=== PATIENT | male | born 1950 | race Caucasian/White ===

== ENCOUNTER 2022-03-07 12:26 | Emergency (ER) | payer MEDICARE, BC, SELFPAY ==
[2022-03-07 12:38] VITALS: BP 159/79; PULSE 68; RESP 16; TEMP 36.6; O2SAT 94; BMI 24.4
[2022-03-07 12:44] VITALS: BP 160/77; PULSE 70; RESP 16; O2SAT 97
--- NOTE | 2022-03-07 12:53 | ED.GENADULT ---
HPI - General Adult General Time Seen by Provider: 12:53 Date Seen: 03/07/22 Chief complaint: Bug Bite Stated complaint: Bee sting right hand, allergic Time Seen by Provider: 03/07/22 12:28 Source: patient Mode of arrival: ambulatory Limitations: no limitations History of Present Illness HPI narrative: Patient is a 9 year white male who is allergic to be bites, was out in his yd and got bit through glove by some insect. This happened over an hour ago. Typically has reaction which can include hives and some tongue swelling in 20 minutes. This has not happened. He feels pretty well. He has no stinger in his right dorsum of his hand. He has got a quarter-size reddened area. No breathing difficulty is O2 sat is excellent. He is not allergic to any medicine he came in more so mostly for precautionary reasons Related Data Home Medications Medication Instructions Recorded Confirmed atorvastatin 40 mg tablet mg 03/07/22 chlorthalidone 25 mg tablet mg 03/07/22 glipizide 5 mg tablet, extended mg PO 03/07/22 release 24 hr lisinopril 20 mg tablet mg 03/07/22 metformin 500 mg tablet,extended mg PO 03/07/22 release 24 hr Allergies Allergy/AdvReac Type Severity Reaction Status Date / Time Bee venom Allergy Severe Difficulty Uncoded 03/05/22 10:15 Swallowing Penicillin Allergy Unknown Uncoded 03/05/22 10:15 Review of Systems Status of ROS: Reports: 6 or more systems reviewed and unremarkable except as noted in History and below [facility] Medical History Abnormal gait Constipation Surgical History History of right-sided carotid endarterectomy History of tonsillectomy (1968) Social History Narrative: history of tobacco use Exam Narrative: Exam Narrative: Objective patient's O2 sat is 94% on room air, he talks in even and nonlabored sentences. He denies any throat swelling any difficulty breathing. His right hand shows a reddened quarter-size wilfredo on his dorsum of his hand there is no stinger present. Const: Vital Signs, click to edit/add: Vital Signs - 24 hr 03/07/22 12:38 03/07/22 12:44 03/07/22 13:00 Temperature 97.9 F Pulse Rate [Left P ulse Oximeter] 68 70 68 Respiratory Rate 16 16 16 Blood Pressure [Le ft Upper Arm] 159/79 H 160/77 H 166/82 H Pulse Oximetry 94 97 95 03/07/22 13:02 03/07/22 13:30 Temperature Pulse Rate [Left P ulse Oximeter] 67 62 Respiratory Rate 16 16 Blood Pressure [Le ft Upper Arm] 146/78 H Pulse Oximetry 96 95 Course Vital Signs Vital signs: Initial Vital Signs Temperature 97.9 F 03/07/22 12:38 Temperature Source Temporal Artery Scan 03/07/22 12:38 Pulse Rate 68 03/07/22 12:38 Pulse Rhythm 03/07/22 12:38 Respiratory Rate 16 03/07/22 12:38 Blood Pressure 159/79 H 03/07/22 12:38 Blood Pressure Mean 105 03/07/22 12:38 Blood Pressure Position Sitting 03/07/22 12:38 Pulse Oximetry 94 03/07/22 12:38 Oxygen Delivery Method 03/07/22 12:38 Vital Signs Temperature 97.9 F 03/07/22 12:38 Pulse Rate 68 03/07/22 12:38 Respiratory Rate 16 03/07/22 12:38 Blood Pressure 159/79 H 03/07/22 12:38 Pulse Oximetry 94 03/07/22 12:38 Temperature 97.9 F 03/07/22 12:38 Pulse Rate 62 03/07/22 13:30 Respiratory Rate 16 03/07/22 13:30 Blood Pressure 146/78 H 03/07/22 13:30 Pulse Oximetry 95 03/07/22 13:30 Medical Decision Making MDM Narrative Medical decision making narrative: Patient because of his insect bite will be given prednisone 50 mg orally and Benadryl 25 mg orally. 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 It does sound like he has not had true anaphylactic reaction. Would recommend careful monitoring and recheck within the next couple of days with primary care as needed. Will observe him in the ED for a period of time and then immediately may be discharged home. Activity Level: No Restrictions Discharge Diet: Regular Prescriptions: No Action atorvastatin 40 mg tablet 0RF lisinopril 20 mg tablet 0RF glipizide 5 mg tablet extended release 24 hr PO 0RF chlorthalidone 25 mg tablet 0RF metformin 500 mg tablet extended release 24 hr PO 0RF Follow Up/Referrals: Santi Juarez MD [Primary Care Provider] - Stand Alone Forms: [employer] Info Instructions
[2022-03-07 13:00] VITALS: BP 166/82; PULSE 68; RESP 16; O2SAT 95
[2022-03-07] MEDS: diphenhydrAMINE 25 MG CAPSULE PO (13:01)
[2022-03-07 13:02] VITALS: PULSE 67; RESP 16; O2SAT 96
[2022-03-07] MEDS: predniSONE 10 MG TABLET 50 MG PO (13:02)
[2022-03-07 13:30] VITALS: BP 146/78; PULSE 62; RESP 16; O2SAT 95
== END 2022-03-07 13:53 | disposition home or self-care (01) ==
LOC: ED 13:11
PROVIDERS: Emergency Provider Family Medicine; PCP Family Medicine
DX: T63.441A Toxic effect of venom of bees, accidental (unintentional), initial encounter (principal)
CPT/HCPCS: 99282; 99283; A9270; J7512

== ENCOUNTER 2022-06-04 14:16 | Outpatient (CLI) | payer MEDICARE, BC, SELFPAY ==
--- OUTSIDE RECORDS SUMMARY | 2022-06-04 07:29 | XMS_ITS | Encounter Summary ---
:1950 Author Organization [place] Address [facility] [place] [address] Care Team Providers Name Role Phone Guero Hutchinson MD Primary Care Provider [phone] Encounter Details Date Type Department Care Team Description 11/14/2015 Hospital Pathology [facility] MD Jony Results [address] [facility] [address] [place], [place] [address] (Wo rk) Social History Tobacco Use Types Packs/Day Years Used Date Smoking Tobacco: Former Cigarettes 1 Smokeless Tobacco: Never Comments: quit 09/2005 Alcohol Use Standard Drinks/Week Comments Yes 0 (1 standard drink = 0.6 oz pure alcoho l) rarely Sex Assigned at Date Recorded Not on file documented as of this encounter Plan of Treatment Not on filedocumented as of this encounter Procedures Procedure Name Priority Date/Time Associated Diagnosis Comme nts CYTOLOGY NON TIMBER INSPECTOR Routine 11/14/2015 1:38 PM Resul ts for this CDT procedure are i n the results section. documented in this encounter Results Cytology non obgyn nurse (11/14/2015 1:38 PM CDT) Component Value Ref Test Analysis Performed At [facility] Range Method Time Signature Copath Report Patient Name: WONG MOLINA MR#: [id number] Specimen #: [id number] Collected: 11/14/2015 Received: 11/15/2015 Reported: 11/16/2015 12:09 Ordering Phy(s): GUERO HUTCHINSON SPECIMEN/STAIN PROCESS: Urine-voided ? Pap-Cyto x 1 ---- CYTOLOGIC INTERPRETATION: Urine-voided: ?? Negative for Malignancy Positive for crystals. Specimen Adequacy: Satisfactory for evaluation. Electronically signed out by: Brandt Monae M.D. Processed and screened at [facility] CLINICAL HISTORY: , GROSS: Urine-voided: ??Received 15 ml of light yellow, clear fluid, processed as 1 Pap stained Autocyte.. Microscopic: The AutoCyte the slide shows low cellularity wi th benign urothelial cells and the background of numerous small donavan ls. ??No malignant cells are seen. CPT Codes: A: 75737-[id number] TESTING LAB LOCATION: [facility] [address] ??[address] COLLECTION SITE: Client: ??[facility] Location: ??SA888 (F) Specimen Anatomical Collection Method Collection Time Receive d Time (Source) Location / / Volume Laterality 11/14/2015 1:38 PM 6 8:08 CDT AM CDT Guero Hutchinson MD LAB - [facility]ICAL SPECIM EN Performing Organization Address City/State/ZIP Code Phon e Number COPATH documented in this encounter Visit Diagnoses Not on filedocumented in this encounter Care Teams Educational Psychologist Relationship Specialty Start Date End Date Guero Hutchinson MD PCP - General Urology 11/14/15 [address] [address] documented as of this encounter
--- OUTSIDE RECORDS SUMMARY | 2022-06-04 07:29 | XMS_ITS | Clinical Summary ---
:1950 Author Organization [place] Address [facility] [place] [address] Care Team Providers Name Role Phone Guero Hutchinson MD Primary Care Provider [phone] Allergies Active Allergy Reactions Severity Noted Date Comments Bee 12/18/2004 Penicillins 11/17/2004 Medications Medication Sig Dispensed Refills Start Date End Date Status ASPIRIN 81 MG OR 1 TABLET DAILY 0 Active TABSIndications: Essential hypertension, benign EPINEPHrine (EPIPEN) Inject 0.3 mLs (0.3 1 each 3 3 Active 0.3 MG/0.3ML mg) into the muscle injectionIndications once as needed for : Bee allergy anaphylaxis status, Chronic rhinitis Additional Information Patient not taking. Reported on 09/10/2017 lisinopril-hydrochlorothiazide Take 1 tablet 90 tablet 3 03/20 Active (PRINZIDE,ZESTORETIC) 20-25 MG per by mouth every tabletIndications: Unspecified morning Needs essential hypertension labs for more refills atenolol (TENORMIN) 50 MG Take 1 tablet 30 tablet 11 03/20/2013 Active tabletIndications: Unspecified (50 mg) by essential hypertension mouth daily SIMVASTATIN PO 0 Activ e Active Problems Problem Noted Date Hypertension goal BP (blood pressure) < 140/90 012 Advanced directives, counseling/discussion 09/06/2011 Overview: PT will bring copy for chart. CARDIOVASCULAR SCREENING; LDL GOAL LESS THAN 130 06/11 Benign neoplasm of colon 05/28/2007 Allergic state 12/11/2005 Overview: Problem list name updated by automated p rocess. Provider to review Allergic rhinitis 12/11/2005 Overview: Problem list name updated by automated p rocess. Provider to review Resolved Problems Problem Noted Date Resolved Date Essential hypertension 05/10/2006 03/03/2013 Overview: Problem list name updated by automated p rocess. Provider to review [email or web address] 04/11/2005 05/15/2005 iamACCIDENT ON INDUSTR PREMISES 04/11/2005 05/15/20 05 Overexertion and strenuous and repetitive movements or loads 04/11/2005 05/15/2005 Overview: Problem list name updated by automated p rocess. Provider to review and confirm Imo Update utility Immunizations Name Administration Dates Next Due Influenza (IIV3) PF 05/12/2011, 04/12/2010 TD (ADULT, 7+) 11/17/2004 Family History Medical History Relation Comments Cancer Mother Relation Status Comments Brother Alive Father Mother Sister 1 Alive Sister 2 Alive Sister 3 Alive Sister 4 Alive Social History Tobacco Use Types Packs/Day Years Used Date Smoking Tobacco: Former Cigarettes 1 Smokeless Tobacco: Never Tobacco Cessation: Counseling Given: No Comments: quit 09/2005 Alcohol Use Standard Drinks/Week Comments Yes 0 (1 standard drink = 0.6 oz pure alcoho l) rarely Sex Assigned at Date Recorded Not on file Last Filed Vital Signs Vital Sign Reading Time Taken Comments Blood Pressure 122/78 09/10/2017 9:11 AM COMMUNITY RELATIONS SPECIALIST Pulse 70 09/10/2017 9:11 AM COMMUNITY RELATIONS SPECIALIST Temperature 36.7 ??C (98 ??F) 03/26/2013 9:28 AM CDT Respiratory Rate 18 03/26/2013 9:28 AM CDT Oxygen Saturation 98% 03/26/2013 9:28 AM CDT Inhaled Oxygen Concentration - - Weight 106.6 kg (235 lb) 09/10/2017 9:11 AM COMMUNITY RELATIONS SPECIALIST Height 188 cm (6' 2) 09/10/2017 9:11 AM COMMUNITY RELATIONS SPECIALIST Body Mass Index 30.17 09/10/2017 9:11 AM COMMUNITY RELATIONS SPECIALIST Plan of Treatment Health Maintenance Due Date Last Done Comments ANNUAL REVIEW OF HM ORDERS 1950 CT COLONOGRAPHY 1950 FIT-DNA (Cologuard) 1950 FIT 1950 FLEX SIG 1950 HEPATITIS B IMMUNIZATION (1 1950 of 3 - 3-dose series) COVID-19 Vaccine (#1) 1950 HEPATITIS C SCREENING 01/11/1970 LUNG CANCER SCREENING 01/11/2002 ZOSTER IMMUNIZATION (1 of 01/11/2002 2) MICROALBUMIN 11/22/2012 11/23/2011 BMP 03/26/2014 03/26/2013, 12/04/2012, 11/23/2011, Additional history exists CREATININE 03/26/2014 03/26/2013, 12/04/2012, 11/23/2011, Additional history exists DTAP/TDAP/TD IMMUNIZATION 11/17/2014 11/17/2004 (2 - Td or Tdap) ADVANCE CARE PLANNING 09/06/2016 09/06/2011 AORTIC ANEURYSM SCREENING 01/11/2017 (SYSTEM ASSIGNED) FALL RISK ASSESSMENT 01/11/2017 MEDICARE ANNUAL WELLNESS 01/11/2017 12/04/2012, 11/23/2011, VISIT 02/18/2008, Additional history exists Pneumococcal Vaccine: 65+ 01/11/2017 Years (1 - PCV) LIPID 03/26/2018 03/26/2013, 12/04/2012, 11/23/2011, Additional history exists COLONOSCOPY 11/23/2019 11/22/2009, 12/27/2004 COLORECTAL CANCER SCREENING 11/23/2019 PHQ-2 (once per calendar 08/12/2021 year) INFLUENZA VACCINE (#1) 2022 05/19/2014, 05/11/2012, 05/14/2011, Additional history exists IPV IMMUNIZATION Aged Out No longer eligi ble based on patient 's age to complete this topic MENINGITIS IMMUNIZATION Aged Out No longe r eligible based on patient 's age to complete this topic Insurance Payer Benefit Plan / Subscriber ID Effective Phone Address T ype Group Dates WORK COMP FAIRGIACOMO [id number] 2005-Pres [address] [place] [address] MEDICARE MEDICARE FOR HB [id number] 2017-Prese [phone] ATTN CLAIMS Medicare SUPPLEMENT nt [address] [place] [address] [id number] (Home) [place] [address] [id number] Worker's Employer 08/12/1999 [phone] [address] [place] Compensation 3 (Home) [facility] [place] Care Teams It Support Consultant Relationship Specialty Start Date End Date Guero Hutchinson MD PCP - General Urology 11/14/15 [address] [place] [address]
--- OUTSIDE RECORDS SUMMARY | 2022-06-04 07:29 | XMS_ITS | Encounter Summary ---
:1950 Author Organization [place] Address [facility] [place] [address] Care Team Providers Name Role Phone Guero Hutchinson MD Primary Care Provider [phone] Encounter Details Date Type Department Care Team Description 07/01/2019 Travel Social History Tobacco Use Types Packs/Day Years Used Date Smoking Tobacco: Former Cigarettes 1 Smokeless Tobacco: Never Comments: quit 09/2005 Alcohol Use Standard Drinks/Week Comments Yes 0 (1 standard drink = 0.6 oz pure alcoho l) rarely Sex Assigned at Date Recorded Not on file documented as of this encounter Plan of Treatment Not on filedocumented as of this encounter Visit Diagnoses Not on filedocumented in this encounter Care Teams Campground Manager Relationship Specialty Start Date End Date Guero Hutchinson MD PCP - General Urology 11/14/15 [address] [place] [address] documented as of this encounter
--- OUTSIDE RECORDS SUMMARY | 2022-06-04 07:29 | XMS_ITS | Encounter Summary ---
:1950 Author Organization [place] Address [facility] [place] [address] Care Team Providers Name Role Phone Boris Balderrama MD Primary Care Provider [phone] Reason for Visit Reason Comments Recheck Medication fasting Encounter Details Date Type Department Care Team Description 03/26/2013 Office Visit [facility] Boris Balderrama Benign hypertension (Primary Dx); [facility] HallLucho Hewitt MD ALLERGY, UNSPECIFIED; [address] [place] [address] BENIGN [place] [address] [phone] Social History Tobacco Use Types Packs/Day Years Used Date Smoking Tobacco: Former Cigarettes 1 Smokeless Tobacco: Never Comments: quit 09/2005 Alcohol Use Standard Drinks/Week Comments Yes 0 (1 standard drink = 0.6 oz pure alcoho l) rarely Sex Assigned at Date Recorded Not on file documented as of this encounter Last Filed Vital Signs Vital Sign Reading Time Taken Comments Blood Pressure 144/90 03/26/2013 9:28 AM CDT Pulse 57 03/26/2013 9:28 AM CDT Temperature 36.7 ??C (98 ??F) 03/26/2013 9:28 AM CDT Respiratory Rate 18 03/26/2013 9:28 AM CDT Oxygen Saturation 98% 03/26/2013 9:28 AM CDT Inhaled Oxygen Concentration - - Weight 103.4 kg (228 lb) 03/26/2013 9:28 AM CDT Height - - Body Mass Index 29.27 03/20/2013 2:49 PM CDT documented in this encounter Progress Notes Boris Balderrama MD - 03/26/2013 9:17 AM CDT SUBJECTIVE: Suresh Martinez is a 63 year old male who presents to clinic today for the following health issues: Hyperlipidemia Follow-Up ?? Following low fat/cholesterol diet?: not monitoring fat ?? Taking statin? No ?? Taking Niaspan/niacin? No ?? Other medications/supplements?: none Hypertension Follow-up ?? Outpatient blood pressures are being checked at work. Results are varies . ?? Low Salt Diet: not monitoring salt ?? Amount of exercise or daily activities, outside of work: active at work, walks about 10-12 miles during work ?? Problems taking medications regularly No ?? Medication side effects: none ?? Diet: regular (no restrictions) History Substance Use Topics ??? Smoking status: Former Smoker -- 1.0 packs/day Types: Cigarettes ??? Smokeless tobacco: Never Used Comment: quit 09/2005 ??? Alcohol Use: Yes rarely Problem list and histories reviewed & adjusted, as indicated. Additional history: as documented PROBLEMS TO ADD ON... Patient Active Problem List Diagnosis ??? ALLERGY, UNSPECIFIED ??? ALLERGIC RHINITIS NOS ??? BENIGN NEOPLASM LG BOWEL ??? CARDIOVASCULAR SCREENING; LDL GOAL LESS THAN 130 ??? Advanced directives, counseling/discussion ? ? Hypertension goal BP (blood pressure) < 140/90 History reviewed. No pertinent past surgical history. History Substance Use Topics ??? Smoking status: Former Smoker -- 1.0 packs/day Types: Cigarettes ??? Smokeless tobacco: Never Used Comment: quit 09/2005 ??? Alcohol Use: Yes rarely Family History Problem Relation Age of Onset ??? Cancer Mother REVIEW OF SYSTEMS Generally has been feeling well until this episode. No problems with vision, hearing, dental or neckpain.Has had airborne or ingestion allergy No chest pain, palpitations, dyspnea, change in bowel habits, blood in stool or dyspepsia. No rashes, changing moles, weakness, lassitude or back problems. No chronic issues . No dysuria or menstrual irregularity. Patient not a smoker. No problems with significant headaches. On exam the vital signs are stable Weight is stable Eyes show rojas No neck masses or thyromegaly.Ear nose and throat shows normal No bruits, murmers, rubs or extrasounds. No cardiomegaly or chest wall tenderness. Lungs clear, no abdominal masses or organomegaly. No CVA tenderness. Skin eval no rash No hernias, good range of motion neck, back and extremities. No abnormal skin lesions. Normal genitalia. Good peripheral pulses. No adenopathy. Normal gait and stance. Neck is supple. Back exam shows limited lateral flexion 401.1 Benign hypertension (primary encounter diagnosis) Comment: Plan: Comprehensive metabolic panel, Lipid panel reflex to direct LDL 995.3 ALLERGY, UNSPECIFIED Comment: Plan: 211.3 BENIGN NEOPLASM LG BOWEL Comment: Plan: rescreen as needed documented in this encounter Nursing Notes 03/26/2013 9:30 AM CDT >> SYLVESTER WIL[facility] Mar 26, 2013 9:31 AM Patient presents with: Recheck Medication - fasting *Patient states that he did not take bp medications this am, unsure if medications effect blood work Initial BP 144/90 Pulse 57 Temp 98 ??F (36.7 ??C) (Oral) Resp 18 Wt 228 lb (103.42 kg) SpO2 98% Estimated Body mass index is 29.27 kg/(m^2) as calculated from the following: Height as of 13: 6' 2(1.88 m). Weight as of this encounter: 228 lb(103.42 kg). BP completed using cuff size: large.Sylvester Patrick MA documented in this encounter Plan of Treatment Not on filedocumented as of this encounter Procedures Procedure Name Priority Date/Time Associated Diagnosis Comme nts LIPID REFLEX TO DIRECT Routine 03/26/2013 9:54 Benign hyperten noelle Results for this LDL PANEL AM CDT procedure are i n the results section. COMPREHENSIVE Routine 03/26/2013 9:54 Benign hypertension Resu lts for this METABOLIC PANEL AM CDT procedure ar e in the results section. documented in this encounter Results (ABNORMAL) Lipid panel reflex to direct LDL (03/26/2013 9:54 AM CDT) athologist Signature Cholesterol 221 (H) 0 - 200 [facility] mg/dL [facility] Comment: LDL Cholesterol is the primary guide to therapy. The NCEP recommends further evaluation of: patients with cholesterol greater than 200 mg/dL if additional risk facto rs are present, cholesterol greater than 240 mg/dL, triglycerides greater than 1 50 mg/dL, or HDL less than 40 mg/dL. Triglycerides 364 (H) 0 - 150 mg/dL [facility] HDL Cholesterol 26 (L) 40 - 110 mg/dL [facility] LDL Cholesterol Calculated 123 0 - 129 mg/dL [facility] Comment: LDL Cholesterol is the primary guide to therapy: LDL-cholesterol goal in high risk patients is <100 mg/dL and in very high risk patients is <70 mg/dL. VLDL-Cholesterol 73 (H) 0 - 30 mg/dL [facility] Cholesterol/HDL Ratio 8.7 (H) 0.0 - 5.0 [facility] Specimen Anatomical Collection Method Collection Time Receive d Time (Source) Location / / Volume Laterality Blood specimen 03/26/2013 9:54 AM 013 9:55 (specimen) CDT AM CDT Boris Balderrama MD LAB - BLOOD ORDERABLES Performing Organization Address City/State/ZIP Code Phon e Number [facility] [address] [place] [address] [facility] [address] [place] [address] (ABNORMAL) Comprehensive metabolic panel (03/26/2013 9:54 AM CDT) athologist Signature Sodium 140 133 - 144 [facility] mmol/L [facility] Potassium 4.4 3.4 - 5.3 [facility] mmol/L [facility] Chloride 103 94 - 109 [facility] mmol/L [facility] Carbon Dioxide 27 20 - 32 [facility] mmol/L [facility] Anion Gap 10 6 - 17 [facility] mmol/L [facility] Glucose 115 (H) 60 - 99 [facility] mg/dL [facility] Comment: Fasting specimen Urea Nitrogen 15 7 - 30 mg/dL [facility] Creatinine 0.90 0.66 - 1.25 mg/dL [facility] GFR Estimate 86 >60 mL/min/1.7m2 [facility] GFR Estimate If Black >90 >60 mL/min/1.7m2 [facility] Calcium 9.4 8.5 - 10.4 mg/dL [facility] Bilirubin Total 1.0 0.2 - 1.3 mg/dL [facility] Albumin 4.2 3.3 - 4.9 g/dL [facility] Comment: Reference range changed on 04/13. Protein Total 7.5 6.8 - 8.8 g/dL [facility] Comment: As of 07, reference range reflects plasma specimen type. Alkaline Phosphatase 53 40 - 150 U/L [facility] ALT 36 0 - 70 U/L [facility] AST 33 0 - 45 U/L [facility] Specimen Anatomical Collection Method Collection Time Receive d Time (Source) Location / / Volume Laterality Blood specimen 03/26/2013 9:54 AM 013 9:55 (specimen) CDT AM CDT Boris Balderrama MD LAB - BLOOD ORDERABLES Performing Organization Address City/State/ZIP Code Phon e Number [facility] [address] [place] [address] [phone] [facility] [address] [place] [address] documented in this encounter Visit Diagnoses Diagnosis Benign hypertension - Primary Essential hypertension, benign ALLERGY, UNSPECIFIED Allergy, unspecified not elsewhere class ified BENIGN NEOPLASM LG BOWEL Benign neoplasm of colon documented in this encounter Care Teams Manager Generation Relationship Specialty Start Date End Date Boris Balderrama MD PCP - General 02/20/02 11/13/15 [address] [place] [address] documented as of this encounter
--- OUTSIDE RECORDS SUMMARY | 2022-06-04 07:29 | XMS_ITS | Encounter Summary ---
:1950 Author Organization [place] Address [address] [place] [address]. [place] [address] Care Team Providers Name Role Phone Boris Balderrama MD Primary Care Provider [phone] Reason for Visit Reason Onset Date Comments Panel Management 03/03/2013 Encounter Details Date Type Department Care Team Description 03/03/2013 Telephone [facility] Boris Balderrama Panel Management Kindra Hewitt MD [address] [place] [address] [place] [id number] [phone] Social History Tobacco Use Types Packs/Day Years Used Date Smoking Tobacco: Former Cigarettes 1 Smokeless Tobacco: Never Comments: quit 09/2005 Alcohol Use Standard Drinks/Week Comments Yes 0 (1 standard drink = 0.6 oz pure alcoho l) rarely Sex Assigned at Date Recorded Not on file documented as of this encounter Miscellaneous Notes Telephone Encounter - Betsy Diaz - 03/11/2013 9:05 AM CDT Sent letter to patient - final attempt. Betsy Diaz Telephone Encounter - Naila Cosby - 03/03/2013 12:24 PM CDT Panel Management Review Date of last visit with a [place] provider: Dr. Balderrama on 12/04/2012. Date of next visit with a [place] provider: None. Problem List Patient Active Problem List Diagnosis ??? ALLERGY, UNSPECIFIED ??? ALLERGIC RHINITIS NOS ??? BENIGN NEOPLASM LG BOWEL ??? CARDIOVASCULAR SCREENING; LDL GOAL LESS THAN 130 ??? Advanced directives, counseling/discussion ? ? Hypertension goal BP (blood pressure) < 140/90 Health Maintenance List Health Maintenance Topic Date Due ??? Microalbumin Q1 Year( No Inbasket) 11/22/2012 ??? Influenza Vaccine (System Assigned) 05/12/2013 ??? Bmp Q1 Yr (No Inbasket) 12/04/2013 ??? Tetanus Immunization ( [place] Assigned) 11/17/2014 ??? Advance Directive Planning Q5 Yrs (No Inbasket) 09/06/2016 ??? Lipid Screen Q5 Yr Male (System Assigned) 12/04/2017 ??? Colon Cancer Screen (System Assigned) 11/23/2019 For diabetic patients with hypertension and/or hyperlipidemia, only choose diabetes. Patient has the following on his problem list: Hypertension Review Blood pressure goal on problem list: <140/90 Last three blood pressure readings: BP Readings from Last 3 Encounters: 12/04/12 120/80 11/24/12 146/100 11/23/11 150/76 Blood pressure: Passed Composite cancer screening Chart review shows that this patient is due/due soon for the following None Tobacco History History Smoking status ??? Former Smoker -- 1.0 packs/day ??? Types: Cigarettes Smokeless tobacco ??? Never Used Comment: quit 09/2005 Summary: Patient is due/failing the following: LDL Action needed: Patient needs office visit for abnormal lab results from 12/04. Pt was supposed to come in for OV to check for pre diabetes but never schedule. Type of outreach: Phone, left message for patient to call back. Questions for provider review: None Please indicate office visit, lab, MTM, or nurse appt if needed. Indicate fasting or not fasting. Naila Cosby CMA Chart routed to Care Team . documented in this encounter Plan of Treatment Not on filedocumented as of this encounter Visit Diagnoses Not on filedocumented in this encounter Care Teams [employer] Paralegal Relationship Specialty Start Date End Date Boris Balderrama MD PCP - General 02/20/02 11/13/15 [address] [place] [address] documented as of this encounter
--- OUTSIDE RECORDS SUMMARY | 2022-06-04 07:29 | XMS_ITS | Encounter Summary ---
:1950 Author Organization [place] Address [facility]0 [facility] [address] Care Team Providers Name Role Phone Boris Balderrama MD Primary Care Provider [phone] Reason for Visit Reason Onset Date Comments Panel Management 08/08/2013 Encounter Details Date Type Department Care Team Description 08/08/2013 Telephone [facility] Boris Balderrama Panel Management Center LineLucho Hewitt MD [address] [place] [address] [place] [address] [id number] [phone] Social History Tobacco Use Types Packs/Day Years Used Date Smoking Tobacco: Former Cigarettes 1 Smokeless Tobacco: Never Comments: quit 09/2005 Alcohol Use Standard Drinks/Week Comments Yes 0 (1 standard drink = 0.6 oz pure alcoho l) rarely Sex Assigned at Date Recorded Not on file documented as of this encounter Miscellaneous Notes Telephone Encounter - Parisa Hernadez - 08/08/2013 11:46 AM CST Panel Management Review Date of last visit with a [place] provider: Dr. NICHOLSON on 03/26/2013. Date of next visit with a [place] provider: None. Problem List Patient Active Problem [...] 05/12/2013 ??? Bmp Q1 Yr (No Inbasket) 03/26/2014 ??? Tetanus Immunization (System Assigned) 11/17/2014 ??? Advance Directive Planning Q5 Yrs (No Inbasket) 09/06/2016 ??? Lipid Screen Q5 Yr Male (System Assigned) 03/26/2018 ??? Colon Cancer Screen (System Assigned) 11/23/2019 For diabetic patients with hyperlipidemia, only choose diabetes. Patient has the following on his problem list: Hypertension Review Blood pressure goal on problem list: <140/90 Last three blood pressure readings: BP Readings from Last 3 Encounters: 03/26/13 144/90 03/20/13 136/60 12/04/12 120/80 Failed: BP Hyperlipidemia LDL goal on problem list: <160 Last LDL: LDL Cholesterol Calculated Date Value Range Status 03/26/2013 123 0 - 129 mg/dL Final LDL Cholesterol is the primary guide to therapy: LDL-cholesterol goal in high risk patients is <100 mg/dL and in very high risk patients is <70 mg/dL. LDL Cholesterol Direct Date Value Range Status 12/04/2012 113 0 - 129 mg/dL Final Optimal: <100 mg/dL Near Optimal: 100-129 mg/dL Borderline High: 130-159 mg/dL High: 160-189 mg/dL Very high: greater than or equal to 190 mg/dL Cannot estimate LDL when triglyceride exceeds 400 mg/dL LDL tested: passed Tobacco : Passed Composite cancer screening Chart review shows that this patient is due/due soon for the following None Tobacco History History Smoking status ??? Former Smoker -- 1.0 packs/day ??? Types: Cigarettes Smokeless tobacco ??? Never Used Comment: quit 09/2005 Summary: Patient is due/failing the following: BP CHECK Action needed: Patient needs nurse only appointment. Type of outreach: Phone, left message for patient to call back. Questions for provider review: None Please indicate office visit, lab, MTM, or nurse appt if needed. Indicate fasting or not fasting. Parisa Hernadez/ALVIN [place]---[facility] Chart routed to Care Team . PURPOSE CLERK documented in this encounter Plan of Treatment Not on filedocumented as of this encounter Visit Diagnoses Not on filedocumented in this encounter Care Teams Automobile Radiator Mechanic Relationship Specialty Start Date End Date Boris Balderrama MD PCP - General 02/20/02 11/13/15 [address] [place] [address] documented as of this encounter
--- OUTSIDE RECORDS SUMMARY | 2022-06-04 07:29 | XMS_ITS | Encounter Summary ---
:1950 Author Organization [place] Address [facility] [place] [address] Care Team Providers Name Role Phone Guero Hutchinson MD Primary Care Provider [phone] Reason for Visit Reason Comments Cystoscopy BTR Encounter Details Date Type Department Care Team Description 09/10/2017 Office Visit [facility] Guero Hutchinson Person al history of malignant neoplasm of bladder (Primary Dx); Urology Clinic [place] Borges MD Enlarged prostate [address] [place] [address] [place] [address] [phone] Social History Tobacco Use Types Packs/Day Years [...] Comments Blood Pressure 122/78 09/10/2017 9:11 AM IRRIGATOR VALVE PIPE Pulse 70 09/10/2017 9:11 AM IRRIGATOR VALVE PIPE Temperature - - Respiratory Rate - - Oxygen Saturation - - Inhaled Oxygen Concentration - - Weight 106.6 kg (235 lb) 09/10/2017 9:11 AM IRRIGATOR VALVE PIPE Height 188 cm (6' 2) 09/10/2017 9:11 AM IRRIGATOR VALVE PIPE Body Mass Index 30.17 09/10/2017 9:11 AM IRRIGATOR VALVE PIPE documented in this encounter Patient Instructions Patient InstructionsCalDavid trinh LPN - 09/10/2017 9:00 AM CST AFTER YOUR CYSTOSCOPY You have just completed a cystoscopy, or cysto, which allowed your physician to learn more about your bladder (or to remove a stent placed after surgery). We suggest that you continue to avoid caffeine, fruit juice, and alcohol for the next 24 hours, however, you are encouraged to return to your normal activities. A few things that are considered normal after your cystoscopy: * small amount of bleeding (or spotting) that clears within the next 24 hours * slight burning sensation with urination * sensation to of needing to avoid more frequently * the feeling of air in your urine * mild discomfort that is relieved with Tylonol Please contact our office promptly if you: * develop a fever above 101 degrees * are unable to urinate * develop bright red blood that does not stop * severe pain or swelling And of course, please contact our office with any concerns or questions [phone] GATOR VALVE PIPE documented in this encounter Progress Notes Guero Hutchinson MD - 09/10/2017 9:00 AM CST Office Visit Note [facility] UROLOGIC DIAGNOSES: History of bladder cancer and kidney stone CURRENT INTERVENTIONS: TURBT 2013 HISTORY: This is a 67-year-old gentleman who was diagnosed with bladder cancer in [facility] in 2013. He has had no recurrence since that time. He saw me once in 2015 for a surveillance cystoscopy. I had recommended that he come back to see me again in 1 year for his next surveillance cystoscopy at the time. He also has had a history of a kidney stone. He last had a KUB in November 2015 and it was negative. His PSA is normal today. He is here today for a surveillance cystoscopy as well. PAST MEDICAL HISTORY: Past Medical History: Diagnosis Date ??? Unspecified essential hypertension PAST SURGICAL HISTORY: No past surgical history on file. FAMILY HISTORY: Family History Problem Relation Age of Onset ??? CANCER Mother SOCIAL HISTORY: Social History Substance Use Topics ??? Smoking status: Former Smoker Packs/day: 1.00 Types: Cigarettes ??? Smokeless tobacco: Never Used Comment: quit 09/2005 ??? Alcohol use Yes Comment: rarely Current Outpatient Prescriptions Medication ??? SIMVASTATIN PO ??? ciprofloxacin (CIPRO) 500 MG tablet ??? lisinopril-hydrochlorothiazide (PRINZIDE,ZESTORETIC) 20-25 MG per tablet ??? atenolol (TENORMIN) 50 MG tablet ??? ASPIRIN 81 MG OR TABS ??? EPINEPHrine (EPIPEN) 0.3 MG/0.3ML injection No current facility-administered medications for this visit. PHYSICAL EXAM: Ht 1.88 m (6' 2) Wt 106.6 kg (235 lb) BMI 30.17 kg/m2 HEENT: Normocephalic and atraumatic Cardiac: Not done Back/Flank: Not done EDGE INKER UPPERS/PNS: Not done Respiratory: Normal non-labored breathing Abdomen: Soft nontender and nondistended Peripheral Vascular: Not done Mental Status: Not done Penis: Normal Scrotal skin: Normal, no lesions Testicles: Normal to palpation bilaterally Epididymis: Normal to palpation bilaterally Lymphatic: Normal inguinal lymph nodes Digital Rectal Exam: Cystoscopy: I performed flexible cystoscopy today and the bladder was normal throughout. No tumors identified throughout the bladder. On retroflexion of the scope the patient had an enlarged prostate, in particular he had an anterior intravesical segment present Imaging: None Urinalysis: UA RESULTS: No results for input(s): COLOR, APPEARANCE, URINEGLC, URINEBILI, URINEKETONE, SG, UBLD, URINEPH, PROTEIN, UROBILINOGEN, NITRITE, LEUKEST, RBCU, WBCU in the last [id number] hours. PSA: 2.0 today Post Void Residual: Other labs: None today IMPRESSION: No evidence of bladder cancer recurrence, enlarged prostate PLAN: We discussed the surveillance plan for his bladder cancer. He will need to come back sometime in thenext couple of weeks to give a urine cytology. Then I will see him back in 1 year for another PSA and surveillance cystoscopy. We will check a renal ultrasound at that time as well. We discussed the enlarged prostate. It is not causing him any symptoms at this time so for now we will observe this. Total Time: 20 minutes Total in Consultation: 15 minutes Guero Hutchinson M.D. GATOR VALVE PIPE documented in this encounter Nursing Notes David Jeff LPN - 09/10/2017 9:00 AM CST Chief Complaint Patient presents with ??? Cystoscopy BTR David Jeff LPN 9:13 AM September 10, 2017 Prior to the start of the procedure and with procedural staff participation, I verbally confirmed the patient???s identity using two indicators, relevant allergies, that the procedure was appropriate and matched the consent or emergent situation, and that the correct equipment/implants were available. Immediately prior to starting the procedure I conducted the Time Out with the procedural staff and re-confirmed the patient???s name, procedure, and site/side. I have wiped the patient off with the povidone-Iodine solution, draped them, used Lidocaine hydrochloride jelly, and instilled sterile water in to the bladder. (The Joint Commission universal protocol was followed.) Yes Sedation (Moderate or Deep): None David Jeff LPN 9:13 AM September 10, 2017 GATOR VALVE PIPE documented in this encounter Plan of Treatment Pending Results Name Type Priority Associated Diagnoses Date/Ti me Cytology non garage door service technician Lab Routine 09/10/2017 8:47 AM IRRIGATOR VALVE PIPE documented as of this encounter Procedures Procedure Name Priority Date/Time Associated Diagnosis Comme nts CYTOLOGY NON DEBT AND BUDGET COUNSELOR Routine 09/10/2017 8:47 AM IRRIGATOR VALVE PIPE PSA DIAG UROLOGIC Routine 09/10/2017 8:45 AM Resu lts for this PHYS IRRIGATOR VALVE PIPE procedure are i n the results section. documented in this encounter Results PSA Diag Urologic Phys (09/10/2017 8:45 AM IRRIGATOR VALVE PIPE) P athologist Signature PSA Diag 2.00 0.00 - 09/10/2017 [facility] 4.00 ng/mL 9:03 AM IRRIGATOR VALVE P[facility] Comment: Test performed by chemiluminesc ent immunoassay using LieboPack Specimen Anatomical Collection Method Collection Time Receive d Time (Source) Location / / Volume Laterality Blood specimen 09/10/2017 8:45 AM 018 8:46 (specimen) IRRIGATOR VALVE PIPE AM IRRIGATOR VALVE PIPE Guero Hutchinson MD LAB - BLOOD ORDERABLES Performing Organization Address City/State/ZIP Code Phon e Number [facility] [address] [phone] CLIN[address] documented in this encounter Visit Diagnoses Diagnosis Personal history of malignant neoplasm o f bladder - Primary Enlarged prostate Hypertrophy of prostate without urinary obstruction and other lower urinary tract symptoms (LUTS) documented in this encounter Care Teams Voice Systems Engineer Relationship Specialty Start Date End Date Guero Hutchinson MD PCP - General Urology 11/14/15 [address] [place] [address] documented as of this encounter
--- OUTSIDE RECORDS SUMMARY | 2022-06-04 07:29 | XMS_ITS | Encounter Summary ---
:1950 Author Organization [facility] Address [address] [place] [address]. [place] [address] Care Team Providers Name Role Phone Boris Balderrama MD Primary Care Provider Reason for Visit Reason Onset Date Comments Refill Request 12/04/2012 ATENOLOL 50MG Encounter Details Date Type Department Care Team Description 12/04/2012 Refill [facility] Boris Balderrama Refill Request (ATENOLOL [facility] PowersiteLucho Hewitt MD 50MG) [id number] [place] [id number] [phone] (Wo rk) Social History Tobacco Use Types Packs/Day Years Used Date Smoking Tobacco: Former Cigarettes 1 Smokeless Tobacco: Never Comments: quit 09/2005 Alcohol Use Standard Drinks/Week Comments Yes 0 (1 standard drink = 0.6 oz pure alcoho l) rarely Sex Assigned at Date Recorded Not on file documented as of this encounter Miscellaneous Notes Telephone Encounter - Connie Grubbs RPH - 12/04/2012 1:53 PM CDT Approved per pharmacist refill protocol. Patient is current on office visit and labs. Thanks. Connie Grubbs PharmD [facility] [email or web address] Telephone Encounter - Bridgett Fowler - 12/04/2012 10:56 AM CDT Last Fill Date: 09/04/12 Last Fill Quantity: 30 Last Office Visit: 12/04/12 Potassium Date Value Range Status 11/23/2011 4.5 3.4 - 5.3 mmol/L Final ] Creatinine Date Value Range Status 11/23/2011 0.92 0.66 - 1.25 mg/dL Final ] BP Readings from Last 3 Encounters: 12/04/12 120/80 11/24/12 146/100 11/23/11 150/76 ALT 25 11/23/2011 documented in this encounter Plan of Treatment Not on filedocumented as of this encounter Visit Diagnoses Diagnosis Unspecified essential hypertension - Arianne alvarado documented in this encounter Care Teams Bookkeeping Machine Operator Relationship Specialty Start Date End Date Boris Balderrama MD PCP - General 02/20/02 11/13/15 [address] [place] [address] documented as of this encounter
--- OUTSIDE RECORDS SUMMARY | 2022-06-04 07:29 | XMS_ITS | Clinical Summary ---
:1950 Author Organization [facility] [place] [address] Care Team Providers Name Role Phone Santi Juarez MD Primary Care Provider Allergies Active Allergy Reactions Severity Noted Date Comments Bee Pollen *Unknown 12/18/2004 Venom-Honey Bee Anaphylaxis High 04/18/2015 Penicillins *Unknown - Follow up 04/18/2015 ##No si milarities in side needed chains, very lo w to no risk of cross-s ensitivity to ANCEF. ANW Antimicrobial S tewardship Team 05/2019 Medications Medication Sig Dispensed Refills Start Date End Date Status BD ULTRA FINE LANCETS Use as directed 0 Active MISC EPINEPHrine (EpiPen 0 Active 2-Tae) 0.3 mg/0.3 mL injection blood sugar diagnostic Test once daily, 0 Active (TRUETEST TEST STRIPS) varying the times strip from before breakfast to 2 hours after starting a meal amLODIPine (NORVASC) 5 Take 2 tablets by 0 8 Active mg tablet mouth once daily. atorvastatin (LIPITOR) Take by mouth 0 12/05/2020 Active 40 mg tablet once daily in the evening. glipiZIDE Take by mouth 0 11/29/2020 Activ e extended-release once daily before (GLUCOTROL XL) 5 mg a meal. Extended-Release tablet chlorthalidone Take 12.5 mg by 0 10/12/2020 Active (HYGROTON) 25 mg tablet mouth once daily. aspirin chewable 81 mg Chew 81 mg by 0 Active chewable tablet mouth once daily with a meal. metFORMIN (GLUCOPHAGE Take 1,000 mg by 0 Active XR) 500 mg mouth 2 times Extended-Release tablet daily with meals. 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 Diabetes mellitus 04/18/2015 Gout 04/18/2015 Hematuria 04/18/2015 Hypercholesterolemia 04/18/2015 HTN (hypertension) 04/18/2015 Immunizations Name Administration Dates Next Due Influenza Virus, Unspecified 05/19/2014, 05/11/2012, 011 Tdap 11/17/2004 Social History Tobacco Use Types Packs/Day Years Used Date Former Smoker Cigarettes 1 40 Quit: 02/02/20 21 Smokeless Tobacco: Never Used Tobacco Cessation: Counseling Given: Yes Comments: pack a day Alcohol Use Standard Drinks/Week Comments Not Currently 0 (1 standard drink = 0.6 oz pure alcoho l) not for 5 years Alcohol Habits Answer Date Recorded How often do you have a drink containing alcohol? Not asked How many drinks containing alcohol do you have on a Not aske d typical day when you are drinking? How often do you have six or more drinks on one Not asked occasion? Comment: not for 5 years 12/07/2020 Sex Assigned at Date Recorded Not on file Obstetrics History Last Filed Vital Signs Vital Sign Reading Time Taken Comments Blood Pressure 154/90 12/21/2021 1:18 PM CDT Pulse 85 12/21/2021 1:18 PM CDT Temperature 36.5 ??C (97.7 ??F) 01/04/2021 8:00 AM CDT Respiratory Rate 16 01/04/2021 8:00 AM CDT Oxygen Saturation 97% 12/21/2021 1:18 PM CDT Inhaled Oxygen Concentration - - Weight 87.4 kg (192 lb 11.2 oz) 12/21/2021 1:18 PM CDT Height 188 cm (6' 2) 01/03/2021 6:29 AM CDT Body Mass Index 24.74 01/03/2021 6:29 AM CDT Plan of Treatment Health Maintenance Due Date Last Done Comments Pneumococcal series for age 65+ (1 01/11/1958 - PCV) Depression screening for age 12+ 1964 Hepatitis C screening for age 0601/11/1970 18-79 Lipids for age 45-75 01/11/1997 Zoster (shingles) series for age 0601/11/2002 50+ (1 of 2) Tetanus booster 11/17/2014 11/17/2004 Medicare Wellness for age 65+ 01/11/2017 COVID-19 vaccine series (4 - 07/27/2021 06/01/2021, 021, Booster for Pfizer series) 10/15/2020 BMI (ht and wt on same day) for 12/09/2021 12/09/2020, 11/11 age 18+ Influenza for age 65+ 04/12/2022 05/19/2014, 05/11/2012, 05/14/2011 Colonoscopy through age 75 04/01/2023 04/01/2018, 8, 11/29/2014, Additional history exists Tdap Completed 11/17/2004 AAA screening age 55-77 Completed 12/09/2020 Medical Devices Implanted Type Area Dandy Tender Device Shelf Model / Identifier Expiration Serial / Date Lot Tissue Pericardium 0.8x8cm Xenosure - [id number] Right: L emaitre 08/08/2026 0.8P8 / Implanted: Qty: 1 on 01/03/2021 by eCsar Jacobs MD at [facility] [employer] / Artery [id number] Results Not on filefrom Last 3 Months Insurance Payer Benefit Plan / Subscriber ID Effective Dates Phone Addre ss Type Group MEDICARE PART B MEDICARE PART B [id number] 2017-Presen ATTN: CLAIMS - HB USE ONLY HB ONLY t [address] [place] [address] MEDICARE PART A MEDICARE PART A [id number] 2017-Presen ATTN: CLAIMS - HB USE ONLY HB ONLY t [address] [place] [address] PREFERRED ONE PREFERRED ONE 2014-Prese [address] [address] [place] [address] MEDICARE - PB MEDICARE PB [id number] 2017-Adam ATTN : CLAIMS USE ONLY ONLY t [address] [place] [address] BLUE CROSS BLUE CROSS OF [id number] 2018-Preskenna [address] [place] rose marie [place] [phone] (Home) W [phone] [place] (Work) [id number] Suresh Martinez Personal/Family Self 1950 [address] (Home) [place] [address] Advance Directives Latest Code Status on File Code Status Date Activated Date Inactivated Comments Full Code 01/03/2021 6:00 AM 01/04/2021 1:54 PM Code Status Discussion: Not Discussed Care Teams Keypunch Operator Relationship Specialty Start Date End Date Santi Juarez MD PCP - General Family Practice 12/07/201999 [place] [address]
--- OUTSIDE RECORDS SUMMARY | 2022-06-04 07:29 | XMS_ITS | Encounter Summary ---
:1950 Author Organization [place] Address [facility] [place] [address] Care Team Providers Name Role Phone Guero Hutchinson MD Primary Care Provider [phone] Encounter Details Date Type Department Care Team Description 08/13/2019 Orders Only [facility] Guero Hutchinson ed prostate Urology Clinic Kelsi Borges MD (Primary Dx) [address] [place] [address] [place] [address] [phone] Social History Tobacco Use Types Packs/Day Years Used Date Smoking Tobacco: Former Cigarettes 1 Smokeless Tobacco: Never Comments: quit 09/2005 Alcohol Use Standard Drinks/Week Comments Yes 0 (1 standard drink = 0.6 oz pure alcoho l) rarely Sex Assigned at Date Recorded Not on file documented as of this encounter Plan of Treatment Not on filedocumented as of this encounter Visit Diagnoses Diagnosis Enlarged prostate - Primary Hypertrophy of prostate without urinary obstruction and other lower urinary tract symptoms (LUTS) documented in this encounter Care Teams Trench Pipe Layer Relationship Specialty Start Date End Date Guero Hutchinson MD PCP - General Urology 11/14/15 [address] [place] [address] documented as of this encounter
--- OUTSIDE RECORDS SUMMARY | 2022-06-04 07:29 | XMS_ITS | Encounter Summary ---
:1950 Author Organization [place] Address [facility] [place] [address] Care Team Providers Name Role Phone Rizwana Trejo MD Primary Care Provider Reason for Visit Reason Comments Insect Bites 2:15 sting happened back of head Encounter Details Date Type Department Care Team Description 03/20/2013 Office Visit [facility] Rizwana Trejo Chroni c rhinitis (Primary Dx); Clinic Kindra Hewitt MD Bee allergy status; [address] [place] [address] Unspecified [place] [address] [phone] Social History Tobacco Use Types Packs/Day Years Used Date Smoking Tobacco: Former Cigarettes 1 Smokeless Tobacco: Never Comments: quit 09/2005 Alcohol Use Standard Drinks/Week Comments Yes 0 (1 standard drink = 0.6 oz pure alcoho l) rarely Sex Assigned at Date Recorded Not on file documented as of this encounter Last Filed Vital Signs Vital Sign Reading Time Taken Comments Blood Pressure 136/60 03/20/2013 2:49 PM CDT Pulse 84 03/20/2013 2:49 PM CDT Temperature 36.8 ??C (98.3 ??F) 03/20/2013 2:49 PM CDT Respiratory Rate 20 03/20/2013 2:49 PM CDT Oxygen Saturation 96% 03/20/2013 2:49 PM CDT Inhaled Oxygen Concentration - - Weight 103.4 kg (228 lb) 03/20/2013 2:49 PM CDT Height 188 cm (6' 2) 03/20/2013 2:49 PM CDT Body Mass Index 29.27 03/20/2013 2:49 PM CDT documented in this encounter Progress Notes Rizwana Trejo MD - 03/20/2013 2:48 PM CDT SUBJECTIVE: Suresh Martinez is a 63 year old male who presents to clinic today for the following health issues: Insect Bite-Bee ?? Duration: 2:15pm ?? REVIEW OF SYSTEMS Generally has been feeling well until this episode. No problems with vision, hearing, dental or neckpain.Has has beesting and airborne or ingestion allergy No chest pain, palpitations, dyspnea, change in bowel habits, blood in stool or dyspepsia. No rashes, changing moles, weakness, lassitude or back problems. No chronic issues . No dysuria or menstrual irregularity. Patient no longer a smoker. No problems with significant headaches. 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 Current Outpatient Prescriptions Medication Sig ??? EPINEPHrine (EPIPEN) 0.3 MG/0.3ML injection Inject 0.3 mLs (0.3 mg) into the muscle once as needed for anaphylaxis ??? lisinopril-hydrochlorothiazide (PRINZIDE,ZESTORETIC) 20-25 MG per tablet Take 1 tablet by mouth every morning Needs labs for more refills ??? atenolol (TENORMIN) 50 MG tablet Take 1 tablet (50 mg) by mouth daily ??? ASPIRIN 81 MG OR TABS 1 TABLET DAILY Hypertension ROS: taking medications as instructed, no medication side effects noted, no TIA's, no chest pain on exertion, no dyspnea on exertion, no swelling of ankles. New concerns: beesting. Objective: BP 136/60 Pulse 84 Temp 98.3 ??F (36.8 ??C) (Oral) Resp 20 Ht 6' 2 (1.88 m) Wt 228 lb (103.42 kg) BMI 29.27 kg/m2 SpO2 96% Appearance healthy, alert and cooperative. General exam BP noted to be well controlled today in office, S1, S2 normal, no gallop, no murmur, chest clear, no JVD, no HSM, no edema. Lab review: labs are reviewed, up to date and normal. Assessment: Hypertension improved. Plan: repeat labs ordered prior to next appointment. documented in this encounter Nursing Notes 03/20/2013 2:45 PM CDT >> ALFREDO UNDERWOOD Fri Mar 20, 2013 4:03 PM See below, state director alerted [facility] nurse that pt was recently stung by a bee and has hx of severe allergic rx, usually carries epi pen but does not have with, currently no dyspnea or dysphagia, c/oslight throat irritation, Donita administered 0.3 of epinephrine stat, RIZWANA TREJO MD alerted and saw pt Alfredo Underwood RN, BSN Message handled by Nurse Triage. >> DONITA WADE SatMar 20, 2013 2:53 PM Patient presents with: Insect Bites - 2:15 sting happened back of head Initial BP 136/60 Pulse 84 Temp 98.3 ??F (36.8 ??C) (Oral) Resp 20 Ht 6' 2 (1.88 m) Wt 228 lb (103.42 kg) BMI 29.27 kg/m2 SpO2 96%BMIHIS@ BP completed using cuff size large rt Arm Health Maintenance Updated with Patient:Yes Tobacco Verified: Yes Payor/Verify RX Benefits/Reconcile Disp Completed if allowed: Yes Family History Updated: Yes Immunizations Up to Date: yes Mychart Offered: Yes Donita Wade MA documented in this encounter Plan of Treatment Not on filedocumented as of this encounter Visit Diagnoses Diagnosis Chronic rhinitis - Primary Bee allergy status Allergy to insects and arachnids Unspecified essential hypertension documented in this encounter Care Teams Pegger Dobby Looms Relationship Specialty Start Date End Date Rizwana Trejo MD PCP - General 02/20/02 11/13/15 [address] [place] [address] documented as of this encounter
--- OUTSIDE RECORDS SUMMARY | 2022-06-04 07:29 | XMS_ITS | Encounter Summary ---
:1950 Author Organization [place] Address [facility] [address] Care Team Providers Name Role Phone Guero Hutchinson MD Primary Care Provider [phone] Reason for Visit (Routine) - Closed Specialty Diagnoses / Procedures Referred By Contact Refer red To Contact Radiology / Radiology. Diagnoses Non epic, SB ORDER_ Rh Xray Rscc Procedures XR KUB [address] [employer] [address] [place] [address] Phone: Fax: Referral ID Status Reason Start Date Expiration Date Visits Requ ested Visits Authorized [id number] Closed 11/14/2015 11/13/2016 1 1 Encounter Details Date Type Department Care Team Description 11/14/2015 [facility] [place] [address] [facility] [address] [place] [address] [phone] Social History Tobacco Use Types Packs/Day Years Used Date Smoking Tobacco: Former Cigarettes 1 Smokeless Tobacco: Never Comments: quit 09/2005 Alcohol Use Standard Drinks/Week Comments Yes 0 (1 standard drink = 0.6 oz pure alcoho l) rarely Sex Assigned at Date Recorded Not on file documented as of this encounter Medications at Time of Discharge Medication Sig Dispensed Refills Start Date End Date ASPIRIN 81 MG OR 1 TABLET DAILY 0 TABSIndications: Essential hypertension, benign atenolol (TENORMIN) 50 Take 1 tablet (50 mg) 30 tablet 11 MG tabletIndications: by mouth daily Unspecified essential hypertension EPINEPHrine (EPIPEN) 0.3 Inject 0.3 mLs (0.3 mg) 1 each 3 03/20/2013 MG/0.3ML into the muscle once as injectionIndications: needed for anaphylaxis Bee allergy status, Chronic rhinitis lisinopril-hydrochloroth Take 1 tablet by mouth 90 tablet 3 03/20/2013 iazide every morning Needs (PRINZIDE,ZESTORETIC) labs for more refills 20-25 MG per tabletIndications: Unspecified essential hypertension documented as of this encounter Plan of Treatment Not on filedocumented as of this encounter Procedures Procedure Name Priority Date/Time Associated Diagnosis Comme nts XR KUB Routine 11/14/2015 2:02 PM Kidney stones Results for this CDT procedure are i n the results section . documented in this encounter Results XR KUB (11/14/2015 2:02 PM CDT) Anatomical Region Laterality Modality Abdomen/Pelvis Computed Radiography Specimen (Source) Anatomical Location Collection Method / Collectio n Time Received Time / Laterality Volume Impressions 11/14/2015 3:58 PM CDT IMPRESSION: Faint calcific density projects over the right kidney. There is a calcification in the right si de of the pelvis which is most likely vascular. Clinical correlation re commended. No other findings. MAJOR MEHTA MD Narrative 11/14/2015 3:58 PM CDT XR KUB 11/14/2015 3:57 PM HISTORY: Calculus of kidney ? Procedure Note Major Mehta MD - 11/14/2015Formatt ing of this note might be different from the original. XR KUB 11/14/2015 3:57 PM HISTORY: Calculus of kidney IMPRESSION: Faint calcific density proje cts over the right kidney. There is a calcification in the right si de of the pelvis which is most likely vascular. Clinical correlation re commended. No other findings. MAJOR MEHTA MD Guero Hutchinson MD IMG DIAGNOSTIC IMAGING ORDER [place]AGO documented in this encounter Visit Diagnoses Diagnosis Kidney stones Calculus of kidney documented in this encounter Care Teams President Educational Institution Relationship Specialty Start Date End Date Guero Hutchinson MD PCP - General Urology 11/14/15 [address] [place] [address] documented as of this encounter
--- OUTSIDE RECORDS SUMMARY | 2022-06-04 07:30 | XMS_ITS | Encounter Summary ---
:1950 Author Organization [place] Address [facility] [place] [address] Care Team Providers Name Role Phone Boris Balderrama MD Primary Care Provider [phone] Reason for Visit [facility] Physical Therapy (Routine) - Closed Specialty Diagnoses / Procedures Referred By Contact Refer red To Contact [facility] MED [address] [place] [address] Referral ID Status Reason Start Date Expiration Date Visits Requ ested Visits Authorized LBP/FV Closed 04/11/2005 07/11/2005 12 5 Encounter Details Date Type Department Care Team Description 04/17/2005 Therapy Visit [place] [facility] Nikki Aceves iamLUMBAGO; Medicine [facility] [address] iamAC CIDENT ON INDUSTR PREMISES; Physical Therapy [facility] iamACCID FROM OVEREXERTION [address] [place], [place] [address] [phone] Social History Tobacco Use Types Packs/Day Years Used Date Smoking Tobacco: Every Day Cigarettes 1.5 Alcohol Use Standard Drinks/Week Comments Yes 0 (1 standard drink = 0.6 oz pure alcoho l) rarely Sex Assigned at Date Recorded Not on file documented as of this encounter Progress Notes Nikki Aceves - 04/17/2005 2:04 PM CDT Please refer to the daily flowsheet for treatment today. Patient failed to follow-up with treatment plan. Discharge chart. Leonora Santos - 04/17/2005 1:30 PM CDT Addended by: LEONORA SANTOS on: 05/15/2005 9:11:20 AM Modules accepted: Orders documented in this encounter Plan of Treatment Not on filedocumented as of this encounter Procedures Procedure Name Priority Date/Time Associated Diagnosis Comme nts [facility] NEUROMUSCULAR Routine 04/17/2005 2:14 PM iamLUMBAGO RE-EDUCATION CDT iamACCIDENT ON INDUSTR PREMISES iamACCID FROM OVEREXERTION [facility] ULTRASOUND THERAPY Routine 04/17/2005 2:14 PM iamLUM BAGO CDT iamACCIDENT ON INDUSTR PREMISES iamACCID FROM OVEREXERTION [facility] MECHANICAL TRACTION Routine 04/17/2005 2:14 PM iamLU MBAGO THERAPY CDT iamACCIDENT ON INDUSTR PREMISES iamACCID FROM OVEREXERTION documented in this encounter Visit Diagnoses Diagnosis iamLUMBAGO Lumbago iamACCIDENT ON INDUSTR PREMISES Place of occurrence, industrial places a nd premises iamACCID FROM OVEREXERTION Overexertion and strenuous and repetitiv e movements or loads documented in this encounter Care Teams Dietary Internship Relationship Specialty Start Date End Date Boris Balderrama MD PCP - General 02/20/02 11/13/15 [address] [place] [address] documented as of this encounter
--- OUTSIDE RECORDS SUMMARY | 2022-06-04 07:30 | XMS_ITS | Encounter Summary ---
:1950 Author Organization [place] [facility] [place] [address] Care Team Providers Name Role Phone Boris Balderrama MD Primary Care Provider Reason for Visit Reason Comments Cough laryngitis Encounter Details Date Type Department Care Team Description 06/09/2007 Office Visit [facility] Boris Balderrama ACUTE LARYNGITIS WO [facility] [place] OBSTRUCTION (Primary [address] Dx) [place] [address] [phone] Social History Tobacco Use Types Packs/Day Years Used Date Smoking Tobacco: Former Cigarettes 1.5 Comments: quit 09/2005 Alcohol Use Standard Drinks/Week Comments Yes 0 (1 standard drink = 0.6 oz pure alcoho l) rarely Sex Assigned at Date Recorded Not on file documented as of this encounter Last Filed Vital Signs Vital Sign Reading Time Taken Comments Blood Pressure 112/72 06/09/2007 2:00 PM CDT Pulse - - Temperature 36.9 ??C (98.5 ??F) 06/09/2007 2:00 PM CDT Respiratory Rate - - Oxygen Saturation - - Inhaled Oxygen Concentration - - Weight 101.6 kg (224 lb) 06/09/2007 2:00 PM CDT Height 186.7 cm (6' 1.5) 06/09/2007 2:00 PM CDT Body Mass Index 29.15 06/09/2007 2:00 PM CDT documented in this encounter Progress Notes Connie Roy - 06/09/2007 3:01 PM CDT SUBJECTIVE: Suresh is a 57 year old male presenting with laryngitis. Onset of symptoms was 4 days ago. Sx were preceded by URI Sx that started 2 weeks ago. These Sx included productive cough, sinus pressure, fever, chills, rhinorrhea. Denies ear pain, SOB, or wheezing. Course of illness is improving slowly. Treatment measures tried include rest, vicks, and robitussin, with no improvement. 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 Past Medical History Diagnosis Date ??? HYPERTENSION NOS Medications the patient reported as taking as of 06/09/2007: ATENOLOL 50 MG OR TABS^ ONE DAILY^ Disp: 30^ Rfl: 5 LISINOPRIL-HYDROCHLOROTHIAZIDE 20-25 MG OR TABS^ ONE DAILY IN THE MORNING^ Disp: 30^ Rfl: 5 EPIPEN 2-MAIK^ Use as Directed PRN^ Disp: 1^ Rfl: 0 ASPIRIN 81 MG OR TABS^ 1 TABLET DAILY^ Disp: ^ Rfl: OBJECTIVE: General appearance: alert and in no apparent distress Skin color is pink Hydration status appears adequate with normal skin turgor and moist mucous membranes. HEENT: Conjunctiva are not injected without discharge. Left TM is normal: no effusions, no erythema, and normal landmarks. Right TM is normal: no effusions, no erythema, and normal landmarks. Nasal mucosa is normal. Oropharyngeal exam is normal: no lesions, erythema, adenopathy or exudate. Neck is supple with no adenopathy CARDIAC:NORMAL - regular rate and rhythm without murmur. RESP: Normal - Clear to auscultation without rales, rhonchi, or wheezing. ABDOMEN: Abdomen soft, non-tender. BS normal. No masses, organomegaly CXR Findings: Normal- no infiltrates, effusions, pneumothoraces, cardiomegaly or masses ASSESSMENT: Laryngitis PLAN: Cool mist vaporizer Follow up in 3 months. documented in this encounter Nursing Notes 06/09/2007 2:00 PM CDT >> LALI HOLLEY 06/09/2007 2:34 pm Patient presents with: Cough - laryngitis Initial BP 112/72 Temp (Src) 98.5 (Oral) Ht 6' 1.5 (1.87m) Wt 224 lbs (101.6kg) Body mass index is 29.15 kg/(m^2).. BP completed using cuff size large Lali Holley CMA documented in this encounter Plan of Treatment Not on filedocumented as of this encounter Visit Diagnoses Diagnosis Acute laryngitis, without mention of obs truction - Primary documented in this encounter Care Teams Clinical Documentation Improvement Specialist Relationship Specialty Start Date End Date Boris Balderrama MD PCP - General 02/20/02 11/13/15 [address] [place] [address] documented as of this encounter
--- OUTSIDE RECORDS SUMMARY | 2022-06-04 07:30 | XMS_ITS | Encounter Summary ---
:1950 Author Organization [place] Address [facility] [place] [address] Care Team Providers Name Role Phone Boris Balderrama MD Primary Care Provider Reason for Referral Consultation - Closed Specialty Diagnoses / Procedures Referred By Contact Refer red To Contact Diagnoses Benign neoplasm of colon Boris Balderrama [place] MD GASTROENTEROLOGY-[address] [place] [address] Phone: Fax: Referral ID Status Reason Start Date Expiration Date Visits Requ ested Visits Authorized [id number] Closed 05/28/2007 08/11/2011 1 1 Reason for Visit Reason Comments Recheck Medication and refills RECHECK due for repeat colonoscopy Encounter Details Date Type Department Care Team Description 05/28/2007 Office Visit [facility] Boris Balderrama HYPERT ENSION NOS; Clinic [place] MD Kash INSECT BITE TRUNK; [address] [facility] [id number] [place] [address] BENIGN [place] [address] [phone] Social History Tobacco Use Types Packs/Day Years Used Date Smoking Tobacco: Former Cigarettes 1.5 Comments: quit 09/2005 Alcohol Use Standard Drinks/Week Comments Yes 0 (1 standard drink = 0.6 oz pure alcoho l) rarely Sex Assigned at Date Recorded Not on file documented as of this encounter Last Filed Vital Signs Vital Sign Reading Time Taken Comments Blood Pressure 118/82 05/28/2007 4:30 PM CDT Pulse - - Temperature - - Respiratory Rate - - Oxygen Saturation - - Inhaled Oxygen Concentration - - Weight 102.1 kg (225 lb) 05/28/2007 4:30 PM CDT Height 190.5 cm (6' 3) 05/28/2007 4:30 PM CDT Body Mass Index 28.12 05/28/2007 4:30 PM CDT documented in this encounter Progress Notes Boris Balderrama - 05/31/2007 3:40 PM CDT SUBJECTIVE: CC: Suresh Martinez is a 57 year old male who presents for follow up of colon polyps, bp and issues with non-infected bug bite HPI: discussed allergy management, epi pen renewed PROBLEM LIST: Patient Active Problem List Diagnoses Code ??? ALLERGY, UNSPECIFIED 995.3 ??? ALLERGIC RHINITIS NOS 477.9 ??? HYPERTENSION NOS 401.9 ??? BENIGN NEOPLASM LG BOWEL 211.3 PAST MEDICAL HISTORY: Past Medical History Diagnosis Date ??? HYPERTENSION NOS PAST SURGICAL HISTORY: No past surgical history on file. CURRENT MEDICATIONS: Current outpatient prescriptions Medication Sig ??? ATENOLOL 50 MG OR TABS ONE DAILY ??? LISINOPRIL-HYDROCHLOROTHIAZIDE 20-25 MG OR TABS ONE DAILY IN THE MORNING ??? EPIPEN 2-MAIK Use as Directed PRN ??? ASPIRIN 81 MG OR TABS 1 TABLET DAILY FAMILY HISTORY: Family History Problem Relation ??? Cancer Mother HEALTH MAINTENANCE: REVIEW OF OUTSIDE RECORDS: NO REVIEW OF SYSTEMS: C: NEGATIVE for fever, chills, change in weight I: NEGATIVE for worrisome rashes, moles or lesions E/M: NEGATIVE for ear, mouth and throat problems R: NEGATIVE for significant cough or SOB CV: NEGATIVE for chest pain, palpitations or peripheral edema GI: NEGATIVE for nausea, abdominal pain, heartburn, or change in bowel habits : NEGATIVE for frequency, dysuria, or hematuria EXAM: BP 118/82 Ht 6' 3 (1.91m) Wt 225 lbs (102.1kg) GENERAL APPEARANCE: healthy, alert and no distress EXAM: GENERAL APPEARANCE: healthy, alert and no distress EYES: EOMI, fundi benign- PERRL HENT: ear canals and TM's normal and nose and mouth without ulcers or lesions RESP: lungs clear to auscultation - no rales, rhonchi or wheezes CV: regular rates and rhythm, normal S1 S2, no S3 or S4 and no murmur, click or rub - ABDOMEN: soft, nontender, no HSM or masses and bowel sounds normal ASSESSMENT/PLAN Encounter Diagnoses Code Name Primary? Qualifier ??? 401.9 HYPERTENSION NOS ??? 911.4 INSECT BITE TRUNK ??? 211.3 BENIGN NEOPLASM LG BOWEL Colonoscopy, allergy check I have discussed with patient the risks, benefits, medications, treatment options and modalities. I have instructed the patient to call or schedule a follow-up appointment if any problems or failureto improve. documented in this encounter Nursing Notes 05/28/2007 4:30 PM CDT >> RAYMUNDO DAVILA 05/28/2007 4:29 pm Patient presents with: Recheck Medication - and refills RECHECK - due for repeat colonoscopy Initial BP 118/82 Ht 6' 3 (1.91m) Wt 225 lbs (102.1kg) Body mass index is 28.12 kg/(m^2).. BP completed using cuff size large-r Eric Davila CMA documented in this encounter Plan of Treatment Not on filedocumented as of this encounter Procedures Procedure Name Priority Date/Time Associated Diagnosis Comme nts HCL BASIC METABOLIC Routine 05/28/2007 4:58 PM Hypertension No s Results for this PANEL CDT procedure are i n the results section. documented in this encounter Results (ABNORMAL) A.M.A. BASIC METABOLIC PANEL (05/28/2007 4:58 PM CDT) P athologist Signature Sodium 144 133 - 144 [facility] mmol/L [facility] Potassium 4.0 3.4 - 5.3 [facility] mmol/L [facility] Chloride 100 94 - 109 [facility] mmol/L [facility] Carbon Dioxide 29 20 - 32 [facility] mmol/L [facility] Anion Gap 15 6 - 17 [facility] mmol/L [facility] Glucose 101 (H) 60 - 99 [place] mg/dL [facility] Urea Nitrogen 16 7 - 30 [place] mg/dL [facility] Creatinine 1.11 0.80 - [place] 1.50 mg/dL [facility] GFR Estimate 73 >60 [place] mL/min/1.7 [facility] m2 LAB GFR Estimate If 88 >60 [place] Black mL/min/1.7 [facility] m2 LAB Calcium 9.3 8.5 - 10.4 [place] mg/dL [facility] Specimen Anatomical Collection Method Collection Time Receive d Time (Source) Location / / Volume Laterality 05/28/2007 4:58 PM 5:00 CDT PM CDT Boris Balderrama MD LABORATORY Performing Organization Address City/State/ZIP Code Phon e Number [facility] [address] [place] [address] [facility] documented in this encounter Visit Diagnoses Diagnosis Unspecified essential hypertension Trunk, insect bite, nonvenomous, without mention of infection(911.4) Trunk, insect bite, nonvenomous, without mention of infection Benign neoplasm of colon documented in this encounter Care Teams Live Hanger Relationship Specialty Start Date End Date Boris Balderrama MD PCP - General 02/20/02 11/13/15 [address] [place] [address] documented as of this encounter
--- OUTSIDE RECORDS SUMMARY | 2022-06-04 07:30 | XMS_ITS | Encounter Summary ---
:1950 Author Organization [place] Address [address] [place] [address]. [place] [address] Care Team Providers Name Role Phone Boris Balderrama MD Primary Care Provider [phone] Reason for Visit Reason Comments Insect Bites bee sting - allergic reactio n Refill Request Encounter Details Date Type Department Care Team Description 12/18/2004 Office Visit [facility] Boris Balderrama ALLERG IC RHINITIS NOS; [facility] [place] Hew[place] MD INSECT BITE TRUNK [address] [place] [address] [phone] Social History Tobacco Use Types Packs/Day Years Used Date Smoking Tobacco: Every Day Cigarettes 1.5 Alcohol Use Standard Drinks/Week Comments Yes 0 (1 standard drink = 0.6 oz pure alcoho l) rarely Sex Assigned at Date Recorded Not on file documented as of this encounter Last Filed Vital Signs Vital Sign Reading Time Taken Comments Blood Pressure 168/102 12/18/2004 9:45 AM CDT Pulse - - Temperature 36.7 ??C (98 ??F) 12/18/2004 9:45 AM CDT Respiratory Rate - - Oxygen Saturation - - Inhaled Oxygen Concentration - - Weight - - Height - - Body Mass Index - - documented in this encounter Progress Notes Boris Balderrama - 12/18/2004 9:31 AM CDT Suresh is a 54 year old male who presents for follow up of: bee sting on posterior trunk with sense of wheeze, past hx anaphylaxis, no mucosal edema, settling a little now:epi given and observation:rnew epipen for home Discussed the role of indoor and outdoor allergens in symptom occurrance and control and the interplay with Sinus disease and Lower Respiratory Diseases. Avoidance, manipulation and counteracting medications were discussed. Nasal steroid, non-sedating antihistamines. Leukotriene antagonists and systemic steroids where appropriate with disclosure of side effect profile of suggested meds. The role for desensitization and availability of Allergy Consult for failure to progress noted. There is no problem list on file for this patient. Previous Medical History: None on file There is no previous surgical history on file. Current outpatient prescriptions: EPINEPHRINE HCL (ANAPHYLAXIS) 1:1000 IM ERWIN 1 TIME ONLY EPIPEN 2-MAIK Use as Directed PRN ATENOLOL 25 MG OR TABS 1/2 TABLET DAILY EPIPEN 1:1000 IM ERWIN 1 TIME ONLY Pcn (penicillins) Bee Review of Systems: CONSTITUTIONAL:NEGATIVE for fever, chills, change in weight INTEGUMENTARY/SKIN: NEGATIVE for worrisome rashes, moles or lesions RESP:NEGATIVE for significant cough or SOB CV: NEGATIVE for chest pain, palpitations or peripheral edema GI: NEGATIVE for nausea, abdominal pain, heartburn, or change in bowel habits Examination: GENERAL APPEARANCE: healthy, alert, no distress EYES: Eyes grossly normal to inspection, fundi benign-no diabetic or hypertensive changes seen, PERRL RESP: lungs clear to auscultation - no rales, rhonchi or wheezes CV: regular rates and rhythm, normal S1 S2, no S3 or S4, no murmur, click or rub, no irregular beats ABDOMEN: soft, nontender, without hepatosplenomegaly or masses, bowel sounds normal ASSESSMENT: 477.9 ALLERGIC RHINITIS NOS 911.4 INSECT BITE TRUNK PLAN: epinephrine documented in this encounter Nursing Notes 12/18/2004 9:45 AM CDT >> LALI HOLLEY 12/18/2004 9:15 am Suresh Freitas Ronyabenarell presents for allergic reaction - bee sting and refill request. Initial BP 168/102 Temp (Src) 98 (Oral) Estimated Body Mass Index is 27.80 kg/(m^2) as calculated from: Height of 6' 0 (1.829m) as of 11/17/04 Weight of 205 lbs (92.987 kg) as of 11/17/04 . BP completed using cuff size: large. Lali Holley CMA documented in this encounter Plan of Treatment Not on filedocumented as of this encounter Visit Diagnoses Diagnosis Allergic rhinitis, cause unspecified Trunk, insect bite, nonvenomous, without mention of infection(911.4) Trunk, insect bite, nonvenomous, without mention of infection documented in this encounter Care Teams Bologna Maker Relationship Specialty Start Date End Date Boris Balderrama MD PCP - General 02/20/02 11/13/15 [address] [place] [address] documented as of this encounter
--- OUTSIDE RECORDS SUMMARY | 2022-06-04 07:30 | XMS_ITS | Encounter Summary ---
:1950 Author Organization [place] Address [facility] [place] [address] Care Team Providers Name Role Phone Boris Balderrama MD Primary Care Provider Reason for Visit Reason Onset Date Comments Refill Request 03/16/2011 lisinopril-hctz Encounter Details Date Type Department Care Team Description 03/16/[address] [facility] Boris Balderrama Refill Request [facility] [place] MD (lisinopril-hctz) [address] [place] [address] [phone] (Wo rk) Social History Tobacco Use Types Packs/Day Years Used Date Smoking Tobacco: Former Cigarettes 1.5 Comments: quit 09/2005 Alcohol Use Standard Drinks/Week Comments Yes 0 (1 standard drink = 0.6 oz pure alcoho l) rarely Sex Assigned at Date Recorded Not on file documented as of this encounter Miscellaneous Notes Telephone Encounter - Yessi Navarro - 03/16/2011 11:11 AM CDT Last office visit: Reason for visit: htn BP Readings from Last 2 Encounters: 03/28/10 138/80 03/09/09 180/88 CR 0.90 03/28/2010 POTASSIUM 4.3 03/28/2010 Medication APPROVED per standing orders LETTER SENT Yessi Navarro RN Telephone Encounter - Reilly Springer - 03/16/2011 10:48 AM CDT Lisinopril-hctz 20-25 last filled quantity #30 on 12/18/2010 at [facility] documented in this encounter Plan of Treatment Not on filedocumented as of this encounter Visit Diagnoses Diagnosis Unspecified essential hypertension - Arianne alvarado documented in this encounter Care Teams Wet Chemistry Analyst Relationship Specialty Start Date End Date Boris Balderrama MD PCP - General 02/20/02 11/13/15 [address] [place] [address] documented as of this encounter
--- OUTSIDE RECORDS SUMMARY | 2022-06-04 07:30 | XMS_ITS | Encounter Summary ---
:1950 Author Organization [place] Address [facility] [place] [address] Care Team Providers Name Role Phone Boris Balderrama MD Primary Care Provider Encounter Details Date Type Department Care Team Description 12/27/2004 Orders Only [facility] Boris Balderrama SIS NOT YET Clinic [place]ucho Hewitt MD DEFINED (Primary Dx) [address] [place] [address] [phone] Social History Tobacco Use Types Packs/Day Years Used Date Smoking Tobacco: Every Day Cigarettes 1.5 Alcohol Use Standard Drinks/Week Comments Yes 0 (1 standard drink = 0.6 oz pure alcoho l) rarely Sex Assigned at Date Recorded Not on file documented as of this encounter Progress Notes Montse Abad - 02/17/2007 9:30 AM CDT Addended by: MONTSE ABAD on: 02/17/2007 9:30:03 AM Modules accepted: Orders documented in this encounter Plan of Treatment Not on filedocumented as of this encounter Procedures Procedure Name Priority Date/Time Associated Diagnosis Comme nts COLONOSCOPY Routine 12/27/2004 DIAGNOSIS NOT YET DEFINED CL AFF SURGICAL PATHOLOGY Routine 12/27/2004 DIAGNOSIS NOT Y ET DEFINED documented in this encounter Results COLONOSCOPY (12/27/2004) Narrative This result has an attachment that is no t available. Boris Balderrama MD PROCEDURES SURGICAL PATHOLOGY (12/27/2004) Specimen (Source) Anatomical Location Collection Method / Collectio n Time Received Time / Laterality Volume 12/27/2004 Narrative This result has an attachment that is no t available. Boris Balderrama MD LABORATORY Performing Organization Address City/State/ZIP Code Phon e Number [facility] documented in this encounter Visit Diagnoses Diagnosis DIAGNOSIS NOT YET DEFINED - Primary documented in this encounter Care Teams Environmental Monitoring Technician Relationship Specialty Start Date End Date Boris Balderrama MD PCP - General 02/20/02 11/13/15 [address] [place] [address] documented as of this encounter
--- OUTSIDE RECORDS SUMMARY | 2022-06-04 07:30 | XMS_ITS | Encounter Summary ---
:1950 Author Organization [place] Address [address] [facility] [place] [address] Care Team Providers Name Role Phone Boris Balderrama MD Primary Care Provider [phone] Reason for Visit Reason Comments RECHECK Renew Roxicodone and check b ack. Encounter Details Date Type Department Care Team Description 12/04/2012 Office Visit [facility] Boris Balderrama HYPERT ENSION NOS (Primary Dx); Clinic Kindra Hewitt MD Well adult exam; [address] [address] [facility] ALLERGIC RHINITIS NOS; [place], [place] Back mu scle spasm; [id number] Unspecified essential hypertension [phone] Social History Tobacco Use Types Packs/Day Years Used Date Smoking Tobacco: Former Cigarettes 1 Smokeless Tobacco: Never Comments: quit 09/2005 Alcohol Use Standard Drinks/Week Comments Yes 0 (1 standard drink = 0.6 oz pure alcoho l) rarely Sex Assigned at Date Recorded Not on file documented as of this encounter Last Filed Vital Signs Vital Sign Reading Time Taken Comments Blood Pressure 120/80 12/04/2012 8:58 AM CDT Pulse 60 12/04/2012 8:58 AM CDT Temperature 36.4 ??C (97.6 ??F) 12/04/2012 8:58 AM CDT Respiratory Rate 16 12/04/2012 8:58 AM CDT Oxygen Saturation - - Inhaled Oxygen Concentration - - Weight 105.2 kg (232 lb) 12/04/2012 8:58 AM CDT Height - - Body Mass Index 29.79 11/24/2012 8:49 AM CDT documented in this encounter Progress Notes Boris Balderrama MD - 12/04/2012 9:15 AM CDT Subjective: Suresh Martinez is a 62 year old male with hypertension. For annual exam, bp labs , new issues with back Current Outpatient Prescriptions Medication Sig ??? oxyCODONE (ROXICODONE) 5 MG immediate release tablet Take 1-2 tablets by mouth every 6 hours as needed for pain. ??? diazepam (VALIUM) 5 MG tablet Take 1 tablet by mouth every 12 hours as needed (muscle spasm). ??? atenolol (TENORMIN) 50 MG tablet Take 1 tablet by mouth daily. ??? lisinopril-hydrochlorothiazide (PRINZIDE,ZESTORETIC) 20-25 MG per tablet Take 1 tablet by mouth every morning. Needs labs for more refills ??? ASPIRIN 81 MG OR TABS 1 TABLET DAILY Hypertension ROS: taking medications as instructed, no medication side effects noted, no TIA's, no chest pain on exertion, no dyspnea on exertion, no swelling of ankles. New concerns: has had some back pain flareup, no specific trauma. Objective: BP 120/80 Pulse 60 Temp 97.6 ??F (36.4 ??C) (Oral) Resp 16 Wt 232 lb (105.235 kg) Appearance healthy, alert, mild distress and cooperative. General exam BP noted to be well controlled today in office, S1, S2 normal, no gallop, no murmur, chest clear, no JVD, no HSM, no edema. Lab review: labs are reviewed, up to date and normal. Assessment: Hypertension . Plan: orders and follow up as documented in [facility] SUBJECTIVE: CC:well adult HPI: back acting up, HAS QUIT SMOKING AND feels tremendous, hopes to retire in a year or two, no soboe, works at [employer] in [employer], PROBLEM LIST: Patient Active Problem List Diagnosis ??? ALLERGY, UNSPECIFIED ??? ALLERGIC RHINITIS NOS ??? HYPERTENSION NOS ??? BENIGN NEOPLASM LG BOWEL ??? CARDIOVASCULAR SCREENING; LDL GOAL LESS THAN 130 ??? Advanced directives, counseling/discussion ? ? Hypertension goal BP (blood pressure) < 140/90 PAST MEDICAL HISTORY: Past Medical History Diagnosis Date ??? Unspecified essential hypertension PAST SURGICAL HISTORY: History reviewed. No pertinent past surgical history. CURRENT MEDICATIONS: Current Outpatient Prescriptions Medication Sig ??? lisinopril-hydrochlorothiazide (PRINZIDE,ZESTORETIC) 20-25 MG per tablet Take 1 tablet by mouth every morning. Needs labs for more refills ??? oxyCODONE (ROXICODONE) 5 MG immediate release tablet Take 1-2 tablets by mouth every 6 hours as needed for pain. ??? diazepam (VALIUM) 5 MG tablet Take 1 tablet by mouth every 12 hours as needed (muscle spasm). ??? atenolol (TENORMIN) 50 MG tablet Take 1 tablet by mouth daily. ??? ASPIRIN 81 MG OR TABS 1 TABLET DAILY FAMILY HISTORY: Family History Problem Relation Age of Onset ??? Cancer Mother HEALTH MAINTENANCE: REVIEW OF OUTSIDE RECORDS: NO REVIEW OF SYSTEMS: C: NEGATIVE for fever, chills INTEGUMENTARY/SKIN: irritated elzbieta keratosis on back of neck in hair area, removal vs observe E: NEGATIVE for vision changes E/M: NEGATIVE for ear, mouth and throat problems R: NEGATIVE for significant cough or SOB CV: NEGATIVE for chest pain, palpitations GI: NEGATIVE for nausea, abdominal pain, heartburn, or change in bowel habits : NEGATIVE for frequency, dysuria, or hematuria M: NEGATIVE for significant arthralgias or myalgia N: NEGATIVE for weakness, dizziness or paresthesias or headache NVS:no headache or balance issus INTEG:no moles or new rashes LYMPH:no nodes or night sweats EXAM: BP 120/80 Pulse 60 Temp 97.6 ??F (36.4 ??C) (Oral) Resp 16 Wt 232 lb (105.235 kg) GENERAL APPEARANCE: healthy, alert and no distress EXAM: GENERAL APPEARANCE: healthy, alert and no distress EYES: EOMI, PERRL HENT: ear canals and TM's normal and nose and mouth without ulcers or lesions NECK: no adenopathy, no asymmetry, masses, or scars and thyroid normal to palpation RESP: lungs clear to auscultation - no rales, rhonchi or wheezes CV: regular rates and rhythm, normal S1 S2, no S3 or S4 and no murmur, click or rub - ABDOMEN: soft, nontender, no HSM or masses and bowel sounds normal Rectal exam: prostate symmetric w/o nodularity, no masses palpated MS: extremities normal- no gross deformities noted, no evidence of inflammation in joints, FROM in all extremities. SKIN: no suspicious lesions or rashes BACK:no tenderness or pain on straight let raise DX WELL ADULT ASSESSMENT/PLAN 1. HYPERTENSION NOS 2. Well adult exam 3. ALLERGIC RHINITIS NOS 4. Back muscle spasm 5. Unspecified essential hypertension Get mri for his back on and off for five years, has radiculitis with this episode I have discussed with patient the risks, benefits, medications, treatment options and modalities. I have instructed the patient to call or schedule a follow-up appointment if any problems or failureto improve. . documented in this encounter Nursing Notes 12/04/2012 9:00 AM CDT >> ADA OCHOA [facility] Dec 04, 2012 9:03 AM Patient presents with: RECHECK - Renew Roxicodone and check back. Initial BP 120/80 Pulse 60 Temp 97.6 ??F (36.4 ??C) (Oral) Resp 16 Wt 232 lb (105.235 kg) Estimated Body mass index is 29.79 kg/(m^2) as calculated from the following: Height as of 13: 6' 2(1.88 m). Weight as of this encounter: 232 lb(105.235 kg).. BP completed using cuff size: regular Ada Jennings CMA([facility]) documented in this encounter Plan of Treatment Not on filedocumented as of this encounter Procedures Procedure Name Priority Date/Time Associated Diagnosis Comme nts PROSTATE SPECIFIC Routine 12/04/2012 9:34 Well adult exam Resu lts for this ANTIGEN SCREEN AM CDT procedure are in the results section. LIPID REFLEX TO DIRECT Routine 12/04/2012 9:34 HYPERTENSION NO S Results for this LDL PANEL AM CDT procedure are i n the results section. LDL CHOLESTEROL DIRECT Routine 12/04/2012 9:34 Re sults for this AM CDT procedure are i n the results section. COMPREHENSIVE Routine 12/04/2012 9:34 HYPERTENSION NOS Results for this METABOLIC PANEL AM CDT procedure ar e in the results section. documented in this encounter Results LDL cholesterol direct (12/04/2012 9:34 AM CDT) P athologist Signature LDL Cholesterol 113 0 - 129 [facility] Direct mg/dL [facility] Comment: Optimal: ? <100 mg/dL Near Optimal: ? 100-129 mg/dL Borderline High: ??130-159 mg/dL High: ? 160-189 mg/dL Very high: ??greater than or equal to 1 90 mg/dL Cannot estimate LDL when triglyceride e xceeds 400 mg/dL Specimen Anatomical Collection Method Collection Time Receive d Time (Source) Location / / Volume Laterality 12/04/2012 9:34 AM 201 3 9:37 CDT AM CDT Boris Balderrama MD LAB - BLOOD ORDERABLES Performing Organization Address [facility] Phon e Number [facility] [address] [place] [phone] [facility] [address] [place] [phone] PSA, screen (12/04/2012 9:34 AM CDT) athologist Signature PSA 2.06 0 - 4 ug/L [facility] Specimen Anatomical Collection Method Collection Time Receive d Time (Source) Location / / Volume Laterality Blood specimen 12/04/2012 9:34 AM 013 9:37 (specimen) CDT AM CDT Boris Balderrama MD LAB - BLOOD ORDERABLES Performing Organization Address [facility] Phon e Number [facility] [address] [place] [phone] [facility] [address] [place] [phone] (ABNORMAL) Comprehensive metabolic panel (12/04/2012 9:34 AM CDT) P athologist Signature Sodium 138 133 - 144 [facility] mmol/L [facility] Potassium 4.7 3.4 - 5.3 [facility] mmol/L [facility] Chloride 99 94 - 109 [facility] mmol/L [facility] Carbon Dioxide 26 20 - 32 [facility] mmol/L [facility] Anion Gap 12 6 - 17 [facility] mmol/L [facility] Glucose 189 (H) 60 - 99 [facility] mg/dL [facility] Urea Nitrogen 24 7 - 30 [facility] mg/dL [facility] Creatinine 1.00 0.66 - [facility] 1.25 mg/dL [facility] GFR Estimate 76 >60 [facility] mL/min/1.7 [facility] m2 LAB GFR Estimate If >90 >60 [facility] Black mL/min/1.7 [facility] m2 LAB Calcium 9.4 8.5 - 10.4 [facility] mg/dL [facility] Bilirubin Total 0.8 0.2 - 1.3 [facility] mg/dL [facility] Albumin 4.2 3.3 - 4.9 [facility] g/dL [facility] Comment: Reference range changed on 04/13. Protein Total 7.2 6.8 - 8.8 g/dL [facility] Comment: As of 07, reference range reflects plasma specimen type. Alkaline Phosphatase 58 40 - 150 U/L [facility] ALT 46 0 - 70 U/L [facility] AST 45 0 - 45 U/L [facility] Specimen Anatomical Collection Method Collection Time Receive d Time (Source) Location / / Volume Laterality Blood specimen 12/04/2012 9:34 AM 013 9:37 (specimen) CDT AM CDT Boris Balderrama MD LAB - BLOOD ORDERABLES Performing Organization Address City/State/ZIP Code Phon e Number [facility] [address] [place] [address] [facility] [address] [place] [address] (ABNORMAL) Lipid panel reflex to direct LDL (12/04/2012 9:34 AM CDT) athologist Signature Cholesterol 182 0 - 200 [facility] mg/dL CLINIC LAB Comment: LDL Cholesterol is the primary guide to therapy. The NCEP recommends further evaluation of: patients with cholesterol greater than 200 mg/dL if additional risk facto rs are present, cholesterol greater than 240 mg/dL, triglycerides greater than 1 50 mg/dL, or HDL less than 40 mg/dL. Triglycerides 407 (H) 0 - 150 mg/dL [facility] HDL Cholesterol 24 (L) 40 - 110 mg/dL [facility] LDL Cholesterol Cannot estimate LDL 0 - 129 mg/dL [facility] Calculated when triglyceride CLINIC LAB exceeds 400 mg/dL VLDL-Cholesterol Cannot estimate VLDL 0 - 30 mg/dL [facility] when triglyceride CLINIC LAB exceeds 400 mg/dL. Cholesterol/HDL Ratio 7.7 (H) 0.0 - 5.0 [facility] Specimen Anatomical Collection Method Collection Time Receive d Time (Source) Location / / Volume Laterality Blood specimen 12/04/2012 9:34 AM 013 9:37 (specimen) CDT AM CDT Boris Balderrama MD LAB - BLOOD ORDERABLES Performing Organization Address City/State/ZIP Code Phon e Number [facility] [address] [place] [address] [phone] [facility] [address] [place] [address] [phone] documented in this encounter Visit Diagnoses Diagnosis HYPERTENSION NOS - Primary Unspecified essential hypertension Well adult exam Routine general medical examination at a [facility] care facility ALLERGIC RHINITIS NOS Allergic rhinitis, cause unspecified Back muscle spasm Other symptoms referable to back documented in this encounter Care Teams Marketing Proposal Coordinator Relationship Specialty Start Date End Date Boris Balderrama MD PCP - General 02/20/02 11/13/15 [address] [place] [address] documented as of this encounter
--- OUTSIDE RECORDS SUMMARY | 2022-06-04 07:30 | XMS_ITS | Encounter Summary ---
:1950 Author Organization [place] Address [address] [place] [address]. [place] [address] Care Team Providers Name Role Phone Rizwana Trejo MD Primary Care Provider Encounter Details Date Type Department Care Team Description 11/30/2004 Telephone [facility] Rizwana Trejo [place] MD [address] [place] [address] [phone] [place] [address] (Wo rk) Social History Tobacco Use Types Packs/Day Years Used Date Smoking Tobacco: Every Day Cigarettes 1.5 Alcohol Use Standard Drinks/Week Comments Yes 0 (1 standard drink = 0.6 oz pure alcoho l) rarely Sex Assigned at Date Recorded Not on file documented as of this encounter Miscellaneous Notes Telephone Encounter - 11/30/2004 5:48 PM CDT Staff Message copied by RIZWANA TREJO on 11/30/2004 at 5:48 PM ------ Message from: CLAUDINE GIBBS Created: 11/29/2004 at 3:37 PM Regarding: LAB ORDERS PATIENT HAS SCHEDULED A LAB ONLY APPT. FOR NEXT WEEK. WE NEED LAB ORDERS PLEASE. documented in this encounter Plan of Treatment Not on filedocumented as of this encounter Visit Diagnoses Diagnosis Essential hypertension, benign - Primary documented in this encounter Care Teams Production Editor Relationship Specialty Start Date End Date Rizwana Trejo MD PCP - General 02/20/02 11/13/15 [address] [place] [address] documented as of this encounter
--- OUTSIDE RECORDS SUMMARY | 2022-06-04 07:30 | XMS_ITS | Encounter Summary ---
:1950 Author Organization [place] Address [facility] [facility] [place] [address] Care Team Providers Name Role Phone Boris Balderrama MD Primary Care Provider [phone] Reason for Visit Reason Comments Refill Request f/u meds, BP check and also requesting refill on his epi pen Encounter Details Date Type Department Care Team Description 03/09/2009 Office Visit [facility] Boris Balderrama Unspec ified [facility] Kindra Hewitt MD Hypertension (Primary [address]x) [place] [address] [phone] Social History Tobacco Use Types Packs/Day Years Used Date Smoking Tobacco: Former Cigarettes 1.5 Comments: quit 09/2005 Alcohol Use Standard Drinks/Week Comments Yes 0 (1 standard drink = 0.6 oz pure alcoho l) rarely Sex Assigned at Date Recorded Not on file documented as of this encounter Last Filed Vital Signs Vital Sign Reading Time Taken Comments Blood Pressure 180/88 03/09/2009 4:17 PM CDT Pulse 80 03/09/2009 4:17 PM CDT Temperature - - Respiratory Rate 20 03/09/2009 4:17 PM CDT Oxygen Saturation - - Inhaled Oxygen Concentration - - Weight 98.9 kg (218 lb) 03/09/2009 4:17 PM CDT Height 189.2 cm (6' 2.5) 03/09/2009 4:17 PM CDT Body Mass Index 27.62 03/09/2009 4:17 PM CDT documented in this encounter Patient Instructions Patient InstructionsBoris Balderrama - 03/09/2009 4:46 PM CDT B complex with vitimin C and antioxidants documented in this encounter Progress Notes Boris Balderrama - 03/10/2009 1:23 PM CDT Subjective: Suresh Martinez is a 59 year old male with hypertension. Current outpatient prescriptions Medication Sig ??? ATENOLOL 50 MG OR TABS ONE DAILY ??? LISINOPRIL-HYDROCHLOROTHIAZIDE 20-25 MG OR TABS ONE DAILY IN THE MORNING ??? EPIPEN 0.3 MG/0.3ML (1:1000) IM ERWIN 1 TIME ONLY ??? ASPIRIN 81 MG OR TABS 1 TABLET DAILY Hypertension ROS: taking medications as instructed, no medication side effects noted, no TIA's, no chest pain on exertion, no dyspnea on exertion, no swelling of ankles. New concerns: out of meds for a month, he understands that this is ill advised. Objective: BP 180/88 Pulse 80 Resp 20 Ht 6' 2.5 (1.892 m) Wt 218 lb (98.884 kg) Appearance healthy, alert and cooperative. General exam BP noted to be well controlled today in office, S1, S2 normal, no gallop, no murmur, chest clear, no JVD, no HSM, no edema. Lab review: labs are reviewed, up to date and normal. Assessment: Hypertension poorly controlled, loss of control due to intercurrent illness. Plan: orders and follow up as documented in [employer], reviewed diet, exercise and weight control Six week follow up for bp. documented in this encounter Nursing Notes 03/09/2009 4:00 PM CDT >> PARISA HERNADEZ SatMar 09, 2009 4:20 PM Patient presents with: Refill Request - f/u meds, BP check and also requesting refill on his epi pen IntialBP 180/88 Pulse 80 Resp 20 Ht 6' 2.5 (1.892 m) Wt 218 lb (98.884 kg) Body mass index is 27.61 kg/(m^2).. BP completed using cuff size large Health maintenance reviewed. My-chart offered--Brochure given. Parisa Hernadez/ALVIN documented in this encounter Plan of Treatment Not on filedocumented as of this encounter Visit Diagnoses Diagnosis Unspecified essential hypertension - Arianne alvarado documented in this encounter Care Teams Staff Reporter Relationship Specialty Start Date End Date Boris Balderrama MD PCP - General 02/20/02 11/13/15 [address] [place] [address] documented as of this encounter
--- OUTSIDE RECORDS SUMMARY | 2022-06-04 07:30 | XMS_ITS | Encounter Summary ---
:1950 Author Organization [place] Address [facility] [place] [address] Care Team Providers Name Role Phone Boris Balderrama MD Primary Care Provider [phone] Reason for Visit Reason Comments Physical FASTING Derm Problem lesion on back of head Encounter Details Date Type Department Care Team Description 11/23/2011 Office Visit [facility] Boris Balderrama Unspec ified essential hypertension (Primary Dx); Clinic Kindra Hewitt MD Routine medical exam; [address] [facility] [id number] [place] [address] CARDIOVASCULAR SCREENING; LDL GOAL LESS THAN 130; [place], [place] Routine general medical examination at a health care facility; [id number] BENIGN NEOPLASM LG BOWEL [phone] Social History Tobacco Use Types Packs/Day Years Used Date Smoking Tobacco: Every Day Cigarettes 1 Smokeless Tobacco: Never Comments: quit 09/2005 Alcohol Use Standard Drinks/Week Comments Yes 0 (1 standard drink = 0.6 oz pure alcoho l) rarely Sex Assigned at Date Recorded Not on file documented as of this encounter Last Filed Vital Signs Vital Sign Reading Time Taken Comments Blood Pressure 150/76 11/23/2011 8:34 AM 160/80 first reading CDT Pulse 56 11/23/2011 8:34 AM CDT Temperature 36.6 ??C (97.9 ??F) 11/23/2011 8:34 AM CDT Respiratory Rate 12 11/23/2011 8:34 AM CDT Oxygen Saturation 95% 11/23/2011 8:34 AM CDT Inhaled Oxygen - - Concentration Weight 95.3 kg (210 lb) 11/23/2011 8:34 AM CDT Height 188 cm (6' 2) 11/23/2011 8:34 AM CDT Body Mass Index 26.96 11/23/2011 8:34 AM CDT documented in this encounter Patient Instructions Patient InstructionsNancy Smiley - 11/23/2011 8:40 AM CDT PREVENTIVE HEALTH RECOMMENDATIONS: You should be tested each year for STDs (sexually transmitted diseases), if you???re at risk. Have a colonoscopy at age 50, or have a yearly FIT test (stool test). These exams will check for colon cancer. Have a cholesterol test every 5 years, or more frequently if you are at risk for high cholesterol/heart disease. Have a diabetes test (fasting glucose) every three years. If you are at risk for diabetes, you should have this test more often. Talk with your health care provider about whether or not a prostate cancer screening test (PSA) is right for you. Vaccines: Get a flu shot each year. Get a tetanus shot every 10 years. Eat at least 5 servings of fruits and vegetables daily. Eat whole-grain bread, whole-wheat pasta and brown rice instead of white grains and rice. For bone health: Eat calcium-rich foods or take calcium pills (500 to 600 mg) twice a day with food.Also take vitamin D (1000 IUs) each day. Exercise for at least 150 minutes a week (an average of 30 minutes a day, 5 days of the week). This will help you control your weight and prevent disease. Limit alcohol to one drink per day. No smoking. Wear sunscreen to prevent skin cancer. See your dentist twice a year for an exam and cleaning. See your eye doctor ever 1 to 2 years. documented in this encounter Progress Notes Boris Balderrama MD - 11/23/2011 8:40 AM CDT SUBJECTIVE: CC: Suresh Martinez is an 61 year old male who presents for preventative health visit. Besides routine health maintenance, he has no other health concerns today . Healthy Habits: Do you get at least three servings of dairy daily (milk, cheese, yogurt, etc.)? 1-2 Outside of work or daily activities, how many days per week do you exercise for 30 minutes or longer? 7 Dietary Guidelines for Americans, 2010 USDA's MyPlate Estimated Body mass index is 26.96 kg/(m^2) as calculated from the following: Height as of this encounter: 6' 2(1.88 m). Weight as of this encounter: 210 lb(95.255 kg). Have you had an eye exam in the past two years? no Do you see a dentist twice per year? yes DID NOT TAKE HIS BP MEDS THIS AM Staff Signature Nancy Smiley CMA Today's PHQ-2 Score: 0 Abuse: Current or Past(Physical, Sexual or Emotional)- No Do you feel safe in your environment - Yes History Substance Use Topics ??? Smoking status: Current Everyday Smoker -- 1.0 packs/day Types: Cigarettes ??? Smokeless tobacco: Never Used Comment: quit 09/2005 ??? Alcohol Use: Yes rarely The patient does not drink >3 drinks per day nor >7 drinks per week. Last PSA: No results found for this basename: psa Last lipid profile: Total Cholesterol: Cholesterol Date Value Range Status 02/18/2008 208* 0-200 (mg/dL) Final LDL Cholesterol is the primary guide to therapy: LDL-cholesterol goal in high risk patients is <100 mg/dL and in very high risk patients is <70 mg/dL. The NCEP recommends further evaluation of: patients with cholesterol <200 mg/dL if additional risk factors are present, cholesterol >240 mg/dL, triglycerides >150 mg/dL, or HDL <40 mg/dL. LDL Cholesterol: LDL Cholesterol Calculated Date Value Range Status 02/18/2008 108 0-129 (mg/dL) Final LDL Cholesterol is the primary guide to therapy: LDL-cholesterol goal in high risk patients is <100 mg/dL and in very high risk patients is <70 mg/dL. HDL Cholesterol: HDL Cholesterol Date Value Range Status 02/18/2008 29* 40-110 (mg/dL) Final Reviewed orders with patient. Reviewed health maintenance and updated orders accordingly - Yes Staff Signature Nancy Smiley CMA All Histories reviewed and updated in [facility]. Feels well, rash onhis head folliculitis Still working to quit smoking ROS: C: NEGATIVE for fever, chills, change in weight I: NEGATIVE for worrisome rashes, moles or lesions E: NEGATIVE for vision changes or irritation ENT: NEGATIVE for ear, mouth and throat problems R: NEGATIVE for significant cough or SOB CV: NEGATIVE for chest pain, palpitations or peripheral edema GI: NEGATIVE for nausea, abdominal pain, heartburn, or change in bowel habits male: negative for dysuria, hematuria, decreased urinary stream, erectile dysfunction, urethral discharge M: NEGATIVE for significant arthralgias or myalgia N: NEGATIVE for weakness, dizziness or paresthesias E: NEGATIVE for temperature intolerance, skin/hair changes H: NEGATIVE for bleeding problems P: NEGATIVE for changes in mood or affect OBJECTIVE: BP 150/76 Pulse 56 Temp(Src) 97.9 ??F (36.6 ??C) (Oral) Resp 12 Ht 6' 2 (1.88 m) Wt 210 lb (95.255 kg) BMI 26.96 kg/m2 SpO2 95% GENERAL APPEARANCE: healthy, alert and no distress EYES: Eyes grossly normal to inspection, PERRL and conjunctivae and sclerae normal HENT: ear canals and TM's normal, nose and mouth without ulcers or lesions, oropharynx clear and oral mucous membranes moist NECK: no adenopathy, no asymmetry, masses, or scars and thyroid normal to palpation RESP: lungs clear to auscultation - no rales, rhonchi or wheezes CV: regular rates and rhythm, normal S1 S2, no S3 or S4, no murmur, click or rub, no peripheral edema and peripheral pulses strong ABDOMEN: soft, nontender, no hepatosplenomegaly, no masses and bowel sounds normal (male): normal male genitalia without lesions or urethral discharge, no hernia RECTAL: normal sphincter tone, no rectal masses, prostate of normal size, smooth, nontender without nodules or masses MS: no musculoskeletal defects are noted and gait is age appropriate without ataxia SKIN: no suspicious lesions or rashes NEURO: Normal strength and tone, sensory exam grossly normal, mentation intact and speech normal PSYCH: mentation appears normal and affect normal/bright ATP III Guidelines FRAX Risk Assessment ICSI Preventive Guidelines ASSESSMENT/PLAN: 1. Unspecified essential hypertension (401.9) lisinopril-hydrochlorothiazide (PRINZIDE,ZESTORETIC) 20-25 MG per tablet, Microalbumin quantitative random urine 2. Routine medical exam (V70.0B) Comprehensive metabolic panel, Prostate spec antigen screen 3. CARDIOVASCULAR SCREENING; LDL GOAL LESS THAN 130 (V81.2MR) Lipid panel reflex to direct LDL 4. Routine general medical examination at a health care facility (V70.0) Counseling: regular exercise weight management reports that he has been smoking Cigarettes. He has been smoking about 1 pack per day. He has neverused smokeless tobacco. Tobacco Cessation Action Plan: Information offered: Patient not interested at this time Body mass index is 26.96 kg/(m^2). documented in this encounter Nursing Notes 11/23/2011 8:45 AM CDT >> NANCY SMILEY SatNov 23, 2011 8:40 AM Patient presents with: Physical - FASTING Derm Problem - lesion on back of head Initial BP 150/76 Pulse 56 Temp(Src) 97.9 ??F (36.6 ??C) (Oral) Resp 12 Ht 6' 2 (1.88 m) Wt 210 lb (95.255 kg) BMI 26.96 kg/m2 SpO2 95% Estimated Body mass index is 26.96 kg/(m^2) as calculated from the following: Height as of this encounter: 6' 2(1.88 m). Weight as of this encounter: 210 lb(95.255 kg). BP completed using cuff size large r arm Health Maintenance Updated with Patient: Yes Nancy Smiley CMA documented in this encounter Plan of Treatment Not on filedocumented as of this encounter Procedures Procedure Name Priority Date/Time Associated Diagnosis Comme nts ALBUMIN RANDOM URINE Routine 11/23/2011 9:19 Unspecified essen tial Results for this QUANTITATIVE AM CDT hypertension procedure are i n the results section. PROSTATE SPECIFIC Routine 11/23/2011 9:18 Routine medical exam Results for this ANTIGEN SCREEN AM CDT procedure are in the results section. LIPID REFLEX TO Routine 11/23/2011 9:18 CARDIOVASCULAR Results for this DIRECT LDL PANEL AM CDT SCREENING; LDL GOAL proc edure are in LESS THAN 130 the results section. COMPREHENSIVE Routine 11/23/2011 9:18 Routine medical exam Res ults for this METABOLIC PANEL AM CDT procedure ar e in the results section. CBC WITH PLATELETS Routine 11/23/2011 9:18 CARDIOVASCULAR Resu lts for this AM CDT SCREENING; LDL GOAL procedur e are in LESS THAN 130 the results section. documented in this encounter Results Microalbumin quantitative random urine (11/23/2011 9:19 AM CDT) P athologist Signature Creatinine 161 mg/dL [facility] Urine [facility] Albumin Urine 10 mg/L [facility] mg/L [facility] Albumin Urine 6.27 0 - 17 [facility] mg/g Cr mg/g Cr [facility] Specimen Anatomical Collection Method Collection Time Receive d Time (Source) Location / / Volume Laterality Urine specimen 11/23/2011 9:19 AM 012 9:20 (specimen) CDT AM CDT Boris Balderrama MD LAB - URINE ORDERABLES Performing Organization Address City/[facility]/[place] Code Phon e Number [facility] [address] [place] [address] [facility] CBC with platelets (11/23/2011 9:18 AM CDT) P athologist Signature WBC 10.3 4.0 - 11.0 [place] [facility] 10e9/L [facility] RBC Count 5.26 4.4 - 5.9 [place] [facility] 10e12/L [facility] Hemoglobin 15.6 13.3 - [place] 17.7 g/dL [facility] Hematocrit 45.3 40.0 - [place] 53.0 % [facility] MCV 86 78 - 100 [facility] MCH 29.7 26.5 - [place] 33.0 pg [facility] MCHC 34.4 31.5 - [place] 36.5 g/dL [facility] RDW 12.8 10.0 - [place] 15.0 % [facility] Platelet Count 222 150 - 450 [place] 10e9/L [facility] Specimen Anatomical Collection Method Collection Time Receive d Time (Source) Location / / Volume Laterality Blood specimen 11/23/2011 9:18 AM 012 9:20 (specimen) CDT AM CDT Boris Balderrama MD LAB - BLOOD ORDERABLES Performing Organization Address City/[facility]/ZIP Code Phon e Number [facility] [address] [place] [address] [facility] Prostate spec antigen screen (11/23/2011 9:18 AM CDT) athologist Signature PSA 1.89 0 - 4 ug/L [facility] Specimen Anatomical Collection Method Collection Time Receive d Time (Source) Location / / Volume Laterality Blood specimen 11/23/2011 9:18 AM 012 9:20 (specimen) CDT AM CDT Boris Balderrama MD LAB - BLOOD ORDERABLES Performing Organization Address City/State/ZIP Code Phon e Number [facility] [address] [place] [address] [facility] LAB (ABNORMAL) Lipid panel reflex to direct LDL (11/23/2011 9:18 AM CDT) athologist Signature Cholesterol 199 0 - 200 [facility] mg/dL CLINIC LAB Comment: LDL Cholesterol is the primary guide to therapy. The NCEP recommends further evaluation of: patients with cholesterol greater than 200 mg/dL if additional risk facto rs are present, cholesterol greater than 240 mg/dL, triglycerides greater than 1 50 mg/dL, or HDL less than 40 mg/dL. Triglycerides 317 (H) 0 - 150 mg/dL [facility] LAB HDL Cholesterol 26 (L) 40 - 110 mg/dL [facility] LDL Cholesterol Calculated 110 0 - 129 mg/dL [facility] Comment: LDL Cholesterol is the primary guide to therapy: LDL-cholesterol goal in high risk patients is <100 mg/dL and in very high risk patients is <70 mg/dL. VLDL-Cholesterol 63 (H) 0 - 30 mg/dL [facility] LAB Cholesterol/HDL Ratio 7.6 (H) 0.0 - 5.0 [facility] LAB Specimen Anatomical Collection Method Collection Time Receive d Time (Source) Location / / Volume Laterality Blood specimen 11/23/2011 9:18 AM 012 9:20 (specimen) CDT AM CDT Boris Balderrama MD LAB - BLOOD ORDERABLES Performing Organization Address City/State/ZIP Code Phon e Number [address] [place] [address] [phone] [facility] (ABNORMAL) Comprehensive metabolic panel (11/23/2011 9:18 AM CDT) athologist Signature Sodium 139 133 - 144 [place] mmol/L [facility] Potassium 4.5 3.4 - 5.3 [place] mmol/L [facility] Chloride 101 94 - 109 [place] mmol/L [facility] Carbon Dioxide 24 20 - 32 [place] mmol/L [facility] Anion Gap 14 6 - 17 [place] mmol/L [facility] Glucose 108 (H) 60 - 99 [place] mg/dL [facility] Urea Nitrogen 24 7 - 30 [place] mg/dL [facility] Creatinine 0.92 0.66 - [place] 1.25 mg/dL [facility] GFR Estimate 84 >60 [place] mL/min/1.7 [facility] m2 LAB GFR Estimate If >90 >60 [place] mL/min/1.7 [facility] m2 LAB Calcium 9.3 8.5 - 10.4 [place] mg/dL [facility] Bilirubin Total 1.1 0.2 - 1.3 [place] mg/dL [facility] Albumin 4.4 3.3 - 4.9 [place] g/dL [facility] Comment: Reference range changed on 04/13. Protein Total 7.9 6.8 - 8.8 g/dL [facility] Comment: As of 07, reference range reflects plasma specimen type. Alkaline Phosphatase 74 40 - 150 U/L [facility] ALT 25 0 - 70 U/L [facility] CLIN IC LAB AST 33 0 - 45 U/L [facility] CLIN IC LAB Specimen Anatomical Collection Method Collection Time Receive d Time (Source) Location / / Volume Laterality Blood specimen 11/23/2011 9:18 AM 012 9:20 (specimen) CDT AM CDT Boris Balderrama MD LAB - BLOOD ORDERABLES Performing Organization Address City/State/ZIP Code Phon e Number [facility] [address] [place] [address] [phone] [facility] documented in this encounter Visit Diagnoses Diagnosis Unspecified essential hypertension - Arianne jenny Routine medical exam Routine general medical examination at a health care facility CARDIOVASCULAR SCREENING; LDL GOAL LESS THAN 130 Routine general medical examination at a health care facility BENIGN NEOPLASM LG BOWEL Benign neoplasm of colon documented in this encounter Care Teams Office Rep Relationship Specialty Start Date End Date Boris Balderrama MD PCP - General 02/20/02 11/13/15 [address] [place] [address] documented as of this encounter
--- OUTSIDE RECORDS SUMMARY | 2022-06-04 07:30 | XMS_ITS | Encounter Summary ---
:1950 Author Organization [place] Address [facility] [place] [address] Care Team Providers Name Role Phone Boris Balderrama MD Primary Care Provider [phone] Encounter Details Date Type Department Care Team Description 09/04/2006 Emergency room Miranda Andrews MD [facility] PHYSIC [facility] [address] [place], [place] [address] (Wo rk) Social History Tobacco Use Types Packs/Day Years Used Date Smoking Tobacco: Former Cigarettes 1.5 Comments: quit 09/2005 Alcohol Use Standard Drinks/Week Comments Yes 0 (1 standard drink = 0.6 oz pure alcoho l) rarely Sex Assigned at Date Recorded Not on file documented as of this encounter Progress Notes Miranda Andrews - 09/05/2006 4:23 PM GAME PROGRAMMER FINAL CHIEF COMPLAINT: Left-sided numbness. HISTORY OF PRESENT ILLNESS: Wong Molina is a 56-year-old male who presents to emergency department from his primary clinic. He states that since yesterday evening he has been having left leg and arm numbness. He states that the symptoms have persisted throughout the day. He has noted that his blood pressure has been elevated. He also had some intermittent blurred vision but states that has cleared. He denies any headaches. He denies any weakness. He does complain of some tingling to his left arm andleg as the numbness. He states he did have a twinge of chest pain which lasted a minute or 2 last evening with no recurrence. He denies any shortness of breath, palpitations, nausea, vomiting, diaphoresis. He states that he has not had similar symptoms in the past. He denies any arm or leg swelling. He is concerned because of his elevated blood pressure. He was seen at [facility] and referred into the emergency department for further evaluation. He denies any other complaints. PAST MEDICAL HISTORY: Positive for hypertension. MEDICATIONS: He is on Tenoretic an aspirin. ALLERGIES: HE HAS AN ALLERGY TO PENICILLIN. SOCIAL HISTORY: Occasional alcohol use. Denies tobacco or drug use. FAMILY HISTORY: Noncontributory. REVIEW OF SYSTEMS: As noted in the HPI. All other systems are negative. PHYSICAL EXAMINATION: GENERAL: The patient is alert and appropriate. VITAL SIGNS: Temperature 97.1, pulse 73, respiratory rate 18, blood pressure 173/97 on the right, 187/110 on the left and oxygen saturation 97% on room air. HEENT: Normocephalic and atraumatic. Eyes, pupils are equal, round, reactive to light. Extraocular movements are intact. Ears are normal. Nose normal. Throat normal. NECK: No lymphadenopathy, no bruits or masses. LUNGS: Clear to auscultation bilaterally. CARDIAC: Regular rate and rhythm. No murmurs, gallops or rubs. ABDOMEN: Normoactive bowel sounds, nontender, nondistended, soft, no masses. EXTREMITIES: No cyanosis, clubbing or edema. Good distal pulses. SKIN: Warm and dry, no rash. NEUROLOGIC: Cranial nerves II through XII are intact. Strength is 5/5 throughout. Sensation is within normal limits and gait is normal. Cerebellar function is normal. LABORATORY AND DIAGNOSTICS: EKG was obtained which revealed a normal sinus rhythm at a rate of 64, normal axis intervals, no acute ST or T-wave changes. PA and lateral chest x-ray showed no acute pulmonary disease. CBC and electrolytes were normal. BUN and creatinine were normal. Glucose was 113, troponin was less than 0.04 and myoglobin was 34. MRI of the brain with and without contrast was negative for any acute findings. EMERGENCY DEPARTMENT COURSE: An IV was started. The patient had a negative workup. I did not feel he had a GASFITTER etiology for his symptoms as I had ruled out CVA. I felt comfortable discharging the patient home. His blood pressure prior to discharge was 160/97. I did not feel at that time that I would adjust his blood pressure medications. I instructed him to follow up with his primary physician for ablood pressure check in 24-48 hours and reevaluation at that time. He was instructed to take his medications as before, follow his blood pressure follow up with PMD in 24-48 hours for blood pressure check and reevaluation. Return if worse or any change. DIAGNOSIS: Paresthesias and hypertension Electronically signed on 09/05/2006 16:22 by MIRANDA ANDREWS MD MT: ABHILASH Name: WONG MOLINA MRN: [id number] Account: [id number] : 1950 Visit Date: 09/04/2006 Document: [id number] PROGRAMMER documented in this encounter Plan of Treatment Not on filedocumented as of this encounter Visit Diagnoses Not on filedocumented in this encounter Care Teams Ada Accommodation Consultant Relationship Specialty Start Date End Date Boris Balderrama MD PCP - General 02/20/02 11/13/15 [address] [place] [address] documented as of this encounter
--- OUTSIDE RECORDS SUMMARY | 2022-06-04 07:30 | XMS_ITS | Encounter Summary ---
:1950 Author Organization [place] Address [address] [place] [address]. [place] [address] Care Team Providers Name Role Phone Boris Balderrama MD Primary Care Provider [phone] Reason for Visit Reason Comments Hypertension Recheck, needs refills Encounter Details Date Type Department Care Team Description 04/24/2006 Office Visit [facility] Boris Balderrama [facility] [place] (Primary Dx) [address] [place] [phone] Social History Tobacco Use Types Packs/Day Years Used Date Smoking Tobacco: Former Cigarettes 1.5 Comments: quit 09/2005 Alcohol Use Standard Drinks/Week Comments Yes 0 (1 standard drink = 0.6 oz pure alcoho l) rarely Sex Assigned at Date Recorded Not on file documented as of this encounter Last Filed Vital Signs Vital Sign Reading Time Taken Comments Blood Pressure 138/88 04/24/2006 9:45 AM CDT Pulse - - Temperature - - Respiratory Rate - - Oxygen Saturation - - Inhaled Oxygen Concentration - - Weight 102.3 kg (225 lb 8 oz) 04/24/2006 9:45 AM CDT Height - - Body Mass Index 28.95 12/11/2005 2:30 PM CDT documented in this encounter Progress Notes Boris Balderrama - 04/24/2006 10:22 AM CDT Subjective: Suresh Martinez is a 56 year old male with hypertension. Current outpatient prescriptions Medication Sig ??? ASPIRIN 81 MG OR TABS 1 TABLET DAILY ??? TENORETIC 50 50-25 MG OR TABS 1 TABLET DAILY ??? ATENOLOL 25 MG OR TABS one half tab daily NEEDS TO SEE DOCTOR ??? EPINEPHRINE HCL (ANAPHYLAXIS) 1 MG/ML IJ SOLN 0.2 cc given now ??? EPIPEN 2-MAIK Use as Directed PRN Hypertension ROS: taking medications as instructed, no medication side effects noted, no TIA's, no chest pain on exertion, no dyspnea on exertion, no swelling of ankles. New concerns: not at goal, improved a little by second reading, start new med tenoretic. Objective: BP 138/88 Wt 225 lbs 8.0 oz (102.3kg) Appearance healthy, alert and cooperative. General exam BP noted to be well controlled today in office, S1, S2 normal, no gallop, no murmur, chest clear, no JVD, no HSM, no edema. Lab review: labs are reviewed, up to date and normal. Assessment: Hypertension improved, needs further observation. Plan: orders and follow up as documented in EpicCare, reviewed diet, exercise and weight control, recommended sodium restriction. documented in this encounter Nursing Notes 04/24/2006 9:45 AM CDT >> SHANKAR ROSALES 04/24/2006 9:49 am Suresh Freitas Ronycurry presents for blood pressure check- needs refill on medication. Initial BP 158/88 Wt 225 lbs 8.0 oz (102.3kg) Estimated Body mass index is 28.94 kg/(m^2) as calculated from: Height of 6' 2 (1.880 m) as of 12/11/05 Weight of 225 lbs 8.0 oz (102.286 kg) as of this encounter. BP completed using cuff size: ladonna Rosales RN documented in this encounter Plan of Treatment Not on filedocumented as of this encounter Visit Diagnoses Diagnosis Essential hypertension, benign - Primary documented in this encounter Care Teams Financial Compliance Officer Relationship Specialty Start Date End Date Boris Balderrama MD PCP - General 02/20/02 11/13/15 [address] [place] [address] documented as of this encounter
--- OUTSIDE RECORDS SUMMARY | 2022-06-04 07:30 | XMS_ITS | Encounter Summary ---
:1950 Author Organization [place] Address [facility] [place] [address] Care Team Providers Name Role Phone Boris Balderrama MD Primary Care Provider Reason for Visit Reason Onset Date Comments Chronic Care Conference Provider Overview 11/01/2011 Encounter Details Date Type Department Care Team Description 11/01/2011 Telephone [facility] Boris Balderrama Chroni c Care Conference Clinic Kindra Hewitt MD Provider Overview [id number] [place] [id number] [phone] (Wo rk) Social History Tobacco Use Types Packs/Day Years Used Date Smoking Tobacco: Every Day Cigarettes 1 Smokeless Tobacco: Never Comments: quit 09/2005 Alcohol Use Standard Drinks/Week Comments Yes 0 (1 standard drink = 0.6 oz pure alcoho l) rarely Sex Assigned at Date Recorded Not on file documented as of this encounter Miscellaneous Notes Telephone Encounter - Clara Nunez - 11/01/2011 4:14 PM CDT Met in consultation for: Hypertension and smoking Parameters Addressed: B/P management and Tobacco Vital Signs 02/18/2008 03/09/2009 03/28/2010 09/06/2011 Systolic 170 180 138 176 Diastolic 90 88 80 92 Recommended follow-up: none Considerations: LAST OV ON 09/06/11 FOR BP AND SMOKING. 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 STARTED ON WELLBUTRIN FOR SMOKING documented in this encounter Plan of Treatment Not on filedocumented as of this encounter Visit Diagnoses Not on filedocumented in this encounter Care Teams Van Cdl Driver Relationship Specialty Start Date End Date Boris Balderrama MD PCP - General 02/20/02 11/13/15 [address] [place] [address] documented as of this encounter
--- OUTSIDE RECORDS SUMMARY | 2022-06-04 07:30 | XMS_ITS | Encounter Summary ---
:1950 Author Organization [place] Address [address] [facility] [place] [address] Care Team Providers Name Role Phone Boris Balderrama MD Primary Care Provider [phone] Reason for Visit Reason Onset Date Comments Refill Request 09/04/2012 Atenolol 50mg Encounter Details Date Type Department Care Team Description 09/04/2012 Refill [facility] Boris Balderrama Refill Request (Atenolol [facility] [place] MD Kash 50mg) [id number] [place] [id number] [phone] (Wo rk) Social History Tobacco Use Types Packs/Day Years Used Date Smoking Tobacco: Every Day Cigarettes 1 Smokeless Tobacco: Never Comments: quit 09/2005 Alcohol Use Standard Drinks/Week Comments Yes 0 (1 standard drink = 0.6 oz pure alcoho l) rarely Sex Assigned at Date Recorded Not on file documented as of this encounter Miscellaneous Notes Telephone Encounter - Khushboo Rizo RPH - 09/04/2012 3:04 PM CST Filled 1 month per protocol. Patient is due for office visit and BP check. Khushboo Rizo, Pharm D [facility] [phone] ING INSPECTOR AND TESTER Telephone Encounter - Bel Estrada - 09/04/2012 11:37 AM CST Last Fill Date: 05/26/12 Last Fill Quantity: 90 Last Office Visit: 11/23/11 Potassium Date Value Range Status 11/23/2011 4.5 3.4 - 5.3 mmol/L Final ] Creatinine Date Value Range Status 11/23/2011 0.92 0.66 - 1.25 mg/dL Final ] BP Readings from Last 3 Encounters: 11/23/11 150/76 09/06/11 176/92 03/28/10 138/80 ALT 25 11/23/2011 ING INSPECTOR AND TESTER documented in this encounter Plan of Treatment Not on filedocumented as of this encounter Visit Diagnoses Diagnosis Unspecified essential hypertension - Arianne alvarado documented in this encounter Care Teams Doughnut Machine Operator Helper Relationship Specialty Start Date End Date Boris Balderrama MD PCP - General 02/20/02 11/13/15 [address] [place] [address] documented as of this encounter
--- OUTSIDE RECORDS SUMMARY | 2022-06-04 07:30 | XMS_ITS | Encounter Summary ---
:1950 Author Organization [place] Address [facility] [place] [place] [address] Care Team Providers Name Role Phone Boris Balderrama MD Primary Care Provider [phone] Reason for Visit Reason Comments Insect Bites Bee sting-needing Epi inject ion Encounter Details Date Type Department Care Team Description 02/10/2008 Allied Health/Nurse [facility] Ins ect Bites (Bee Visit Clinic [facility] sting-needing Epi [address] [facility] [place] [address] Social History Tobacco Use Types Packs/Day Years Used Date Smoking Tobacco: Former Cigarettes 1.5 Comments: quit 09/2005 Alcohol Use Standard Drinks/Week Comments Yes 0 (1 standard drink = 0.6 oz pure alcoho l) rarely Sex Assigned at Date Recorded Not on file documented as of this encounter Nursing Notes 02/10/2008 4:15 PM CDT >> DILMA ROSALES rell Feb 17, 2008 11:43 AM Patient walked into clinic on SaturdayFebruary 09 at 5:00pm. Reports that he was stung by a bee to his hand and is in need of an Epi injection before my symptoms start. 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 States he has Epi pens at home where he was stung but he decided to come into the clinic for an injection and to be monitored. He was stung by a bee while reaching into his mailbox at home and then got into his car and drove here. He states he is starting to have some tingling and warmth to his arm, starting to develop a couple of hives to his arm as well. He appears to be in moderate distress, anxious that more severe sx's may occur, denies having any SOB, I do not hear any wheezes, no lip or eye swelling noted. I spoke with Dr. Kendrick and he had stated to give injection of Epi 0.3mg and monitor patient for further symptoms, call 911 or send to ER if sx's worsen. I did give the patient an Epi 0.3mg injectionto his thigh. Monitored pateint for 20 minutes. Patient had no signs of further sx's, his hives thathad developed actually went away. Patient stated after 20 minutes he felt much calmer and did not feel any more tingling to his arm. Patient appeared then to be in no distress, I did not see any signs of allergic reaction after his Epi injection. I did advise patient that if sx's develop again or if has signs of throat thickening or SOB, then he should give himself another Epi injection at home then call [address] him to ER immediately. Patient agreed, verbalized understanding and states he has been through this before. Left the clinic at about 5:25pm appearing in no distress and nosigns or sx's of reaction. Dilma Rosales RN documented in this encounter Plan of Treatment Not on filedocumented as of this encounter Visit Diagnoses Diagnosis ALLERGY, UNSPECIFIED - Primary Allergy, unspecified not elsewhere class ified documented in this encounter Care Teams Drafter Civil (Cad) Relationship Specialty Start Date End Date Boris Balderrama MD PCP - General 02/20/02 11/13/15 [address] [place] [address] documented as of this encounter
--- OUTSIDE RECORDS SUMMARY | 2022-06-04 07:30 | XMS_ITS | Encounter Summary ---
:1950 Author Organization [place] Address [address] [place] [address] Care Team Providers Name Role Phone Boris Balderrama MD Primary Care Provider [phone] Reason for Visit Reason Comments Blood Draw Encounter Details Date Type Department Care Team Description 12/07/2004 Orders Only [facility] BENIGN HYPERTENSION [facility] [address] [place], [place] [phone] Social History Tobacco Use Types Packs/Day Years [...] Priority Date/Time Associated Diagnosis Comme nts HCL PROSTATE SPEC Routine 12/07/2004 10:15 Benign Hypertension Results for this ANTIGEN,SCREEN AM CDT procedure are in the results section. HCL COMPREHENSIVE Routine 12/07/2004 10:15 Benign Hypertension Results for this METABOLIC PANEL AM CDT procedure ar e in the results section. CL AFF A.M.A. LIPID Routine 12/07/2004 10:15 Benign Hypertensi on Results for this PANEL AM CDT procedure are i n the results section. documented in this encounter Results PROSTATE SPEC ANTIGEN,SCREEN (12/07/2004 10:15 AM CDT) P athologist Signature PSA 1.02 0 - 4 ug/L [facility] Specimen Anatomical Collection Method Collection Time Receive d Time (Source) Location / / Volume Laterality 12/07/2004 10:15 12/07/2004 AM CDT 10:17 AM CDT Boris Balderrama MD LABORATORY Performing Organization Address City/State/ZIP Code Phon e Number [facility] [address] [place] [address] [facility] A.M.A. COMPREHENSIVE MET.PANEL (12/07/2004 10:15 AM CDT) P athologist Signature Sodium 139 133 - 144 [place] mmol/L [facility] Potassium 4.3 3.4 - 5.3 [place] mmol/L [facility] Chloride 103 94 - 109 [place] mmol/L [facility] Carbon Dioxide 29 20 - 32 [place] mmol/L [facility] Anion Gap 7 6 - 17 [place] mmol/L [facility] Glucose 108 60 - 110 [facility] mg[facility] Urea Nitrogen 14 7 - 30 [place] mg/dL [facility] Creatinine 0.90 0.80 - [place] 1.50 mg/dL [facility] GFR Estimate >80 >60 [facility] [place] mL/min/1.7 [facility] m2 LAB GFR Estimate If >80 >60 [facility] Black mL/min/1.7 [facility] m2 LAB Calcium 9.6 8.5 - 10.4 [place] mg/dL [facility] Bilirubin Total 0.9 0.2 - 1.3 [place] mg/dL [facility] Albumin 4.2 3.3 - 4.6 [place] g/dL [facility] Protein Total 7.6 6.0 - 8.2 [place] g/dL [facility] Alkaline 89 40 - 150 [facility] Phosphatase U/L [facility] ALT 17 0 - 70 U/L [facility] AST 26 0 - 55 U/L [facility] Specimen Anatomical Collection Method Collection Time Receive d Time (Source) Location / / Volume Laterality 12/07/2004 10:15 12/07/2004 AM CDT 10:17 AM CDT Boris Balderrama MD LABORATORY Performing Organization Address City/[facility]/ZIP Code Phon e Number [facility] [address] [place] [address] [facility] (ABNORMAL) A.M.A. LIPID PANEL (12/07/2004 10:15 AM CDT) athologist Signature Cholesterol 208 (H) 0 - 200 [facility] mg/dL [facility] Comment: Cholesterol Reference Range: <200 ??The NCEP recommends further ? evaluation of: ? 1. ??Patients with cholesterol ? greater than 200 mg/dL ? if additional risk facto rs ? are present. ? 2. ??All patients with a ? cholesterol greater than ? 240 mg/dL. Triglycerides 346 (H) 0 - 150 mg/dL [facility] HDL Cholesterol 23 (L) >40 mg/dL [facility] LDL Cholesterol Calculated 116 0 - 129 mg/dL [facility] VLDL-Cholesterol 69 (H) 0 - 30 mg/dL [facility] Cholesterol/HDL Ratio 9.1 (H) 0.0 - 5.0 [facility] Specimen Anatomical Collection Method Collection Time Receive d Time (Source) Location / / Volume Laterality 12/07/2004 10:15 12/07/2004 AM CDT 10:17 AM CDT Boris Balderrama MD LABORATORY Performing Organization Address City/State/ZIP Code Phon e Number [facility] [address] [place] [address] [facility] documented in this encounter Visit Diagnoses Diagnosis Essential hypertension, benign documented in this encounter Care Teams Excelsior Machine Tender Relationship Specialty Start Date End Date Boris Balderrama MD PCP - General 02/20/02 11/13/15 [address] [place] [address] documented as of this encounter
--- OUTSIDE RECORDS SUMMARY | 2022-06-04 07:30 | XMS_ITS | Encounter Summary ---
:1950 Author Organization [place] Address [address] [facility] [place] [address] Care Team Providers Name Role Phone Boris Balderrama MD Primary Care Provider [phone] Reason for Visit Reason Onset Date Comments Medication Request 02/18/2012 Atenolol 50mg Medication Request 02/18/2012 Lisinopril-Hydrochlo rothiazide 20-25mg Encounter Details Date Type Department Care Team Description 02/18/[address] [facility] Boris Balderrama Medica tion Request Clinic Kindra Hewitt MD (Atenolol 50mg ); [address] [facility] [id number] [place] [address] Medication Request [place], [place] (Lisino pril-Hydrochloro [phone] thiazide 20-25mg) [phone] (Wo rk) Social History Tobacco Use Types Packs/Day Years Used Date Smoking Tobacco: Every Day Cigarettes 1 Smokeless Tobacco: Never Comments: quit 09/2005 Alcohol Use Standard Drinks/Week Comments Yes 0 (1 standard drink = 0.6 oz pure alcoho l) rarely Sex Assigned at Date Recorded Not on file documented as of this encounter Miscellaneous Notes Telephone Encounter - Susana Reeves - 02/18/2012 2:27 PM CDT Pt calling asking for 90 day scripts. They are t'd up and awaiting your approval. Last office visit 11/23/11. Deidra Reeves LPN Telephone Encounter - Qian Grant - 02/18/2012 12:[address] Balderrama, Patient has requested 120 Day supply for each of these prescriptions. Please write a new RX reflecting this quantity and fax to us. Thank you documented in this encounter Plan of Treatment Not on filedocumented as of this encounter Visit Diagnoses Diagnosis Unspecified essential hypertension - Arianne jenny ALLERGY, UNSPECIFIED Allergy, unspecified not elsewhere class ified documented in this encounter Care Teams High School Science Tutor Relationship Specialty Start Date End Date Boris Balderrama MD PCP - General 02/20/02 11/13/15 [address] [place] [address] documented as of this encounter
--- OUTSIDE RECORDS SUMMARY | 2022-06-04 07:30 | XMS_ITS | Encounter Summary ---
:1950 Author Organization [place] Address [address] [place] [address] Care Team Providers Name Role Phone Boris Balderrama MD Primary Care Provider [phone] Encounter Details Date Type Department Care Team Description 09/04/2006 Historic Results INTERFACED REPORT Bro Shafer MD [facility] [address] [place], [place] [address] (Wo rk) Social History [...] encounter Procedures Procedure Name Priority Date/Time Associated Comments Diagnosis TROPONIN I STAT 09/04/2006 12:25 Results for this PM FARM EQUIPMENT ENGINE MECHANIC procedure are i n the results section. ELECTROLYTE PANEL STAT 09/04/2006 12:25 Result s for this PM FARM EQUIPMENT ENGINE MECHANIC procedure are i n the results section. HEMOGRAM DIFFERENTIAL STAT 09/04/2006 12:25 Re sults for this AND PLATELET PM FARM EQUIPMENT ENGINE MECHANIC procedure are i n the results section. UREA NITROGEN (BUN) STAT 09/04/2006 12:25 Resu lts for this PM FARM EQUIPMENT ENGINE MECHANIC procedure are i n the results section. MYOGLOBIN STAT 09/04/2006 12:25 Results for this PM FARM EQUIPMENT ENGINE MECHANIC procedure are i n the results section. CREATININE STAT 09/04/2006 12:25 Results for this PM FARM EQUIPMENT ENGINE MECHANIC procedure are i n the results section. GLUCOSE STAT 09/04/2006 12:25 Results for this PM FARM EQUIPMENT ENGINE MECHANIC procedure are i n the results section. documented in this encounter Results Hemogram differential and platelet (09/04/2006 12:25 PM FARM EQUIPMENT ENGINE MECHANIC) [facility] gist Method Time Signature MCV 84 78 - 100 [facility] fl MCH 29.9 26.5 - [facility] 33.0 pg MCHC 35.7 32.0 - [facility] 36.0 g/dL RDW 11.3 10.0 - [facility] 15.0 % WBC 6.8 4.0 - [facility] 11.0 10e9/L RBC Count 5.27 4.4 - 5.9 [facility] 10e12/L Hemoglobin 15.7 13.3 - [facility] 17.7 g/dL Hematocrit 44.1 40.0 - [facility] 53.0 % % Neutrophils 71 40 - 75 % [facility] % Lymphocytes 21 20 - 48 % [facility] % Monocytes 6 0 - 12 % [facility] % Eosinophils 2 0 - 6 % [facility] % Basophils 0 0 - 2 % [facility] Platelet Count 246 150 - 450 [facility] 10e9/L Absolute 4.8 1.6 - 8.3 [facility] Neutrophil 10e9/L Absolute 1.4 0.8 - 5.3 [facility] Lymphocytes 10e9/L Absolute 0.4 0.0 - 1.3 [facility] Monocytes 10e9/L Absolute 0.1 0.0 - 0.7 [facility] Eosinophils 10e9/L Absolute 0.0 0.0 - 0.2 [facility] Basophils 10e9/L Diff Method Automated [facility] Method Specimen Anatomical Collection Method Collection Time Receive d Time (Source) Location / / Volume Laterality 09/04/2006 12:25 09/04/2006 PM FARM EQUIPMENT ENGINE MECHANIC 12:16 PM FARM EQUIPMENT ENGINE MECHANIC Lion Shafer MD LAB - BLOOD ORDERABLES Performing Organization Address City/State/ZIP Code Phon e Number [facility] Electrolyte panel (09/04/2006 12:25 PM FARM EQUIPMENT ENGINE MECHANIC) athologist Signature Sodium 140 133 - 144 [facility] mmol/L Potassium 3.7 3.4 - 5.3 [facility] mmol/L Chloride 100 94 - 109 [facility] mmol/L Carbon Dioxide 30 20 - 32 [facility] mmol/L Anion Gap 10 6 - 17 [facility] mmol/L Specimen Anatomical Collection Method Collection Time Receive d Time (Source) Location / / Volume Laterality 09/04/2006 12:25 09/04/2006 PM FARM EQUIPMENT ENGINE MECHANIC 12:16 PM FARM EQUIPMENT ENGINE MECHANIC Lion Shafer MD LAB - BLOOD ORDERABLES Performing Organization Address City/[facility]/ZIP Code Phon e Number [facility] Creatinine (09/04/2006 12:25 PM FARM EQUIPMENT ENGINE MECHANIC) P athologist Signature Creatinine 0.84 0.80 - [facility] 1.50 mg/dL GFR Estimate >90 >60 [facility] mL/min/1.7 m2 GFR Estimate If >90 >60 [facility] Black mL/min/1.7 m2 Comment: Stages of Chronic Kidney Disease Stage 1: ??GFR 90 or greater and other e vidence of kidney damage* Stage 2: ??GFR 60-89 and other evidence of kidney damage * Stage 3: ??GFR 30-59 Stage 4: ??GFR 15-29 Stage 5: ??GFR less than 15 or dialysis *Chronic kidney disease is defined as ki dney damage or GFR less than 60 mL/min/1.73 m2 for three months or grea ter. ??Kidney damage is defined as pathologic abnormalities or markers or damage, including abnormalities in blood or urine tests or imaging studies. Specimen Anatomical Collection Method Collection Time Receive d Time (Source) Location / / Volume Laterality 09/04/2006 12:25 09/04/2006 PM FARM EQUIPMENT ENGINE MECHANIC 12:16 PM FARM EQUIPMENT ENGINE MECHANIC Lion Shafer MD LAB - BLOOD ORDERABLES Performing Organization Address [facility] Phon e Number [facility] Urea nitrogen (09/04/2006 12:25 PM FARM EQUIPMENT ENGINE MECHANIC) athologist Signature Urea Nitrogen 13 7 - 30 [facility] mg/dL Specimen Anatomical Collection Method Collection Time Receive d Time (Source) Location / / Volume Laterality 09/04/2006 12:25 09/04/2006 PM FARM EQUIPMENT ENGINE MECHANIC 12:16 PM FARM EQUIPMENT ENGINE MECHANIC Lion Shafer MD LAB - BLOOD ORDERABLES Performing Organization Address City/State/ZIP Code Phon e Number [facility] (ABNORMAL) Glucose (09/04/2006 12:25 PM FARM EQUIPMENT ENGINE MECHANIC) athologist Signature Glucose 113 (H) 60 - 110 [facility] mg/dL Specimen Anatomical Collection Method Collection Time Receive d Time (Source) Location / / Volume Laterality 09/04/2006 12:25 09/04/2006 PM FARM EQUIPMENT ENGINE MECHANIC 12:16 PM FARM EQUIPMENT ENGINE MECHANIC Lion Shafer MD LAB - BLOOD ORDERABLES Performing Organization Address City/State/ZIP Code Phon e Number [facility] Troponin I (09/04/2006 12:25 PM FARM EQUIPMENT ENGINE MECHANIC) P athologist Signature Troponin I <0.04 0.00 - 0.40 [facility] ug/L Specimen Anatomical Collection Method Collection Time Receive d Time (Source) Location / / Volume Laterality 09/04/2006 12:25 09/04/2006 PM FARM EQUIPMENT ENGINE MECHANIC 12:16 PM FARM EQUIPMENT ENGINE MECHANIC Lion Shafer MD LAB - BLOOD ORDERABLES Performing Organization Address City/[facility] Code Phon e Number [facility] Myoglobin (09/04/2006 12:25 PM FARM EQUIPMENT ENGINE MECHANIC) P athologist Signature Myoglobin 34 <120 ug/L [facility] Specimen Anatomical Collection Method Collection Time Receive d Time (Source) Location / / Volume Laterality 09/04/2006 12:25 09/04/2006 PM FARM EQUIPMENT ENGINE MECHANIC 12:16 PM FARM EQUIPMENT ENGINE MECHANIC Lion Shafer MD LAB - BLOOD ORDERABLES Performing Organization Address City/[facility] Phon e Number [facility] documented in this encounter Visit Diagnoses Not on filedocumented in this encounter Care Teams Entry Level Sales Representative Relationship Specialty Start Date End Date Boris Balderrama MD PCP - General 02/20/02 11/13/15 [address] [place] [address] documented as of this encounter
--- OUTSIDE RECORDS SUMMARY | 2022-06-04 07:30 | XMS_ITS | Encounter Summary ---
:1950 Author Organization [place] Address [address] [place] [address]. [place] [address] Care Team Providers Name Role Phone Boris Balderrama MD Primary Care Provider Reason for Visit Reason Comments Refill Request Encounter Details Date Type Department Care Team Description 03/06/2005 Office Visit [facility] Boris Balderrama BENIGN HYPERTENSION Clinic Lawrence MD Kash (Primary Dx) [address] [place] [id number] [phone] Social History Tobacco Use Types Packs/Day Years Used Date Smoking Tobacco: Every Day Cigarettes 1.5 Alcohol Use Standard Drinks/Week Comments Yes 0 (1 standard drink = 0.6 oz pure alcoho l) rarely Sex Assigned at Date Recorded Not on file documented as of this encounter Last Filed Vital Signs Vital Sign Reading Time Taken Comments Blood Pressure 132/80 03/06/2005 11:00 AM CDT Pulse 60 03/06/2005 11:00 AM CDT Temperature 36.6 ??C (97.9 ??F) 03/06/2005 11:00 AM CDT Respiratory Rate - - Oxygen Saturation - - Inhaled Oxygen Concentration - - Weight 93 kg (205 lb) 03/06/2005 11:00 AM CDT Height - - Body Mass Index 27.8 11/17/2004 10:30 AM CDT documented in this encounter Progress Notes Boris Balderrama - 03/06/2005 11:41 AM CDT SUBJECTIVE: CC: Suresh Martinez is a 55 year old male who presents for follow up of hypertension HPI: at goal, near his ideal weight, diet is reasonable, not much alcohol, not much exercise PROBLEM LIST: There is no problem list on file for this patient. PAST MEDICAL HISTORY: Previous Medical History: HYPERTENSION NOS PAST SURGICAL HISTORY: There is no previous surgical history on file. CURRENT MEDICATIONS: Current outpatient prescriptions: EPINEPHRINE HCL (ANAPHYLAXIS) 1:1000 IM ERWIN 1 TIME ONLY EPIPEN 2-MAIK Use as Directed PRN ATENOLOL 25 MG OR TABS 1/2 TABLET DAILY EPIPEN 1:1000 IM ERWIN 1 TIME ONLY FAMILY HISTORY: Family History: Cancer Mother HEALTH MAINTENANCE: REVIEW OF OUTSIDE RECORDS: NO REVIEW OF SYSTEMS: C: NEGATIVE for fever, chills, change in weight I: NEGATIVE for worrisome rashes, moles or lesions E: NEGATIVE for vision changes or irritation E/M: NEGATIVE for ear, mouth and throat problems R: NEGATIVE for significant cough or SOB CV: NEGATIVE for chest pain, palpitations or peripheral edema GI: NEGATIVE for nausea, abdominal pain, heartburn, or change in bowel habits : NEGATIVE for frequency, dysuria, or hematuria EXAM: BP 132/80 Pulse 60 Temp (Src) 97.9 (Oral) Wt 205 lbs (93.0kg) GENERAL APPEARANCE: healthy, alert and no distress [...] HSM or masses and bowel sounds normal MS: extremities normal- no gross deformities noted, no evidence of inflammation in joints, FROM in all extremities. SKIN: no suspicious lesions or rashes NEURO: Normal strength and tone, sensory exam grossly normal, mentation intact and speech normal PSYCH: mentation appears normal. 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 I have instructed the patient to call or schedule a follow-up appointment if any problems or failureto improve. documented in this encounter Nursing Notes 03/06/2005 11:00 AM CDT >> TEJAS KHALIL 03/06/2005 11:08 am Suresh H Ronyabenarell presents for refill request . Initial BP 132/80 Pulse 60 Temp (Src) 97.9 (Oral) Wt 205 lbs (93.0kg) Estimated Body Mass Index is 27.80 kg/(m^2) as calculated from: Height of 6' 0 (1.829m) as of 11/17/04 Weight of 205 lbs (92.987 kg) as of this encounter . BP completed using cuff size: large.TEJAS KHALIL CMA documented in this encounter Plan of Treatment Not on filedocumented as of this encounter Visit Diagnoses Diagnosis Essential hypertension, benign - Primary documented in this encounter Care Teams Regulator Pin Inserter Relationship Specialty Start Date End Date Boris Balderrama MD PCP - General 02/20/02 11/13/15 [address] [place] [address] documented as of this encounter
--- OUTSIDE RECORDS SUMMARY | 2022-06-04 07:30 | XMS_ITS | Encounter Summary ---
:1950 Author Organization [facility] Address [address] [place] [address]. [place] [address] Care Team Providers Name Role Phone Boris Balderrama MD Primary Care Provider [phone] Reason for Visit Reason Comments Insect Bites allergic reaction to bee sti ng Refill Request Encounter Details Date Type Department Care Team Description 12/11/2005 Office Visit [facility] Boris Balderrama ALLERG Y, UNSPECIFIED [facility] [place] (Primary Dx) [address] [place] [id number] [phone] Social History Tobacco Use Types Packs/Day Years Used Date Smoking Tobacco: Former Cigarettes 1.5 Comments: quit 09/2005 Alcohol Use Standard Drinks/Week Comments Yes 0 (1 standard drink = 0.6 oz pure alcoho l) rarely Sex Assigned at Date Recorded Not on file documented as of this encounter Last Filed Vital Signs Vital Sign Reading Time Taken Comments Blood Pressure 160/98 12/11/2005 2:30 PM CDT Pulse - - Temperature 36.8 ??C (98.2 ??F) 12/11/2005 2:30 PM CDT Respiratory Rate - - Oxygen Saturation - - Inhaled Oxygen Concentration - - Weight 98.4 kg (217 lb) 12/11/2005 2:30 PM CDT Height 188 cm (6' 2) 12/11/2005 2:30 PM CDT Body Mass Index 27.86 12/11/2005 2:30 PM CDT documented in this encounter Progress Notes Boris Balderrama - 12/12/2005 1:04 PM CDT Suresh is a 55 year old male who presents for follow up of: Stung by a bee, known to be allergic to some, no mucosal or resp symptoms but itchy urticaria: given epinephrine and zyrtec and observed with good improvement. AAP discussed Patient Active Problem List Diagnoses Code ??? ALLERGY, UNSPECIFIED 995.3 ??? ALLERGIC RHINITIS NOS 477.9 Past Medical History Diagnosis Date ??? HYPERTENSION NOS No past surgical history on file. Current outpatient prescriptions Medication Sig ??? EPINEPHRINE HCL (ANAPHYLAXIS) 1 MG/ML IJ SOLN 0.2 cc given now ??? ATENOLOL 25 MG OR TABS 1/2 TABLET DAILY ??? EPIPEN 2-MAIK Use as Directed PRN Allergies Allergen Reactions ??? Pcn (penicillins) ??? Bee Review of Systems: CONSTITUTIONAL:NEGATIVE for fever, chills, change in weight INTEGUMENTARY/SKIN: NEGATIVE for worrisome rashes, moles or lesions EYES: NEGATIVE for vision changes or irritation RESP:NEGATIVE for significant cough or SOB CV: NEGATIVE for chest pain, palpitations or peripheral edema GI: NEGATIVE for nausea, abdominal pain, heartburn, or change in bowel habits Examination: GENERAL APPEARANCE: healthy, alert, no distress EYES: Eyes grossly normal to inspection, fundi benign-no diabetic or hypertensive changes seen, PERRL HENT: ear canals and TM's normal, nose and mouth without ulcers or lesions NECK: no adenopathy, no asymmetry, masses, or scars, thyroid normal to palpation LYMPHATICS: normal ant/post cervical, axillary, supraclavicular and inguinal nodes RESP: lungs clear to auscultation - no rales, rhonchi or wheezes CV: regular rates and rhythm, normal S1 S2, no S3 or S4, no murmur, click or rub, no irregular beats ABDOMEN: soft, nontender, without hepatosplenomegaly or masses, bowel sounds normal Specific bee sting protocol with zyrtec, epi pen and early eval ASSESSMENT: Encounter Diagnoses Code Name Primary? Qualifier ??? 995.3 ALLERGY, UNSPECIFIED Yes PLAN: .tsdisp Lali Holley - 12/11/2005 2:40 PM CDT .jm documented in this encounter Nursing Notes 12/11/2005 2:30 PM CDT >> LALI HOLLEY 12/11/2005 2:54 pm Patient presents with: Insect Bites - allergic reaction to bee sting Refill Request Initial BP 160/98 Temp (Src) 98.2 (Oral) Ht 6' 2 (1.88m) Wt 217 lbs (98.4kg) Body mass index is 27.85 kg/(m^2).. BP completed using cuff size large Lali Holley CMA documented in this encounter Plan of Treatment Not on filedocumented as of this encounter Visit Diagnoses Diagnosis Allergy, unspecified not elsewhere class ified - Primary documented in this encounter Care Teams U.[place]. Senator Relationship Specialty Start Date End Date Boris Balderrama MD PCP - General 02/20/02 11/13/15 [address] [place] [address] documented as of this encounter
--- OUTSIDE RECORDS SUMMARY | 2022-06-04 07:30 | XMS_ITS | Encounter Summary ---
:1950 Author Organization [place] Address [facility] [place] [address] Care Team Providers Name Role Phone Boris Balderrama MD Primary Care Provider Reason for Visit Reason Onset Date Comments Refill Request 04/18/2006 atenolol Encounter Details Date Type Department Care Team Description 04/18/2006 Refill [facility] Boris Balderrama [facility] [facility] [place] (atenolol) [address] [place] [phone] [phone] (Wo rk) Social History Tobacco Use Types Packs/Day Years Used Date Smoking Tobacco: Former Cigarettes 1.5 Comments: quit 09/2005 Alcohol Use Standard Drinks/Week Comments Yes 0 (1 standard drink = 0.6 oz pure alcoho l) rarely Sex Assigned at Date Recorded Not on file documented as of this encounter Miscellaneous Notes Telephone Encounter - Bhavna Shrestha - 04/18/2006 9:25 AM CDT Last OV:12-11-05, BP 160/98 Reason:allergic reaction Provider:BHARAT Last Refill:06-18-05 Will route as BP elevated Bhavna Johnson RN documented in this encounter Plan of Treatment Not on filedocumented as of this encounter Visit Diagnoses Diagnosis Essential hypertension, benign documented in this encounter Care Teams Industrial Production Manager Relationship Specialty Start Date End Date Boris Balderrama MD PCP - General 02/20/02 11/13/15 [address] [place] [address] documented as of this encounter
--- OUTSIDE RECORDS SUMMARY | 2022-06-04 07:30 | XMS_ITS | Encounter Summary ---
:1950 Author Organization [facility] Address [address] [place] [address] Care Team Providers Name Role Phone Boris Balderrama MD Primary Care Provider [phone] Encounter Details Date Type Department Care Team Description 09/04/2006 Historic Results INTERFACED REPORT Interface, Gita sterling MD Social History Tobacco Use Types Packs/Day Years [...] Name Priority Date/Time Associated Diagnosis Comme nts EKG 12 LEAD Routine 09/04/2006 12:25 PM Results for this SODA TESTER procedure are i n the results section . documented in this encounter Results EKG 12 LEAD (09/04/2006 12:25 PM SODA TESTER) Component Value Ref Range Test Analysis Performed Pathologis t Method Time At Signature Ventricular Rate 64 BPM RADIOLOGY RESULTS Atrial Rate 64 BPM RADIOLOGY RESULTS IL Interval 178 ms RADIOLOGY RESULTS QRS Duration 94 ms RADIOLOGY RESULTS QT 400 ms RADIOLOGY RESULTS QTc 412 ms RADIOLOGY RESULTS P [place] 53 degrees RADIOLOGY RESULTS R AXIS 2 degrees RADIOLOGY RESULTS T [place] 8 degrees RADIOLOGY RESULTS Interpretation AGE AND GENDER SPECIFIC ECG ANALYSIS RADIOLOGY ECG Sinus rhythm RESULTS Normal ECG Unconfirmed report - interpretation of this ECG is compute r generated - see medical record for final interpretation Specimen Anatomical Collection Method Collection Time Receive d Time (Source) Location / / Volume Laterality 09/04/2006 12:25 09/04/2006 2:32 PM SODA TESTER PM SODA TESTER Transcripton Interface ECG ORDERABLES Performing Organization Address City/State/ZIP Code Phon e Number RADIOLOGY RESULTS documented in this encounter Visit Diagnoses Not on filedocumented in this encounter Care Teams Outsole Paraffiner Relationship Specialty Start Date End Date Boris Balderrama MD PCP - General 02/20/02 11/13/15 [address] [place] [address] documented as of this encounter
--- OUTSIDE RECORDS SUMMARY | 2022-06-04 07:30 | XMS_ITS | Encounter Summary ---
:1950 Author Organization [facility] Address [address] [place] [address]. [place] [address] Care Team Providers Name Role Phone Boris Balderrama MD Primary Care Provider Reason for Visit Reason Onset Date Comments Refill Request 11/19/2011 Encounter Details Date Type Department Care Team Description 11/19/2011 Refill [facility] Boris Balderrama, Ref[place] [address] [place] [phone] [place], [place] [phone] (Wo rk) Social History Tobacco Use Types [...] encounter Visit Diagnoses Diagnosis Unspecified essential hypertension documented in this encounter Care Teams Salesperson Jewelry Relationship Specialty Start Date End Date Boris Balderrama MD PCP - General 02/20/02 11/13/[id number] [place] [phone] documented as of this encounter
--- OUTSIDE RECORDS SUMMARY | 2022-06-04 07:30 | XMS_ITS | Encounter Summary ---
:1950 Author Organization [facility] Address [address] [place] [address] Care Team Providers Name Role Phone Boris Balderrama MD Primary Care Provider [phone] Reason for Visit Reason Comments Back Pain flare-up x5 days, unknown th e cause Encounter Details Date Type Department Care Team Description 11/24/2012 Office Visit [facility] Houston Thornton MD Low back strain Clinic [place] [address] [place] [address] (Primary Dx) [address] [place] [address] [phone] Social History Tobacco Use Types Packs/Day Years Used Date Smoking Tobacco: Former Cigarettes 1 Smokeless Tobacco: Never Comments: quit 09/2005 Alcohol Use Standard Drinks/Week Comments Yes 0 (1 standard drink = 0.6 oz pure alcoho l) rarely Sex Assigned at Date Recorded Not on file documented as of this encounter Last Filed Vital Signs Vital Sign Reading Time Taken Comments Blood Pressure 146/100 11/24/2012 8:49 AM CDT Pulse 65 11/24/2012 8:49 AM CDT Temperature 36.7 ??C (98.1 ??F) 11/24/2012 8:49 AM CDT Respiratory Rate 20 11/24/2012 8:49 AM CDT Oxygen Saturation 98% 11/24/2012 8:49 AM CDT Inhaled Oxygen Concentration - - Weight 92.2 kg (203 lb 4.8 oz) 11/24/2012 8:49 AM CDT Height 188 cm (6' 2) 11/24/2012 8:49 AM CDT Body Mass Index 26.1 11/24/2012 8:49 AM CDT documented in this encounter Progress Notes Houston Thornton MD - 11/24/2012 8:52 AM CDT SUBJECTIVE: Suresh Martinez is a 62 year old male who presents to clinic today for the following health issues: Back Pain ?? Onset: 6 days ?? Description: Location of pain: low back Character of pain: stabbing Pain radiation:none ?? Intensity: 5/10 ?? Accompanying Signs & Symptoms: Fever: no Numbness or weakness in legs: no Dysuria or Hematuria: no Bowel or bladder incontinence: no ?? History: Any injury (lifting, bending, twisting): no Work Injury: no History of back problems: recurrent self limited episodes of low back pain in the past Any previous MRI or X-rays: Yes- how long ago: 5-6 years ago Any history of back surgery: no Any cancer history: no ?? Precipitating factors: Worsened by: Standing and Walking. ?? Alleviating factors: Improved by: rest, ice and heat ?? Therapies Tried and outcome: rest, cold therapy and heat therapy PROBLEMS TO ADD ON... none Problem list and histories reviewed & adjusted, as indicated. Additional history: as documented ROS: C: NEGATIVE for fever, chills, change in weight E/M: NEGATIVE for ear, mouth and throat problems R: NEGATIVE for significant cough or SOB CV: NEGATIVE for chest pain, palpitations or peripheral edema Problem list, Medication list, Allergies, and Medical/Social/Surgical histories reviewed in [facility] andupdated as appropriate. OBJECTIVE: BP 146/100 Pulse 65 Temp(Src) 98.1 ??F (36.7 ??C) (Oral) Resp 20 Ht 6' 2 (1.88 m) Wt 203 lb 4.8 oz (92.216 kg) BMI 26.10 kg/m2 SpO2 98% Body mass index is 26.10 kg/(m^2). GENERAL: healthy, alert, well nourished, well hydrated, no distress HENT: ear canals- normal; TMs- normal; Nose- normal; Mouth- no ulcers, no lesions NECK: no tenderness, no adenopathy, no asymmetry, no masses, no stiffness; thyroid- normal to palpation RESP: lungs clear to auscultation - no rales, no rhonchi, no wheezes CV: regular rates and rhythm, normal S1 S2, no S3 or S4 and no murmur, no click or rub - ABDOMEN: soft, no tenderness, no hepatosplenomegaly, no masses, normal bowel sounds Diagnostic test results: none ASSESSMENT/PLAN: 847.2 Low back strain (primary encounter diagnosis) Comment: Plan: oxyCODONE (ROXICODONE) 5 MG immediate release tablet, diazepam (VALIUM) 5 MG tablet See Patient Instructions Estimated Body mass index is 26.10 kg/(m^2) as calculated from the following: Height as of this encounter: 6' 2(1.88 m). Weight as of this encounter: 203 lb 4.8 oz(92.216 kg). Weight management plan: Current exercise routine: walking. Diet regimen was discussed and plan is self-directed dieting: reduce portions and reduce carbs. Houston Thornton MD [facility] documented in this encounter Nursing Notes 11/24/2012 8:30 AM CDT >> ALISSA HANNA Mon Nov 24, 2012 8:55 AM Patient presents with: Back Pain - flare-up x5 days, unknown the cause Initial BP 146/100 Pulse 65 Temp(Src) 98.1 ??F (36.7 ??C) (Oral) Resp 20 Ht 6' 2 (1.88 m) Wt 203 lb 4.8 oz (92.216 kg) BMI 26.10 kg/m2 SpO2 98% Estimated Body mass index is 26.10 kg/(m^2) as calculated from the following: Height as of this encounter: 6' 2(1.88 m). Weight as of this encounter: 203 lb 4.8 oz(92.216 kg). BP completed using cuff size large Right Arm Health Maintenance reviewed - Yes: (pt will have labs next week) Tobacco Verified: Yes Family History Updated: Yes MyChart Offered: Yes Immunizations Up to Date: Yes Alissa Hanna CMA documented in this encounter Plan of Treatment Not on filedocumented as of this encounter Visit Diagnoses Diagnosis Low back strain - Primary Sprain of lumbar region documented in this encounter Care Teams Chief Transfer And Pumphouse Operator Relationship Specialty Start Date End Date Boris Balderrama MD PCP - General 02/20/02 11/13/15 [address] [place] [address] documented as of this encounter
--- OUTSIDE RECORDS SUMMARY | 2022-06-04 07:30 | XMS_ITS | Encounter Summary ---
:1950 Author Organization [facility] Address [facility] [place] [address] Care Team Providers Name Role Phone Boris Balderrama MD Primary Care Provider Reason for Visit Reason Onset Date Comments Refill Request 10/31/2011 LISINOPRIL-HCTZ 20-2 5MG Encounter Details Date Type Department Care Team Description 10/31/2011 Refill [facility] Boris Balderrama Refill Request Clinic Kindra Hewitt MD (LISINOPRIL-HCTZ [address] 20-25MG) [place] [address] [phone] (Wo rk) Social History Tobacco Use Types Packs/Day Years Used Date Smoking Tobacco: Every Day Cigarettes 1 Smokeless Tobacco: Never Comments: quit 09/2005 Alcohol Use Standard Drinks/Week Comments Yes 0 (1 standard drink = 0.6 oz pure alcoho l) rarely Sex Assigned at Date Recorded Not on file documented as of this encounter Miscellaneous Notes Telephone Encounter - Kunal Cabello - 11/01/2011 9:13 AM CDT Will approve for one fill only, patient needs appt and/or labs despite recent OV with PCP. BMP ordered in chart. Conor Cabello PharmD [facility] Float Pharmacist Telephone Encounter - Mirta Brothers - 10/31/2011 1:41 PM CDT Last Fill Date: 10/01/11 Last Fill Quantity: 30 Last Office Visit: 09/06/11 Potassium Date Value Range Status 03/28/2010 4.3 3.4-5.3 (mmol/L) Final ] Creatinine Date Value Range Status 03/28/2010 0.90 0.66-1.25 (mg/dL) Final New IDMS-traceable calibration beginning 12/11/07 ] BP Readings from Last 3 Encounters: 09/06/11 176/92 03/28/10 138/80 03/09/09 180/88 documented in this encounter Plan of Treatment Not on filedocumented as of this encounter Visit Diagnoses Diagnosis Unspecified essential hypertension - Arianne alvarado documented in this encounter Care Teams Lunchroom Aide Relationship Specialty Start Date End Date Boris Balderrama MD PCP - General 02/20/02 11/13/15 [address] [place] [address] documented as of this encounter
--- OUTSIDE RECORDS SUMMARY | 2022-06-04 07:30 | XMS_ITS | Encounter Summary ---
:1950 Author Organization [facility] Address [address] [place] [address] Care Team Providers Name Role Phone Boris Balderrama MD Primary Care Provider [phone] Encounter Details Date Type Department Care Team Description 09/04/2006 Results Only [facility] Lion Shafer MD Hospital Results [facility] [address] [place], [place] [address] (Wo rk) Social History [...] Name Priority Date/Time Associated Diagnosis Comme nts HC CHEST TWO VIEWS, Routine 09/04/2006 1:10 PM Re sults for this FRONT/LAT BOX OFFICE CLERK procedure are i n the results section. H MRI BRAIN WO&W Routine 09/04/2006 1:01 PM Resul ts for this CONTRAST BOX OFFICE CLERK procedure are i n the results section. documented in this encounter Results CHEST X-RAY 2 VW (09/04/2006 1:10 PM BOX OFFICE CLERK) Anatomical Region Laterality Modality Other Specimen (Source) Anatomical Collection Method Collection Time Re ceived Time Location / / Volume Laterality 09/04/2006 1:10 PM BOX OFFICE CLERK Impressions 09/04/2006 2:27 PM BOX OFFICE CLERK EXAM: ??CHEST TWO VIEW* HISTORY: ??Chest Pain, ??Chest Pain, FINDINGS: Negative. Lion Shafer MD GENERAL IMAGING MRI BRAIN COMBO (09/04/2006 1:01 PM BOX OFFICE CLERK) Anatomical Region Laterality Modality Other Specimen (Source) Anatomical Collection Method Collection Time Re ceived Time Location / / Volume Laterality 09/04/2006 1:01 PM BOX OFFICE CLERK Impressions 09/04/2006 1:26 PM BOX OFFICE CLERK MRI BRAIN WW/O CONTRAST* ?Sep 04, 2 007 1:01:00 PM History: Left-sided arm and leg numbness and weak ness. Hypertension Technique: Multiplanar, multisequence MRI of the br ain without and with 20 mL IV gadolinium contrast material. Findings: ?? There are a few small foci of prolonged T2 relaxation in the central and periventricular white matter of the cerebral hemispheres. There is no evidence of hemorrhage, mass , demyelination, acute infarct, or anomaly. There are no gadolinium enhancing lesion s. There is scattered mucosal thickening in the paranasal sinuses. The arteries at the base of the brain an d the dural venous sinuses appear patent. Conclusion: Scattered white matter lesions in the ce rebral hemispheres, nonspecific as to etiology. These may be related to the patient's hypertension. No acute infarct. I called the report to the emergency room. Lion Shfaer MD [employer] documented in this encounter Visit Diagnoses Not on filedocumented in this encounter Care Teams Deployment Technician Relationship Specialty Start Date End Date Boris Balderrama MD PCP - General 02/20/02 11/13/15 [address] [place] [address] documented as of this encounter
--- OUTSIDE RECORDS SUMMARY | 2022-06-04 07:30 | XMS_ITS | Encounter Summary ---
:1950 Author Organization [place] Address [facility] [place] [address] Care Team Providers Name Role Phone Boris Balderrama MD Primary Care Provider Reason for Visit Reason Comments Physical with fasting labs Refill Request Encounter Details Date Type Department Care Team Description 02/18/2008 Office Visit [facility] Boris Balderrama ALLERG Y, UNSPECIFIED; Clinic [place] MD Unspecified Essential Hypertension; [id number] [place] [id number] [place] [address] Special Screening for Malignant [place] [address] [phone] Social History Tobacco Use Types Packs/Day Years Used Date Smoking Tobacco: Former Cigarettes 1.5 Comments: quit 09/2005 Alcohol Use Standard Drinks/Week Comments Yes 0 (1 standard drink = 0.6 oz pure alcoho l) rarely Sex Assigned at Date Recorded Not on file documented as of this encounter Last Filed Vital Signs Vital Sign Reading Time Taken Comments Blood Pressure 170/90 02/18/2008 9:30 AM CDT Pulse 60 02/18/2008 9:30 AM CDT Temperature 36.8 ??C (98.2 ??F) 02/18/2008 9:30 AM CDT Respiratory Rate - - Oxygen Saturation - - Inhaled Oxygen Concentration - - Weight 105.2 kg (232 lb) 02/18/2008 9:30 AM CDT Height 189.2 cm (6' 2.5) 02/18/2008 9:30 AM CDT Body Mass Index 29.39 02/18/2008 9:30 AM CDT documented in this encounter Progress Notes Conchis Boris Kash - 02/18/2008 9:44 AM CDT SUBJECTIVE: CC: Suresh Martinez is a 58 year old male who presents for well exam HPI: generally feeling well, bp is high today without his lisinopril, he's fasting PROBLEM LIST: Patient Active Problem List Diagnoses Code ??? ALLERGY, UNSPECIFIED 995.3 ??? ALLERGIC RHINITIS NOS 477.9 ??? HYPERTENSION NOS 401.9 ??? BENIGN NEOPLASM LG BOWEL 211.3 PAST MEDICAL HISTORY: Past Medical History Diagnosis Date ??? HYPERTENSION NOS PAST SURGICAL HISTORY: No past surgical history on file. CURRENT MEDICATIONS: Current outpatient prescriptions Medication Sig ??? EPIPEN 0.3 MG/0.3ML (1:1000) IM ERWIN 1 TIME ONLY ??? FLUTICASONE PROPIONATE (INHAL) 44 MCG/ACT IN AERO two puffs twice daily ??? ATENOLOL 50 MG OR TABS ONE DAILY ??? LISINOPRIL-HYDROCHLOROTHIAZIDE 20-25 MG OR TABS ONE DAILY IN THE MORNING ??? ASPIRIN 81 MG OR TABS 1 [...] : NEGATIVE for frequency, dysuria, or hematuria male :negative for dysuria, hematuria, decreased urinary stream, erectile dysfunction M: NEGATIVE for significant arthralgias or myalgia N: NEGATIVE for weakness, dizziness or paresthesias E: NEGATIVE for temperature intolerance, skin/hair changes H: NEGATIVE for bleeding problems P: NEGATIVE for changes in mood or affect EXAM: BP 170/90 Pulse 60 Temp (Src) 98.2 ??F (36.8 ??C) (Oral) Ht 6' 2.5 (1.892 m) Wt 232 lb (105.235 kg) GENERAL APPEARANCE: [...] prostate symmetric w/o nodularity, no masses palpated GU_male: testicles normal without atrophy or masses and no hernias MS: extremities normal- no gross deformities noted, no evidence of inflammation in joints, FROM in all extremities. SKIN: no suspicious lesions or rashes NEURO: Normal strength and tone, sensory exam grossly normal, mentation intact and speech normal PSYCH: mentation appears normal. and affect normal/bright LYMPHATICS: No axillary, cervical, inguinal, or supraclavicular nodes ASSESSMENT/PLAN Well Adult Hypertension I have discussed with patient the risks, benefits, medications, treatment options and modalities. I have instructed the patient to call or schedule a follow-up appointment if any problems or failureto improve. documented in this encounter Nursing Notes 02/18/2008 9:30 AM CDT >> LALI HOLLEY Wed Feb 18, 2008 9:39 AM Patient presents with: Physical - with fasting labs Refill Request Initial BP 170/90 Pulse 60 Temp (Src) 98.2 ??F (36.8 ??C) (Oral) Ht 6' 2.5 (1.892 m) Wt 232lb (105.235 kg) Body mass index is 29.39 kg/(m^2).. BP completed using cuff size large Last Td:11/17/04 Last Colonoscopy:12/27/04 - normal Last PSA 12/07/04 - normal Lali Holley CMA documented in this encounter Plan of Treatment Not on filedocumented as of this encounter Procedures Procedure Name Priority Date/Time Associated Diagnosis Comme nts HCL PROSTATE SPEC Routine 02/18/2008 9:45 Unspecified Results for this ANTIGEN,SCREEN AM CDT Essential procedure are in Hypertension the results Special Screening section. for Malignant Neoplasms of Other Sites HCL COMPREHENSIVE Routine 02/18/2008 9:45 Unspecified Results for this METABOLIC PANEL AM CDT Essential procedure ar e in Hypertension the results section. CL AFF A.M.A. LIPID Routine 02/18/2008 9:45 Unspecified Resul ts for this PANEL AM CDT Essential procedure are i n Hypertension the results section. documented in this encounter Results PROSTATE SPEC ANTIGEN,SCREEN (02/18/2008 9:45 AM CDT) athologist Signature PSA 1.56 0 - 4 ug/L [facility] Specimen Anatomical Collection Method Collection Time Receive d Time (Source) Location / / Volume Laterality 02/18/2008 9:45 AM 8 9:50 CDT AM CDT Boris Balderrama MD LABORATORY Performing Organization Address City/State/ZIP Code Phon e Number [facility] [address] [place] [address] [facility] (ABNORMAL) A.M.A. LIPID PANEL (02/18/2008 9:45 AM CDT) athologist Signature Cholesterol 208 (H) 0 - 200 [facility] Comment: LDL Cholesterol is the primary guide to therapy: LDL-cholesterol goal in high risk patients is <100 mg/dL and in very high risk patients is <70 mg/dL. The NCEP recommends further evaluation of: patients with cholesterol <200 mg/dL if additional risk factors are present, cholesterol >240 mg/dL, triglycerides >150 mg/dL, or HDL <40 mg/dL. Triglycerides 357 (H) 0 - 150 mg/dL [facility] HDL Cholesterol 29 (L) 40 - 110 mg/dL [facility] LDL Cholesterol Calculated 108 0 - 129 mg/dL [facility] Comment: LDL Cholesterol is the primary guide to therapy: LDL-cholesterol goal in high risk patients is <100 mg/dL and in very high risk patients is <70 mg/dL. VLDL-Cholesterol 71 (H) 0 - 30 mg/dL [facility] Cholesterol/HDL Ratio 7.3 (H) 0.0 - 5.0 [facility] Specimen Anatomical Collection Method Collection Time Receive d Time (Source) Location / / Volume Laterality 02/18/2008 9:45 AM 8 9:50 CDT AM CDT Boris Balderrama MD LABORATORY Performing Organization Address City/State/ZIP Code Phon e Number [facility] [address] [place] [address] [facility] (ABNORMAL) A.M.A. COMPREHENSIVE MET.PANEL (02/18/2008 9:45 AM CDT) athologist Signature Sodium 141 133 - 144 [place] mmol/L [facility] Potassium 4.5 3.4 - 5.3 [place] mmol/L [facility] Chloride 102 94 - 109 [place] mmol/L [facility] Carbon Dioxide 25 20 - 32 [place] mmol/L [facility] Anion Gap 14 6 - 17 [place] mmol/L [facility] Glucose 102 (H) 60 - 99 [place] mg/dL [facility] Urea Nitrogen 11 7 - 30 [place] mg/dL [facility] Creatinine 0.83 0.66 - [place] 1.25 mg/dL [facility] Comment: New IDMS-traceable calibration beginning 12/11/07 GFR Estimate >90 >60 mL/min/1.7m2 [facility] GFR Estimate If Black >90 >60 mL/min/1.7m2 [facility] Calcium 9.1 8.5 - 10.4 mg/dL [facility] Bilirubin Total 0.5 0.2 - 1.3 mg/dL [facility] Albumin 4.3 3.2 - 4.5 g/dL [facility] Protein Total 7.3 6.8 - 8.8 g/dL [facility] Comment: As of 07, reference range reflects plasma specimen type. Alkaline Phosphatase 55 40 - 150 U/L [facility] ALT 36 0 - 70 U/L [facility] LAB AST 29 0 - 55 U/L [facility] Specimen Anatomical Collection Method Collection Time Receive d Time (Source) Location / / Volume Laterality 02/18/2008 9:45 AM 8 9:50 CDT AM CDT Boris Balderrama MD LABORATORY Performing Organization Address City/State/ZIP Code Phon e Number [facility] [address] [place] [address] [facility] documented in this encounter Visit Diagnoses Diagnosis ALLERGY, UNSPECIFIED Allergy, unspecified not elsewhere class ified Unspecified essential hypertension Special screening for malignant neoplasm s of other sites documented in this encounter Care Teams Belt Brander Relationship Specialty Start Date End Date Boris Balderrama MD PCP - General 02/20/02 11/13/15 [address] [place] [address] documented as of this encounter
--- OUTSIDE RECORDS SUMMARY | 2022-06-04 07:30 | XMS_ITS | Encounter Summary ---
:1950 Author Organization [place] Address [address] [place] [address] Care Team Providers Name Role Phone Boris Balderrama MD Primary Care Provider Encounter Details Date Type Department Care Team Description 11/22/2009 Orders Only [facility] Boris Balderrama SIS NOT YET Clinic [place] MD DEFINED (Primary Dx) [address] [facility] [address] [place] [address] [phone] Social History Tobacco Use Types Packs/Day Years [...] Date/Time Associated Diagnosis Comme nts COLONOSCOPY Routine 11/22/2009 DIAGNOSIS NOT YET DEFINED documented in this encounter Results COLONOSCOPY (11/22/2009) Narrative This result has an attachment that is no t available. Boris Balderrama MD PROCEDURES documented in this encounter Visit Diagnoses Diagnosis DIAGNOSIS NOT YET DEFINED - Primary documented in this encounter Care Teams Interchange Agent Relationship Specialty Start Date End Date Boris Balderrama MD PCP - General 02/20/02 11/13/15 [address] [place], [place] [id number] documented as of this encounter
--- OUTSIDE RECORDS SUMMARY | 2022-06-04 07:30 | XMS_ITS | Encounter Summary ---
:1950 Author Organization [place] Address [address] [place] [address] Care Team Providers Name Role Phone Boris Balderrama MD Primary Care Provider [phone] Encounter Details Date Type Department Care Team Description 02/18/2006 Historic Results INTERFACED REPORT Interface, Gita sterling [...] Diagnosis Comme nts EKG 12 LEAD Routine 02/18/2006 2:20 PM Results f or this CDT procedure are i n the results section . documented in this encounter Results EKG 12 LEAD (02/18/2006 2:20 PM CDT) [facility] Method Time Signature Ventricular Rate 67 BPM RADIOLOGY RESULTS Atrial Rate [address] Interval 186 ms RADIOLOGY RESULTS QRS Duration 100 ms RADIOLOGY RESULTS QT 376 ms RADIOLOGY RESULTS QTc 397 ms RADIOLOGY RESULTS P [place] 65 degrees RADIOLOGY RESULTS R AXIS 23 degrees RADIOLOGY RESULTS T [place] 28 degrees RADIOLOGY RESULTS Interpretation ECG Sinus rhythm RADIOLOG Y Normal ECG RESULTS Specimen Anatomical Collection Method Collection Time Receive d Time (Source) Location / / Volume Laterality 02/18/2006 2:20 PM 6 8:38 CDT AM CDT Transcripton Interface ECG ORDERABLES Performing Organization Address City/State/ZIP Code Phon e Number RADIOLOGY RESULTS documented in this encounter Visit Diagnoses Not on filedocumented in this encounter Care Teams Assessment Coordinator Relationship Specialty Start Date End Date Boris Balderrama MD PCP - General 02/20/02 11/13/15 [address] [place] [address] documented as of this encounter
--- OUTSIDE RECORDS SUMMARY | 2022-06-04 07:30 | XMS_ITS | Encounter Summary ---
:1950 Author Organization [place] Address [address] [place] [address] Care Team Providers Name Role Phone Boris Balderrama MD Primary Care Provider Reason for Visit Reason Comments RECHECK f/u ER, was seen at [facility] on 09/04/2006--was sent via ambulance transport from [facility] c/o numbness left side and increased BP Encounter Details Date Type Department Care Team Description 09/05/2006 Office Visit [facility] [place], HYPERTENSI ON NOS Clinic [place] Peng Saini (Primary Dx) [address] Prateek Méndez MD [place], [place] [facility] [address] [place] [phone] [place], [place] [address] (Wo rk) Social History Tobacco Use Types Packs/Day Years Used Date Smoking Tobacco: Former Cigarettes 1.5 Comments: quit 09/2005 Alcohol Use Standard Drinks/Week Comments Yes 0 (1 standard drink = 0.6 oz pure alcoho l) rarely Sex Assigned at Date Recorded Not on file documented as of this encounter Last Filed Vital Signs Vital Sign Reading Time Taken Comments Blood Pressure 160/92 09/05/2006 10:30 AM MASTER DATA ANALYST Pulse 80 09/05/2006 10:30 AM MASTER DATA ANALYST Temperature - - Respiratory Rate 16 09/05/2006 10:30 AM MASTER DATA ANALYST Oxygen Saturation - - Inhaled Oxygen Concentration - - Weight 102.5 kg (226 lb) 09/05/2006 10:30 AM MASTER DATA ANALYST Height - - Body Mass Index 28.25 05/10/2006 1:30 PM CDT documented in this encounter Progress Notes Peng Kendrick - 09/05/2006 10:55 AM CST Subjective: Suresh Martinez is a 56 year old male with hypertension. He was seen at [facility] for elevated blood pressure and left sided arm numbness. He was seen and had a brain MRI which indicated scattered white matter changes from hypertension. Patient denies any exertional chest pain, dyspnea, palpitations, syncope, orthopnea, edema or paroxysmal nocturnal dyspnea. Current outpatient prescriptions Medication Sig ??? ATENOLOL 50 MG OR TABS ONE DAILY ??? LISINOPRIL-HYDROCHLOROTHIAZIDE 20-25 MG OR TABS ONE DAILY IN THE MORNING ??? TENORETIC 50 50-25 MG OR TABS one half pill daily ??? ASPIRIN 81 MG OR TABS 1 TABLET DAILY ??? EPINEPHRINE HCL (ANAPHYLAXIS) 1 MG/ML IJ SOLN 0.2 cc given now ??? EPIPEN 2-MAIK Use as Directed PRN Hypertension ROS: taking medications as instructed, no medication side effects noted, no TIA's, no chest pain on exertion, no dyspnea on exertion, no swelling of ankles, no orthostatic dizziness or lightheadedness, no orthopnea or paroxysmal nocturnal dyspnea. New concerns: as above. Objective: BP 160/92 Pulse 80 Resp 16 Wt 226 lbs (102.5kg) Appearance healthy, alert and cooperative. General exam BP noted to be moderately elevated today in office, S1, S2 normal, no gallop, no murmur, chest clear, no JVD, no HSM, no edema. Lab review: labs are reviewed from [facility] and normal. Assessment: Hypertension poorly controlled. Plan: Start LISINOPRIL-HYDROCHLOROTHIAZIDE 20-25 MG OR TABS and ATENOLOL 50 MG OR TABS as directed. He will stop Tenoretic. Reviewed diet, exercise and weight control, recommended sodium restriction. Peng Kendrick MD [facility] ER DATA ANALYST documented in this encounter Nursing Notes 09/05/2006 10:30 AM CST >> PARISA HERNADEZ 09/05/2006 10:41 am Patient presents with: RECHECK - f/u ER, was seen at [facility] on 09/04/2006--was sent via ambulance transport from [facility] c/o numbness left side and increased BP Initial BP 160/92 Pulse 80 Resp 16 Wt 226 lbs (102.5kg) Estimated Body mass index is 28.25 kg/(m^2) as calculated from: Height of 6' 3 (1.905 m) as of 05/10/06 Weight of 226 lbs (102.513 kg) as of this encounter. BP completed using cuff size large Parisa Hernadez/ALVIN documented in this encounter Plan of Treatment Not on filedocumented as of this encounter Visit Diagnoses Diagnosis Unspecified essential hypertension - Arianne alvarado documented in this encounter Care Teams Junior Systems Engineer Relationship Specialty Start Date End Date Boris Balderrama MD PCP - General 02/20/02 11/13/15 [address] [place] [address] documented as of this encounter
--- OUTSIDE RECORDS SUMMARY | 2022-06-04 07:30 | XMS_ITS | Encounter Summary ---
:1950 Author Organization [place] Address Counts include 234 beds at the [facility] [place] [address] Care Team Providers Name Role Phone Boris Balderrama MD Primary Care Provider [phone] Reason for Visit Reason Comments Refill Request refills of all medications a nd epi pen Encounter Details Date Type Department Care Team Description 03/28/2010 Office Visit [facility] Boris Balderrama Unspec ified Essential Hypertension; [facility] [place] ALLERGY, UNSPECIFIED [address] [place] [address] [phone] Social History Tobacco Use Types Packs/Day Years Used Date Smoking Tobacco: Former Cigarettes 1.5 Comments: quit 09/2005 Alcohol Use Standard Drinks/Week Comments Yes 0 (1 standard drink = 0.6 oz pure alcoho l) rarely Sex Assigned at Date Recorded Not on file documented as of this encounter Last Filed Vital Signs Vital Sign Reading Time Taken Comments Blood Pressure 138/80 03/28/2010 4:06 PM CDT Pulse 72 03/28/2010 4:06 PM CDT Temperature 37.2 ??C (98.9 ??F) 03/28/2010 4:06 PM CDT Respiratory Rate 18 03/28/2010 4:06 PM CDT Oxygen Saturation - - Inhaled Oxygen Concentration - - Weight 102.1 kg (225 lb) 03/28/2010 4:06 PM CDT Height 188 cm (6' 2) 03/28/2010 4:06 PM CDT Body Mass Index 28.89 03/28/2010 4:06 PM CDT documented in this encounter Progress Notes Conchis, Boris Kash - 03/28/2010 4:20 PM CDT SUBJECTIVE: CC: Suresh Martinez is a 60 year old male who presents for follow up of bp and bee sting allergy HPI: feels great, he did run out of pills a few days ago, Body mass index is 28.89 kg/(m^2). PROBLEM LIST: Patient Active Problem List Diagnoses Code ??? ALLERGY, UNSPECIFIED 995.3 ??? ALLERGIC RHINITIS NOS 477.9 ??? HYPERTENSION NOS 401.9 ??? BENIGN NEOPLASM LG BOWEL 211.3 PAST MEDICAL HISTORY: Past Medical History Diagnosis Date ??? Unspecified Essential Hypertension PAST SURGICAL HISTORY: No past surgical history on file. CURRENT MEDICATIONS: Current outpatient prescriptions Medication Sig ??? ATENOLOL 50 MG PO TABS ONE DAILY ??? LISINOPRIL-HYDROCHLOROTHIAZIDE 20-25 MG PO TABS ONE DAILY IN THE MORNING ??? EPIPEN 0.3 MG/0.3ML IJ ERWIN 1 TIME ONLY ??? ASPIRIN 81 [...] changes in mood or affect EXAM: BP 140/80 Pulse 72 Temp(Src) 98.9 ??F (37.2 ??C) (Oral) Resp 18 Ht 6' 2 (1.88 m) Wt 225 lb (102.059 kg) GENERAL APPEARANCE: healthy, alert and no [...] or masses and bowel sounds normal ASSESSMENT/PLAN 1. Unspecified Essential Hypertension (401.9) 2. ALLERGY, UNSPECIFIED (995.3) Discussed diet, weight and regular follow up I have discussed with patient the risks, benefits, medications, treatment options and modalities. I have instructed the patient to call or schedule a follow-up appointment if any problems or failureto improve. documented in this encounter Nursing Notes 03/28/2010 4:15 PM CDT >> PENNY Auguste Mar 28, 2010 4:10 PM Patient presents with: Refill Request - refills of all medications and epi pen Initial BP 140/80 Pulse 72 Temp(Src) 98.9 ??F (37.2 ??C) (Oral) Resp 18 Ht 6' 2 (1.88 m) Wt 225 lb (102.059 kg) Estimated Body mass index is 28.89 kg/(m^2) as calculated from the following: Height as of this encounter: 6' 2(1.88 m). Weight as of this encounter: 225 lb(102.059 kg). BP completed using cuff size large Right Arm Health Maintenance reviewed - Yes: Tobacco Verified: Yes Payor/Verify RX Benefits/Reconcile Disp Completed if allowed: Yes Family History Updated: Yes MyChart Offered: Yes Immunizations Up to Date: Yes Penny Schulz LPN documented in this encounter Plan of Treatment Not on filedocumented as of this encounter Procedures Procedure Name Priority Date/Time Associated Diagnosis Comme nts HCL COMPREHENSIVE Routine 03/28/2010 4:20 Unspecified Results for this METABOLIC PANEL PM CDT Essential procedure ar e in Hypertension the results section. documented in this encounter Results A.M.A. COMPREHENSIVE MET.PANEL (03/28/2010 4:20 PM CDT) athologist Signature Sodium 141 133 - 144 [facility]L [facility] Potassium 4.3 3.4 - 5.3 [place] mmol/L [facility] Chloride 103 94 - 109 [place] mmol/L [facility] Carbon Dioxide 25 20 - 32 [place] mmol/L [facility] Anion Gap 13 6 - 17 [facility] mmol/L [facility] Glucose 87 60 - 99 [place] mg/dL CLINIC LAB Urea Nitrogen 21 7 - 30 [facility] mg/dL [facility] Creatinine 0.90 0.66 - [place] 1.25 mg/dL CLINIC LAB Comment: New IDMS-traceable calibration beginning 12/11/07 GFR Estimate 87 >60 mL/min/1.7m2 [facility] GFR Estimate If Black >90 >60 mL/min/1.7m2 [facility] Calcium 9.0 8.5 - 10.4 mg/dL [facility] Bilirubin Total 0.7 0.2 - 1.3 mg/dL [facility] Albumin 4.3 3.3 - 4.9 g/dL [facility] Comment: Reference range changed on 04/13. Protein Total 7.2 6.8 - 8.8 g/dL [facility] Comment: As of 07, reference range reflects plasma specimen type. Alkaline Phosphatase 76 40 - 150 U/L [facility] ALT 34 0 - 70 U/L [facility] AST 38 0 - 55 U/L [facility] LAB Specimen Anatomical Collection Method Collection Time Receive d Time (Source) Location / / Volume Laterality 03/28/2010 4:20 PM 0 4:22 CDT PM CDT Boris Balderrama MD LABORATORY Performing Organization Address City/State/ZIP Code Phon e Number [facility] [address] [place] [address] [facility] documented in this encounter Visit Diagnoses Diagnosis Unspecified essential hypertension ALLERGY, UNSPECIFIED Allergy, unspecified not elsewhere class ified documented in this encounter Care Teams Line Installer Repairer Relationship Specialty Start Date End Date Boris Balderrama MD PCP - General 02/20/02 11/13/15 [address] [place] [address] documented as of this encounter
--- OUTSIDE RECORDS SUMMARY | 2022-06-04 07:30 | XMS_ITS | Encounter Summary ---
:1950 Author Organization [place] Address [address] [facility] [place] [address] Care Team Providers Name Role Phone Boris Balderrama MD Primary Care Provider [phone] Reason for Visit [facility] Physical Therapy (Routine) - Closed Specialty Diagnoses / Procedures Referred By Contact Refer red To Contact Martha [facility] [address] [place] [address] Referral ID Status Reason Start Date Expiration Date Visits Requ ested Visits Authorized LBP/FV Closed 04/11/2005 07/11/2005 12 5 Encounter Details Date Type Department Care Team Description 04/11/2005 Therapy Visit [place] [facility] Leonora Villanueva i amLUMBAGO; Medicine - [place] [facility] iamAC CIDENT ON INDUSTR PREMISES; Physical Therapy iamACCID FROM OVEREXERTION [address] [place], [place] [address] Social History Tobacco Use Types Packs/Day Years Used Date Smoking Tobacco: Every Day Cigarettes 1.5 Alcohol Use Standard Drinks/Week Comments Yes 0 (1 standard drink = 0.6 oz pure alcoho l) rarely Sex Assigned at Date Recorded Not on file documented as of this encounter Progress Notes Leonora Santos - 04/11/2005 9:57 AM CDT Initial evaluation was completed. Please refer to the daily flowsheet for treatment today. documented in this encounter Plan of Treatment Not on filedocumented as of this encounter Procedures Procedure Name Priority Date/Time Associated Diagnosis Comme nts ZZC ULTRASOUND THERAPY Routine 04/11/2005 9:59 AM iamLUM BAGO CDT iamACCIDENT ON INDUSTR PREMISES iamACCID FROM OVEREXERTION [facility] MECHANICAL Routine 04/11/2005 9:59 AM iamLUMBAGO TRACTION THERAPY CDT iamACCIDENT ON INDUSTR PREMISES iamACCID FROM OVEREXERTION [facility] HOT OR COLD PACKS Routine 04/11/2005 9:59 AM iamLUMB AGO THERAPY CDT iamACCIDENT ON INDUSTR PREMISES iamACCID FROM OVEREXERTION documented in this encounter Visit Diagnoses Diagnosis iamLUMBAGO Lumbago iamACCIDENT ON INDUSTR PREMISES Place of occurrence, industrial places a nd premises iamACCID FROM OVEREXERTION Overexertion and strenuous and repetitiv e movements or loads documented in this encounter Care Teams Marketing Production Coordinator Relationship Specialty Start Date End Date Boris Balderrama MD PCP - General 02/20/02 11/13/15 [address] [place] [address] documented as of this encounter
--- OUTSIDE RECORDS SUMMARY | 2022-06-04 07:30 | XMS_ITS | Encounter Summary ---
:1950 Author Organization [place] Address [address] [place] [address]. [place] [address] Care Team Providers Name Role Phone Boris Balderrama MD Primary Care Provider [phone] Reason for Visit Reason Comments Medication Problem Atenolol Encounter Details Date Type Department Care Team Description 05/10/2006 Office Visit [facility] Boris Balderrama [facility] Clinic LargoLucho Hewitt MD (Primary Dx) [address] [place] [id number] [phone] Social History Tobacco Use Types Packs/Day Years Used Date Smoking Tobacco: Former Cigarettes 1.5 Comments: quit 09/2005 Alcohol Use Standard Drinks/Week Comments Yes 0 (1 standard drink = 0.6 oz pure alcoho l) rarely Sex Assigned at Date Recorded Not on file documented as of this encounter Last Filed Vital Signs Vital Sign Reading Time Taken Comments Blood Pressure 150/92 05/10/2006 1:30 PM CDT Pulse - - Temperature - - Respiratory Rate - - Oxygen Saturation - - Inhaled Oxygen Concentration - - Weight 99.8 kg (220 lb) 05/10/2006 1:30 PM CDT Height 190.5 cm (6' 3) 05/10/2006 1:30 PM CDT Body Mass Index 27.5 05/10/2006 1:30 PM CDT documented in this encounter Progress Notes Boris Balderrama - 05/10/2006 2:08 PM CDT Subjective: Suresh Martinez is a 56 year old male with hypertension. Current outpatient prescriptions Medication Sig ??? TENORETIC 50 50-25 MG OR TABS [...] exertion, no swelling of ankles. New concerns: got liteheaded on a full pill of tenoretic 50. Objective: BP 150/92 Ht 6' 3 (1.91m) Wt 220 lbs (99.8kg) Appearance healthy, alert and cooperative. General exam BP noted to be well controlled today in office, S1, S2 normal, no gallop, no murmur, chest clear, no JVD, no HSM, no edema. Lab review: labs are reviewed, up to date and normal. Assessment: Hypertension control uncertain. One half pill for dose adjust Plan: orders and follow up as documented in [facility], reviewed diet, exercise and weight control. documented in this encounter Nursing Notes 05/10/2006 1:30 PM CDT >> LALI HOLLEY 05/10/2006 1:58 pm Patient presents with: Medication Problem - Atenolol Initial BP 150/92 Ht 6' 3 (1.91m) Wt 220 lbs (99.8kg) Body mass index is 27.50 kg/(m^2).. BP completed using cuff size large Lali Holley CMA documented in this encounter Plan of Treatment Not on filedocumented as of this encounter Visit Diagnoses Diagnosis Unspecified essential hypertension - Arianne alvarado documented in this encounter Care Teams Asphalt Patcher Relationship Specialty Start Date End Date Boris Balderrama MD PCP - General 02/20/02 11/13/15 [address] [place] [address] documented as of this encounter
--- OUTSIDE RECORDS SUMMARY | 2022-06-04 07:30 | XMS_ITS | Encounter Summary ---
:1950 Author Organization [place] Address [address] [place] [address] Care Team Providers Name Role Phone Boris Balderrama MD Primary Care Provider [phone] Reason for Visit Reason Comments Hypertension elevated bp, complaining of tingling in left hand, and left leg started last night Encounter Details Date Type Department Care Team Description 09/04/2006 [facility] Hypertensi on (elevated Health/Nurse Visit Clinic [place] bp, complaining of ... 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 Pt's boss, and brother called to notify. Em Juarez RGermanN. >> NEREYDA BOUDREAUX 09/04/2006 11:27 am Pt walked into clinic today complaining of puffy left eye, numbness, and tingling in his left arm, and left leg, and some blurred vision. Pt states he was working last night, and the staff had noticed that he had a puffy left eye , so they checked his bp, and it was elevated. Unsure what the value was, but told it was high. Pt didn't think anything of it, because he thought he was just tired. This morning pt woke up with the numbness, tingling on left side, and blurred vision. Pt is alert, and oriented x 3, speech is normal, and gait. After discussing with BHARAT , who evaluated pt, 911 was called for transportation to [facility], Oxygen placed per nc placed, and ASA 325mg given. Em Juarez R.N. documented in this encounter Plan of Treatment Not on filedocumented as of this encounter Visit Diagnoses Diagnosis Unspecified essential hypertension - Arianne alvarado documented in this encounter Care Teams Ferry Pilot Relationship Specialty Start Date End Date Boris Balderrama MD PCP - General 02/20/02 11/13/15 [address] [place] [address] documented as of this encounter
--- OUTSIDE RECORDS SUMMARY | 2022-06-04 07:30 | XMS_ITS | Encounter Summary ---
:1950 Author Organization [place] Address [facility] [place] [address] Care Team Providers Name Role Phone Boris Balderrama MD Primary Care Provider [phone] Reason for Visit Reason Comments Recheck Medication for bp Refill Request *_* Health Care Directive *_* PT will bring copy for joann law. Encounter Details Date Type Department Care Team Description 09/06/2011 Office Visit [facility] Boris Balderrama Unspec ified essential hypertension (Primary Dx); Clinic ReadingLucho Hewitt MD Tobacco dependence [address] [place] [id number] Social History Tobacco Use Types Packs/Day Years Used Date Smoking Tobacco: Every Day Cigarettes 1 Smokeless Tobacco: Never Comments: quit 09/2005 Alcohol Use Standard Drinks/Week Comments Yes 0 (1 standard drink = 0.6 oz pure alcoho l) rarely Sex Assigned at Date Recorded Not on file documented as of this encounter Last Filed Vital Signs Vital Sign Reading Time Taken Comments Blood Pressure 176/92 09/06/2011 10:28 AM DIRECTOR OF PROGRAMMING Pulse 81 09/06/2011 10:28 AM DIRECTOR OF PROGRAMMING Temperature 36.6 ??C (97.9 ??F) 09/06/2011 10:28 AM DIRECTOR OF PROGRAMMING Respiratory Rate 12 09/06/2011 10:28 AM DIRECTOR OF PROGRAMMING Oxygen Saturation 98% 09/06/2011 10:28 AM DIRECTOR OF PROGRAMMING Inhaled Oxygen Concentration - - Weight 96.6 kg (213 lb) 09/06/2011 10:28 AM DIRECTOR OF PROGRAMMING Height 187.8 cm (6' 1.93) 09/06/2011 10:28 AM DIRECTOR OF PROGRAMMING Body Mass Index 27.4 09/06/2011 10:28 AM DIRECTOR OF PROGRAMMING documented in this encounter Progress Notes Kristin Busby - 09/06/2011 10:37 AM CST SUBJECTIVE: Suresh Martinez is a 61 year old male seen for a follow up visit; he has hypertension. Problems taking medications regularly? YES: ran out and just never refilled Side effects? 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 YES: 3 meals/day. Do you count carbs? NO Kristin Busby CMA (Staff Signature) Other patient concerns: NONE BP Readings from Last 3 Encounters: 09/06/11 204/92 03/28/10 138/80 03/09/09 180/88 BP: 204 92 Health maintenance reviewed and appropriate orders placed? Yes Kristin Busby CMA No results found for this basename: A1C Recent Labs Lab Test 02/18/08 0945 12/07/04 1015 ??? CHOL 208* 208* ??? HDL 29* 23* ??? LDL 108 116 ??? TRIG 357* 346* ??? CHOLHDLRATIO 7.3* 9.1* Wt Readings from Last 3 Encounters: 09/06/11 213 lb (96.616 kg) 03/28/10 225 lb (102.059 kg) 03/09/09 218 lb (98.884 kg) Current outpatient prescriptions Medication Sig ??? ATENOLOL 50 MG PO TABS ONE DAILY ??? EPIPEN 0.3 MG/0.3ML IJ ERWIN 1 TIME ONLY ??? ASPIRIN 81 MG OR TABS 1 TABLET DAILY [facility] REVIEW OF SYSTEMS: Cardiovascular ROS - taking medications as instructed, no medication side effects noted, no TIA's, no chest pain on exertion, no dyspnea on exertion, no swelling of ankles EXAM: Vitals: BP 204/92 Pulse 81 Temp(Src) 97.9 ??F (36.6 ??C) (Oral) Resp 12 Ht 6' 1.93 (1.878 m) Wt 213 lb (96.616 kg) BMI 27.40 kg/m2 SpO2 98% BMIE= Body mass index is 27.40 kg/(m^2). GENERAL APPEARANCE: alert and no acute distress PSYCH: mentation appears normal and affect normal/bright EYES: EOMI, fundoscopic exam normal HENT: ear canals and TM's normal and nose and mouth without ulcers or lesions NECK: No carotid bruits. RESP: lungs clear to auscultation - no rales, rhonchi or wheezes CV: regular rate and rhythm, normal S1 S2, no S3 or S4 and no murmur, click or rub - EXT: no cyanosis or edema in lower extremities SKIN: no venous stasis changes Foot Exam: no ASSESSMENT/PLAN: Hypertension associated with: Poor compliance, goes off meds every year or so but vows to do better this time 401.9 Unspecified essential hypertension (primary encounter diagnosis) Comment: Plan: lisinopril-hydrochlorothiazide (PRINZIDE,ZESTORETIC) 20-25 MG per tablet, atenolol (TENORMIN) 50 MG tablet 305.1J Tobacco dependence Comment: Plan: buPROPion (WELLBUTRIN SR) 150 MG 12 hr tablet Discussed smoking meds, nicotine supplements, settled no zyban check for coverage 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 Initial BP 204/92 Pulse 81 Temp(Src) 97.9 ??F (36.6 ??C) (Oral) Resp 12 Ht 6' 1.93 (1.878 m) Wt 213 lb (96.616 kg) BMI 27.40 kg/m2 SpO2 98% Estimated Body mass index is 27.40 kg/(m^2) ascalculated from the following: Height as of this encounter: 6' 1.925(1.878 m). Weight as of this encounter: 213 lb(96.616 kg).. BP completed using cuff size: large. Kristin Busby CMA documented in this encounter Plan of Treatment Not on filedocumented as of this encounter Visit Diagnoses Diagnosis Unspecified essential hypertension - Arianne alvarado Tobacco dependence Tobacco use disorder documented in this encounter Care Teams Visual Education Director Relationship Specialty Start Date End Date Boris Balderrama MD PCP - General 02/20/02 11/13/15 [address] [place] [address] documented as of this encounter
--- OUTSIDE RECORDS SUMMARY | 2022-06-04 07:31 | XMS_ITS | Encounter Summary ---
:1950 Author Organization [place] Address [address] [place] [address]. [place] [address] Care Team Providers Name Role Phone Boris Balderrama MD Primary Care Provider Reason for Referral - Closed Specialty Diagnoses / Procedures Referred By Contact Refer red To Contact Diagnoses Routine general medical examination at a health [place] [id number] [place] [phone] Referral ID Status Reason Start Date Expiration Date Visits Requ ested Visits Authorized [id number] Closed 11/17/2004 08/11/2011 1 1 Reason for Visit Reason Comments Physical Encounter Details Date Type Department Care Team Description 11/17/2004 Office Visit [facility] Boris Balderrama FOR TETANUS/DIPHTERIA (Primary Dx); Clinic Kindra Hewitt MD BENIGN HYPERTENSION; [address] [place] [address] [place] [address] [phone] Social History Tobacco Use Types Packs/Day Years Used Date Smoking Tobacco: Every Day Cigarettes 1.5 Alcohol Use Standard Drinks/Week Comments Yes 0 (1 standard drink = 0.6 oz pure alcoho l) rarely Sex Assigned at Date Recorded Not on file documented as of this encounter Last Filed Vital Signs Vital Sign Reading Time Taken Comments Blood Pressure 156/88 11/17/2004 10:30 AM CDT Pulse 64 11/17/2004 10:30 AM CDT Temperature 36.6 ??C (97.9 ??F) 11/17/2004 10:30 AM CDT Respiratory Rate - - Oxygen Saturation - - Inhaled Oxygen Concentration - - Weight 93 kg (205 lb) 11/17/2004 10:30 AM CDT Height 182.9 cm (6') 11/17/2004 10:30 AM CDT Body Mass Index 27.8 11/17/2004 10:30 AM CDT documented in this encounter Progress Notes Boris Balderrama - 11/17/2004 10:44 AM CDT Subjective: Suresh Martinez is a 54 year old male with hypertension.Had diagnosis a few years ago then got away from treatment. He had a heavy head afew days ago and was found to be over 200 and then started on atenalol in the [place] ER. Here for follow up, wants to get physical in next 45 days instead of today. Feeling well now, wants to optimize his health Current outpatient prescriptions: ATENOLOL 25 MG OR TABS 1/2 TABLET DAILY EPIPEN 1:1000 IM ERWIN 1 TIME ONLY Hypertension ROS: taking medications as instructed, no medication side effects noted, no TIA's, no chest pain on exertion, no dyspnea on exertion, no swelling of ankles. New concerns: wants physical. Objective: BP 156/88 Pulse 64 Temp (Src) 97.9 (Oral) Ht 6' 0 (1.83m) Wt 205 lbs (93.0kg) Appearance healthy, alert and cooperative. General exam BP noted to be well controlled today in office, S1, S2 normal, no gallop, no murmur, chest clear, no JVD, no HSM, no edema. Lab review: labs are reviewed, up to date and normal. Assessment: Hypertension well controlled, stable. Plan: current treatment plan is effective, no change in therapy. documented in this encounter Nursing Notes 11/17/2004 10:30 AM CDT >> LALI HOLLEY 11/17/2004 10:31 am Suresh Martinez presents for physical exam. Initial BP 156/88 Pulse 64 Temp (Src) 97.9 (Oral) Ht 6' 0 (1.83m) Wt 205 lbs (93.0kg) Body Mass Index is 27.80 kg/(m^2). . BP completed using cuff size: large. Lali Holley CMA documented in this encounter Plan of Treatment Not on filedocumented as of this encounter Visit Diagnoses Diagnosis Need for prophylactic vaccination with t etanus-diphtheria (Td) - Primary Essential hypertension, benign Routine general medical examination at a health care facility documented in this encounter Care Teams Spindle Frame Carver Relationship Specialty Start Date End Date Boris Balderrama MD PCP - General 02/20/02 11/13/15 [address] [place] [address] documented as of this encounter
--- OUTSIDE RECORDS SUMMARY | 2022-06-04 07:31 | XMS_ITS | Encounter Summary ---
:1950 Author Organization [place] Address [address] [place] [address] Care Team Providers Name Role Phone Boris Balderrama MD Primary Care Provider Encounter Details Date Type Department Care Team Description 11/08/2004 Historic Results INTERFACED REPORT Interface, Gita sterling MD Social History Tobacco Use Types Packs/Day Years Used Date Smoking Tobacco: Never Assessed Sex Assigned at Date Recorded Not on file documented as of this encounter Plan of Treatment Not on filedocumented as of this encounter Procedures Procedure Name Priority Date/Time Associated Diagnosis Comme nts EKG 12 LEAD Routine 11/08/2004 1:04 PM Results f or this OREMAN procedure are i n the results section . documented in this encounter Results EKG 12 LEAD (11/08/2004 1:04 PM OREMAN) [facility] Method Time Signature Ventricular Rate 76 BPM RADIOLOGY RESULTS Atrial Rate 76 BPM RADIOLOGY RESULTS SD Interval 178 ms RADIOLOGY RESULTS QRS Duration 94 ms RADIOLOGY RESULTS QT 352 ms RADIOLOGY RESULTS QTc 396 ms RADIOLOGY RESULTS P Peck 75 degrees RADIOLOGY RESULTS R AXIS 24 degrees RADIOLOGY RESULTS T Peck 23 degrees RADIOLOGY RESULTS Interpretation ECG SINUS RHYTHM RADIOLOG Y NORMAL ECG RESULTS Specimen Anatomical Collection Method Collection Time Receive d Time (Source) Location / / Volume Laterality 11/08/2004 1:04 PM 5 6:40 OREMAN AM OREMAN Transcripton Interface ECG ORDERABLES Performing Organization Address City/State/ZIP Code Phon e Number RADIOLOGY RESULTS documented in this encounter Visit Diagnoses Not on filedocumented in this encounter Care Teams Regeneration Operator Relationship Specialty Start Date End Date Boris Balderrama MD PCP - General 02/20/02 11/13/15 [address] [place] [address] documented as of this encounter
--- OUTSIDE RECORDS SUMMARY | 2022-06-04 07:31 | XMS_ITS | Encounter Summary ---
:1950 Author Organization [place] Address [address] [place] [address] Care Team Providers Name Role Phone Boris Balderrama MD Primary Care Provider [phone] Encounter Details Date Type Department Care Team Description 11/08/2004 Historic Results [facility] [address] [place] [address] [place] [address] (Wo rk) Social History Tobacco Use Types Packs/Day Years Used Date Smoking Tobacco: Never Assessed Sex Assigned at Date Recorded Not on file documented as of this encounter Plan of Treatment Not on filedocumented as of this encounter Procedures Procedure Name Priority Date/Time Associated Comments Diagnosis TROPONIN I Routine 11/08/2004 1:10 PM Results f or this POST TENSIONING IRONWORKER HELPER procedure are i n the results section. HEMOGRAM DIFFERENTIAL STAT 11/08/2004 1:10 PM Results for this AND PLATELET POST TENSIONING IRONWORKER HELPER procedure are i n the results section. BASIC METABOLIC PANEL STAT 11/08/2004 1:10 PM Results for this POST TENSIONING IRONWORKER HELPER procedure are i n the results section. documented in this encounter Results Hemogram differential and platelet (11/08/2004 1:10 PM POST TENSIONING IRONWORKER HELPER) [facility] Method Time Signature MCV 87 78 - 100 [place] fl MCH 29.8 26.5 - [facility] 33.0 pg MCHC 34.2 32.0 - [facility] 36.0 g/dL RDW 13.8 10.0 - [facility] 15.0 % WBC 7.5 4.0 - [facility] 11.0 10e9/L RBC Count 5.26 4.4 - 5.9 [facility] 10e12/L Hemoglobin 15.7 13.3 - M[facility] 17.7 g/dL Hematocrit 45.9 40.0 - [facility] 53.0 % % Neutrophils 63 40 - 75 % MISYS % Lymphocytes 26 20 - 48 % MIS[facility] % Monocytes 7 0 - 12 % [facility] % Eosinophils 3 0 - 6 % [facility] % Basophils 1 0 - 2 % [facility] Platelet Count 294 150 - 450 [facility] 10e9/L Absolute 4.7 1.6 - 8.3 [facility] Neutrophil 10e9/L Absolute 2.0 0.8 - 5.3 [facility] Lymphocytes 10e9/L Absolute 0.5 0.0 - 1.3 [facility] Monocytes 10e9/L Absolute 0.2 0.0 - 0.7 [facility] Eosinophils 10e9/L Absolute 0.1 0.0 - 0.2 [facility] Basophils 10e9/L Diff Method Automated [facility] Method Specimen Anatomical Collection Method Collection Time Receive d Time (Source) Location / / Volume Laterality 11/08/2004 1:10 PM 5 1:17 POST TENSIONING IRONWORKER HELPER PM POST TENSIONING IRONWORKER HELPER Jony [facility]ez MD LAB - BLOOD ORDERABLES Performing Organization Address City/State/ZIP Code Phon e Number [facility] Basic metabolic panel (11/08/2004 1:10 PM POST TENSIONING IRONWORKER HELPER) P athologist Signature Sodium 139 133 - 144 [place] mmol/L Potassium 3.7 3.4 - 5.3 [place] mmol/L Chloride 106 94 - 109 [place] mmol/L Carbon Dioxide 24 20 - 32 [place] mmol/L Glucose 89 60 - 110 [place] mg/dL Urea Nitrogen 15 7 - 30 [place] mg/dL Creatinine 0.84 0.80 - [facility] 1.50 mg/dL GFR Estimate >80 >60 [place] mL/min/1.7 m2 GFR Estimate If >80 >60 [place] Black mL/min/1.7 m2 Calcium 9.3 8.5 - 10.4 [place] mg/dL Anion Gap 9 6 - 17 [place] mmol/L Specimen Anatomical Collection Method Collection Time Receive d Time (Source) Location / / Volume Laterality 11/08/2004 1:10 PM 5 1:17 POST TENSIONING IRONWORKER HELPER PM POST TENSIONING IRONWORKER HELPER Jony Cortez MD LAB - BLOOD ORDERABLES Performing Organization Address City/State/RUST Code Phon e Number [facility] Troponin I (11/08/2004 1:10 PM POST TENSIONING IRONWORKER HELPER) P athologist Signature Troponin I <0.07 0.00 - 0.40 [place] ug/L Specimen Anatomical Collection Method Collection Time Receive d Time (Source) Location / / Volume Laterality 11/08/2004 1:10 PM 5 2:42 POST TENSIONING IRONWORKER HELPER PM POST TENSIONING IRONWORKER HELPER Jony Cortez MD LAB - BLOOD ORDERABLES Performing Organization Address City/State/[facility] Phon e Number [place] documented in this encounter Visit Diagnoses Not on filedocumented in this encounter Care Teams Manager Battery Relationship Specialty Start Date End Date Boris Balderrama MD PCP - General 02/20/02 11/13/15 [address] [place] [address] documented as of this encounter
--- OUTSIDE RECORDS SUMMARY | 2022-06-04 07:31 | XMS_ITS | Encounter Summary ---
:1950 Author Organization [facility] Address [address] [place] [address]. [place] [address] Care Team Providers Name Role Phone Boris Balderrama MD Primary Care Provider Reason for Visit Reason Comments Refill Request epipen Encounter Details Date Type Department Care Team Description 12/17/2003 Refill [facility] Michael Hernandez MD Refill Request (epipen) [place] [id number] [place] [id number] [place] [id number] [phone] Social History Tobacco Use Types Packs/Day Years Used Date Smoking Tobacco: Never Assessed Sex Assigned at Date Recorded Not on file documented as of this encounter Miscellaneous Notes Telephone Encounter - 12/17/2003 11:59 PM CDT >> VAZQUEZ REEVES Fri December 17, 2003 1:42 PM >> CALL RECEIVED. Contact: last refill 06/01/01. Last clinic visit long time, before epic. Deidra Reeves LPN documented in this encounter Plan of Treatment Not on filedocumented as of this encounter Visit Diagnoses Not on filedocumented in this encounter Care Teams Pulmonary Nurse Practitioner Relationship Specialty Start Date End Date Boris Balderrama MD PCP - General 02/20/02 11/13/15 [id number] [place] [address] documented as of this encounter
[2022-06-04 08:02] LABS: Hemoglobin A1C* 6.5 % (0-5.6)
[2022-06-04 10:34] LABS: Albumin* 4.3 g/dL (3.3-5.0); Chloride* 102 mmol/L (96-114)
[2022-06-04 10:35] LABS: Potassium* 4.4 mmol/L (3.6-5.1); Sodium* 139 mmol/L (135-149)
[2022-06-04 10:37] LABS: Alkaline Phosphatase* 67 U/L (40-150); Aspartate Amino Transferase* 21 U/L (12-35); Bilirubin Total* 0.7 mg/dL (0.1-1.5); Blood Urea Nitrogen* 18 mg/dL (7-30); Carbon Dioxide* 27 mmol/L (20-32); Cholesterol* 160 mg/dL (90-199); Creatinine* 0.9 mg/dL (0.5-1.5); Estimated Glomerular Filt Rate 92 ml/min; Glucose* 135 mg/dL (60-115); Total Protein* 6.6 g/dL (6.0-8.3); Triglycerides* 175 mg/dL (40-149)
[2022-06-04 10:38] LABS: Alanine Aminotransferase* 18 U/L (4-50); Calcium* 9.6 mg/dL (8.4-10.6); HDL Cholesterol* 30 mg/dL (>=40); LDL Cholesterol Calculated 95 mg/dL (<100)
[2022-06-04 11:07] LABS: PSA Screen* 4.15 ng/mL (0.10-4.00)
== END 2022-06-04 14:17 | disposition home or self-care (01) ==
PROVIDERS: PCP Family Medicine; Visit Provider Family Medicine
DX: E11.9 Type 2 diabetes mellitus without complications (principal); I10 Essential (primary) hypertension; E78.5 Hyperlipidemia, unspecified; Z12.5 Encounter for screening for malignant neoplasm of prostate
CPT/HCPCS: 80053; 80061; 82043; 82570; 83036; 84153

== ENCOUNTER 2022-10-23 08:34 | Emergency (ER) | payer MEDICARE, BC, SELFPAY ==
[2022-10-23] VITALS (29 sets, daily range): BP systolic 181–222; BP diastolic 84–101; PULSE 60–80; RESP 16–18; TEMP 36.6–36.8; O2SAT 95–99; BMI 25.0
--- NOTE | 2022-10-23 09:18 | CRLHL7_ITS ---
For Patients: As a result of the Century Cures Act, medical imaging exams and procedure reports are released immediately into your electronic medical record. You may view this report before your referring provider. If you have questions, please contact your health care provider. INDICATION: Acute stroke, dizziness, previous right carotid endarterectomy. TECHNIQUE: CTA head with contrast bolus tracking and 3D MIP reconstruction. FINDINGS: There is scattered intracranial atherosclerotic disease with mild stenoses of the carotid siphons and focal severe intracranial left vertebral artery stenosis. The intracranial right vertebral artery and basilar artery are widely patent. There is otherwise normal opacification of the intracranial vasculature. There is no large vessel occlusion. No aneurysm is identified. 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 No large vessel occlusion. Please note that all CT scans at this facility use dose modulation, iterative reconstruction, and/or weight-based dosing when appropriate to reduce radiation dose to as low as reasonably achievable. Dictated by Freddy Ball MD @ 10/23/2022 12:28:55 PM (Electronically Signed)
--- NOTE | 2022-10-23 09:18 | CRLHL7_ITS ---
For Patients: As a result of the Century Cures Act, medical imaging exams and procedure reports are released immediately into your electronic medical record. You may view this report before your referring provider. If you have questions, please contact your health care provider. INDICATION: Dizziness. TECHNIQUE: CT of the head without contrast. Coronal and sagittal reformats are included. COMPARISON: Head CT from 04/09/2020. FINDINGS: No CT evidence of acute cortical infarct. No loss of cintron white matter differentiation. No hyperdense vessels to suggest intracranial thrombus. No acute intracranial hemorrhage. No mass effect or midline shift. No hydrocephalus or extra-axial collections. Small chronic lacunar infarct within the right putamen. Patchy white matter hypoattenuation, typical for microvascular ischemic changes. No acute osseous abnormalities. Mastoid air cells and paranasal sinuses are clear. Normal soft tissues. IMPRESSION: IMPRESSION:1. No CT evidence of acute cortical infarct. No acute intracranial hemorrhage. No other acute intracranial findings. Stable chronic right basal ganglia lacunar infarct. Please note that all CT scans at this facility use dose modulation, iterative reconstruction, and/or weight-based dosing when appropriate to reduce radiation dose to as low as reasonably achievable. Dictated by Daniel Valdez MD @ 10/23/2022 11:56:22 AM (Electronically Signed)
--- NOTE | 2022-10-23 09:18 | CRLHL7_ITS ---
For Patients: As a result of the Century Cures Act, medical imaging exams and procedure reports are released immediately into your electronic medical record. You may view this report before your referring provider. If you have questions, please contact your health care provider. INDICATION: Acute stroke, dizziness, previous right carotid endarterectomy. TECHNIQUE: CTA neck with contrast bolus tracking and 3D MIP reconstruction. FINDINGS: There are postoperative findings of a right carotid endarterectomy without residual or recurrent stenosis. There is left carotid atherosclerosis without significant stenosis. There is scattered vertebral atherosclerosis with mild stenoses. There is no evidence for dissection. The soft tissues of the neck are within normal limits. The cervical spine is in normal alignment. IMPRESSION: 1. Right CEA without residual or recurrent stenosis. 2. Left carotid atherosclerosis without significant stenosis. Please note that all CT scans at this facility use dose modulation, iterative reconstruction, and/or weight-based dosing when appropriate to reduce radiation dose to as low as reasonably achievable. Dictated by Freddy Ball MD @ 10/23/2022 12:32:02 PM (Electronically Signed)
--- NOTE | 2022-10-23 09:34 | CRLHL7_ITS ---
For Patients: As a result of the Cures Act, medical imaging exams and procedure reports are released immediately into your electronic medical record. You may view this report before your referring provider. If you have questions, please contact your health care provider. Indication: Dizziness. Technique: Multiplanar, multisequence MRI of the brain was performed without intravenous contrast. Comparison: CT head earlier the same day. MR brain 06/27/2020. Findings: The corpus callosum, pituitary gland and clivus appear intact. Mild degenerative change visualized upper cervical spine. There is no restricted diffusion. No intracranial hemorrhage. The ventricles are proportionate to the cerebral sulci. The 4th ventricle appears midline. The basal cisterns appear patent. No abnormal extra-axial fluid collection identified. Mild parenchymal volume loss. Progressed [id number] scattered T2 FLAIR hyperintense foci within the subcortical and periventricular white matter, favored to represent chronic ischemic microvascular disease. Chronic lacunar infarcts of the right basal ganglia. There is no intracranial mass, abnormal mass-effect or midline shift identified. Bilateral pseudophakia. Impression: 1. No acute/subacute infarct. 2. Progressive mild to moderate chronic ischemic microvascular disease. 3. Chronic lacunar infarcts of the right basal ganglia. Dictated by Lalit Lord MD @ 10/23/2022 2:16:17 PM (Electronically Signed)
--- NOTE | 2022-10-23 09:40 | ED.DIZZY ---
HPI - Dizziness General Date Seen: 10/23/22 Chief Complaint: Dizziness/Vertigo Stated Complaint: Dizzy/spinning Time Seen by Provider: 10/23/22 08:45 Source: patient Mode of arrival: ambulatory Limitations: no limitations History of Present Illness HPI Narrative: Patient is a 72-year-old gentleman who presents here with episodes of dizziness, he has had these for the past 3 days, he describes it in the evening when he will turn his head in for approximately 20 seconds he feels that there is some rotational problem. This goes away, he does not have a headache, has no double vision associated with this or numbness tingling weakness in his hands or feet, he was not nauseous and did not vomit. He is concerned however as he had a previous right carotid endarterectomy done 2 years ago at [facility] in the doctor there told him that VR had this come on again he needed come to the ER and be transferred to [facility]. On review of his chart I can see that he was hospitalized here in 2019, at that time he was not having an acute stroke but he did have a chronic basilar stroke, MRI and CT was done at that point. He was hospitalized and Stroke Neurology was involved. He followed up with outpatient Neurology in the had him see vascular at that point where he had a right carotid endarterectomy. He has been asymptomatic since. [place], did not take his blood pressure medications this morning. And currently is asymptomatic and walked in here. elicited complaint: vertigo Pertinent past history: stroke and other (Right carotid endarterectomy) Timing: intermittent Severity: moderate Description: sense of movement and room spinning History of similar symptoms: Yes Associated symptoms: denies other symptoms Stroke scale total: 0 Related Data Home Medications Medication Instructions Recorded Confirmed aspirin 81 mg chewable tablet 81 mg PO DAILY 06/06/22 10/23/22 epinephrine 0.3 mg/0.3 mL 0.3 ml IM .As Needed as needed PRN 06/06/22 10/23/22 injection, auto-injector lisinopril 20 mg tablet 40 mg PO QDAY 10/23/22 10/23/22 Previous Rx's Medication Instructions Recorded atorvastatin 40 mg tablet 40 mg PO QHS #90 tabs 06/06/22 glipizide 5 mg tablet, extended 5 mg PO QDAY #90 tabs 06/06/22 release 24 hr metformin 500 mg tablet,extended 500 mg PO QDAY #90 tabs 06/06/22 release 24 hr chlorthalidone 25 mg tablet 12.5 mg PO QDAY #45 tabs 06/18/22 amlodipine 5 mg tablet 5 mg PO DAILY #30 tabs 10/23/22 Allergies Allergy/AdvReac Type Severity Reaction Status Date / Time Bee venom Allergy Severe Difficulty Uncoded 06/06/22 08:06 Swallowing Penicillin Allergy Unknown Uncoded 06/06/22 08:06 Review of Systems Status of ROS: Reports: 10 or more systems reviewed and unremarkable except as noted in History and below [facility] Medical History Abnormal gait Constipation Surgical History History of right-sided carotid endarterectomy History of tonsillectomy (1968) Social History Narrative: SOCIAL HISTORY: He is single. Retired. One daughter living in [facility] that he does not see much. No longer working at [employer]. No longer working for the [employer]. 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 HABITS: Sporadic walking for exercise. Sporadic smoking in the past. He denies smoking at this point. No alcohol or recreational drug use. FAMILY HISTORY: No changes. Parents both . He did not know them well. Father around 80 of unknown cause. Mother around 70 of unknown cancer. Three sisters all living with borderline diabetes otherwise healthy. Smoking Status: Never smoker Do you use any of these nicotine containing products: None How often do you have a drink containing alcohol: never AUDIT-C Alcohol total score: 0 Little interest or pleasure in doing things: several days Feeling down, depressed, or hopeless: several days Exam Narrative: Exam Narrative: I find him resting and room 5 in no apparent distress he is alert and oriented x3 speaking to me entirely normally. Cranial nerves 3-12 are entirely normal he is able to whistle for me in the room. Pupils are equal round reactive might he does have however 2 beats of horizontal nystagmus bilaterally. TMs are normal, fundi appear normal, carotid upstrokes seem equal bilaterally with absence of bruits, JVP is flat, neck motion is normal, and I cannot reproduce his issues by moving his neck around. Chest is good air entry bilaterally with no wheezing crackles noted his heart sounds S1-S2 are normal there is no S3-S4 clicks murmurs or gallops, abdomen is soft and scaphoid there is no guarding no organomegaly, pelvis stable, no tenderness, extremities are all normal, he moves all extremities independently well fine motor movements of his fingers bilaterally are normal fingers nose testing is normal, heel-omer testing is normal, strength is normal is upper lower extremities both proximal distal and he is able to sit up in his truncal strength is normal. Tandem walking is assessed and normal. He does appear hypertensive on his vital signs but did not take his antihypertensives this morning. Const: Vital Signs, click to edit/add: Vital Signs - 24 hr 10/23/22 08:41 10/23/22 09:54 10/23/22 09:56 Temperature 97.9 F Pulse Rate 75 Pulse Rate [Right Pulse Oximeter] 80 Respiratory Rate 18 Blood Pressure 222/100 H Blood Pressure [Ri ght Upper Arm] 205/101 H Pulse Oximetry 99 98 Oxygen Delivery Me thod Room Air 10/23/22 10:00 10/23/22 10:02 10/23/22 10:15 Temperature Pulse Rate 66 73 67 Pulse Rate [Right Pulse Oximeter] Respiratory Rate Blood Pressure 195/101 H Blood Pressure [Ri ght Upper Arm] Pulse Oximetry 97 97 98 Oxygen Delivery Me thod 10/23/22 10:32 10/23/22 10:33 10/23/22 10:45 Temperature Pulse Rate 70 71 65 Pulse Rate [Right Pulse Oximeter] Respiratory Rate Blood Pressure 199/92 H Blood Pressure [Ri ght Upper Arm] Pulse Oximetry 97 98 97 Oxygen Delivery Me thod 10/23/22 11:00 10/23/22 11:02 10/23/22 11:15 Temperature Pulse Rate 64 67 61 Pulse Rate [Right Pulse Oximeter] Respiratory Rate Blood Pressure 181/87 H Blood Pressure [Ri ght Upper Arm] Pulse Oximetry 97 98 97 Oxygen Delivery Me thod 10/23/22 11:31 10/23/22 11:35 10/23/22 11:45 Temperature Pulse Rate 68 62 62 Pulse Rate [Right Pulse Oximeter] Respiratory Rate Blood Pressure 196/94 H Blood Pressure [Ri ght Upper Arm] Pulse Oximetry 98 98 99 Oxygen Delivery Me thod 10/23/22 12:00 10/23/22 12:02 10/23/22 12:15 Temperature Pulse Rate 63 62 60 Pulse Rate [Right Pulse Oximeter] Respiratory Rate Blood Pressure 191/91 H Blood Pressure [Ri ght Upper Arm] Pulse Oximetry 98 98 96 Oxygen Delivery Me thod 10/23/22 13:01 10/23/22 13:03 10/23/22 13:15 Temperature Pulse Rate 62 64 62 Pulse Rate [Right Pulse Oximeter] Respiratory Rate Blood Pressure 198/95 H Blood Pressure [Ri ght Upper Arm] Pulse Oximetry 97 98 97 Oxygen Delivery Me thod 10/23/22 13:30 10/23/22 13:45 10/23/22 14:00 Temperature Pulse Rate 64 68 61 Pulse Rate [Right Pulse Oximeter] Respiratory Rate Blood Pressure Blood Pressure [Ri ght Upper Arm] Pulse Oximetry 97 96 96 Oxygen Delivery Me thod 10/23/22 14:03 10/23/22 14:15 10/23/22 14:31 Temperature Pulse Rate 62 64 65 Pulse Rate [Right Pulse Oximeter] Respiratory Rate 16 Blood Pressure 196/93 H Blood Pressure [Ri ght Upper Arm] Pulse Oximetry 96 98 95 Oxygen Delivery Me thod 10/23/22 14:32 10/23/22 15:02 Temperature 98.3 F Pulse Rate 69 78 Pulse Rate [Right Pulse Oximeter] Respiratory Rate 16 Blood Pressure 203/95 H 185/84 H Blood Pressure [Ri ght Upper Arm] Pulse Oximetry 96 95 Oxygen Delivery Me thod Documenting provider has reviewed patient's vital signs: yes Course Course Hospital Course: Patient has been entirely asymptomatic his entire time here, I went over the results of the CT, CTA, MRI with him, no evidence of acute stroke, I believe this is likely peripheral vertigo, he does have the elevated blood pressures continues to be elevated. I will restart him at 5 mg of the amlodipine, and will have him follow-up in the next 3 days. He was comfortable this plan we went over signs and symptoms of worsening, he will return if these occur. Vital Signs Vital signs: Initial Vital Signs Temperature 97.9 F 10/23/22 08:41 Temperature Source Temporal Artery Scan 03/14/23 08:41 Pulse Rate 80 10/23/22 08:41 Respiratory Rate 18 10/23/22 08:41 Blood Pressure 205/101 H 10/23/22 08:41 Blood Pressure Mean 135 10/23/22 08:41 Blood Pressure Position Sitting 10/23/22 08:41 Pulse Oximetry 99 10/23/22 08:41 Oxygen Delivery Method 10/23/22 08:41 Vital Signs Temperature 97.9 F 10/23/22 08:41 Pulse Rate 80 10/23/22 08:41 Respiratory Rate 18 10/23/22 08:41 Blood Pressure 205/101 H 10/23/22 08:41 Pulse Oximetry 99 10/23/22 08:41 Oxygen Delivery Method 10/23/22 08:41 Temperature 98.3 F 10/23/22 15:02 Pulse Rate 78 10/23/22 15:02 Respiratory Rate 16 10/23/22 15:02 Blood Pressure 185/84 H 10/23/22 15:02 Pulse Oximetry 95 10/23/22 15:02 Oxygen Delivery Method 10/23/22 08:41 MDM - Dizziness MDM Narrative Medical decision making narrative: Life-threatening differential diagnosis considered include, CVA, other differential diagnosis include BPPV, labyrinthitis, Meniere's disease, vestibular neuronitis, migraine, multiple sclerosis, otitis media, viral syndrome as well as other etiologies Given the past history of the right carotid endarterectomy and previous stroke, think a workup for this and I will order the laboratory work EKG CT CTA and MRI. This more likely however seems peripheral in nature although 1 cannot totally rule this out. I am reassured by his asymptomatic status today, and it has been going on for 3 days or greater than 72 hours, with intermittent episodes, so he is not a candidate currently unless he becomes symptomatic for tPA. Medical Records Attestation: I reviewed the patient's medical records. Lab Data Attestation: I reviewed the patient's lab results. Labs: Lab Results 10/23/22 10/23/22 10/23/22 Range/Units 09:18 09:30 09:35 WBC 7.43 (4.50-11.00) K/uL RBC 5.21 (4.30-5.90) m/uL Hgb 15.5 (13.5-17.5) gm/dL Hct 44.8 (37.0-53.0) % MCV 86 (80-100) fL MCH 30 (26-34) pg MCHC 35 (32-36) gm/dL RDW Coeff of Rodriguez 12.0 (11.5-15.5) % Plt Count 253 (140-440) K/uL Neut % (Auto) 64.3 (42.0-72.0) % Lymph % (Auto) 23.4 (20-44) % Colleton % (Auto) 7.9 (0.0-11.0) % Eos % (Auto) 3.9 (0.0-7.0) % Baso % (Auto) 0.4 (0.0-3.0) % Neut # (Auto) 4.77 (1.7-7.0) K/uL Lymph # (Auto) 1.74 (0.90-2.90) K/uL Col[place] # (Auto) 0.60 (0.00-0.90) K/UL Eos # (Auto) 0.29 (0.00-0.50) K/uL Baso # (Auto) 0.03 (0.00-0.30) K/uL INR (0.91-1.10) APTT (23-33) Seconds D-Dimer Quant (PE/DVT) (0.00-0.50) ug/ml Sodium (135-149) mmol/L Potassium (3.6-5.1) mmol/L Chloride (96-114) mmol/L Carbon Dioxide (20-32) mmol/L BUN (7-30) mg/dL Creatinine (0.5-1.5) mg/dL Estimated Creat Clear Estimated GFR ml/min Glucose (60-115) mg/dL Calcium (8.4-10.6) mg/dL C-Reactive Protein (0.5-1.0) mg/dL NT-Pro-B Natriuret Pep < 20 pg/mL Ethyl Alcohol (0.01-0.03) % SARS-CoV-2 (PCR) (Negative) Influenza Type A (PCR) (Negative) Influenza Type B (PCR) (Negative) RSV (PCR) (Negative) POC Creatinine (0.6-1.3) mg/dl POC Troponin I 0.00 L (0.01-0.04) ng/ml 10/23/22 10/23/22 10/23/22 Range/Units 09:35 09:35 09:35 WBC (4.50-11.00) K/uL RBC (4.30-5.90) m/uL Hgb (13.5-17.5) gm/dL Hct (37.0-53.0) % MCV (80-100) fL MCH (26-34) pg MCHC (32-36) gm/dL RDW Coeff of Rodriguez (11.5-15.5) % Plt Count (140-440) K/uL Neut % (Auto) (42.0-72.0) % Lymph % (Auto) (20-44) % Colleton % (Auto) (0.0-11.0) % Eos % (Auto) (0.0-7.0) % Baso % (Auto) (0.0-3.0) % Neut # (Auto) (1.7-7.0) K/uL Lymph # (Auto) (0.90-2.90) K/uL Colleton # (Auto) (0.00-0.90) K/UL Eos # (Auto) (0.00-0.50) K/uL Baso # (Auto) (0.00-0.30) K/uL INR (0.91-1.10) APTT (23-33) Seconds D-Dimer Quant (PE/DVT) 0.49 (0.00-0.50) ug/ml Sodium 135 (135-149) mmol/L Potassium 4.1 (3.6-5.1) mmol/L Chloride 103 (96-114) mmol/L Carbon Dioxide 27 (20-32) mmol/L BUN 21 (7-30) mg/dL Creatinine 0.7 (0.5-1.5) mg/dL Estimated Creat Clear 79.92 Estimated GFR 99 ml/min Glucose 227 H (60-115) mg/dL Calcium 9.0 (8.4-10.6) mg/dL C-Reactive Protein < 0.5 L (0.5-1.0) mg/dL NT-Pro-B Natriuret Pep pg/mL Ethyl Alcohol < 0.01 L (0.01-0.03) % SARS-CoV-2 (PCR) Negative SARS-CoV-2 (Negative) Influenza Type A (PCR) Negative PCR FLU A (Negative) Influenza Type B (PCR) Negative PCR FLU B (Negative) RSV (PCR) Negative PCR RSV (Negative) POC Creatinine (0.6-1.3) mg/dl POC Troponin I (0.01-0.04) ng/ml 10/23/22 10/23/22 Range/Units 09:35 09:43 WBC (4.50-11.00) K/uL RBC (4.30-5.90) m/uL Hgb (13.5-17.5) gm/dL Hct (37.0-53.0) % MCV (80-100) fL MCH (26-34) pg MCHC (32-36) gm/dL RDW Coeff of Rodriguez (11.5-15.5) % Plt Count (140-440) K/uL Neut % (Auto) (42.0-72.0) % Lymph % (Auto) (20-44) % Colleton % (Auto) (0.0-11.0) % Eos % (Auto) (0.0-7.0) % Baso % (Auto) (0.0-3.0) % Neut # (Auto) (1.7-7.0) K/uL Lymph # (Auto) (0.90-2.90) K/uL [place] # (Auto) (0.00-0.90) K/UL Eos # (Auto) (0.00-0.50) K/uL Baso # (Auto) (0.00-0.30) K/uL INR 0.96 (0.91-1.10) APTT 19 L (23-33) Seconds D-Dimer Quant (PE/DVT) (0.00-0.50) ug/ml Sodium (135-149) mmol/L Potassium (3.6-5.1) mmol/L Chloride (96-114) mmol/L Carbon Dioxide (20-32) mmol/L BUN (7-30) mg/dL Creatinine (0.5-1.5) mg/dL Estimated Creat Clear Estimated GFR ml/min Glucose (60-115) mg/dL Calcium (8.4-10.6) mg/dL C-Reactive Protein (0.5-1.0) mg/dL NT-Pro-B Natriuret Pep pg/mL Ethyl Alcohol (0.01-0.03) % SARS-CoV-2 (PCR) (Negative) Influenza Type A (PCR) (Negative) Influenza Type B (PCR) (Negative) RSV (PCR) (Negative) POC Creatinine 0.1 L (0.6-1.3) mg/dl POC Troponin I (0.01-0.04) ng/ml Imaging Data CT scan - head: Radiologist's impression: Patient: WONG MOLINA Facility:?[facility] Patient ID:?[id number] Site Patient ID:?[id number]. Site :?1950 Study:?CT Neck Angio Angio W/ISOVUE 370 95CC NON ACUTE-10/23/2022 10:41:04 AM Ordering Physician:Farideh May Final Report: INDICATION: Acute stroke, dizziness, previous right carotid endarterectomy. TECHNIQUE: CTA neck with contrast bolus tracking and 3D MIP reconstruction. FINDINGS: There are postoperative findings of a right carotid endarterectomy without residual or recurrent stenosis. There is left carotid atherosclerosis without significant stenosis. There is scattered vertebral atherosclerosis with mild stenoses. There is no evidence for dissection. The soft tissues of the neck are within normal limits. The cervical spine is in normal alignment. IMPRESSION: 1. Right CEA without residual or recurrent stenosis. 2. Left carotid atherosclerosis without significant stenosis. Please note that all CT scans at this facility use dose modulation, iterative reconstruction, and/or weight-based dosing when appropriate to reduce radiation dose to as low as reasonably achievable. Dictated by Freddy Ball MD @ 10/23/2022 12:32:02 PM (Electronic Signature) Patient: [facility] Facility:?[facility] Patient ID:?[id number] Site Patient ID:?[id number]. Site :?1950 Study:?CT Head Angio W/ISOVUE 370 95CC NON ACUTE-10/23/2022 10:41:52 AM Ordering Physician:Farideh May Final Report: INDICATION: Acute stroke, dizziness, previous right carotid endarterectomy. TECHNIQUE: CTA head with contrast bolus tracking and 3D MIP reconstruction. FINDINGS: There is scattered intracranial atherosclerotic disease with mild stenoses of the carotid siphons and focal severe intracranial left vertebral artery stenosis. The intracranial right vertebral artery and basilar artery are widely patent. There is otherwise normal opacification of the intracranial vasculature. There is no large vessel occlusion. No aneurysm is identified. 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 No large vessel occlusion. Please note that all CT scans at this facility use dose modulation, iterative reconstruction, and/or weight-based dosing when appropriate to reduce radiation dose to as low as reasonably achievable. Dictated by Freddy Ball MD @ 10/23/2022 12:28:55 PM (Electronic Signature) Patient: WONG MOLINA Facility:?[facility] Patient ID:?[id number] Site Patient ID:?[id number] Site :?1950 Study:?MRI Head W/O-10/23/2022 1:51:42 PM Ordering Physician:Farideh May Final Report: Indication: Dizziness. Technique: Multiplanar, multisequence MRI of the brain was performed without intravenous contrast. Comparison: CT head earlier the same day. MR brain 06/27/2020. Findings: The corpus callosum, pituitary gland and clivus appear intact. Mild degenerative change visualized upper cervical spine. There is no restricted diffusion. No intracranial hemorrhage. The ventricles are proportionate to the cerebral sulci. The 4th ventricle appears midline. The basal cisterns appear patent. No abnormal extra-axial fluid collection identified. Mild parenchymal volume loss. Progressed [id number] scattered T2 FLAIR hyperintense foci within the subcortical and periventricular white matter, favored to represent chronic ischemic microvascular disease. Chronic lacunar infarcts of the right basal ganglia. There is no intracranial mass, abnormal mass-effect or midline shift identified. Bilateral pseudophakia. Impression: 1. No acute/subacute infarct. 2. Progressive mild to moderate chronic ischemic microvascular disease. 3. Chronic lacunar infarcts of the right basal ganglia. Dictated by Lalit Lord MD @ 10/23/2022 2:16:17 PM (Electronic Signature) Discharge Plan Discharge Clinical Impression: History of cerebrovascular accident (CVA) due to ischemia, Benign paroxysmal positional vertigo, Elevated blood pressure reading Patient Disposition: Home, Self-Care Condition: Stable Instructions: Benign Paroxysmal Positional Vertigo (ED), Dizziness (ED) Additional Instructions: Suggestion is to go home restart amlodipine ,as her blood pressure was high, continue to take her other medications including aspirin. MRI did not show any acute stroke, follow-up with primary care within the next week. We will endeavor to make follow-up appointment for you return here if increasing dizziness, numbness tingling weakness headaches or other issues. Follow up appointment is scheduled at the [facility] on 10/25 with a 12:30pm arrival time. If you have any questions or need to reschedule, please call [phone]. [facility] [address] [place] [address] Prescriptions: New amlodipine 5 mg tablet 5 mg PO DAILY Qty: 30 0RF No Action aspirin 81 mg tablet,chewable 81 mg PO DAILY epinephrine 0.3 mg/0.3 mL auto-injector 0.3 ml IM .As Needed as needed PRN atorvastatin 40 mg tablet 40 mg PO QHS Qty: 90 3RF glipizide 5 mg tablet extended release 24hr 5 mg PO QDAY Qty: 90 3RF metformin 500 mg tablet extended release 24 hr 500 mg PO QDAY Qty: 90 3RF lisinopril 20 mg tablet 40 mg PO QDAY chlorthalidone 25 mg tablet 12.5 mg PO QDAY Qty: 45 3RF Follow Up/Referrals: Santi Juarez MD [Primary Care Provider] - Stand Alone Forms: [employer] Info Instructions
[2022-10-23 09:45] LABS: Creatinine, Point-of-Care* 0.1 mg/dl (0.6-1.3)
[2022-10-23] MEDS: CHLORTHALIDONE 25 MG TABLET 12.5 MG PO (09:45)
[2022-10-23] MEDS: lisinopriL 20 MG TABLET 40 MG PO (09:45)
[2022-10-23 09:47] LABS: Basophils Absolute Auto 0.03 K/uL (0.00-0.30); Basophils Percent Auto 0.4 % (0.0-3.0); Eosinophils Absolute Auto 0.29 K/uL (0.00-0.50); Eosinophils Percent Auto 3.9 % (0.0-7.0); Hematocrit 44.8 % (37.0-53.0); Hemoglobin* 15.5 gm/dL (13.5-17.5); Immature Granulocytes Abs Auto 0.01 K/uL (0.00-0.30); Immature Granulocytes Pct Auto 0.1 %; Lymphocytes Absolute Auto 1.74 K/uL (0.90-2.90); Lymphocytes Percent Auto 23.4 % (20-44); Mean Corpuscular HGB Conc 35 gm/dL (32-36); Mean Corpuscular Hemoglobin 30 pg (26-34); Mean Corpuscular Volume 86 fL (80-100); Monocytes Percent Auto 7.9 % (0.0-11.0); Neutrophils Absolute Auto 4.77 K/uL (1.7-7.0); Neutrophils Percent Auto 64.3 % (42.0-72.0); Platelet Count* 253 K/uL (140-440); Red Blood Count 5.21 m/uL (4.30-5.90); White Blood Count* 7.43 K/uL (4.50-11.00)
[2022-10-23 09:55] LABS: Slide Review Reflex No
[2022-10-23 10:04] LABS: Chloride* 103 mmol/L (96-114); Sodium* 135 mmol/L (135-149)
[2022-10-23 10:05] LABS: Potassium* 4.1 mmol/L (3.6-5.1)
[2022-10-23 10:07] LABS: Creatinine* 0.7 mg/dL (0.5-1.5); Est. Creatinine Clearance* 79.92; Estimated Glomerular Filt Rate 99 ml/min
[2022-10-23 10:08] LABS: Blood Urea Nitrogen* 21 mg/dL (7-30); Carbon Dioxide* 27 mmol/L (20-32); Ethanol* < 0.01 % (0.01-0.03); Glucose* 227 mg/dL (60-115)
[2022-10-23 10:20] LABS: NT Pro B Type NatriureticPept* < 20 pg/mL
[2022-10-23 10:20] LABS: C Reactive Protein* < 0.5 mg/dL (0.5-1.0)
[2022-10-23 10:29] LABS: PCR FLU A Negative PCR FLU A (Negative); PCR FLU B Negative PCR FLU B (Negative); PCR RSV Negative PCR RSV (Negative)
[2022-10-23 10:35] LABS: SARS PCR* Negative SARS-CoV-2 (Negative)
[2022-10-23] MEDS: 0.9 % SODIUM CHLORIDE 1000 ml 1,000 ML IV (10:36)
[2022-10-23 10:59] LABS: INR 0.96 (0.91-1.10); Partial Thromboplastin Time* 19 Seconds (23-33); Prothrombin Time 13.4 Seconds
[2022-10-23 14:58] LABS: D Dimer Quantitative* 0.49 ug/ml (0.00-0.50)
[2022-10-23] MEDS: AMLODIPINE 5 MG TABLET PO (15:00)
--- NOTE | 2022-10-23 15:01 | PC.NURSE ---
MD notified that BP continues to be elevated. Ordered Amlodipine PO. Denies headache and blurred vision
== END 2022-10-23 15:17 | disposition home or self-care (01) ==
PROVIDERS: Emergency Provider Family Medicine; PCP Family Medicine
DX: H81.10 Benign paroxysmal vertigo, unspecified ear (principal); R03.0 Elevated blood-pressure reading, without diagnosis of hypertension
CPT/HCPCS: 36415; 70450; 70496; 70498; 70551; 80048; 82077; 82565; 83880; 84484; 85025; 85379; 85610; 85730; 86140; 87502; 87634; 87635; 93005; 99284; 99285; A9270; J7030; Q9967

== ENCOUNTER 2023-07-03 10:29 | Outpatient (CLI) | payer MEDICARE, BC, SELFPAY ==
--- OUTSIDE RECORDS SUMMARY | 2023-07-04 11:40 | XMS_ITS | Continuity of Care Document ---
Author Name Unknown Organization [facility] Address [address] [address] [place] [address] Phone Care Team Providers Care School Supervisor Name Role Phone Jose Guadalupe SHERMAN, Isaías [...] Diagnoses Date Provider Providers Copied on Encounter [facility], [address] [address], [place], [id number], [place] tel:[phone] [facility] Personal History Colon PolypsColon Cancer ScreeningDiverti culosis Of ColonPersonal History Colon PolypsRectal Polyp/Benign Apr- 3-201 0 Jose Guadalupe Metz. [address] [facility], [place], [place], [id number], [place]. tel:[phone] Referring Provider: [place] R, [address] [place], [address]. tel:[phone] [facility], [address] [address], [place], [place], [id number], [place] tel:[phone] [facility] No Information Oct- 5201 0 No Information Referring Provider: Boris Balderrama [place] R, [address] [place], [address]. tel:[phone] [facility], [address] [address], [place], [place], [id number], [place] tel:[phone] [facility] No Information 5 No Information Referring Provider: [place] R, [address] [place], [address]. tel:[phone] Family History Family Member Type Diagnosis Age At Onset No Information Payers Payer name Insurance type Covered alliance party ID Neeru buitrago(s) Preferred [employer] Admin [facility] CI [id number] Social History Type Description Quantity Date Captured [...]
== END 2023-07-03 10:30 | disposition home or self-care (01) ==
LOC: NFLDREF 07-04 11:38
PROVIDERS: PCP Family Medicine; Referring Provider Family Medicine; Visit Provider Family Medicine
DX: Z00.00 Encounter for general adult medical examination without abnormal findings (principal); I10 Essential (primary) hypertension; E78.5 Hyperlipidemia, unspecified; E11.42 Type 2 diabetes mellitus with diabetic polyneuropathy; Z12.5 Encounter for screening for malignant neoplasm of prostate
CPT/HCPCS: 80053; 80061; 82043; 82570; 84153

== ENCOUNTER 2024-04-24 10:00 | Outpatient (RCR) | payer MEDICARE, BC, SELFPAY ==
--- NOTE | 2024-04-03 10:44 | PT.OPEX ---
PT [place] Outpatient Eval PT [facility] Outpatient Eval Start: 04/03/24 07:53 Freq: Status: Active Protocol: Document 04/03/24 07:54 CRP (Rec: 04/03/24 10:43 CRP [id number]) E-signed By Peng Bronw PT Physical Therapy Outpatient Evaluation Insurance Information Recert Due Date 07/02/24 Insurance Name Medicare B Medical Diagnosis Lumbar Radiculopathy with R LE Sxs Referring MD Dr Juarez Subjective Subjective About 2-3 months ago started having issues of R hamstring and calf pain. Also has numbness down the leg and LE does not work. After prolonged sitting or lying down his leg does not want to work well when he initially stands. Needs 4-5 steps to walk it out. Still has pain but not as bad. Then if he stands too long his pain will worsen. [place] be able to take care of his land. Does feel like bending forward/hamstring stretch helps. Can have times his leg has almost buckled on him. Pt does find that J Luis will nearly take sxs away substantially. Used to have severe night pain that affected his sleep. The standing bending forward stretch seemed to help this. Current Work Status Retired Objective Other/Pertinent Objective Posture: Flattened lower lumbar spine Trunk ROM: FLex min/mod dec with R hamstring pain, Ext mack dec with R hamstring pain - most painful, Bilat SB min decrease, bilat rot min dec Hip ROM: Bilat hip ROM WNL MMT: R ankle DF and grt toe ext 3+/5 SLR - Positive on R at 55 degrees Segmental testing: L side lying - L SB and R rot shows mild restriction without pain. Assessment Assessment/Impression Pt presents to the clinic with signs and sxs consistent with lumbar radiculopathy and resulting R LE pain, numbness and foot/ankle weakness. Skilled PT is necessary to incorporate the ex, nm zaire, manual therapy and pt education to decrease pain and improve functional mobility. Primary Functional Limitations Standing Walking service correspondent Exercise Plan of Care Rehabilitation Potential Excellent Physical Therapy Goals 1. Pt will be independent with HEP in 6 weeks. 2. Pt will walk more than 20 minutes with 75% decrease in pain to tend to his property in 10 weeks. 3. Pt will exer as needed with 75% decrease in symptoms in 12 weeks. Coordination/Communication With Referral Source Treatment Plan/Direct Interventions Joint Mobilization,Manual Therapy,Neuromuscular Re-ed, Self-Care/Home Management, Therapeutic Activities, Therapeutic Exercises Frequency/Duration 1-2x/wk for 12 weeks Patient Will Be Discharged From Therapy Completion of LTG(s),Skills Plateau,Independent w/HEP, Independently Progressing Evaluation Billing Untimed Code Treatment Minutes 40 Complexity Moderate Certification Information Initial Certification Date 04/03/24 Ending Certification Date 07/02/24 Provider Signature Required Yes Provider Signature Shows Agreement With POC & Medical Necessity Physician NPI Number Write NPI# Here Physician Comment/Change : Physician Signature & Date Requested Please Sign/Date Here
== END 2024-08-22 23:59 | disposition home or self-care (01) ==
PROVIDERS: PCP Family Medicine; Visit Provider Family Medicine
DX: M54.16 Radiculopathy, lumbar region (principal); Z51.89 Encounter for other specified aftercare
CPT/HCPCS: 97110; 97140; 97162

== ENCOUNTER 2024-08-13 09:45 | Emergency (ER) | payer MEDICARE, BC, SELFPAY ==
--- OUTSIDE RECORDS SUMMARY | 2024-08-13 09:48 | XMS_ITS | Clinical Summary ---
Author Organization [facility] Address [address] [facility] [place] [address] Care Team Providers Care Boat Hoist Operator Helper Name Role Phone Guero Hutchinson MD Primary Care Provider Allergies Active Allergy Reactions Criticality Noted Date Comments Bee 12/18/2004 Penicillins 11/17/2004 Medications ASPIRIN 81 MG OR TABSIndications: Essential hypertension, benign 1 TABLET DAILY Activ e EPINEPHrine (EPIPEN) 0.3 MG/0.3ML injectionIndicat ions:Bee allergy status,Chronic rhinitis Inject 0.3 mLs (0.3 mg) into the muscle once as needed for anaphylaxis 1 each 3 3 Active Additional Information Patient not taking.Reported on 09/10/2017 lisinopril-hydro chlorothiazide (PRINZIDE,ZESTOR ETIC) 20-25 MG per tabletIndication s:Unspecified essential hypertension Take 1 tablet by mouth every morning Needs labs for more refills 90 tablet 3 3 Active atenolol (TENORMIN) 50 MG tabletIndication s:Unspecified essential hypertension Take 1 tablet (50 mg) by mouth daily 30 tablet 11 3 Active SIMVASTATIN PO Activ e Active Problems Problem Noted Date Diagnosed Date Hypertension goal BP (blood pressure) < 140/90 0 11/23/2011 CARDIOVASCULAR SCREENING; LDL GOAL LESS THAN 130 06/11/2010 Benign neoplasm of colon 05/28/2007 Allergic state 12/11/2005 Overview (05/12/2015): Problem list name updated by automated process. Provider to review Allergic rhinitis 12/11/2005 Overview (05/12/2015): Problem list name updated by automated process. Provider to review Resolved Problems Problem Noted Date Diagnosed Date Resolved Date Advanced directives, counseling/discussion 09/06/2011 01/27/2024 Overview (09/06/2011): PT will bring copy for chart. Essential hypertension 05/10/200603/03 Overview (05/12/2015): Problem list name updated by automated process. Provider to review [email or web address] 04/11/2005 05/15/2005 iamACCIDENT ON INDUSTR PREMISES 04/11/2005 05/15/2005 Overexertion and strenuous a nd repetitive movements or loads 04/11/2005 05/15/2005 Overview (04/15/2013): Problem list name updated by automated process. Provider to review and confirm Imo Update utility Immunizations Name Administration Dates Next Due Influenza (IIV3) PF 05/12/2011,04/12/2010 TD,PF 7+ (Tenivac) 11/17/2004 Family History Medical History Relation Comments Cancer Mother Relation Status Comments Brother Alive Father Mother Sister 1 Alive Sister 2 Alive Sister 3 Alive Sister 4 Alive Social History Tobacco Use Types Packs/Day Years Used Date Smoking Tobacco: Former Cigarettes Smokeless Tobacco: Never Tobacco Cessation:Counseling Given: No Comments:quit 09/2005 Alcohol Use Standard Drinks/Week Comments Yes 0 (1 standard drink = 0.6 oz pur e alcohol) rarely Adolescent Education Answer Date Record ed Getting School Help Needed Not on file 05/26 Sex and Gender Information Value Date Recorded Sex Assigned at Not on file Legal Sex Male 3:05 AM PICC NURSE Gender Identity Not on file Sexual Orientation Not on file Last Filed Vital Signs Vital Sign Reading Time Taken Comments Blood Pressure 122/78 09/10/2017 9:11 AM PICC NURSE Pulse 70 09/10/2017 9:11 AM PICC NURSE Temperature 36.7 C (98 F) 03/26/2013 9:28 AM CDT Respiratory Rate 18 03/26/2013 9:28 AM CDT Oxygen Saturation 98% 03/26/2013 9:28 AM CDT Inhaled Oxygen Concentration - - Weight 106.6 kg (235 lb) 09/10/2017 9:11 AM PICC NURSE Height 188 cm (6' 2) 09/10/2017 9:11 AM PICC NURSE Body Mass Index 30.17 09/10/2017 9:11 AM PICC NURSE Plan of Treatment Not on file Insurance MEDICARE Care Teams Boat Hoist Operator Helper Relationship Specialty Start Date End Date Guero Hutchinson MD [address] [place] [address] [place] [address] PCP - General Urology 11/14/15
--- OUTSIDE RECORDS SUMMARY | 2024-08-13 09:48 | XMS_ITS | Clinical Summary ---
Author Organization [facility] Address [place], [place] [address] Care Team Providers Care Oil Refiner Name Role Phone Santi Juarez MD Primary Care Provider [phone] Allergies Active Allergy Reactions Criticality Noted Date Comments Bee Pollen *Unknown 12/18/2004 Venom-Honey Bee Anaphylaxis High 04/18/2015 Penicillins *Unknown - Follow up needed 04/18/2015 ##No similarities in side chains, very low to no risk of cross-sensitivity to ANCEF. ANW Antimicrobial Stewardship Team 05/2019 Medications BD ULTRA FINE LANCETS MISC Use as directed Active EPINEPHrine (EpiPen 2-Tae) 0.3 mg/0.3 mL injection Active blood sugar diagnostic (TRUETEST TEST STRIPS) strip Test once daily, varying the times from before breakfast to 2 hours after starting a meal Active amLODIPine (NORVASC) 5 mg tablet Take 2 tablets by mouth once daily. 0 8 Active atorvastatin (LIPITOR) 40 mg tablet Take by mouth once daily in the evening. 1 Active glipiZIDE extended-release (GLUCOTROL XL) 5 mg Extended-Release tablet Take by mouth once daily before a meal. 1 Active chlorthalidone (HYGROTON) 25 mg tablet Take 12.5 mg by mouth once daily. 1 Active aspirin chewable 81 mg chewable tablet Chew 81 mg by mouth once daily with a meal. Active metFORMIN (GLUCOPHAGE XR) 500 mg Extended-Release tablet Take 1,000 mg by mouth 2 times daily with meals. Active glimepiride (AMARYL) 2 mg tablet 1 Active lisinopriL (PRINIVIL; ZESTRIL) 10 mg tablet 1 Active polyethylene glycol-electroly te (GOLYTELY) 236-22.74-6.74 -5.86 gram suspensionIndica tions:Adenomatou s polyp of colon, unspecified part of colon Drink 2 liters the day before the procedure and 2 liters 6 hours prior to procedure. 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 Diabetes mellitus 04/18/2015 Gout 04/18/2015 Hematuria 04/18/2015 Hypercholesterolemia 04/18/2015 HTN (hypertension) 04/18/2015 Immunizations Name Administration Dates Next Due Influenza Virus, Unspecified 05/19/2014,05/11/20 12,05/14/2011 Tdap 11/17/2004 Social History Tobacco Use Types Packs/Day Years Used Date Smoking Tobacco: Former Cigarettes 1 40 0 02/01/1981 - 02/01/2021 Smokeless Tobacco: Never Tobacco Cessation:Counseling Given: Yes Comments:pack a day Alcohol Use Standard Drinks/Week Comments Not Currently 0 (1 standard drink = 0.6 oz pur e alcohol) not for 5 years Social Connections Answer Date Recorded Frequency of Communication with Friends and Fami ly Not on file 08/12/2021 Financial Resource Strain Answer Date R ecorded Difficulty of Paying Living Expenses Not on file 08/12/2021 Difficulty of Paying Living Expenses Not on file 08/12/2021 Sex and Gender Information Value Date Recorded Sex Assigned at Not on file Legal Sex Male 7:26 PM CARD CUTTER Gender Identity Not on file Sexual Orientation Not on file Obstetrics History Last Filed Vital Signs Vital Sign Reading Time Taken Comments Blood Pressure 146/77 04/03/2023 11:25 AM CDT Pulse 56 04/03/2023 11:25 AM CDT Temperature 36.5 C (97.7 F) 01/04/2021 8:00 AM CDT Respiratory Rate 16 04/03/2023 11:2 5 AM CDT Oxygen Saturation 94% 04/03/2023 11: 25 AM CDT Inhaled Oxygen Concentration - - Weight 87.4 kg (192 lb 11.2 oz) 12/21/2021 1:18 PM CDT Height 188 cm (6' 2) 01/03/2021 6:29 AM CDT Body Mass Index 24.74 01/03/2021 6:29 AM CDT Plan of Treatment Health Maintenance Due Date Last Done Comments Depression screening for age 12+ 1964 Hepatitis C screening for ag e 18-79 01/11/1970 Lipids for age 45-75 01/11/1997 Zoster (shingles) series for age 50+ (1 of 2) 01/11/2002 Tetanus booster 11/17/2014 11/17/2004 Medicare Wellness for age 65+ 01/11/2017 Pneumococcal series for age 50+ (1 of 1 - PCV) 01/11/2017 BMI (ht and wt on same day) for age 18+ 12/09/2021 12/09/2020, 12/07/2020 COVID-19 vaccine series ( season) 2024 05/08/2022, 06/01/2021, 11/05/2020, Additional history exists Influenza for age 65+ 04/12/2024 05/19/2014 , 05/11/2012, 05/14/2011 RSV vaccine for adults or (1 - 1-dose 75+ series) 01/11/2027 Colonoscopy through age 75 04/03/202804/03, 04/03/2023, 04/01/2018, Additional history exists Tdap Completed 11/17/2004 Medical Devices Implanted Type Area Chair Mender Device Identifier Shelf Expiration Date Model / Serial / Lot Tissue Pericardium 0.8x8cm Xenosure - [id number] Implanted:Qty: 1 on 01/03/2021 by Cesar Jacobs MD at [facility] Right: Carotid Artery [employer] 08/08/2026 0.8P8 / / [id number] Procedures Procedure Name Priority Date/Time Associated Diagnosis Comments COLONOSCOPY 04/03/2023 9:22 AM CDT from Last 3 Months or Most Recently Relevant to Health Maintenance Results * COLONOSCOPY (04/03/2023 9:22 AM CDT) 04/03/2023 9:22 AM CDT Narrative Transcriptions Moi Lui MD - 04/03/2023 11:12 AM CDT Patient Name: Suresh Martinez Procedure Date: 04/03/2023 Gender: Male Date of : 1950 Admit Type: Outpatient Procedure: Colonoscopy Proceduralist: Moi Lui MD , Concepción Teixeira RN (Nurse), Gris Sanderson (Nurse) Indications/Pre-Op Diagnosis: High risk colon cancer surveillance:Personal history of adenoma less than 10 mm in size, Last colonoscopy: March 2018 Medications: Fentanyl 100 micrograms IV, Midazolam 3 mgIV, The level of sedation administered wasmoderate Procedure Description: The patient had risks, benefits and alternatives explained to andgave informed consent. The patient had a stable cardiopulmonary status and judged an adequate candidate for conscious sedation. The endoscope [id number]-H190L [id number] was passed through the anus andadvanced to the cecum, identified by appendiceal orifice and ileocecal valve.The colonoscopy was performed without difficulty. The patient toleratedthe procedure well. The quality of the bowel preparation was good. The ileocecal valve, appendiceal orifice, and rectum were photographed. Complications: No immediate complications. Estimated Blood Loss & Specimen: Estimated blood loss: none. Specimen collected - Yes and sent to Laboratory Findings: The perianal and digital rectal examinations were normal. Three sessile polyps were found in the ascending colon. The polypswere 3 to 4 mm in size. These polyps were removed with a cold snare. Resection and retrieval were complete. Scattered small and large-mouthed diverticula were found in thesigmoid colon. The exam was otherwise without abnormality. Impressions/Post-Op Diagnosis: - Three 3 to 4 mm polyps in the ascending colon, removed with a cold snare. Resected and retrieved. - Diverticulosis in the sigmoid colon. - The examination was otherwise normal. Recommendation: - Patient has a contact number available for emergencies. The signsand symptoms of potential delayed complications were discussed with the patient. Return to normal activities tomorrow. Written discharge instructions were provided to the patient. - Resume previous diet. - Continue present medications. - Await pathology results. - Repeat colonoscopy for surveillance based on pathology results. Moderate Sedation: A time out was performed before the procedure. Moderate (conscious) sedation was administered by the endoscopy nurse and supervised bythe endoscopist. The following parameters were monitored: oxygensaturation, heart rate, blood pressure, EKG, CO2, respiratory rate, adequacy of pulmonary ventilation and reponse to care. Please refer to the patient's medical record flowsheets and nursing notes for moderate sedation details. Total physician intraservice time was 17 minutes. Moi Lui MD 04/03/2023 11:12:14 AM This report has been signed electronically. Note Initiated On: 04/03/2023 9:22 AM Procedure Code(s): --- Professional --- 71120, Colonoscopy, flexible; with removalof tumor(s), polyp(s), or other lesion(s) bysnare technique Diagnosis Code(s): --- Professional --- Z86.010, Personal history of colonicpolyps D12.2, Benign neoplasm of ascending colon K57.30, Diverticulosis of large intestine without perforation or abscess withoutbleeding CPT copyright 2021 [employer]. All rights reserved. The codes documented in this report are preliminary and upon paid search manager reviewmay be revised to meet current compliance requirements. Scope In: 10:44:45 AM Scope Withdrawal Time 0 hours 10 minutes 40 seconds Scope Out: 10:59:10 AM Moi Lui MD PROCEDURE ORD Final Res ult from Last 3 Months or Most Recently Relevant to Health Maintenance Insurance [facility]REFERRED [facility] MEDICARE PART B HB ONLY [facility] MEDICARE PB ONLY MEDICARE PART A HB ONLY Advance Directives * Full Code (Latest Code Status on File) Date Activated Date Inactivated Comments 01/03/2021 6:00 AM 01/04/2021 1:54 PM Question Answer Comments Code Status Discussion: Not Discussed Care Teams Oil Refiner Relationship Specialty Start Date End Date Santi Juarez MD [address] [place] [id number] PCP - General Family Practice 12/07/20
--- OUTSIDE RECORDS SUMMARY | 2024-08-13 09:48 | XMS_ITS | Referral Summary ---
Author Organization [facility] Address [address] [facility] [place] [address] Care Team Providers Care Washtub Worker Name Role Phone Guero Hutchinson MD Primary [...] (IIV3) PF 05/12/2011,04/12/2010 TD,PF 7+ (Tenivac) 11/17/2004 Social History Tobacco Use Types Packs/Day [...] on file Legal Sex Male 3:05 AM MANAGER MORTGAGE Gender Identity Not on file Sexual Orientation Not on file Last Filed Vital Signs Vital Sign Reading Time Taken Comments Blood Pressure 122/78 09/10/2017 9:11 AM MANAGER MORTGAGE Pulse 70 09/10/2017 9:11 AM MANAGER MORTGAGE Temperature 36.7 C (98 F) 03/26/2013 9:28 AM CDT Respiratory Rate 18 03/26/2013 9:28 AM CDT Oxygen Saturation 98% 03/26/2013 9:28 AM CDT Inhaled Oxygen Concentration - - Weight 106.6 kg (235 lb) 09/10/2017 9:11 AM MANAGER MORTGAGE Height 188 cm (6' 2) 09/10/2017 9:11 AM MANAGER MORTGAGE Body Mass Index 30.17 09/10/2017 9:11 AM MANAGER MORTGAGE Plan of Treatment Not on file Insurance MEDICARE RISK MANAGEMENT Care Teams Washtub Worker Relationship Specialty Start Date End Date Guero Hutchinson MD [address] [place] [address] PCP - General Urology 11/14/15
[2024-08-13 09:54] VITALS: BP 179/79; PULSE 93; RESP 18; TEMP 36.8; O2SAT 94; BMI 25.7
--- NOTE | 2024-08-13 11:34 | ED_ITS ---
HPI - Back Pain/Injury General Chief Complaint: Back Injury/Pain Stated Complaint: Right side numb/weak Time Seen by Provider: 08/13/24 11:17 History of Present Illness HPI Narrative: This 74-year-old male comes in reporting severe low back pain radiating down his right leg. He does have a history of chronic back pain and did have some radiating pain like this a few months ago. He went to physical therapy and got some temporary improvement. Pain is worsened over these past several days and he states that he is unable to sleep much at all at night due to pain. He does not report any injury event or strenuous activity recently. Related Data Home Medications ?Medication ?Instructions ?Recorded ?Confirmed aspirin 81 mg chewable tablet 81 mg PO DAILY 06/06/22 03/10/24 Previous Rx's ?Medication ?Instructions ?Recorded epinephrine 0.3 mg/0.3 mL 0.3 ml IM .As Needed as needed PRN 07/03/23 injection, auto-injector anaphylaxis #2 ea Blood Glucose Meter #1 ea 01/01/24 Diabetic Test Strips #100 ea 01/01/24 lancets 28 gauge (Acti-Forest #100 ea 01/01/24 Lancets) metformin 1,000 mg tablet,extended 1,000 mg PO QDAY #180 tabs 01/01/24 release 24hr (osmotic) chlorthalidone 25 mg tablet 12.5 mg (1/2 x 25 mg) PO QDAY #45 07/15/24 tabs amlodipine 10 mg tablet 10 mg PO QDAY #90 tabs 07/30/24 atorvastatin 40 mg tablet 40 mg PO QHS #90 tabs 07/30/24 glipizide 10 mg tablet, extended 10 mg PO QDAY #90 tabs 07/30/24 release 24 hr lisinopril 10 mg tablet 10 mg PO QDAY #90 tabs 07/30/24 cyclobenzaprine 10 mg tablet 10 mg PO TID #20 tabs 08/13/24 gabapentin 100 mg capsule 100 mg PO TID #30 caps 08/13/24 hydrocodone 5 mg-acetaminophen 325 1 tab PO Q4-6H PRN pain #20 tabs 08/13/24 mg tablet ketorolac 10 mg tablet 10 mg PO Q8H 5 days #15 tabs 08/13/24 methylprednisolone 4 mg tablets in See Rx Instructions PO .COMPLEX 08/13/24 a dose pack (Medrol (Tae)) #21 ea Allergies Allergy/AdvReac Type Severity Reaction Status Date / Time Bee venom Allergy Severe Difficulty Uncoded 03/10/24 10:03 Swallowing Penicillin Allergy Unknown Uncoded 03/10/24 10:03 Review of Systems Status of ROS: Reports: 10 or more systems reviewed and unremarkable except as noted in History and below Narrative: Constitutional: No fevers, no weight gain or loss. Eyes: No discharge. No vision changes. HENT: No congestion, no sore throat, no ear pain. Cardiovascular: No chest pain, no palpitations. Respiratory: No shortness of breath, no wheezes, no cough. Gastrointestinal: No abdominal pain, no vomiting, no diarrhea. Genitourinary: No dysuria, no hematuria. Musculoskeletal: Normal range of motion. Low back pain radiating down the right leg as described above. Skin: No rashes, no pruritis. Neurological: No dizziness, weakness, sensory change, speech change. Endo/Heme/Allergies: No bruising or bleeding. No polydipsia. Pysch: no suicidality, no anxiety, no insomnia. All other systems reviewed and are negative. [facility] Medical History (Updated 08/13/24 @ 11:38 by Dejuan Esquivel MD) Foot pain ?M79.673 - Pain in unspecified foot (ICD-10) Abnormal gait ?R26.9 - Unspecified abnormalities of gait and mobility (ICD-10) Surgical History History of tonsillectomy (1969) ?Z90.89 - Acquired absence of other organs (ICD-10) History of right-sided carotid endarterectomy ?Z98.890 - Other specified postprocedural states (ICD-10) Social History (Updated 07/03/23 @ 13:18 by Viviane Medina ~ CTA) Narrative: SOCIAL HISTORY: He is single. Retired. One daughter living in [facility] that he does not see much. No longer working at [employer]. No longer working for the [employer]. 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 HABITS: Sporadic walking for exercise. Sporadic smoking in the past. He denies smoking at this point. No alcohol or recreational drug use. FAMILY HISTORY: No changes. Parents both . He did not know them well. Father around 80 of unknown cause. Mother around 70 of unknown cancer. Three sisters all living with borderline diabetes otherwise healthy. What is your current living situation?: I presently have a place to live Problems where you live: declined to answer In the past 12 months, utilities in danger of being shut off: no In past 12 months, lack of transportation kept you from medical appts, meetings, work, or getting things needed for daily living: no In the past 12 mos, have been you worried that your food would run out before you had money to buy more?: never true In the past 12 mos, the food you bought just didn't last and you didn't have money to buy more?: never true Smoking Status: Never smoker Do you use any of these nicotine containing products: None How often do you have a drink containing alcohol: never AUDIT-C Alcohol total score: 0 How often does anyone, including family, friends and others, physically hurt you : never How often does anyone, including family, friends and others, insult or talk down to you: never How often does anyone, including family, friends and others, threaten you with harm: never How often does anyone, including family, friends and others, scream or curse at you: never Exam Narrative: Exam Narrative: Constitutional: Well-developed, well-nourished, no acute distress. HEENT: Normocephalic, atraumatic. Neck: Normal range of motion. Nontender. Supple. Heart: Regular. No murmurs. Normal rate. Intact distal pulses. Lungs: Clear to auscultation. No chest discomfort. No wheezes, rhonchi, or r ales. Abdomen: Normal bowel sounds. Nontender. No rebound tenderness. Genitalia: Deferred. Back: No midline tenderness. Normal range of motion. Pain located in the low back radiating into the right buttock and down the right leg. He gets some relief by flexing his right hip. Extremities: Normal range of motion. No injury. Skin: Intact. No rash. Warm. No erythema or pallor. Neurologic: No altered sensation. No weakness. Alert and oriented. Psychiatric: No suicidality. No anxiety or depression. No insomnia. Nursing notes and vitals signs are reviewed. Const: Vital Signs, click to edit/add: Vital Signs - 24 hr 08/13/24 09:54 Temperature 98.2 F Pulse Rate [Pulse Oximeter] 93 Respiratory Rate 18 Blood Pressure [Ri ght Upper Arm] 179/79 H Pulse Oximetry 94 Oxygen Delivery Me thod Room Air Course Vital Signs Vital signs: Initial Vital Signs Temperature 98.2 F 08/13/24 09:54 Temperature Source Temporal Artery Scan 08/13/24 09:54 Pulse Rate 93 08/13/24 09:54 Respiratory Rate 18 08/13/24 09:54 Blood Pressure 179/79 H 08/13/24 09:54 Blood Pressure Mean 112 H 08/13/24 09:54 Blood Pressure Position Sitting 08/13/24 09:54 Pulse Oximetry 94 08/13/24 09:54 Oxygen Delivery Method Room Air 08/13/24 09:54 Vital Signs Temperature 98.2 F 08/13/24 09:54 Pulse Rate 93 08/13/24 09:54 Respiratory Rate 18 08/13/24 09:54 Blood Pressure 179/79 H 08/13/24 09:54 Pulse Oximetry 94 08/13/24 09:54 Oxygen Delivery Method Room Air 08/13/24 09:54 Temperature 98.2 F 08/13/24 09:54 Pulse Rate 93 08/13/24 09:54 Respiratory Rate 18 08/13/24 09:54 Blood Pressure 179/79 H 08/13/24 09:54 Pulse Oximetry 94 08/13/24 09:54 Oxygen Delivery Method Room Air 08/13/24 09:54 MDM - Back Pain/Injury MDM Narrative Medical decision making narrative: This patient comes in with pain typical of a lumbar radiculopathy. He has had symptoms like this in the past. There is no recent injury event that mandates imaging at this time. The patient will likely benefit from an MRI to guide more specific therapies if not improving. Today he received prescriptions for Toradol, Witt, gabapentin, Flexeril, and Medrol Dosepak. He understands that the steroid will cause his blood sugar to elevate. I advised him to follow-up with our spine clinic and provided information for making appointment for this to occur. Discharge Plan Discharge Clinical Impression: Lumbar radiculopathy Patient Disposition: Home, Self-Care Condition: Stable Additional Instructions: Take medications as needed and directed. Follow up with Spine Clinic for ongoing diagnosis and management. Call [phone] for appointment. Return if worsening. Prescriptions: New cyclobenzaprine 10 mg tablet 10 mg PO TID Qty: 20 0RF hydrocodone-acetaminophen 5-325 mg tablet 1 tab PO Q4-6H PRN (Reason: pain) Qty: 20 0RF ketorolac 10 mg tablet 10 mg PO Q8H 5 Days Qty: 15 0RF gabapentin 100 mg capsule 100 mg PO TID Qty: 30 2RF methylprednisolone [Medrol (Tae)] 4 mg tablets,dose pack See Rx Instructions .ROUTE .COMPLEX Qty: 21 0RF Rx Instructions: orally per package directions No Action aspirin 81 mg tablet,chewable 81 mg PO DAILY epinephrine 0.3 mg/0.3 mL auto-injector 0.3 ml IM .As Needed as needed PRN (Reason: anaphylaxis) Qty: 2 0RF metformin 1,000 mg tablet extended release 24 hr 1,000 mg PO QDAY Qty: 180 1RF (DME) Blood Glucose Meter Misc See Rx Instructions .ROUTE .MEDSUPPLY Qty: 1 0RF Rx Instructions: As directed (DME) Diabetic Test Strips Misc See Rx Instructions .ROUTE .MEDSUPPLY Qty: 100 3RF Rx Instructions: As directed (DME) lancets [Acti-Forest Lancets] 28 gauge misc See Rx Instructions .Route Qty: 100 3RF Rx Instructions: As directed chlorthalidone 25 mg tablet 12.5 mg PO QDAY Qty: 45 0RF Rx Instructions: Needs 6 mo supply for international travel. amlodipine 10 mg tablet 10 mg PO QDAY Qty: 90 0RF atorvastatin 40 mg tablet 40 mg PO QHS Qty: 90 0RF glipizide 10 mg tablet extended release 24hr 10 mg PO QDAY Qty: 90 0RF lisinopril 10 mg tablet 10 mg PO QDAY Qty: 90 0RF Follow Up/Referrals: Santi Juarez MD [Primary Care Provider] - Stand Alone Forms: [facility] Info Instructions
== END 2024-08-13 11:50 | disposition home or self-care (01) ==
LOC: ED 11:51
PROVIDERS: Emergency Provider Emergency Medicine Emergency Medical Services; PCP Family Medicine
DX: M54.16 Radiculopathy, lumbar region (principal)
CPT/HCPCS: 99283; 99284

== ENCOUNTER 2024-08-20 12:12 | Emergency (ER) | payer MEDICARE, BC, SELFPAY ==
[2024-08-20 12:20] VITALS: BP 123/65; PULSE 108; RESP 18; TEMP 36.6; O2SAT 99; BMI 25.7
--- OUTSIDE RECORDS SUMMARY | 2024-08-20 12:57 | XMS_ITS | Clinical Summary ---
Author Organization [place] Address [address] [facility] 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 Gender Identity Not on file Sexual Orientation Not on file Last Filed Vital Signs Vital Sign Reading Time Taken Comments Blood Pressure 122/78 09/10/2017 9:11 AM DISPATCH MANAGER Pulse 70 09/10/2017 9:11 AM DISPATCH MANAGER Temperature 36.7 C (98 F) 03/26/2013 9:28 AM CDT Respiratory Rate 18 03/26/2013 9:28 AM CDT Oxygen Saturation 98% 03/26/2013 9:28 AM CDT Inhaled Oxygen Concentration - - Weight 106.6 kg (235 lb) 09/10/2017 9:11 AM DISPATCH MANAGER Height 188 cm (6' 2) 09/10/2017 9:11 AM DISPATCH MANAGER Body Mass Index 30.17 09/10/2017 9:11 AM DISPATCH MANAGER Plan of Treatment Not on file Insurance MEDICARE Care Teams Labor Employment Associate Relationship Specialty Start Date End Date Guero Hutchinsno MD [address] [place] [address] [place] [address] PCP - General Urology 11/14/15
--- OUTSIDE RECORDS SUMMARY | 2024-08-20 12:57 | XMS_ITS | Referral Summary ---
Author Organization [place] Address [address] 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 Gender Identity Not on file Sexual Orientation Not on file Last Filed Vital Signs Vital Sign Reading Time Taken Comments Blood Pressure 122/78 09/10/2017 9:11 AM MOLDER MACHINE TENDER Pulse 70 09/10/2017 9:11 AM MOLDER MACHINE TENDER Temperature 36.7 C (98 F) 03/26/2013 9:28 AM CDT Respiratory Rate 18 03/26/2013 9:28 AM CDT Oxygen Saturation 98% 03/26/2013 9:28 AM CDT Inhaled Oxygen Concentration - - Weight 106.6 kg (235 lb) 09/10/2017 9:11 AM MOLDER MACHINE TENDER Height 188 cm (6' 2) 09/10/2017 9:11 AM MOLDER MACHINE TENDER Body Mass Index 30.17 09/10/2017 9:11 AM MOLDER MACHINE TENDER Plan of Treatment Not on file Insurance MEDICARE RISK MANAGEMENT Care Teams Under Water Assistant Relationship Specialty Start Date End Date Guero Hutchinson MD [address] [place] [address] PCP - General Urology 11/14/15
--- OUTSIDE RECORDS SUMMARY | 2024-08-20 12:57 | XMS_ITS | Clinical Summary ---
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 Right: Carotid Artery [employer] 08/08/2026 0.8P8 / / [id number] Procedures Procedure Name Priority Date/Time Associated Diagnosis [...] candidate for conscious sedation. 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 All rights reserved. The codes documented in this report are preliminary and upon computer language coder reviewmay be revised to meet current compliance requirements. Scope In: 10:44:45 AM Scope Withdrawal Time 0 hours 10 minutes 40 seconds Scope Out: 10:59:10 AM Moi Lui MD PROCEDURE ORD Final Res ult from Last 3 Months or Most Recently Relevant to Health Maintenance Insurance [facility]REFERRED [facility] MEDICARE PART B HB ONLY [facility] MEDICARE PB ONLY MEDICARE PART A HB ONLY Advance Directives * Full Code (Latest Code Status on File) Date Activated Date Inactivated Comments 01/03/2021 6:00 AM 01/04/2021 1:54 PM Question Answer Comments Code Status Discussion: Not Discussed Care Teams Filler Spreader Relationship Specialty Start Date End Date Santi Juarez MD [address] [place] [address] PCP - General Family Practice 12/07/20
--- NOTE | 2024-08-20 13:06 | CRLHL7_ITS ---
For Patients: As a result of the Century Cures Act, medical imaging exams and procedure reports are released immediately into your electronic medical record. You may view this report before your referring provider. If you have questions, please contact your health care provider. INDICATION: Leg pain and swelling TECHNIQUE: Ultrasound venous duplex lower right extremity. Compression venous exam was performed using padgett-scale, color Doppler, and spectral Doppler imaging. COMPARISON: None. FINDINGS: Sonographic imaging demonstrates the right common femoral, deep femoral, superficial femoral, popliteal, posterior tibial and greater saphenous and the contralateral left common femoral veins to be fully compressible with normal color Doppler blood flow. IMPRESSION: Normal right lower extremity venous ultrasound, no sign of deep venous thrombosis. Dictated by Chris Ziegler MD @ 08/20/2024 1:49:43 PM (Electronically Signed)
--- NOTE | 2024-08-20 14:29 | ED_ITS ---
HPI - General Adult General Date Seen: 08/20/24 Chief complaint: Neuro Symptoms/Altered Deficit Stated complaint: Right side numbness/weakness Time Seen by Provider: 08/20/24 12:15 Source: patient Mode of arrival: ambulatory Limitations: no limitations History of Present Illness HPI narrative: Patient is a 74-year-old male presenting for pain and numbness to his right lower extremity. He states the pain is in his posterior right thigh and when he pointed out seem to go along his hamstring. Also states his posterior thigh and calf have been numb. All the symptoms have been going on for several months and his primary care provider is aware of it. He has not had any imaging done yet. He has done physical therapy previously which has helped at 1st but symptoms did eventually come back. States he has some difficulty walking because he cannot put much pressure on his right leg. He came in today because symptoms have not been going away since they came back after rehab. Denies any other injuries. States he feels like all his weakness is due to the pain and the hamstring. No other injuries noted. Related Data Home Medications ?Medication ?Instructions ?Recorded ?Confirmed aspirin 81 mg chewable tablet 81 mg PO DAILY 06/06/22 03/10/24 Previous Rx's ?Medication ?Instructions ?Recorded epinephrine 0.3 mg/0.3 mL 0.3 ml IM .As Needed as needed PRN 07/03/23 injection, auto-injector anaphylaxis #2 ea Blood Glucose Meter #1 ea 01/01/24 Diabetic Test Strips #100 ea 01/01/24 lancets 28 gauge (Acti-Forest #100 ea 01/01/24 Lancets) metformin 1,000 mg tablet,extended 1,000 mg PO QDAY #180 tabs 01/01/24 release 24hr (osmotic) chlorthalidone 25 mg tablet 12.5 mg (1/2 x 25 mg) PO QDAY #45 07/15/24 tabs amlodipine 10 mg tablet 10 mg PO QDAY #90 tabs 07/30/24 atorvastatin 40 mg tablet 40 mg PO QHS #90 tabs 07/30/24 glipizide 10 mg tablet, extended 10 mg PO QDAY #90 tabs 07/30/24 release 24 hr lisinopril 10 mg tablet 10 mg PO QDAY #90 tabs 07/30/24 cyclobenzaprine 10 mg tablet 10 mg PO TID #20 tabs 08/13/24 gabapentin 100 mg capsule 100 mg PO TID #30 caps 08/13/24 hydrocodone 5 mg-acetaminophen 325 1 tab PO Q4-6H PRN pain #20 tabs 08/13/24 mg tablet ketorolac 10 mg tablet 10 mg PO Q8H 5 days #15 tabs 08/13/24 methylprednisolone 4 mg tablets in See Rx Instructions PO .COMPLEX 08/13/24 a dose pack (Medrol (Tae)) #21 ea oxycodone 5 mg tablet 5 mg PO Q6H PRN pain #8 tabs 08/20/24 Allergies Allergy/AdvReac Type Severity Reaction Status Date / Time Bee venom Allergy Severe Difficulty Uncoded 03/10/24 10:03 Swallowing Penicillin Allergy Unknown Uncoded 03/10/24 10:03 Review of Systems Status of ROS: Reports: 10 or more systems reviewed and unremarkable except as noted in History and below [facility] Medical History Foot pain ?M79.673 - Pain in unspecified foot (ICD-10) Abnormal gait ?R26.9 - Unspecified abnormalities of gait and mobility (ICD-10) Surgical History History of tonsillectomy (1969) ?Z90.89 - Acquired absence of other organs (ICD-10) History of right-sided carotid endarterectomy ?Z98.890 - Other specified postprocedural states (ICD-10) Social History Narrative: SOCIAL HISTORY: He is single. Retired. One daughter living in [facility] that he does not see much. No longer working at [employer]. No longer working for the [employer] [facility] [employer]. 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 HABITS: Sporadic walking for exercise. Sporadic smoking in the past. He denies smoking at this point. No alcohol or recreational drug use. FAMILY HISTORY: No changes. Parents both . He did not know them well. Father around 80 of unknown cause. Mother around 70 of unknown cancer. Three sisters all living with borderline diabetes otherwise healthy. What is your current living situation?: I presently have a place to live Problems where you live: declined to answer In the past 12 months, utilities in danger of being shut off: no In past 12 months, lack of transportation kept you from medical appts, meetings, work, or getting things needed for daily living: no In the past 12 mos, have been you worried that your food would run out before you had money to buy more?: never true In the past 12 mos, the food you bought just didn't last and you didn't have money to buy more?: never true Smoking Status: Never smoker Do you use any of these nicotine containing products: None How often do you have a drink containing alcohol: never AUDIT-C Alcohol total score: 0 How often does anyone, including family, friends and others, physically hurt you : never How often does anyone, including family, friends and others, insult or talk down to you: never How often does anyone, including family, friends and others, threaten you with harm: never How often does anyone, including family, friends and others, scream or curse at you: never Exam Narrative: Exam Narrative: Const: Well-nourished, Well-developed, in no distress Eyes: PERRL, no conjunctival injection, and symmetrical lids HENT: Atraumatic external nose and ears. Moist mucous membranes. MSK:Extremities w/o deformity, does have a limping gait. Normal movement of lower extremities other than difficulty flexing knee against resistance secondary to pain. Skin: Warm, Dry. No rashes or lesions. Neuro: Normal Muscle tone, No focal neurological deficits. Psych: Awake, Alert, & Oriented x3. Appropriate mood and affect. Const: Vital Signs, click to edit/add: Vital Signs - 24 hr 08/20/24 12:20 Temperature 97.8 F Pulse Rate [Pulse Oximeter] 108 H Respiratory Rate 18 Blood Pressure [Ri ght Upper Arm] 123/65 Pulse Oximetry 99 Oxygen Delivery Me thod Room Air Course Vital Signs Vital signs: Initial Vital Signs Temperature 97.8 F 08/20/24 12:20 Temperature Source Oral 08/20/24 12:20 Pulse Rate 108 H 08/20/24 12:20 Pulse Rhythm Regular 08/20/24 12:20 Respiratory Rate 18 08/20/24 12:20 Blood Pressure 123/65 08/20/24 12:20 Blood Pressure Mean 84 08/20/24 12:20 Blood Pressure Position Sitting 08/20/24 12:20 Pulse Oximetry 99 08/20/24 12:20 Oxygen Delivery Method Room Air 08/20/24 12:20 Vital Signs Temperature 97.8 F 08/20/24 12:20 Pulse Rate 108 H 08/20/24 12:20 Respiratory Rate 18 08/20/24 12:20 Blood Pressure 123/65 08/20/24 12:20 Pulse Oximetry 99 08/20/24 12:20 Oxygen Delivery Method Room Air 08/20/24 12:20 Temperature 97.8 F 08/20/24 12:20 Pulse Rate 108 H 08/20/24 12:20 Respiratory Rate 18 08/20/24 12:20 Blood Pressure 123/65 08/20/24 12:20 Pulse Oximetry 99 08/20/24 12:20 Oxygen Delivery Method Room Air 08/20/24 12:20 Medical Decision Making MDM Narrative Medical decision making narrative: Patient is a 74-year-old male presenting for right leg pain and numbness. This numbness has been going on since last October she status. Does not appear to be in acute neurological issue requiring acute imaging. I believe his symptoms are all most likely related to a hamstring injury as that is exactly where his pain is. His weakness is associated with pain and is only noted when he tries to flex his knee. Will do an ultrasound to make sure there is not any underlying blood clots. He had to stop taking ibuprofen and naproxen as he has been using it for too long bring to his PCP states. I will prescribe him a few oxycodone. We were able to schedule him appointment with Orthopedics next week. Ultrasound shows no signs of blood clot. He is agreeable for discharge. Imaging Data Venous US: Attestation: I have reviewed the pertinent imaging results. Radiologist's impression: Normal right lower extremity venous ultrasound, no sign of deep venous thrombosis. Dictated by Chris Ziegler MD @ 08/20/2024 1:49:43 PM Discharge Plan Discharge Clinical Impression: Hamstring injury Qualifiers: Encounter type: initial encounter Laterality: right Qualified Code(s): S76.301A - Unspecified injury of muscle, fascia and tendon of the posterior muscle group at thigh level, right thigh, initial encounter Patient Disposition: Home, Self-Care Condition: Stable Instructions: Hamstring Injury (ED) Additional Instructions: Use the oxycodone as needed for pain. They can make you drowsy and dizzy so be careful when you take them. You will need to follow up with the primary care provider if he needs more pain medication as we would not be of a provided further oxycodone out of our emergency department Follow up appointment scheduled for orthopedics on August 28, at 8:40AM, with arrival at 8:30AM. [facility] [address] [place] [id number] Prescriptions: New oxycodone 5 mg tablet 5 mg PO Q6H PRN (Reason: pain) Qty: 8 0RF No Action aspirin 81 mg tablet,chewable 81 mg PO DAILY epinephrine 0.3 mg/0.3 mL auto-injector 0.3 ml IM .As Needed as needed PRN (Reason: anaphylaxis) Qty: 2 0RF metformin 1,000 mg tablet extended release 24 hr 1,000 mg PO QDAY Qty: 180 1RF (DME) Blood Glucose Meter Misc See Rx Instructions .ROUTE .MEDSUPPLY Qty: 1 0RF Rx Instructions: As directed (DME) Diabetic Test Strips Misc See Rx Instructions .ROUTE .MEDSUPPLY Qty: 100 3RF Rx Instructions: As directed (DME) lancets [Acti-Forest Lancets] 28 gauge misc See Rx Instructions .Route Qty: 100 3RF Rx Instructions: As directed cyclobenzaprine 10 mg tablet 10 mg PO TID Qty: 20 0RF hydrocodone-acetaminophen 5-325 mg tablet 1 tab PO Q4-6H PRN (Reason: pain) Qty: 20 0RF ketorolac 10 mg tablet 10 mg PO Q8H 5 Days Qty: 15 0RF gabapentin 100 mg capsule 100 mg PO TID Qty: 30 2RF methylprednisolone [Medrol (Tae)] 4 mg tablets,dose pack See Rx Instructions .ROUTE .COMPLEX Qty: 21 0RF Rx Instructions: orally per package directions chlorthalidone 25 mg tablet 12.5 mg PO QDAY Qty: 45 0RF Rx Instructions: Needs 6 mo supply for international travel. amlodipine 10 mg tablet 10 mg PO QDAY Qty: 90 0RF atorvastatin 40 mg tablet 40 mg PO QHS Qty: 90 0RF glipizide 10 mg tablet extended release 24hr 10 mg PO QDAY Qty: 90 0RF lisinopril 10 mg tablet 10 mg PO QDAY Qty: 90 0RF Follow Up/Referrals: Santi Juarez MD [Primary Care Provider] - Stand Alone Forms: MyHealth Info Instructions
== END 2024-08-20 14:51 | disposition home or self-care (01) ==
PROVIDERS: Emergency Provider Student in an Organized Health Care Education/Training Program; PCP Family Medicine
DX: S76.301A Unspecified injury of muscle, fascia and tendon of the posterior muscle group at thigh level, right thigh, initial encounter (principal); M79.651 Pain in right thigh
CPT/HCPCS: 93971; 99283

== ENCOUNTER 2024-08-22 15:04 | Emergency (ER) | payer MEDICARE, BC, SELFPAY ==
--- OUTSIDE RECORDS SUMMARY | 2024-08-22 15:05 | XMS_ITS | Clinical Summary ---
Author Organization [employer] [facility] Address [place], [place] [address] Care Team Providers Care Supervisor Forming And Tempering Name Role Phone Santi Juarez MD Primary Care Provider [phone] Allergies Active Allergy Reactions Criticality Noted Date [...] on file Legal Sex Male 7:26 PM APPLICATIONS SYSTEM ANALYST Gender Identity Not on file Sexual Orientation [...] Completed 11/17/2004 Medical Devices Implanted Type Area Learn To Swim Instructor Device Identifier Shelf Expiration Date Model / Serial / Lot Tissue Pericardium 0.8x8cm Xenosure - [id number] Implanted:Qty: 1 on 01/03/2021 by Cesar Jacobs MD at [facility] Right: Carotid Artery [employer] 08/08/2026 0.8P8 / / [id number] Procedures Procedure Name Priority Date/Time Associated Diagnosis [...] candidate for conscious sedation. 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 All rights reserved. The codes documented in this report are preliminary and upon office support clerk reviewmay be revised to meet current compliance requirements. Scope In: 10:44:45 AM Scope Withdrawal Time 0 hours 10 minutes 40 seconds Scope Out: 10:59:10 AM Moi Lui MD PROCEDURE ORD Final Res ult from Last 3 Months or Most Recently Relevant to Health Maintenance Insurance PREFERRED ONE [facility] MEDICARE PART B HB ONLY [facility] MEDICARE PB ONLY MEDICARE PART A HB ONLY Advance Directives * Full Code (Latest Code Status on File) Date Activated Date Inactivated Comments 01/03/2021 6:00 AM 01/04/2021 1:54 PM Question Answer Comments Code Status Discussion: Not Discussed Care Teams Supervisor Forming And Tempering Relationship Specialty Start Date End Date Santi Juarez MD [address] [place] [address] PCP - General Family Practice 12/07/20
--- OUTSIDE RECORDS SUMMARY | 2024-08-22 15:05 | XMS_ITS | Referral Summary ---
Author Organization [place] Address [address] [facility] [place] [address] Care Team Providers Care Rug Cleaner Helper Name Role Phone Guero Hutchinson MD [...] on file Legal Sex Male 3:05 AM BACKHOE OPERATOR Gender Identity Not on file Sexual Orientation Not on file Last Filed Vital Signs Vital Sign Reading Time Taken Comments Blood Pressure 122/78 09/10/2017 9:11 AM BACKHOE OPERATOR Pulse 70 09/10/2017 9:11 AM BACKHOE OPERATOR Temperature 36.7 C (98 F) 03/26/2013 9:28 AM CDT Respiratory Rate 18 03/26/2013 9:28 AM CDT Oxygen Saturation 98% 03/26/2013 9:28 AM CDT Inhaled Oxygen Concentration - - Weight 106.6 kg (235 lb) 09/10/2017 9:11 AM BACKHOE OPERATOR Height 188 cm (6' 2) 09/10/2017 9:11 AM BACKHOE OPERATOR Body Mass Index 30.17 09/10/2017 9:11 AM BACKHOE OPERATOR Plan of Treatment Not on file Insurance MEDICARE RISK MANAGEMENT Care Teams Rug Cleaner Helper Relationship Specialty Start Date End Date Guero Hutchinson MD [address] [place] [address] PCP - General Urology 11/14/15
--- OUTSIDE RECORDS SUMMARY | 2024-08-22 15:05 | XMS_ITS | Continuity of Care Document ---
Author Name [facility] Address Unknown Organization Unknown Address Unknown Procedures FILTER APPLIED:Only known Procedures with Onset Date within the last 5 years Procedure Date Procedure Provider Additiona l Information Status COMPREHEN METABOLIC PANEL (38178) Completed LIPID PANEL (97616) Comp leted ASSAY OF PSA TOTAL (83623) Completed ASSAY OF URINE CREATININE (72030) Completed UR ALBUMIN QUANTITATIVE (38652) Completed Encounters FILTER APPLIED:Only known Encounters with Admission Date within the last 5 years Encounter Location Admission Discharge Billing Code Senior Supply Chain Analyst Maureen ttterri Outpatient Santi Juarez
--- OUTSIDE RECORDS SUMMARY | 2024-08-22 15:05 | XMS_ITS | Clinical Summary ---
Author Organization [place] Address [address] [place] [address] Care Team Providers Care Central Office Mechanic Name Role Phone Guero Hutchinson MD Primary [...] on file Legal Sex Male 3:05 AM BANKING SPECIALIST Gender Identity Not on file Sexual Orientation Not on file Last Filed Vital Signs Vital Sign Reading Time Taken Comments Blood Pressure 122/78 09/10/2017 9:11 AM BANKING SPECIALIST Pulse 70 09/10/2017 9:11 AM BANKING SPECIALIST Temperature 36.7 C (98 F) 03/26/2013 9:28 AM CDT Respiratory Rate 18 03/26/2013 9:28 AM CDT Oxygen Saturation 98% 03/26/2013 9:28 AM CDT Inhaled Oxygen Concentration - - Weight 106.6 kg (235 lb) 09/10/2017 9:11 AM BANKING SPECIALIST Height 188 cm (6' 2) 09/10/2017 9:11 AM BANKING SPECIALIST Body Mass Index 30.17 09/10/2017 9:11 AM BANKING SPECIALIST Plan of Treatment Not on file Insurance MEDICARE Care Teams Central Office Mechanic Relationship Specialty Start Date End Date Guero Hutchinson MD [address] [place] [address] [place] [id number] PCP - General Urology 11/14/15
[2024-08-22 15:13] VITALS: BP 167/89; PULSE 98; RESP 18; TEMP 36.4; O2SAT 98; BMI 25.7
[2024-08-22 15:51] LABS: Appearance Urine Clear (Clear); Bilirubin Urine Negative (Negative); Blood Urine Negative (Negative); Color Urine Yellow (Yellow); Glucose Urine Negative (Negative); Ketones Urine Negative (Negative); Leukocyte Esterase Urine Trace (Negative); Nitrite Urine Negative (Negative); Protein Urine Trace (Negative); Urobilinogen Urine 0.2 (0.2-1.0); pH Urine 6.5 (5.0-8.5)
[2024-08-22 15:54] LABS: Bacteria Urine Few; RBC Urine 0-2 (0-2); WBC Urine 0-2 (0-5)
--- OUTSIDE RECORDS SUMMARY | 2024-08-22 17:56 | XMS_ITS | Clinical Summary ---
Author Organization [place] Address [address] [facility] [place] [address] Care Team Providers Care Matcher Operator Name Role Phone Guero Hutchinson MD Primary [...] on file Legal Sex Male 3:05 AM RECONNAISSANCE CREWMEMBER Gender Identity Not on file Sexual Orientation Not on file Last Filed Vital Signs Vital Sign Reading Time Taken Comments Blood Pressure 122/78 09/10/2017 9:11 AM RECONNAISSANCE CREWMEMBER Pulse 70 09/10/2017 9:11 AM RECONNAISSANCE CREWMEMBER Temperature 36.7 C (98 F) 03/26/2013 9:28 AM CDT Respiratory Rate 18 03/26/2013 9:28 AM CDT Oxygen Saturation 98% 03/26/2013 9:28 AM CDT Inhaled Oxygen Concentration - - Weight 106.6 kg (235 lb) 09/10/2017 9:11 AM RECONNAISSANCE CREWMEMBER Height 188 cm (6' 2) 09/10/2017 9:11 AM RECONNAISSANCE CREWMEMBER Body Mass Index 30.17 09/10/2017 9:11 AM RECONNAISSANCE CREWMEMBER Plan of Treatment Not on file Insurance MEDICARE Care Teams Matcher Operator Relationship Specialty Start Date End Date Guero Hutchinson MD [address] [place] [address] [place] [address] PCP - General Urology 11/14/15
--- OUTSIDE RECORDS SUMMARY | 2024-08-22 17:56 | XMS_ITS | Clinical Summary ---
Author Organization [facility] Address [place], [place] [address] Care Team Providers Care Electrical Development Engineer Name Role Phone Santi Juarez MD Primary Care Provider [phone] Allergies Active Allergy Reactions Criticality Noted Date [...] on file Legal Sex Male 7:26 PM GEOLOGICAL ENGINEER Gender Identity Not on file Sexual Orientation [...] Completed 11/17/2004 Medical Devices Implanted Type Area Environmental Professional Device Identifier Shelf Expiration Date Model / Serial / Lot Tissue Pericardium 0.8x8cm Xenosure - [id number] Implanted:Qty: 1 on 01/03/2021 by Cesar Jacobs MD at [facility] Right: Carotid Artery [employer] 08/08/2026 0.8P8 / / [id number] Procedures Procedure Name Priority Date/Time Associated Diagnosis [...] candidate for conscious sedation. The endoscope PCF-H190L [id number] was passed through the anus andadvanced to [...] 9:22 AM Procedure Code(s): --- Professional --- 79042, Colonoscopy, flexible; with removalof tumor(s), polyp(s), or other lesion(s) bysnare technique Diagnosis Code(s): --- Professional --- Z86.010, Personal history of colonicpolyps D12.2, Benign neoplasm of ascending colon K57.30, Diverticulosis of large intestine without perforation or abscess withoutbleeding CPT copyright 2021 [employer]. All rights reserved. The codes documented in this report are preliminary and upon spot facer reviewmay be revised to meet current compliance requirements. Scope In: 10:44:45 AM Scope Withdrawal Time 0 hours 10 minutes 40 seconds Scope Out: 10:59:10 AM Moi Lui MD PROCEDURE ORD Final Res ult from Last 3 Months or Most Recently Relevant to Health Maintenance Insurance PREFERRED ONE [facility] MEDICARE PART B HB ONLY [facility] MEDIC[facility] PB ONLY MEDICARE PART A HB ONLY Advance Directives * Full Code (Latest Code Status on File) Date Activated Date Inactivated Comments 01/03/2021 6:00 AM 01/04/2021 1:54 PM Question Answer Comments Code Status Discussion: Not Discussed Care Teams Electrical Development Engineer Relationship Specialty Start Date End Date Sanit Juarez MD [address] [place] [address] PCP - General Family Practice 12/07/20
--- OUTSIDE RECORDS SUMMARY | 2024-08-22 17:56 | XMS_ITS | Continuity of Care Document ---
Author Name Nw[facility]IN User [facility] Address Unknown Organization Unknown Address Unknown Procedures FILTER APPLIED:Only known Procedures with Onset Date within the last 5 years Procedure Date Procedure Provider Additiona l Information Status COMPREHEN METABOLIC PANEL (88523) Completed LIPID PANEL (41393) Comp leted ASSAY OF PSA TOTAL (81433) Completed ASSAY OF URINE CREATININE (47463) Completed UR ALBUMIN QUANTITATIVE (37265) Completed Encounters FILTER APPLIED:Only known Encounters with Admission Date within the last 5 years Encounter Location Admission Discharge Billing Code [facility] Outpatient Santi Juarez
--- OUTSIDE RECORDS SUMMARY | 2024-08-22 17:56 | XMS_ITS | Referral Summary ---
Author Organization [place] Address [address] [place] [address] Care Team Providers Care Director Of Investigations Name Role Phone Guero Hutchinson MD Primary [...] on file Legal Sex Male 3:05 AM AUDIO RECORDING ENGINEER Gender Identity Not on file Sexual Orientation Not on file Last Filed Vital Signs Vital Sign Reading Time Taken Comments Blood Pressure 122/78 09/10/2017 9:11 AM AUDIO RECORDING ENGINEER Pulse 70 09/10/2017 9:11 AM AUDIO RECORDING ENGINEER Temperature 36.7 C (98 F) 03/26/2013 9:28 AM CDT Respiratory Rate 18 03/26/2013 9:28 AM CDT Oxygen Saturation 98% 03/26/2013 9:28 AM CDT Inhaled Oxygen Concentration - - Weight 106.6 kg (235 lb) 09/10/2017 9:11 AM AUDIO RECORDING ENGINEER Height 188 cm (6' 2) 09/10/2017 9:11 AM AUDIO RECORDING ENGINEER Body Mass Index 30.17 09/10/2017 9:11 AM AUDIO RECORDING ENGINEER Plan of Treatment Not on file Insurance MEDICARE RISK MANAGEMENT Care Teams Director Of Investigations Relationship Specialty Start Date End Date Guero Hutchinson MD [address] [place] [address] PCP - General Urology 11/14/15
--- NOTE | 2024-08-22 18:09 | ED_ITS ---
HPI - General Adult General Date Seen: 08/22/24 Chief complaint: Urogenital Problems, Male Stated complaint: Trouble urinating Time Seen by Provider: 08/22/24 17:02 History of Present Illness HPI narrative: Patient is a 74-year-old male who says he has not really been able to void well since , presents to the ER on Saturday. He is getting small amounts out, was able to provide a urine sample, but has not felt like he has been emptying his bladder. Now he has quite a bit of abdominal discomfort. He has not had fevers or hematuria, did feel like he was having some dysuria. He has not had this problem before. No back pain or trauma. Related Data Home Medications ?Medication ?Instructions ?Recorded ?Confirmed aspirin 81 mg chewable tablet 81 mg PO DAILY 06/06/22 08/22/24 Previous Rx's ?Medication ?Instructions ?Recorded epinephrine 0.3 mg/0.3 mL 0.3 ml IM .As Needed as needed PRN 07/03/23 injection, auto-injector anaphylaxis #2 ea Blood Glucose Meter #1 ea 01/01/24 Diabetic Test Strips #100 ea 01/01/24 lancets 28 gauge (Acti-Forest #100 ea 01/01/24 Lancets) metformin 1,000 mg tablet,extended 1,000 mg PO QDAY #180 tabs 01/01/24 release 24hr (osmotic) chlorthalidone 25 mg tablet 12.5 mg (1/2 x 25 mg) PO QDAY #45 07/15/24 tabs amlodipine 10 mg tablet 10 mg PO QDAY #90 tabs 07/30/24 atorvastatin 40 mg tablet 40 mg PO QHS #90 tabs 07/30/24 glipizide 10 mg tablet, extended 10 mg PO QDAY #90 tabs 07/30/24 release 24 hr lisinopril 10 mg tablet 10 mg PO QDAY #90 tabs 07/30/24 cyclobenzaprine 10 mg tablet 10 mg PO TID #20 tabs 08/13/24 gabapentin 100 mg capsule 100 mg PO TID #30 caps 08/13/24 ketorolac 10 mg tablet 10 mg PO Q8H 5 days #15 tabs 08/13/24 methylprednisolone 4 mg tablets in See Rx Instructions PO .COMPLEX 08/13/24 a dose pack (Medrol (Tae)) #21 ea oxycodone 5 mg tablet 5 mg PO Q6H PRN pain #8 tabs 08/20/24 Allergies Allergy/AdvReac Type Severity Reaction Status Date / Time Bee venom Allergy Severe Difficulty Uncoded 03/10/24 10:03 Swallowing Penicillin Allergy Unknown Uncoded 03/10/24 10:03 Review of Systems Status of ROS: Reports: 6 or more systems reviewed and unremarkable except as noted in History and below PFSH PFS Medical History Foot pain ?M79.673 - Pain in unspecified foot (ICD-10) Abnormal gait ?R26.9 - Unspecified abnormalities of gait and mobility (ICD-10) Surgical History History of tonsillectomy (1968) ?Z90.89 - Acquired absence of other organs (ICD-10) History of right-sided carotid endarterectomy ?Z98.890 - Other specified postprocedural states (ICD-10) Social History Narrative: SOCIAL HISTORY: He is single. Retired. One daughter living in [facility] that he does not see much. No longer working at [employer]. No longer working for the [employer]. 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 HABITS: Sporadic walking for exercise. Sporadic smoking in the past. He denies smoking at this point. No alcohol or recreational drug use. FAMILY HISTORY: No changes. Parents both . He did not know them well. Father around 80 of unknown cause. Mother around 70 of unknown cancer. Three sisters all living with borderline diabetes otherwise healthy. What is your current living situation?: I presently have a place to live Problems where you live: declined to answer In the past 12 months, utilities in danger of being shut off: no In past 12 months, lack of transportation kept you from medical appts, meetings, work, or getting things needed for daily living: no In the past 12 mos, have been you worried that your food would run out before you had money to buy more?: never true In the past 12 mos, the food you bought just didn't last and you didn't have money to buy more?: never true Smoking Status: Former smoker Do you use any of these nicotine containing products: None How often do you have a drink containing alcohol: never AUDIT-C Alcohol total score: 0 Non-prescribed substance use: denies use How often does anyone, including family, friends and others, physically hurt you : never How often does anyone, including family, friends and others, insult or talk down to you: never How often does anyone, including family, friends and others, threaten you with harm: never How often does anyone, including family, friends and others, scream or curse at you: never Exam Narrative: Exam Narrative: In general, alert, well-appearing male. Abdomen: He has what feels like a distended bladder and some tenderness. Skin: Warm dry well perfused. Neurologic: He is alert, conversant, gait stable. Const: Vital Signs, click to edit/add: Vital Signs - 24 hr 08/22/24 15:13 Temperature 97.6 F Pulse Rate [Pulse Oximeter] 98 Respiratory Rate 18 Blood Pressure [Ri ght Upper Arm] 167/89 H Pulse Oximetry 98 Oxygen Delivery Me thod Room Air Documenting provider has reviewed patient's vital signs: yes Course Course ED Course: We placed a Fragoso catheter here and had a little over 2000 mL of urine out. He feels significantly improved. Discussed that symptoms are most likely prostatic in etiology, would recommend leaving the catheter in place for now. We did do UA which was negative, no blood and no white blood cells. Doubt urinary tract infection. Culture pending. Asked him to follow up with his primary clinic next week for recheck and trial of void. Urology number provided as I would recommend that he make a follow-up appointment with them as well. Return any time if he has new or worsening symptoms, fevers, problems with the catheter, etcetera. Vital Signs Vital signs: Initial Vital Signs Temperature 97.6 F 08/22/24 15:13 Temperature Source Temporal Artery Scan 08/22/24 15:13 Pulse Rate 98 08/22/24 15:13 Pulse Rhythm Regular 08/22/24 15:13 Respiratory Rate 18 08/22/24 15:13 Blood Pressure 167/89 H 08/22/24 15:13 Blood Pressure Mean 115 H 08/22/24 15:13 Blood Pressure Position Sitting 08/22/24 15:13 Pulse Oximetry 98 08/22/24 15:13 Oxygen Delivery Method Room Air 08/22/24 15:13 Vital Signs Temperature 97.6 F 08/22/24 15:13 Pulse Rate 98 08/22/24 15:13 Respiratory Rate 18 08/22/24 15:13 Blood Pressure 167/89 H 08/22/24 15:13 Pulse Oximetry 98 08/22/24 15:13 Oxygen Delivery Method Room Air 08/22/24 15:13 Temperature 97.6 F 08/22/24 15:13 Pulse Rate 98 08/22/24 15:13 Respiratory Rate 18 08/22/24 15:13 Blood Pressure 167/89 H 08/22/24 15:13 Pulse Oximetry 98 08/22/24 15:13 Oxygen Delivery Method Room Air 08/22/24 15:13 Medical Decision Making Lab Data Labs: Lab Results 08/22/24 Range/Units 15:37 Urine Color Yellow (Yellow) Urine Appearance Clear (Clear) Urine pH 6.5 (5.0-8.5) Ur Specific Garibaldi 1.020 (1.000-1.030) Urine Protein Trace A (Negative) Urine Glucose (UA) Negative (Negative) Urine Ketones Negative (Negative) Urine Blood Negative (Negative) Urine Nitrite Negative (Negative) Urine Bilirubin Negative (Negative) Urine Urobilinogen 0.2 (0.2-1.0) Ur Leukocyte Esterase Trace A (Negative) Urine RBC 0-2 (0-2) Urine WBC 0-2 (0-5) Ur Squamous Epith Cells None (None-Few) Urine Bacteria Few A (None) Discharge Plan Discharge Clinical Impression: Acute urinary retention Patient Disposition: Home, Self-Care Condition: Improved Instructions: Urinary Retention in Men (ED), Fragoso Catheter Placement and Care (ED) Additional Instructions: Your symptoms today are likely due to prostatic enlargement. You had over 2 L of urine in your bladder, and I would recommend that the catheter stay in place for now otherwise you are likely to run into the same problem over the next couple of days. You can make an appointment with your primary clinic next week, they can help with a trial of removing the catheter. You should make an appointment to follow-up with the urologist to discuss these symptoms further. You can call [place] [facility] at [phone]. If in the meantime you have problems with your catheter, it isn't draining properly, you have bleeding, fevers, or other worsening, return to the ER at any time. Prescriptions: No Action aspirin 81 mg tablet,chewable 81 mg PO DAILY epinephrine 0.3 mg/0.3 mL auto-injector 0.3 ml IM .As Needed as needed PRN (Reason: anaphylaxis) Qty: 2 0RF metformin 1,000 mg tablet extended release 24 hr 1,000 mg PO QDAY Qty: 180 1RF (DME) Blood Glucose Meter Misc See Rx Instructions .ROUTE .MEDSUPPLY Qty: 1 0RF Rx Instructions: As directed (DME) Diabetic Test Strips Misc See Rx Instructions .ROUTE .MEDSUPPLY Qty: 100 3RF Rx Instructions: As directed (DME) lancets [Acti-Forest Lancets] 28 gauge misc See Rx Instructions .Route Qty: 100 3RF Rx Instructions: As directed cyclobenzaprine 10 mg tablet 10 mg PO TID Qty: 20 0RF ketorolac 10 mg tablet 10 mg PO Q8H 5 Days Qty: 15 0RF gabapentin 100 mg capsule 100 mg PO TID Qty: 30 2RF methylprednisolone [Medrol (Tae)] 4 mg tablets,dose pack See Rx Instructions .ROUTE .COMPLEX Qty: 21 0RF Rx Instructions: orally per package directions oxycodone 5 mg tablet 5 mg PO Q6H PRN (Reason: pain) Qty: 8 0RF chlorthalidone 25 mg tablet 12.5 mg PO QDAY Qty: 45 0RF Rx Instructions: Needs 6 mo supply for international travel. amlodipine 10 mg tablet 10 mg PO QDAY Qty: 90 0RF atorvastatin 40 mg tablet 40 mg PO QHS Qty: 90 0RF glipizide 10 mg tablet extended release 24hr 10 mg PO QDAY Qty: 90 0RF lisinopril 10 mg tablet 10 mg PO QDAY Qty: 90 0RF Follow Up/Referrals: Santi Juarez MD [Primary Care Provider] - Stand Alone Forms: [facility] Info Instructions
== END 2024-08-22 18:16 | disposition home or self-care (01) ==
LOC: ED 17:54
PROVIDERS: Emergency Provider Emergency Medicine; PCP Family Medicine
DX: R33.9 Retention of urine, unspecified (principal)
CPT/HCPCS: 51702; 81001; 87086; 99283; 99284

== ENCOUNTER 2024-08-25 08:28 | Outpatient (CLI) | payer MEDICARE, BC, SELFPAY | END 2024-08-25 08:29 | disposition home or self-care (01) | LOC: NFLDREF 09-01 00:56 | PROVIDERS: PCP Family Medicine; Referring Provider Family Medicine; Visit Provider Family Medicine | DX: E11.42 Type 2 diabetes mellitus with diabetic polyneuropathy (principal); I10 Essential (primary) hypertension; E78.5 Hyperlipidemia, unspecified; C67.9 Malignant neoplasm of bladder, unspecified; Z12.5 Encounter for screening for malignant neoplasm of prostate | CPT/HCPCS: 80053; 80061; 82043; 82570; 83036; G0103 ==

== ENCOUNTER 2024-08-26 00:16 | Emergency (ER) | payer MEDICARE, BC, SELFPAY ==
--- OUTSIDE RECORDS SUMMARY | 2024-08-26 00:18 | XMS_ITS | Clinical Summary ---
Author Organization [place] Address [address] [facility] 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 Gender Identity Not on file Sexual Orientation Not on file Last Filed Vital Signs Vital Sign Reading Time Taken Comments Blood Pressure 122/78 09/10/2017 9:11 AM WOOD TANK BUILDER Pulse 70 09/10/2017 9:11 AM WOOD TANK BUILDER Temperature 36.7 C (98 F) 03/26/2013 9:28 AM CDT Respiratory Rate 18 03/26/2013 9:28 AM CDT Oxygen Saturation 98% 03/26/2013 9:28 AM CDT Inhaled Oxygen Concentration - - Weight 106.6 kg (235 lb) 09/10/2017 9:11 AM WOOD TANK BUILDER Height 188 cm (6' 2) 09/10/2017 9:11 AM WOOD TANK BUILDER Body Mass Index 30.17 09/10/2017 9:11 AM WOOD TANK BUILDER Plan of Treatment Not on file Insurance MEDICARE Care Teams Fleecer Relationship Specialty Start Date End Date Guero Hutchinson MD [address] [place] [address] [place] [address] PCP - General Urology 11/14/15
--- OUTSIDE RECORDS SUMMARY | 2024-08-26 00:18 | XMS_ITS | Clinical Summary ---
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 The endoscope PCF-H190L [id number] was passed through the anus andadvanced to [...] 9:22 AM Procedure Code(s): --- Professional --- 61952, Colonoscopy, flexible; with removalof tumor(s), polyp(s), or other lesion(s) bysnare technique Diagnosis Code(s): --- Professional --- Z86.010, Personal history of colonicpolyps D12.2, Benign neoplasm of ascending colon K57.30, Diverticulosis of large intestine without perforation or abscess withoutbleeding CPT copyright 2021 [employer]. All rights reserved. The codes documented in this report are preliminary and upon death surveys coder reviewmay be revised to meet current compliance requirements. Scope In: 10:44:45 AM Scope Withdrawal Time 0 hours 10 minutes 40 seconds Scope Out: 10:59:10 AM Moi Lui MD PROCEDURE ORD Final Res ult from Last 3 Months or Most Recently Relevant to Health Maintenance Insurance PREFERRED ONE [facility] MEDICARE PART B HB ONLY [facility] MEDICARE PB ONLY MEDICARE PART A HB ONLY Advance Directives * Full Code (Latest Code Status on File) Date Activated Date Inactivated Comments 01/03/2021 6:00 AM 01/04/2021 1:54 PM Question Answer Comments Code Status Discussion: Not Discussed Care Teams Web Offset Press Feeder Relationship Specialty Start Date End Date Santi Juarez MD [address] [place] [address] PCP - General Family Practice 12/07/20
--- OUTSIDE RECORDS SUMMARY | 2024-08-26 00:18 | XMS_ITS | Referral Summary ---
Author Organization [place] Address [address] [facility] 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 Gender Identity Not on file Sexual Orientation Not on file Last Filed Vital Signs Vital Sign Reading Time Taken Comments Blood Pressure 122/78 09/10/2017 9:11 AM STEEL POST INSTALLER Pulse 70 09/10/2017 9:11 AM STEEL POST INSTALLER Temperature 36.7 C (98 F) 03/26/2013 9:28 AM CDT Respiratory Rate 18 03/26/2013 9:28 AM CDT Oxygen Saturation 98% 03/26/2013 9:28 AM CDT Inhaled Oxygen Concentration - - Weight 106.6 kg (235 lb) 09/10/2017 9:11 AM STEEL POST INSTALLER Height 188 cm (6' 2) 09/10/2017 9:11 AM STEEL POST INSTALLER Body Mass Index 30.17 09/10/2017 9:11 AM STEEL POST INSTALLER Plan of Treatment Not on file Insurance MEDICARE RISK MANAGEMENT Care Teams Electrical Intern Relationship Specialty Start Date End Date Guero Hutchinson MD [address] [place] [address] PCP - General Urology 11/14/15
--- OUTSIDE RECORDS SUMMARY | 2024-08-26 00:18 | XMS_ITS | Continuity of Care Document ---
Author Name NwHIN [facility] Address Unknown Organization Unknown Address Unknown Procedures FILTER APPLIED:Only known Procedures with Onset Date within the last 5 years Procedure Date Procedure Provider Additiona l Information Status COMPREHEN METABOLIC PANEL (99089) Completed LIPID PANEL (22717) Comp leted ASSAY OF PSA TOTAL (77616) Completed ASSAY OF URINE CREATININE (39415) Completed UR ALBUMIN QUANTITATIVE (25058) Completed Encounters FILTER APPLIED:Only known Encounters with Admission Date within the last 5 years Encounter Location Admission Discharge Billing Code [facility] [place] [facility] Outpatient Santi Juarez
[2024-08-26 00:37] VITALS: BP 170/80; PULSE 89; RESP 18; TEMP 36.7; O2SAT 99; BMI 25.7
[2024-08-26 00:58] LABS: Appearance Urine Cloudy (Clear); Bilirubin Urine Negative (Negative); Blood Urine 3+ (Negative); Color Urine Yellow (Yellow); Glucose Urine Trace (Negative); Ketones Urine 1+ (Negative); Leukocyte Esterase Urine Trace (Negative); Nitrite Urine Negative (Negative); Protein Urine Trace (Negative); Specific Gravity Urine 1.015 (1.000-1.030); Urobilinogen Urine 0.2 (0.2-1.0); pH Urine 5.5 (5.0-8.5)
--- OUTSIDE RECORDS SUMMARY | 2024-08-26 01:05 | XMS_ITS | Clinical Summary ---
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 The endoscope PCF-H190L [id number] was passed through the anus andadvanced to [...] 9:22 AM Procedure Code(s): --- Professional --- 33742, Colonoscopy, flexible; with removalof tumor(s), polyp(s), or other lesion(s) bysnare technique Diagnosis Code(s): --- Professional --- Z86.010, Personal history of colonicpolyps D12.2, Benign neoplasm of ascending colon K57.30, Diverticulosis of large intestine without perforation or abscess withoutbleeding CPT copyright 2021 [employer]. All rights reserved. The codes documented in this report are preliminary and upon education director reviewmay be revised to meet current compliance requirements. Scope In: 10:44:45 AM Scope Withdrawal Time 0 hours 10 minutes 40 seconds Scope Out: 10:59:10 AM Moi Lui MD PROCEDURE ORD Final Res ult from Last 3 Months or Most Recently Relevant to Health Maintenance Insurance PREFERRED ONE [facility] MEDICARE PART B HB ONLY [facility] MEDICARE PB ONLY MEDICARE PART A HB ONLY Advance Directives * Full Code (Latest Code Status on File) Date Activated Date Inactivated Comments 01/03/2021 6:00 AM 01/04/2021 1:54 PM Question Answer Comments Code Status Discussion: Not Discussed Care Teams Database Security Expert Relationship Specialty Start Date End Date Santi Juarez MD [address] [place] [address] PCP - General Family Practice 12/07/20
--- OUTSIDE RECORDS SUMMARY | 2024-08-26 01:05 | XMS_ITS | Referral Summary ---
Author Organization [place] Address [address] [facility] 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 Gender Identity Not on file Sexual Orientation Not on file Last Filed Vital Signs Vital Sign Reading Time Taken Comments Blood Pressure 122/78 09/10/2017 9:11 AM FILAMENT COIL WINDER Pulse 70 09/10/2017 9:11 AM FILAMENT COIL WINDER Temperature 36.7 C (98 F) 03/26/2013 9:28 AM CDT Respiratory Rate 18 03/26/2013 9:28 AM CDT Oxygen Saturation 98% 03/26/2013 9:28 AM CDT Inhaled Oxygen Concentration - - Weight 106.6 kg (235 lb) 09/10/2017 9:11 AM FILAMENT COIL WINDER Height 188 cm (6' 2) 09/10/2017 9:11 AM FILAMENT COIL WINDER Body Mass Index 30.17 09/10/2017 9:11 AM FILAMENT COIL WINDER Plan of Treatment Not on file Insurance MEDICARE RISK MANAGEMENT Care Teams Founder Chairman And Chief Creative Officer Relationship Specialty Start Date End Date Guero Hutchinson MD [address] [place] [address] PCP - General Urology 11/14/15
--- OUTSIDE RECORDS SUMMARY | 2024-08-26 01:05 | XMS_ITS | Clinical Summary ---
Author Organization [place] Address [address] [facility] 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 Gender Identity Not on file Sexual Orientation Not on file Last Filed Vital Signs Vital Sign Reading Time Taken Comments Blood Pressure 122/78 09/10/2017 9:11 AM RACE AND SPORTS BOOK WRITER Pulse 70 09/10/2017 9:11 AM RACE AND SPORTS BOOK WRITER Temperature 36.7 C (98 F) 03/26/2013 9:28 AM CDT Respiratory Rate 18 03/26/2013 9:28 AM CDT Oxygen Saturation 98% 03/26/2013 9:28 AM CDT Inhaled Oxygen Concentration - - Weight 106.6 kg (235 lb) 09/10/2017 9:11 AM RACE AND SPORTS BOOK WRITER Height 188 cm (6' 2) 09/10/2017 9:11 AM RACE AND SPORTS BOOK WRITER Body Mass Index 30.17 09/10/2017 9:11 AM RACE AND SPORTS BOOK WRITER Plan of Treatment Not on file Insurance MEDICARE Care Teams Forensic Ballistics Expert Relationship Specialty Start Date End Date Guero Hutchinson MD [address] [place] [address] [place] [address] PCP - General Urology 11/14/15
--- OUTSIDE RECORDS SUMMARY | 2024-08-26 01:06 | XMS_ITS | Continuity of Care Document ---
Author Name NwHIN User [facility] Address Unknown Organization Unknown Address Unknown Procedures FILTER APPLIED:Only known Procedures with Onset Date within the last 5 years Procedure Date Procedure Provider Additiona l Information Status COMPREHEN METABOLIC PANEL (18341) Completed LIPID PANEL (00902) Comp leted ASSAY OF PSA TOTAL (16971) Completed ASSAY OF URINE CREATININE (99395) Completed UR ALBUMIN QUANTITATIVE (47696) Completed Encounters FILTER APPLIED:Only known Encounters with Admission Date within the last 5 years Encounter Location Admission Discharge Billing Code Tool Hardener [facility]en [facility] Outpatient Snati Juarez
[2024-08-26 01:07] LABS: Bacteria Urine Few; Mucus Urine Few; Squamous Epithelial Cell Urine Few (None-Few); WBC Urine 0-2 (0-5)
[2024-08-26 01:10] VITALS: BP 155/70; PULSE 85; RESP 18; TEMP 36.7; O2SAT 99
--- NOTE | 2024-08-26 01:29 | ED_ITS ---
HPI - General Adult General Chief complaint: Urogenital Problems, Male Stated complaint: Was in Saturday, can't pee, blood in shorts Time Seen by Provider: 08/26/24 00:19 Source: patient Mode of arrival: ambulatory History of Present Illness HPI narrative: 74-year-old male presents the emergency department with acute urinary retention. He was initially evaluated 3 days ago. Catheter was placed for acute urinary retention. No previous problems with this, not on Flomax or other similar medications. Patient had immediate relief of symptoms and was discharged home with Fragoso in place. He followed up with his primary care provider 2 days later and the catheter was removed. He was not started on any new medications. There are no signs of complication. Unfortunately, he has been unable to void since. He tried calling the urologist but was unable to secure an appointment, it sounds as though he was not quite clear in telling them what to say. I cannot tell if a referral was placed by his primary care team. Patient states that he has had increasing feeling of lower abdominal pain, especially over the last few hours. Has not tried any other interventions to help with pain. Spot of blood noted on his underwear. No fever. No vomiting. No prior history of urological surgeries. Past medical history is notable for diabetes, hypertension. No recent changes in his medications. Did not start taking allergy medication, other medicines that are likely to cause retention. Nonsmoker. ROS is notable for the urinary symptoms only, otherwise denies times 12 systems. Related Data Home Medications ?Medication ?Instructions ?Recorded ?Confirmed aspirin 81 mg chewable tablet 81 mg PO DAILY 06/06/22 08/22/24 Previous Rx's ?Medication ?Instructions ?Recorded epinephrine 0.3 mg/0.3 mL 0.3 ml IM .As Needed as needed PRN 07/03/23 injection, auto-injector anaphylaxis #2 ea Blood Glucose Meter #1 ea 01/01/24 Diabetic Test Strips #100 ea 01/01/24 lancets 28 gauge (Acti-Ofrest #100 ea 01/01/24 Lancets) metformin 1,000 mg tablet,extended 1,000 mg PO QDAY #180 tabs 01/01/24 release 24hr (osmotic) chlorthalidone 25 mg tablet 12.5 mg (1/2 x 25 mg) PO QDAY #45 07/15/24 tabs amlodipine 10 mg tablet 10 mg PO QDAY #90 tabs 07/30/24 atorvastatin 40 mg tablet 40 mg PO QHS #90 tabs 07/30/24 glipizide 10 mg tablet, extended 10 mg PO QDAY #90 tabs 07/30/24 release 24 hr lisinopril 10 mg tablet 10 mg PO QDAY #90 tabs 07/30/24 cyclobenzaprine 10 mg tablet 10 mg PO TID #20 tabs 08/13/24 gabapentin 100 mg capsule 100 mg PO TID #30 caps 08/13/24 ketorolac 10 mg tablet 10 mg PO Q8H 5 days #15 tabs 08/13/24 methylprednisolone 4 mg tablets in See Rx Instructions PO .COMPLEX 08/13/24 a dose pack (Medrol (Tae)) #21 ea oxycodone 5 mg tablet 5 mg PO Q6H PRN pain #8 tabs 08/20/24 ciprofloxacin HCl 250 mg tablet 250 mg PO BID #10 tabs 08/26/24 tamsulosin 0.4 mg capsule (Flomax) 0.4 mg PO DAILY #90 caps 08/26/24 Allergies Allergy/AdvReac Type Severity Reaction Status Date / Time Bee venom Allergy Severe Difficulty Uncoded 03/10/24 10:03 Swallowing Penicillin Allergy Unknown Uncoded 03/10/24 10:03 [facility] Medical History Foot pain ?M79.673 - Pain in unspecified foot (ICD-10) Abnormal gait ?R26.9 - Unspecified abnormalities of gait and mobility (ICD-10) Surgical History History of tonsillectomy (1969) ?Z90.89 - Acquired absence of other organs (ICD-10) History of right-sided carotid endarterectomy ?Z98.890 - Other specified postprocedural states (ICD-10) Social History Narrative: SOCIAL HISTORY: He is single. Retired. One daughter living in [facility] that he does not see much. No longer working at [employer] No longer working for the [employer]. 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 HABITS: Sporadic walking for exercise. Sporadic smoking in the past. He denies smoking at this point. No alcohol or recreational drug use. FAMILY HISTORY: No changes. Parents both . He did not know them well. Father around 80 of unknown cause. Mother around 70 of unknown cancer. Three sisters all living with borderline diabetes otherwise healthy. What is your current living situation?: I presently have a place to live Problems where you live: declined to answer In the past 12 months, utilities in danger of being shut off: no In past 12 months, lack of transportation kept you from medical appts, meetings, work, or getting things needed for daily living: no In the past 12 mos, have been you worried that your food would run out before you had money to buy more?: never true In the past 12 mos, the food you bought just didn't last and you didn't have money to buy more?: never true Smoking Status: Former smoker Do you use any of these nicotine containing products: None Second hand tobacco smoke exposure: No How often do you have a drink containing alcohol: never AUDIT-C Alcohol total score: 0 Non-prescribed substance use: denies use How often does anyone, including family, friends and others, physically hurt you : never How often does anyone, including family, friends and others, insult or talk down to you: never How often does anyone, including family, friends and others, threaten you with harm: never How often does anyone, including family, friends and others, scream or curse at you: never Exam Const: Vital Signs, click to edit/add: Vital Signs - 24 hr 08/26/24 00:37 08/26/24 01:10 Temperature 98.0 F 98.0 F Pulse Rate [Right Pulse Oximeter] 89 85 Respiratory Rate 18 18 Blood Pressure [Ri ght Upper Arm] 170/80 H 155/70 H Pulse Oximetry 99 99 Oxygen Delivery Me thod Room Air Room Air Documenting provider has reviewed patient's vital signs: yes Common normals: no apparent distress General appearance: cooperative Other: Initially uncomfortable, doing much better after drainage of 1200 mL of yellow but mainly clear urine. Good historian. HENMT: Common normals: moist oral mucous membranes and oropharynx normal Eye: Common normals: conjunctivae normal General eye: normal appearance of both eyes Conjunctiva: conjunctiva(e) normal Neck & C-Spine: General: normal visual inspection Resp: Common normals: normal respiratory effort and clear to auscultation bilaterally Effort & inspection: able to speak in complete sentences Auscultation: clear to auscultation bilaterally Cardio: Common normals: regular rate, regular rhythm, S1 normal heart sound, S2 normal heart sound and no murmurs Rate: regular rate Rhythm: regular rhythm Heart sounds: S1 normal and S2 normal GI: Other: Abdomen soft and nontender with no obvious mass after drainage of bladder. Psych: Activity/motor behavior: appropriate eye contact Mood and affect: euthymic mood Skin: Common normals: no rashes or lesions noted General skin exam: no rashes or lesions noted Course Course ED Course: Patient feeling much better after drainage of urine. 1200 mL expressed. Fragoso catheter placed, transitioned onto leg bag. UA is mildly suspicious for infection. Will start Cipro, additional supplies sent pharmacy. Extensively counseled patient that he needs to follow up with Urology. Numbers provided. Exact script that he will need to follow given to call in secur appointment. There is no ability for me to make this appointment for him overnight. He verbalizes understanding and agreement of plan. Alarm symptoms reviewed that would warrant 80 presentation. Vital Signs Vital signs: Initial Vital Signs Temperature 98.0 F 08/26/24 00:37 Temperature Source Temporal Artery Scan 08/26/24 00:37 Pulse Rate 89 08/26/24 00:37 Respiratory Rate 18 08/26/24 00:37 Blood Pressure 170/80 H 08/26/24 00:37 Blood Pressure Mean 110 H 08/26/24 00:37 Blood Pressure Position Sitting 08/26/24 00:37 Pulse Oximetry 99 08/26/24 00:37 Oxygen Delivery Method Room Air 08/26/24 00:37 Vital Signs Temperature 98.0 F 08/26/24 00:37 Pulse Rate 89 08/26/24 00:37 Respiratory Rate 18 08/26/24 00:37 Blood Pressure 170/80 H 08/26/24 00:37 Pulse Oximetry 99 08/26/24 00:37 Oxygen Delivery Method Room Air 08/26/24 00:37 Temperature 98.0 F 08/26/24 01:10 Pulse Rate 85 08/26/24 01:10 Respiratory Rate 18 08/26/24 01:10 Blood Pressure 155/70 H 08/26/24 01:10 Pulse Oximetry 99 08/26/24 01:10 Oxygen Delivery Method Room Air 08/26/24 01:10 Medical Decision Making Lab Data Lab results reviewed: Yes I reviewed the patient's lab results Lab results narrative: Mildly suspicious for infection. Culture is pending. Labs: Lab Results 08/26/24 Range/Units 00:30 Urine Color Yellow (Yellow) Urine Appearance Cloudy A (Clear) Urine pH 5.5 (5.0-8.5) Ur Specific [place] 1.015 (1.000-1.030) Urine Protein Trace A (Negative) Urine Glucose (UA) Trace A (Negative) Urine Ketones 1+ A (Negative) Urine Blood 3+ A (Negative) Urine Nitrite Negative (Negative) Urine Bilirubin Negative (Negative) Urine Urobilinogen 0.2 (0.2-1.0) Ur Leukocyte Esterase Trace A (Negative) Urine RBC 5-10 A (0-2) Urine WBC 0-2 (0-5) Ur Squamous Epith Cells Few (None-Few) Urine Bacteria Few A (None) Urine Mucus Few A (None) Discharge Plan Discharge Clinical Impression: Acute urinary retention, Urinary tract infection Patient Disposition: Home, Self-Care Instructions: Urinary Retention in Men (ED), Fragoso Catheter Placement and Care (ED) Additional Instructions: As we discussed, the problem with your bladder is a very common one. Unfortunately, if we remove this catheter, the chances of you not being able to pee properly again is high. Because of this, we will plan to leave the catheter in place and have you follow-up with a urologist. Urologist is a specialist in the urinary system. Your urine test is suspicious for an early infection. To air on the side of caution, I will start you on an antibiotic. You received your 1st dose here in the emergency department this morning. This will count as your Saturday morning dose. You will need to pickle maker the rest of the medicat ion at the pharmacy and continue taking 1 tablet 2 times daily for 5 days. I have also charge on a medicine called Flomax. This is a medication that helps dilate open the urinary system slightly and may help reduce spasm associated with the catheter. Unfortunately, spasms can be a bit common. It is okay to use Tylenol 1000 mg 3 times daily and or ibuprofen 600 mg every 6 hours as needed. As we discussed, washing around the head of the penis where the catheter inserts at least once daily is important and I do recommend applying a barrier ointment like Vaseline to help soothe the skin around the head of the penis after you wash. As discussed, this is not definitive care and there were will still need to be additional things done to help manage your urinary retention. It is your responsibility to call to secure urology appointment. Please call right away in the morning. They have 2 separate numbers. Please try both to secure an appointment as soon as possible. It may take a few weeks to get. Call: [phone] and/or Call: [phone] Please tell them exactly at the following: You were seen in the emergency department on Saturday for acute urinary retention and a catheter was placed. You followed up with your primary care doctor a couple of days later and the catheter was removed. Unfortunately, you were unable to urinate since that time and came to the emergency department again. Bladder scan showed significant urinary retention and a new Fragoso catheter was placed and drained 1200 mL of urine. The catheter is left in place and you need a urology appointment. You were started on Flomax at the 2nd emergency department visit. There is also some mild suspicion for urinary infection and your started on ciprofloxacin. A urine culture is pending. In the meantime, please come back to the emergency department if the catheter is not draining, you have high fever, significant pain or other signs of complication. Please follow the enclosed care instructions on emptying the catheter and care. Activity Level: No Restrictions Discharge Diet: Regular Prescriptions: New tamsulosin [Flomax] 0.4 mg capsule 0.4 mg PO DAILY Qty: 90 4RF ciprofloxacin HCl 250 mg tablet 250 mg PO BID Qty: 10 0RF No Action aspirin 81 mg tablet,chewable 81 mg PO DAILY epinephrine 0.3 mg/0.3 mL auto-injector 0.3 ml IM .As Needed as needed PRN (Reason: anaphylaxis) Qty: 2 0RF metformin 1,000 mg tablet extended release 24 hr 1,000 mg PO QDAY Qty: 180 1RF (DME) Blood Glucose Meter Misc See Rx Instructions .ROUTE .MEDSUPPLY Qty: 1 0RF Rx Instructions: As directed (DME) Diabetic Test Strips Mis See Rx Instructions .ROUTE .MEDSUPPLY Qty: 100 3RF Rx Instructions: As directed (DME) lancets [Acti-Forest Lancets] 28 gauge misc See Rx Instructions .Route Qty: 100 3RF Rx Instructions: As directed cyclobenzaprine 10 mg tablet 10 mg PO TID Qty: 20 0RF ketorolac 10 mg tablet 10 mg PO Q8H 5 Days Qty: 15 0RF gabapentin 100 mg capsule 100 mg PO TID Qty: 30 2RF methylprednisolone [Medrol (Tae)] 4 mg tablets,dose pack See Rx Instructions .ROUTE .COMPLEX Qty: 21 0RF Rx Instructions: orally per package directions oxycodone 5 mg tablet 5 mg PO Q6H PRN (Reason: pain) Qty: 8 0RF chlorthalidone 25 mg tablet 12.5 mg PO QDAY Qty: 45 0RF Rx Instructions: Needs 6 mo supply for international travel. amlodipine 10 mg tablet 10 mg PO QDAY Qty: 90 0RF atorvastatin 40 mg tablet 40 mg PO QHS Qty: 90 0RF glipizide 10 mg tablet extended release 24hr 10 mg PO QDAY Qty: 90 0RF lisinopril 10 mg tablet 10 mg PO QDAY Qty: 90 0RF Follow Up/Referrals: Santi Juarez MD [Primary Care Provider] - Stand Alone Forms: MyHealth Info Instructions
[2024-08-26] MEDS: CIPROFLOXACIN 500 MG TABLET PO (01:33)
[2024-08-26 01:45] VITALS: BP 155/70; PULSE 85; RESP 18; TEMP 36.7
== END 2024-08-26 01:46 | disposition home or self-care (01) ==
PROVIDERS: Emergency Provider Family Medicine; PCP Family Medicine
DX: N39.0 Urinary tract infection, site not specified (principal)
CPT/HCPCS: 51702; 81001; 87086; 99283; A9270

== ENCOUNTER 2024-08-27 02:48 | Emergency (ER) | payer MEDICARE, BC, SELFPAY ==
--- OUTSIDE RECORDS SUMMARY | 2024-08-27 02:50 | XMS_ITS | Clinical Summary ---
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 Gender Identity Not on file Sexual Orientation [...] 18-79 01/11/1970 Lipids for age 45-75 01/11/1997 Pneumococcal series for age 50+ (1 of 1 - PCV) 01/11/2002 Zoster (shingles) series for age 50+ (1 of 2) 01/11/2002 Tetanus booster 11/17/2014 11/17/2004 Medicare Wellness for age 65+ 01/11/2017 BMI (ht and wt on same [...] Completed 11/17/2004 Medical Devices Implanted Type Area Personnel Training Officer Device Identifier Shelf Expiration Date Model / Serial / Lot Tissue Pericardium 0.8x8cm Xenosure - [id number] Implanted:Qty: 1 on 01/03/2021 by Cesar Jacobs MD at [facility] Right: Carotid Artery [employer] 08/08/2026 0.8P8 / / [id number] Procedures Procedure Name Priority Date/Time Associated Diagnosis [...] candidate for conscious sedation. The endoscope [id number] was passed through the anus andadvanced to [...] 9:22 AM Procedure Code(s): --- Professional --- 06434, Colonoscopy, flexible; with removalof tumor(s), polyp(s), or other lesion(s) bysnare technique Diagnosis Code(s): --- Professional --- Z86.010, Personal history of colonicpolyps D12.2, Benign neoplasm of ascending colon K57.30, Diverticulosis of large intestine without perforation or abscess withoutbleeding CPT copyright 2021 [employer]. All rights reserved. The codes documented in this report are preliminary and upon boat hoist operator reviewmay be revised to meet current compliance requirements. Scope In: 10:44:45 AM Scope Withdrawal Time 0 hours 10 minutes 40 seconds Scope Out: 10:59:10 AM Moi Lui MD PROCEDURE ORD Final Res ult from Last 3 Months or Most Recently Relevant to Health Maintenance Insurance PREFERRED [facility] MEDICARE PART B HB ONLY [facility] MED[facility] PB ONLY MEDICARE PART A HB ONLY Advance Directives * Full Code (Latest Code Status on File) Date Activated Date Inactivated Comments 01/03/2021 6:00 AM 01/04/2021 1:54 PM Question Answer Comments Code Status Discussion: Not Discussed Care Teams Snack Bar Attendant Relationship Specialty Start Date End Date Santi Juarez MD [address] [place] [id number] PCP - General Family Practice 12/07/20
--- OUTSIDE RECORDS SUMMARY | 2024-08-27 02:50 | XMS_ITS | Clinical Summary ---
Author Organization [place] Address [address] 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 Gender Identity Not on file Sexual Orientation Not on file Last Filed Vital Signs Vital Sign Reading Time Taken Comments Blood Pressure 122/78 09/10/2017 9:11 AM FINISHING INSPECTOR Pulse 70 09/10/2017 9:11 AM FINISHING INSPECTOR Temperature 36.7 C (98 F) 03/26/2013 9:28 AM CDT Respiratory Rate 18 03/26/2013 9:28 AM CDT Oxygen Saturation 98% 03/26/2013 9:28 AM CDT Inhaled Oxygen Concentration - - Weight 106.6 kg (235 lb) 09/10/2017 9:11 AM FINISHING INSPECTOR Height 188 cm (6' 2) 09/10/2017 9:11 AM FINISHING INSPECTOR Body Mass Index 30.17 09/10/2017 9:11 AM FINISHING INSPECTOR Plan of Treatment Not on file Insurance [id number], [place] MEDICARE Care Teams Cook Enchilada Relationship Specialty Start Date End Date Guero Hutchinson MD [address] [place] [address] [place] [id number] PCP - General Urology 11/14/15
--- OUTSIDE RECORDS SUMMARY | 2024-08-27 02:51 | XMS_ITS | Continuity of Care Document ---
Author Name NwHIN User [facility] Address Unknown Organization Unknown Address Unknown Procedures FILTER APPLIED:Only known Procedures with Onset Date within the last 5 years Procedure Date Procedure Provider Additiona l Information Status COMPREHEN METABOLIC PANEL (30829) Completed LIPID PANEL (97462) Comp leted ASSAY OF PSA TOTAL (28284) Completed ASSAY OF URINE CREATININE (54799) Completed UR ALBUMIN QUANTITATIVE (32559) Completed Encounters FILTER APPLIED:Only known Encounters with Admission Date within the last 5 years Encounter Location Admission Discharge Billing Code Project Management Maureen [facility]ri Outpatient Santi Juarez
--- OUTSIDE RECORDS SUMMARY | 2024-08-27 02:51 | XMS_ITS | Referral Summary ---
Author Organization [place] Address [address] [facility] 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 Gender Identity Not on file Sexual Orientation Not on file Last Filed Vital Signs Vital Sign Reading Time Taken Comments Blood Pressure 122/78 09/10/2017 9:11 AM CHURCH BUSINESS ADMINISTRATOR Pulse 70 09/10/2017 9:11 AM CHURCH BUSINESS ADMINISTRATOR Temperature 36.7 C (98 F) 03/26/2013 9:28 AM CDT Respiratory Rate 18 03/26/2013 9:28 AM CDT Oxygen Saturation 98% 03/26/2013 9:28 AM CDT Inhaled Oxygen Concentration - - Weight 106.6 kg (235 lb) 09/10/2017 9:11 AM CHURCH BUSINESS ADMINISTRATOR Height 188 cm (6' 2) 09/10/2017 9:11 AM CHURCH BUSINESS ADMINISTRATOR Body Mass Index 30.17 09/10/2017 9:11 AM CHURCH BUSINESS 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
[2024-08-27 02:53] VITALS: BP 141/72; PULSE 89; RESP 18; TEMP 36.7; O2SAT 99; BMI 25.7
--- NOTE | 2024-08-27 03:11 | CRLHL7_ITS ---
For Patients: As a result of the Century Cures Act, medical imaging exams and procedure reports are released immediately into your electronic medical record. You may view this report before your referring provider. If you have questions, please contact your health care provider. INDICATION: Right L4/L5 radiculopathy. TECHNIQUE: Lumbar spine 3 views. COMPARISON: None. FINDINGS: Bones: Straightening of the lumbar lordosis. Vertebral body heights are maintained. No acute displaced fracture. Joints: Mild multilevel disc space narrowing. Mild lower lumbar facet arthropathy. Mild bony foraminal narrowing at L5-S1. Soft tissues: Aortic atherosclerotic calcifications. Dictated by Cesar Davis MD @ 08/27/2024 4:00:30 AM (Electronically Signed)
[2024-08-27 03:15] VITALS: O2SAT 97
--- NOTE | 2024-08-27 03:15 | ED_ITS ---
HPI - General Adult General Chief complaint: Extremity Pain/Injury, Lower Stated complaint: dizzy/leg gave out tonight Time Seen by Provider: 08/27/24 03:00 Source: patient Mode of arrival: ambulatory Limitations: no limitations History of Present Illness HPI narrative: 74-year-old male presents the emergency department with dizziness after taking his 1st dose of Flomax. Patient has had 2 episodes of urinary retention in the last week. He was evaluated in the emergency department last night PE areas him it was recommended that he start Flomax, rationale and typical side effects were discussed. Patient admits that the pharmacist also told him about the dizziness that is common with this medication. Patient reports that he awoke at 2:00 a.m. and thought he should get up to go empty his catheter bag no fear that it could overflow. When he did this, he felt lightheaded and thought he could pass out so he lowered himself to the ground. He said that he has chronic pain in his right leg, it has been going on for several months. I can see a prior known diagnosis of lumbar radiculopathy in his records. He also reports that he is prone to dizzy spells. I reviewed the chart and see that he has had 2 brain MRIs within the last 5 years, most recent being less than 2 years ago. Chronic basal ganglia infarcts noted. No chest pain, no shortness of breath. No new focal neurological changes. No saddle numbness, loss of bowel control. A he had diffuse pain in the vague lower leg area points to the general tibial area, not at the ankle joint, knee joint or other focal place. Denies any back pain. I do not see any recent lumbar spine imaging in his records. He has not tried taking any medications recently to help with the back pain. ED note from August 13 reviewed clearly describing the lumbar radiculopathy, treatments. He has also had prior outpatient visits detailing the lumbar radiculopathy as well. It is unclear if he followed up for a spine center referral as was recommended. No problems with the catheter. Has an appointment later today to see his primary care doctor. He comes to the emergency department due to the dizzy episode that lasted less than 2 minutes. No stroke-like symptoms. Denies hypoglycemia. Eating and drinking well. Past medical history notable for diabetes hypertension. He cannot list his medications. New prescription for Flomax noted. Allergies are to bee venom and penicillin. Extensive prior smoking history. ROS is notable for the dizziness and ongoing right leg issues as described above. Related Data Home Medications ?Medication ?Instructions ?Recorded ?Confirmed aspirin 81 mg chewable tablet 81 mg PO DAILY 06/06/22 08/27/24 Previous Rx's ?Medication ?Instructions ?Recorded epinephrine 0.3 mg/0.3 mL 0.3 ml IM .As Needed as needed PRN 07/03/23 injection, auto-injector anaphylaxis #2 ea Blood Glucose Meter #1 ea 01/01/24 Diabetic Test Strips #100 ea 01/01/24 lancets 28 gauge (Acti-Forest #100 ea 01/01/24 Lancets) metformin 1,000 mg tablet,extended 1,000 mg PO QDAY #180 tabs 01/01/24 release 24hr (osmotic) amlodipine 10 mg tablet 10 mg PO QDAY #90 tabs 07/30/24 atorvastatin 40 mg tablet 40 mg PO QHS #90 tabs 07/30/24 glipizide 10 mg tablet, extended 10 mg PO QDAY #90 tabs 07/30/24 release 24 hr lisinopril 10 mg tablet 10 mg PO QDAY #90 tabs 07/30/24 gabapentin 100 mg capsule 100 mg PO TID #30 caps 08/13/24 ciprofloxacin HCl 250 mg tablet 250 mg PO BID #10 tabs 08/26/24 Allergies Allergy/AdvReac Type Severity Reaction Status Date / Time Bee venom Allergy Severe Difficulty Uncoded 03/10/24 10:03 Swallowing Penicillin Allergy Unknown Uncoded 03/10/24 10:03 [facility] Medical History (Updated 08/27/24 @ 04:05 by Naila Huang MD) Gout ?M10.9 - Gout, unspecified (ICD-10) Hypertension ?I10 - Essential (primary) hypertension (ICD-10) Diabetes mellitus ?E11.9 - Type 2 diabetes mellitus without complications (ICD-10) Foot pain ?M79.673 - Pain in unspecified foot (ICD-10) Abnormal gait ?R26.9 - Unspecified abnormalities of gait and mobility (ICD-10) Surgical History (Updated 08/27/24 @ 03:35 by Hitesh Alexander RN) History of amputation of toe ?Z89.429 - Acquired absence of other toe(s), unspecified side (ICD-10) History of colonoscopy ?Z98.890 - Other specified postprocedural states (ICD-10) History of tonsillectomy (1969) ?Z90.89 - Acquired absence of other organs (ICD-10) History of right-sided carotid endarterectomy ?Z98.890 - Other specified postprocedural states (ICD-10) Social History Narrative: SOCIAL HISTORY: He is single. Retired. One daughter living in [facility] that he does not see much. No longer working at [employer]. No longer working for the [employer]. 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 HABITS: Sporadic walking for exercise. Sporadic smoking in the past. He denies smoking at this point. No alcohol or recreational drug use. FAMILY HISTORY: No changes. Parents both . He did not know them well. Father around 80 of unknown cause. Mother around 70 of unknown cancer. Three sisters all living with borderline diabetes otherwise healthy. What is your current living situation?: I presently have a place to live Problems where you live: declined to answer In the past 12 months, utilities in danger of being shut off: no In past 12 months, lack of transportation kept you from medical appts, meetings, work, or getting things needed for daily living: no In the past 12 mos, have been you worried that your food would run out before you had money to buy more?: never true In the past 12 mos, the food you bought just didn't last and you didn't have money to buy more?: never true Smoking Status: Former smoker Do you use any of these nicotine containing products: None Second hand tobacco smoke exposure: No How often do you have a drink containing alcohol: never AUDIT-C Alcohol total score: 0 Non-prescribed substance use: denies use How often does anyone, including family, friends and others, physically hurt you : never How often does anyone, including family, friends and others, insult or talk down to you: never How often does anyone, including family, friends and others, threaten you with harm: never How often does anyone, including family, friends and others, scream or curse at you: never Exam Const: Vital Signs, click to edit/add: Vital Signs - 24 hr 08/27/24 02:53 08/27/24 03:56 08/27/24 04:02 Temperature 98.0 F Pulse Rate 85 78 Pulse Rate [Right Pulse Oximeter] 89 Respiratory Rate 18 16 20 Blood Pressure 135/78 138/76 Blood Pressure [Le ft Upper Arm] 141/72 H Pulse Oximetry 99 96 97 Oxygen Delivery Me thod Room Air Documenting provider has reviewed patient's vital signs: yes Common normals: no apparent distress and alert General appearance: cooperative Other: Friendly. Moderate historian. HENMT: Common normals: normocephalic, moist oral mucous membranes and oropharynx normal Head and scalp: normocephalic Throat: posterior oropharynx normal Eye: Common normals: PERRL, EOMs intact bilaterally and conjunctivae normal General eye: normal appearance of both eyes Conjunctiva: conjunctiva(e) normal Pupil: PERRL Neck & C-Spine: Common normals: full ROM and no lymphadenopathy General: normal visual inspection Chest: Common normals: inspection of chest normal Resp: Common normals: normal respiratory effort, no use of accessory muscles and clear to auscultation bilaterally Effort & inspection: able to speak in complete sentences Auscultation: clear to auscultation bilaterally Cardio: Common normals: regular rate, regular rhythm, S1 normal heart sound, S2 normal heart sound and no murmurs Rate: regular rate Rhythm: regular rhythm Heart sounds: S1 normal and S2 normal GI: Common normals: Normal to inspection, nondistended, normoactive bowel sounds present, soft to palpation, non-tender, no hepatosplenomegaly and no masses Palpation: soft and no hepatosplenomegaly Back & Pelvis: Other: Slight curvature of the thoraco lumbar spine suspicious for some old scoliosis. No point bony tenderness, bruising or other deformities. No tenderness over the SI joints. Straight leg lift positive on the right. Extremity: Common normals: normal capillary refill Other: Legs appear symmetric. No unusual swelling. No effusions in the ankles or knees. He has normal range of motion, no focal weakness. Normal sensation. Neuro: Common normals: CN's II-XII intact bilaterally, moves all extremities and no focal motor deficits Sensorium/orientation: alert Speech: speech normal Other: Nursing team reports that he can not pivot transfer and bear weight with no perceived difficulty. Psych: Common normals: cooperative Insight: fair Judgement: fair Skin: Common normals: no rashes or lesions noted General skin exam: no rashes or lesions noted Course Course ED Course: 74-year-old male with episode of dizziness highly likely related to starting Flomax. He was warned by this physician and also the pharmacist that this could occur. Patient is hesitant to continue the medication with this discussion but I did let him know the for most people the side effects to improve over couple of weeks and remember that this is a medication that gives him a good chance of being able to wean off of the catheter. He has is appointment coming up on the with the urologist. There are certainly other conditions that could have caused an episode of dizziness including acute stroke, exacerbation of chronic stroke issues, electrolyte abnormality, dehydration, infection, acute coronary syndrome, arrhythmia. At this time patient appears to be in sinus rhythm, will obtain EKG. Basic labs to ensure that there is no [place] at abnormality, severe anemia, signs of sepsis with his recent catheter placement. Will allow oral rehydration. I suspect that the leg is of course part of the ongoing issue that is well documented in his records. Will obtain lumbar spine x-ray as it does not look like this has been done. Anticipate the patient will be advised to follow-up with his primary care provider regarding plan for spine center and additional outpatient workup. Reevaluation(s) Time of Reevaluation #1: 04:13 Reevaluation #1: Counseled patient on findings. There are few things of note. The x-ray shows some arthritis which is exactly as expected. I did further reviewing of the chart and the patient has had high emergency room visits in the last 2 weeks. Two of which were specifically for the right leg. He actually does have an appointment pending tomorrow with Ortho to discuss the right leg. I reminded him of this and he does remember he just seems like he is struggling to know what to do in the short term. We discussed that he has some mild hyponatremia. This is similar to 2 weeks ago. I do suspect that this is chronic and I suspect that aging and also his chlorthalidone are contributing. I have asked him to stop his chlorthalidone and make a follow-up appointment with his primary care doctor to repeat the sodium level in 2 weeks time. But is down from 138 1 year and a half ago. Most likely the dizziness is related to his ongoing dizziness +use of lisinopril but exacerbated by the fact that he started Flomax. I do think that he is struggling to manage at home. We did discuss this briefly. He does not think that he needs to consider assisted living but he is considering moving into a single level, more aging friendly environment and I do think this is best for him at this time. He reports that he does not need assistance with arranging this. He will stop the Flomax for now. I have asked him not to discarded as his blood pressure may rise by going off the chlorthalidone and his urologist may find that the benefit outweighs the risk of that medication. He will finish his antibiotic for his urinary infection that was diagnosed yesterday. I do think this explains the mild leukocytosis. I am curious if his cognition in insight improve a little bit with stopping the chlorthalidone but to prior MRIs in the last 5 years do confirm that he has some cerebral microvascular disease. I do think he is safe to live independently and continue medical decision making at this time. He has demonstrated good ability to use the catheter. I am not seeing any signs of acute cord syndrome contributing to his urinary retention. All of this was extensively discussed with him. He does interrupt very frequently with slightly tangetal additions to the conversation which do make me question if he is fully understanding the conversation. Keep his follow-up appointments as planned. Alarm symptoms reviewed with him that would warrant ED presentation. It is okay to use Tylenol and/or ibuprofen as needed for the leg symptoms. I do not want to route restart around of steroids before his upcoming appointment tomorrow. Vital Signs Vital signs: Initial Vital Signs Temperature 98.0 F 08/27/24 02:53 Temperature Source Temporal Artery Scan 08/27/24 02:53 Pulse Rate 89 08/27/24 02:53 Respiratory Rate 18 08/27/24 02:53 Blood Pressure 141/72 H 08/27/24 02:53 Blood Pressure Mean 95 08/27/24 02:53 Blood Pressure Position Sitting 08/27/24 02:53 Pulse Oximetry 99 08/27/24 02:53 Oxygen Delivery Method Room Air 08/27/24 02:53 Vital Signs Temperature 98.0 F 08/27/24 02:53 Pulse Rate 89 08/27/24 02:53 Respiratory Rate 18 08/27/24 02:53 Blood Pressure 141/72 H 08/27/24 02:53 Pulse Oximetry 99 08/27/24 02:53 Oxygen Delivery Method Room Air 08/27/24 02:53 Temperature 98.0 F 08/27/24 02:53 Pulse Rate 78 08/27/24 04:02 Respiratory Rate 20 08/27/24 04:02 Blood Pressure 138/76 08/27/24 04:02 Pulse Oximetry 97 08/27/24 04:02 Oxygen Delivery Method Room Air 08/27/24 02:53 Medical Decision Making Lab Data Lab results reviewed: Yes I reviewed the patient's lab results Lab results narrative: There is some mild leukocytosis with left shift. Was diagnosed with the urinary tract infection yesterday. Lactate is okay, CRP is only mildly elevated, no other signs of sepsis. Sodium is a little low but it is similar to a couple of weeks ago. They suspect that this is chronic and could be related to his chlorthalidone and aging. I would like from to stop his chlorthalidone and have this recheck by his primary care team. Labs: Lab Results 08/27/24 Range/Units 03:24 WBC 14.76 H (4.50-11.00) K/uL RBC 4.63 (4.30-5.90) m/uL Hgb 13.8 (13.5-17.5) gm/dL Hct 38.4 (37.0-53.0) % MCV 83 (80-100) fL MCH 30 (26-34) pg MCHC 36 (32-36) gm/dL RDW Coeff of Rodriguez 11.5 (11.5-15.5) % Plt Count 267 (140-440) K/uL Neut % (Auto) 75.0 H (42.0-72.0) % Lymph % (Auto) 13.6 L (20-44) % [place] % (Auto) 9.8 (0.0-11.0) % Eos % (Auto) 1.4 (0.0-7.0) % Baso % (Auto) 0.1 (0.0-3.0) % Neut # (Auto) 11.10 H (1.7-7.0) K/uL Lymph # (Auto) 2.00 (0.90-2.90) K/uL [place] # (Auto) 1.40 H (0.00-0.90) K/UL Eos # (Auto) 0.20 (0.00-0.50) K/uL Baso # (Auto) 0.00 (0.00-0.30) K/uL Abs Immat Gran (auto) 0.00 (0.00-0.30) K/uL Imm/Tot Granulo (auto) 0.1 % Sodium 128 L (135-149) mmol/L Potassium 3.5 L (3.6-5.1) mmol/L Chloride 93 L (96-114) mmol/L Carbon Dioxide 23 (20-32) mmol/L Anion Gap 12 (7-15) mEq/L BUN 25 (7-30) mg/dL Creatinine 1.2 (0.5-1.5) mg/dL Estimated Creat Clear 64.69 Estimated GFR 64 ml/min Glucose 134 H (60-115) mg/dL Lactate 1.2 (0.5-1.9) mmol/L Calcium 9.0 (8.4-10.6) mg/dL C-Reactive Protein 2.1 H (0.5-1.0) mg/dL POC Troponin I 0.00 L (0.01-0.04) ng/ml Imaging Data Lumbar spine x-ray: Attestation: I have reviewed the pertinent imaging results. My impression: Mild osteoarthritic changes. Lots of vascular calcifications Radiologist's impression: FINDINGS: Bones: Straightening of the lumbar lordosis. Vertebral body heights are maintained. No acute displaced fracture. Joints: Mild multilevel disc space narrowing. Mild lower lumbar facet arthropathy. Mild bony foraminal narrowing at L5-S1. Soft tissues: Aortic atherosclerotic calcifications. Dictated by Cesar Davis MD @ 08/27/2024 4:00:30 AM ECG Data Attestation: I personally reviewed and interpreted this ECG as follows: Prior ECG tracings: available for review Interpretation: Sinus rhythm with a rate of 74. For some reason the 2 did not scrap picker well but the other leads are unchanged from 10/23/2022. Normal intervals and axis. No significant ST or T-wave abnormalities. Normal EKG Discharge Plan Discharge Clinical Impression: Medication side effects, Chronic hyponatremia, Chronic lumbar radiculopathy Patient Disposition: Home, Self-Care Condition: Stable Additional Instructions: As we discussed, I think the episode of dizziness was related to starting the Flomax. The Flomax can be very helpful medication in getting your bladder to start working again, but not all people tolerate it. As we discussed, the side effects often will get better after a couple of weeks. For now, discontinue the medication but hang onto it. Your urologist may decide to restart it at your appointment that is coming up in less than 2 weeks. You also take lisinopril which is notorious for causing lightheadedness with getting out of bed. Unfortunately, the combination of medications may not be something that your body will tolerate. The urologist can discuss other options besides the Flomax that may work for you or he may recommend that you give it another try. Keep taking your antibiotic as prescribed yesterday. You have been seen several times in the past couple of months for this right leg pain and I agree with the assessment from the other providers that this is related to pressing on the nerve in your lower back from arthritis. You have an appointment tomorrow with Orthopedics to have a 2nd opinion. Please keep this appointment. They will discuss the other advanced options for treatment of the condition. I have notice that over the past year, your sodium levels have begun to drop somewhat. This is common in people age when you take chlorthalidone. I would like for you to stop taking chlorthalidone and make a follow-up appointment with your primary care provider to have your sodium levels rechecked in 2 weeks. Activity Level: Activity as Tolerated Discharge Diet: Regular Prescriptions: Discontinued tamsulosin [Flomax] 0.4 mg capsule 0.4 mg PO DAILY Qty: 90 4RF chlorthalidone 25 mg tablet 12.5 mg PO QDAY Qty: 45 0RF Rx Instructions: Needs 6 mo supply for international travel. No Action aspirin 81 mg tablet,chewable 81 mg PO DAILY epinephrine 0.3 mg/0.3 mL auto-injector 0.3 ml IM .As Needed as needed PRN (Reason: anaphylaxis) Qty: 2 0RF metformin 1,000 mg tablet extended release 24 hr 1,000 mg PO QDAY Qty: 180 1RF (DME) Blood Glucose Meter Misc See Rx Instructions .ROUTE .MEDSUPPLY Qty: 1 0RF Rx Instructions: As directed (DME) Diabetic Test Strips Misc See Rx Instructions .ROUTE .MEDSUPPLY Qty: 100 3RF Rx Instructions: As directed (DME) lancets [Acti-Forest Lancets] 28 gauge misc See Rx Instructions .Route Qty: 100 3RF Rx Instructions: As directed gabapentin 100 mg capsule 100 mg PO TID Qty: 30 2RF ciprofloxacin HCl 250 mg tablet 250 mg PO BID Qty: 10 0RF amlodipine 10 mg tablet 10 mg PO QDAY Qty: 90 0RF atorvastatin 40 mg tablet 40 mg PO QHS Qty: 90 0RF glipizide 10 mg tablet extended release 24hr 10 mg PO QDAY Qty: 90 0RF lisinopril 10 mg tablet 10 mg PO QDAY Qty: 90 0RF Follow Up/Referrals: Santi Juarez MD [Primary Care Provider] - Stand Alone Forms: MyHealth Info Instructions
--- OUTSIDE RECORDS SUMMARY | 2024-08-27 03:20 | XMS_ITS | Continuity of Care Document ---
Author Name [email or web address] Address Unknown Organization Unknown Address Unknown Procedures FILTER APPLIED:Only known Procedures with Onset Date within the last 5 years Procedure Date Procedure Provider Additiona l Information Status COMPREHEN METABOLIC PANEL (49612) Completed LIPID PANEL (12654) Comp leted ASSAY OF PSA TOTAL (32122) Completed ASSAY OF URINE CREATININE (28999) Completed UR ALBUMIN QUANTITATIVE (62262) Completed Encounters FILTER APPLIED:Only known Encounters with Admission Date within the last 5 years Encounter Location Admission Discharge Billing Code Comb [facility] Santi Juarez
--- OUTSIDE RECORDS SUMMARY | 2024-08-27 03:20 | XMS_ITS | Clinical Summary ---
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 The endoscope [id number] was passed through the anus andadvanced to [...] 9:22 AM Procedure Code(s): --- Professional --- 43592, Colonoscopy, flexible; with removalof tumor(s), polyp(s), or other lesion(s) bysnare technique Diagnosis Code(s): --- Professional --- Z86.010, Personal history of colonicpolyps D12.2, Benign neoplasm of ascending colon K57.30, Diverticulosis of large intestine without perforation or abscess withoutbleeding CPT copyright 2021 [employer]. All rights reserved. The codes documented in this report are preliminary and upon allergist reviewmay be revised to meet current compliance requirements. Scope In: 10:44:45 AM Scope Withdrawal Time 0 hours 10 minutes 40 seconds Scope Out: 10:59:10 AM Moi Lui MD PROCEDURE ORD Final Res ult from Last 3 Months or Most Recently Relevant to Health Maintenance Insurance PREFERRED [facility] MEDICARE PART B HB ONLY [facility] MEDICARE [place] ONLY MEDICARE PART A HB ONLY Advance Directives * Full Code (Latest Code Status on File) Date Activated Date Inactivated Comments 01/03/2021 6:00 AM 01/04/2021 1:54 PM Question Answer Comments Code Status Discussion: Not Discussed Care Teams Paper Maker Relationship Specialty Start Date End Date Santi Juarez MD [address] [place] [id number] PCP - General Family Practice 12/07/20
[2024-08-27 03:27] LABS: Lactate* 1.2 mmol/L (0.5-1.9)
[2024-08-27 03:29] LABS: Basophils Percent Auto 0.1 % (0.0-3.0); Eosinophils Percent Auto 1.4 % (0.0-7.0); Hematocrit 38.4 % (37.0-53.0); Hemoglobin* 13.8 gm/dL (13.5-17.5); Immature Granulocytes Pct Auto 0.1 %; Lymphocytes Percent Auto 13.6 % (20-44); Mean Corpuscular HGB Conc 36 gm/dL (32-36); Mean Corpuscular Hemoglobin 30 pg (26-34); Mean Corpuscular Volume 83 fL (80-100); Monocytes Percent Auto 9.8 % (0.0-11.0); Platelet Count* 267 K/uL (140-440); RDW Coefficient of Variation % 11.5 % (11.5-15.5); Red Blood Count 4.63 m/uL (4.30-5.90); White Blood Count* 14.76 K/uL (4.50-11.00)
[2024-08-27 03:33] LABS: Slide Review Reflex No
[2024-08-27 03:42] LABS: Chloride* 93 mmol/L (96-114); Sodium* 128 mmol/L (135-149)
[2024-08-27 03:43] LABS: Potassium* 3.5 mmol/L (3.6-5.1)
[2024-08-27 03:45] LABS: Creatinine* 1.2 mg/dL (0.5-1.5); Est. Creatinine Clearance* 64.69; Estimated Glomerular Filt Rate 64 ml/min
[2024-08-27 03:46] LABS: Anion Gap 12 mEq/L (7-15); Blood Urea Nitrogen* 25 mg/dL (7-30); Carbon Dioxide* 23 mmol/L (20-32); Glucose* 134 mg/dL (60-115)
[2024-08-27 03:49] LABS: C Reactive Protein* 2.1 mg/dL (0.5-1.0)
[2024-08-27 03:56] VITALS: BP 135/78; PULSE 85; RESP 16; O2SAT 96
[2024-08-27 04:02] VITALS: BP 138/76; PULSE 78; RESP 20; O2SAT 97
[2024-08-27 04:45] VITALS: BP 132/74; PULSE 89; RESP 20; TEMP 36.7; O2SAT 97
[2024-08-27 04:46] VITALS: BP 132/74; PULSE 89; RESP 20; TEMP 36.7
== END 2024-08-27 04:47 | disposition home or self-care (01) ==
PROVIDERS: Emergency Provider Family Medicine; PCP Family Medicine
DX: R42 Dizziness and giddiness (principal); T44.6X5A Adverse effect of alpha-adrenoreceptor antagonists, initial encounter; E87.6 Hypokalemia; M54.16 Radiculopathy, lumbar region
CPT/HCPCS: 36415; 72100; 80048; 83605; 84484; 85025; 86140; 93005; 94761; 99284; 99285

== ENCOUNTER 2024-08-27 12:05 | Inpatient (IN) | payer MEDICARE, BC, SELFPAY ==
[2024-08-27] VITALS (34 sets, daily range): BP systolic 74–159; BP diastolic 48–106; PULSE 68–157; RESP 16–20; TEMP 36.2–36.6; O2SAT 88–99; BMI 25.7; BMI 22.8
--- NOTE | 2024-08-27 | CRLHL7_ITS ---
For Patients: As a result of the Century Cures Act, medical imaging exams and procedure reports are released immediately into your electronic medical record. You may view this report before your referring provider. If you have questions, please contact your health care provider. INDICATION: Dizziness. TECHNIQUE: CT head without contrast. COMPARISON: MRI brain 10/23/2022. FINDINGS: CSF spaces: Proportionate prominence of the ventricles and sulci, reflecting mild generalized cerebral volume loss. Brain parenchyma: Chronic lacunar infarct right basal ganglia, unchanged. The padgett-white differentiation is otherwise maintained. Patchy white matter low attenuation changes, nonspecific but likely reflecting chronic small vessel ischemic disease. No sign of mass, hemorrhage, or midline shift. Skull base and calvarium: The visualized paranasal sinuses and mastoid air cells demonstrate no acute or significant findings. Bilateral cataract extraction. No skull fractures. IMPRESSION: No acute intracranial abnormality. Please note that all CT scans at this facility use dose modulation, iterative reconstruction, and/or weight-based dosing when appropriate to reduce radiation dose to as low as reasonably achievable. Dictated by Cesar Davis MD @ 08/27/2024 9:13:43 PM (Electronically Signed)
[2024-08-27] MEDS: 0.9 % SODIUM CHLORIDE 1000 ml 1,000 ML IV (13:20)
[2024-08-27] MEDS: dilTIAZem 5 MG/ML inj 20 MG IVP (13:40)
[2024-08-27 13:45] LABS: Basophils Percent Auto 0.1 % (0.0-3.0); Eosinophils Percent Auto 0.5 % (0.0-7.0); Hematocrit 42.2 % (37.0-53.0); Immature Granulocytes Pct Auto 0.1 %; Lymphocytes Percent Auto 8.4 % (20-44); Mean Corpuscular HGB Conc 36 gm/dL (32-36); Mean Corpuscular Hemoglobin 30 pg (26-34); Mean Corpuscular Volume 83 fL (80-100); Monocytes Percent Auto 3.2 % (0.0-11.0); Neutrophils Percent Auto 87.7 % (42.0-72.0); Platelet Count* 291 K/uL (140-440); RDW Coefficient of Variation % 11.4 % (11.5-15.5); Red Blood Count 5.08 m/uL (4.30-5.90); White Blood Count* 15.05 K/uL (4.50-11.00)
[2024-08-27 13:46] LABS: Chloride* 91 mmol/L (96-114); Potassium* 3.6 mmol/L (3.6-5.1); Sodium* 126 mmol/L (135-149)
[2024-08-27 13:49] LABS: Anion Gap 12 mEq/L (7-15); Blood Urea Nitrogen* 26 mg/dL (7-30); Calcium* 9.3 mg/dL (8.4-10.6); Carbon Dioxide* 23 mmol/L (20-32); Creatinine* 1.2 mg/dL (0.5-1.5); Est. Creatinine Clearance* 64.69; Estimated Glomerular Filt Rate 64 ml/min; Glucose* 165 mg/dL (60-115); Slide Review Reflex No
[2024-08-27 13:50] LABS: Magnesium* 1.8 mg/dL (1.5-2.6)
[2024-08-27 14:09] LABS: Troponin I* < 0.01 ng/mL (0.01-0.04)
--- NOTE | 2024-08-27 14:12 | ED_ITS ---
HPI - General Adult General Date Seen: 08/27/24 Chief complaint: Urogenital Problems, Male Stated complaint: Bleeding from catheter Time Seen by Provider: 08/27/24 13:01 Source: patient Mode of arrival: ambulatory Limitations: no limitations History of Present Illness HPI narrative: Patient is a 74-year-old male presenting to the emergency department for multiple complaints. She is most concerning complaint is he is feeling lightheaded. In triage she was tachycardic in the 170s and is concerned he has AFib. He states he is feeling lightheaded intermittently for the past few days. Was seen in the emergency department this morning feeling lightheaded but states symptoms resolved on their own and was discharged home. Went to bed and woke up few hours later noticed blood in his urine along with his again lightheaded. Denies any associated chest pain, shortness of breath, weakness, numbness, abdominal pain. states while laying down his symptoms seem to have improved. This morning he states he was lightheaded and had to lower himself down from the toilet. States he might have mildly his head against the cabinet. States these intermittent episodes of lightheadedness have been going on for the past several days. He is not on any blood thinners. No history of arrhythmias as far as he is aware. He does not have a financial planning consultant. States when he woke up also he does blood and his fully. He has had the fully now for a few weeks. Initially he could not urinate and had in for 3 days and then was removed. After that he again could not urinate any was placed again. The current Fragoso has been in since 08/26/2024 at 01:00. He was also started on Cipro at that time. Is scheduled to have it removed with a voiding trial on the . Is not having any abdominal pain. Related Data Home Medications ?Medication ?Instructions ?Recorded ?Confirmed aspirin 81 mg chewable tablet 81 mg PO DAILY 06/06/22 08/27/24 Previous Rx's ?Medication ?Instructions ?Recorded epinephrine 0.3 mg/0.3 mL 0.3 ml IM .As Needed as needed PRN 07/03/23 injection, auto-injector anaphylaxis #2 ea Blood Glucose Meter #1 ea 01/01/24 Diabetic Test Strips #100 ea 01/01/24 lancets 28 gauge (Acti-Forest #100 ea 01/01/24 Lancets) metformin 1,000 mg tablet,extended 1,000 mg PO QDAY #180 tabs 01/01/24 release 24hr (osmotic) amlodipine 10 mg tablet 10 mg PO QDAY #90 tabs 07/30/24 atorvastatin 40 mg tablet 40 mg PO QHS #90 tabs 07/30/24 glipizide 10 mg tablet, extended 10 mg PO QDAY #90 tabs 07/30/24 release 24 hr lisinopril 10 mg tablet 10 mg PO QDAY #90 tabs 07/30/24 gabapentin 100 mg capsule 100 mg PO TID #30 caps 08/13/24 ciprofloxacin HCl 250 mg tablet 250 mg PO BID #10 tabs 08/26/24 Allergies Allergy/AdvReac Type Severity Reaction Status Date / Time Penicillins Allergy Verified 08/27/24 12:40 Bee venom Allergy Severe Difficulty Uncoded 03/10/24 10:03 Swallowing Review of Systems Status of ROS: Reports: 10 or more systems reviewed and unremarkable except as noted in History and below [facility] Medical History Gout ?M10.9 - Gout, unspecified (ICD-10) Hypertension ?I10 - Essential (primary) hypertension (ICD-10) Diabetes mellitus ?E11.9 - Type 2 diabetes mellitus without complications (ICD-10) Foot pain ?M79.673 - Pain in unspecified foot (ICD-10) Abnormal gait ?R26.9 - Unspecified abnormalities of gait and mobility (ICD-10) Surgical History History of amputation of toe ?Z89.429 - Acquired absence of other toe(s), unspecified side (ICD-10) History of colonoscopy ?Z98.890 - Other specified postprocedural states (ICD-10) History of tonsillectomy (1968) ?Z90.89 - Acquired absence of other organs (ICD-10) History of right-sided carotid endarterectomy ?Z98.890 - Other specified postprocedural states (ICD-10) Social History Narrative: SOCIAL HISTORY: He is single. Retired. One daughter living in [facility] that he does not see much. No longer working at [employer]. No longer working for the [employer]. 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 HABITS: Sporadic walking for exercise. Sporadic smoking in the past. He denies smoking at this point. No alcohol or recreational drug use. FAMILY HISTORY: No changes. Parents both . He did not know them well. Father around 80 of unknown cause. Mother around 70 of unknown ca ncer. Three sisters all living with borderline diabetes otherwise healthy. What is your current living situation?: I presently have a place to live Problems where you live: declined to answer In the past 12 months, utilities in danger of being shut off: no In past 12 months, lack of transportation kept you from medical appts, meetings, work, or getting things needed for daily living: no In the past 12 mos, have been you worried that your food would run out before you had money to buy more?: never true In the past 12 mos, the food you bought just didn't last and you didn't have money to buy more?: never true Smoking Status: Former smoker Do you use any of these nicotine containing products: None Second hand tobacco smoke exposure: No How often do you have a drink containing alcohol: never AUDIT-C Alcohol total score: 0 Non-prescribed substance use: denies use How often does anyone, including family, friends and others, physically hurt you : never How often does anyone, including family, friends and others, insult or talk down to you: never How often does anyone, including family, friends and others, threaten you with harm: never How often does anyone, including family, friends and others, scream or curse at you: never Exam Narrative: Exam Narrative: Const: Well-nourished, Well-developed, in mild distress Eyes: PERRL, no conjunctival injection, and symmetrical lids HENT: Atraumatic external nose and ears. Moist mucous membranes. Neck: Symmetric, trachea midline, No thyromegaly. CVS: Irregular irregular rhythm, No murmurs or gallops. Peripheral pulses 2+ and equal in all extremities RESP: Unlabored respiratory effort. Clear to auscultation bilaterally. GI: Nontender/Nondistended, No rebound or guarding. MSK:Extremities w/o deformity, Normal Active ROM Skin: Warm, Dry. No rashes or lesions. Neuro: Normal Muscle tone, No focal neurological deficits. Psych: Awake, Alert, & Oriented x3. Appropriate mood and affect. Const: Vital Signs, click to edit/add: Vital Signs - 24 hr 08/27/24 12:40 08/27/24 13:17 08/27/24 13:21 Temperature 97.7 F Pulse Rate 108 H 108 H Pulse Rate [Pulse Oximeter] 102 H Respiratory Rate 20 Blood Pressure 115/80 128/93 H Blood Pressure [Ri ght Upper Arm] 88/48 L Pulse Oximetry 96 98 98 Oxygen Delivery Me thod Room Air 08/27/24 13:30 08/27/24 13:31 08/27/24 13:45 Temperature Pulse Rate 144 H 131 H 130 H Pulse Rate [Pulse Oximeter] Respiratory Rate Blood Pressure 159/78 H Blood Pressure [Ri ght Upper Arm] Pulse Oximetry 98 98 99 Oxygen Delivery Me thod 08/27/24 13:47 08/27/24 14:02 08/27/24 14:16 Temperature Pulse Rate 112 H 125 H 132 H Pulse Rate [Pulse Oximeter] Respiratory Rate Blood Pressure 138/70 126/103 H 137/105 H Blood Pressure [Ri ght Upper Arm] Pulse Oximetry 96 98 98 Oxygen Delivery Me thod 08/27/24 14:31 08/27/24 14:46 08/27/24 15:02 Temperature Pulse Rate 126 H 96 96 Pulse Rate [Pulse Oximeter] Respiratory Rate Blood Pressure 135/94 H 128/94 H 122/69 Blood Pressure [Ri ght Upper Arm] Pulse Oximetry 97 97 96 Oxygen Delivery Me thod 08/27/24 15:27 08/27/24 15:31 08/27/24 15:47 Temperature Pulse Rate 102 H 110 H 86 Pulse Rate [Pulse Oximeter] Respiratory Rate Blood Pressure 105/83 118/77 103/69 Blood Pressure [Ri ght Upper Arm] Pulse Oximetry 93 88 96 Oxygen Delivery Me thod 08/27/24 16:02 08/27/24 16:34 Temperature Pulse Rate 91 138 H Pulse Rate [Pulse Oximeter] Respiratory Rate 16 Blood Pressure 139/72 Blood Pressure [Ri ght Upper Arm] Pulse Oximetry 95 Oxygen Delivery Me thod Course Vital Signs Vital signs: Initial Vital Signs Temperature 97.7 F 08/27/24 12:40 Temperature Source Temporal Artery Scan 08/27/24 12:40 Pulse Rate 102 H 08/27/24 12:40 Pulse Rhythm Irregular 08/27/24 12:40 Respiratory Rate 20 08/27/24 12:40 Blood Pressure 88/48 L 08/27/24 12:40 Blood Pressure Mean 61 L 08/27/24 12:40 Blood Pressure Position Sitting 08/27/24 12:40 Pulse Oximetry 96 08/27/24 12:40 Oxygen Delivery Method Room Air 08/27/24 12:40 Vital Signs Temperature 97.7 F 08/27/24 12:40 Pulse Rate 102 H 08/27/24 12:40 Respiratory Rate 20 08/27/24 12:40 Blood Pressure 88/48 L 08/27/24 12:40 Pulse Oximetry 96 08/27/24 12:40 Oxygen Delivery Method Room Air 08/27/24 12:40 Temperature 97.7 F 08/27/24 12:40 Pulse Rate 138 H 08/27/24 16:34 Respiratory Rate 16 08/27/24 16:02 Blood Pressure 139/72 08/27/24 16:02 Pulse Oximetry 95 08/27/24 16:02 Oxygen Delivery Method Room Air 08/27/24 12:40 Medications Administered Medications: Generic Name Dose Route Start Last Admin Trade Name Freq PRN Reason Stop Dose Admin Diltiazem HCl 125 mg/ Sodium 125 mls @ 5 mls/hr 08/27/24 14:50 08/27/24 15:44 Chloride IVPB 0 mls/hr .TITRATE CAMERON Infusion Protocol Discontinued Medications Generic Name Dose Route Start Last Admin Trade Name Freq PRN Reason Stop Dose Admin Digoxin 500 mcg 08/27/24 15:29 08/27/24 16:34 Digoxin 250 Mcg Tablet PO 08/27/24 15:30 500 mcg ONCE ONE Administration Diltiazem HCl 22.5 mg 08/27/24 13:26 08/27/24 13:40 Diltiazem 5 Mg/Ml Inj IVP 08/27/24 13:27 Not Given ONCE ONE Diltiazem HCl 20 mg 08/27/24 13:35 08/27/24 13:40 Diltiazem 5 Mg/Ml Inj IVP 08/27/24 13:36 20 mg ONCE ONE Administration Diltiazem HCl 30 mg 08/27/24 14:00 08/27/24 14:32 Diltiazem 5 Mg/Ml Inj IVP 08/27/24 14:01 30 mg ONCE ONE Administration Sodium Chloride 1,000 mls @ 1,000 mls/hr 08/27/24 13:30 08/27/24 14:23 0.9 % Sodium Chloride 1000 Ml IV 08/27/24 14:29 Infused .Q1H CAMERON Infusion Magnesium Sulfate/Dextrose 1 gm in 100 mls @ 100 mls/hr 08/27/24 15:27 08/27/24 16:06 Magnesium Sulf 1 G/100 Ml-D5w IVPB 08/27/24 16:26 100 mls/hr ONCE ONE Administration Metoprolol Tartrate 12.5 mg 08/27/24 15:28 08/27/24 16:34 Metoprolol Tartrate 25 Mg Tablet PO 08/27/24 15:29 12.5 mg ONCE ONE Administration Potassium Chloride 40 meq 08/27/24 15:25 08/27/24 16:35 Potassium Chloride 10 Meq Capsule Er PO 08/27/24 15:26 40 meq ONCE ONE Administration Medical Decision Making MDM Narrative Medical decision making narrative: Patient is a 74-year-old male presenting to the emergency department for hematuria and lightheadedness. Initially in triage she was hypotensive with a heart rate of 102. He was brought back initially to room 4 cassettes the when the room we had available. By that time he got there he was laid back more and now he is normotensive but tachycardic in the 170s. EKG was done immediately showing AFib with RVR. He was moved to room 8 once it was available. I spoke to him further and seems like these episodes of lightheadedness are intermittent. His blood pressure seems to be better when lying down and he is now asymptomatic other than he is still tachycardic. Based on the history it believe he is likely having paroxysmal AFib. Considering he is no longer unstable and the fact that it sounds like he has likely been having this paroxysmal AFib for 3 or 4 days I do not believe it is necessary to cardiovert him. He has increased risk of blood clots. Will instead give him 1 L of fluids and Cardizem to try and get his heart rate under control. Will also order a troponin, BMP, CBC, magnesium. Urinalysis will be ordered to look for signs of UTI. His EKG the could not definitively say it was in AFib but on the monitor it was irregular and does appear to be AFib. Lab work does come back with a white count of 15. It is slightly higher than was this morning. He is on Cipro for UTI at this time. Sodium returned at 126. Has been gradually getting worse over the past few days. Was 128 this morning. Troponin does not show any concerning findings. Did give him 2 boluses of Cardizem with no improvement in his heart rate. I spoke to the on-call financial planning consultant through [facility] in her recommendation at this time is a digoxin load when which is 500 mcg x 1 and then 6 hours later 2 doses of 250 mcg Q 6. This will be a total of 3 doses each 6 hours apart. She also recommends keeping the potassium over 4 and magnesium over 2.1. Both were replenished in the emergency department. Eliquis started for anticoagulation and was recommended do metoprolol 12.5 q.6. After this patient was admitted to the hospitalist service. He is agreeable to this plan Lab Data Labs: Lab Results 08/27/24 08/27/24 08/27/24 Range/Units 13:26 13:30 15:12 WBC 15.05 H (4.50-11.00) K/uL RBC 5.08 (4.30-5.90) m/uL Hgb 15.0 (13.5-17.5) gm/dL Hct 42.2 (37.0-53.0) % MCV 83 (80-100) fL MCH 30 (26-34) pg MCHC 36 (32-36) gm/dL RDW Coeff of Rodriguez 11.4 L (11.5-15.5) % Plt Count 291 (140-440) K/uL Neut % (Auto) 87.7 H (42.0-72.0) % Lymph % (Auto) 8.4 L (20-44) % Haakon % (Auto) 3.2 (0.0-11.0) % Eos % (Auto) 0.5 (0.0-7.0) % Baso % (Auto) 0.1 (0.0-3.0) % Neut # (Auto) 13.20 H (1.7-7.0) K/uL Lymph # (Auto) 1.30 (0.90-2.90) K/uL Haakon # (Auto) 0.50 (0.00-0.90) K/UL Eos # (Auto) 0.10 (0.00-0.50) K/uL Baso # (Auto) 0.00 (0.00-0.30) K/uL Abs Immat Gran (auto) 0.00 (0.00-0.30) K/uL Imm/Tot Granulo (auto) 0.1 % Sodium 126 L (135-149) mmol/L Potassium 3.6 (3.6-5.1) mmol/L Chloride 91 L (96-114) mmol/L Carbon Dioxide 23 (20-32) mmol/L Anion Gap 12 (7-15) mEq/L BUN 26 (7-30) mg/dL Creatinine 1.2 (0.5-1.5) mg/dL Estimated Creat Clear 64.69 Estimated GFR 64 ml/min Glucose 165 H (60-115) mg/dL Calcium 9.3 (8.4-10.6) mg/dL Magnesium 1.8 (1.5-2.6) mg/dL Troponin I < 0.01 L (0.01-0.04) ng/mL Urine Color Yellow (Yellow) Urine Appearance Clear (Clear) Urine pH 5.5 (5.0-8.5) Ur Specific Dyess 1.010 (1.000-1.030) Urine Protein Negative (Negative) Urine Glucose (UA) Negative (Negative) Urine Ketones 1+ A (Negative) Urine Blood 3+ A (Negative) Urine Nitrite Negative (Negative) Urine Bilirubin Negative (Negative) Urine Urobilinogen 0.2 (0.2-1.0) Ur Leukocyte Esterase Trace A (Negative) POC Troponin I 0.00 L (0.01-0.04) ng/ml ECG Data Attestation: I personally reviewed and interpreted this ECG as follows: Prior ECG tracings: available for review Interpretation: Atrial fibrillation with a rate of 1-59 beats per minute, normal axis, no ST or T-wave abnormalities. Critical Care Time Critical Care Time Critical Care Time: Yes Attestation: The patient required my highest level preparedness to intervene emergently and I personally spent this critical care time directly and personally managing the patient. This critical care time included: Obtaining a history; Examining the patient; Pulse oximetry; Ordering and reviewing of studies; Arranging urgent treatment with development of a management plan; Evaluation of patients response to treatment; Frequent reassessment discussions with other providers. This critical care time was performed to assess and manage the high probability of imminent life-threatening deterioration that could result in multiorgan failure. It was exclusive of separate billable procedures and treating other patients and teaching time. Total Critical Care Time in Minutes: 35 Discharge Plan Discharge Clinical Impression: Atrial fibrillation with RVR, Acute hyponatremia Hematuria Qualifiers: Hematuria type: unspecified type Qualified Code(s): R31.9 - Hematuria, unspecified Patient Disposition: Admitted As Observation Condition: Stable
[2024-08-27] MEDS: dilTIAZem 5 MG/ML inj 30 MG IVP (14:32)
[2024-08-27] MEDS: dilTIAZem HCL 125 MG in 0.9 % SODIUM CHLORIDE 100 ml 100 ML IVPB ×2 (15:07→20:19)
[2024-08-27 16:07] LABS: Appearance Urine Clear (Clear); Bilirubin Urine Negative (Negative); Blood Urine 3+ (Negative); Color Urine Yellow (Yellow); Glucose Urine Negative (Negative); Ketones Urine 1+ (Negative); Leukocyte Esterase Urine Trace (Negative); Nitrite Urine Negative (Negative); Protein Urine Negative (Negative); Urobilinogen Urine 0.2 (0.2-1.0); pH Urine 5.5 (5.0-8.5)
[2024-08-27] MEDS: METOPROLOL TARTRATE 25 MG TABLET 12.5 MG PO (16:34)
[2024-08-27] MEDS: DIGOXIN 250 MCG TABLET 500 MCG PO (16:34)
[2024-08-27] MEDS: POTASSIUM CHLORIDE 10 MEQ CAPSULE ER 40 MEQ PO (16:35)
[2024-08-27 16:41] LABS: Amorphous Sediment Urine Few; RBC Urine 0-2 (0-2); WBC Urine 0-2 (0-5)
--- NOTE | 2024-08-27 18:54 | CRLHL7_ITS ---
For Patients: As a result of the Century Cures Act, medical imaging exams and procedure reports are released immediately into your electronic medical record. You may view this report before your referring provider. If you have questions, please contact your health care provider. INDICATION: Leg pain and swelling. TECHNIQUE: Ultrasound venous duplex bilateral lower extremity. Compression venous exam was performed using padgett-scale, color Doppler, and spectral Doppler analysis. COMPARISON: Lower extremity ultrasound August 20 FINDINGS: Deep veins: Sonographic imaging demonstrates bilateral common femoral, deep femoral, superficial femoral, popliteal, posterior tibial veins to be fully compressible with normal color Doppler blood flow. Superficial veins: Greater saphenous vein is fully compressible. IMPRESSION: Normal bilateral lower extremity venous ultrasound, no sign of deep venous thrombosis. Dictated by Jerrell Handy MD @ 08/27/2024 8:34:55 PM (Electronically Signed)
--- NOTE | 2024-08-27 18:55 | PM.IMHP1 ---
Hospitalist- H&P: HPI History of Present Illness Date Seen: 08/27/24 Chief complaint: Bleeding from catheter Narrative: Suresh Martinez is a 74 year old male past medical history significant for type 2 diabetes mellitus, hypertension, hyperlipidemia, chronic low back pain, previous CVA July 2020, bladder cancer 2014 is admitted to the medical floor from the ED for further management new onset AFib with RVR, hyponatremia. Patient has been in our ED multiple times in the new year, August 13 and for low back pain radiating down his right leg. He was in in the ED on the and the with urinary retention and currently has an indwelling Pandey catheter in place. He returns to the ED today with complaint of dizziness. He 1st noticed this episode of dizziness around 2:00 a.m. when he awoke to empty his Pandey catheter bag. He has had some ongoing lightheadedness, specifically when going from sitting to standing. He was noted to have a drop in his blood pressure in the ED as well as on arrival to the floor. He denies headache. Denies chest pain or shortness of breath. No recent cough. No recent fevers or chills. Has not had recent vomiting or diarrhea. He has had previous episodes of dizzy spells. He had a CVA in 2019 and at that time his symptoms were unsteadiness on his feet as well as lightheadedness. CTA of the head neck showed severe stenosis with immediate vascular surgery intervention. He continues to complain of right lower extremity pain. He is scheduled for an MRI of that extremity as well. In the ED, patient was found to be tachycardic, atrial fibrillation with RVR. He was given a few doses of diltiazem to which he was not responding. ED provider did discuss with Cardiology who recommended Q 6 hour dosing of metoprolol as well as loading with digoxin followed by 2 more doses of digoxin q.6 hours. On arrival to the floor, heart rate remains 130-150s. He denies feeling his heart racing nor palpitations. PCP is Dr. Juarez Review of Systems Narrative: REVIEW OF SYSTEMS: Complete review of systems performed and negative unless otherwise stated in HPI or below. [facility] Medical History Gout ?M10.9 - Gout, unspecified (ICD-10) Hypertension ?I10 - Essential (primary) hypertension (ICD-10) Diabetes mellitus ?E11.9 - Type 2 diabetes mellitus without complications (ICD-10) Foot pain ?M79.673 - Pain in unspecified foot (ICD-10) Abnormal gait ?R26.9 - Unspecified abnormalities of gait and mobility (ICD-10) Surgical History History of amputation of toe ?Z89.429 - Acquired absence of other toe(s), unspecified side (ICD-10) History of colonoscopy ?Z98.890 - Other specified postprocedural states (ICD-10) History of tonsillectomy (1968) ?Z90.89 - Acquired absence of other organs (ICD-10) History of right-sided carotid endarterectomy ?Z98.890 - Other specified postprocedural states (ICD-10) Social History Narrative: SOCIAL HISTORY: He is single. Retired. One daughter living in [facility] that he does not see much. No longer working at [employer]. No longer working for the [employer]. 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 HABITS: Sporadic walking for exercise. Sporadic smoking in the past. He denies smoking at this point. No alcohol or recreational drug use. FAMILY HISTORY: No changes. Parents both . He did not know them well. Father around 80 of unknown cause. Mother around 70 of unknown cancer. Three sisters all living with borderline diabetes otherwise healthy. What is your current living situation?: I presently have a place to live Problems where you live: no known problems Problems where you live details: N/A In the past 12 months, utilities in danger of being shut off: no In past 12 months, lack of transportation kept you from medical appts, meetings, work, or getting things needed for daily living: no In the past 12 mos, have been you worried that your food would run out before you had money to buy more?: never true In the past 12 mos, the food you bought just didn't last and you didn't have money to buy more?: never true Highest level of school completed/degree received: high school graduate Smoking Status: Former smoker Do you use any of these nicotine containing products: None Second hand tobacco smoke exposure: No How often do you have a drink containing alcohol: never AUDIT-C Alcohol total score: 0 Non-prescribed substance use: denies use How often does anyone, including family, friends and others, physically hurt you: never How often does anyone, including family, friends and others, insult or talk down to you: never How often does anyone, including family, friends and others, threaten you with harm: never How often does anyone, including family, friends and others, scream or curse at you: never service: Yes Meds Home Medications and Allergies Home Medications ?Medication ?Instructions ?Recorded ?Confirmed ?Type aspirin 81 mg chewable tablet 81 mg PO DAILY 06/06/22 08/27/24 History Allergies Allergy/AdvReac Type Severity Reaction Status Date / Time Penicillins Allergy Verified 08/27/24 12:40 Bee venom Allergy Severe Difficulty Uncoded 03/10/24 10:03 Swallowing Exam Narrative: Exam Narrative: PHYSICAL EXAM General: Pleasant, conversant, NAD HEENT: Normocephalic, atraumatic, sclera white, EOMI, oral mucosa moist Cardiovascular: IRRR No pitting edema Pulmonary: CTA bilaterally without rhonchi, rales, expiratory wheezes. No dyspnea on room air Abdominal: Soft, nondistended, NTTP Neurological: Alert, answering questions appropriately, cranial nerves intact, no focal findings on my exam currently Extremities: No gross joint deformity or swelling. AROMI. Negative Homans. Neurovascularly intact Skin: Warm, dry. Const: Vital Signs, click to edit/add: Vital Signs - 24 hr 08/27/24 12:40 08/27/24 13:17 08/27/24 13:21 Temperature 97.7 F Pulse Rate 108 H 108 H Pulse Rate [Left A pical] Pulse Rate [Pulse Oximeter] 102 H Respiratory Rate 20 Blood Pressure 115/80 128/93 H Blood Pressure [Ri ght Arm] Blood Pressure [Ri ght Upper Arm] 88/48 L Pulse Oximetry 96 98 98 Oxygen Delivery Me thod Room Air 08/27/24 13:30 08/27/24 13:31 08/27/24 13:45 Temperature Pulse Rate 144 H 131 H 130 H Pulse Rate [Left A pical] Pulse Rate [Pulse Oximeter] Respiratory Rate Blood Pressure 159/78 H Blood Pressure [Ri ght Arm] Blood Pressure [Ri ght Upper Arm] Pulse Oximetry 98 98 99 Oxygen Delivery Nh thod 08/27/24 13:47 08/27/24 14:02 08/27/24 14:16 Temperature Pulse Rate 112 H 125 H 132 H Pulse Rate [Left A pical] Pulse Rate [Pulse Oximeter] Respiratory Rate Blood Pressure 138/70 126/103 H 137/105 H Blood Pressure [Ri ght Arm] Blood Pressure [Ri ght Upper Arm] Pulse Oximetry 96 98 [facility] 14:31 08/27/24 14:46 08/27/24 15:02 Temperature Pulse Rate 126 H 96 96 Pulse Rate [Left A pical] Pulse Rate [Pulse Oximeter] Respiratory Rate Blood Pressure 135/94 H 128/94 H 122/69 Blood Pressure [Ri ght Arm] Blood Pressure [Ri ght Upper Arm] Pulse Oximetry 97 97 96 [facility] 08/27/24 15:27 08/27/24 15:31 08/27/24 15:47 Temperature Pulse Rate 102 H 110 H 86 Pulse Rate [Left A pical] Pulse Rate [Pulse Oximeter] Respiratory Rate Blood Pressure 105/83 118/77 103/69 Blood Pressure [Ri ght Arm] Blood Pressure [Ri ght Upper Arm] Pulse Oximetry 93 88 96 [facility] 08/27/24 16:02 08/27/24 16:34 08/27/24 17:42 Temperature 97.8 F Pulse Rate 91 138 H Pulse Rate [Left A pical] 132 H Pulse Rate [Pulse Oximeter] Respiratory Rate 16 18 Blood Pressure 139/72 Blood Pressure [Ri ght Arm] 136/78 Blood Pressure [Ri ght Upper Arm] Pulse Oximetry 95 98 [facility] Hospitalist - H&P: Result Labs Labs: Short CBC 08/27/24 Range/Units 13:26 WBC 15.05 H (4.50-11.00) K/uL Hgb 15.0 (13.5-17.5) gm/dL Hct 42.2 (37.0-53.0) % Plt Count 291 (140-440) K/uL BMP 08/27/24 13:26 Sodium 126 L Potassium 3.6 Chloride 91 L Carbon Dioxide 23 BUN 26 Creatinine 1.2 Glucose 165 H Calcium 9.3 Cardiac Enzymes 08/27/24 Range/Units 13:26 Troponin I < 0.01 L (0.01-0.04) ng/mL Urine 08/27/24 Range/Units 15:12 Urine Color Yellow (Yellow) Urine Appearance Clear (Clear) Urine pH 5.5 (5.0-8.5) Ur Specific [place] 1.010 (1.000-1.030) Urine Protein Negative (Negative) Urine Glucose (UA) Negative (Negative) ECG Attestation: I personally reviewed and interpreted this ECG as follows: ECG interpretation date: 08/27/24 Interpretation: In reviewing scanned EKG, appears to be in atrial fibrillation versus sinus tach Imaging CT scan - head: Attestation: I have reviewed the pertinent imaging results. Radiologist's impression: CSF spaces: Proportionate prominence of the ventricles and sulci, reflecting mild generalized cerebral volume loss. Brain parenchyma: Chronic lacunar infarct right basal ganglia, unchanged. The padgett-white differentiation is otherwise maintained. Patchy white matter low attenuation changes, nonspecific but likely reflecting chronic small vessel ischemic disease. No sign of mass, hemorrhage, or midline shift. Skull base and calvarium: The visualized paranasal sinuses and mastoid air cells demonstrate no acute or significant findings. Bilateral cataract extraction. No skull fractures. IMPRESSION: No acute intracranial abnormality. Doppler ultrasound bilateral lower extremities: Attestation: I have reviewed the pertinent imaging results. Radiologist's impression: Deep veins: Sonographic imaging demonstrates bilateral common femoral, deep femoral, superficial femoral, popliteal, posterior tibial veins to be fully compressible with normal color Doppler blood flow. Superficial veins: Greater saphenous vein is fully compressible. IMPRESSION: Normal bilateral lower extremity venous ultrasound, no sign of deep venous thrombosis. Assessment and Plan Assessment and plan (1) Atrial fibrillation with RVR: Problem comment: -new onset AFib with RVR -bumps of diltiazem in the ED ineffective -ED provider discussed with [facility] - recommended loading dose digoxin 500 mcg followed by 250 mcg Q 6 hours x2. Also suggested oral metoprolol 12.5 mg q.6. Recommended maintaining potassium >4 and magnesium >2 -as HR continued >130 on floor, diltiazem drip was started. Eventually converted to NSR, EKG confirmed. Started oral dosing diltiazem 30 mg q.i.d.. Dilt drip was at 5 mg/hour so ideal dose probably 180 mg per day on discharge -last dose of digoxin will be 4:30 a.m.. Will need maintenance dosing upon discharge -started on Eliquis -recheck Mag and BMP in a.m. -echocardiogram ordered -will need outpatient cardiology consult Status: Acute (2) Dizziness: Problem comment: -most likely in setting of atrial fibrillation, likely paroxysmal over the last several days, possibly even in the past -new medications could be contributing as well -Cipro, oxy, Flomax, gabapentin -also similar symptoms with previous CVA. No other focal findings. CT head obtained, acutely unremarkable -improved with conversion to NSR Status: Acute (3) Acute hyponatremia: Problem comment: -sodium 126, this has decreased from 130 over the past 48 hours -reports drinking more water in order to stay hydrated over the last couple of days -received NS IVF in the ED -fluid restriction -continue to monitor Status: Acute (4) Acute urinary retention: Problem comment: -acute on chronic recurrent -UC from 08/22 and 08/26 unremarkable -discontinue Cipro as this may be contributing to dizziness -continue Pandey cares. Outpatient follow-up with Urology Status: Acute (5) Type 2 diabetes mellitus with peripheral neuropathy: Problem comment: -most recent A1c 6.8 -continue glipizide, hold metformin -glucose checks ACHS, insulin sliding scale Status: Acute (6) Hypertension: Problem comment: -orthostatic hypotension in ED and on floor -holding home lisinopril and amlodipine in setting of managing new onset AFib with RVR Status: Acute (7) Hyperlipidemia: Problem comment: -continue statin and aspirin Status: Acute (8) Chronic low back pain: Problem comment: -with previous history of radiculopathy in the past. Doppler venous ultrasound negative for DVT -has done physical therapy -recently given oxycodone, which could be contributing to his dizziness as well -reports having an upcoming MRI scheduled. Further outpatient follow-up and management options Status: Acute (9) Bladder cancer: Problem comment: -Diagnosed 2013 with nml PSA as of 08/2017 -history of urinary retention Status: Acute (10) Leukocytosis: Problem comment: -WBC 15.05, this has trended up from yesterday. Afebrile, no respiratory symptoms, UC x2 unremarkable, pandey cath placed yesterday 08/26 -stopped oral Cipro given for UTI as UC x2 unremarkable -BC pending, repeat UC pending. Could consider CXR if becomes symptomatic -recheck in a.m. Status: Acute
--- NOTE | 2024-08-27 19:01 | CRLHL7_ITS ---
For Patients: As a result of the Century Cures Act, medical imaging exams and procedure reports are released immediately into your electronic medical record. You may view this report before your referring provider. If you have questions, please contact your health care provider. INDICATION: Dizziness. TECHNIQUE: CTA neck with contrast bolus tracking, 3D angiographic rendering using maximum intensity projection (MIP) and images permanently archived. Comparison: 10/23/2022. FINDINGS: There are postoperative findings of a right carotid endarterectomy without residual or recurrent stenosis. There is left carotid atherosclerosis without significant stenosis. There is scattered vertebral atherosclerosis with moderate bilateral vertebral artery origin stenoses, unchanged. There is no evidence for dissection. The soft tissues of the neck are within normal limits. The cervical spine is in normal alignment. IMPRESSION: 1. Right CEA without residual or recurrent stenosis. 2. Left carotid atherosclerosis without significant stenosis. 3. Moderate bilateral vertebral artery origin stenoses, unchanged. Please note that all CT scans at this facility use dose modulation, iterative reconstruction, and/or weight-based dosing when appropriate to reduce radiation dose to as low as reasonably achievable. Dictated by Freddy Ball MD @ 08/28/2024 7:40:11 AM (Electronically Signed)
--- NOTE | 2024-08-27 19:01 | CRLHL7_ITS ---
For Patients: As a result of the Century Cures Act, medical imaging exams and procedure reports are released immediately into your electronic medical record. You may view this report before your referring provider. If you have questions, please contact your health care provider. INDICATION: Dizziness. TECHNIQUE: CTA head with contrast bolus tracking, 3D angiographic rendering using maximum intensity projection (MIP) and images permanently archived. Comparison: 10/23/2022. FINDINGS: There is scattered intracranial atherosclerotic disease. There is a focal severe stenosis of the intracranial left vertebral artery. There is otherwise normal opacification of the intracranial vasculature. There is no large vessel occlusion. No aneurysm is identified. 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 Please note that all CT scans at this facility use dose modulation, iterative reconstruction, and/or weight-based dosing when appropriate to reduce radiation dose to as low as reasonably achievable. Dictated by Freddy Ball MD @ 08/28/2024 7:37:06 AM (Electronically Signed)
[2024-08-27] MEDS: 0.9 % SODIUM CHLORIDE 1000 ml 1,000 ML 125 ML IV (19:29)
[2024-08-27 19:47] LABS: D Dimer Quantitative* 0.39 ug/ml (0.00-0.50)
[2024-08-27] MEDS: MELATONIN 3 MG TABLET PO (21:26)
[2024-08-27] MEDS: GABAPENTIN 100 MG CAPSULE PO (21:26)
[2024-08-27] MEDS: APIXABAN 5 MG TABLET PO (21:27)
[2024-08-27] MEDS: ATORVASTATIN CALCIUM 40 MG TABLET PO (21:27)
[2024-08-27] MEDS: SODIUM CHLORIDE 0.9 % (FLUSH) 10 ML SYRINGE 5 ML IVF (21:27)
[2024-08-27] MEDS: INSULIN ASPART 100 UNIT/ML SUBCUT (21:27)
[2024-08-27] MEDS: dilTIAZem 30 MG TABLET PO (21:34)
[2024-08-27] MEDS: DIGOXIN 250 MCG TABLET PO (22:38)
[2024-08-28] VITALS (17 sets, daily range): BP systolic 103–179; BP diastolic 58–93; PULSE 62–95; RESP 16–18; TEMP 36.4–37.3; O2SAT 92–96
--- NOTE | 2024-08-28 00:10 | PC.NURSE ---
End of Shift: Patient admitted to CCU1. Pleasant and cooperative. Afebrile. Tele showing a-fib with heart rate 110-150. MD in to see pt. Diltiazem drip started at 2019. Patient converted to NSR around 2039. MD updated and EKG done. Drip turned down to 2.5 mg/hr per provider. Oral diltiazem given and drip stopped one hour after administration. Patient c/o dizziness with standing. Orthostatic BP completed. Patient tolerating regular diet with no nausea. Rating pain in right leg 1-3/10 and denies need for PRN pain medication. Fragoso patent.
[2024-08-28] MEDS: dilTIAZem 30 MG TABLET PO ×4 (02:54→21:32)
[2024-08-28] MEDS: 0.9 % SODIUM CHLORIDE 1000 ml 1,000 ML 125 ML IV ×2 (04:23→13:41)
[2024-08-28] MEDS: DIGOXIN 250 MCG TABLET PO (04:23)
--- NOTE | 2024-08-28 06:59 | PC.NURSE ---
End of shift summary: Pt has been A&O, afebrile and VSS. HR remains NSR rate in the 60s-70s bpm. Fragoos catheter patent & draining. Urine was clear, pale yellow beginning of shift and has gotten darker in color as the night went on. Total output: 1350 mL. PIV in left AC SL and PIV in right FA infusing NS @ 125mL/hr. Pt has been independent with bed mobility but not out of bed overnight d/t dizziness with standing. Compliant with 1800 mL fluid restriction overnight. Physical assessment unremarkable. Pt requested vaseline jelly for penile discomfort with catheter. No PRN pain meds given overnight. ?
[2024-08-28 07:02] LABS: Hematocrit 38.8 % (37.0-53.0); Hemoglobin* 13.7 gm/dL (13.5-17.5); Mean Corpuscular HGB Conc 35 gm/dL (32-36); Mean Corpuscular Hemoglobin 30 pg (26-34); Mean Corpuscular Volume 84 fL (80-100); Platelet Count* 281 K/uL (140-440); Red Blood Count 4.62 m/uL (4.30-5.90); White Blood Count* 12.55 K/uL (4.50-11.00)
[2024-08-28 07:04] LABS: Slide Review Reflex No
[2024-08-28 07:15] LABS: Chloride* 99 mmol/L (96-114)
[2024-08-28 07:16] LABS: Potassium* 3.8 mmol/L (3.6-5.1); Sodium* 132 mmol/L (135-149)
[2024-08-28 07:18] LABS: Anion Gap 8 mEq/L (7-15); Carbon Dioxide* 25 mmol/L (20-32); Creatinine* 0.9 mg/dL (0.5-1.5); Est. Creatinine Clearance* 77.63; Estimated Glomerular Filt Rate 91 ml/min
[2024-08-28 07:19] LABS: Blood Urea Nitrogen* 19 mg/dL (7-30); Calcium* 8.6 mg/dL (8.4-10.6); Glucose* 123 mg/dL (60-115)
[2024-08-28 07:22] LABS: C Reactive Protein* 3.7 mg/dL (0.5-1.0)
[2024-08-28] MEDS: glipiZIDE XL 5 MG TAB 10 MG PO (08:52)
[2024-08-28] MEDS: SODIUM CHLORIDE 0.9 % (FLUSH) 10 ML SYRINGE 5 ML IVF (08:52)
[2024-08-28] MEDS: APIXABAN 5 MG TABLET PO ×2 (08:52→21:32)
[2024-08-28] MEDS: GABAPENTIN 100 MG CAPSULE PO ×3 (08:52→21:32)
[2024-08-28] MEDS: ACETAMINOPHEN 500 MG TABLET 1000 MG PO (09:48)
[2024-08-28] MEDS: LACTATED RINGERS 500 ML 500 ML IV (10:00)
--- NOTE | 2024-08-28 12:52 | PC.NURSE ---
Shift Summary: patient pleasant and cooperative. Up at bedside for orthostatic BPs with SBA, patient states when standing has dizziness. MD ordered 500cc bolus, see MAR, vitals taken an hour following bolus and patient still having lower BP and dizziness when standing. Urine output dark/lulu this AM, some improvement following bolus. Patient aware of fluid restriction and agreeable. Echo done today. pain in right knee, managed with PRN medication. Denies SOB, no nausea, tolerating regular diet well.
--- NOTE | 2024-08-28 15:31 | P.IMPN_ITS ---
Progress Note: A&P Assessment and plan (1) Atrial fibrillation with RVR: Problem details: -new onset AFib with RVR, converted 08/27/24 while on diltiazem and digoxin. Completed dig load. Continue oral diltiazem and oral digoxin. Check dig level in 1 week. ECHO as above. -started on Eliquis 08/27/24 -Mag and BMP okay -will need outpatient cardiology consult Status: Acute (2) Dizziness: Problem details: -also similar symptoms with previous CVA. No other focal findings. CT head obtained, acutely unremarkable -improved with conversion to NSR -initially suspected to be secondary to atrial fibrillation, likely paroxysmal over the last several days, possibly even in the past, however patient endorses that this was much worse in the last week and since starting new medications. Both oxycodone and especially Flomax can contribute to orthostatic hypotension. Hold Flomax. Gave IV fluid bolus this morning. Recheck orthostatic blood pressures. Also have PT and OT evaluate balance and ambulation today. Anticipate likely be able to discharge home tomorrow if he is improving. Status: Acute (3) Acute hyponatremia: Problem details: -sodium 126, this has decreased from 130 over the past 48 hours -reports drinking more water in order to stay hydrated over the last couple of days -received NS IVF in the ED -sodium 132 today, monitor Status: Acute (4) Acute urinary retention: Problem details: -acute on chronic recurrent -UC from 08/22 and 08/26 unremarkable -discontinue Cipro as this may be contributing to dizziness -continue Pandey cares. Will hold Flomax secondary to orthostatic hypotension. Outpatient follow-up with Urology Status: Acute (5) Type 2 diabetes mellitus with peripheral neuropathy: Problem details: -most recent A1c 6.8 -continue glipizide, restart metformin -glucose checks ACHS, insulin sliding scale Status: Chronic (6) Hypertension: Problem details: -orthostatic hypotension in ED and on floor, as above under dizziness -holding home lisinopril and amlodipine in setting of managing new onset AFib with RVR Status: Chronic (7) Hyperlipidemia: Problem details: -continue statin and aspirin Status: Chronic (8) Chronic low back pain: Problem details: -with previous history of radiculopathy in the past. Doppler venous ultrasound negative for DVT -has done physical therapy -recently given oxycodone, which could be contributing to his dizziness as well -reports having an upcoming MRI scheduled. Further outpatient follow-up and management options Status: Acute (9) Bladder cancer: Problem details: -Diagnosed 2013 with nml PSA as of 08/2017 -history of urinary retention Status: Chronic (10) Leukocytosis: Problem details: -WBC 15.05 on admission, trending down to 12.55 today. Afebrile, no respiratory symptoms, UC x2 unremarkable, pandey cath placed yesterday 08/26 -stopped oral Cipro given for UTI as UC x2 unremarkable -BC NGTD, repeat UC NG. Could consider CXR if becomes symptomatic Status: Acute Time Spent With Patient Total time spent: Today I spent 50minutes seeing the patient, reviewing Expanse and EPIC notes/diagnostics/labs, discussing the care plan with our care team that includes social work, PT/OT, pharmacy, RT, mcc and documenting my impressions and plan in the medical record. Subjective Time Seen by Provider: 09:30 Date Seen: 08/28/24 Interval history: Suresh's main complaint is that his R leg still hurts. He notes that he had an appointment for it this morning. He thought it was for an MRI or some sort of imaging at the rehab center on [facility]. He was confused about the details of this. I looked it up and saw that he did have an appointment for this morning with an ortho PA for this R leg pain thought to be possible hamstring injury. He denies chest pain or shortness of breath. He is somewhat orthostatics yet: with standing he complains of dizziness. He notes that this has actually been going on for about 4 - 5 months. He says the orthostatic symptoms got much worse in the last week when he started taking the new medications that were prescribed, tamsulosin and oxycodone. That is when he had an episode that he almost fainted which brought him to the emergency department. Indeed upon my review of the recent ER notes, he had dizziness that was severe enough to cause him to come to the emergency department after his 1st dose of Flomax. Exam Narrative: Exam Narrative: General: No acute distress. Awake, alert, oriented x3. No pallor. No jaundice. Oropharynx: Clear. Mucous membranes moist. Cardiovascular: Regular rate and rhythm. No murmurs, gallops, or rubs. Respiratory: Clear to auscultation bilaterally. No wheezes or crackles. Abdomen: Bowel sounds present. Soft, nondistended, nontender. Extremities: No lower extremity edema. No deformity. Nontender to palpation of left lower extremity. Const: Vital Signs, click to edit/add: Vital Signs - 24 hr 08/27/24 15:47 08/27/24 16:02 08/27/24 16:34 Temperature Pulse Rate 86 91 138 H Pulse Rate [Left A pical] Pulse Rate [Pulse Oximeter] Pulse Rate [orthos tatic lying Apical ] Pulse Rate [orthos tatic sitting Apic al] Pulse Rate [orthos tatic standing Api alonso] Respiratory Rate 16 Blood Pressure 103/69 139/72 Blood Pressure [Le ft Arm] Blood Pressure [Ri ght Arm] Blood Pressure [or thostatic lying Ri ght Arm] Blood Pressure [or thostatic sitting Right Arm] Blood Pressure [or thostatic standing Right Arm] Pulse Oximetry 96 95 Oxygen Delivery Me thod 08/27/24 17:42 08/27/24 18:00 08/27/24 19:06 Temperature 97.8 F 97.4 F L Pulse Rate Pulse Rate [Left A pical] 132 H 132 H Pulse Rate [Pulse Oximeter] Pulse Rate [orthos tatic lying Apical ] 131 H Pulse Rate [orthos tatic sitting Apic al] 129 H Pulse Rate [orthos tatic standing Api alonso] 118 H Respiratory Rate 18 16 Blood Pressure Blood Pressure [Le ft Arm] Blood Pressure [Ri ght Arm] 136/78 126/87 Blood Pressure [or thostatic lying Ri ght Arm] 132/93 H Blood Pressure [or thostatic sitting Right Arm] 106/53 L Blood Pressure [or thostatic standing Right Arm] 74/60 L Pulse Oximetry 98 97 Oxygen Delivery Me thod Room Air Room Air 08/27/24 19:06 08/27/24 20:20 08/27/24 20:25 Temperature Pulse Rate 122 H Pulse Rate [Left A pical] 144 H 118 H Pulse Rate [Pulse Oximeter] Pulse Rate [orthos tatic lying Apical ] Pulse Rate [orthos tatic sitting Apic al] Pulse Rate [orthos tatic standing Api alonso] Respiratory Rate Blood Pressure Blood Pressure [Le ft Arm] 126/78 123/65 Blood Pressure [Ri ght Arm] Blood Pressure [or thostatic lying Ri ght Arm] Blood Pressure [or thostatic sitting Right Arm] Blood Pressure [or thostatic standing Right Arm] P[facility] Oximetry [facility] 08/[facility] 20:30 08/27/24 20:35 08/27/24 20:40 Temperature Pulse Rate Pulse Rate [Left A pical] 124 H 157 H 91 Pulse Rate [Pulse Oximeter] Pulse Rate [orthos tatic lying Apical ] Pulse Rate [orthos tatic sitting Apic al] Pulse Rate [orthos tatic standing Api alonso] Respiratory Rate Blood Pressure Blood Pressure [Le ft Arm] 127/71 102/69 139/70 Blood Pressure [Ri ght Arm] Blood Pressure [or thostatic lying Ri ght Arm] Blood Pressure [or thostatic sitting Right Arm] Blood Pressure [or thostatic standing Right Arm] Pulse Oximetry [facility] 08/27/24 20:40 08/27/24 21:05 08/27/24 21:15 Temperature Pulse Rate 91 Pulse Rate [Left A pical] 79 77 Pulse Rate [Pulse Oximeter] Pulse Rate [orthos tatic lying Apical ] Pulse Rate [orthos tatic sitting Apic al] Pulse Rate [orthos tatic standing Api alonso] Respiratory Rate Blood Pressure Blood Pressure [Le ft Arm] 136/64 150/67 H Blood Pressure [Ri ght Arm] Blood Pressure [or thostatic lying Ri ght Arm] Blood Pressure [or thostatic sitting Right Arm] Blood Pressure [or thostatic standing Right Arm] Pulse Oximetry [facility] 08/27/24 21:30 08/27/24 21:45 08/27/24 22:00 Temperature Pulse Rate Pulse Rate [Left A pical] 68 87 79 Pulse Rate [Pulse Oximeter] Pulse Rate [orthos tatic lying Apical ] Pulse Rate [orthos tatic sitting Apic al] Pulse Rate [orthos tatic standing Api alonso] Respiratory Rate Blood Pressure Blood Pressure [Le ft Arm] 141/68 H 144/106 H 127/64 Blood Pressure [Ri ght Arm] Blood Pressure [or thostatic lying Ri ght Arm] Blood Pressure [or thostatic sitting Right Arm] Blood Pressure [or thostatic standing Right Arm] Pulse Oximetry [facility] 08/27/24 22:15 08/27/24 22:30 08/27/24 22:38 Temperature Pulse Rate 76 Pulse Rate [Left A pical] 80 74 Pulse Rate [Pulse Oximeter] Pulse Rate [orthos tatic lying Apical ] Pulse Rate [orthos tatic sitting Apic al] Pulse Rate [orthos tatic standing Api alonso] Respiratory Rate Blood Pressure Blood Pressure [Le ft Arm] 121/65 140/74 H Blood Pressure [Ri ght Arm] Blood Pressure [or thostatic lying Ri ght Arm] Blood Pressure [or thostatic sitting Right Arm] Blood Pressure [or thostatic standing Right Arm] Pulse Oximetry Oxygen Delivery Me thod 08/27/24 23:30 08/27/24 23:30 08/27/24 23:30 Temperature 97.1 F L Pulse Rate 71 Pulse Rate [Left A pical] 74 72 Pulse Rate [Pulse Oximeter] Pulse Rate [orthos tatic lying Apical ] Pulse Rate [orthos tatic sitting Apic al] Pulse Rate [orthos tatic standing Api alonso] Respiratory Rate 16 16 Blood Pressure Blood Pressure [Le ft Arm] 125/68 Blood Pressure [Ri ght Arm] Blood Pressure [or thostatic lying Ri ght Arm] Blood Pressure [or thostatic sitting Right Arm] Blood Pressure [or thostatic standing Right Arm] Pulse Oximetry 94 Oxygen Delivery Nm thod Room Air 08/28/24 00:45 08/28/24 02:00 08/28/24 03:00 Temperature 97.6 F 98 F Pulse Rate 62 Pulse Rate [Left A pical] 70 63 Pulse Rate [Pulse Oximeter] Pulse Rate [orthos tatic lying Apical ] Pulse Rate [orthos tatic sitting Apic al] Pulse Rate [orthos tatic standing Api alonso] Respiratory Rate 16 16 Blood Pressure Blood Pressure [Le ft Arm] 123/68 145/69 H Blood Pressure [Ri ght Arm] Blood Pressure [or thostatic lying Ri ght Arm] Blood Pressure [or thostatic sitting Right Arm] Blood Pressure [or thostatic standing Right Arm] Pulse Oximetry 95 94 Oxygen Delivery Nm thod Room Air Room Air 08/28/24 03:00 08/28/24 04:00 08/28/24 04:23 Temperature 97.8 F Pulse Rate 66 Pulse Rate [Left A pical] 62 Pulse Rate [Pulse Oximeter] 66 Pulse Rate [orthos tatic lying Apical ] Pulse Rate [orthos tatic sitting Apic al] Pulse Rate [orthos tatic standing Api alonso] Respiratory Rate 16 16 Blood Pressure Blood Pressure [Le ft Arm] 135/88 Blood Pressure [Ri ght Arm] Blood Pressure [or thostatic lying Ri ght Arm] Blood Pressure [or thostatic sitting Right Arm] Blood Pressure [or thostatic standing Right Arm] Pulse Oximetry 95 Oxygen Delivery Me thod Room Air 08/28/24 06:00 08/28/24 07:48 08/28/24 08:00 Temperature 97.6 F 97.9 F Pulse Rate 71 Pulse Rate [Left A pical] Pulse Rate [Pulse Oximeter] 65 78 Pulse Rate [orthos tatic lying Apical ] Pulse Rate [orthos tatic sitting Apic al] Pulse Rate [orthos tatic standing Api alonso] Respiratory Rate 16 18 Blood Pressure Blood Pressure [Le ft Arm] 149/77 H 169/77 H Blood Pressure [Ri ght Arm] Blood Pressure [or thostatic lying Ri ght Arm] Blood Pressure [or thostatic sitting Right Arm] Blood Pressure [or thostatic standing Right Arm] Pulse Oximetry 96 92 Oxygen Delivery Nm thod Room Air Room Air 08/28/24 09:23 08/28/24 10:18 08/28/24 11:25 Temperature 98.6 F Pulse Rate 73 Pulse Rate [Left A pical] Pulse Rate [Pulse Oximeter] 83 Pulse Rate [orthos tatic lying Apical ] 76 Pulse Rate [orthos tatic sitting Apic al] 84 Pulse Rate [orthos tatic standing Api alonso] 92 Respiratory Rate 18 Blood Pressure Blood Pressure [Le ft Arm] 179/93 H Blood Pressure [Ri ght Arm] Blood Pressure [or thostatic lying Ri ght Arm] 167/74 H Blood Pressure [or thostatic sitting Right Arm] 123/63 Blood Pressure [or thostatic standing Right Arm] 103/58 L Pulse Oximetry 94 Oxygen Delivery Me thod Room Air 08/28/24 12:00 08/28/24 15:25 08/28/24 15:26 Temperature 97.8 F Pulse Rate Pulse Rate [Left A pical] Pulse Rate [Pulse Oximeter] 69 69 Pulse Rate [orthos tatic lying Apical ] 70 Pulse Rate [orthos tatic sitting Apic al] 77 Pulse Rate [orthos tatic standing Api alonso] 95 Respiratory Rate 18 18 Blood Pressure Blood Pressure [Le ft Arm] 157/75 H Blood Pressure [Ri ght Arm] Blood Pressure [or thostatic lying Ri ght Arm] 156/72 H Blood Pressure [or thostatic sitting Right Arm] 139/72 Blood Pressure [or thostatic standing Right Arm] 117/72 Pulse Oximetry 95 Oxygen Delivery Me thod Room Air Labs Labs: Laboratory Results - last 24 hr 08/27/24 08/27/24 08/27/24 13:26 15:12 19:06 WBC RBC Hgb Hct MCV MCH MCHC Plt Count D-Dimer Quant (PE/DVT) 0.39 Sodium Potassium Chloride Carbon Dioxide Anion Gap BUN Creatinine Estimated Creat Clear Estimated GFR Glucose Calcium Magnesium C-Reactive Protein TSH 1.690 Urine Color Yellow Urine Appearance Clear Urine pH 5.5 Ur Specific [place] 1.010 Urine Protein Negative Urine Glucose (UA) Negative Urine Ketones 1+ A Urine Blood 3+ A Urine Nitrite Negative Urine Bilirubin Negative Urine Urobilinogen 0.2 Ur Leukocyte Esterase Trace A Urine RBC 0-2 Urine WBC 0-2 Ur Squamous Epith Cells None Amorphous Sediment Few A Urine Bacteria None Lab Acknowledgement Test Added 08/27/24 08/28/24 19:08 06:07 WBC 12.55 H RBC 4.62 Hgb 13.7 Hct 38.8 MCV 84 MCH 30 MCHC 35 Plt Count 281 D-Dimer Quant (PE/DVT) Sodium 132 L Potassium 3.8 Chloride 99 Carbon Dioxide 25 Anion Gap 8 BUN 19 Creatinine 0.9 Estimated Creat Clear 77.63 Estimated GFR 91 Glucose 123 H Calcium 8.6 Magnesium 2.0 C-Reactive Protein 3.7 H TSH Urine Color Urine Appearance Urine pH Ur Specific [place] Urine Protein Urine Glucose (UA) Urine Ketones Urine Blood Urine Nitrite Urine Bilirubin Urine Urobilinogen Ur Leukocyte Esterase Urine RBC Urine WBC Ur Squamous Epith Cells Amorphous Sediment Urine Bacteria Lab Acknowledgement Test Added 08/27/2024 EKG: Normal sinus rhythm, 77 beats per septal infarct, age undetermined. 08/28/2024 echocardiogram: Normal LV size, normal wall thickness, normal global systolic function with an estimated EF of 60-65%. Right ventricular cavity size is normal, global systolic RV function is normal. The mitral valve is sclerotic, trace mitral regurgitation.
--- NOTE | 2024-08-28 19:36 | PC.NURSE ---
End of Shift: Patient pleasant and cooperative, A&O. VSS, afebrile. SpO2 maintained above 90% on RA. Patient has a pandey cath in place that is patent and draining. Sliding scale insulin held per parameters this shift. 1A with walker and gait belt.
[2024-08-28] MEDS: METFORMIN ER 500 MG PO (21:31)
[2024-08-28] MEDS: ATORVASTATIN CALCIUM 40 MG TABLET PO (21:32)
[2024-08-29] VITALS (11 sets, daily range): BP systolic 157–192; BP diastolic 74–103; PULSE 68–93; RESP 18; TEMP 36.5–37; O2SAT 95–96
[2024-08-29] MEDS: SENNOSIDES/DOCUSATE TABLET 1 TAB PO (03:29)
[2024-08-29] MEDS: polyethylene glycoL 3350 17 GM PACK PO (03:29)
[2024-08-29] MEDS: dilTIAZem 30 MG TABLET PO ×4 (03:29→20:46)
[2024-08-29 04:38] LABS: Hematocrit 39.2 % (37.0-53.0); Hemoglobin* 13.7 gm/dL (13.5-17.5); Mean Corpuscular HGB Conc 35 gm/dL (32-36); Mean Corpuscular Hemoglobin 30 pg (26-34); Mean Corpuscular Volume 85 fL (80-100); Platelet Count* 264 K/uL (140-440); Red Blood Count 4.63 m/uL (4.30-5.90); White Blood Count* 11.18 K/uL (4.50-11.00)
[2024-08-29 04:41] LABS: Slide Review Reflex No
[2024-08-29 04:46] LABS: Chloride* 99 mmol/L (96-114)
[2024-08-29 04:47] LABS: Potassium* 3.7 mmol/L (3.6-5.1); Sodium* 132 mmol/L (135-149)
[2024-08-29 04:49] LABS: Anion Gap 7 mEq/L (7-15); Carbon Dioxide* 26 mmol/L (20-32); Creatinine* 0.7 mg/dL (0.5-1.5); Estimated Glomerular Filt Rate 98 ml/min
[2024-08-29 04:50] LABS: Blood Urea Nitrogen* 16 mg/dL (7-30); Calcium* 8.8 mg/dL (8.4-10.6); Glucose* 98 mg/dL (60-115)
[2024-08-29] MEDS: NICOTINE 2 MG GUM BUCCAL ×5 (06:02→21:59)
--- NOTE | 2024-08-29 07:39 | PC.NURSE ---
The patient is pleasant and cooperative with cares. VSS on RA, mild pain reported in his R lower extremity. Large clots visible 2x this shift.... irrigated 2x to push clot through. The patient would like to shower this AM. BG not requiring insulin. Call light within reach. Fragoso is patent and draining despite clots, updated was given to MD. Germania COLBERT BSN
[2024-08-29] MEDS: DIGOXIN 125 MCG TABLET PO (08:48)
[2024-08-29] MEDS: GABAPENTIN 100 MG CAPSULE PO ×3 (08:48→20:46)
[2024-08-29] MEDS: SODIUM CHLORIDE 0.9 % (FLUSH) 10 ML SYRINGE 5 ML IVF ×2 (08:49→20:47)
[2024-08-29] MEDS: METFORMIN ER 500 MG PO ×2 (08:49→20:46)
[2024-08-29] MEDS: glipiZIDE XL 5 MG TAB 10 MG PO (08:49)
[2024-08-29] MEDS: ACETAMINOPHEN 500 MG TABLET 1000 MG PO (11:30)
[2024-08-29] MEDS: INSULIN ASPART 100 UNIT/ML SUBCUT ×2 (13:08→20:45)
--- NOTE | 2024-08-29 13:50 | PC.NURSE ---
Spoke with Suresh's nephew Adrien with Suresh's permission, updated with status and plan of care.
--- NOTE | 2024-08-29 15:30 | PC.NURSE ---
End of Shift: Patient pleasant and cooperative, A&O. VSS, afebrile. SpO2 maintained above 90% on RA. CBI initiated this shift, 30cc into balloon. Patient reports pain in his right leg this shift, managed with PRN medication, see MAR. A1 with walker and gait belt. Tolerating regular diet. 1800 FR.
--- NOTE | 2024-08-29 16:45 | PM.IMPN1 ---
Progress Note: A&P Assessment and plan (1) Gross hematuria: Problem details: - has h/o bladder cancer - possible recent traumatic urinary catheter insertion - recently started on Eliquis, this was held this morning - I spoke with Dr. Finch from [facility] this morning regarding gross hematuria and clots overnight. He noted Suresh's history of bladder cancer for which he has a urologist at [place]. Dr. Finch recommended continues bladder irrigation and outpatient follow-up with his urologist. - CBI started this afternoon. Status: Acute (2) Atrial fibrillation with RVR: Problem details: -new onset AFib with RVR, converted 08/27/24 while on diltiazem and digoxin. Completed dig load. Continue oral diltiazem and oral digoxin. Check dig level in 1 week. ECHO as above. -started on Eliquis 08/27/24, a.m. dose held 08/29/24. Restart this evening -will need outpatient cardiology consult Status: Acute (3) Dizziness: Problem details: -also similar symptoms with previous CVA. No other focal findings. CT head obtained, acutely unremarkable -improved with conversion to NSR -initially suspected to be secondary to atrial fibrillation, likely paroxysmal over the last several days, possibly even in the past, however patient endorses that this was much worse in the last week and since starting new medications. Both oxycodone and especially Flomax can contribute to orthostatic hypotension. Stop Flomax. Gave IV fluid bolus 08/28. Recheck orthostatic blood pressures. Continue PT, discharged from OT. Anticipate likely be able to discharge home tomorrow if hematuria improves. - Will do cosyntropin challenge in am. Status: Acute (4) Acute hyponatremia: Problem details: -sodium 126, this has decreased from 130 over the past 48 hours -reports drinking more water in order to stay hydrated over the last couple of days -received NS IVF in the ED -sodium 132 today, stable, monitor, test for adrenal insufficiency. Status: Acute (5) Acute urinary retention: Problem details: -acute on chronic recurrent -UC from 08/22 and 08/26 unremarkable -discontinue Cipro as this may be contributing to dizziness -continue Pandey cares. Stopping Flomax secondary to orthostatic hypotension. Outpatient follow-up with Urology Status: Acute (6) Type 2 diabetes mellitus with peripheral neuropathy: Problem details: -most recent A1c 6.8 -continue glipizide, restart metformin -glucose checks within goal, continue checks ACHS, insulin sliding scale Status: Chronic (7) Hypertension: Problem details: -orthostatic hypotension in ED and on floor, as above under dizziness -holding home lisinopril and amlodipine in setting of managing new onset AFib with RVR Status: Chronic (8) Hyperlipidemia: Problem details: -continue statin and aspirin Status: Chronic (9) Chronic low back pain: Problem details: -with previous history of radiculopathy in the past. Doppler venous ultrasound negative for DVT -has done physical therapy -recently given oxycodone, which could be contributing to his dizziness as well -reports having an upcoming MRI scheduled. Further outpatient follow-up and management options Status: Acute (10) Bladder cancer: Problem details: -Diagnosed 2013 with nml PSA as of 08/2017 -history of urinary retention Status: Chronic (11) Leukocytosis: Problem details: -WBC 15.05 on admission, trending down, 11 today. Afebrile, no respiratory symptoms, UC x2 unremarkable, pandey cath placed yesterday 08/26 -stopped oral Cipro given for UTI as UC x2 unremarkable -BC NGTD, repeat UC NG. Could consider CXR if becomes symptomatic Status: Acute Time Spent With Patient Total time spent: Today I spent 70 minutes seeing the patient (I went back 2 more times to give him an update on plan and check how he was doing), discussing with urology, reviewing Expanse and EPIC notes/diagnostics/labs, discussing the care plan with our care team that includes social work, PT/OT, pharmacy, RT, long term and documenting my impressions and plan in the medical record. Subjective Time Seen by Provider: 08:17 Date Seen: 08/29/24 Interval history: Suresh had clots in his pandey last night. He notes his urine has been red since the catheter was reinserted in the ER a few days ago. He felt it was a traumatic insertion. He is otherwise well and denies CP or SOB. No fevers or chills. Dizziness has improved. Exam Narrative: Exam Narrative: General: No acute distress. Awake, alert, oriented x3. No pallor. No jaundice. Oropharynx: Clear. Mucous membranes moist. Cardiovascular: Regular rate and rhythm. No murmurs, gallops, or rubs. Respiratory: Clear to auscultation bilaterally. No wheezes or crackles. Abdomen: Bowel sounds present. Soft, nondistended, nontender. Urine: Gross hematuria, no clots at this time. Extremities: No lower extremity edema. No deformity. Nontender to palpation of left lower extremity. Const: Vital Signs, click to edit/add: Vital Signs - 24 hr 08/28/24 19:00 08/28/24 23:00 08/28/24 23:00 Temperature 98.2 F 99.1 F Pulse Rate 73 Pulse Rate [Pulse Oximeter] 82 75 Respiratory Rate 18 18 Blood Pressure [Le ft Arm] 163/76 H Blood Pressure [Ri ght Arm] 156/89 H Pulse Oximetry 96 93 Oxygen Delivery Me thod Room Air Room Air 08/29/24 03:00 08/29/24 03:30 08/29/24 07:35 Temperature 98.2 F 97.7 F Pulse Rate Pulse Rate [Pulse Oximeter] 76 69 Respiratory Rate 18 18 Blood Pressure [Le ft Arm] 192/103 H 189/83 H 173/79 H Blood Pressure [Ri ght Arm] Pulse Oximetry 95 96 Oxygen Delivery Me thod Room Air Room Air 08/29/24 07:35 08/29/24 08:48 08/29/24 10:29 Temperature Pulse Rate 68 83 Pulse Rate [Pulse Oximeter] Respiratory Rate 18 Blood Pressure [Le ft Arm] Blood Pressure [Ri ght Arm] Pulse Oximetry Oxygen Delivery Me thod 08/29/24 13:28 08/29/24 15:00 08/29/24 15:00 Temperature 98.3 F Pulse Rate 82 Pulse Rate [Pulse Oximeter] 80 82 Respiratory Rate 18 18 Blood Pressure [Le ft Arm] 160/79 H Blood Pressure [Ri ght Arm] Pulse Oximetry 96 Oxygen Delivery Me thod Room Air 08/29/24 15:00 Temperature 98.1 F Pulse Rate Pulse Rate [Pulse Oximeter] 71 Respiratory Rate 18 Blood Pressure [Le ft Arm] 180/83 H Blood Pressure [Ri ght Arm] Pulse Oximetry 95 Oxygen Delivery Me thod Room Air Labs Labs: Laboratory Results - last 24 hr 08/29/24 04:27 WBC 11.18 H RBC 4.63 Hgb 13.7 Hct 39.2 MCV 85 MCH 30 MCHC 35 Plt Count 264 Sodium 132 L Potassium 3.7 Chloride 99 Carbon Dioxide 26 Anion Gap 7 BUN 16 Creatinine 0.7 Estimated Creat Clear 75.70 Estimated GFR 98 Glucose 98 Calcium 8.8
[2024-08-29] MEDS: ATORVASTATIN CALCIUM 40 MG TABLET PO (20:46)
[2024-08-29] MEDS: APIXABAN 5 MG TABLET PO (20:46)
--- NOTE | 2024-08-29 22:21 | PC.NURSE ---
Shift note: CBI continue throughout this shift, light pink and clear. Attempted to slow the flow, fluids tuns dark pink/red, flow increased back up. Couple large ( dime size) clots suctioned out of catheter, aware to let the staff know if pressure in bladder increases. 3 BMs this evening.
[2024-08-30] VITALS (9 sets, daily range): BP systolic 127–172; BP diastolic 71–91; PULSE 76–116; RESP 16–20; TEMP 36.6–37; O2SAT 95–97
[2024-08-30] MEDS: dilTIAZem 30 MG TABLET PO ×4 (03:08→22:01)
--- NOTE | 2024-08-30 05:25 | PC.NURSE ---
[id number] Pt continues on CBI at this time, at beginning of shift pink tinged urine output, approx 0230, became pale yellow and has remained clear pale yellow since, no clots noted, did not need to flush pandey due to clotting during shift. will clamp CBI and monitor pt. pt denies pain. Pt slept in bed during shift so denies lightheaded or dizziness.
[2024-08-30] MEDS: SODIUM CHLORIDE 0.9 % (FLUSH) 10 ML SYRINGE 5 ML IVF ×3 (05:59→21:36)
[2024-08-30] MEDS: COSYNTROPIN 0.25 MG VIAL IVP (05:59)
[2024-08-30 06:09] LABS: Hematocrit 39.3 % (37.0-53.0); Hemoglobin* 13.9 gm/dL (13.5-17.5); Mean Corpuscular HGB Conc 35 gm/dL (32-36); Mean Corpuscular Hemoglobin 30 pg (26-34); Mean Corpuscular Volume 84 fL (80-100); Platelet Count* 270 K/uL (140-440); Red Blood Count 4.68 m/uL (4.30-5.90); White Blood Count* 12.52 K/uL (4.50-11.00)
[2024-08-30 06:19] LABS: Slide Review Reflex No
[2024-08-30 06:21] LABS: Chloride* 99 mmol/L (96-114); Potassium* 3.8 mmol/L (3.6-5.1); Sodium* 133 mmol/L (135-149)
[2024-08-30 06:24] LABS: Anion Gap 7 mEq/L (7-15); Blood Urea Nitrogen* 17 mg/dL (7-30); Carbon Dioxide* 27 mmol/L (20-32); Creatinine* 0.7 mg/dL (0.5-1.5); Estimated Glomerular Filt Rate 98 ml/min; Glucose* 131 mg/dL (60-115)
[2024-08-30 06:25] LABS: Calcium* 9.3 mg/dL (8.4-10.6)
[2024-08-30] MEDS: INSULIN ASPART 100 UNIT/ML SUBCUT ×3 (08:26→17:00)
[2024-08-30] MEDS: DIGOXIN 125 MCG TABLET PO (08:28)
[2024-08-30] MEDS: METFORMIN ER 500 MG PO ×2 (08:28→21:34)
[2024-08-30] MEDS: NICOTINE 2 MG GUM BUCCAL ×5 (08:28→21:34)
[2024-08-30] MEDS: glipiZIDE XL 5 MG TAB 10 MG PO (08:29)
[2024-08-30] MEDS: APIXABAN 5 MG TABLET PO (08:29)
[2024-08-30] MEDS: GABAPENTIN 100 MG CAPSULE PO ×3 (08:29→21:35)
--- NOTE | 2024-08-30 15:08 | PC.NURSE ---
End of Shift: Patient pleasant and cooperative, A&O. VSS, afebrile. SpO2 maintained above 90% on RA.?CBI this shift was ended at 1020, clear pale yellow urine was flowing until about 1330 when he was working with therapy, there was some bright red blood in the pandey bag, notified. Tolerating regular diet. 1A with walker and gait belt. ?
--- NOTE | 2024-08-30 18:33 | PM.IMPN1 ---
Progress Note: A&P Assessment and plan (1) Gross hematuria: Problem details: - has h/o bladder cancer - possible recent traumatic urinary catheter insertion - 08/29 recently started on Eliquis, this was held this morning. I spoke with Dr. Finch from [facility] this morning regarding gross hematuria and clots overnight. He noted Suresh's history of bladder cancer for which he has a urologist at [place]. Dr. Finch recommended continues bladder irrigation and outpatient follow-up with his urologist. CBI started this afternoon. - 08/30 ongoing hematuria, but no clots. Stop CBI. Continue to hold Eliquis. Patient has appointment for urology in about a week. If no clots tonight, d/c home tomorrow, holding Eliquis, urology f/u. Status: Acute (2) Atrial fibrillation with RVR: Problem details: -new onset AFib with RVR, converted 08/27/24 while on diltiazem and digoxin. Completed dig load. Continue oral diltiazem and oral digoxin. Check dig level in 1 week. ECHO as above. -started on Eliquis 08/27/24, a.m. Held now for hematuria. Will need definitive diagnosis and treatment of gross hematuria, urology appt 09/07, hold Eliquis until then. -will need outpatient cardiology consult Status: Acute (3) Dizziness: Problem details: -also similar symptoms with previous CVA. No other focal findings. CT head obtained, acutely unremarkable -improved with conversion to NSR -initially suspected to be secondary to atrial fibrillation, likely paroxysmal over the last several days, possibly even in the past, however patient endorses that this was much worse in the last week and since starting new medications. Both oxycodone and especially Flomax can contribute to orthostatic hypotension. Stop Flomax. Gave IV fluid bolus 08/28. Recheck orthostatic blood pressures. Continue PT, discharged from OT. Anticipate likely be able to discharge home tomorrow if hematuria improves. -Cosyntropin challenge 08/30 am, cortisol levels sent out. -08/30 appears to be back to baseline after stopping flomax Status: Acute (4) Acute hyponatremia: Problem details: -sodium 126, this has decreased from 130 over the past 48 hours -reports drinking more water in order to stay hydrated over the last couple of days -received NS IVF in the ED -sodium 133 today, stable, monitor, test for adrenal insufficiency pending. Status: Acute (5) Acute urinary retention: Problem details: -acute on chronic recurrent -UC from 08/22 and 08/26 unremarkable -discontinue Cipro as this may be contributing to dizziness -continue Pandey cares. Stopping Flomax secondary to orthostatic hypotension. Outpatient follow-up with Urology Status: Acute (6) Type 2 diabetes mellitus with peripheral neuropathy: Problem details: -most recent A1c 6.8 -continue glipizide, restart metformin -glucose checks within goal, continue checks ACHS, insulin sliding scale Status: Chronic (7) Hypertension: Problem details: -orthostatic hypotension in ED and on floor, as above under dizziness -holding home lisinopril and amlodipine in setting of managing new onset AFib with RVR Status: Chronic (8) Hyperlipidemia: Problem details: -continue statin Status: Chronic (9) Chronic low back pain: Problem details: -with previous history of radiculopathy in the past. Doppler venous ultrasound negative for DVT -has done physical therapy -recently given oxycodone, which could be contributing to his dizziness as well -reports having an upcoming MRI scheduled. Further outpatient follow-up and management options Status: Acute (10) Bladder cancer: Problem details: -Diagnosed 2013 with nml PSA as of 08/2017 -history of urinary retention Status: Chronic (11) Leukocytosis: Problem details: -WBC 15.05 on admission, trending down. Afebrile, no respiratory symptoms, UC x2 unremarkable, pandey cath placed 08/26 -stopped oral Cipro given for UTI as UC x2 unremarkable -BC NGTD, repeat UC NG. Could consider CXR if becomes symptomatic Status: Acute Time Spent With Patient Total time spent: Today I spent 50minutes total seeing the patient three separate times during the day to reevaluate and update patient on plan of care, reviewing [facility] and EPIC notes/diagnostics/labs, discussing the care plan with our care team that includes pharmacy, snf and documenting my impressions and plan in the medical record. Subjective Time Seen by Provider: 09:37 Date Seen: 08/30/24 Interval history: Suresh feels well. He continues to have hematuria despite continuous irrigation, but there has been no further clotting. He has an appointment with a urologist in [place] on Sep 07. Discussed risk of ongoing bleeding or clots and risk of stroke without anticoagulation. Exam Narrative: Exam Narrative: General: No acute distress. Awake, alert, oriented x3. No pallor. No jaundice. Oropharynx: Clear. Mucous membranes moist. Cardiovascular: Regular rate and rhythm. No murmurs, gallops, or rubs. Respiratory: Clear to auscultation bilaterally. No wheezes or crackles. Abdomen: Bowel sounds present. Soft, nondistended, nontender. Urine: Gross hematuria, no clots. Extremities: No lower extremity edema. Const: Vital Signs, click to edit/add: Vital Signs - 24 hr 08/29/24 23:00 08/29/24 23:16 08/30/24 03:00 Temperature 98.6 F 98.6 F Pulse Rate 77 Pulse Rate [Pulse Oximeter] 85 83 Respiratory Rate 18 16 Blood Pressure [Le ft Arm] 176/94 H Blood Pressure [Ri ght Arm] 172/80 H Pulse Oximetry 96 97 [facility] Room [facility] Room Air 08/30/24 08:15 08/30/24 08:15 08/30/24 08:28 Temperature 98.1 F Pulse Rate 81 Pulse Rate [Pulse Oximeter] 81 81 Respiratory Rate 18 18 Blood Pressure [Le ft Arm] 168/91 H Blood Pressure [Ri ght Arm] Pulse Oximetry 95 Oxygen Delivery [facility] Room Air 08/30/24 09:20 08/30/24 11:39 08/30/24 15:00 Temperature 97.9 F Pulse Rate 76 84 Pulse Rate [Pulse Oximeter] 82 Respiratory Rate 18 Blood Pressure [Le ft Arm] 164/88 H Blood Pressure [Ri ght Arm] Pulse Oximetry 95 Oxygen Delivery [facility] Room Air 08/30/24 15:00 08/30/24 15:00 Temperature 98 F Pulse Rate Pulse Rate [Pulse Oximeter] 84 84 Respiratory Rate 18 16 Blood Pressure [Le ft Arm] Blood Pressure [Ri ght Arm] 147/91 H Pulse Oximetry 95 Oxygen Delivery [facility] Room Air Labs Labs: Laboratory Results - last 24 hr 08/30/24 08/30/24 08/30/24 04:00 05:58 06:28 WBC 12.52 H RBC 4.68 Hgb 13.9 Hct 39.3 MCV 84 MCH 30 MCHC 35 Plt Count 270 Sodium 133 L Potassium 3.8 Chloride 99 Carbon Dioxide 27 Anion Gap 7 BUN 17 Creatinine 0.7 Estimated Creat Clear 75.70 Estimated GFR 98 Glucose 131 H Calcium 9.3 Cortisol Cancelled Cancelled
[2024-08-30] MEDS: ATORVASTATIN CALCIUM 40 MG TABLET PO (21:35)
--- NOTE | 2024-08-30 22:40 | PC.NURSE ---
Shift note: Bright pink urine drainage in catheter. Continuously draining, no obstructions in flow during this shift.
[2024-08-31 03:00] VITALS: BP 163/82; PULSE 75; RESP 20; TEMP 36.1; O2SAT 97
[2024-08-31] MEDS: dilTIAZem 30 MG TABLET PO ×3 (03:24→15:06)
[2024-08-31] MEDS: ACETAMINOPHEN 500 MG TABLET 1000 MG PO (04:17)
--- NOTE | 2024-08-31 04:43 | PC.NURSE ---
Shift note: Patient is alert and oriented and cooperate with treatment and care. Urine is nair red color but no clot. At 0430, he reported mild pain to the feet and Tylenol was effective in pain relieving. Bp has been elevated with the systolic >160. Patient had adequate sleep. He has been in bed throughout the shift.
[2024-08-31 06:36] LABS: Hemoglobin* 13.3 gm/dL (13.5-17.5); Mean Corpuscular HGB Conc 35 gm/dL (32-36); Mean Corpuscular Hemoglobin 30 pg (26-34); Mean Corpuscular Volume 84 fL (80-100); Platelet Count* 301 K/uL (140-440); White Blood Count* 14.19 K/uL (4.50-11.00)
[2024-08-31 06:46] LABS: Slide Review Reflex No
[2024-08-31 06:53] LABS: Chloride* 99 mmol/L (96-114); Potassium* 3.8 mmol/L (3.6-5.1); Sodium* 132 mmol/L (135-149)
[2024-08-31 06:56] LABS: Anion Gap 7 mEq/L (7-15); Blood Urea Nitrogen* 21 mg/dL (7-30); Calcium* 9.2 mg/dL (8.4-10.6); Carbon Dioxide* 26 mmol/L (20-32); Creatinine* 0.8 mg/dL (0.5-1.5); Est. Creatinine Clearance* 72.93; Estimated Glomerular Filt Rate 94 ml/min; Glucose* 124 mg/dL (60-115)
[2024-08-31] MEDS: glipiZIDE XL 5 MG TAB 10 MG PO (08:54)
[2024-08-31] MEDS: METFORMIN ER 500 MG PO (08:54)
[2024-08-31 08:56] VITALS: PULSE 78
[2024-08-31] MEDS: DIGOXIN 125 MCG TABLET PO (08:56)
[2024-08-31] MEDS: GABAPENTIN 100 MG CAPSULE PO ×2 (08:56→15:06)
[2024-08-31] MEDS: NICOTINE 2 MG GUM BUCCAL ×2 (09:13→14:08)
[2024-08-31 09:28] VITALS: PULSE 79
[2024-08-31 09:39] VITALS: BP 169/70; PULSE 78; RESP 16; TEMP 36.6; O2SAT 94
[2024-08-31 11:17] VITALS: BP 142/97; PULSE 78; RESP 16; TEMP 36.6; O2SAT 95
--- NOTE | 2024-08-31 11:59 | P.DS_ITS ---
DS: Providers Provider Time Seen by Provider: 10:20 Date Seen: 08/31/24 Date of admission: 08/27/24 19:06 Primary care physician: Santi Juarez MD Admitting Clinician: Gris Simon MD Consults: 08/28/24 10:14 Consult to Occupational Therapy [CONS] Routine Comment: Reason(s) for OT Consult:: Evaluate and Treat Any Restrictions?:: No Restrictions Consult to Physical Therapy [CONS] Routine Comment: Reason(s) for PT Consult:: Balance Assessment Any Restrictions?:: No Restrictions Attending Physician on discharge: Radhika Juarez MD Date of Discharge: 08/31/24 DS: Diagnosis Discharge Diagnosis (1) Atrial fibrillation with RVR: Status: Acute Problem details: -new onset AFib with RVR, converted 08/27/24 while on diltiazem and digoxin. Completed dig load. Continue oral diltiazem and oral digoxin. Check dig level in 1 week. ECHO as above. -started on Eliquis 08/27/24, a.m. Held now for hematuria. Will need definitive diagnosis and treatment of gross hematuria, urology appt 09/07, hold Eliquis until then. -will need outpatient cardiology consult - Digoxin level 08/31/24 was 0.4. (2) Dizziness: Status: Acute Problem details: -also similar symptoms with previous CVA. No other focal findings. CT head obtained, acutely unremarkable -improved with conversion to NSR -initially suspected to be secondary to atrial fibrillation, likely paroxysmal over the last several days, possibly even in the past, however patient endorses that this was much worse in the last week and since starting new medications. Both oxycodone and especially Flomax can contribute to orthostatic hypotension. Stop Flomax. Gave IV fluid bolus 08/28. Recheck orthostatic blood pressures. Continue PT, discharged from OT. Anticipate likely be able to discharge home t omorrow if hematuria improves. -Cosyntropin challenge 08/30 am, cortisol levels sent out. -08/30 appears to be back to baseline after stopping flomax. Patient endorsed orthostatic symptoms going on for several months; may benefit from further w/u as outpatient if these have not fully resolved. Also note that Cortisol levels from cosyntropin challenge on 08/30/24 are pending. (3) Gross hematuria: Status: Acute Problem details: - has h/o bladder cancer - possible recent traumatic urinary catheter insertion - 08/29 recently started on Eliquis, this was held this morning. I spoke with Dr. Finch from [facility] this morning regarding gross hematuria and clots overnight. He noted Suresh's history of bladder cancer for which he has a urologist at [place]. Dr. Finch recommended continues bladder irrigation and outpatient follow-up with his urologist. CBI started this afternoon. - 08/30 ongoing hematuria, but no clots. Stop CBI. Continue to hold Eliquis. Patient has appointment for urology in about a week. If no clots tonight, d/c home tomorrow, holding Eliquis, urology f/u. - 08/31 ongoing hematuria overnight, no clotting, Hgb stable at 13.3. Eliquis still on hold. Patient aware this will be on hold until he sees urologist. I spoke with his PCP, Dr. Juarez, over the phone today to let him know that i would not prescribe Eliquis so that he would not accidentally take it before seeing urology, but that it would need to be prescribed after that. (4) Acute urinary retention: Status: Acute Problem details: -acute on chronic recurrent -UC from 08/22 and 08/26 unremarkable -discontinue Cipro as this may be contributing to dizziness -continue Pandey cares. Stopped Flomax secondary to orthostatic hypotension. Outpatient follow-up with Urology (5) Bladder cancer: Status: Chronic Problem details: -Diagnosed 2013 with nml PSA as of 08/2017 -history of urinary retention (6) Acute hyponatremia: Status: Acute Problem details: -sodium 126, this has decreased from 130 over the past 48 hours -reports drinking more water in order to stay hydrated over the last couple of days -received NS IVF in the ED -sodium 133 today, monitor, test for adrenal insufficiency pending. (7) Leukocytosis: Status: Acute Problem details: -WBC 15.05 on admission, variable, but peristent. Afebrile, no respiratory symptoms, UC x2 unremarkable, pandey cath placed 08/26 -stopped oral Cipro given for UTI as UC x2 unremarkable -BC NGTD, repeat UC NG. - recheck as outpatient, may need peripheral smear/further work up. (8) Type 2 diabetes mellitus with peripheral neuropathy: Status: Chronic Problem details: -most recent A1c 6.8 -continue glipizide, restart metformin -glucose checks within goal (9) Hypertension: Status: Chronic Problem details: -orthostatic hypotension in ED and on floor, as above under dizziness -held home lisinopril and amlodipine in setting of managing new onset AFib with RVR, BPs elevated. Restart these upon homegoing. (10) Hyperlipidemia: Status: Chronic Problem details: -continue statin (11) Chronic low back pain: Status: Acute Problem details: -with previous history of radiculopathy in the past. Doppler venous ultrasound negative for DVT -has done physical therapy -recently given oxycodone, which could be contributing to his dizziness as well, stop this medication -Further outpatient follow-up and management options (12) Chronic hyponatremia: Status: Chronic Problem details: - stable DS: Summary Hospital Course Hospital Course: Per H&P: Suresh Martinez is a 74 year old male past medical history significant for type 2 diabetes mellitus, hypertension, hyperlipidemia, chronic low back pain, previous CVA July 2020, bladder cancer 2013 is admitted to the medical floor from the ED for further management new onset AFib with RVR, hyponatremia. Patient has been in our ED multiple times in the new year, August 13 and for low back pain radiating down his right leg. He was in in the ED on the and the with urinary retention and currently has an indwelling Pandey catheter in place. He returns to the ED today with complaint of dizziness. He 1st noticed this episode of dizziness around 2:00 a.m. when he awoke to empty his Pandey catheter bag. He has had some ongoing lightheadedness, specifically when going from sitting to standing. He was noted to have a drop in his blood pressure in the ED as well as on arrival to the floor. He denies headache. Denies chest pain or shortness of breath. No recent cough. No recent fevers or chills. Has not had recent vomiting or diarrhea. He has had previous episodes of dizzy spells. He had a CVA in 2019 and at that time his symptoms were unsteadiness on his feet as well as lightheadedness. CTA of the head neck showed severe stenosis with immediate vascular surgery intervention. He continues to complain of right lower extremity pain. He is scheduled for an MRI of that extremity as well. In the ED, patient was found to be tachycardic, atrial fibrillation with RVR. He was given a few doses of diltiazem to which he was not responding. ED provider did discuss with Cardiology who recommended Q 6 hour dosing of metoprolol as well as loading with digoxin followed by 2 more doses of digoxin q.6 hours. On arrival to the floor, heart rate remains 130-150s. He denies feeling his heart racing nor palpitations. Afib converted 08/27. ECHO okay. Started Eliquis for stroke prevention, after which gross hematuria and clots were noted. He has h/o bladder ca. Eliquis held. CBI started and able to be stopped next day. No further clotting. Hgb stable. Patient was comfortable with larger 3 way catheter and hesitant to have it changed for fear of traumatic reinsertion. He is discharged home in stable condition today. Please see diagnoses above for full details. Time Spent with Patient Time attestation: Total time spent providing and/or coordinating discharge services: Today I spe nt 60 minutes seeing the patient, discussing care with the patient and later on the phone with his sister, Debbie, reviewing Expanse and EPIC notes/diagnostics/labs, discussing the care plan with our care team that includes social work, PT/OT, pharmacy, RT, longterm and documenting my impressions and plan in the medical record. Exam Narrative: Exam Narrative: General: No acute distress. Awake, alert, oriented x3. No pallor. No jaundice. Oropharynx: Clear. Mucous membranes moist. Cardiovascular: Regular rate and rhythm. No murmurs, gallops, or rubs. Respiratory: Clear to auscultation bilaterally. No wheezes or crackles. Abdomen: Bowel sounds present. Soft, nondistended, nontender. Urine: Gross hematuria, no clots. Extremities: No lower extremity edema. Const: Vital Signs, click to edit/add: Vital Signs - 24 hr 08/30/24 15:00 08/30/24 15:00 08/30/24 15:00 Temperature 98 F Pulse Rate 84 Pulse Rate [Pulse Oximeter] 84 84 Pulse Rate [orthos tatic lying Apical ] Pulse Rate [orthos tatic standing Api alonso] Respiratory Rate 18 16 Blood Pressure [Le ft Arm] Blood Pressure [Ri ght Arm] 147/91 H Blood Pressure [or thostatic lying Ri ght Arm] Blood Pressure [or thostatic standing Right Arm] Pulse Oximetry 95 Oxygen Delivery La thod Room Air 08/30/24 18:00 08/30/24 19:00 08/30/24 23:00 Temperature Pulse Rate Pulse Rate [Pulse Oximeter] 92 78 Pulse Rate [orthos tatic lying Apical ] 116 H Pulse Rate [orthos tatic standing Api alonso] 92 Respiratory Rate 20 20 Blood Pressure [Le ft Arm] Blood Pressure [Ri ght Arm] 144/87 H Blood Pressure [or thostatic lying Ri ght Arm] 127/71 Blood Pressure [or thostatic standing Right Arm] 144/87 H Pulse Oximetry [facility] 08/30/24 23:00 08/30/24 23:00 08/31/24 03:00 Temperature 97.9 F 97 F L Pulse Rate 76 Pulse Rate [Pulse Oximeter] 78 75 Pulse Rate [orthos tatic lying Apical ] Pulse Rate [orthos tatic standing Api alonso] Respiratory Rate 20 20 Blood Pressure [Le ft Arm] Blood Pressure [Ri ght Arm] 166/89 H 163/82 H Blood Pressure [or thostatic lying Ri ght Arm] Blood Pressure [or thostatic standing Right Arm] Pulse Oximetry 96 97 [facility] Air 08/31/24 08:56 08/31/24 09:28 08/31/24 09:39 Temperature 97.8 F Pulse Rate 78 79 Pulse Rate [Pulse Oximeter] 78 Pulse Rate [orthos tatic lying Apical ] Pulse Rate [orthos tatic standing Api alonso] Respiratory Rate 16 Blood Pressure [Le ft Arm] Blood Pressure [Ri ght Arm] 169/70 H Blood Pressure [or thostatic lying Ri ght Arm] Blood Pressure [or thostatic standing Right Arm] Pulse Oximetry 94 Oxygen Delivery La thod Room Air 08/31/24 11:17 Temperature 97.8 F Pulse Rate Pulse Rate [Pulse Oximeter] 78 Pulse Rate [orthos tatic lying Apical ] Pulse Rate [orthos tatic standing Api alonso] Respiratory Rate 16 Blood Pressure [Le ft Arm] 142/97 H Blood Pressure [Ri ght Arm] Blood Pressure [or thostatic lying Ri ght Arm] Blood Pressure [or thostatic standing Right Arm] Pulse Oximetry 95 Oxygen Delivery Me thod Room Air DS: Data Data Completed and Pending Completed studies during hospitalization: Cortisol levels from cosyntropin challenge on 08/30/24 are pending. 08/27/2024 EKG: Normal sinus rhythm, 74 beats per minute, normal EKG. 08/27/2024 EKG: Normal sinus rhythm, 77 beats per minute, septal infarct, age undetermined. 08/27/2024 EKG: Sinus tachycardia with occasional premature ventricular complexes, 159 beats per minute, septal infarct, age undetermined. 08/28/2024 EKG: Atrial fibrillation, 171 beats per minute, septal infarct, age undetermined. 08/28/2024 echocardiogram: Normal LV size, normal wall thickness, normal global systolic function with an estimated EF of 60-65%. Right ventricular cavity size is normal, global systolic RV function is normal. Mitral valve is sclerotic, trace mitral regurgitation. Ordering Physician: Gris Simon M.D. Date of Service: 08/27/24 Procedure(s): CT head/brain wo [facility] Accession Number(s): [id number] cc: Santi Juarez M.D.; Gris Simon M.D.~ For Patients: As a result of the 21st Century Cures Act, medical imaging exams and procedure reports are released immediately into your electronic medical record. You may view this report before your referring provider. If you have questions, please contact your health care provider. INDICATION: Dizziness. TECHNIQUE: CT head without contrast. COMPARISON: MRI brain 10/23/2022. FINDINGS: CSF spaces: Proportionate prominence of the ventricles and sulci, reflecting mild generalized cerebral volume loss. Brain parenchyma: Chronic lacunar infarct right basal ganglia, unchanged. The padgett-white differentiation is otherwise maintained. Patchy white matter low attenuation changes, nonspecific but likely reflecting chronic small vessel ischemic disease. No sign of mass, hemorrhage, or midline shift. Skull base and calvarium: The visualized paranasal sinuses and mastoid air cells demonstrate no acute or significant findings. Bilateral cataract extraction. No skull fractures. IMPRESSION: No acute intracranial abnormality. Please note that all CT scans at this facility use dose modulation, iterative reconstruction, and/or weight-based dosing when appropriate to reduce radiation dose to as low as reasonably achievable. Dictated by Cesar Davis MD @ 08/27/2024 9:13:43 PM (Electronically Signed) Ordering Physician: Naila Huang M.D. Date of Service: 08/27/24 Procedure(s): XR lumbar spine 2-3V Accession Number(s): [id number] cc: Santi Juarez M.D.; Naila Huang M.D.~ For Patients: As a result of the Cures Act, medical imaging exams and procedure reports are released immediately into your electronic medical record. You may view this report before your referring provider. If you have questions, please contact your health care provider. INDICATION: Right L4/L5 radiculopathy. TECHNIQUE: Lumbar spine 3 views. COMPARISON: None. FINDINGS: Bones: Straightening of the lumbar lordosis. Vertebral body heights are maintained. No acute displaced fracture. Joints: Mild multilevel disc space narrowing. Mild lower lumbar facet arthropathy. Mild bony foraminal narrowing at L5-S1. Soft tissues: Aortic atherosclerotic calcifications. Dictated by Cesar Davis MD @ 08/27/2024 4:00:30 AM (Electronically Signed) Ordering Physician: Stefanie FRIEDMAN Date of Service: 08/27/24 Procedure(s): US venous LE BI Accession Number(s): [id number] cc: Santi Juarez M.D.; Stefanie FRIEDMAN~ For Patients: As a result of the Cures Act, medical imaging exams and procedure reports are released immediately into your electronic medical record. You may view this report before your referring provider. If you have questions, please contact your health care provider. INDICATION: Leg pain and swelling. TECHNIQUE: Ultrasound venous duplex bilateral lower extremity. Compression venous exam was performed using padgett-scale, color Doppler, and spectral Doppler analysis. COMPARISON: Lower extremity ultrasound August 20 FINDINGS: Deep veins: Sonographic imaging demonstrates bilateral common femoral, deep femoral, superficial femoral, popliteal, posterior tibial veins to be fully compressible with normal color Doppler blood flow. Superficial veins: Greater saphenous vein is fully compressible. IMPRESSION: Normal bilateral lower extremity venous ultrasound, no sign of deep venous thrombosis. Dictated by Jerrell Handy MD @ 08/27/2024 8:34:55 PM (Electronically Signed) Ordering Physician: Stefanie FRIEDMAN Date of Service: 08/27/24 Procedure(s): CT angio head Accession Number(s): [id number] cc: Santi Juarez M.D.; Stefanie FRIEDMAN~ For Patients: As a result of the Cures Act, medical imaging exams and procedure reports are released immediately into your electronic medical record. You may view this report before your referring provider. If you have questions, please contact your health care provider. INDICATION: Dizziness. TECHNIQUE: CTA head with contrast bolus tracking, 3D angiographic rendering using maximum intensity projection (MIP) and images permanently archived. Comparison: 10/23/2022. FINDINGS: There is scattered intracranial atherosclerotic disease. There is a focal severe stenosis of the intracranial left vertebral artery. There is otherwise normal opacification of the intracranial vasculature. There is no large vessel occlusion. No aneurysm is identified. 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 Please note that all CT scans at this facility use dose modulation, iterative reconstruction, and/or weight-based dosing when appropriate to reduce radiation dose to as low as reasonably achievable. Dictated by Freddy Ball MD @ 08/28/2024 7:37:06 AM (Electronically Signed) Ordering Physician: Stefanie FRIEDMAN Date of Service: 08/27/24 Procedure(s): CT angio neck Accession Number(s): [id number] cc: Santi Juarez M.D.; Stefanie FRIEDMAN~ For Patients: As a result of the Cures Act, medical imaging exams and procedure reports are released immediately into your electronic medical record. You may view this report before your referring provider. If you have questions, please contact your health care provider. INDICATION: Dizziness. TECHNIQUE: CTA neck with contrast bolus tracking, 3D angiographic rendering using maximum intensity projection (MIP) and images permanently archived. Comparison: 10/23/2022. FINDINGS: There are postoperative findings of a right carotid endarterectomy without residual or recurrent stenosis. There is left carotid atherosclerosis without significant stenosis. There is scattered vertebral atherosclerosis with moderate bilateral vertebral artery origin stenoses, unchanged. There is no evidence for dissection. The soft tissues of the neck are within normal limits. The cervical spine is in normal alignment. IMPRESSION: 1. Right CEA without residual or recurrent stenosis. 2. Left carotid atherosclerosis without significant stenosis. 3. Moderate bilateral vertebral artery origin stenoses, unchanged. Please note that all CT scans at this facility use dose modulation, iterative reconstruction, and/or weight-based dosing when appropriate to reduce radiation dose to as low as reasonably achievable. Dictated by Freddy Ball MD @ 08/28/2024 7:40:11 AM (Electronically Signed) Labs on day of discharge: Labs from last 24 hours 08/31/24 06:18 WBC 14.19 H RBC 4.50 Hgb 13.3 L Hct 38.0 MCV 84 MCH 30 MCHC 35 Plt Count 301 Sodium 132 L Potassium 3.8 Chloride 99 Carbon Dioxide 26 Anion Gap 7 BUN 21 Creatinine 0.8 Estimated Creat Clear 72.93 Estimated GFR 94 Glucose 124 H Calcium 9.2 Preliminary micro results at discharge 08/27/24 18:33 Blood Culture - Preliminary Blood NO GROWTH AFTER 72 HOURS Discharge Plan Discharge Disposition: Home, Self-Care Date of Admission: 08/27/24 19:06 Attending Provider on Discharge: Radhika Juarez Primary Care Provider: Santi Juarez Condition: Stable Anticipated Discharge Date/Time: 08/31/24 12:01 Discharge Medications: New digoxin 125 mcg (0.125 mg) Tablet 125 mcg PO DAILY Qty: 30 0RF diltiazem HCl 60 mg capsule,extended release 12 hr 60 mg PO BID Qty: 60 2RF Continued epinephrine 0.3 mg/0.3 mL auto-injector 0.3 ml IM .As Needed as needed PRN (Reason: anaphylaxis) Qty: 2 0RF gabapentin 100 mg capsule 100 mg PO TID Qty: 30 2RF metformin 500 mg tablet extended release 24 hr 500 mg PO BID glipizide 10 mg tablet extended release 24hr 10 mg PO DAILY lisinopril 10 mg tablet 10 mg PO DAILY atorvastatin 40 mg tablet 40 mg PO HS oxycodone 5 mg tablet 5 mg PO QID PRN Held amlodipine 10 mg tablet 10 mg PO DAILY Hold Instructions: Resume on 09/09/24. Hold until you see your PCP for BP recheck Discontinued aspirin 81 mg tablet,chewable 81 mg PO DAILY ciprofloxacin HCl 250 mg tablet 250 mg PO BID Qty: 10 0RF chlorthalidone 25 mg tablet 12.5 mg PO QAM cyclobenzaprine 10 mg tablet 10 mg PO TID PRN Discharge Orders: Discharge Order (Routine); Ordered 08/31/24 Ordered By: Radhika Juarez Additional Instructions: - Reschedule appointment with Ortho (was on 08/28/24 at 8:45am) - Ann next week or Sat with CBC and BMP - Cardiology in 2 weeks for new afib - Urology in 1-2 weeks for urinary retention (Dr. Shoemaker @ [place]), pandey in place Activity Level: Use Walker Discharge Diet: Regular Follow Up Appointments: Santi Juarez MD [Primary Care Provider] - Forms: MyHealth Info Instructions
[2024-08-31 13:34] LABS: Digoxin* 0.4 ng/mL (0.8-2.0)
--- NOTE | 2024-08-31 16:08 | PC.NURSE ---
Discharge - Pt alert, oriented, cooperative. Up with standby assistance, tolerating RA and regular diet. Able to efficiently manage Fragoso catheter tubing and bag. Hematuria noted in catheter bag, no clots noted during shift. Pt reported concern regarding reddened skin on penis, RN visually examined and made MD aware. No orders given, education provided to pt regarding worsening condition. Pt denied pain and SOB. IV catheter x2 removed with catheter intact. Discharge education given with pt reporting understanding. D/C'd to home via wheelchair with family member at approximately 1529.
[2024-09-02 03:07] LABS: Cortisol 0 Min 15.3 ug/dL
== END 2024-08-31 15:29 | disposition home or self-care (01) | DRG 309 ==
LOC: ED 16:30 → MEDSURG 16:59
PROVIDERS: Family Medicine; Admitting Provider Physician Assistant; Emergency Provider Student in an Organized Health Care Education/Training Program; PCP Family Medicine; Visit Provider Family Medicine
DX: I48.91 Unspecified atrial fibrillation (principal); E87.1 Hypo-osmolality and hyponatremia; N39.0 Urinary tract infection, site not specified; R31.0 Gross hematuria; R42 Dizziness and giddiness; R33.9 Retention of urine, unspecified; E11.21 Type 2 diabetes mellitus with diabetic nephropathy; Z79.84 Long term (current) use of oral hypoglycemic drugs; I10 Essential (primary) hypertension; E78.5 Hyperlipidemia, unspecified; Z85.51 Personal history of malignant neoplasm of bladder; D72.829 Elevated white blood cell count, unspecified; M54.9 Dorsalgia, unspecified; G89.29 Other chronic pain; Z86.73 Personal history of transient ischemic attack (TIA), and cerebral infarction without residual deficits; E11.42 Type 2 diabetes mellitus with diabetic polyneuropathy; Z12.5 Encounter for screening for malignant neoplasm of prostate; E87.6 Hypokalemia; M54.16 Radiculopathy, lumbar region
CPT/HCPCS: 36415; 51702; 70450; 70496; 70498; 72100; 80048; 80053; 80061; 80162; 81001; 82043; 82533; 82570; 82962; 83036; 83605; 83735; 84443; 84484; 85025; 85027; 85379; 86140; 87040; 87086; 93005; 93306; 93970; 94761; 97116; 97161; 97165; 97530; 99283; 99285; 99291; G0103; A9270; J0834; J3475; J3490; J7030; J7120; Q9967

== ENCOUNTER 2024-09-08 10:26 | Outpatient (CLI) | payer MEDICARE, BC, SELFPAY | END 2024-09-08 10:27 | disposition home or self-care (01) | PROVIDERS: PCP Family Medicine; Visit Provider Family Medicine | DX: E87.1 Hypo-osmolality and hyponatremia (principal); I48.91 Unspecified atrial fibrillation; Z79.899 Other long term (current) drug therapy | CPT/HCPCS: 80048; 80162 ==

== ENCOUNTER 2024-09-14 08:40 | Outpatient (CLI) | payer MEDICARE, BC, SELFPAY | END 2024-09-14 08:41 | disposition home or self-care (01) | PROVIDERS: PCP Family Medicine; Visit Provider Orthopaedic Surgery Sports Medicine | DX: M54.16 Radiculopathy, lumbar region (principal); M51.369 Other intervertebral disc degeneration, lumbar region without mention of lumbar back pain or lower extremity pain; M48.07 Spinal stenosis, lumbosacral region | CPT/HCPCS: 72148 ==

== ENCOUNTER 2024-09-23 11:49 | Outpatient (CLI) | payer MEDICARE, BC, SELFPAY | END 2024-09-23 11:50 | disposition home or self-care (01) | PROVIDERS: PCP Family Medicine; Visit Provider Urology | DX: R31.0 Gross hematuria (principal); N40.0 Benign prostatic hyperplasia without lower urinary tract symptoms | CPT/HCPCS: 74178; Q9967 ==

== ENCOUNTER 2024-09-25 09:17 | Outpatient (RCR) | payer MEDICARE, BC, SELFPAY ==
--- NOTE | 2024-09-25 10:42 | PT.OPEX ---
PT [facility] Out[facility] Eval PT [facility] Outpatient Eval Start: 09/25/24 07:39 Freq: Status: Active Protocol: Document 09/25/24 07:39 CRP (Rec: 09/25/24 10:40 CRP [id number]) E-signed By Peng Brown PT Physical Therapy Outpatient Evaluation Insurance Information Recert Due Date 12/24/24 Insurance Name Medicare B Medical Diagnosis Right Lumbar Radiculopathy Referring MD Dr Gupta Subjective Subjective Pt reports pain R hip and down his whole R leg to the foot and ankle. This started back in December/January 2024. Still painful sitting but most painful standing. Severe pain when standing and cannot put wt on the leg. Using a cane when he is walking. Lying down is most comfortable. Had PT Fall of last year. Seemed to help and thought he would do fine working on his own. Woke with severe pain for no known reason and has had major issues with R LE pain and R LBP. About 10 years ago he did have bladder CA that was treated. This Kennedy he started having issues urinating. It has been assessed and he was assured his CA has not returned. He seems to be having bladder issues possibly related to infection but the pt was not completely sure. He is currently using a a catheter. He is to have a visit next and hopes to soon be done with the catheter . Pain Comments -05/21 Current Work Status Retired Objective Other/Pertinent Objective Standing balance: Uses cane. Unsteady. Trunk ROM: flex mod dec, ext mack dec with pain, L SB min dec and feels good, R SB mack dec with pain. SLR R positive at 50 deg Hip ROM WNL Long axis R LE distraction - decreased pain MMT: Myotomes: R ankle DF and grt toe ext 4/5 Functional Test Performed & Score Tinetti score 19/28 Assessment Assessment/Impression Pt presents to the clinic with signs and sxs consistent with lumbar spine radiculopathy resulting in R LE weakness, poor tolerance to wt bearing and resulting increased risk for falls. Skilled PT is necessary to incorporate ther ex, nm zaire, manual therapy, balance training, gait training and pt education to decrease pain and improve functional mobility. 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 Pt will be independent with HEP in 8 weeks. 2. Pt will walk without cane and without increased risk for falls in 10 weeks. 3. 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 Coordination/Communication With Referral Source Treatment Plan/Direct Interventions Gait Training,Joint Mobilization,Manual Therapy, Neuromuscular Re-ed,Self-Care/ Home Management,Therapeutic Activities,Therapeutic Exercises Frequency/Duration 1-2x/wk for 12 weeks Patient Will Be Discharged From Therapy Completion of LTG(s),Skills Plateau,Independent w/HEP, Independently Progressing Evaluation Billing Untimed Code Treatment Minutes 40 Complexity Moderate Certification Information Initial Certification Date 09/25/24 Ending Certification Date 12/24/24 Provider Signature Required Yes Provider Signature Shows Agreement With POC & Medical Necessity Physician NPI Number Write NPI# Here Physician Comment/Change : Physician Signature & Date Requested Please Sign/Date Here
== END 2025-01-20 15:32 | disposition home or self-care (01) ==
PROVIDERS: PCP Family Medicine; Visit Provider Family Medicine
DX: M54.16 Radiculopathy, lumbar region (principal); Z51.89 Encounter for other specified aftercare
CPT/HCPCS: 97110; 97162

== ENCOUNTER 2024-10-02 15:23 | Emergency (ER) | payer MEDICARE, BC, SELFPAY ==
[2024-10-02 15:26] VITALS: BP 166/76; PULSE 85; RESP 16; TEMP 36.8; O2SAT 98; BMI 23.1
--- OUTSIDE RECORDS SUMMARY | 2024-10-02 15:26 | XMS_ITS | Continuity of Care Document ---
Author Organization [facility], [facility] Address [address] [place] [id number] Care Team Providers Care Job Placement Officer Name Role Phone ALEKSANDRAAniket SHEA Primary Care Provider [phone] Assessment No assessment recorded. Plan of Treatment Reminders Order Date Submit Date Provider Last Modified By Organization Details Last Modified Time Details Appointments LAB CATH UA/UC 2024 11:00A M CLINICAL_ SCHEDULE Not available Not available Not available LAB BLOOD DRAW 2024 02:50P [facility] Not available Not available Not available ESTABLISH ED 10 2024 01:20P M Obey Pedraza MD Not available Not available Not available PROCEDURE 30 2024 02:00P M CLINICAL_ SCHEDULE Not available Not available Not available Lab urinalysi s, dipstick - Per UTI protocol 2024 025 [facility], [address], [address], [place], [address], 10/02/2024 11:59:38 urinalysi s, microscop ic 2024 025 [email or web address] [facility], [address], [address], [place], [address], 10/02/2024 11:46:20 culture, urine 2024 025 [facility], [address], [address], [place], [address], 10/02/2024 11:46:49 Referral None recorded. Procedures None recorded. Surgeries None recorded. Imaging None recorded. Medication Orders None recorded. Patient TargetsNo targets recorded. Patient InstructionsNo instructions recorded. Reason for Referral None Reported. Results Created Date Observation Date Name Description Value Unit Range Abnormal Flag Note LastModifiedBy Organization Detail LastModifiedTime 09/23/19 25 09/23/2024 CT, urogr am No observ ation record ed. [facility] [address], [place], [address], 09/29/2024 11:20:24 Result Notes None recorded. Problems Name Problem SNOMED Code Status Onset Date Resolution Date Notes Provider Name and Address Organization Details Recorded Time Retention of urine 818563825 Active 2024 [facility] 5 12:52:01 Type 2 diabetes mellitus 66827288 [facility] 12:52:35 Hypertensiv e disorder 23842801 Active 2024 [facility] 5 12:52:38 Lower urinary tract symptoms due to benign prostatic hypertrophy 6867265312371 1 Active 2024 [facility] 5 10:56:02 Problem Notes None recorded. Procedures Surgical History Date Name Laterality Status Provider Name and Address Organization Details Recorded Time 5 Urodynamic Studies active Chelsey [facility] 09/29/2024 15:44:52 5 Fragoso Catheter Insertion active Chelsey [facility] 09/29/2024 15:46:01 5 Cystoscopy- male completed Obey Pedraza MD [address] [place] [address],[address], [phone], [facility] 09/09/2024 11:09:52 5 Past Data Reviewed completed Obey Pedraza MD [address] [place] [address],[address], [place], [address], [facility] 09/09/2024 09:40:02 4 [facility] 10:56:16 Imaging Results None recorded. Procedure Notes None recorded. Medical Equipment None Reported. Allergies Allergen ID Allergen Name Allergen Category Reaction Reaction Severity Criticality Documentation Date Start Date Code Code System Note Provider Name and Address Organization Details Recorded Time 361666 honey bee venom medicatio n Not available Not available Not available 09/01/2024 21722 7 RxNorm Not Available Not Available Not Available 396362 Product containin g penicilli n (product) medicatio n Not available Not available Not available 09/01/2024 01784 8001 SNOMED Not Available Not Available Not Available Medications Name Sig Start Date Stop Date Status Note LastModified by Organization Details LastModified Time atorvastati n 40 mg tablet Take 1 tablet every day by oral route. active Not Available Not Available No t Available metformin 500 mg tablet Take 1 tablet twice a day by oral route. active Not Available Not Available No t Available Macrobid 100 mg capsule Take 1 capsule twice a day by oral route as directed for 3 days. 10/02 completed Not Available Not Available Not Available lisinopril 10 mg tablet Take 1 tablet every day by oral route. active Not Available Not Available No t Available diltiazem ER 60 mg capsule,ext ended release 12 hr TAKE 1 CAPSULE BY MOUTH TWICE DAILY active Not Available Not Available No t Available gabapentin 100 mg tablet Take 1 tablet 3 times a day by oral route. 10/02 completed Not Available Not Available Not Available glipizide ER 10 mg 24 hr tablet,exte nded release Take 1 tablet every day by oral route. active Not Available Not Available No t Available Vitals Date Recorded Body height Body mass index (BMI) Body weight Provider Name and Address Organization Details Last Updated DateTime 10/02/2024 187.96 cm 23.1 kg/m2 73669.63 g Eleni Thomas [facility] 10/02/2024 11:35:02 Social History Question Answer Notes LastModified by Organizat ion Details LastModified Time Tobacco Smoking Status Former Smoker Kurt Graciela rajan [facility] 09/09/2024 10:55:43 What Is Your Level Of Alcohol Consumption? None Information not available 09/09/2024 What Is Your Level Of Caffeine Consumption? None Information not available 09/09/2024 When Did You Quit Smoking? 6-10yearssi [email or web address] rette Information not available 09/09/2024 What Was The Date Of Your Most Recent Tobacco Screening? 10/02/2024 [email or web address] Information not available 10/02/2024 How Much Tobacco Do You Smoke? No Information not available 09/09/2024 Do You Use Any Illicit Or Recreational Drugs? No Information not available 09/09/2024 Has Tobacco Cessation Counseling Been Provided? No Information not available 09/09/2024 Do You Or Have You Ever Used Any Other Forms Of Tobacco Or Nicotine? No Information not available 09/09/2024 Sex: Unknown Functional Status None recorded. Mental Status None recorded. Family History Relationship Description Onset Age of this Age Resolved Age Notes LastModified by Organization Details LastModified Time Father No current problems or disability [email or web address] Not available 09/09 10:55:23 Mother No current problems or disability [email or web address] Not available 09/09 10:55:23 Medical History No medical history recorded. Immunizations Vaccine Type Date Status Note Provider Nam e and Address Organization Details Recorded Time Influenza, adjuvanted, trivalent, PF 4 completed Kurt Meath null, [facility] 09/09/2024 10:52:31 zoster recombinant 3 completed Kurt Meath null, [facility] 09/09/2024 10:52:31 zoster recombinant 3 completed Kurt Meath null, [facility] 09/09/2024 10:52:31 Influenza, high-dose, quadrivalent, PF 1 completed [facility] null, [facility] 09/09/2024 10:52:31 Influenza, high-dose, quadrivalent, PF 0 completed Kurt Meath null, [facility] 09/09/2024 10:52:31 Influenza, adjuvanted, quadrivalent, PF 3 completed Kurt Meath null, [facility] 09/09/2024 10:52:31 Influenza, adjuvanted, quadrivalent, PF 2 completed Kurt Meath null, [facility] 09/09/2024 10:52:31 COVID-19, mRNA, LNP-S, PF, 30 mcg/0.3 mL dose 1 completed [facility] Meath null, [facility] 09/09/2024 10:52:31 COVID-19, mRNA, LNP-S, PF, 30 mcg/0.3 mL dose 1 completed Kurt Meath null, [facility] 09/09/2024 10:52:31 COVID-19, mRNA, LNP-S, PF, 30 mcg/0.3 mL dose 1 completed Kurt Meath null, [facility] 09/09/2024 10:52:31 COVID-19, mRNA, LNP-S, bivalent, PF, 30 mcg/0.3 mL dose 2 completed Kurt Meat null, [facility] 09/09/2024 10:52:31 RSV, recombinant, protein subunit RSVpreF, adjuvant reconstituted, 0.5 mL, PF 4 completed Kurt Meat null, [facility] 09/09/2024 10:52:31 COVID-19, mRNA, LNP-S, PF, 50 mcg/0.5 mL 4 completed Kurt Meat null, [facility] 09/09/2024 10:52:31 COVID-19, mRNA, LNP-S, PF, 50 mcg/0.5 mL 3 completed Kurt [facility] null, [facility] 09/09/2024 10:52:31 pneumococcal polysaccharide PPV23 8 completed Kurt Meat null, [facility] 09/09/2024 10:52:31 Tdap 6 completed Kurt [facility] null, [facility] 09/09/2024 10:52:31 Pneumococcal conjugate PCV 13 7 completed Kurt [facility] null, [facility] 09/09/2024 10:52:31 [facility] live [facility] 09/09/[facility]24 10:52:31 Influenza, high-dose, trivalent, PF 8 completed Kurt Meath null, [facility] 09/09/2024 10:52:31 Influenza, high-dose, trivalent, PF 7 completed Kurt Meath null, [facility] 09/09/2024 10:52:31 Influenza, high-dose, trivalent, PF 9 completed Kurt Meath null, [facility] 09/09/2024 10:52:31 Td (adult), 2 Lf tetanus toxoid, preservative free, adsorbed 5 completed Kurt Meath null, [facility] 09/09/2024 10:52:31 Hep A, adult 3 completed Kurt Meath null, [facility] 09/09/2024 10:52:31 typhoid, ViCPs 3 completed Kurt Meath null, [facility] 09/09/2024 10:52:31 influenza, seasonal, intradermal, preservative free 2 completed Kurt Meath null, [facility] 09/09/2024 10:52:31 influenza, seasonal, intradermal, preservative free 1 completed Kurt Meath null, [facility] 09/09/2024 10:52:31 Influenza, split virus, quadrivalent, PF 6 completed Kurt Meath null, [facility] 09/09/2024 10:52:31 Influenza, split virus, quadrivalent, PF 4 completed [facility] null, [facility] 09/09/2024 10:52:31 Past Encounters Encounter ID Performer Location Encounter Start Date Encounter Closed Date Diagnosis/Indication Diagnosis SNOMED-CT Code Diagnosis ICD10 Code Diagnosis Note [id number] Obey Pedraza MD [facility] [address] [place] [address],[address] [address] 09/09/2024 10:45:26 09/09/2024 11:49:30 Lower urinary tract symptoms due to benign prostatic hypertrophy 0734019351 9101 N40.1 Retention of urine 03501 4002 R33.9 Renato hematuria 48548594 5 R31.0 [id number] Eleni Thomas [facility] [address] [facility] [address] [place] [address] 10/02/2024 11:30:07 10/02/2024 11:47:02 Urinary tract infectious disease 49007658 N39.0 Per UTI/weight loss physician protocol. UA/UC today. Health Concerns Section Related Observation LastModified by Organization Detai ls LastModified Time None Recorded Concern Status LastModified by Organization Details LastModified Time None Recorded Payers Encounter Date Sequence Insurance Name Policy Number Policy Bustamante Covered Member ID Bustamante Member ID Guarantor Name 10/02/2024 1 [place] [employer] Suresh Martinez [id number] Suresh Martinez 10/02/2024 2 [facility] [id number] Suresh Martinez [id number] Suresh Martinez
--- OUTSIDE RECORDS SUMMARY | 2024-10-02 15:26 | XMS_ITS | Data Portability ---
Author Organization [facility], [facility] Address [address] [place] [address] Care Team Providers Care Geospatial Scientist Name Role Phone SHEA DURON Primary Care Provider Assessment Encounter Date Assessment Date Assessment LastModified by Organization Details LastModified Time 09/09/2024 09/09/2024 74 year old male with a history of benign prostatic hyperplasia with lower urinary tract symptoms , gross hematuria, and urinary retention. Not available 09/09/2024 11:12:08 Plan of Treatment Reminders Order Date Submit Date Provider Last Modified By Organization Details Last Modified Time Details Appointments LAB CATH U[facility] 2024 11:00A M CLINICAL_ SCHEDULE Not available Not available Not available LAB BLOOD DRAW 2024 02:50P M [facility] Not available Not available Not available ESTABLISH ED 10 2024 01:20P M Obey Pedraza MD Not available Not available Not available PROCEDURE 30 2024 02:00P M CLINICAL_ SCHEDULE Not available Not available Not available Lab urinalysi s, dipstick - Per UTI protocol 2024 025 MELIZA [facility], [address], [address], [place], [address], 10/02/2024 11:59:38 urinalysi s, microscop ic [email or web address] [place] [address] [facility], [address], [address], [place], [address], 10/02/2024 11:46:20 culture, urine 2024 025 [facility], [address], [address], [place], [address], 10/02/2024 11:46:49 Referral None recorded. Procedures urodynami c testing, complex (PROC) 2024 025 [email or web address] Not available 09/20/2024 18:38:38 Surgeries None recorded. Imaging CT, urogram 2024 025 [facility], [address] [place], [address], 09/23/2024 21:57:47 Medication Orders Macrobid 100 mg capsule [email or web address] [facility], [address] [place] [address], [address], 10/02/2024 11:35:40 Patient TargetsNo targets recorded. Patient Instructions Encounter Date Encounter Id Patient Instructions Last Modified By Organization Details Last Modified Time 09/09/2024 [id number] urodynamic studi es: about these tests Not available 09/09/2024 11:12:56 Gross hematuria: Likely secondary to decompression from catheterization with massive retention. His cystoscopy was negative for tumor. We will check a CT urogram. Urinary retention/Benign prostatic hyperplasia with lower uirnary tract symptoms: Given his degree of retention and cystoscopic findings I would like to ensure he has remaining detrusor function before we discussed further void trial or surgery. I will have him obtain urodynamic studies. He will also need a prostate specific antigen in 3-4 weeks to ensure no underlying prostate cancer. Not available 09/09/2024 11:12:41 Reason for Referral None Reported. Results Created Date Observation Date Name Description Value Unit Range Abnormal Flag Note LastModifiedBy Organization Detail LastModifiedTime 10/02/1910/02/2024 UA MICRO SCOPI C (ABNO RMAL COLOR ) U-WBC 10 - 25 [hpf] 0 - 2 abnormal Not Available [facility] [address], [place], [address], 10/02/2024 11:59:38 10/02/19 25 10/02/2024 UA MICRO SCOPI C (ABNO RMAL COLOR ) U-RBC PACKED [hpf] 0 - 2 abnormal Not Available [facility] [address] [facility] [address], [place], [address], 10/02/2024 11:59:38 10/02/19 25 10/02/2024 UA MICRO SCOPI C (ABNO RMAL COLOR ) bacteria MANY [hpf] none;r are abnormal Not Available [facility] [address] [facility] [address], [place], [address], 10/02/2024 11:59:38 10/02/19 25 10/02/2024 UA MICRO SCOPI C (ABNO RMAL COLOR ) squamous epi SMALL /lpf negati ve,sma ll This lab resul t is being provi ded to you and your provi katy at the same time in compl iance with the Centu ry Cures Act. Your provi katy may not have had time to revie w and make recom menda tions based on the resul t. Plerogelio e allow up to one week for provi katy revie w. Not Available [facility] [address] [facility] [address], [place], [address], 10/02/2024 11:59:38 10/02/19 25 10/02/2024 UA MICRO SCOPI C (ABNO RMAL COLOR ) sperm PRESEN T /hpf none-s een abnormal Not Available [facility] [address] [facility] [address], [place], [address], 10/02/2024 11:59:38 09/23/19 25 09/23/2024 CT, urogr am No observ ation record ed. [facility] [address], [place], [address], 09/29/2024 11:20:24 Result Notes None recorded. Problems Name Problem SNOMED Code Status Onset Date Resolution Date Notes Provider Name and Address Organization Details Recorded Time Retention of urine 326674830 Active 2024 [facility], [facility] 5 12:52:01 Type 2 diabetes mellitus 31711189 Active 2024 [facility] null, [facility] 5 12:52:35 Hypertensiv e disorder 63046758 Active 2024 [facility], [facility] 5 12:52:38 Lower urinary tract symptoms due to benign prostatic hypertrophy 3806340100410 1 Active 2024 [facility], [facility] 5 10:56:02 Problem Notes None recorded. Procedures Surgical History Date Name Laterality Status Provider Name and Address Organization Details Recorded Time 5 Urodynamic Studies active Chelsey [facility] 09/29/2024 15:44:52 5 Fragoso Catheter Insertion active Chelsey [facility] 09/29/2024 15:46:01 5 Cystoscopy- male completed Obey Pedraza MD [address] [place] [address],[address], [address], [facility] 09/09/2024 11:09:52 5 Past Data Reviewed completed Obey Pedraza MD [address] [place] [address],[address], [address], [facility] 09/09/2024 09:40:02 4 Colonoscopy completed [facility] 09/09/2024 10:56:16 Imaging Results Imaging Date Name Status LastModified by Organiz ation Details LastModified Time 09/23/2024 CT, urogram active MELIZA [facility] [address], [place], [address], 09/29/2024 11:20:24 Procedure Notes None recorded. Medical Equipment None Reported. Allergies Allergen ID Allergen Name Allergen Category Reaction Reaction Severity Criticality Documentation Date Start Date Code Code System Note Provider Name and Address Organization Details Recorded Time 974201 honey bee venom medicatio n Not available Not available Not available 09/01/2024 98241 7 RxNorm Not Available Not Available Not Available 107119 Product containin g penicilli n (product) medicatio n Not available Not available Not available 09/01/2024 65211 8001 SNOMED Not Available Not Available Not [...] and Address Organization Details Last Updated DateTime 09/09/2024 187.96 cm 23.1 kg/m2 37013.63 g Kurt [facility] 09/09/2024 10:55:12 Date Recorded Body height Provider Name an d Address Organization Details Last Updated DateTime 09/29/2024 187.96 cm Chelsey [facility] 15:18:31 Date Recorded Body height Body mass index (BMI) Body weight Provider Name and Address Organization Details Last Updated DateTime 10/02/2024 187.96 cm 23.1 kg/m2 01552.63 g Eleni Thomas [facility] 10/02/2024 11:35:02 Social History Question Answer Notes LastModified by Organizat ion Details LastModified Time Tobacco Smoking Status Former Smoker Kurt rajan, [facility] 09/09/2024 10:55:43 What Is Your Level Of Alcohol Consumption? None Information not available 09/09/2024 What Is Your Level Of Caffeine Consumption? None Information not available 09/09/2024 When Did You Quit Smoking? 6-10yearssi kimber henry Information not available 09/09/2024 What Was The [...] trivalent, PF 4 completed Kurt Meath null, [facility] 09/09/2024 10:52:31 zoster recombinant 3 completed Kurt Meath null, [facility] 09/09/2024 10:52:31 zoster recombinant 3 completed Kurt Meath null, [facility] 09/09/2024 10:52:31 Influenza, high-dose, quadrivalent, PF 1 completed Kurt Meath null, [facility] 09/09/2024 10:52:31 Influenza, high-dose, quadrivalent, PF 0 completed Kurt Meath null, [facility] 09/09/2024 10:52:31 Influenza, adjuvanted, quadrivalent, PF 3 completed Kurt Meath null, [facility] 09/09/2024 10:52:31 Influenza, adjuvanted, quadrivalent, PF 2 completed Kurt Meath null, [facility] 09/09/2024 10:52:31 COVID-19, mRNA, LNP-S, PF, 30 mcg/0.3 mL dose 1 completed Kurt Meath null, [facility] 09/09/2024 10:52:31 COVID-19, mRNA, LNP-S, PF, 30 mcg/0.3 mL dose 1 completed Kurt Meath null, [facility] 09/09/2024 10:52:31 COVID-19, mRNA, LNP-S, PF, 30 mcg/0.3 mL dose 1 completed Kurt Meath null, [facility] 09/09/2024 10:52:31 COVID-19, mRNA, LNP-S, bivalent, PF, 30 mcg/0.3 mL dose 2 completed Kurt Meath null, [facility] 09/09/2024 10:52:31 RSV, recombinant, protein subunit RSVpreF, adjuvant reconstituted, 0.5 mL, PF 4 completed Kurt [facility] null, [facility] 09/09/2024 10:52:31 COVID-19, mRNA, LNP-S, PF, 50 mcg/0.5 mL 4 completed Kurt Meat null, [facility] 09/09/2024 10:52:31 COVID-19, mRNA, LNP-S, PF, 50 mcg/0.5 mL 3 completed Kurt Meath null, [facility] 09/09/2024 10:52:31 pneumococcal polysaccharide PPV23 8 completed Kurt Meat null, [facility] 09/09/2024 10:52:31 Tdap 6 completed Kurt Meat null, [facility] 09/09/2024 10:52:31 Pneumococcal conjugate PCV 13 7 completed Kurt Meat null, [facility] 09/09/2024 10:52:31 zoster live 7 completed Kurt Meath null, [facility] 09/09/2024 10:52:31 Influenza, high-dose, trivalent, PF 8 completed Kurt Meath null, [facility] 09/09/2024 10:52:31 Influenza, high-dose, trivalent, PF 7 completed Kurt Meath null, [facility] 09/09/2024 10:52:31 Influenza, high-dose, trivalent, PF 9 completed Kurt Meath null, [facility] 09/09/2024 10:52:31 Td (adult), 2 Lf tetanus toxoid, preservative free, adsorbed 5 completed Kurt Meath null, [facility] 09/09/2024 10:52:31 Hep A, adult 3 completed Kurt Meath null, [facility] 09/09/2024 10:52:31 typhoid, ViCPs 3 completed Kurt Meath null, [facility] 09/09/2024 10:52:31 influenza, seasonal, intradermal, preservative free 2 completed Kurt Meath null, [facility] 09/09/2024 10:52:31 influenza, seasonal, intradermal, preservative free 1 completed Kurt Meath null, [facility] 09/09/2024 10:52:31 Influenza, split virus, quadrivalent, PF 6 completed Kurt Meath null, [facility] 09/09/2024 10:52:31 Influenza, split virus, quadrivalent, PF 4 completed Kurt Meath null, [facility] 09/09/2024 10:52:31 Past Encounters Encounter ID Performer Location Encounter Start Date Encounter Closed Date Diagnosis/Indication Diagnosis SNOMED-CT Code Diagnosis ICD10 Code Diagnosis Note [id number] Obey Pedraza MD [facility] [address] [address] 09/09/2024 10:45:26 09/09/2024 11:49:30 Lower urinary tract symptoms due to benign prostatic hypertrophy 8816017846 9101 N40.1 Retention of urine 99786 4002 R33.9 Renato hematuria 46957356 5 R31.0 [id number] Eleni [facility] [address] [facility] [place] [address] 10/02/2024 11:30:07 10/02/2024 11:47:02 Urinary tract infectious disease 50279400 N39.0 Per UTI/dispenser operator protocol. UA/UC today. Health Concerns Section Related Observation LastModified by Organization Detai ls LastModified Time None Recorded Concern Status LastModified by Organization Details LastModified Time None Recorded Advance Directives Directive None Recorded Payers Encounter Date Sequence Insurance Name Policy Number Policy Bustamante Covered Member ID Bustamante Member ID Guarantor Name 09/09/2024 1 [place] [employer] Suresh H Broske [id number] Suresh H Broske 09/09/2024 2 [facility] [id number] Suresh H Broske [id number] Suresh H Broske 10/02/2024 1 [place] [employer] Suresh H Broske [id number] Suresh H Broske 10/02/2024 2 [facility] [id number] Suresh H Broske [id number] Suresh H Broske Notes Date Note Type Note Provider Name and Address Organization Details Recorded Time 09/09/2024 text/html This is a 74 yea r old male who is referred for the evaluation and management of urinary retention. He presented for the evaluation of worsening voiding symptoms.He was found to be in urinary retention and he was catheterized.He returned shortly thereafter with repeat retention.A Fragoso was placed with 2.0 liters of output and he developed gross hematuria and was admitted at [facility] for continuous bladder irrigation.He still has his Fragoso indwelling. Obey Pedraza MD [address] [facility],[address], [place], [address], [facility] 09/09/2024 11:13:03
--- OUTSIDE RECORDS SUMMARY | 2024-10-02 15:26 | XMS_ITS | Clinical Summary ---
Author Organization [facility] Address [address] [place] [address] Care Team Providers Care Swimming Instructor Name Role Phone Santi Juarez MD Primary Care Provider [phone] Allergies Active Allergy Reactions Criticality Noted Date [...] meals. Active glimepiride (AMARYL) 2 mg tablet 04/08/202 1 Active lisinopriL (PRINIVIL; ZESTRIL) 10 mg [...] Hematuria 04/18/2015 Hypercholesterolemia 04/18/2015 HTN (hypertension) 04/18/2015 Encounters Date Type Department Care Team Description 09/24/2024 Transcribe Orders [facility] [address] [place] [address] Doug Dia MD 09/23/2024 Transcribe Orders [facility] [place] [phone] Shaun Baer MD 08/28/2024 3:00 PM REGIONAL TRANSPORTATION MANAGER Ancillary Procedure [facility] [address] [place] [address] 08/27/2024 Telephone [facility] [address] [place], [place] [id number] Harvey Gonzalez MD from Last 3 Months Immunizations Name Administration Dates Next Due Influenza [...] on file Legal Sex Male 7:26 PM REGIONAL TRANSPORTATION MANAGER Gender Identity Not on file Sexual [...] 01/03/2021 6:29 AM CDT Plan of Treatment Upcoming Encounters Date Type Department Care Team (Late st Contact Info) Description 10/08/2024 10:00 AM REGIONAL TRANSPORTATION MANAGER Office Visit [facility] [address] [place] [address] Alton Mayes MD [address] [facility] [address] [place] [address] 10/13/2024 10:20 AM REGIONAL TRANSPORTATION MANAGER Office Visit [facility] at [facility] [address] [place] [address] Doug Dia MD [address] [place] [address] Health Maintenance Due Date Last Done Comments Depression screening for age 12+ 1964 Hepatitis C screening for ag e 18-79 01/11/1970 Pneumococcal series for age 50+ (1 of 2 - PCV) 01/11/1971 Lipids for age 45-75 01/11/1997 Zoster (shingles) series for age 50+ (1 of 2) 01/11/2002 RSV vaccine for adults or (1 - Risk 60-74 years 1-dose series) 2012 Tetanus booster 11/17/2014 11/17/2004 Medicare Wellness for age 65+ 01/11/2017 BMI (ht and wt on same day) for age 18+ 12/09/2021 12/09/2020, 12/07/2020 Influenza for age 65+ 04/12/2024 05/19/2014 , 05/11/2012, 05/14/2011 Colonoscopy through age 75 04/03/202804/03, 04/03/2023, 04/01/2018, Additional history exists Tdap Completed 11/17/2004 COVID-19 vaccine series Completed 04/16/20 24, 05/08/2022, 06/01/2021, Additional history exists Medical Devices Implanted Type Area Story Editor Device Identifier Shelf Expiration Date Model / Serial / Lot Tissue Pericardium 0.8x8cm Xenosure - [id number] Implanted:Qty: 1 on 01/03/2021 by Cesar Jacobs MD at [facility] Right: Carotid Artery [employer] 08/08/2026 0.8P8 / / [id number] Procedures Procedure Name Priority Date/Time Associated Diagnosis Comments ECHO TTE COMPLETE WO CONTRAST Routine 08/28/2024 1:07 PM REGIONAL TRANSPORTATION MANAGER New onset a-fib (HC) COLONOSCOPY 04/03/2023 9:22 AM CDT from Last 3 Months or Most Recently Relevant to Health Maintenance Results * ECHO TTE COMPLETE WO CONTRAST (08/28/2024 1:07 PM REGIONAL TRANSPORTATION MANAGER) AORTIC VALVE MEAN PG 5 mmHg EJECTION FRACTION 67 % PEAK TR VELOCITY 2.7 m/s LVEDD 3.8 cm EJECTION FRACTION 60 - 65% Anatomical Region Laterality Modality Ultrasound 08/28/2024 10:4 4 AM REGIONAL TRANSPORTATION MANAGER Narrative 08/28/2024 1:14 PM REGIONAL TRANSPORTATION MANAGER ECHOCARDIOGRAM SURESH MOLINA : 1950 74 years Study Date: 08/28/2024 10:44:58 AM Gender: M BP: 179/93 mmHg Height: 188.00 cm BSA: 2.10 m Weight: 84.00 kg Tech: SEN Referring MD: LEOPOLDO MUÑIZ Site: [facility] Location: Mobile- Patient Location: Inpatient. Procedure: 2D, Color Doppler and Spectral Doppler. Indication for study: Afib Cardiac Rhythm: Regular.Study quality: Fair. Final Impressions: 1. Normal LV size, normal wall thickness, normal global systolic function with an estimated EF of 60 - 65%. 2. Right ventricular cavity size is normal, global systolic RV function is normal. 3. The mitral valve is sclerotic, trace mitral regurgitation. Chamber Sizes and Function Normal left ventricular size, normal wall thickness, normal global systolic function with an estimated EF of 60 - 65%. No resting regional wall motion abnormality visualized. Left atrial size is normal. Left atrial pressure is normal. Right ventricular cavity size is normal, global systolic RV function is normal. The right atrium is normal. Right atrial volume index is 20 ml/m . Right atrial area is 16 cm . The pulmonary artery is not well visualized. The sinus of Valsalva is normal sized. The ascending aorta is normal sized. Valves, RV Pressures and Diastolic Function The aortic valve is trileaflet, no stenosis and no regurgitation. The mitral valve is sclerotic, trace mitral regurgitation. Spectral Doppler shows Grade 1 pattern of LV diastolic filling. The tricuspid valve is normal in structure. Tricuspid regurgitation is trace regurgitation. The tricuspid regurgitant velocity is 2.7 m/s, the estimated right ventricular systolic pressure is 30 mmHg plus right atrial pressure. The pulmonic valve is normal. Trace pulmonary regurgitation. Masses, Effusion, Shunts There is no pericardial effusion. The inferior vena cava is not well visualized, respiratory size variation not well visualized. No left to right shunting was detected by limited color flow Doppler interrogation of the interatrial septum. MEASUREMENTS AND CALCULATIONS 2-D Measurements and LV Function: LVID (d) 3.8 cm LV FS% (2D) 28 % LVID (s) 2.7 cm LVOT diameter 2.0 cm IVS (d) 1.1 cm HR 80 bpm LVPW (d) 2.4 cm LA Vol index 20 ml/m2 Ao Sinus 3.6 cm RA Vol index 20 ml/m2 Asc Ao 3.5 cm RA area 16 cm LA 3.4 cm RV Max 4C (d) 2.9 cm Diastology: Mitral Tissue Doppler Pulmonary veins E Peak 0.9 m/s e', Septum 0.07 m/s Pulm s 72.7 cm/s A Peak 1.2 m/s e', Lateral 0.09 m/s Pulm d 47.7 cm/s E/A 0.7 E/e' Average 10.49 Pulm s/d ratio 1.52 DT 261 msec Aortic Valve: Vmax 1.6 m/s OLENA (V) 2.17 cm VTI 0.32 m OLENA (I) 2.10 cm LVOT V max 1.1 m/s Max PG 11 mmHg LVOT VTI 0.20 m Mean PG 5 mmHg SV 67 ml Dim Index 0.64 SV index 32 ml/m CO 5.3 l/min CI 2.5 l/min/m Mitral Valve: MVA 2.9 cm MV P 1/2 76 msec Tricuspid Valve and estimated PA pressures: TR Vmax 2.7 m/s TAPSE 2.1 cm TR maxG 30 mmHg Pulmonic Valve: PV Vmax 1.1 m/s . This study was interpreted by an [facility] accredited facility. CC: [facility] (med records) [facility] - [facility]. Final Procedure Note Jony Donato MD - 08/28/2024 ECHOCARDIOGRAM SURESH MOLINA : 1950 74 years Study Date: 08/28/2024 10:44:58 AM Gender: M BP: 179/93 mmHg Height: 188.00 cm BSA: 2.10 m Weight: 84.00 kg Tech: NWA Referring MD: LEOPOLDO MUÑIZ Site: [facility] Location: Mobile-IP Patient Location: Inpatient. Procedure: 2D, Color Doppler and Spectral Doppler. Indication for study: Afib Cardiac Rhythm: Regular.Study quality: Fair. Final Impressions: 1. Normal LV size, normal wall thickness, normal global systolic functionwith an estimated EF of 60 - 65%. 2. Right ventricular cavity size is normal, global systolic RV functionis normal. 3. The mitral valve is sclerotic, trace mitral regurgitation. Chamber Sizes and Function Normal left ventricular size, normal wall thickness, normal globalsystolic function with an estimated EF of 60 - 65%. No resting regionalwall motion abnormality visualized. Left atrial size is normal. Leftatrial pressure is normal. Right ventricular cavity size is normal, globalsystolic RV function is normal. The right atrium is normal. Right atrialvolume index is 20 ml/m . Right atrial area is 16 cm . The pulmonaryartery is not well visualized. The sinus of Valsalva is normal sized. Theascending aorta is normal sized. Valves, RV Pressures and Diastolic Function The aortic valve is trileaflet, no stenosis and no regurgitation. Themitral valve is sclerotic, trace mitral regurgitation. Spectral Dopplershows Grade 1 pattern of LV diastolic filling. The tricuspid valve isnormal in structure. Tricuspid regurgitation is trace regurgitation. Thetricuspid regurgitant velocity is 2.7 m/s, the estimated right ventricularsystolic pressure is 30 mmHg plus right atrial pressure. The pulmonicvalve is normal. Trace pulmonary regurgitation. Masses, Effusion, Shunts There is no pericardial effusion. The inferior vena cava is not wellvisualized, respiratory size variation not well visualized. No left toright shunting was detected by limited color flow Doppler interrogation ofthe interatrial septum. MEASUREMENTS AND CALCULATIONS 2-D Measurements and LV Function: LVID (d) 3.8 cm LV FS% (2D) 28 % LVID (s) 2.7 cm LVOT diameter 2.0 cm IVS (d) 1.1 cm HR 80 bpm LVPW (d) 2.4 cm LA Vol index 20 ml/m2 Ao Sinus 3.6 cm RA Vol index 20 ml/m2 Asc Ao 3.5 cm RA area 16 cm LA 3.4 cm RV Max 4C (d) 2.9 cm Diastology: Mitral Tissue Doppler Pulmonary veins E Peak 0.9 m/s e', Septum 0.07 m/s Pulm s 72.7 cm/s A Peak 1.2 m/s e', Lateral 0.09 m/s Pulm d 47.7 cm/s E/A 0.7 E/e' Average 10.49 Pulm s/d ratio 1.52 DT 261 msec Aortic Valve: Vmax 1.6 m/s OLENA (V) 2.17 cm VTI 0.32 m OLENA (I) 2.10 cm LVOT V max 1.1 m/s Max PG 11 mmHg LVOT VTI 0.20 m Mean PG 5 mmHg SV 67 ml Dim Index 0.64 SV index 32 ml/m CO 5.3 l/min CI 2.5 l/min/m Mitral Valve: MVA 2.9 cm MV P 1/2 76 msec Tricuspid Valve and estimated PA pressures: TR Vmax 2.7 m/s TAPSE 2.1 cm TR maxG 30 mmHg Pulmonic Valve: PV Vmax 1.1 m/s . This study was interpreted by an [facility] accredited facility. CC: [facility] (med records) [facility] Med[facility]Surg - IP [facility]. Final Leopoldo OLIVEIRA ECHO ORD Final Result * COLONOSCOPY (04/03/2023 9:22 AM CDT) 04/03/2023 9:22 AM CDT Narrative Transcriptions Moi Lui MD - 04/03/2023 11:12 AM CDT Patient Name: Suresh Molina Procedure Date: 04/03/2023 Gender: Male Date of [...] candidate for conscious sedation. The endoscope [id number]-[id number] was passed through the anus andadvanced to [...] 9:22 AM Procedure Code(s): --- Professional --- 63089, Colonoscopy, flexible; with removalof tumor(s), polyp(s), or other lesion(s) bysnare technique Diagnosis Code(s): --- Professional --- Z86.010, Personal history of colonicpolyps D12.2, Benign neoplasm of ascending colon K57.30, Diverticulosis of large intestine without perforation or abscess withoutbleeding CPT copyright 2021 [employer]. All rights reserved. The codes documented in this report are preliminary and upon imaging scheduler reviewmay be revised to meet current compliance requirements. Scope In: 10:44:45 AM Scope Withdrawal Time 0 hours 10 minutes 40 seconds Scope Out: 10:59:10 AM us Moi Lui MD PROCEDURE ORD Final Res ult from Last 3 Months or Most Recently Relevant to Health Maintenance Insurance PREFERRED ONE [facility] [place] [address] MEDICARE PART B HB ONLY [facility] MEDICARE PB ONLY MEDICARE PART A HB ONLY Advance Directives * Full Code (Latest Code Status on File) Date Activated Date Inactivated Comments 01/03/2021 6:00 AM 01/04/2021 1:54 PM Question Answer Comments Code Status Discussion: Not Discussed Care Teams Swimming Instructor Relationship Specialty Start Date End Date Santi Juarez MD [address] [place] [address] PCP - General Family Practice 12/07/20
--- OUTSIDE RECORDS SUMMARY | 2024-10-02 15:26 | XMS_ITS | Clinical Summary ---
Author Organization [facility] Address [address] [facility] [place] [address] Care Team Providers Care Incubator Machine Operator Name Role Phone Guero Hutchinson MD [...] on file Legal Sex Male 3:05 AM ARRANGING FUNERAL DIRECTOR Gender Identity Not on file Sexual Orientation Not on file Last Filed Vital Signs Vital Sign Reading Time Taken Comments Blood Pressure 122/78 09/10/2017 9:11 AM ARRANGING FUNERAL DIRECTOR Pulse 70 09/10/2017 9:11 AM ARRANGING FUNERAL DIRECTOR Temperature 36.7 C (98 F) 03/26/2013 9:28 AM CDT Respiratory Rate 18 03/26/2013 9:28 AM CDT Oxygen Saturation 98% 03/26/2013 9:28 AM CDT Inhaled Oxygen Concentration - - Weight 106.6 kg (235 lb) 09/10/2017 9:11 AM ARRANGING FUNERAL DIRECTOR Height 188 cm (6' 2) 09/10/2017 9:11 AM ARRANGING FUNERAL DIRECTOR Body Mass Index 30.17 09/10/2017 9:11 AM ARRANGING FUNERAL DIRECTOR Plan of Treatment Not on file Insurance MEDICARE Member Subscriber Plan / Payer (Ef fective 2017-Present) Name:Suresh Martinez Member ID:[id number] Relation to Subscriber:Self Name:Suresh Martinez Subscriber ID:[id number] Payer ID:[id number] Group ID:Not on file Type:Medicare Address: [address] [address] Care Teams Incubator Machine Operator Relationship Specialty Start Date End Date Guero Hutchinson MD [address] [place] [address] R[place] LIRA [address] PCP - General Urology 11/14/15
--- OUTSIDE RECORDS SUMMARY | 2024-10-02 15:26 | XMS_ITS | Continuity of Care Document ---
Author Organization [facility] Address [address] [place] [address] Care Team Providers Care Sampling Theory Teacher Name Role Phone DOMI SHEA Primary Care Provider Assessment Encounter Date Assessment [...] Not available Not available Not available Lab None recorded. Referral None recorded. Procedures urodynami c testing, complex (PROC) 2024 025 [email or web address] Not available 09/20/2024 18:38:38 [address]geries [address] Imaging CT, urogram 2024 025 [facility], [address] [place], [address], 09/23/2024 21:57:47 Medication Orders Macrobid 100 mg capsule 2024 025 [email or web address] [facility], [address] [place], [address], 10/02/2024 11:35:40 Patient TargetsNo targets recorded. Patient Instructions Encounter Date Encounter Id Patient Instructions Last Modified By Organization Details Last Modified Time 09/09/2024 [id number] urodynamic studi es: about these tests Not [...] Abnormal Flag Note LastModifiedBy Organization Detail LastModifiedTime 09/23/1909/23/2024 CT, urogr am No observ ation record ed. [facility] [address], [place], [address], 09/29/2024 11:20:24 Result Notes None recorded. Problems Name Problem SNOMED Code Status Onset Date Resolution Date Notes Provider Name and Address Organization Details Recorded Time Retention of urine 920492154 Active 2024 Kurt rajan [facility] 5 12:52:01 Type 2 diabetes mellitus 70161983 Active 2024 Kurt rajan [facility] 5 12:52:35 Hypertensiv e disorder 23484250 Active 2024 Kurt rajan [facility] 5 12:52:38 Lower urinary tract symptoms due to benign prostatic hypertrophy 3056121133398 1 Active 2024 Kurt rajan [facility] 5 10:56:02 Problem Notes None recorded. Procedures Surgical History Date Name Laterality Status Provider Name and Address Organization Details Recorded Time 5 Urodynamic Studies active Chelsey Most [facility] 09/29/2024 15:44:52 5 Fragoso Catheter Insertion active Chelsey Most [facility] 09/29/2024 15:46:01 5 Cystoscopy- male completed Obey Pedraza MD [address] [place] [address],[facility] [address], [place], [address], [facility] 09/09/2024 11:09:52 5 Past Data Reviewed completed Obey Pedraza MD [address] [place] [address],[address], [place], [address], [facility] 09/09/2024 09:40:02 4 Colonoscopy completed [facility] 09/09/2024 10:56:16 Imaging Results None recorded. Procedure Notes None recorded. Medical Equipment None Reported. Allergies Allergen ID Allergen Name Allergen Category Reaction Reaction Severity Criticality Documentation Date Start Date Code Code System Note Provider Name and Address Organization Details Recorded Time 780725 honey bee venom medicatio n Not available Not available Not available 09/01/2024 20545 7 RxNorm Not Available Not Available Not Available 312049 Product containin g penicilli n (product) medicatio n Not available Not available Not available 09/01/2024 27128 8001 SNOMED Not Available Not Available Not [...] Updated DateTime 09/09/2024 187.96 cm 23.1 kg/m2 42630.63 g Kurt Graciela [facility] 09/09/2024 10:55:12 Social History Question Answer Notes LastModified by Organizat ion Details LastModified Time Tobacco Smoking Status Former Smoker Kurt rajan [facility] 09/09/2024 10:55:43 What Is Your [...] Influenza, adjuvanted, trivalent, PF 4 completed Kurt rajan [facility] 09/09/2024 10:52:31 zoster recombinant 3 completed Kurt rajan [facility] 09/09/2024 10:52:31 zoster recombinant 3 completed Kurt Meath null, [facility] 09/09/2024 10:52:31 Influenza, high-dose, quadrivalent, PF 1 completed [facility] Meath null, [facility] 09/09/2024 10:52:31 Influenza, high-dose, quadrivalent, PF 0 completed Kurt Meath null, [facility] 09/09/2024 10:52:31 Influenza, adjuvanted, quadrivalent, PF 3 completed Kurt Meath null, [facility] 09/09/2024 10:52:31 Influenza, adjuvanted, quadrivalent, PF 2 completed Kurt Meath null, [facility] 09/09/2024 10:52:31 COVID-19, mRNA, LNP-S, PF, 30 mcg/0.3 mL dose 1 completed Kurt Meath null, [facility] 09/09/2024 10:52:31 COVID-19, mRNA, LNP-S, PF, 30 mcg/0.3 mL dose 1 completed Kurt Meath null, [facility] 09/09/2024 10:52:31 COVID-19, mRNA, LNP-S, PF, 30 mcg/0.3 mL dose 1 completed Kurt Meath null, [facility] 09/09/2024 10:52:31 COVID-19, mRNA, LNP-S, bivalent, PF, 30 mcg/0.3 mL dose 2 completed Kurt Meath null, [facility] 09/09/2024 10:52:31 RSV, recombinant, protein subunit RSVpreF, adjuvant reconstituted, 0.5 mL, PF 4 completed Kurt Meath null, [facility] 09/09/2024 10:52:31 COVID-19, mRNA, LNP-S, PF, 50 mcg/0.5 mL 4 completed Kurt Meath null, [facility] 09/09/2024 10:52:31 COVID-19, mRNA, LNP-S, PF, 50 mcg/0.5 mL 3 completed Kurt Meath null, [facility] 09/09/2024 10:52:31 pneumococcal polysaccharide PPV23 8 completed Kurt Meath null, [facility] 09/09/2024 10:52:31 Tdap 6 completed Kurt Meath null, [facility] 09/09/2024 10:52:31 Pneumococcal conjugate PCV 13 7 completed Kurt Meath null, [facility] 09/09/2024 10:52:31 zoster live 7 completed Kurt Meath null, [facility] 09/09/2024 10:52:31 Influenza, high-dose, trivalent, PF 8 completed Kurt Meath null, [facility] 09/09/2024 10:52:31 Influenza, high-dose, trivalent, PF 7 completed Kurt Meath null, [facility] 09/09/2024 10:52:31 Influenza, high-dose, trivalent, PF 9 completed Kurt Meath null, [facility] 09/09/2024 10:52:31 Td (adult), 2 Lf tetanus toxoid, preservative free, adsorbed 5 completed Kurt Meath null, [facility] 09/09/2024 10:52:31 Hep A, adult 3 completed Kurt Meath null, [facility] 09/09/2024 10:52:31 typhoid, ViCPs 3 completed Kurt Meath null, [facility] 09/09/2024 10:52:31 influenza, seasonal, intradermal, preservative free 2 completed Kurt Meath null, [facility] 09/09/2024 10:52:31 influenza, seasonal, intradermal, preservative free 1 completed Kurt Meath null, [facility] 09/09/2024 10:52:31 Influenza, split virus, quadrivalent, PF 6 completed Kurt Huberth satinder, [facility] 09/09/2024 10:52:31 Influenza, split virus, quadrivalent, PF 4 completed Kurt Meath null, [facility] 09/09/2024 10:52:31 Past Encounters Encounter ID Performer Location Encounter Start Date Encounter Closed Date Diagnosis/Indication Diagnosis SNOMED-CT Code Diagnosis ICD10 Code Diagnosis Note [id number] Obey Pedraza MD [facility] [address] [place] [address],[address] [place] [address] 09/09/2024 10:45:26 09/09/2024 11:49:30 Lower urinary tract symptoms due to benign prostatic hypertrophy 5985841914 9101 N40.1 Retention of urine 66009 4002 R33.9 Renato hematuria 87422916 5 R31.0 Health Concerns Section Related Observation LastModified by Organization Detai ls LastModified Time None Recorded Concern Status LastModified by Organization Details LastModified Time None Recorded Payers Encounter Date Sequence Insurance Name Policy Number Policy Bustamante Covered Member ID Bustamante Member ID Guarantor Name 09/09/2024 1 [place]: [employer] Suresh Martinez [id number] Suresh Martinez 09/09/2024 [facility] [id number] Suresh Martinez [id number] Suresh Martinez Notes Date Note Type Note Provider Name [...] developed gross hematuria and was admitted at [facility] for continuous bladder irrigation.He still has his Fragoso indwelling. Obey Pedraza MD [address] [facility],[address], [place], [address], [facility] 09/09/2024 11:13:03
--- NOTE | 2024-10-02 15:36 | ED.GENADULT ---
HPI - General Adult General Chief complaint: Urogenital Problems, Male Stated complaint: Catheter broken, leaking Time Seen by Provider: 10/02/24 15:28 Source: patient Mode of arrival: ambulatory Limitations: no limitations History of Present Illness HPI narrative: 74-year-old male presenting today with concerns about his catheter leaking. Patient had catheter changed earlier this week and was having some bleeding. This morning he went to see [facility] and had his catheter flushed. Since then however, urine has been leaking around the catheter not into the back. He denies pain or other concerns. Related Data Home Medications ?Medication ?Instructions ?Recorded ?Confirmed mupirocin 2 % topical ointment 1 applic topical TID PRN 09/28/24 nitrofurantoin 100 mg PO BID 09/28/24 09/28/24 monohydrate/macrocrystals 100 mg capsule Previous Rx's ?Medication ?Instructions ?Recorded epinephrine 0.3 mg/0.3 mL 0.3 ml IM .As Needed as needed PRN 07/03/23 injection, auto-injector anaphylaxis #2 ea diltiazem HCl 60 mg 60 mg PO BID #60 caps 09/01/24 capsule,extended release 12 hr amlodipine 10 mg tablet 10 mg PO DAILY #90 tabs 09/28/24 atorvastatin 40 mg tablet 40 mg PO HS #90 tabs 09/28/24 digoxin 125 mcg (0.125 mg) tablet 125 mcg PO DAILY #30 tabs 09/28/24 glipizide 10 mg tablet, extended 10 mg PO DAILY #90 tabs 09/28/24 release 24 hr lisinopril 10 mg tablet 10 mg PO DAILY #90 tabs 09/28/24 metformin 500 mg tablet,extended 1,000 mg (2 x 500 mg) PO QDAY #180 09/28/24 release 24 hr tabs Allergies Allergy/AdvReac Type Severity Reaction Status Date / Time bee venom protein (honey bee) Allergy Verified 09/28/24 12:42 Penicillins Allergy Verified 09/28/24 12:42 tamsulosin (From Flomax) AdvReac Intermediate orthostatic Verified 09/28/24 12:42 hypotension Review of Systems Status of ROS: Reports: 6 or more systems reviewed and unremarkable except as noted in History and below PFSH PFS Medical History Gout ?M10.9 - Gout, unspecified (ICD-10) Hypertension ?I10 - Essential (primary) hypertension (ICD-10) Diabetes mellitus ?E11.9 - Type 2 diabetes mellitus without complications (ICD-10) Foot pain ?M79.673 - Pain in unspecified foot (ICD-10) Abnormal gait ?R26.9 - Unspecified abnormalities of gait and mobility (ICD-10) Surgical History History of amputation of toe ?Z89.429 - Acquired absence of other toe(s), unspecified side (ICD-10) History of colonoscopy ?Z98.890 - Other specified postprocedural states (ICD-10) History of tonsillectomy (1968) ?Z90.89 - Acquired absence of other organs (ICD-10) History of right-sided carotid endarterectomy ?Z98.890 - Other specified postprocedural states (ICD-10) Social History Narrative: SOCIAL HISTORY: He is single. Retired. One daughter living in [place] that he does not see much. No longer working at [email or web address]. No longer working for the [employer]. 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 HABITS: Sporadic walking for exercise. Sporadic smoking in the past. He denies smoking at this point. No alcohol or recreational drug use. FAMILY HISTORY: No changes. Parents both . He did not know them well. Father around 80 of unknown cause. Mother around 70 of unknown cancer. Three sisters all living with borderline diabetes otherwise healthy. What is your current living situation?: I presently have a place to live Problems where you live: no known problems Problems where you live details: N/A In the past 12 months, utilities in danger of being shut off: no In past 12 months, lack of transportation kept you from medical appts, meetings, work, or getting things needed for daily living: no In the past 12 mos, have been you worried that your food would run out before you had money to buy more?: never true In the past 12 mos, the food you bought just didn't last and you didn't have money to buy more?: never true Highest level of school completed/degree received: high school graduate Smoking Status: Former smoker What tobacco products do you use: cigarettes Smoking quit date/years: <= 15 years ago Do you use any of these nicotine containing products: None Second hand tobacco smoke exposure: No How often do you have a drink containing alcohol: never AUDIT-C Alcohol total score: 0 Non-prescribed substance use: marijuana (any form) How often does anyone, including family, friends and others, physically hurt you: never How often does anyone, including family, friends and others, insult or talk down to you: never How often does anyone, including family, friends and others, threaten you with harm: never How often does anyone, including family, friends and others, scream or curse at you: never service: Yes Exam Narrative: Exam Narrative: Well-nourished well-developed patient in no acute distress. Alert and oriented. Answers questions appropriately. Mood and affect are appropriate. Thoughts are goal oriented and rational. No tangential or magical thinking noted. Patient speaks in full sentences without needing to catch his breath. HEENT: Normocephalic atraumatic. Extraocular muscles are intact. Conjunctivae are moist without any icterus noted. Moist mucous membranes. Abdomen: Soft with normal bowel sounds. Skin: Well perfused without any obvious rashes. Const: Vital Signs, click to edit/add: Vital Signs - 24 hr 10/02/24 15:26 Temperature 98.3 F Pulse Rate [Pulse Oximeter] 85 Respiratory Rate 16 Blood Pressure [Ri ght Upper Arm] 166/76 H Pulse Oximetry 98 Oxygen Delivery Me thod Room Air Course Course ED Course: Catheter was flushed in the ED, blood clot removed and normal function was regained. Vital Signs Vital signs: Initial Vital Signs Temperature 98.3 F 10/02/24 15:26 Temperature Source Temporal Artery Scan 10/02/24 15: Pulse Rate 85 10/02/24 15:26 Respiratory Rate 16 10/02/24 15:26 Blood Pressure 166/76 H 10/02/24 15:26 Blood Pressure Mean 106 H 10/02/24 15:26 Blood Pressure Position Sitting 10/02/24 15:26 Pulse Oximetry 98 10/02/24 15:26 Oxygen Delivery Method Room Air 10/02/24 15:26 Vital Signs Temperature 98.3 F 10/02/24 15:26 Pulse Rate 85 10/02/24 15:26 Respiratory Rate 16 10/02/24 15:26 Blood Pressure 166/76 H 10/02/24 15:26 Pulse Oximetry 98 10/02/24 15:26 Oxygen Delivery Method Room Air 10/02/24 15:26 Temperature 98.3 F 10/02/24 15:26 Pulse Rate 85 10/02/24 15:26 Respiratory Rate 16 10/02/24 15:26 Blood Pressure 166/76 H 10/02/24 15:26 Pulse Oximetry 98 10/02/24 15:26 Oxygen Delivery Method Room Air 10/02/24 15:26 Medical Decision Making MDM Narrative Medical decision making narrative: Malfunctioning catheter, treated per above. Discharge Plan Discharge Clinical Impression: Complication of Fragoso catheter Patient Disposition: Home, Self-Care Condition: Improved Additional Instructions: Follow-up with urology as scheduled. Return back to ER as needed. You may need catheter change to a larger size as a result of the small clots that continue to settle into the catheter. Prescriptions: No Action nitrofurantoin monohyd/m-cryst 100 mg capsule 100 mg PO BID mupirocin 2 % ointment 1 applic topical TID PRN amlodipine 10 mg tablet 10 mg PO DAILY Qty: 90 3RF atorvastatin 40 mg tablet 40 mg PO HS Qty: 90 3RF digoxin 125 mcg (0.125 mg) tablet 125 mcg PO DAILY Qty: 30 0RF glipizide 10 mg tablet extended release 24hr 10 mg PO DAILY Qty: 90 3RF lisinopril 10 mg tablet 10 mg PO DAILY Qty: 90 3RF metformin 500 mg tablet extended release 24 hr 1,000 mg PO QDAY Qty: 180 3RF epinephrine 0.3 mg/0.3 mL auto-injector 0.3 ml IM .As Needed as needed PRN (Reason: anaphylaxis) Qty: 2 0RF diltiazem HCl 60 mg capsule,extended release 12 hr 60 mg PO BID Qty: 60 2RF Follow Up/Referrals: Santi Juarez MD [Primary Care Provider] - Stand Alone Forms: [facility] Info Instructions
== END 2024-10-02 16:14 | disposition home or self-care (01) ==
LOC: ED 15:39
PROVIDERS: Emergency Provider Family Medicine; PCP Family Medicine
DX: T83.091A Other mechanical complication of indwelling urethral catheter, initial encounter (principal)
CPT/HCPCS: 99283

== ENCOUNTER 2024-10-03 10:16 | Inpatient (IN) | payer MEDICARE, BC, SELFPAY ==
[2024-10-03] VITALS (17 sets, daily range): BP systolic 151–197; BP diastolic 66–109; PULSE 55–101; RESP 16–22; TEMP 36.3–37.2; O2SAT 95–99; BMI 23.1; BMI 22.2
--- OUTSIDE RECORDS SUMMARY | 2024-10-03 10:18 | XMS_ITS | Clinical Summary ---
Author Organization [place] Address [address] [place] [address] Care Team Providers Care Tar Heat Exchanger Cleaner Name Role Phone Guero Hutchinson MD Primary [...] on file Legal Sex Male 3:05 AM BAKERY ASSISTANT Gender Identity Not on file Sexual Orientation Not on file Last Filed Vital Signs Vital Sign Reading Time Taken Comments Blood Pressure 122/78 09/10/2017 9:11 AM BAKERY ASSISTANT Pulse 70 09/10/2017 9:11 AM BAKERY ASSISTANT Temperature 36.7 C (98 F) 03/26/2013 9:28 AM CDT Respiratory Rate 18 03/26/2013 9:28 AM CDT Oxygen Saturation 98% 03/26/2013 9:28 AM CDT Inhaled Oxygen Concentration - - Weight 106.6 kg (235 lb) 09/10/2017 9:11 AM BAKERY ASSISTANT Height 188 cm (6' 2) 09/10/2017 9:11 AM BAKERY ASSISTANT Body Mass Index 30.17 09/10/2017 9:11 AM BAKERY ASSISTANT Plan of Treatment Not on file Insurance MEDICARE Care Teams Tar Heat Exchanger Cleaner Relationship Specialty Start Date End Date Guero Hutchinson MD [address] [place] [address] [place] [id number] PCP - General Urology 11/14/15
--- OUTSIDE RECORDS SUMMARY | 2024-10-03 10:18 | XMS_ITS | Clinical Summary ---
Author Organization [facility] Address [address] [place] [id number] Care Team Providers Care Aerophysicist Name Role Phone Santi Juarez MD Primary Care Provider [phone] Allergies Active Allergy Reactions Criticality Noted Date [...] Department Care Team Description 09/24/2024 Transcribe Orders [facility] [address] [place] [address] Doug Dia MD 09/23/2024 Transcribe Orders [facility] [place] [phone] Shaun Baer MD 08/28/2024 3:00 PM SODIUM CHLORITE OPERATOR Ancillary Procedure [facility] [address] [place] [address] 08/27/2024 Telephone [facility] [address] [place], [place] [id number] Harvey Gonzalez MD from Last 3 Months [...] on file Legal Sex Male 7:26 PM SODIUM CHLORITE OPERATOR Gender Identity Not on file Sexual [...] st Contact Info) Description 10/08/2024 10:00 AM SODIUM CHLORITE OPERATOR Office Visit [facility] [address] [place] [address] Alton Mayes MD [address] [facility] [address] [place] [address] 10/13/2024 10:20 AM SODIUM CHLORITE OPERATOR Office Visit [facility] [address] [place] [phone] Doug Dia MD [address] [place] [address] Health Maintenance Due Date Last Done Comments [...] history exists Medical Devices Implanted Type [employer] Associate Device Identifier Shelf Expiration Date Model / Serial / Lot Tissue Pericardium 0.8x8cm Xenosure - [id number] Implanted:Qty: 1 on 01/03/2021 by Cesar Jacobs MD at [facility] Right: Carotid [employer]tery [employer] 08/08/2026 0.8P8 / / [id number] Procedures Procedure Name Priority Date/Time Associated Diagnosis Comments ECHO TTE COMPLETE WO CONTRAST Routine 08/28/2024 1:07 PM SODIUM CHLORITE OPERATOR New onset a-fib (HC) COLONOSCOPY 04/03/2023 9:22 AM CDT from Last 3 Months or Most Recently Relevant to Health Maintenance Results * ECHO TTE COMPLETE WO CONTRAST (08/28/2024 1:07 PM SODIUM CHLORITE OPERATOR) AORTIC VALVE MEAN PG 5 mmHg EJECTION FRACTION 67 % PEAK TR VELOCITY 2.7 m/s LVEDD 3.8 cm EJECTION FRACTION 60 - 65% Anatomical Region Laterality Modality Ultrasound 08/28/2024 10:4 4 AM SODIUM CHLORITE OPERATOR Narrative 08/28/2024 1:14 PM SODIUM CHLORITE OPERATOR ECHOCARDIOGRAM SURESH MOLINA : 1950 74 years Study Date: 08/28/2024 10:44:58 AM Gender: M BP: 179/93 mmHg Height: 188.00 cm BSA: 2.10 m Weight: 84.00 kg Tech: SEN Referring MD: LEOPOLDO MUÑIZ Site: [facility] Reading Location: Mobile- Patient Location: [...] . This study was interpreted by an [facility] accredited facility. CC: [facility] (med records) [facility], Med/Surg - IP [facility]. Final Procedure Note Jony Donato MD - 08/28/2024 ECHOCARDIOGRAM SURESH MOLINA : 1950 74 years Study Date: 08/28/2024 10:44:58 AM Gender: M BP: 179/93 mmHg Height: 188.00 cm BSA: 2.10 m Weight: 84.00 kg Tech: NWA Referring MD: LEOPOLDO MUÑIZ Site: [facility] Reading Location: Mobile-IP Patient Location: [...] interpreted by an [facility] accredited facility. CC: [facility] (med records) [facility], Med/Surg - IP [facility]. Final Leopoldo OLIVEIRA ECHO ORD Final Result [...] candidate for conscious sedation. The endoscope [id number] was passed through the anus andadvanced to [...] 9:22 AM Procedure Code(s): --- Professional --- 17063, Colonoscopy, flexible; with removalof tumor(s), polyp(s), or other lesion(s) bysnare technique Diagnosis Code(s): --- Professional --- Z86.010, Personal history of colonicpolyps D12.2, Benign neoplasm of ascending colon K57.30, Diverticulosis of large intestine without perforation or abscess withoutbleeding CPT copyright 2021 [employer]. All rights reserved. The codes documented in this report are preliminary and upon medical biller coder reviewmay be revised to meet current compliance requirements. Scope In: 10:44:45 AM Scope Withdrawal Time 0 hours 10 minutes 40 seconds Scope Out: 10:59:10 AM us Moi Lui MD PROCEDURE ORD Final Res ult from Last 3 Months or Most Recently Relevant to Health Maintenance Insurance PREFERRED ONE [facility] [place] [address] MEDICARE PART B HB ONLY [facility] MEDICARE [place] ONLY MEDICARE PART A HB ONLY Advance Directives * Full Code (Latest Code Status on File) Date Activated Date Inactivated Comments 01/03/2021 6:00 AM 01/04/2021 1:54 PM Question Answer Comments Code Status Discussion: Not Discussed Care Teams Aerophysicist Relationship Specialty Start Date End Date Santi Juarez MD [address] [place] [address] PCP - General Family Practice 12/07/20
--- NOTE | 2024-10-03 11:07 | ED_ITS ---
HPI - General Adult General Date Seen: 10/03/24 Chief complaint: Urogenital Problems, Male Stated complaint: Catheter Leaking Time Seen by Provider: 10/03/24 11:07 History of Present Illness HPI narrative: 74-year-old male with a chronic indwelling Fragoso catheter. He apparently had his catheter changed last week. He was seen in the ER yesterday because his catheter was plugged that he was leaking urine through his urethra around the catheter but not into his bag. Per records the catheter was flushed in the ER, blood clots were removed and then the catheter was functioning normally. According to ER records from yesterday he had actually been seen by [place] [facility] prior to coming to the ER to have his catheter flushed at that time as well. He does not take any blood thinners. He does have hypertension, diabetes, chronic hyponatremia, prior stroke, , atrial fibrillation (not on stroke prophylaxis), history of bladder cancer. Patient reports that he 1st developed urinary retention and gross hematuria last month, in August. He had come here to the ER [place]. On his 1st visit he had a Fragoso catheter placed and was sent home. He then obstructed the lumen of his Fragoso catheter so came back again. He ultimately got admitted to the hospital here in [place] last month. He spent 2 days in the hospital getting continuous bladder irrigation before the hematuria cleared. He is able to discharge home from the hospital with his triple-lumen catheter in place. He had a follow-up this week, on Saturday, 5 days ago, with [place] [facility] at their clinic at [facility] in [place]. They apparently pulled out his triple-lumen catheter, performed a cystoscopy (presumably was normal? ) And placed a smaller 18 Polish catheter. They plan to see him back again next week on Saturday or Saturday for a recheck. Patient noted that he had gross hematuria that obstructed his catheter, prompting a visit to the ER yesterday. Catheter was flushed and was draining properly so he was discharged home. When he woke this morning again catheter was again obstructed and he was draining bloody urine through his urethra around the outside of the catheter. He came back to the ER today because of recurrent catheter obstruction. He is not having bladder pain. No fever or chills. No flank pain. No vomiting. He is not currently on antibiotics. He does not take any blood thinners. Related Data Home Medications ?Medication ?Instructions ?Recorded ?Confirmed mupirocin 2 % topical ointment 1 applic topical TID PRN 09/28/24 10/03/24 nitrofurantoin 100 mg PO BID 09/28/24 10/03/24 monohydrate/macrocrystals 100 mg capsule Previous Rx's ?Medication ?Instructions ?Recorded epinephrine 0.3 mg/0.3 mL 0.3 ml IM .As Needed as needed PRN 07/03/23 injection, auto-injector anaphylaxis #2 ea diltiazem HCl 60 mg 60 mg PO BID #60 caps 09/01/24 capsule,extended release 12 hr amlodipine 10 mg tablet 10 mg PO DAILY #90 tabs 09/28/24 atorvastatin 40 mg tablet 40 mg PO HS #90 tabs 09/28/24 digoxin 125 mcg (0.125 mg) tablet 125 mcg PO DAILY #30 tabs 09/28/24 glipizide 10 mg tablet, extended 10 mg PO DAILY #90 tabs 09/28/24 release 24 hr lisinopril 10 mg tablet 10 mg PO DAILY #90 tabs 09/28/24 metformin 500 mg tablet,extended 1,000 mg (2 x 500 mg) PO QDAY #180 09/28/24 release 24 hr tabs Allergies Allergy/AdvReac Type Severity Reaction Status Date / Time bee venom protein (honey bee) Allergy Verified 10/03/24 10:43 Penicillins Allergy Verified 10/03/24 10:43 tamsulosin (From Flomax) AdvReac Intermediate orthostatic Verified 10/03/24 10:43 hypotension PFSH PFSH Medical History Gout ?M10.9 - Gout, unspecified (ICD-10) Hypertension ?I10 - Essential (primary) hypertension (ICD-10) Diabetes mellitus ?E11.9 - Type 2 diabetes mellitus without complications (ICD-10) Foot pain ?M79.673 - Pain in unspecified foot (ICD-10) Abnormal gait ?R26.9 - Unspecified abnormalities of gait and mobility (ICD-10) Surgical History History of amputation of toe ?Z89.429 - Acquired absence of other toe(s), unspecified side (ICD-10) History of colonoscopy ?Z98.890 - Other specified postprocedural states (ICD-10) History of tonsillectomy (1969) ?Z90.89 - Acquired absence of other organs (ICD-10) History of right-sided carotid endarterectomy ?Z98.890 - Other specified postprocedural states (ICD-10) Social History Narrative: SOCIAL HISTORY: He is single. Retired. One daughter living in [facility] that he does not see much. No longer working at [employer]. No longer working for the [employer]. 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 HABITS: Sporadic walking for exercise. Sporadic smoking in the past. He denies smoking at this point. No alcohol or recreational drug use. FAMILY HISTORY: No changes. Parents both . He did not know them well. Father around 80 of unknown cause. Mother around 70 of unknown cancer. Three sisters all living with borderline diabetes otherwise healthy. What is your current living situation?: I presently have a place to live Problems where you live: no known problems Problems where you live details: N/A In the past 12 months, utilities in danger of being shut off: no In past 12 months, lack of transportation kept you from medical appts, meetings, work, or getting things needed for daily living: no In the past 12 mos, have been you worried that your food would run out before you had money to buy more?: never true In the past 12 mos, the food you bought just didn't last and you didn't have money to buy more?: never true Highest level of school completed/degree received: high school graduate Smoking Status: Former smoker What tobacco products do you use: cigarettes Smoking quit date/years: <= 15 years ago Do you use any of these nicotine containing products: None Second hand tobacco smoke exposure: No How often do you have a drink containing alcohol: never AUDIT-C Alcohol total score: 0 Non-prescribed substance use: marijuana (any form) How often does anyone, including family, friends and others, physically hurt you : never How often does anyone, including family, friends and others, insult or talk down to you: never How often does anyone, including family, friends and others, threaten you with harm: never How often does anyone, including family, friends and others, scream or curse at you: never service: Yes Exam Narrative: Exam Narrative: Constitutional: Appears well-developed and well-nourished. Alert. Conversant. Non toxic. HENT: Head: Atraumatic. Nose: Nose normal. Mouth/Throat: Oral mucosa is clear and moist. no trismus. Eyes: Conjunctivae normal. EOM normal. Pupils equal, round, and reactive to light. No scleral icterus. Neck: Normal range of motion. Neck supple. No tracheal deviation present. Cardiovascular: Normal rate, regular rhythm. No gallop. No friction rub. No murmur heard. Normal pink warm skin. Normal capillary refill per Pulmonary/Chest: Effort normal. No stridor. No respiratory distress. No wheezes. No rales. No rhonchi . No tenderness. Abdominal: Soft. Bowel sounds normal. No distension. No mass. No tenderness. No rebound. No guarding. No CVA tenderness. : Normal uncircumcised penis. Glans any urethral meatus are normal. There was an [address] There is dark red bloody urine in the catheter tubing and bag without any clots. The catheter is not draining and appears to be obstructed proximally inside the bladder. Musculoskeletal: RUE: Normal range of motion. No tenderness. No deformity LUE: Normal range of motion. No tenderness. No deformity RLE: Normal range of motion. No edema. No tenderness. No deformity LLE: Normal range of motion. No edema. No tenderness. No deformity Neurological: Alert and oriented to person, place, and time. Normal strength. CN II-VII intact. No sensory deficit. GCS eye subscore is 4. GCS verbal subscore is 5. GCS motor subscore is 6. Normal coordination Skin: Skin is warm and dry. No rash noted. No pallor. Normal capillary refill. Psychiatric: Normal mood. Normal affect. Const: Vital Signs, click to edit/add: Vital Signs - 24 hr 10/03/24 10:38 10/03/24 12:28 10/03/24 12:29 Temperature 98.9 F Pulse Rate 59 L 65 Pulse Rate [Right Pulse Oximeter] 75 Respiratory Rate 18 16 Blood Pressure 189/86 H Blood Pressure [Ri ght Upper Arm] 151/66 H Pulse Oximetry 97 97 98 Oxygen Delivery Me thod Room Air Room Air 10/03/24 12:30 10/03/24 12:45 10/03/24 13:00 Temperature Pulse Rate 66 57 L 59 L Pulse Rate [Right Pulse Oximeter] Respiratory Rate 16 Blood Pressure 197/97 H Blood Pressure [Ri ght Upper Arm] Pulse Oximetry 99 98 98 Oxygen Delivery Me thod Room Air 10/03/24 13:02 Temperature Pulse Rate 64 Pulse Rate [Right Pulse Oximeter] Respiratory Rate Blood Pressure 193/97 H Blood Pressure [Ri ght Upper Arm] Pulse Oximetry 98 Oxygen Delivery Me thod Course Course ED Course: Triple-lumen catheter placed. With CBI, Nurses report that he is draining some frankly bloody urine, by my inspection the urine appears to be blood tinged, darker than pink lemonade, but not deeply bloody. Triple-lumen catheter seems to be draining well. Reevaluation(s) Reevaluation #1: Discussed with Urology, the on-call urologist for [place] [facility]. With stable hemoglobin, normal coags, lack of anticoagulation, normal vital signs, the relatives recommends that we can keep the patient here at [facility] for continuous bladder irrigation. However if he deteriorates her becomes hypotensive, hemoglobin drops, urine becomes dark tinged, or persistently bloody, he would recommend transfer to a hospital where urology is available. Hopefully though, if the urine clears overnight as it did last month, patient will be stable for discharge from hospital and can follow up in clinic with Urology this week on Saturday or Saturday as already scheduled. Reevaluation #2: Discussed with hospitalist, Dr. Simon, who graciously agrees to admit Vital Signs Vital signs: Initial Vital Signs Temperature 98.9 F 10/03/24 10:38 Temperature Source Temporal Artery Scan 10/03/24 10:38 Pulse Rate 75 10/03/24 10:38 Pulse Rhythm Regular 10/03/24 10:38 Pulse Strength 3+ Normal 10/03/24 10:38 Respiratory Rate 18 10/03/24 10:38 Blood Pressure 151/66 H 10/03/24 10:38 Blood Pressure Mean 94 10/03/24 10:38 Blood Pressure Position Sitting 10/03/24 10:38 Pulse Oximetry 97 10/03/24 10:38 Oxygen Delivery Method Room Air 10/03/24 10:38 Vital Signs Temperature 98.9 F 10/03/24 10:38 Pulse Rate 75 10/03/24 10:38 Respiratory Rate 18 10/03/24 10:38 Blood Pressure 151/66 H 10/03/24 10:38 Pulse Oximetry 97 10/03/24 10:38 Oxygen Delivery Method Room Air 10/03/24 10:38 Temperature 98.9 F 10/03/24 10:38 Pulse Rate 64 10/03/24 13:02 Respiratory Rate 16 10/03/24 13:00 Blood Pressure 193/97 H 10/03/24 13:02 Pulse Oximetry 98 10/03/24 13:02 Oxygen Delivery Method Room Air 10/03/24 13:00 Medical Decision Making MDM Narrative Medical decision making narrative: 74-year-old male returns to the ER today with gross hematuria and obstruction of his Fragoso catheter (presumably by clots of blood in the catheter lumen). He had been seen here yesterday with similar and had his catheter irrigated. Presentation is similar to last month when he required hospitalization for continuous bladder irrigation. We did change the patient's Fragoso catheter to a triple-lumen catheter and set him up for continuous bladder irrigation. With irrigation of sterile saline he still putting out reddish tinge bloody urine but not a lot of clots. Laboratory workup shows normal white count, normal hemoglobin. Platelet count and INR are normal. He is not on any anticoagulants. Kidney function is normal with a BUN of 16 and a creatinine of 0.8. Previously low sodium is better today at 1:35 a.m.. Urinalysis shows hematuria but no pyuria or nitrite to suggest active infection. Will be admitted here to the hospital in [place] for continuous bladder irrigation through a triple-lumen catheter Lab Data Labs: Lab Results 10/03/24 10/03/24 Range/Units 11:34 12:25 WBC 8.25 (4.50-11.00) K/uL RBC 4.51 (4.30-5.90) m/uL Hgb 13.5 (13.5-17.5) gm/dL Hct 40.0 (37.0-53.0) % MCV 89 (80-100) fL MCH 30 (26-34) pg MCHC 34 (32-36) gm/dL RDW Coeff of Rodriguez 12.1 (11.5-15.5) % Plt Count 210 (140-440) K/uL Neut % (Auto) 68.9 (42.0-72.0) % Lymph % (Auto) 19.2 L (20-44) % [place] % (Auto) 8.5 (0.0-11.0) % Eos % (Auto) 2.9 (0.0-7.0) % Baso % (Auto) 0.4 (0.0-3.0) % Neut # (Auto) 5.69 (1.7-7.0) K/uL Lymph # (Auto) 1.60 (0.90-2.90) K/uL [place] # (Auto) 0.70 (0.00-0.90) K/UL Eos # (Auto) 0.24 (0.00-0.50) K/uL Baso # (Auto) 0.03 (0.00-0.30) K/uL Abs Immat Gran (auto) 0.01 (0.00-0.30) K/uL Imm/Tot Granulo (auto) 0.1 % INR 0.93 (0.91-1.10) Sodium 135 (135-149) mmol/L Potassium 4.4 (3.6-5.1) mmol/L Chloride 99 (96-114) mmol/L Carbon Dioxide 27 (20-32) mmol/L Anion Gap 9 (7-15) mEq/L BUN 16 (7-30) mg/dL Creatinine 0.8 (0.5-1.5) mg/dL Estimated Creat Clear 77.11 Estimated GFR 94 ml/min Glucose 232 H (60-115) mg/dL Calcium 9.3 (8.4-10.6) mg/dL Urine Color Red A (Yellow) Urine Appearance Turbid A (Clear) Urine pH >= 9.0 H (5.0-8.5) Ur Specific [place] 1.010 (1.000-1.030) Urine Protein 3+ A (Negative) Urine Glucose (UA) Trace A (Negative) Urine Ketones 3+ A (Negative) Urine Blood 3+ A (Negative) Urine Nitrite Negative (Negative) Urine Bilirubin 3+ A (Negative) Urine Urobilinogen >=8.0 A (0.2-1.0) Ur Leukocyte Esterase 3+ A (Negative) Urine RBC >100 A (0-2) Urine WBC 2-5 (0-5) Ur Squamous Epith Cells Few (None-Few) Urine Bacteria None (None) Discharge Plan Discharge Clinical Impression: Gross hematuria, Acute urinary retention Patient Disposition: Admitted As Observation
[2024-10-03 11:42] LABS: Basophils Absolute Auto 0.03 K/uL (0.00-0.30); Basophils Percent Auto 0.4 % (0.0-3.0); Eosinophils Absolute Auto 0.24 K/uL (0.00-0.50); Eosinophils Percent Auto 2.9 % (0.0-7.0); Hemoglobin* 13.5 gm/dL (13.5-17.5); Immature Granulocytes Abs Auto 0.01 K/uL (0.00-0.30); Immature Granulocytes Pct Auto 0.1 %; Lymphocytes Percent Auto 19.2 % (20-44); Mean Corpuscular HGB Conc 34 gm/dL (32-36); Mean Corpuscular Hemoglobin 30 pg (26-34); Mean Corpuscular Volume 89 fL (80-100); Monocytes Percent Auto 8.5 % (0.0-11.0); Neutrophils Absolute Auto 5.69 K/uL (1.7-7.0); Neutrophils Percent Auto 68.9 % (42.0-72.0); Platelet Count* 210 K/uL (140-440); RDW Coefficient of Variation % 12.1 % (11.5-15.5); Red Blood Count 4.51 m/uL (4.30-5.90); White Blood Count* 8.25 K/uL (4.50-11.00)
--- OUTSIDE RECORDS SUMMARY | 2024-10-03 11:42 | XMS_ITS | Clinical Summary ---
Author Organization [place] Address [address] 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 Gender Identity Not on file Sexual Orientation Not on file Last Filed Vital Signs Vital Sign Reading Time Taken Comments Blood Pressure 122/78 09/10/2017 9:11 AM TRACK BROOM OPERATOR Pulse 70 09/10/2017 9:11 AM TRACK BROOM OPERATOR Temperature 36.7 C (98 F) 03/26/2013 9:28 AM CDT Respiratory Rate 18 03/26/2013 9:28 AM CDT Oxygen Saturation 98% 03/26/2013 9:28 AM CDT Inhaled Oxygen Concentration - - Weight 106.6 kg (235 lb) 09/10/2017 9:11 AM TRACK BROOM OPERATOR Height 188 cm (6' 2) 09/10/2017 9:11 AM TRACK BROOM OPERATOR Body Mass Index 30.17 09/10/2017 9:11 AM TRACK BROOM OPERATOR Plan of Treatment Not on file Insurance MEDICARE Care Teams Cooker Loader Relationship Specialty Start Date End Date Guero Hutchinson MD [address] [place] [address] [place] [id number] PCP - General Urology 11/14/15
--- OUTSIDE RECORDS SUMMARY | 2024-10-03 11:42 | XMS_ITS | Clinical Summary ---
Author Organization [facility] Address [address] [place] [id number] Care Team Providers Care Construction Equipment Overhauler Name Role Phone Santi Juarez MD Primary [...] Department Care Team Description 09/24/2024 Transcribe Orders [facility] [address] [place] [address] Doug Dia MD 09/23/2024 Transcribe Orders [facility] [place] [phone] Shaun Baer MD 08/28/2024 3:00 PM RECLAMATION FURNACE OPERATOR Ancillary Procedure [facility] [address] [place] [address] 08/27/2024 Telephone [facility] [address] [place], [place] [id number] Harvey Gonzalez MD from Last 3 Months [...] on file Legal Sex Male 7:26 PM RECLAMATION FURNACE OPERATOR Gender Identity Not on file Sexual [...] st Contact Info) Description 10/08/2024 10:00 AM RECLAMATION FURNACE OPERATOR Office Visit [facility] [address] [place] [address] Alton Mayes MD [address] [facility] [address] [place] [address] 10/13/2024 10:20 AM RECLAMATION FURNACE OPERATOR Office Visit [facility] [address] [place] [address] Doug Dia MD [address] [place] [address] Health Maintenance Due Date Last Done Comments [...] history exists Medical Devices Implanted Type Area Project Product Manager Device Identifier Shelf Expiration Date Model / Serial / Lot Tissue Pericardium 0.8x8cm Xenosure - [id number] Implanted:Qty: 1 on 01/03/2021 by Cesar Jacobs MD at [facility] Right: Carotid Artery [employer] 08/08/2026 0.8P8 / / [id number] Procedures Procedure Name Priority Date/Time Associated Diagnosis Comments ECHO TTE COMPLETE WO CONTRAST Routine 08/28/2024 1:07 PM RECLAMATION FURNACE OPERATOR New onset a-fib (HC) COLONOSCOPY 04/03/2023 9:22 AM CDT from Last 3 Months or Most Recently Relevant to Health Maintenance Results * ECHO TTE COMPLETE WO CONTRAST (08/28/2024 1:07 PM RECLAMATION FURNACE OPERATOR) AORTIC VALVE MEAN PG 5 mmHg EJECTION FRACTION 67 % PEAK TR VELOCITY 2.7 m/s LVEDD 3.8 cm EJECTION FRACTION 60 - 65% Anatomical Region Laterality Modality Ultrasound 08/28/2024 10:4 4 AM RECLAMATION FURNACE OPERATOR Narrative 08/28/2024 1:14 PM RECLAMATION FURNACE OPERATOR ECHOCARDIOGRAM SURESH MOLINA : 1950 74 years Study Date: 08/28/2024 10:44:58 AM Gender: M BP: 179/93 mmHg Height: 188.00 cm BSA: 2.10 m Weight: 84.00 kg Tech: SEN Referring MD: LEOPOLDO MUÑIZ Site: [facility] Reading Location: Mobile- Patient Location: [...] . This study was interpreted by an [facility] accredited facility. CC: [facility] (med records) [facility], Med/Surg - IP [facility]. Final Procedure Note Jony Donato MD - 08/28/2024 ECHOCARDIOGRAM SURESH MOLINA : 1950 74 years Study Date: 08/28/2024 10:44:58 AM Gender: M BP: 179/93 mmHg Height: 188.00 cm BSA: 2.10 m Weight: 84.00 kg Tech: NWA Referring MD: LEOPOLDO MUÑIZ Site: [facility] Reading Location: Mobile-IP Patient Location: [...] interpreted by an [employer] accredited facility. CC: [facility] (med records) [facility], Med/Surg - IP [facility]. Final Leopoldo OLIVEIRA ECHO ORD Final Result [...] candidate for conscious sedation. The endoscope [id number] was passed through the anus andadvanced to [...] 9:22 AM Procedure Code(s): --- Professional --- 59758, Colonoscopy, flexible; with removalof tumor(s), polyp(s), or other lesion(s) bysnare technique Diagnosis Code(s): --- Professional --- Z86.010, Personal history of colonicpolyps D12.2, Benign neoplasm of ascending colon K57.30, Diverticulosis of large intestine without perforation or abscess withoutbleeding CPT copyright 2021 [employer]. All rights reserved. The codes documented in this report are preliminary and upon button reclaimer reviewmay be revised to meet current compliance requirements. Scope In: 10:44:45 AM Scope Withdrawal Time 0 hours 10 minutes 40 seconds Scope Out: 10:59:10 AM us Moi Lui MD PROCEDURE ORD Final Res ult from Last 3 Months or Most Recently Relevant to Health Maintenance Insurance PREFERRED ONE [facility] MEDICARE PART B HB ONLY [facility] MEDICARE [place] ONLY MEDICARE PART A HB ONLY Advance Directives * Full Code (Latest Code Status on File) Date Activated Date Inactivated Comments 01/03/2021 6:00 AM 01/04/2021 1:54 PM Question Answer Comments Code Status Discussion: Not Discussed Care Teams Construction Equipment Overhauler Relationship Specialty Start Date End Date Santi Juarez MD [address] [place] [phone] PCP - General Family Practice 12/07/20
[2024-10-03 11:47] LABS: Slide Review Reflex No
[2024-10-03 12:04] LABS: Chloride* 99 mmol/L (96-114); Potassium* 4.4 mmol/L (3.6-5.1); Sodium* 135 mmol/L (135-149)
[2024-10-03 12:07] LABS: Anion Gap 9 mEq/L (7-15); Carbon Dioxide* 27 mmol/L (20-32); Creatinine* 0.8 mg/dL (0.5-1.5); Est. Creatinine Clearance* 77.11; Estimated Glomerular Filt Rate 94 ml/min; INR 0.93 (0.91-1.10); Prothrombin Time 13.2 Seconds
[2024-10-03 12:08] LABS: Blood Urea Nitrogen* 16 mg/dL (7-30); Calcium* 9.3 mg/dL (8.4-10.6); Glucose* 232 mg/dL (60-115)
[2024-10-03 12:55] LABS: Appearance Urine Turbid (Clear); Bilirubin Urine 3+ (Negative); Blood Urine 3+ (Negative); Color Urine Red (Yellow); Glucose Urine Trace (Negative); Ketones Urine 3+ (Negative); Leukocyte Esterase Urine 3+ (Negative); Nitrite Urine Negative (Negative); Protein Urine 3+ (Negative); Urobilinogen Urine >=8.0 (0.2-1.0)
[2024-10-03 13:12] LABS: pH Urine >= 9.0 (5.0-8.5)
[2024-10-03 13:13] LABS: RBC Urine >100 (0-2); Squamous Epithelial Cell Urine Few (None-Few)
--- NOTE | 2024-10-03 16:47 | PM.IMHP1 ---
Hospitalist- H&P: DUDLEY History of Present Illness Date Seen: 10/03/24 Chief complaint: Catheter Leaking Narrative: Suresh Martinez is a [id number] male with a chronic indwelling Fragoso catheter. He apparently had his catheter changed last week. He was seen in the ER yesterday because his catheter was plugged that he was leaking urine through his urethra around the catheter but not into his bag. Per records the catheter was flushed in the ER, blood clots were removed and then the catheter was functioning normally. According to ER records from yesterday he had actually been seen by [place] [facility] prior to coming to the ER to have his catheter flushed at that time as well. He does not take any blood thinners. He does have hypertension, diabetes, chronic hyponatremia, prior stroke, , atrial fibrillation (not on stroke prophylaxis), history of bladder cancer. Patient reports that he 1st developed urinary retention and gross hematuria last month, in August. He had come here to the ER [place]. On his 1st visit he had a Fragoso catheter placed and was sent home. He then obstructed the lumen of his Fragoso catheter so came back again. He ultimately got admitted to the hospital here in [place] last month. He spent 2 days in the hospital getting continuous bladder irrigation before the hematuria cleared. He is able to discharge home from the hospital with his triple-lumen catheter in place. He had a follow-up this week, on Saturday, 5 days ago, with [place] [facility] at their clinic at [facility] in [place]. They apparently pulled out his triple-lumen catheter, performed a cystoscopy (presumably was normal? ) And placed a smaller 18 [place] catheter. They plan to see him back again next week on Saturday or Saturday for a recheck. Patient noted that he had gross hematuria that obstructed his catheter, prompting a visit to the ER yesterday. Catheter was flushed and was draining properly so he was discharged home. When he woke this morning again catheter was again obstructed and he was draining bloody urine through his urethra around the outside of the catheter. He came back to the ER today because of recurrent catheter obstruction. He is not having bladder pain. No fever or chills. No flank pain. No vomiting. He is not currently on antibiotics. He does not take any blood thinners. Had AFib with RVR 1 month ago. Spontaneously converted. Started on Eliquis and then stopped when he got hematuria. Other than suprapubic pain he reports feeling well. He is not aware of any palpitations, shortness of breath, dizziness, chest pain. Review of Systems Narrative: He reports constipation for which he takes senna every other day. Has a bowel movement about once every 3 days. [facility] Medical History (Updated 10/03/24 @ 17:30 by Leo Chong MD) Gout ?M10.9 - Gout, unspecified (ICD-10) Hypertension ?I10 - Essential (primary) hypertension (ICD-10) Diabetes mellitus ?E11.9 - Type 2 diabetes mellitus without complications (ICD-10) Foot pain ?M79.673 - Pain in unspecified foot (ICD-10) Abnormal gait ?R26.9 - Unspecified abnormalities of gait and mobility (ICD-10) Surgical History History of amputation of toe ?Z89.429 - Acquired absence of other toe(s), unspecified side (ICD-10) History of colonoscopy ?Z98.890 - Other specified postprocedural states (ICD-10) History of tonsillectomy (1969) ?Z90.89 - Acquired absence of other organs (ICD-10) History of right-sided carotid endarterectomy ?Z98.890 - Other specified postprocedural states (ICD-10) Social History (Updated 10/03/24 @ 17:24 by Leo Chong MD) Narrative: SOCIAL HISTORY: He is single. Retired. One daughter living in [facility] that he does not see much. No longer working at [employer]. No longer working for the [email or web address]. 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 Code status is full. He does not want prolonged life support. His nephew, Adrien Araiza, of [place] is [facility] power of assistant district attorney HABITS: Sporadic walking for exercise. Sporadic smoking in the past. He denies smoking at this point. No alcohol or recreational drug use. FAMILY HISTORY: No changes. Parents both . He did not know them well. Father around 80 of unknown cause. Mother around 70 of unknown cancer. Three sisters all living with borderline diabetes otherwise healthy. What is your current living situation?: I presently have a place to live Problems where you live: no known problems Problems where you live details: N/A In the past 12 months, utilities in danger of being shut off: no In past 12 months, lack of transportation kept you from medical appts, meetings, work, or getting things needed for daily living: no In the past 12 mos, have been you worried that your food would run out before you had money to buy more?: never true In the past 12 mos, the food you bought just didn't last and you didn't have money to buy more?: never true Highest level of school completed/degree received: high school graduate Smoking Status: Former smoker What tobacco products do you use: cigarettes Smoking quit date/years: <= 15 years ago Do you use any of these nicotine containing products: None Second hand tobacco smoke exposure: No How often do you have a drink containing alcohol: never AUDIT-C Alcohol total score: 0 Non-prescribed substance use: marijuana (any form) How often does anyone, including family, friends and others, physically hurt you: never How often does anyone, including family, friends and others, insult or talk down to you: never How often does anyone, including family, friends and others, threaten you with harm: never How often does anyone, including family, friends and others, scream or curse at you: never service: Yes Meds Home Medications and Allergies Home Medications ?Medication ?Instructions ?Recorded ?Confirmed ?Type mupirocin 2 % topical ointment 1 applic topical TID PRN 09/28/24 10/03/24 History nitrofurantoin 100 mg PO BID 09/28/24 10/03/24 History monohydrate/macrocrystals 100 mg capsule Allergies Allergy/AdvReac Type Severity Reaction Status Date / Time bee venom protein (honey bee) Allergy Verified 10/03/24 10:43 Penicillins Allergy Verified 10/03/24 10:43 tamsulosin (From Flomax) AdvReac Intermediate orthostatic Verified 10/03/24 10:43 hypotension Exam Narrative: Exam Narrative: He is alert and appears in no distress. He gives his own history though is unable to give significant details about recent events including his current medications, evaluation and treatment of his chronic lumbar radiculopathy. Speech is fluent. He has no facial asymmetry. Eyes are normal. Oropharynx is normal. Neck is supple without mass or adenopathy. Respirations are clear to auscultation. Cardiovascular: S1, S2, regular rate and rhythm. No murmur gallop or rub. Abdomen: Bowel sounds active. Abdomen is soft with mild to moderate suprapubic tenderness without mass or fullness. External genitalia normal. Three way irrigation catheter in place draining grossly bloody urine. Lower extremities with intact pulses and sensation and motion. Const: Vital Signs, click to edit/add: Vital Signs - 24 hr 10/03/24 10:38 10/03/24 12:28 10/03/24 12:29 Temperature 98.9 F Pulse Rate 59 L 65 Pulse Rate [Left R adial] Pulse Rate [Right Pulse Oximeter] 75 Respiratory Rate 18 16 Blood Pressure 189/86 H Blood Pressure [Le ft Arm] Blood Pressure [Ri ght Upper Arm] 151/66 H Pulse Oximetry 97 97 98 [facility] Room Air 10/03/24 12:30 10/03/24 12:45 10/03/24 13:00 Temperature Pulse Rate 66 57 L 59 L Pulse Rate [Left R adial] Pulse Rate [Right Pulse Oximeter] Respiratory Rate 16 Blood Pressure 197/97 H Blood Pressure [Le ft Arm] Blood Pressure [Ri ght Upper Arm] Pulse Oximetry 99 98 98 [facility] 10/03/24 13:02 10/03/24 13:03 10/03/24 13:15 Temperature Pulse Rate 64 58 L 61 Pulse Rate [Left R adial] Pulse Rate [Right Pulse Oximeter] Respiratory Rate Blood Pressure 193/97 H Blood Pressure [Le ft Arm] Blood Pressure [Ri ght Upper Arm] Pulse Oximetry 98 97 99 Oxygen Delivery Me thod 10/03/24 13:31 10/03/24 13:45 10/03/24 14:00 Temperature Pulse Rate 60 55 L 60 Pulse Rate [Left R adial] Pulse Rate [Right Pulse Oximeter] Respiratory Rate 16 Blood Pressure 189/87 H Blood Pressure [Le ft Arm] Blood Pressure [Ri ght Upper Arm] Pulse Oximetry 97 99 96 [facility] 10/03/24 14:02 10/03/24 14:15 10/03/24 14:56 Temperature 97.3 F L Pulse Rate 59 L 62 Pulse Rate [Left R adial] 63 Pulse Rate [Right Pulse Oximeter] Respiratory Rate 16 Blood Pressure 189/90 H Blood Pressure [Le ft Arm] 183/109 H Blood Pressure [Ri ght Upper Arm] Pulse Oximetry 98 95 98 Oxygen Delivery Me thod Room Air Documenting provider has reviewed patient's vital signs: yes Hospitalist - H&P: Result Labs Labs: Short CBC 10/03/24 Range/Units 11:34 WBC 8.25 (4.50-11.00) K/uL Hgb 13.5 (13.5-17.5) gm/dL Hct 40.0 (37.0-53.0) % Plt Count 210 (140-440) K/uL BMP 10/03/24 11:34 Sodium 135 Potassium 4.4 Chloride 99 Carbon Dioxide 27 BUN 16 Creatinine 0.8 Glucose 232 H Calcium 9.3 Urine 10/03/24 Range/Units 12:25 Urine Color Red A (Yellow) Urine Appearance Turbid A (Clear) Urine pH >= 9.0 H (5.0-8.5) Ur Specific [place] 1.010 (1.000-1.030) Urine Protein 3+ A (Negative) Urine Glucose (UA) Trace A (Negative) Assessment and Plan Assessment and plan (1) Gross hematuria: Problem comment: - has h/o bladder cancer in 2013. No known recurrence. Has been getting evaluation for lumbar radiculopathy going down his right leg for several months. August 22 and before seen for back pain with pain and weakness in the right leg August 26 seen for urinary retention and Fragoso catheter was placed August 27 seen for AFib with RVR. Started on diltiazem and digoxin and Eliquis. Eliquis discontinued when hematuria developed. Required bladder irrigation to resolve the hematuria. September 29 seen by his urologist. Cystoscopy was unremarkable, no obvious site of bleeding or apparent tumor. Urologist suspects his bleeding could be from rapid decompression of his distended bladder with catheter placement. CT abdomen pelvis on September 23: Impression: Prostatomegaly. The bladder is partially decompressed by Fragoso catheter and demonstrates significant eccentric anterior wall thickening. Findings could be seen with a chronic UTI/cystitis secondary to outlet obstruction, but can also be correlated for neoplasm. No other findings seen to account for patient`s reported symptoms. Status: Acute (2) Acute urinary retention: Problem comment: -acute on chronic recurrent -UC from 08/22 and 08/26 unremarkable Has BPH. Trial of Flomax discontinued due to dizziness. Patient also had AFib with RVR at that time. Subsequently has developed gross hematuria with clots causing catheter obstruction requiring irrigation of the bladder. Repeat trial of tamsulosin to see if he can tolerate it for his BPH. Ongoing urology evaluation for urodynamics, PSA, Status: Acute (3) Atrial fibrillation with RVR: Problem comment: Paroxysmal AFib. Currently in sinus rhythm. -new onset AFib with RVR, converted 08/27/24 while on diltiazem and digoxin. Completed dig load. Continue oral diltiazem and oral digoxin. Check dig level in 1 week. ECHO as above. -started on Eliquis 08/27/24, a.m. Held now for hematuria. Will need definitive diagnosis and treatment of gross hematuria -will need outpatient cardiology consult - Digoxin level 09/08/24 was 0.6. I plan to stop digoxin and increase diltiazem if he has paroxysms of atrial fibrillation with RVR. Status: Acute (4) Hypertension: Problem comment: Blood pressure not well controlled. Patient does not know his medications. According to notes from his appointment with Dr. Juarez he should be taking amlodipine, diltiazem, lisinopril. Probably is only taking low-dose diltiazem. Restart lisinopril. Consider increasing diltiazem if needing both heart rate control and blood pressure control. Consider adding a loop diuretic if needing only blood pressure control. Avoid thiazide diuretics due to hyponatremia Status: Acute (5) Lumbar radiculopathy: Problem comment: MRI 09/16/2024: 1. Moderate degenerative disc disease at L4-5 with 5 mm caudally extruded disc herniation. Mild central canal stenosis. Right greater than left subarticular recess narrowing with impingement upon the traversing right L5 nerve. 2. 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 Mild mild to moderate bilateral foraminal stenosis. Pending lumbar corticosteroid injection on October 13? Off anticoagulation until then. Status: Acute Plan Patient is admitted the hospital for ongoing management of gross hematuria and urinary retention with bladder irrigation and management of other medical problems including diabetes, hypertension, heart rate control, BPH. Total Time Spent Total Time Spent: Total time spent today is 80 minutes in evaluation management, review of past medical history and coordination of care and discussing with patient about ongoing management of medications and medication changes
[2024-10-03] MEDS: NICOTINE 2 MG GUM BUCCAL ×2 (17:34→23:45)
[2024-10-03] MEDS: MORPHINE 2 MG/ML inj IVP (17:39)
[2024-10-03] MEDS: INSULIN ASPART 100 UNIT/ML SUBCUT ×2 (18:19→22:47)
[2024-10-03 19:04] LABS: Digoxin* < 0.4 ng/mL (0.8-2.0)
--- NOTE | 2024-10-03 19:34 | PC.NURSE ---
Since admission (@ 1432) CBI flow has became obstructed approximately every 5 minutes requiring irrigation with numerous clots out.
[2024-10-03] MEDS: TAMSULOSIN HCL 0.4 MG CAPSULE PO (20:42)
[2024-10-03] MEDS: ATORVASTATIN CALCIUM 40 MG TABLET PO (20:42)
[2024-10-03] MEDS: SODIUM CHLORIDE 0.9 % (FLUSH) 10 ML SYRINGE 5 ML IVF (20:43)
[2024-10-04 00:28] LABS: Basophils Percent Auto 0.2 % (0.0-3.0); Eosinophils Percent Auto 0.1 % (0.0-7.0); Hematocrit 30.9 % (37.0-53.0); Hemoglobin* 10.4 gm/dL (13.5-17.5); Immature Granulocytes Pct Auto 0.2 %; Lymphocytes Percent Auto 6.2 % (20-44); Mean Corpuscular HGB Conc 34 gm/dL (32-36); Mean Corpuscular Hemoglobin 30 pg (26-34); Mean Corpuscular Volume 88 fL (80-100); Neutrophils Percent Auto 86.3 % (42.0-72.0); Platelet Count* 246 K/uL (140-440); RDW Coefficient of Variation % 12.1 % (11.5-15.5)
[2024-10-04 00:33] LABS: Slide Review Reflex No
[2024-10-04 02:58] VITALS: BP 135/63; PULSE 110; RESP 18; TEMP 36.6; O2SAT 99
[2024-10-04 06:48] LABS: Basophils Percent Auto 0.1 % (0.0-3.0); Eosinophils Percent Auto 0.1 % (0.0-7.0); Hematocrit 30.6 % (37.0-53.0); Hemoglobin* 10.2 gm/dL (13.5-17.5); Immature Granulocytes Pct Auto 0.2 %; Lymphocytes Percent Auto 15.3 % (20-44); Mean Corpuscular HGB Conc 33 gm/dL (32-36); Mean Corpuscular Hemoglobin 29 pg (26-34); Mean Corpuscular Volume 88 fL (80-100); Monocytes Percent Auto 6.7 % (0.0-11.0); Neutrophils Percent Auto 77.6 % (42.0-72.0); Platelet Count* 239 K/uL (140-440); RDW Coefficient of Variation % 12.2 % (11.5-15.5); Red Blood Count 3.47 m/uL (4.30-5.90); White Blood Count* 14.14 K/uL (4.50-11.00)
[2024-10-04 06:53] LABS: Slide Review Reflex No
[2024-10-04 07:00] VITALS: BP 133/75; PULSE 94; RESP 18; TEMP 36.9; O2SAT 100
[2024-10-04 07:05] LABS: Chloride* 100 mmol/L (96-114); Potassium* 4.2 mmol/L (3.6-5.1)
[2024-10-04 07:08] LABS: Blood Urea Nitrogen* 25 mg/dL (7-30); Calcium* 8.9 mg/dL (8.4-10.6); Carbon Dioxide* 22 mmol/L (20-32); Est. Creatinine Clearance* 73.98; Estimated Glomerular Filt Rate 80 ml/min; Glucose* 205 mg/dL (60-115)
--- NOTE | 2024-10-04 08:33 | PC.NURSE ---
Shift note ([id number]): Patient pleasant, alert and oriented. On continuous bladder irrigation. Needing irrigation with piston syringe several times due to catheter slowly draining or not draining. Pulled back approximately 300mL of blood clots. Clots varied in size; larger clots were pencil eraser sized and measured approximately 1-3cm long.?Small amount of bob blood noted draining from penis at times. Catheter was plugged at 2230. Irrigating with a piston syringe not effective. Catheter was changed. No further complete blocks to catheter since that time. Pivot transferred with assist of two to bedside commode as pt?reported dizziness. Pt passed out when sitting on bedside commode?having a bowel movement. Blood pressure stable at that time and have remained either elevated or within normal limits during shift. Dr Chong was here and updated. ?
[2024-10-04] MEDS: lisinopriL 10 MG TABLET PO (08:48)
[2024-10-04] MEDS: SENNOSIDES/DOCUSATE TABLET 1 TAB PO (08:48)
[2024-10-04] MEDS: dilTIAZem 120 MG CAP.ER.24H PO (08:48)
[2024-10-04] MEDS: METFORMIN ER 500 MG 1000 MG PO (08:48)
[2024-10-04] MEDS: SODIUM CHLORIDE 0.9 % (FLUSH) 10 ML SYRINGE 5 ML IVF ×2 (08:49→21:45)
[2024-10-04] MEDS: INSULIN ASPART 100 UNIT/ML SUBCUT ×3 (08:51→17:36)
[2024-10-04 08:54] LABS: Hemoglobin A1C* 6.5 % (0-5.6)
[2024-10-04 09:05] LABS: Anion Gap 11 mEq/L (7-15); Sodium* 133 mmol/L (135-149)
[2024-10-04] MEDS: NICOTINE 2 MG GUM BUCCAL ×2 (09:30→14:44)
--- NOTE | 2024-10-04 10:13 | PM.IMPN1 ---
Progress Note: A&P Assessment and plan (1) Acute urinary retention: Problem details: -acute on chronic recurrent -UC from 08/22 and 08/26 unremarkable Has BPH. Trial of Flomax discontinued due to dizziness. Patient also had AFib with RVR at that time. Subsequently has developed gross hematuria with clots causing catheter obstruction requiring irrigation of the bladder. Repeat trial of tamsulosin to see if he can tolerate it for his BPH. Ongoing urology evaluation for urodynamics, PSA Status: Acute (2) Gross hematuria: Problem details: -CBI ongoing. catheter has had to be changed once; clots are still forming and passing. has h/o bladder cancer in 2013. No known recurrence. 08/26/24 urinary retention and Fragoso catheter was placed 08/27/24 AFib with RVR. Started on diltiazem and digoxin and Eliquis. Eliquis discontinued when hematuria developed. Required bladder irrigation to resolve the hematuria. 09/23/24 CT showed Prostatomegaly. The bladder is partially decompressed by Fragoso catheter and demonstrates significant eccentric anterior wall thickening. Findings could be seen with a chronic UTI/cystitis secondary to outlet obstruction, but can also be correlated for neoplasm. No other findings seen to account for patient`s reported symptoms. 09/29/24 [place] [facility]. Cystoscopy was unremarkable, no obvious site of bleeding or apparent tumor. Urologist suspects his bleeding could be from rapid Status: Acute (3) Atrial fibrillation: Problem details: -rate controlled currently -previously had been on digoxin, diltiazem for rate control -he is not currently anticoagulated secondary to his recurrent obstructing gross hematuria -we will hold digoxin, SCDs and ambulation necessary. He is on tele so we can monitor for AFib. Dilt 120 q.a.m.for rate control Status: Acute (4) Bladder cancer: Problem details: -Diagnosed 2013 with nml PSA as of 08/2017 -history of urinary retention Status: Chronic (5) Diabetes mellitus: Problem details: -A1C 6.5 -PCP prescribed metformin and glipizide. We will continue metformin as an inpatient. Status: Acute (6) Hypertension: Problem details: -dual coverage for atrial fib with a history of RVR. Diltiazem 120 mg p.o. q.day, lisinopril. PRN beta-blockade is available. Also has prescriptions for amlodipine and lisinopril, it is clear how compliant patient is with medication. Status: Acute (7) Chronic hyponatremia: Problem details: - stable Status: Chronic Subjective Date Seen: 10/04/24 Interval history: Daily Progress Note - Hospital #: 2 CC: Hemorrhagic cystitis verses decompression bladder injury presenting as obstructed gross hematuria 24 HOUR UPDATE: ACP first 30 mins [id number] I went over options for care during this current hospitalization and explained the difference between palliative care and hospice care. I described the likelihood of returning to previous functioning and what the options are going forward for care. Shift note ([id number]): Patient pleasant, alert and oriented. On continuous bladder irrigation. Needing irrigation with piston syringe several times due to catheter slowly draining or not draining. Pulled back approximately 300mL of blood clots. Clots varied in size; larger clots were pencil eraser sized and measured approximately 1-3cm long. Small amount of bob blood noted draining from penis at times. Catheter was plugged at 2230. Irrigating with a piston syringe not effective. Catheter was changed. No further complete blocks to catheter since that time. Pivot transferred with assist of two to bedside commode as pt reported dizziness. Pt passed out when sitting on bedside commode having a bowel movement. Blood pressure stable at that time and have remained either elevated or within normal limits during shift. Dr Chong was here and updated. Patient continues to pass clots and bright red per urethra. No fever. No significant pain. Notable Labs, Micro, Rads, Interventions: CBC is down trending 16.4 down to 14.14 Hemoglobin is stable 10.4, 10.2 Platelets are normal INR is fran Mildly depressed sodium 133, A1c 6.5 Urine culture is negative thus far Objective: comfortable Vitals: see above Lungs: Clear. Cardiac: S1S2. : bright red blood in three way catheter. CBI ongoing. small amount of dried blood around meatus. Disposition/Potential discharge - will discuss with his urology team in the morning; home vs transfer depending on bleeding course. Today I spent 50minutes seeing the patient, reviewing Expanse and EPIC notes/diagnostics, discussing the care plan with our care time that includes social work, PT/OT, pharmacy, RT, shelter and documenting my impressions and plan in the medical record. Exam Const: Vital Signs, click to edit/add: Vital Signs - 24 hr 10/03/24 10:38 10/03/24 12:28 10/03/24 12:29 Temperature 98.9 F Pulse Rate 59 L 65 Pulse Rate [Left R adial] Pulse Rate [Right Pulse Oximeter] 75 Respiratory Rate 18 16 Blood Pressure 189/86 H Blood Pressure [Le ft Arm] Blood Pressure [Ri ght Upper Arm] 151/66 H Pulse Oximetry 97 97 98 Oxygen Delivery Il thod Room Air Room Air 10/03/24 12:30 10/03/24 12:45 10/03/24 13:00 Temperature Pulse Rate 66 57 L 59 L Pulse Rate [Left R adial] Pulse Rate [Right Pulse Oximeter] Respiratory Rate 16 Blood Pressure 197/97 H Blood Pressure [Le ft Arm] Blood Pressure [Ri ght Upper Arm] Pulse Oximetry 99 98 98 [facility] 10/03/24 13:02 10/03/24 13:03 10/03/24 13:15 Temperature Pulse Rate 64 58 L 61 Pulse Rate [Left R adial] Pulse Rate [Right Pulse Oximeter] Respiratory Rate Blood Pressure 193/97 H Blood Pressure [Le ft Arm] Blood Pressure [Ri ght Upper Arm] Pulse Oximetry 98 97 99 Oxygen Delivery Me thod 10/03/24 13:31 10/03/24 13:45 10/03/24 14:00 Temperature Pulse Rate 60 55 L 60 Pulse Rate [Left R adial] Pulse Rate [Right Pulse Oximeter] Respiratory Rate 16 Blood Pressure 189/87 H Blood Pressure [Le ft Arm] Blood Pressure [Ri ght Upper Arm] Pulse Oximetry 97 99 96 Oxygen Delivery Il thod Room Air 10/03/24 14:02 10/03/24 14:15 10/03/24 14:56 Temperature 97.3 F L Pulse Rate 59 L 62 Pulse Rate [Left R adial] 63 Pulse Rate [Right Pulse Oximeter] Respiratory Rate 16 Blood Pressure 189/90 H Blood Pressure [Le ft Arm] 183/109 H Blood Pressure [Ri ght Upper Arm] Pulse Oximetry 98 95 98 Oxygen Delivery Il thod Room Air 10/03/24 19:00 10/03/24 22:50 10/04/24 02:58 Temperature 97.3 F L 97.8 F 97.9 F Pulse Rate Pulse Rate [Left R adial] 85 101 H 110 H Pulse Rate [Right Pulse Oximeter] Respiratory Rate 22 18 18 Blood Pressure Blood Pressure [Le ft Arm] 195/82 H 161/77 H 135/63 Blood Pressure [Ri ght Upper Arm] Pulse Oximetry 96 97 99 Oxygen Delivery Me thod Room Air Room Air Room Air 10/04/24 07:00 Temperature 98.4 F Pulse Rate Pulse Rate [Left R adial] 94 Pulse Rate [Right Pulse Oximeter] Respiratory Rate 18 Blood Pressure Blood Pressure [Le ft Arm] 133/75 Blood Pressure [Ri ght Upper Arm] Pulse Oximetry 100 Oxygen Delivery Me thod Room Air Labs Labs: Laboratory Results - last 24 hr 10/03/24 10/03/24 10/03/24 11:34 12:25 17:11 WBC 8.25 RBC 4.51 Hgb 13.5 Hct 40.0 MCV 89 MCH 30 MCHC 34 RDW Coeff of Rodriguez 12.1 Plt Count 210 Neut % (Auto) 68.9 Lymph % (Auto) 19.2 L [place] % (Auto) 8.5 Eos % (Auto) 2.9 Baso % (Auto) 0.4 Neut # (Auto) 5.69 Lymph # (Auto) 1.60 [place] # (Auto) 0.70 Eos # (Auto) 0.24 Baso # (Auto) 0.03 Abs Immat Gran (auto) 0.01 Imm/Tot Granulo (auto) 0.1 INR 0.93 Sodium 135 Potassium 4.4 Chloride 99 Carbon Dioxide 27 Anion Gap 9 BUN 16 Creatinine 0.8 Estimated Creat Clear 77.11 Estimated GFR 94 Glucose 232 H Hemoglobin A1c 6.5 H Calcium 9.3 Urine Color Red A Urine Appearance Turbid A Urine pH >= 9.0 H Ur Specific [place] 1.010 Urine Protein 3+ A Urine Glucose (UA) Trace A Urine Ketones 3+ A Urine Blood 3+ A Urine Nitrite Negative Urine Bilirubin 3+ A Urine Urobilinogen >=8.0 A Ur Leukocyte Esterase 3+ A Urine RBC >100 A Urine WBC 2-5 Ur Squamous Epith Cells Few Urine Bacteria None Digoxin < 0.4 L Lab Acknowledgement Test Added 10/03/24 10/04/24 23:59 05:43 WBC 16.40 H 14.14 H RBC 3.50 L 3.47 L Hgb 10.4 L 10.2 L Hct 30.9 L 30.6 L MCV 88 88 MCH 30 29 MCHC 34 33 RDW Coeff of Rodriguez 12.1 12.2 Plt Count 246 239 Neut % (Auto) 86.3 H 77.6 H Lymph % (Auto) 6.2 L 15.3 L [place] % (Auto) 7.0 6.7 Eos % (Auto) 0.1 0.1 Baso % (Auto) 0.2 0.1 Neut # (Auto) 14.20 H 11.00 H Lymph # (Auto) 1.00 2.20 [place] # (Auto) 1.10 H 0.90 Eos # (Auto) 0.00 0.00 Baso # (Auto) 0.00 0.00 Abs Immat Gran (auto) 0.00 0.00 Imm/Tot Granulo (auto) 0.2 0.2 INR Sodium 133 L Potassium 4.2 Chloride 100 Carbon Dioxide 22 Anion Gap 11 BUN 25 Creatinine 1.0 Estimated Creat Clear 73.98 Estimated GFR 80 Glucose 205 H Hemoglobin A1c Calcium 8.9 Urine Color Urine Appearance Urine pH Ur Specific [place] Urine Protein Urine Glucose (UA) Urine Ketones Urine Blood Urine Nitrite Urine Bilirubin Urine Urobilinogen Ur Leukocyte Esterase Urine RBC Urine WBC Ur Squamous Epith Cells Urine Bacteria Digoxin Lab Acknowledgement
[2024-10-04 11:39] VITALS: BP 144/66; PULSE 87; RESP 18; TEMP 36.6; O2SAT 100
[2024-10-04 16:28] VITALS: BP 129/65; PULSE 77; RESP 18; TEMP 37.1; O2SAT 100
[2024-10-04 19:00] VITALS: BP 138/68; PULSE 72; RESP 18; TEMP 35.4; O2SAT 98
--- NOTE | 2024-10-04 19:43 | PC.NURSE ---
End of shift [id number] - Pt alert, oriented, cooperative. Not up from bed during shift, but able to sit on edge of bed without assistance and without lightheadedness/dizziness. Pt denied pain, SOB and remained afebrile during shift. Catheter irrigation system managed per protocol, blockages flushed PRN to maintain patency. Clot volume immeasurable, largest clots observed to be roughly the size of a dime. Catheter noted to be patent and draining at end of shift. Pt appears to be resting comfortably in bed with call light within reach.
[2024-10-04] MEDS: ATORVASTATIN CALCIUM 40 MG TABLET PO (21:44)
[2024-10-04] MEDS: TAMSULOSIN HCL 0.4 MG CAPSULE PO (21:44)
[2024-10-04 23:00] VITALS: BP 111/58; PULSE 75; RESP 18; TEMP 36.8; O2SAT 97
[2024-10-05 02:57] VITALS: BP 126/59; PULSE 84; RESP 20; TEMP 36.7; O2SAT 98
[2024-10-05 06:27] LABS: Basophils Percent Auto 0.2 % (0.0-3.0); Eosinophils Percent Auto 1.2 % (0.0-7.0); Hematocrit 24.1 % (37.0-53.0); Hemoglobin* 8.2 gm/dL (13.5-17.5); Immature Granulocytes Pct Auto 0.2 %; Lymphocytes Percent Auto 16.5 % (20-44); Mean Corpuscular HGB Conc 34 gm/dL (32-36); Mean Corpuscular Hemoglobin 30 pg (26-34); Mean Corpuscular Volume 88 fL (80-100); Monocytes Percent Auto 8.5 % (0.0-11.0); Neutrophils Percent Auto 73.4 % (42.0-72.0); Platelet Count* 198 K/uL (140-440); RDW Coefficient of Variation % 12.2 % (11.5-15.5); Red Blood Count 2.75 m/uL (4.30-5.90)
[2024-10-05 06:35] LABS: Slide Review Reflex No
[2024-10-05 07:03] LABS: Chloride* 98 mmol/L (96-114)
[2024-10-05 07:04] LABS: Potassium* 4.2 mmol/L (3.6-5.1); Sodium* 128 mmol/L (135-149)
[2024-10-05 07:06] LABS: Creatinine* 0.8 mg/dL (0.5-1.5); Estimated Glomerular Filt Rate 94 ml/min
[2024-10-05 07:07] LABS: Anion Gap 7 mEq/L (7-15); Blood Urea Nitrogen* 26 mg/dL (7-30); Calcium* 8.5 mg/dL (8.4-10.6); Carbon Dioxide* 23 mmol/L (20-32); Glucose* 153 mg/dL (60-115)
[2024-10-05 07:30] VITALS: BP 160/64; PULSE 84; RESP 16; TEMP 36.9; O2SAT 96
--- NOTE | 2024-10-05 07:59 | PC.NURSE ---
Shift note ([id number]): Patient pleasant, alert and oriented. On continuous bladder irrigation. Catheter remained patent with no blockages. Very few small clots noted during shift. No need for piston syringe irrigating. Leaking around catheter tubing at times. Small amount of bleeding from penis. Drainage in catheter bag mostly light pink in color.?Denied pain. Remained in bed this shift. No reports of feeling dizzy.?
[2024-10-05] MEDS: SENNOSIDES/DOCUSATE TABLET 1 TAB PO (08:28)
[2024-10-05] MEDS: SODIUM CHLORIDE 1 GM TABLET PO ×3 (08:30→18:10)
[2024-10-05] MEDS: lisinopriL 10 MG TABLET PO (08:30)
[2024-10-05] MEDS: METFORMIN ER 500 MG 1000 MG PO (08:30)
[2024-10-05] MEDS: SODIUM CHLORIDE 0.9 % (FLUSH) 10 ML SYRINGE 5 ML IVF ×2 (08:31→21:29)
[2024-10-05] MEDS: INSULIN ASPART 100 UNIT/ML SUBCUT (08:31)
[2024-10-05] MEDS: NICOTINE 2 MG GUM BUCCAL ×4 (09:12→23:08)
--- NOTE | 2024-10-05 09:52 | NUTR.NU ---
RDN with diet education related to diabetic diet. Patient admitted for urinary retentions and hematuria. Per MD at [facility] today, patient needs transfer. Not appropriate to visit with patient at this time. Of note, patient received medical nutrition therapy outpatient in January and February of 2024 by this RDN. Will continue to monitor and follow-up if appropriate.
[2024-10-05 11:00] VITALS: BP 142/89; PULSE 86; RESP 18; TEMP 37; O2SAT 97
--- NOTE | 2024-10-05 14:16 | PC.NURSE ---
Patient required irrigation throughout the shift with medium to large sized clots. Patient only reports pain when catheter requires irrigation. Urine and fluid draining from penis around catheter when clotted. Reports decreased appetite, no nausea. Dizziness with movement reported. 2000 [address] fluid restriction in [address]. Plan to transfer to [facility] when bed available for urology consult.
[2024-10-05 15:00] VITALS: BP 141/67; PULSE 88; RESP 16; TEMP 36.9; O2SAT 99
--- NOTE | 2024-10-05 15:42 | P.IMPN_ITS ---
Progress Note: A&P Assessment and plan (1) Gross hematuria: Problem details: -CBI ongoing. catheter has had to be changed once; clots are still forming and passing. -Acute blood loss anemia (13.5 down to 8.0) - no transfusions to this point. has h/o bladder cancer in 2013. No known recurrence. 08/26/24 urinary retention and Fragoso catheter was placed 08/27/24 AFib with RVR. Started on diltiazem and digoxin and Eliquis. Eliquis discontinued when hematuria developed. Required bladder irrigation to resolve the hematuria. 09/23/24 CT showed Prostatomegaly. The bladder is partially decompressed by Fragoso catheter and demonstrates significant eccentric anterior wall thickening. Findings could be seen with a chronic UTI/cystitis secondary to outlet obstruction, but can also be correlated for neoplasm. No other findings seen to account for patient`s reported symptoms. 09/29/24 [facility]. Cystoscopy was unremarkable, no obvious site of bleeding or apparent tumor. Urologist suspects his bleeding could be from rapid decompression Status: Acute (2) ABLA (acute blood loss anemia): Problem details: -13.5 down to 8.0 -hemodynamically stable -not on anticoagulant -transfuse less than 8 -transfer for definitive procedure (clot extraction from bladder) Status: Acute (3) Acute urinary retention: Problem details: -acute on chronic recurrent -UC from 08/22 and 08/26 unremarkable Has BPH. Trial of Flomax discontinued due to dizziness. Patient also had AFib with RVR at that time. Subsequently has developed gross hematuria with clots causing catheter obstruction requiring irrigation of the bladder. Repeat trial of tamsulosin to see if he can tolerate it for his BPH. Ongoing urology evaluation for urodynamics, PSA Status: Acute (4) Hyponatremia: Problem details: 2L fluid restriction salt tabs trend labs Status: Acute (5) Atrial fibrillation: Problem details: -rate controlled currently -previously had been on digoxin, diltiazem for rate control -he is not currently anticoagulated secondary to his recurrent obstructing gross hematuria -we will hold digoxin, SCDs and ambulation necessary. He is on tele so we can monitor for AFib. Dilt 120 q.a.m.for rate control Status: Acute (6) Bladder cancer: Problem details: -Diagnosed 2013 with nml PSA as of 08/2017 -history of urinary retention Status: Chronic (7) Diabetes mellitus: Problem details: -A1C 6.5 -PCP prescribed metformin and glipizide. We will continue metformin as an inpatient. Status: Acute (8) Hypertension: Problem details: -dual coverage for atrial fib with a history of RVR. Diltiazem 120 mg p.o. q.day, lisinopril. PRN beta-blockade is available. Also has prescriptions for amlodipine and lisinopril, it is clear how compliant patient is with medication. Status: Acute Subjective Date Seen: 10/05/24 Interval history: Daily Progress Note - Hospital Medicine Day #: 2 CC: Hemorrhagic cystitis verses decompression bladder injury presenting as obstructed gross hematuria 24 HOUR UPDATE: continues to bleed; obstructs his 3W catheter frequently. Hemoglobin at baseline is 13.5 and is down to 8.0 this afternoon. Patient continues to pass clots and bright red per urethra. No fever. No significant pain. Notable Labs, Micro, Rads, Interventions: CBC is down trending 16.4 down to 14.14 down to 12.4 Hemoglobin is downtrending as described above. Platelets are normal INR is normal Hyponatremia is more pronounced this morning (137 down to 128) A1c 6.5 Urine culture is negative thus far Objective: comfortable Vitals: see above Lungs: Clear. Cardiac: S1S2. : bright red blood in three way catheter. CBI ongoing. small amount of dried blood around meatus. Disposition/Potential discharge - Discussed case with Dr. Pedraza from [facility] this morning, he is accepting care of his patient once a bed is available at [place]. Today I spent 50minutes seeing the patient, reviewing Expanse and EPIC notes/diagnostics, discussing the care plan with our care time that includes social work, PT/OT, pharmacy, RT, snf and documenting my impressions and plan in the medical record. Exam Const: Vital Signs, click to edit/add: Vital Signs - 24 hr 10/04/24 16:28 10/04/24 19:00 10/04/24 23:00 Temperature 98.7 F 95.8 F L 98.3 F Pulse Rate [Left R adial] 77 72 75 Pulse Rate [Pulse Oximeter] Respiratory Rate 18 18 18 Blood Pressure [Le ft Arm] 129/65 138/68 111/58 L Pulse Oximetry 100 98 97 Oxygen Delivery Me thod Room Air Room Air Room Air 10/05/24 02:57 10/05/24 07:30 10/05/24 07:30 Temperature 98.0 F 98.4 F Pulse Rate [Left R adial] Pulse Rate [Pulse Oximeter] 84 84 84 Respiratory Rate 20 16 16 Blood Pressure [Le ft Arm] 126/59 L 160/64 H Pulse Oximetry 98 96 Oxygen Delivery Me thod Room Air Room Air 10/05/24 11:00 10/05/24 15:00 Temperature 98.6 F 98.4 F Pulse Rate [Left R adial] Pulse Rate [Pulse Oximeter] 86 88 Respiratory Rate 18 16 Blood Pressure [Le ft Arm] 142/89 H 141/67 H Pulse Oximetry 97 99 Oxygen Delivery Me thod Room Air Room Air Labs Labs: Laboratory Results - last 24 hr 10/05/24 10/05/24 05:47 14:40 WBC 12.40 H RBC 2.75 L Hgb 8.2 L 8.0 L Hct 24.1 L MCV 88 MCH 30 MCHC 34 RDW Coeff of Rodriguez 12.2 Plt Count 198 Neut % (Auto) 73.4 H Lymph % (Auto) 16.5 L [place] % (Auto) 8.5 Eos % (Auto) 1.2 Baso % (Auto) 0.2 Neut # (Auto) 9.10 H Lymph # (Auto) 2.00 [place] # (Auto) 1.10 H Eos # (Auto) 0.10 Baso # (Auto) 0.00 Abs Immat Gran (auto) 0.00 Imm/Tot Granulo (auto) 0.2 Sodium 128 L Potassium 4.2 Chloride 98 Carbon Dioxide 23 Anion Gap 7 BUN 26 Creatinine 0.8 Estimated Creat Clear 73.90 Estimated GFR 94 Glucose 153 H Calcium 8.5
[2024-10-05 19:00] VITALS: BP 118/84; PULSE 88; RESP 18; TEMP 36.8; O2SAT 98
[2024-10-05] MEDS: ATORVASTATIN CALCIUM 40 MG TABLET PO (21:29)
[2024-10-05] MEDS: TAMSULOSIN HCL 0.4 MG CAPSULE PO (21:29)
[2024-10-05 23:00] VITALS: BP 132/62; PULSE 75; PULSE 85; PULSE 88; RESP 16; RESP 18; TEMP 36.8; O2SAT 97
[2024-10-06 03:00] VITALS: BP 141/78; PULSE 91; RESP 16; TEMP 37.1; O2SAT 98
--- NOTE | 2024-10-06 03:58 | PC.NURSE ---
Pt alert, oriented and vitally stable. Pt on cont. bladder irrigation, currently?patent and draining appropriately. Irrigation required 1 time throughout shift, medium to large clots extracted. Pain reported when Cath clots off, though subsides with irrigation. Pt had no complaints of dizziness or nausea. IV infiltrated in left AC, warm blanket placed to site, IV replaced in right wrist. Pt in bed, appears to be resting, call light within reach.?
--- NOTE | 2024-10-06 06:12 | PC.NURSE ---
End of shift [id number]: Pts pandey patent and draining. Irrigated x1 with 2 small blood clots, one unmeasured void charted. Continuing to monitor Pt output and replace fluids. Pt AxOx4, cooperative to cares. Using call light appropriately. Pt resting with call light in reach.
[2024-10-06 06:31] LABS: Basophils Absolute Auto 0.03 K/uL (0.00-0.30); Basophils Percent Auto 0.3 % (0.0-3.0); Eosinophils Absolute Auto 0.18 K/uL (0.00-0.50); Eosinophils Percent Auto 1.7 % (0.0-7.0); Hematocrit 24.4 % (37.0-53.0); Hemoglobin* 8.2 gm/dL (13.5-17.5); Immature Granulocytes Abs Auto 0.02 K/uL (0.00-0.30); Immature Granulocytes Pct Auto 0.2 %; Lymphocytes Absolute Auto 2.16 K/uL (0.90-2.90); Lymphocytes Percent Auto 20.9 % (20-44); Mean Corpuscular HGB Conc 34 gm/dL (32-36); Mean Corpuscular Hemoglobin 30 pg (26-34); Mean Corpuscular Volume 89 fL (80-100); Monocytes Percent Auto 9.1 % (0.0-11.0); Neutrophils Absolute Auto 7.02 K/uL (1.7-7.0); Neutrophils Percent Auto 67.8 % (42.0-72.0); Platelet Count* 216 K/uL (140-440); RDW Coefficient of Variation % 12.3 % (11.5-15.5); Red Blood Count 2.75 m/uL (4.30-5.90); Slide Review Reflex No; White Blood Count* 10.35 K/uL (4.50-11.00)
[2024-10-06 06:41] LABS: Chloride* 101 mmol/L (96-114); Potassium* 4.2 mmol/L (3.6-5.1); Sodium* 134 mmol/L (135-149)
[2024-10-06 06:44] LABS: Anion Gap 8 mEq/L (7-15); Blood Urea Nitrogen* 18 mg/dL (7-30); Calcium* 8.8 mg/dL (8.4-10.6); Carbon Dioxide* 25 mmol/L (20-32); Creatinine* 0.8 mg/dL (0.5-1.5); Est. Creatinine Clearance* 72.48; Estimated Glomerular Filt Rate 94 ml/min; Glucose* 154 mg/dL (60-115)
[2024-10-06 07:30] VITALS: BP 140/76; PULSE 75; PULSE 78; RESP 18; TEMP 36.6; O2SAT 99
[2024-10-06] MEDS: SENNOSIDES/DOCUSATE TABLET 1 TAB PO (09:14)
[2024-10-06] MEDS: SODIUM CHLORIDE 1 GM TABLET PO (09:14)
[2024-10-06] MEDS: METFORMIN ER 500 MG 1000 MG PO (09:14)
[2024-10-06] MEDS: lisinopriL 10 MG TABLET PO (09:14)
[2024-10-06] MEDS: SODIUM CHLORIDE 0.9 % (FLUSH) 10 ML SYRINGE 5 ML IVF (09:20)
--- NOTE | 2024-10-06 11:10 | PM.DST ---
Transfer Discharge Sum: Prov Provider Date Seen: 10/06/24 Date of admission: 10/04/24 15:25 Primary care physician: Santi Juarez MD Consults: Urology by phone Attending physician on discharge: Asha Epstein Discharging clinician: Asha Epstein Anticipated date of transfer: 10/06/24 Receiving physician/facility: [facility] DS: Diagnosis Discharge Diagnosis (1) Gross hematuria: Status: Acute Problem details: -CBI ongoing. catheter has had to be changed once since admission 10/04; clots are still forming and passing -Acute blood loss anemia (13.5 down to 8.0) - no transfusions to this point -h/o bladder cancer in 2013, no known recurrence History prior to admission: 08/26/24: urinary retention and Fragoso catheter was placed 08/27/24: AFib with RVR. Started on diltiazem and digoxin and Eliquis. Eliquis discontinued when hematuria developed. Required bladder irrigation to resolve the hematuria. 09/23/24: CT with Prostatomegaly, bladder is partially decompressed by Fragoso catheter and demonstrates significant eccentric anterior wall thickening. Findings could be seen with a chronic UTI/cystitis secondary to outlet obstruction, but can also be correlated for neoplasm. No other findings seen to account for reported symptoms 09/29/24: [facility]. Cystoscopy was unremarkable, no obvious site of bleeding or apparent tumor. Urologist suspects his bleeding could be from rapid decompression (2) ABLA (acute blood loss anemia): Status: Acute Problem details: -13.5 down to 8.0 -hemodynamically stable, not anticoagulated -transfuse less than 8 -transfer for definitive procedure (clot extraction from bladder) --> to [facility] 10/06 (3) Acute urinary retention: Status: Acute Problem details: -acute on chronic, recurrent; h/p BPH -UC from 08/22 and 08/26 unremarkable -previous trial of Flomax discontinued due to dizziness (notably, patient also had AFib with RVR at that time) -restarted Flomax 10/03; so far, tolerating with stable VS (4) Hyponatremia: Status: Acute Problem details: -Na jamison of 128, currently 134 -on 2L fluid restriction (5) Atrial fibrillation: Status: Acute Problem details: -rate controlled currently -previously had been on digoxin, diltiazem for rate control -he is not currently anticoagulated secondary to his recurrent obstructing gross hematuria -HOLDING digoxin, remains rate controlled (6) Bladder cancer: Status: Chronic Problem details: -Diagnosed 2013 with nml PSA as of 08/2017 -history of urinary retention (7) Diabetes mellitus: Status: Acute Problem details: -A1C 6.5 -PCP prescribed metformin and glipizide, continuing metformin as an inpatient. (8) Hypertension: Status: Acute Problem details: -dual coverage for atrial fib with a history of RVR. Diltiazem 120 mg p.o. q.day, lisinopril. PRN beta-blockade is available. -Also has prescriptions for amlodipine and lisinopril, it is clear how compliant patient is with medication. Transfer Discharge Sum: Med Medications Active and Home Medications: Home Medications epinephrine 0.3 mg/0.3 mL injection, auto-injector 0.3 ml IM .As Needed as needed PRN anaphylaxis #2 ea 07/03/23 [Rx Confirmed 10/03/24] diltiazem HCl 60 mg capsule,extended release 12 hr 60 mg PO BID #60 caps 09/01/24 [Rx Confirmed 10/03/24] amlodipine 10 mg tablet 10 mg PO DAILY #90 tabs 09/28/24 [Rx Confirmed 10/03/24] atorvastatin 40 mg tablet 40 mg PO HS #90 tabs 09/28/24 [Rx Confirmed 10/03/24] digoxin 125 mcg (0.125 mg) tablet 125 mcg PO DAILY #30 tabs 09/28/24 [Rx Confirmed 10/03/24] glipizide 10 mg tablet, extended release 24 hr 10 mg PO DAILY #90 tabs 09/28/24 [Rx Confirmed 10/03/24] lisinopril 10 mg tablet 10 mg PO DAILY #90 tabs 09/28/24 [Rx Confirmed 10/03/24] metformin 500 mg tablet,extended release 24 hr 1,000 mg (2 x 500 mg) PO QDAY #180 tabs 09/28/24 [Rx Confirmed 10/03/24] mupirocin 2 % topical ointment 1 applic topical TID PRN 09/28/24 [History Confirmed 10/03/24] nitrofurantoin monohydrate/macrocrystals 100 mg capsule 100 mg PO BID 09/28/24 [History Confirmed 10/03/24] Active Medications Acetaminophen (Acetaminophen 325 Mg Tablet) 650 mg PO Q4H PRN Atorvastatin Calcium (Atorvastatin Calcium 40 Mg Tablet) 40 mg PO HS [facility] Last Admin: 10/05/24 21:29 Dose: 40 mg Insulin Aspart (Insulin Aspart 100 Unit/Ml) 0 unit SUBCUT ACHS [facility]; Protocol Last Admin: 10/06/24 09:15 Dose: Not Given Lisinopril (Lisinopril 10 Mg Tablet) 10 mg PO DAILY [facility] Last Admin: 10/06/24 09:14 Dose: 10 mg Melatonin (Melatonin 3 Mg Tablet) 3 mg PO HS PRN Metformin HCl (Metformin Er 500 Mg) 1,000 mg PO DAILY [facility] Last Admin: 10/06/24 09:14 Dose: 1,000 mg Morphine Sulfate (Morphine 2 Mg/Ml Inj) 2 mg IVP Q2H PRN PRN Reason: Suprapubic pain, bladder spasm Last Admin: 10/03/24 17:39 Dose: 2 mg Nicotine Polacrilex (Nicotine 2 Mg Gum) 2 mg BUCCAL Q1H PRN Last Admin: 10/05/24 23:08 Dose: 2 mg Non-Formulary Medication (Diltiazem Hcl) 60 mg PO BID [facility] Last Admin: 10/04/24 15:55 Dose: Not Given Ondansetron HCl (Ondansetron 2 Mg/Ml Inj) 4 mg IVP Q4H PRN PRN Reason: Nausea Senna/Docusate Sodium (Sennosides/Docusate Tablet) 1 - 2 tab PO BID PRN Senna/Docusate Sodium (Sennosides/Docusate Tablet) 1 tab PO DAILY [facility] Last Admin: 10/06/24 09:14 Dose: 1 tab Sodium Chloride (Sodium Chloride 0.9 % (Flush) 10 Ml Syringe) 5 ml IVF BID [facility] Last Admin: 10/06/24 09:20 Dose: 5 ml Sodium Chloride (Sodium Chloride 1 Gm Tablet) 1 gm PO TIDWM [facility] Last Admin: 10/06/24 09:14 Dose: 1 gm Tamsulosin HCl (Tamsulosin Hcl 0.4 Mg Capsule) 0.4 mg PO HS [facility] Last Admin: 10/05/24 21:29 Dose: 0.4 mg Transfer Discharge Sum: Hosp Hospital Course Hospital course: Suresh Martinez is a 74 year old male presented to our emergency room on 10/03/2024 with gross hematuria and clot formation. History of bladder cancer; also had urinary retention in August (presumed secondary to BPH) with Fragoso catheter placed at that time. Reassuring cystoscopy 1 week ago. Patient admitted and CBI initiated; unfortunately continued to have persistent clot formation and requires transfer to higher level of care for urology management. Accepted to [facility] (initially by Dr. Pedraza on 10/05; bed not available until 10/06/2024). Other notable findings during hospital stay, above. Hemoglobin stable at 8.2, vital signs stable with rate controlled atrial fibrillation and BP of 140/76. Time Spent with Patient Time attestation: Total time spent providing and/or coordinating transfer services: Total time spent: Greater than 30 minutes Exam Narrative: Exam Narrative: Patient is laying comfortably in bed, nontoxic He is pale with conjunctival pallor noted Rate controlled atrial fibrillation Hematuria in catheter bag Const: Vital Signs, click to edit/add: Vital Signs - 24 hr 10/05/24 15:00 10/05/24 15:00 10/05/24 19:00 Temperature 98.4 F 98.2 F Pulse Rate [Left R adial] Pulse Rate [Pulse Oximeter] 88 88 88 Respiratory Rate 16 16 18 Blood Pressure [Le ft Arm] 141/67 H 118/84 Pulse Oximetry 99 98 Oxygen Delivery Me thod Room Air Room Air 10/05/24 23:00 10/05/24 23:00 10/06/24 03:00 Temperature 98.2 F 98.7 F Pulse Rate [Left R adial] 75 Pulse Rate [Pulse Oximeter] 88 85 91 Respiratory Rate 18 16 16 Blood Pressure [Le ft Arm] 132/62 141/78 H Pulse Oximetry 97 98 Oxygen Delivery Me thod Room Air Room Air 10/06/24 07:30 10/06/24 07:30 Temperature 97.8 F Pulse Rate [Left R adial] 75 Pulse Rate [Pulse Oximeter] 78 78 Respiratory Rate 18 18 Blood Pressure [Le ft Arm] 140/76 H Pulse Oximetry 99 Oxygen Delivery Me thod Room Air Discharge Plan Discharge Disposition: [facility] Date of Admission: 10/04/24 15:25 Attending Provider on Discharge: Asha Epstein Primary Care Provider: Santi Juarez Discharge Orders: Transfer of Care to Other Hospital (ORDER); Ordered 10/06/24 Ordered By: Asha Epstein Oxygen: No Urinary Catheter: Yes Drips/Lines: CBI Services not available here: Urology
[2024-10-06 11:48] VITALS: BP 184/81; PULSE 83; RESP 16; TEMP 36.6; O2SAT 98
== END 2024-10-06 12:53 | disposition short-term general hospital (02) | DRG 699 ==
LOC: ED 14:17 → MEDSURG 14:43
PROVIDERS: Admitting Provider Family Medicine; Emergency Provider Emergency Medicine; PCP Family Medicine; Visit Provider Family Medicine
DX: T83.091A Other mechanical complication of indwelling urethral catheter, initial encounter (principal); D62 Acute posthemorrhagic anemia; E87.1 Hypo-osmolality and hyponatremia; R31.0 Gross hematuria; T83.031A Leakage of indwelling urethral catheter, initial encounter; R33.8 Other retention of urine; N40.1 Benign prostatic hyperplasia with lower urinary tract symptoms; E11.9 Type 2 diabetes mellitus without complications; Z79.01 Long term (current) use of anticoagulants; I48.0 Paroxysmal atrial fibrillation; Z79.84 Long term (current) use of oral hypoglycemic drugs; R26.9 Unspecified abnormalities of gait and mobility; M51.17 Intervertebral disc disorders with radiculopathy, lumbosacral region; M48.07 Spinal stenosis, lumbosacral region; Z85.51 Personal history of malignant neoplasm of bladder; I10 Essential (primary) hypertension; M10.9 Gout, unspecified; Z87.891 Personal history of nicotine dependence
CPT/HCPCS: 51702; 36415; 51701; 80048; 80162; 81001; 82962; 83036; 85018; 85025; 85610; 87086; 99283; 99285; A9270; G0378; J2270

== ENCOUNTER 2024-10-06 12:33 | Outpatient (CLI) | payer MEDICARE, BC, SELFPAY | END 2024-10-06 12:34 | disposition home or self-care (01) | LOC: AMB 10-07 11:45 | PROVIDERS: PCP Family Medicine; Visit Provider Emergency Medicine | DX: R31.0 Gross hematuria (principal); D62 Acute posthemorrhagic anemia; R33.8 Other retention of urine | CPT/HCPCS: A0425; A0429 ==

== ENCOUNTER 2024-10-25 01:50 | Emergency (ER) | payer MEDICARE, BC, SELFPAY ==
[2024-10-25 01:53] VITALS: BP 142/66; PULSE 78; RESP 16; TEMP 36.1; O2SAT 99; BMI 23.1
--- OUTSIDE RECORDS SUMMARY | 2024-10-25 01:53 | XMS_ITS | Clinical Summary ---
Author Organization [facility] Address [address] 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 ADVISER Temperature 36.7 C (98 F) 03/26/2013 9:28 AM CDT Respiratory Rate 18 03/26/2013 9:28 AM CDT Oxygen Saturation 98% 03/26/2013 9:28 AM CDT Inhaled Oxygen Concentration - - Weight 106.6 kg (235 lb) 09/10/2017 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
--- OUTSIDE RECORDS SUMMARY | 2024-10-25 01:53 | XMS_ITS | Continuity of Care Document ---
Author Organization [facility], [facility] Address [address] [place] [phone] Care Team Providers Care Program Eligibility Specialist Name Role Phone ALEKSANDRASHEA Marcial Primary Care Provider [phone] Assessment Encounter Date Assessment Date Assessment LastModified by Organization Details LastModified Time 10/15/2024 10/15/2024 74 year old male with a history of benign prostatic hyperplasia with lower urinary tract symptoms, urinary retention, and gross hematuria. Not available 10/15/2024 14:28:45 Plan of Treatment Reminders Order Date Submit Date Provider Last Modified By Organization Details Last Modified Time Details Appointments PROCEDURE 30 2024 02:00P M CLINICAL_ SCHEDULE Not available Not available Not available HOSPITAL 180 2024 11:00A M Obey Pedraza MD Not available Not available Not available LAB 30 VOIDING TRIAL/HIRAL L&PULL 2024 09:30A M CLINICAL_ SCHEDULE Not available Not available Not available POST OP 10 2024 11:40A M Obey Pedraza MD Not available Not available Not available Lab None recorded. Referral None recorded. Procedures None recorded. Surgeries laser enucleati on of prostate with morcellat ion (SURG) 2024 025 xvang Not available 10/16/2024 10:36:12 Imaging None recorded. Medication Orders None recorded. Patient TargetsNo targets recorded. Patient Instructions Encounter Date Encounter Id Patient Instructions Last Modified By Organization Details Last Modified Time 10/15/2024 [id number] Benign prostatic hyperplasia with lower urinary tract symptoms/Urinary retention: We reviewed his urodynamic studies together and I htink an outlet procedure is his best option at this point. Given his gland size I recommend cystoscopy with either bilobar or laser enucleation. We reviewed the technical aspects of the procedure and risks including bleeding, infection, injury to surrounding structures, anesthetic risks, and treatment failure. He would like to proceed. Gross hematuria: Almost certainly due to his gland as opposed to malignancy. His office cystoscopy and that done by Dr. Epstein on 10/08/2024 showed no evidence of a bladder mass. I reviewed the images of his CT urogram and my interpretation is that the bladder wall thickening is fairly symmetric throughout the bladder and appears much more consistent with chronic changes given his outlet obstruction. Not available 10/15/2024 14:28:35 Reason for Referral None Reported. Results Created Date Observation Date Name Description Value Unit Range Abnormal Flag Note LastModifiedBy Organization Detail LastModifiedTime 09/23/1909/23/2024 CT, urogr am No observ ation record ed. [email or web address] [facility] [address], [place], [address], 10/13/2024 08:55:07 Result Notes None recorded. Problems Name Problem SNOMED Code Status Onset Date Resolution Date Notes Provider Name and Address Organization Details Recorded Time Retention of urine 950283902 Active 2024 Kurt Gaspar satinder [facility] 5 12:52:01 Type 2 diabetes mellitus 83567748 Active 2024 Kurt Gaspar [facility]inder [facility] 5 12:52:35 Hypertensiv e disorder 37522530 Active 2024 Kurtpapo Gaspar satinder [facility] 5 12:52:38 Lower urinary tract symptoms due to benign prostatic hypertrophy 0996943429458 1 Active 2024 Kurt Gaspar satinder [facility] 5 10:56:02 Problem Notes None recorded. Procedures Surgical History Date Name Laterality Status Provider Name and Address Organization Details Recorded Time 5 COMPLEX VISIT completed Obey Pedraza MD [address], [place], [address], [facility] 10/15/2024 14:26:19 5 Blood Draw/ANESTHESIA ATTENDING/PSA RESULTS cancelled Elo Bishop [facility] 10/05/2024 11:50:19 5 Urodynamic Studies completed Dwaine Kong MD [address] [place] [address],[address], [phone], [facility] 10/11/2024 11:34:02 5 Fragoso Catheter Insertion completed Chelsey Most [facility] 09/29/2024 15:46:01 5 Cystoscopy- male completed Obey Pedraza MD [address] [place] [address],[address], [phone], [facility] 09/09/2024 11:09:52 5 Past Data Reviewed completed Obey Pedraza MD [address] [place] [address],[address], [phone], [facility] 09/09/2024 09:40:02 4 Colonoscopy completed Kurt Owens [facility] 09/09/2024 10:56:16 Imaging Results None recorded. Procedure Notes None recorded. Medical Equipment None Reported. Allergies Allergen ID Allergen Name Allergen Category Reaction Reaction Severity Criticality Documentation Date Start Date Code Code System Note Provider Name and Address Organization Details Recorded Time 185048 honey bee venom medicatio n Not available Not available Not available 09/01/2024 84764 7 RxNorm Not Available Not Available Not Available 971753 Product containin g penicilli n (product) medicatio n Not available Not available Not available 09/01/2024 46679 8001 SNOMED Not Available Not Available Not [...] Not Available Not Available No t Available Bactrim DS 800 mg-160 mg tablet Take 1 tablet every 12 hours by oral route for 5 days. 10/05 completed Not Available Not Available Not Available gabapentin 100 mg tablet Take 1 tablet 3 times a day by oral route. 10/02 completed Not Available Not Available Not Available glipizide ER 10 mg 24 hr tablet,exte nded release Take 1 tablet every day by oral route. active Not Available Not Available No t Available Vitals Date Recorded Body height Provider Name an d Address Organization Details Last Updated DateTime 10/15/2024 187.96 cm [facility] 13:[facility]17 Social History Question Answer Notes LastModified by Organizat ion Details LastModified Time Tobacco Smoking Status Former Smoker Kurt rajan, [facility] 09/09/2024 10:55:43 What Is Your Level Of Alcohol Consumption? None Information not available 09/09/2024 What Is Your Level Of Caffeine Consumption? None Information not available 09/09/2024 When Did You Quit Smoking? 6-10yearssi ncelastciga rette Information not available 09/09/2024 What Was The Date Of Your Most Recent Tobacco Screening? 10/15/2024 Information not available 10/15/2024 How Much Tobacco Do You Smoke? No [...] trivalent, PF 4 completed Kurt Meath null, [facility] 09/09/2024 10:52:31 zoster recombinant 3 completed Kurt Meath null, [facility] 09/09/2024 10:52:31 zoster recombinant 3 completed Kurt Meath null, [facility] 09/09/2024 10:52:31 Influenza, high-dose, quadrivalent, PF 1 completed Kurt Meath null, [facility] 09/09/2024 10:52:31 Influenza, high-dose, quadrivalent, PF 0 completed Kurt Meath null, [facility] 09/09/2024 10:52:31 Influenza, adjuvanted, quadrivalent, PF 3 completed Kurt Meath null, [facility] 09/09/2024 10:52:31 Influenza, adjuvanted, quadrivalent, PF 2 completed Kurt Meath null, [facility] 09/09/2024 10:52:31 COVID-19, mRNA, LNP-S, PF, 30 mcg/0.3 mL dose 1 completed Kurt Meath null, [facility] 09/09/2024 10:52:31 COVID-19, mRNA, LNP-S, PF, 30 mcg/0.3 mL dose 1 completed Kurt Meath null, [facility] 09/09/2024 10:52:31 COVID-19, mRNA, LNP-S, PF, 30 mcg/0.3 mL dose 1 completed Kurt Meath null, [facility] 09/09/2024 10:52:31 COVID-19, mRNA, LNP-S, bivalent, PF, 30 mcg/0.3 mL dose 2 completed Kurt Meath null, [facility] 09/09/2024 10:52:31 RSV, recombinant, protein subunit RSVpreF, adjuvant reconstituted, 0.5 mL, PF 4 completed Kurt Meath null, [facility] 09/09/2024 10:52:31 COVID-19, mRNA, LNP-S, PF, 50 mcg/0.5 mL 4 completed Kurt Meath null, [facility] 09/09/2024 10:52:31 COVID-19, mRNA, LNP-S, PF, 50 mcg/0.5 mL 3 completed Kurt Meath null, [facility] 09/09/2024 10:52:31 pneumococcal polysaccharide PPV23 8 completed Kurt Meath null, [facility] 09/09/2024 10:52:31 Tdap 6 completed Kurt Meath null, [facility] 09/09/2024 10:52:31 Pneumococcal conjugate PCV 13 7 completed Kurt Meath null, [facility] 09/09/2024 10:52:31 zoster live 7 completed Kurt Meath null, [facility] 09/09/2024 10:52:31 Influenza, high-dose, trivalent, PF 8 completed Kurt Meath null, [facility] 09/09/2024 10:52:31 Influenza, high-dose, trivalent, PF 7 completed Kurt Meath null, [facility] 09/09/2024 10:52:31 Influenza, high-dose, trivalent, PF 9 completed Kurt Meath null, [facility] 09/09/2024 10:52:31 Td (adult), 2 Lf tetanus toxoid, preservative free, adsorbed 5 completed Kurt Meath null, [facility] 09/09/2024 10:52:31 Hep A, adult 3 completed Kurt Meath null, [facility] 09/09/2024 10:52:31 typhoid, ViCPs 3 completed Kurt Meath null, [facility] 09/09/2024 10:52:31 influenza, seasonal, intradermal, preservative free 2 completed Kurt Meath null, [facility] 09/09/2024 10:52:31 influenza, seasonal, intradermal, preservative free 1 completed Kurt rajan, [facility] 09/09/2024 10:52:31 Influenza, split virus, quadrivalent, PF 6 completed Kurt Gasparh null, [facility] 09/09/2024 10:52:31 Influenza, split virus, quadrivalent, PF 4 completed Kurt Gasparh null, [facility] 09/09/2024 10:52:31 Past Encounters Encounter ID Performer Location Encounter Start Date Encounter Closed Date Diagnosis/Indication Diagnosis SNOMED-CT Code Diagnosis ICD10 Code Diagnosis Note [id number] Dwaine Kong [facility] [address] [address] 09/29/2024 12:37:22 10/12/2024 09:16:29 Lower urinary tract symptoms due to benign prostatic hypertrophy 2273776953 9101 N40.1 Retention of urine 94971 4002 R33.9 [id number] Eleni Thomas [facility] [address] [address] 10/02/2024 11:30:07 10/07/2024 04:01:24 Urinary tract infectious disease 18665074 N39.0 Per UTI/diploma pharmacy technician protocol. UA/UC today. [id number] O[facility] [address] 10/15/2024 13:50:10 10/19/2024 09:45:18 Retention of urine 802872689 R33.9 Lower urin winsome tract symptoms due to benign prostatic hypertrophy 5439290944 9101 N40.1 Renato hematuria 79811855 5 R31.0 Health Concerns Section Related Observation LastModified by Organization Detai ls LastModified Time None Recorded Concern Status LastModified by Organization Details LastModified Time None Recorded Payers Encounter Date Sequence Insurance Name Policy Number Policy Bustamante Covered Member ID Bustamante Member ID Guarantor Name 10/15/2024 1 [place] [employer] Suresh Martinez [id number] Suresh H Michelle 10/15/2024 2 [facility] [id number] Suresh Martinez [id number] Suresh Martinez Notes Date Note Type Note Provider Name and Address Organization Details Recorded Time 10/15/2024 text/html This is a 74 yea r old male who is referred for the evaluation and management of urinary retention and gross hematuria. He presented for the evaluation of worsening voiding symptoms.He was found to be in urinary retention and he was catheterized.He returned shortly thereafter with repeat retention.A Fragoso was placed with 2.0 liters of output and he developed gross hematuria and was admitted at [facility] for continuous bladder irrigation.He has failed attempted voiding trials despite medical therapy.He underwent an office cystoscopy on 09/09/2024 which showed massive prostate enlargement with obstruction but no signs of malignancy.He completed a CT urogram on 09/23/2024 which showed bladder wall thickening but was otherwise negative for malignancy.He underwent urodynamics studies on 09/29/2024 which showed preserved bladder function with evidence of outlet obstruction.He was admitted at [facility] from 10/06/2024 - 10/10/2024 with gross hematuria and clot urinary retention.He required cystoscopy, clot evacuation, and fulguration of bleeding 10/08/2024.He is here today to discuss next steps in management. Obey Pedraza MD [address], [place], [address], [facility] 10/15/2024 14:28:58
--- OUTSIDE RECORDS SUMMARY | 2024-10-25 01:54 | XMS_ITS | Clinical Summary ---
Author Organization [facility] Address [address] [place] [id number] Care Team Providers Care Research Development Director Name Role Phone Santi Juarez MD Primary Care Provider [phone] Allergies Active Allergy Reactions Criticality Noted Date Comments Bee Pollen *Unknown 12/18/2004 Venom-Honey Bee Anaphylaxis High 04/18/2015 Penicillins *Unknown - Follow up needed 04/18/2015 ##No similarities in side chains, very low to no risk of cross-sensitivity to ANCEF. ANW Antimicrobial Stewardship Team 05/2019 Medications EPINEPHrine (EpiPen 2-Tae) 0.3 mg/0.3 mL injectionIndicatio ns:anaphylaxis Inject 0.3 mg intramuscular each time if needed. Active atorvastatin (LIPITOR) 40 mg tabletIndications: hypercholesterolem ia Take by mouth once daily in the evening. Active glipiZIDE extended-release (GLUCOTROL XL) 5 mg Extended-Release tabletIndications: type 2 diabetes mellitus Take by mouth once daily before a meal. Active metFORMIN (GLUCOPHAGE XR) 500 mg Extended-Release tabletIndications: type 2 diabetes mellitus Take 1,000 mg by mouth once daily. Active lisinopriL (PRINIVIL; ZESTRIL) 10 mg tabletIndications: hypertension Take 10 mg by mouth once daily. Active tamsulosin (Flomax) 0.4 mg capsuleIndications :benign prostatic hyperplasia with lower urinary tract sx Take 0.4 mg by mouth once daily after a meal. Active dilTIAZem SR (CARDIZEM SR) 60 mg extended release 12 hr capsuleIndications :ventricular rate control in atrial fibrillation Take 60 mg by mouth two times daily. Active amLODIPine (Norvasc) 10 mg tabletIndications: hypertension Take 10 mg by mouth once daily. Active apixaban (ELIQUIS) 5 mg tabletIndications: prevent thromboembolism in chronic atrial fibrillation Take 1 Tablet (5 mg) by mouth two times daily. Active BD ULTRA FINE LANCETS MISC Use as directed 2024 Discontinued (Pharmacist change per medication history (E-cancel not sent)) blood sugar diagnostic (TRUETEST TEST STRIPS) strip Test once daily, varying the times from before breakfast to 2 hours after starting a meal 2024 Discontinued (Pharmacist change per medication history (E-cancel not sent)) amLODIPine (NORVASC) 5 mg tablet Take 2 tablets by mouth once daily. 0 018 2024 Discontinued (Reorder (E-cancel not sent)) chlorthalidone (HYGROTON) 25 mg tablet Take 12.5 mg by mouth once daily. 2024 Discontinued (*Patient states no longer taking) aspirin chewable 81 mg chewable tablet Chew 81 mg by mouth once daily with a meal. 2024 Discontinued (Pharmacist change per medication history (E-cancel not sent)) glimepiride (AMARYL) 2 mg tablet 021 2024 Discontinued (*Patient states no longer taking) polyethylene glycol-electrolyte (GOLYTELY) 236-22.74-6.74 -5.86 gram suspensionIndicati ons:Adenomatous polyp of colon, unspecified part of colon Drink 2 liters the day before the procedure and 2 liters 6 hours prior to procedure. 4000 mL 023 2024 Discontinued (Pharmacist change per medication history (E-cancel not sent)) digoxin (LANOXIN) 125 mcg (0.125 mg) tablet Take 125 mcg by mouth once daily. 2024 Discontinued (*IP Discontinued ) cephalexin 500 mg capsuleIndications :urinary tract infection Take 1 Capsule (500 mg) by mouth three times daily for 2 days. 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 Diabetes mellitus 04/18/2015 Gout 04/18/2015 Hematuria 04/18/2015 Hypercholesterolemia 04/18/2015 HTN (hypertension) 04/18/2015 Encounters Date Type Department Care Team Description 10/08/2024 3:37 PM DIVERSIONAL THERAPIST'S ASSISTANT Anesthesia Event [address] [address] Cecilia Patel MD Wagner, Stephen Robert, MD 10/08/2024 3:25 PM DIVERSIONAL THERAPIST'S ASSISTANT - 10/08/2024 5:03 PM DIVERSIONAL THERAPIST'S ASSISTANT Surgery [address] [address] Marcia Epstein MD CYSTOSCOPY, CLOT EVACUATION, FULGURATION 10/06/2024 2:08 PM DIVERSIONAL THERAPIST'S ASSISTANT - 10/10/2024 12:06 PM DIVERSIONAL THERAPIST'S ASSISTANT Hospital Encounter [address] [address] s, U Hospitalist Abhi Álvarez MD Atrial fibrillation, unspecified type (HC) (Primary Dx); Benign prostatic hyperplasia with lower urinary tract symptoms, symptom details unspecified Discharge Disposition: Home Self Care 10/06/2024 Travel 09/24/2024 Transcribe Orders [facility] [address] [place] [address] Doug Dia MD 09/23/2024 Transcribe Orders [facility] [place] [phone] Shaun Baer MD 08/28/2024 3:00 PM DIVERSIONAL THERAPIST'S ASSISTANT Ancillary Procedure [facility] [address] [place] [address] 08/27/2024 Telephone [facility] [address] [place] [address] Harvey Gonzalez MD from Last 3 Months Immunizations Immunization Administration Dates Next Due Influenza Virus, Unspecified 05/19/2014,05/11/20 12,05/14/2011 Tdap 11/17/2004 Social History Tobacco Use Types Packs/Day Years Used Date Smoking Tobacco: Former Cigarettes 1 40 0 02/01/1981 - 02/01/2021 Smokeless Tobacco: Never Tobacco Cessation:Counseling Given: Not Answered Comments:pack a day Alcohol Use Standard Drinks/Week Comments Not Currently 0 (1 standard drink = 0.6 oz pur e alcohol) not for 5 years Social Connections Answer Date Recorded Do you often feel lonely or isolated from those around you? 0 10/06/2024 Financial Resource Strain Answer Date R ecorded Difficulty of Paying Living Expenses 3 10/06/2024 Difficulty of Paying Living Expenses Not on file 10/06/2024 Food Insecurity Answer Date Recorded Do you worry your food will run out before you are able to buy more? 1 10/06/2024 Transportation Needs Answer Date Record ed Does lack of transportation keep you from medica l appointments? 1 10/06/2024 Does lack of transportation keep you from work, meetings or getting things that you need? 1 10/06/2024 Housing Stability Answer Date Recorded What is your housing situation today? 1 10/06/2024 Interpersonal Safety Answer Date Record ed Are you being hit, kicked, p ushed or yelled at (see row info)? No 10/06/2024 Interpersonal Safety Abuse 12 - 18 Not on file 10/06/2024 Interpersonal Safety Ambulatory Vulnerability No t on file 10/06/2024 Utilities Answer Date Recorded Do you have trouble paying f or utilities (for example, heat, electricity, water, phone)? 1 10/06/2024 Sex and Gender Information Value Date Recorded Sex Assigned at Not on file Legal Sex Male 7:26 PM DIVERSIONAL THERAPIST'S ASSISTANT Gender Identity Not on file Sexual Orientation Not on file Obstetrics History Last Filed Vital Signs Vital Sign Reading Time Taken Comments Blood Pressure 144/66 10/10/2024 7:21 AM DIVERSIONAL THERAPIST'S ASSISTANT Pulse 58 10/10/2024 7:21 AM DIVERSIONAL THERAPIST'S ASSISTANT Temperature 36.4 C (97.5 F) 10/10/2024 7:21 AM DIVERSIONAL THERAPIST'S ASSISTANT Respiratory Rate 17 10/10/2024 7:21 AM DIVERSIONAL THERAPIST'S ASSISTANT Oxygen Saturation 96% 10/10/2024 7:21 AM DIVERSIONAL THERAPIST'S ASSISTANT Inhaled Oxygen Concentration - - Weight 73.9 kg (163 lb) 10/09/2024 5:08 AM DIVERSIONAL THERAPIST'S ASSISTANT Height 188 cm (6' 2) 10/09/2024 5:08 AM DIVERSIONAL THERAPIST'S ASSISTANT Body Mass Index 20.93 10/09/2024 5:08 AM DIVERSIONAL THERAPIST'S ASSISTANT Plan of Treatment Health Maintenance Due Date [...] for age 18+ 12/09/2021 12/09/2020, 12/07/2020 Influenza Vaccine (#1) 2024 4, 05/11/2012, 05/14/2011 COVID-19 vaccine series ( season) 2024 04/16/2024, 05/08/2022, 06/01/2021, Additional history exists Colonoscopy through age 75 04/03/202804/03, 04/03/2023, 04/01/2018, Additional history exists Tdap Completed 11/17/2004 AAA screening age 65-74 Completed 12/09/2020 Medical Devices Implanted Type Area Sample Sewer Device Identifier Shelf Expiration Date Model / Serial / Lot Tissue Pericardium 0.8x8cm Xenosure - [id number] Implanted:Qty: 1 on 01/03/2021 by Warren Peña MD at [facility] Right: Carotid Artery [employer] 08/08/2026 0.8P8 / / [id number] Procedures Procedure Name Priority Date/Time Associated Diagnosis Comments HEMOGLOBIN Early AM 10/10/2024 7:27 AM DIVERSIONAL THERAPIST'S ASSISTANT GLUCOSE METER Timed 10/10/2024 7:23 AM DIVERSIONAL THERAPIST'S ASSISTANT GLUCOSE METER Timed 10/09/2024 9:12 PM DIVERSIONAL THERAPIST'S ASSISTANT GLUCOSE METER Timed 10/09/2024 4:48 PM DIVERSIONAL THERAPIST'S ASSISTANT GLUCOSE METER Timed 10/09/2024 11:35 AM DIVERSIONAL THERAPIST'S ASSISTANT GLUCOSE METER Timed 10/09/2024 6:42 AM DIVERSIONAL THERAPIST'S ASSISTANT HEMOGLOBIN Timed 10/09/2024 6:38 AM DIVERSIONAL THERAPIST'S ASSISTANT GLUCOSE METER Timed 10/08/2024 9:08 PM DIVERSIONAL THERAPIST'S ASSISTANT HEMOGLOBIN Timed 10/08/2024 6:56 PM DIVERSIONAL THERAPIST'S ASSISTANT GLUCOSE METER Timed 10/08/2024 6:40 PM DIVERSIONAL THERAPIST'S ASSISTANT EKG 12 LEAD STAT 10/08/2024 6:34 PM DIVERSIONAL THERAPIST'S ASSISTANT GLUCOSE METER Timed 10/08/2024 5:51 PM DIVERSIONAL THERAPIST'S ASSISTANT GLUCOSE METER Timed 10/08/2024 4:43 PM DIVERSIONAL THERAPIST'S ASSISTANT SUPRAGLOTTIC-LMA Routine 10/08/2024 4:09 PM DIVERSIONAL THERAPIST'S ASSISTANT CYSTOSCOPY EVACUATION BLADDER CLOTS 10/08/2024 3:27 PM DIVERSIONAL THERAPIST'S ASSISTANT Gross hematuria GLUCOSE METER Timed 10/08/2024 3:20 PM DIVERSIONAL THERAPIST'S ASSISTANT GLUCOSE METER Timed 10/08/2024 11:50 AM DIVERSIONAL THERAPIST'S ASSISTANT SCAN CORRESP-LABORATORY RESULTS 10/08/2024 10:55 AM DIVERSIONAL THERAPIST'S ASSISTANT GLUCOSE METER Timed 10/08/2024 6:37 AM DIVERSIONAL THERAPIST'S ASSISTANT HEMOGLOBIN Early AM 10/08/2024 6:04 AM DIVERSIONAL THERAPIST'S ASSISTANT GLUCOSE METER Timed 10/07/2024 11:53 PM DIVERSIONAL THERAPIST'S ASSISTANT GLUCOSE METER Timed 10/07/2024 9:08 PM DIVERSIONAL THERAPIST'S ASSISTANT GLUCOSE METER Timed 10/07/2024 5:14 PM DIVERSIONAL THERAPIST'S ASSISTANT US RENAL AND BLADDER COMPLETE TYLER 10/07/2024 12:04 PM DIVERSIONAL THERAPIST'S ASSISTANT GLUCOSE METER Timed 10/07/2024 11:34 AM DIVERSIONAL THERAPIST'S ASSISTANT GLUCOSE METER Timed 10/07/2024 8:07 AM DIVERSIONAL THERAPIST'S ASSISTANT HEMOGLOBIN Timed 10/07/2024 6:45 AM DIVERSIONAL THERAPIST'S ASSISTANT HEMOGLOBIN Timed 10/06/2024 11:29 PM DIVERSIONAL THERAPIST'S ASSISTANT GLUCOSE METER Timed 10/06/2024 9:13 PM DIVERSIONAL THERAPIST'S ASSISTANT GLUCOSE METER Timed 10/06/2024 5:11 PM DIVERSIONAL THERAPIST'S ASSISTANT TYPE & SCREEN Today 10/06/2024 4:12 PM DIVERSIONAL THERAPIST'S ASSISTANT BASIC METABOLIC PANEL Today 10/06/2024 4:12 PM DIVERSIONAL THERAPIST'S ASSISTANT PLATELET COUNT Today 10/06/2024 4:12 PM DIVERSIONAL THERAPIST'S ASSISTANT HEMOGLOBIN Timed 10/06/2024 4:12 PM DIVERSIONAL THERAPIST'S ASSISTANT HEMOGLOBIN A1C MONITORING (POCT) Today 10/06/2024 4:12 PM DIVERSIONAL THERAPIST'S ASSISTANT SCAN-CARDIAC STRIP 10/06/2024 12 :00 AM DIVERSIONAL THERAPIST'S ASSISTANT ECHO TTE COMPLETE WO CONTRAST Routine 08/28/2024 1:07 PM DIVERSIONAL THERAPIST'S ASSISTANT New onset a-fib (HC) COLONOSCOPY 04/03/2023 9:22 AM CDT US ABD AORTA SCREENING Routine 12/09/2020 9:28 AM CDT HTN (hypertension) from Last 3 Months or Most Recently Relevant to Health Maintenance Results * (ABNORMAL) HEMOGLOBIN (10/10/2024 7:27 AM DIVERSIONAL THERAPIST'S ASSISTANT) Only the most recent of7 resultswithin the time period is included. HEMOGLOBIN 8.3(L) 13.5 - 17.5 g/dL 10/10/2024 7:41 AM DIVERSIONAL THERAPIST'S ASSISTANT [facility] MCV 84 80 - 100 fL 10/10/2024 7:41 AM DIVERSIONAL THERAPIST'S ASSISTANT [facility] Blood BLOOD SPECIMEN / Unknown Venipuncture / Unknown 10/10/2024 7:27 AM DIVERSIONAL THERAPIST'S ASSISTANT 10/10/2024 7:36 AM DIVERSIONAL THERAPIST'S ASSISTANT Abhi Vogel MD HEMATOLOGY Final Re sult Performing Organization Address [facility]/ZIP Co de Phone Number [facility] SENDOUT INTERNAL ZIP [id number] [place] [phone] * (ABNORMAL) GLUCOSE METER (10/10/2024 7:23 AM DIVERSIONAL THERAPIST'S ASSISTANT) Only the most recent of19 resultswithin the time period is included. [facility] GLUCOSE METER 166(H) 65 - 100 mg/dL 10/10/2024 7:27 AM [facility] Blood BLOOD SPECIMEN / Unknown 10/10/2024 7:23 AM DIVERSIONAL THERAPIST'S ASSISTANT 10/10/2024 7:27 AM DIVERSIONAL THERAPIST'S ASSISTANT Abhi Vogel MD CHEMISTRY Final Re sult [facility] SENDOUT INTERNAL ZIP [id number] [place] [phone] * 12 Lead EKG - PRN (10/08/2024 6:34 PM DIVERSIONAL THERAPIST'S ASSISTANT) Pathologist [facility] Interpretation Normal sinus rhythm Anterior infarct , age undetermined Abnormal ECG When compared with ECG of 07-Dec-2020 07:49, Anterior infarct is now Present T wave inversion now evident in Inferior leads BEYOND NOW Ventricular Rate 62 BPM BEYOND NOW Atrial Rate 62 BPM BEYOND NOW P-R Interval 184 ms BEYOND NOW QRS Duration 82 ms BEYOND NOW QT 404 ms BEYOND NOW QTc 410 ms BEYOND NOW P Driscoll 100 degrees BEYOND NOW R Driscoll -4 degrees BEYOND NOW T Driscoll -7 degrees BEYOND NOW 10/08/2024 6:34 PM DIVERSIONAL THERAPIST'S ASSISTANT 10/09/2024 8:13 AM DIVERSIONAL THERAPIST'S ASSISTANT us Abhi Vogel MD EKG ORD Final Re sult BEYOND NOW [place], [place] * HCHG MASK PR5 (10/08/2024 4:09 PM DIVERSIONAL THERAPIST'S ASSISTANT) Narrative Luís Khalil CRNA - 10/08/2024 4:09 PM DIVERSIONAL THERAPIST'S ASSISTANT Luís Khalil CRNA 10/08/2024 4:09 PM Procedure: Supraglottic Patient location during procedure: OR Supraglottic Airway Properties Mask Ventilation: not attempted Type: unique Tube Size: 5 Insertion Attempts: 1 Placement Verification: auscultation and CO2 detection Assessment Assessment: atraumatic and dentition unchanged Airway Intervention: cuff Pressure within defined and secured us Cecilia Patel MD ANESTHESIA PX NOTE ORDERABLES Edited Result - Final * SCAN CORRESP-LABORATORY RESULTS (10/08/2024 10:55 AM DIVERSIONAL THERAPIST'S ASSISTANT) Narrative 10/08/2024 10:55 AM DIVERSIONAL THERAPIST'S ASSISTANT Ordered by an unspecified provider. us Other Clinical Staff OTHER Final Resul t * US RENAL AND BLADDER COMPLETE (10/07/2024 12:04 PM DIVERSIONAL THERAPIST'S ASSISTANT) Anatomical Region Laterality Modality Abdomen, AORTA, KIDNEYS Ultrasou nd 10/07/2024 12:0 4 PM DIVERSIONAL THERAPIST'S ASSISTANT Impressions 10/07/2024 12:12 PM DIVERSIONAL THERAPIST'S ASSISTANT 1. Normal kidney ultrasound. 2. Decompressed urinary bladder with Fragoso catheter in place. Narrative 10/07/2024 12:12 PM DIVERSIONAL THERAPIST'S ASSISTANT For Patients: As a result of the Century Cures Act, medical imaging exams and procedure reports are released immediately into your electronic medical record. You may view this report before your referring provider. If you have questions, please contact your health care provider. EXAM: US RENAL AND BLADDER COMPLETE LOCATION: [facility] DATE: 10/07/2024 INDICATION: Hematuria COMPARISON: None. TECHNIQUE: Routine Bilateral Renal and Bladder Ultrasound. FINDINGS: RIGHT KIDNEY: 11.2 x 4.5 x 5.3 cm. Normal without hydronephrosis or masses. LEFT KIDNEY: 12.0 x 5.0 x 4.3 cm. Normal without hydronephrosis or masses. BLADDER: Decompressed with urinary catheter in place. Procedure Note Carl Winters MD - 10/07/2024 For Patients: As a result of the Cures Act, medical imagingexams and procedure reports are released immediately into your electronicmedical record. You may view this report before your referring provider.If you have questions, please contact your health care provider. EXAM: US RENAL AND BLADDER COMPLETE LOCATION: [facility]AG[facility] DATE: 10/07/2024 INDICATION: Hematuria COMPARISON: None. TECHNIQUE: Routine Bilateral Renal and Bladder Ultrasound. FINDINGS: RIGHT KIDNEY: 11.2 x 4.5 x 5.3 cm. Normal without hydronephrosis ormasses. LEFT KIDNEY: 12.0 x 5.0 x 4.3 cm. Normal without hydronephrosis or masses. BLADDER: Decompressed with urinary catheter in place. IMPRESSION: 1. Normal kidney ultrasound. 2. Decompressed urinary bladder with Fragoso catheter in place. Bel OLIVEIRA US Final Res ult * TYPE & SCREEN (10/06/2024 4:12 PM DIVERSIONAL THERAPIST'S ASSISTANT) ABORH AB Rh Positive 10/06/2024 5:21 PM DIVERSIONAL THERAPIST'S ASSISTANT [facility] BLOOD BANK ANTIBODY SCREEN Negative Negative 10/06/2024 5:21 PM DIVERSIONAL THERAPIST'S ASSISTANT [facility] BLOOD BANK SPECIMEN EXPIRATION DATE/TIME 10/09/24 23:59 10/06/2024 5:21 PM DIVERSIONAL THERAPIST'S ASSISTANT [facility] BLOOD BANK Blood BLOOD SPECIMEN / Unknown Venipuncture / Unknown 10/06/2024 4:12 PM DIVERSIONAL THERAPIST'S ASSISTANT 10/06/2024 4:27 PM DIVERSIONAL THERAPIST'S ASSISTANT Abhi Vogel MD BLOOD BANK Final Re sult [facility] BLOOD BANK [address] [place] [phone] * PLATELET COUNT (10/06/2024 4:12 PM DIVERSIONAL THERAPIST'S ASSISTANT) Pathologist [facility] PLATELET COUNT 224 140 - 440 thou/cu mm 10/06/2024 4:29 PM DIVERSIONAL THERAPIST'S ASSISTANT [facility] MPV 10.0 6.5 - 11.0 fL 10/06/2024 4:29 PM DIVERSIONAL THERAPIST'S ASSISTANT [facility] Blood BLOOD SPECIMEN / Unknown Venipuncture / Unknown 10/06/2024 4:12 PM DIVERSIONAL THERAPIST'S ASSISTANT 10/06/2024 4:27 PM DIVERSIONAL THERAPIST'S ASSISTANT Abhi Vogel MD HEMATOLOGY Final Re sult [facility] SENDOUT INTERNAL ZIP [id number] [place] [phone] * Hemoglobin A1C (10/06/2024 4:12 PM DIVERSIONAL THERAPIST'S ASSISTANT) Pathologist [facility] HEMOGLOBIN A1C MONITORING (POCT) 6.3 <=6.4 % 10/06/2024 6:05 PM DIVERSIONAL THERAPIST'S ASSISTANT [facility] Blood BLOOD SPECIMEN / Unknown Venipuncture / Unknown 10/06/2024 4:12 PM DIVERSIONAL THERAPIST'S ASSISTANT 10/06/2024 4:27 PM DIVERSIONAL THERAPIST'S ASSISTANT Narrative [facility] - 10/06/2024 6:05 PM DIVERSIONAL THERAPIST'S ASSISTANT (<=6.9%) Indicates good control (7.0% to 7.9%) Indicates fair control (>=8.0%) Indicates poor control NOTE: These thresholds are guidelines and individual targets may vary. Falsely low levels may be seen with: Recent Transfusion, Recent Significant Blood Loss, Hemolytic Diseases, or Falsely elevated levels may be seen with: Untreated Anemias, Splenectomy Abhi Vogel MD CHEMISTRY Final Re sult [facility] SENDOUT INTERNAL ZIP [phone] [place] [address] * (ABNORMAL) BASIC METABOLIC PANEL (10/06/2024 4:12 PM DIVERSIONAL THERAPIST'S ASSISTANT) Pathologist [facility] SODIUM 134(L) 136 - 145 mmol/L 10/06/2024 4:49 PM [facility] POTASSIUM 3.9 3.5 - 5.1 mmol/L 10/06/2024 4:49 PM [facility] CHLORIDE 100 98 - 107 mmol/L 10/06/2024 4:49 PM [facility] CO2,TOTAL 24 22 - 29 mmol/L 10/06/2024 4:49 PM [facility] ANION GAP 10 5 - 18 10/06/2024 4:49 PM [facility] GLUCOSE 125(H) 70 - 99 mg/dL 10/06/2024 4:49 PM [facility] CALCIUM 8.8 8.8 - 10.4 mg/dL 10/06/2024 4:49 PM [facility] Comment: Reference ranges for this test were updated on 06/16/2024 to reflect our healthy population more accurately. Reference range changes are not retroactively applied to results, but previous results using the same methodology can be interpreted in the context of the new reference range. BUN 17 8 - 23 mg/dL 10/06/2024 4:49 PM [facility] CREATININE 0.76 0.70 - 1.20 mg/dL 10/06/2024 4:49 PM [facility] BUN/CREAT RATIO 22(H) 10 - 20 4:49 PM [facility] eGFR >90 >90 mL/min/1. 73m2 10/06/2024 4:49 PM [facility] Comment:As of 2021, eG FR is calculated by the CKD-EPI creatinine equation without race adjustment. eGFR can be influenced by muscle mass, exercise, and diet. The reported eGFR is an estimation only and is only applicable if the renal function is stable. Blood BLOOD SPECIMEN / Unknown Venipuncture / Unknown 10/06/2024 4:12 PM DIVERSIONAL THERAPIST'S ASSISTANT 10/06/2024 4:27 PM DIVERSIONAL THERAPIST'S ASSISTANT us Abhi Vogel MD CHEMISTRY Final Re sult [facility] SENDOUT INTERNAL ZIP [phone] [place] [address] * SCAN-CARDIAC STRIP (10/06/2024 12:00 AM DIVERSIONAL THERAPIST'S ASSISTANT) Narrative 10/06/2024 12:00 AM DIVERSIONAL THERAPIST'S ASSISTANT Ordered by an unspecified provider. us Other Clinical Staff OTHER Final Resul t * ECHO TTE COMPLETE WO CONTRAST (08/28/2024 1:07 PM DIVERSIONAL THERAPIST'S ASSISTANT) AORTIC VALVE MEAN PG 5 mmHg EJECTION FRACTION 67 % PEAK TR VELOCITY 2.7 m/s LVEDD 3.8 cm EJECTION FRACTION 60 - 65% Anatomical Region Laterality Modality Ultrasound 08/28/2024 10:4 4 AM DIVERSIONAL THERAPIST'S ASSISTANT Narrative 08/28/2024 1:14 PM DIVERSIONAL THERAPIST'S ASSISTANT ECHOCARDIOGRAM SURESH MOLINA : 1950 74 years Study Date: 08/28/2024 10:44:58 AM Gender: M BP: 179/93 mmHg Height: 188.00 cm BSA: 2.10 m Weight: 84.00 kg Tech: SEN Referring MD: LEOPOLDO MUÑIZ Site: [facility] Reading Location: Mobile- [...] . This study was interpreted by an [facility] accredited facility. CC: [facility] (med records) [facility], Med/Surg - IP [facility]. Final Procedure Note Joyn Donato MD - 08/28/2024 ECHOCARDIOGRAM SURESH MOLINA : 1950 74 years Study Date: 08/28/2024 10:44:58 AM Gender: M BP: 179/93 mmHg Height: 188.00 cm BSA: 2.10 m Weight: 84.00 kg Tech: NWA Referring MD: LEOPOLDO MUÑIZ Site: [facility] Reading Location: [place]- Patient Location: Inpatient. Procedure: 2D, Color Doppler [...] interpreted by an [facility] accredited facility. CC: [facility] (med records) [facility], Med/Surg - IP [facility]. Final us Leopoldo OLIVEIRA ECHO ORD Final Result * [...] candidate for conscious sedation. The endoscope [id number] was passed through the anus andadvanced to [...] 9:22 AM Procedure Code(s): --- Professional --- 16429, Colonoscopy, flexible; with removalof tumor(s), polyp(s), or other lesion(s) bysnare technique Diagnosis Code(s): --- Professional --- Z86.010, Personal history of colonicpolyps D12.2, Benign neoplasm of ascending colon K57.30, Diverticulosis of large intestine without perforation or abscess withoutbleeding CPT copyright 2021 [employer]. All rights reserved. The codes documented in this report are preliminary and upon core extruder reviewmay be revised to meet current compliance requirements. Scope In: 10:44:45 AM Scope Withdrawal Time 0 hours 10 minutes 40 seconds Scope Out: 10:59:10 AM us Moi Lui MD PROCEDURE ORD Final Res ult * US ABD AORTA SCREENING (12/09/2020 9:28 AM CDT) Anatomical Region Laterality Modality Abdomen, AORTA Ultrasound 12/09/2020 9:05 AM CDT Narrative 12/10/2020 12:40 PM CDT VASCULAR ULTRASOUND REPORT SURESH MOLINA : 1950 Study Date: 12/09/2020 9:05:56 AM Age: 70 years Tech: Elo Juarez Gender: M Referring MD: WARREN PEÑA Site: [facility] Study performed: Iliac, (bilateral) Indication for study: AAA screening. Study Quality: Good Other History: HTN (hypertension) TECHNIQUE: The abdominal aorta and iliac arteries were examined with duplex ultrasound, color-flow and spectral Doppler. Bypass grafts and/or stents if present are evaluated per exam protocol. Vessel size, peak systolic velocity (PSV) and velocity ratios if applicable, were obtained and documented at sites per exam protocol. IMPRESSION: 1. No evidence of aneurysm or occlusion in aorta. 2. 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 3. Left common iliac artery is patent and nonaneurysmal. COMPARISON: No prior study available for comparison. FINDINGS: No evidence of AAA with triphasic Doppler waveforms seen in aorta and iliac arteries. Calcific plaquing noted throughout aorta and bilateral iliacs. Elevated velocities of 189 cm/s and a velocity ratio of 2.3 noted in the right iliac artery. This is suggestive of a 50-74% stenosis. Left iliac artery tortuosity noted. MEASUREMENTS: + +--------+-------+ +---------+ TRV (cm) AP (cm) PSV (cm/s) Phasicity + +--------+-------+ +---------+ Suprarenal aorta 2.50 2.40 69 triphasic + +--------+-------+ +---------+ Juxtarenal aorta 1.80 1.80 124 triphasic + +--------+-------+ +---------+ Infrarenal aorta 1.60 1.60 82 triphasic + +--------+-------+ +---------+ Right common iliac 1.10 1.10 189 stenotic + +--------+-------+ +---------+ Left common iliac 1.40 1.40 94 triphasic + +--------+-------+ +---------+ Valdemar Sandoval MD. Electronically signed on 12/10/2020 12:40:26 PM This study was performed and interpreted by [facility], a service accredited by the Intersocietal Accreditation Commission (IAC/Vascular), [email or web address].org/vascular Report generated by orderTalk. Final Procedure Note Valdemar Sandoval MD - 12/10/2020 VASCULAR ULTRASOUND REPORT SURESH MOLINA : 1950 Study Date: 12/09/2020 9:05:56 AM Age: 70 years Tech: Elo Juarez Gender: M Referring MD: WARREN PEÑA Site: [facility] Study performed: Iliac, (bilateral) Indication for study: AAA screening. Study Quality: Good Other History: HTN (hypertension) TECHNIQUE: The abdominal aorta and iliac arteries were examined with duplexultrasound, color-flow and spectral Doppler. Bypass grafts and/or stentsif present are evaluated per exam protocol. Vessel size, peak systolicvelocity (PSV) and velocity ratios if applicable, were obtained anddocumented at sites per exam protocol. IMPRESSION: 1. No evidence of aneurysm or occlusion in aorta. 2. 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 3. Left common iliac artery is patent and nonaneurysmal. COMPARISON: No prior study available for comparison. FINDINGS: No evidence of AAA with triphasic Doppler waveforms seen in aorta andiliac arteries. Calcific plaquing noted throughout aorta and bilateral iliacs. Elevated velocities of 189 cm/s and a velocity ratio of 2.3 noted in theright iliac artery. This is suggestive of a 50-74% stenosis. Left iliac artery tortuosity noted. MEASUREMENTS: + +--------+-------+ +---------+ TRV (cm) AP (cm) PSV (cm/s) Phasicity + +--------+-------+ +---------+ Suprarenal aorta 2.50 2.40 69 triphasic + +--------+-------+ +---------+ Juxtarenal aorta 1.80 1.80 124 triphasic + +--------+-------+ +---------+ Infrarenal aorta 1.60 1.60 82 triphasic + +--------+-------+ +---------+ Right common iliac 1.10 1.10 189 stenotic + +--------+-------+ +---------+ Left common iliac 1.40 1.40 94 triphasic + +--------+-------+ +---------+ Valdemar Sandoval MD. Electronically signed on 12/10/2020 12:40:26 PM This study was performed and interpreted by [facility], a service accredited by the Intersocietal Accreditation Commission (IAC/Vascular),[email or web address]/vascular Report generated by orderTalk. Final us Warren Peña MD Fi nal Result from Last 3 Months or Most Recently Relevant to Health Maintenance Insurance PREFERRED ONE [facility] MEDICARE PART B HB ONLY [facility] MEDICARE PB ONLY MEDICARE PART A HB ONLY Advance Directives * Full Code (Latest Code Status on File) Date Activated Date Inactivated Comments 10/06/2024 2:51 PM 10/10/2024 2:11 PM Question Answer Comments Code Status Discussion: Reviewed Preferences * Full Code Date Activated Date Inactivated Comments 01/03/2021 6:00 AM 01/04/2021 1:54 PM Question Answer Comments Code Status Discussion: Not Discussed Care Teams Research Development Director Relationship Specialty Start Date End Date Santi Juarez MD [address] [place] [address] PCP - General Family Practice 12/07/20
--- OUTSIDE RECORDS SUMMARY | 2024-10-25 01:54 | XMS_ITS | Data Portability ---
Author Organization [facility], [facility] Address [address] [place] [address] Care Team Providers Care Building Principal Name Role Phone DOMI SHEA Primary Care Provider [phone] Assessment Encounter Date Assessment Date Assessment LastModified by Organization Details LastModified Time 09/09/2024 09/09/2024 74 year old male with a history of benign prostatic hyperplasia with lower urinary tract symptoms , gross hematuria, and urinary retention. Not available 09/09/2024 11:12:08 10/15/2024 10/15/2024 74 year old male with [...] dipstick - Per UTI protocol 2024 025 [facility], [address], [address], [place], [address], 10/02/2024 11:59:38 urinalysi s, microscop ic [email or web address] [facility], [address], [address], [place], [address], 10/02/2024 11:46:20 culture, urine 2024 025 [facility], [address], [address], [place], [address], 10/04/2024 12:02:22 Referral None recorded. Procedures urodynami c testing, complex (PROC) 2024 025 [email or web address] Not available 09/20/2024 18:38:38 Surgeries laser enucleati on of prostate with morcellat ion (SURG) 2024 025 [email or web address] Not available 10/16/2024 10:36:[address], urogram 2024 025 [facility], [address] [place], [address], 09/23/2024 21:57:47 Medication Orders Macrobid 100 mg capsule [address] [facility], [address] [place] [address], [address], 10/02/2024 11:35:40 Patient TargetsNo targets recorded. Patient Instructions Encounter Date Encounter Id Patient Instructions Last Modified By Organization Details Last Modified Time 09/09/2024 [id number] urodynamic studi es: about these tests Not [...] underlying prostate cancer. Not available 09/09/2024 11:12:41 09/29/2024 [id number] Impression: 1) Smaller capacity, normal compliant bladder with repeated detrusor instability and incontinence 2) No volitional voiding on pressure/flow. MInimal void on non-invasive testing, with elevated residual. 3) The most probable diagnosis is bladder outlet obstruction, as he does not have myogenic failure. [email or web address] Not available 10/11/2024 11:34:10 10/15/2024 [id number] Benign prostatic hyperplasia with lower urinary tract [...] Abnormal Flag Note LastModifiedBy Organization Detail LastModifiedTime 10/02/19 25 10/02/2024 UA MICRO SCOPI C (ABNO RMAL COLOR ) U-WBC 10 - 25 [hpf] 0 - 2 abnormal Not Available [facility] [address], [place], [address], 10/02/2024 11:59:38 10/02/19 25 10/02/2024 UA MICRO SCOPI C (ABNO RMAL COLOR ) U-RBC PACKED [hpf] 0 - 2 abnormal Not Available [facility] [address] [facility] [address], [place], [address], 10/02/2024 11:59:38 10/02/19 25 10/02/2024 UA MICRO SCOPI C (ABNO RMAL COLOR ) bacteria MANY [hpf] none;r are abnormal Not Available [facility] [address], [place], [address], 10/02/2024 11:59:38 10/02/19 25 10/02/2024 UA MICRO [...] menda tions based on the resul t. Pleas e allow up to one week for provi katy revie w. Not Available [facility] [address] [facility], [place], [address], 10/02/2024 11:59:38 10/02/19 25 10/02/2024 UA MICRO SCOPI C (ABNO RMAL COLOR ) sperm PRESEN T /hpf none-s een abnormal Not Available [facility] [address] [facility] [address], [place], [address], 10/02/2024 11:59:38 10/02/19 25 10/02/2024 URINE CULTU RE final report MICROB IOLOGY RESULT S abnormal SOURC E Bladd er Washi ngs KNOWN ALLER GIES penic illin s TREAT MENT none MEDIA PLATE D AT: Media plate d on 2024 @ 11:27 AM COLON Y COUNT 50,00 0-100 ,000 cfu/m l RESUL T Klebs iella oxyto ca (Isol ate 1) Sensi tivit y Ronel sis Justin te 1 ----- ----- ----- ----- ----- ----- ----- - AMOX/ K CLAV <=8/4 *S AMPIC ILLIN 16 R CEFAZ MICHELE 4*S CEFTA ZIDIM E <=1*S CEFTR IAXON E <=1*S CEFUR OXIME 8*S CIPRO FLOXA COOKIE <=0.2 5*S LEVOF LOXAC IN <=0.5 *S NITRO FURAN TOIN <=32* S PIP/T AZO <=16* S TETRA CYCLI NE <=4*S TRIME TH/SHAH LFA <=2/3 8*S Orga nisms that are susce ptibl e to tetra cycli ne are gener ally also susce ptibl e to doxyc yclin e and minoc yclin e. Any subst ituti on of drugs which have not been teste d for sensi tivit y shoul d be consi dered based on appro osmar usage of the drugs . Infor matio n on doxyc yclin e and minoc yclin e can be found in the Physi ninoska' s Desk Refer ence or from the [facility] actur er. S= Susce ptibl e;I= Inter media te;R= Resis tant; ESBL= Resis tance due to confi rmed ESBL; Suspe cted ESBL= Posit cathy scree sanya only This lab resul t is being provi ded to you and your provi katy at the same time in compl iance with the Centu ry Cures Act. Your provi katy may not have had time to revie w and make recom menda tions based on the resul t. Pleas e allow up to one week for provi katy revie w. Not Available [facility] [address], [place], [address], 10/04/2024 12:02:22 09/23/19 25 09/23/2024 CT, urogr am No observ ation record ed. [email or web address] [facility] [address], [place], [address], 10/13/2024 08:55:07 Result Notes None recorded. Problems Name Problem SNOMED Code Status Onset Date Resolution Date Notes Provider Name and Address Organization Details Recorded Time Retention of urine 109463610 Active 2024 RIAZ Jc [facility] 5 12:52:01 Type 2 diabetes mellitus 60830609 Active 2024 RIAZ Jc [facility] 5 12:52:35 Hypertensiv e disorder 89316184 Active 2024 Kurt rajan, [facility] 5 12:52:38 Lower urinary tract symptoms due to benign prostatic hypertrophy 4839710948054 1 Active 2024 Kurt rajan, [facility] 5 10:56:02 Problem Notes None recorded. Procedures Surgical History Date Name Laterality Status Provider Name and Address Organization Details Recorded Time 5 COMPLEX VISIT completed Obey Pedraza MD [address] [place] [address],[address], [place], [address], [facility] 10/15/2024 14:26:19 5 Blood Draw/CUTTER PLASTICS ROLLS/PSA RESULTS cancelled Elo Bishop [facility] 10/05/2024 11:50:19 5 Urodynamic Studies completed Dwaine Kong MD [address] [place] [address],[address], [place], [address], [facility] 10/11/2024 11:34:02 5 Fragoso Catheter Insertion completed Chelsey Munguia [facility] 09/29/2024 15:46:01 5 Cystoscopy- male completed Obey Pedraza MD [address] [place] [address],[address], [place], [address], [facility] 09/09/2024 11:09:52 5 Past Data Reviewed completed Obey Pedraza MD [address] [place] [address],[address], [address], [facility] 09/09/2024 09:40:02 4 Colonoscopy completed Kurt Owens [facility] 09/09/2024 10:56:16 Imaging Results Imaging Date Name Status LastModified by Organiz ation Details LastModified Time 09/23/2024 CT, urogram completed [email or web address] [place] [address] [address] [place], [address], 10/13/2024 08:55:07 Procedure Notes None recorded. Medical Equipment None Reported. Allergies Allergen ID Allergen Name Allergen Category Reaction Reaction Severity Criticality Documentation Date Start Date Code Code System Note Provider Name and Address Organization Details Recorded Time 198273 honey bee venom medicatio n Not available Not available Not available 09/01/2024 47394 7 RxNorm Not Available Not Available Not Available 929499 Product containin g penicilli n (product) medicatio n Not available Not available Not available 09/01/2024 59399 8001 SNOMED Not Available Not Available Not [...] Updated DateTime 09/09/2024 187.96 cm 23.1 kg/m2 76595.63 g Kurt Meath [facility] 09/09/2024 10:55:12 Date Recorded Body height Provider Name an d Address Organization Details Last Updated DateTime 09/29/2024 187.96 cm Chelsey [facility] 15:18:31 Date Recorded Body height Body mass index (BMI) Body weight Provider Name and Address Organization Details Last Updated DateTime 10/02/2024 187.96 cm 23.1 kg/m2 54432.63 g Eleni Thomas [facility] 10/02/2024 11:35:02 Date Recorded Body height Provider Name an d Address Organization Details Last Updated DateTime 10/15/2024 187.96 cm Kurt Owens [facility] 13:52:17 Social History Question Answer Notes LastModified by Organizat ion Details LastModified Time Tobacco Smoking Status Former Smoker Kurt Gasparjeri [facility] 09/09/2024 10:55:43 What Is Your Level Of [...] Influenza, adjuvanted, trivalent, PF 4 completed Kurt Gasparjeri rajan [facility] 09/09/2024 10:52:31 zoster recombinant 3 completed Kurt Gasparjeri rajan [facility] 09/09/2024 10:52:31 zoster recombinant 3 completed Kurt Meath null, [facility] 09/09/2024 10:52:31 Influenza, high-dose, quadrivalent, PF 1 completed Kurt Meath null, [facility] 09/09/2024 10:52:31 Influenza, high-dose, quadrivalent, PF 0 completed Kurt Meath null, [facility] 09/09/2024 10:52:31 Influenza, adjuvanted, quadrivalent, PF 3 completed Kurt Meath null, [facility] 09/09/2024 10:52:31 Influenza, adjuvanted, quadrivalent, PF 2 completed Kurt Meat null, [facility] 09/09/2024 10:52:31 COVID-19, mRNA, LNP-S, PF, 30 mcg/0.3 mL dose 1 completed Ukrt Meat null, [facility] 09/09/2024 10:52:31 COVID-19, mRNA, LNP-S, PF, 30 mcg/0.3 mL dose 1 completed Kurt Meath null, [facility] 09/09/2024 10:52:31 COVID-19, mRNA, LNP-S, PF, 30 mcg/0.3 mL dose 1 completed Kurt Meat null, [facility] 09/09/2024 10:52:31 COVID-19, mRNA, LNP-S, bivalent, PF, 30 mcg/0.3 mL dose 2 completed Kurt Meath null, [facility] 09/09/2024 10:52:31 RSV, recombinant, protein subunit RSVpreF, adjuvant reconstituted, 0.5 mL, PF 4 completed Kurt Meat null, [facility] 09/09/2024 10:52:31 COVID-19, mRNA, LNP-S, PF, 50 mcg/0.5 mL 4 completed Kurt Meat null, [facility] 09/09/2024 10:52:31 COVID-19, mRNA, LNP-S, PF, 50 mcg/0.5 mL 3 completed Kurt Meath null, [facility] 09/09/2024 10:52:31 pneumococcal polysaccharide PPV23 8 completed Kurt Meath null, [facility] 09/09/2024 10:52:31 Tdap 6 completed Kurt Meath null, [facility] 09/09/2024 10:52:31 Pneumococcal conjugate PCV 13 7 completed Kurt Meath null, [facility] 09/09/2024 10:52:31 zoster live 7 completed Kurt Meath null, [facility] 09/09/2024 10:52:31 Influenza, high-dose, trivalent, PF 8 completed Kurt Meath null, [facility] 09/09/2024 10:52:31 Influenza, high-dose, trivalent, PF 7 completed Kurt Meath null, [facility] 09/09/2024 10:52:31 Influenza, high-dose, trivalent, PF 9 completed Kurt Meath null, [facility] 09/09/2024 10:52:31 Td (adult), 2 Lf tetanus toxoid, preservative free, adsorbed 5 completed Kurt Meath null, [facility] 09/09/2024 10:52:31 Hep A, adult 3 completed Kurt Meath null, [facility] 09/09/2024 10:52:31 typhoid, ViCPs 3 completed Kurt Meath null, [facility] 09/09/2024 10:52:31 influenza, seasonal, intradermal, preservative free 2 completed Kurt Meath null, [facility] 09/09/2024 10:52:31 influenza, seasonal, intradermal, preservative free 1 completed Kurt Meath null, [facility] 09/09/2024 10:52:31 Influenza, split virus, quadrivalent, PF 6 completed Kurt Meath null, [facility] 09/09/2024 10:52:31 Influenza, split virus, quadrivalent, PF 4 completed Kurt Owens [facility] 09/09/2024 10:52:31 Past Encounters Encounter ID Performer Location Encounter Start Date Encounter Closed Date Diagnosis/Indication Diagnosis SNOMED-CT Code Diagnosis ICD10 Code Diagnosis Note [id number] MD Dinesh Fish_Woo [address] [address] 09/09/2024 10:45:26 09/09/2024 11:49:30 Lower urinary tract symptoms due to benign prostatic hypertrophy 3816996070 9101 N40.1 Retention of urine 57882 4002 R33.9 Renato hematuria 64496668 5 R31.0 [id number] MD Geovanni Manriquez[address] [address] 09/29/2024 12:37:22 10/12/2024 09:16:29 Lower urinary tract symptoms due to benign prostatic hypertrophy 9338092572 9101 N40.1 Retention of urine 40818 4002 R33.9 [id number] [facility] [address] [address] 10/02/2024 11:30:07 10/07/2024 04:01:24 Urinary tract infectious disease 85055109 N39.0 Per UTI/materials engineer protocol. UA/UC today. [id number] MD Dinesh FishChristopher melendez [address] [place] [address] 10/15/2024 13:50:10 10/19/2024 09:45:18 Retention of urine 803786679 R33.9 Lower urin winsome tract symptoms due to benign prostatic hypertrophy 3107725251 9101 N40.1 Renato hematuria 85286069 5 R31.0 Health Concerns Section Related Observation LastModified by Organization Detai ls LastModified Time None Recorded Concern Status LastModified by Organization Details LastModified Time None Recorded Advance Directives Directive None Recorded Payers Encounter Date Sequence Insurance Name Policy Number Policy Bustamante Covered Member ID Bustamante Member ID Guarantor Name 09/09/2024 1 [place] [id number] [facility] Suresh H Broske [id number] Suresh H Broske 09/09/2024 2 [facility] [id number] Suresh H Broske [id number] Suresh H Broske 09/29/2024 1 MEDIC[facility] Suresh H Broske [id number] Suresh H Broske 09/29/2024 2 [facility] [id number] Suresh H Broske [id number] Suresh H Broske 10/02/2024 1 [facility]IC[facility] Suresh H Broske [id number] Suresh H Broske 10/02/2024 2 [facility] [id number] Suresh H Broske [id number] Suresh H Broske 10/15/2024 1 [place] [facility] Suresh H Broske [id number] Suresh H Broske 10/15/2024 2 [facility] [id number] Suresh H Broske [id number] Surehs H Broske Notes Date Note Type Note [...] developed gross hematuria and was admitted at [facility] for continuous bladder irrigation.He still has his Fragoso indwelling. Obey Pedraza MD [address] [place] [address],[facility] [address], [place], [address], [facility] 09/09/2024 11:13:03 10/15/2024 text/html This is a 74 yea [...] developed gross hematuria and was admitted at [facility] for continuous bladder irrigation.He has failed attempted [...] evidence of outlet obstruction.He was admitted at [facility] from 10/06/2024 - 10/10/2024 with gross hematuria and clot urinary retention.He required cystoscopy, clot evacuation, and fulguration of bleeding 10/08/2024.He is here today to discuss next steps in management. Obey Pedraza MD [address] [facility],[address], [place], [address], [facility] 10/15/2024 14:28:58
--- OUTSIDE RECORDS SUMMARY | 2024-10-25 01:54 | XMS_ITS | Continuity of Care Document ---
Author Organization [facility] Address [address] [place] [address] Care Team Providers Care Systems Spec Name Role Phone SHEA DURON Primary Care Provider Assessment No assessment recorded. Plan of Treatment [...] Modified By Organization Details Last Modified Time 09/29/2024 [id number] Impression: 1) Smaller capacity, normal compliant bladder with repeated detrusor instability and incontinence 2) No volitional voiding on pressure/flow. MInimal void on non-invasive testing, with elevated residual. 3) The most probable diagnosis is bladder outlet obstruction, as he does not have myogenic failure. [email or web address] Not available 10/11/2024 11:34:10 Reason for Referral None Reported. Results Created Date Observation Date Name Description Value Unit Range Abnormal Flag Note LastModifiedBy Organization Detail LastModifiedTime 09/23/1909/23/2024 CT, urogr am No observ ation record ed. [email or web address] [facility] [address], [place], [address], 10/13/2024 08:55:07 Result Notes None recorded. Problems Name Problem SNOMED Code Status Onset Date Resolution Date Notes Provider Name and Address Organization Details Recorded Time Retention of urine 426644666 Active 2024 [facility], [facility] 5 12:52:01 Type 2 diabetes mellitus 01614365 Active 2024 [facility], [facility] 5 12:52:35 Hypertensiv e disorder 98370139 Active 2024 [facility] null, [facility] 5 12:52:38 Lower urinary tract symptoms due to benign prostatic hypertrophy 6845061353340 1 Active 2024 [facility], [facility] 5 10:56:02 Problem Notes None recorded. Procedures Surgical History Date Name Laterality Status Provider Name and Address Organization Details Recorded Time 5 COMPLEX VISIT completed Obey Pedraza MD [address] [place] [address],[address] [place] [address], [phone], [facility] 10/15/2024 14:26:19 5 Blood Draw/SLOT KEY PERSON/PSA RESULTS cancelled Elo Bishop [facility] 10/05/2024 11:50:19 5 Urodynamic Studies completed Dwaine Kong MD [address] [place] [address],[address], [address], [facility] 10/11/2024 11:34:02 5 Fragoso Catheter Insertion completed Chelsey Munguia [facility] 09/29/2024 15:46:01 5 Cystoscopy- male completed Obey Pedraza MD [address] [place] [address],[address], [address], [facility] 09/09/2024 11:09:52 5 Past Data Reviewed completed Obey Pedraza MD [address] [place] [address],[facility] [address], [address], [facility] 09/09/2024 09:40:02 4 Colonoscopy completed Kurt Owens [facility] 09/09/2024 10:56:16 Imaging Results None recorded. Procedure Notes None recorded. Medical Equipment None Reported. Allergies Allergen ID Allergen Name Allergen Category Reaction Reaction Severity Criticality Documentation Date Start Date Code Code System Note Provider Name and Address Organization Details Recorded Time 105972 honey bee venom medicatio n Not available Not available Not available 09/01/2024 57261 7 RxNorm Not Available Not Available Not Available 353753 Product containin g penicilli n (product) medicatio n Not available Not available Not available 09/01/2024 87356 8001 SNOMED Not Available Not Available Not [...] Details Last Updated DateTime 09/29/2024 187.96 cm Chelseylalo Munguia [facility] 15:18:31 Date Recorded Body height Body mass index (BMI) Body weight Provider Name and Address Organization Details Last Updated DateTime 10/02/2024 187.96 cm 23.1 kg/m2 00439.63 g Eleni Thomas [facility] 10/02/2024 11:35:02 Social History Question Answer Notes LastModified by Organizat ion Details LastModified Time Tobacco Smoking Status Former [facility]oker [facility] 10:55:43 What Is Your Level Of [...] trivalent, PF 4 completed Kurt Meath null, [facility] 09/09/2024 10:52:31 zoster recombinant 3 completed Kurt Meath null, [facility] 09/09/2024 10:52:31 zoster recombinant 3 completed Kurt Meath null, [facility] 09/09/2024 10:52:31 Influenza, high-dose, quadrivalent, PF 1 completed Kurtpapo Gasparh satinder, [facility] 09/09/2024 10:52:31 Influenza, high-dose, quadrivalent, PF 0 completed Kurt Meath null, [facility] 09/09/2024 10:52:31 Influenza, adjuvanted, quadrivalent, PF 3 completed Kurt Meath null, [facility] 09/09/2024 10:52:31 Influenza, adjuvanted, quadrivalent, PF 2 completed Kurt Meath null, [facility] 09/09/2024 10:52:31 COVID-19, mRNA, LNP-S, PF, 30 mcg/0.3 mL dose 1 completed Kurt Meath null, [facility] 09/09/2024 10:52:31 COVID-19, mRNA, LNP-S, PF, 30 mcg/0.3 mL dose 1 completed Kurt Meath null, [facility] 09/09/2024 10:52:31 COVID-19, mRNA, LNP-S, PF, 30 mcg/0.3 mL dose 1 completed Kurt Meath null, [facility] 09/09/2024 10:52:31 COVID-19, mRNA, LNP-S, bivalent, PF, 30 mcg/0.3 mL dose 2 completed Kurt Meat null, [facility] 09/09/2024 10:52:31 RSV, recombinant, protein subunit RSVpreF, adjuvant reconstituted, 0.5 mL, PF 4 completed Kurt Meath null, [facility] 09/09/2024 10:52:31 COVID-19, mRNA, LNP-S, PF, 50 mcg/0.5 mL 4 completed Kurt Meath null, [facility] 09/09/2024 10:52:31 COVID-19, mRNA, LNP-S, PF, 50 mcg/0.5 mL 3 completed Kurt Meat null, [facility] 09/09/2024 10:52:31 pneumococcal polysaccharide PPV23 8 completed Kurt Meat null, [facility] 09/09/2024 10:52:31 Tdap 6 completed Kurt Meath null, [facility] 09/09/2024 10:52:31 Pneumococcal conjugate PCV 13 7 completed Kurt Meath null, [facility] 09/09/2024 10:52:31 zoster live 7 completed Kurt Meath null, [facility] 09/09/2024 10:52:31 Influenza, high-dose, trivalent, PF 8 completed Kurt Meath null, [facility] 09/09/2024 10:52:31 Influenza, high-dose, trivalent, PF 7 completed Kurt Meath null, [facility] 09/09/2024 10:52:31 Influenza, high-dose, trivalent, PF 9 completed Kurt Meath null, [facility] 09/09/2024 10:52:31 Td (adult), 2 Lf tetanus toxoid, preservative free, adsorbed 5 completed Kurt Meath null, [facility] 09/09/2024 10:52:31 Hep A, adult 3 completed Kurt Meath null, [facility] 09/09/2024 10:52:31 typhoid, ViCPs 3 completed Kurt Meath null, [facility] 09/09/2024 10:52:31 influenza, seasonal, intradermal, preservative free 2 completed Kurt Meath null, [facility] 09/09/2024 10:52:31 influenza, seasonal, intradermal, preservative free 1 completed Kurt Meath null, [facility] 09/09/2024 10:52:31 Influenza, split virus, quadrivalent, PF 6 completed Kurt Meath null, [facility] 09/09/2024 10:52:31 Influenza, split virus, quadrivalent, PF 4 completed Kurt Meath null, [facility] 09/09/2024 10:52:31 Past Encounters Encounter ID Performer Location Encounter Start Date Encounter Closed Date Diagnosis/Indication Diagnosis SNOMED-CT Code Diagnosis ICD10 Code Diagnosis Note [id number] MD Wanda [facility] [place] [address] [facility],[address] [address] 09/09/2024 10:45:26 09/09/2024 11:49:30 Lower urinary tract symptoms due to benign prostatic hypertrophy 6023192210 9101 N40.1 Retention of urine 54234 4002 R33.9 Renato hematuria 77342233 5 R31.0 [id number] MD Dinesh Manriquez[facility] [address] [facility] e [address] [place] [phone] 09/29/2024 12:37:22 10/12/2024 09:16:29 Lower urinary tract symptoms due to benign prostatic hypertrophy 2073465750 9101 N40.1 Retention of urine 76601 4002 R33.9 Health Concerns Section Related Observation LastModified by Organization Detai ls LastModified Time None Recorded Concern Status LastModified by Organization Details LastModified Time None Recorded Payers Encounter Date Sequence Insurance Name Policy Number Policy Bustamante Covered Member ID Bustamante Member ID Guarantor Name 09/29/2024 1 [place] [employer] Suresh Martinez [id number] Suresh Martinez 09/29/2024 2 [facility] [id number] Suresh Martinez [id number] Suresh Martinez
--- OUTSIDE RECORDS SUMMARY | 2024-10-25 01:54 | XMS_ITS | Continuity of Care Document ---
Author Organization [facility] , [facility] Address [address] [place] [address] [address] [place] [address] Care Team Providers Care Outsole Caser Name Role Phone ALEKSANDRASHEA Marcial Primary Care Provider Assessment No assessment recorded. [...] dipstick - Per UTI protocol 2024 025 [facility], [address], [address], [place], [address], 10/02/2024 11:59:38 urinalysi s, microscop ic [address] [facility], [address], [address], [place], [address], 10/02/2024 11:46:20 culture, urine 2024 025 [facility], [address], [address], [place], [address], 10/04/2024 12:02:22 Referral None recorded. Procedures None recorded. Surgeries None recorded. Imaging None recorded. Medication Orders None recorded. Patient TargetsNo targets recorded. Patient InstructionsNo instructions recorded. Reason for Referral None Reported. Results Created Date Observation Date Name Description Value Unit Range Abnormal Flag Note LastModifiedBy Organization Detail LastModifiedTime 09/23/1909/23/2024 CT, urogr am No observ ation record ed. [email or web address] [facility] [address], [place], [address], 10/13/2024 08:55:07 Result Notes None recorded. Problems Name Problem SNOMED Code Status Onset Date Resolution Date Notes Provider Name and Address Organization Details Recorded Time Retention of urine 173093918 Active 2024 [facility] 5 12:52:01 Type 2 diabetes mellitus 16611789 Active 2024 [facility], [facility] 5 12:52:35 Hypertensiv e disorder 20114650 Active 2024 [facility] 5 12:52:38 Lower urinary tract symptoms due to benign prostatic hypertrophy 9535741225155 1 Active 2024 [facility] 5 10:56:02 Problem Notes None recorded. 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 cancelled Elo Bishop [facility] 10/05/2024 11:50:19 5 Urodynamic Studies completed Dwaine Kong MD [address] [place] [address],[address], [address], [facility] 10/11/2024 11:34:02 5 Fragoso Catheter Insertion completed Chelsey Munguia [facility] 09/29/2024 15:46:01 5 Cystoscopy- male completed Obey Pedraza MD [address] [facility],[address], [place], [address], [facility] 09/09/2024 11:09:52 5 Past Data Reviewed completed Obey Pedraza MD [address] [facility],[address], [place], [address], [facility] 09/09/2024 09:40:02 4 Colonoscopy completed [facility] 09/09/2024 10:56:16 Imaging Results None recorded. Procedure Notes None recorded. Medical Equipment None Reported. Allergies Allergen ID Allergen Name Allergen Category Reaction Reaction Severity Criticality Documentation Date Start Date Code Code System Note Provider Name and Address Organization Details Recorded Time 270797 honey bee venom medicatio n Not available Not available Not available 09/01/2024 52492 7 RxNorm Not Available Not Available Not Available 722146 Product containin g penicilli n (product) medicatio n Not available Not available Not available 09/01/2024 57991 8001 SNOMED Not Available Not Available Not [...] Updated DateTime 10/02/2024 187.96 cm 23.1 kg/m2 17102.63 g Eleni Thomas [facility] 10/02/2024 11:35:02 Social History Question Answer Notes LastModified by Organizat ion Details LastModified Time Tobacco Smoking Status Former Smoker Kurt rajan [facility] 09/09/2024 10:55:43 What Is Your Level [...] adjuvanted, trivalent, PF 4 completed Kurt rajan [facility] 09/09/2024 10:52:31 zoster recombinant 3 completed Kurt rajan [facility] 09/09/2024 10:52:31 zoster recombinant 3 completed Kurt rajan [facility] 09/09/2024 10:52:31 Influenza, high-dose, quadrivalent, PF 1 completed Kurt Meath null, [facility] 09/09/2024 10:52:31 Influenza, high-dose, quadrivalent, PF 0 completed Kurt Meath null, [facility] 09/09/2024 10:52:31 Influenza, adjuvanted, quadrivalent, PF 3 completed Kurt Meath null, [facility] 09/09/2024 10:52:31 Influenza, adjuvanted, quadrivalent, PF 2 completed Kurt Meat null, [facility] 09/09/2024 10:52:31 COVID-19, mRNA, LNP-S, PF, 30 mcg/0.3 mL dose 1 completed Kurt Meat null, [facility] 09/09/2024 10:52:31 COVID-19, mRNA, LNP-S, PF, 30 mcg/0.3 mL dose 1 completed Kurt Meath null, [facility] 09/09/2024 10:52:31 COVID-19, mRNA, LNP-S, PF, 30 mcg/0.3 mL dose 1 completed Kurt Meat null, [facility] 09/09/2024 10:52:31 COVID-19, mRNA, LNP-S, bivalent, PF, 30 mcg/0.3 mL dose 2 completed Kurt Meath null, [facility] 09/09/2024 10:52:31 RSV, recombinant, protein subunit RSVpreF, adjuvant reconstituted, 0.5 mL, PF 4 completed Kurt Meat null, [facility] 09/09/2024 10:52:31 COVID-19, mRNA, LNP-S, PF, 50 mcg/0.5 mL 4 completed Kurt Meat null, [facility] 09/09/2024 10:52:31 COVID-19, mRNA, LNP-S, PF, 50 mcg/0.5 mL 3 completed Kurt Meath null, [facility] 09/09/2024 10:52:31 pneumococcal polysaccharide PPV23 8 completed Kurt Meath null, [facility] 09/09/2024 10:52:31 Tdap 6 completed Kurt Meath null, [facility] 09/09/2024 10:52:31 Pneumococcal conjugate PCV 13 7 completed Kurt Meath null, [facility] 09/09/2024 10:52:31 zoster live 7 completed Kurt Meath null, [facility] 09/09/2024 10:52:31 Influenza, high-dose, trivalent, PF 8 completed Kurt Meath null, [facility] 09/09/2024 10:52:31 Influenza, high-dose, trivalent, PF 7 completed Kurt Meath null, [facility] 09/09/2024 10:52:31 Influenza, high-dose, trivalent, PF 9 completed Kurt Meath null, [facility] 09/09/2024 10:52:31 Td (adult), 2 Lf tetanus toxoid, preservative free, adsorbed 5 completed Kurt Meath null, [facility] 09/09/2024 10:52:31 Hep A, adult 3 completed Kurt Meath null, [facility] 09/09/2024 10:52:31 typhoid, ViCPs 3 completed Kurt Meath null, [facility] 09/09/2024 10:52:31 influenza, seasonal, intradermal, preservative free 2 completed Kurt Meath null, [facility] 09/09/2024 10:52:31 influenza, seasonal, intradermal, preservative free 1 completed Kurt Meath null, [facility] 09/09/2024 10:52:31 Influenza, split virus, quadrivalent, PF 6 completed Kurt Meath null, [facility] 09/09/2024 10:52:31 Influenza, split virus, quadrivalent, PF [address] [facility] 09/09/2024 10:52:31 Past Encounters Encounter ID Performer Location Encounter Start Date Encounter Closed Date Diagnosis/Indication Diagnosis SNOMED-CT Code Diagnosis ICD10 Code Diagnosis Note [id number] [facility] [address] [place] [phone] 09/09/2024 10:45:26 09/09/2024 11:49:30 Lower urinary tract symptoms due to benign prostatic hypertrophy 6305890787 9101 N40.1 Retention of urine 03907 4002 R33.9 Renato hematuria 71746643 5 R31.0 [id number] Dwaine Kong [facility] [address] [place] [phone] 09/29/2024 12:37:22 10/12/2024 09:16:29 Lower urinary tract symptoms due to benign prostatic hypertrophy 6066466384 9101 N40.1 Retention of urine 44289 4002 R33.9 [id number] [facility]eni [facility] [address] [place] [phone] 10/02/2024 11:30:07 10/07/2024 04:01:24 Urinary tract infectious disease 76059253 N39.0 Per UTI/coloring checker protocol. UA/UC today. Health Concerns Section Related Observation LastModified by Organization Detai ls LastModified Time None Recorded Concern Status LastModified by Organization Details LastModified Time None Recorded Payers Encounter Date Sequence Insurance Name Policy Number Policy Bustamante Covered Member ID Bustamante Member ID Guarantor Name 10/02/2024 1 [place] [employer] Suresh Martinez [id number] Suresh Martinez 10/02/2024 2 [place] [id number] Suresh Martinez [id number] Suresh Martinez
--- NOTE | 2024-10-25 02:09 | CRLHL7_ITS ---
For Patients: As a result of the Century Cures Act, medical imaging exams and procedure reports are released immediately into your electronic medical record. You may view this report before your referring provider. If you have questions, please contact your health care provider. INDICATION: Testicular pain. TECHNIQUE: Ultrasound of the scrotum and contents. Sonographic padgett-scale images were obtained with color Doppler and spectral waveform analysis of the testicles. COMPARISON: None. FINDINGS: Right testis: 5.4 x 3.5 x 3.8 cm. Left testis: 4.8 x 2.8 x 3.4 cm. Both testicles are normal in size and echotexture. No masses. No suspicious calcifications. Normal arterial and venous color Doppler blood flow and spectral waveforms are present in both testicles. Hyperemia of the right testicle. Epididymis: Subcentimeter left epididymal head cyst. Enlarged heterogeneous right epididymis with hyperemia. Other: There is also hyperemia in the right spermatic cord region. Small right hydrocele, likely reactive. No sign of varicocele. Scrotal wall is normal. IMPRESSION: Findings suggestive of right epididymo-orchitis. Dictated by Cesar Davis MD @ 10/25/2024 3:58:14 AM (Electronically Signed)
--- NOTE | 2024-10-25 02:32 | ED.GENADULT ---
HPI - General Adult General Chief complaint: Urogenital Problems, Male Stated complaint: testicle swollen and painful Time Seen by Provider: 10/25/24 02:08 Source: patient Mode of arrival: ambulatory Limitations: no limitations History of Present Illness HPI narrative: 74-year-old male presents the emergency department with swelling and pain in his right scrotum for the past 3 days. Swelling seems worse today. No obvious trauma or injury. Does have a history of bladder hemorrhage and has a Fragoso catheter in place. Is undergoing is creeping procedure but denies a history of cancer. Unfortunately with the acuity and dizziness of the other patients in the ED, I do not have the time resources to look up his outside records on this as I do not think it is pertinent to the cause of his scrotal swelling. He has not tried any Tylenol or ibuprofen to help with his pain. Comes in in the wee hours. He reports that the pain is worse with standing and ambulating, he late around most of the day as a result. 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 Symptoms have gradually worsened. No nausea or vomiting, no difficulty with bowel movements no history of obstruction. No prior known history of hernia or prior surgery for hernia. Scrotum is tender to the touch, no difficulty with the catheter or tip of the penis. No abdominal pain. No prior similar symptoms. Past medical history most notable for AFib, recent bladder hemorrhage, hypertension. Home meds reviewed, list is accurate per patient. Anticoagulated on apixaban. ROS is notable for the genital symptoms as above only acutely. Otherwise denies acute changes times 12 systems. Related Data Home Medications ?Medication ?Instructions ?Recorded ?Confirmed mupirocin 2 % topical ointment 1 applic topical TID PRN 09/28/24 10/19/24 Previous Rx's ?Medication ?Instructions ?Recorded epinephrine 0.3 mg/0.3 mL 0.3 ml IM .As Needed as needed PRN 07/03/23 injection, auto-injector anaphylaxis #2 ea diltiazem HCl 60 mg 60 mg PO BID #60 caps 09/01/24 capsule,extended release 12 hr amlodipine 10 mg tablet 10 mg PO DAILY #90 tabs 09/28/24 atorvastatin 40 mg tablet 40 mg PO HS #90 tabs 02/17/25 glipizide 10 mg tablet, extended 10 mg PO DAILY #90 tabs 09/28/24 release 24 hr lisinopril 10 mg tablet 10 mg PO DAILY #90 tabs 09/28/24 metformin 500 mg tablet,extended 1,000 mg (2 x 500 mg) PO QDAY #180 09/28/24 release 24 hr tabs apixaban 5 mg tablet (Eliquis) 5 mg PO BID #60 tabs 10/19/24 levofloxacin 500 mg tablet 500 mg PO DAILY #10 tabs 10/25/24 Allergies Allergy/AdvReac Type Severity Reaction Status Date / Time bee venom protein (honey bee) Allergy Verified 10/19/24 12:45 Penicillins Allergy Verified 10/19/24 12:45 tamsulosin (From Flomax) AdvReac Intermediate orthostatic Verified 10/19/24 12:45 hypotension PFSH FOR[facility] Medical History Atrial fibrillation ?I48.91 - Unspecified atrial fibrillation (ICD-10) Hyponatremia ?E87.1 - Hypo-osmolality and hyponatremia (ICD-10) Chronic hyponatremia ?E87.1 - Hypo-osmolality and hyponatremia (ICD-10) Right lumbar radiculopathy ?M54.16 - Radiculopathy, lumbar region (ICD-10) Leukocytosis ?D72.829 - Elevated white blood cell count, unspecified (ICD-10) Lumbar radiculopathy ?M54.16 - Radiculopathy, lumbar region (ICD-10) Chronic low back pain ?M54.50 - Low back pain, unspecified (ICD-10) ?G89.29 - Other chronic pain (ICD-10) Cerebrovascular accident (CVA) (07/2020) ?I63.9 - Cerebral infarction, unspecified (ICD-10) Bladder cancer (2014) ?C67.9 - Malignant neoplasm of bladder, unspecified (ICD-10) Allergic to bees ?Z91.030 - Bee allergy status (ICD-10) Adenomatous polyp of colon ?D12.6 - Benign neoplasm of colon, unspecified (ICD-10) Gout ?M10.9 - Gout, unspecified (ICD-10) Hypertension ?I10 - Essential (primary) hypertension (ICD-10) Diabetes mellitus ?E11.9 - Type 2 diabetes mellitus without complications (ICD-10) Abnormal gait ?R26.9 - Unspecified abnormalities of gait and mobility (ICD-10) Surgical History History of amputation of toe ?Z89.429 - Acquired absence of other toe(s), unspecified side (ICD-10) History of colonoscopy ?Z98.890 - Other specified postprocedural states (ICD-10) History of tonsillectomy (1968) ?Z90.89 - Acquired absence of other organs (ICD-10) History of right-sided carotid endarterectomy ?Z98.890 - Other specified postprocedural states (ICD-10) Social History Narrative: SOCIAL HISTORY: He is single. Retired. One daughter living in [facility] that he does not see much. No longer working at [employer]. No longer working for the [employer]. 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 Code status is full. He does not want prolonged life support. His nephew, Adrien Araiza, of [place] is healthcare power of senior trial attorney HABITS: Sporadic walking for exercise. Sporadic smoking in the past. He denies smoking at this point. No alcohol or recreational drug use. FAMILY HISTORY: No changes. Parents both . He did not know them well. Father around 80 of unknown cause. Mother around 70 of unknown cancer. Three sisters all living with borderline diabetes otherwise healthy. What is your current living situation?: I presently have a place to live Problems where you live: no known problems Problems where you live details: N/A In the past 12 months, utilities in danger of being shut off: no In past 12 months, lack of transportation kept you from medical appts, meetings, work, or getting things needed for daily living: no In the past 12 mos, have been you worried that your food would run out before you had money to buy more?: never true In the past 12 mos, the food you bought just didn't last and you didn't have money to buy more?: never true Highest level of school completed/degree received: high school graduate Smoking Status: Former smoker What tobacco products do you use: cigarettes Smoking quit date/years: <= 15 years ago Do you use any of these nicotine containing products: None Second hand tobacco smoke exposure: No How often do you have a drink containing alcohol: never AUDIT-C Alcohol total score: 0 Non-prescribed substance use: marijuana (any form) How often does anyone, including family, friends and others, physically hurt you: never How often does anyone, including family, friends and others, insult or talk down to you: never How often does anyone, including family, friends and others, threaten you with harm: never How often does anyone, including family, friends and others, scream or curse at you: never service: Yes Exam Const: Vital Signs, click to edit/add: Vital Signs - 24 hr 10/25/24 01:53 Temperature 97.0 F L Pulse Rate [Left P ulse Oximeter] 78 Respiratory Rate 16 Blood Pressure [Ri ght Upper Arm] 142/66 H Pulse Oximetry 99 Oxygen Delivery Me thod Room Air Documenting provider has reviewed patient's vital signs: yes Common normals: no apparent distress General appearance: cooperative HENMT: Common normals: moist oral mucous membranes Head and scalp: normal to inspection Mouth: oral and palatal mucosa normal Neck & C-Spine: General: normal visual inspection Resp: Common normals: normal respiratory effort, no use of accessory muscles and clear to auscultation bilaterally Effort & inspection: able to speak in complete sentences Auscultation: clear to auscultation bilaterally Cardio: Common normals: S1 normal heart sound and S2 normal heart sound Heart sounds: S1 normal and S2 normal Other: Rhythm seems regular today despite history of AFib. GI: Common normals: Normal to inspection, nondistended, normoactive bowel sounds present, soft to palpation, non-tender and no hepatosplenomegaly Palpation: soft and no hepatosplenomegaly : Other: Scrotum visibly swollen, transilluminates on the right upper pole. Testicle force to the bottom of the right scrotum does not seem enlarged itself that is slightly tender to the touch. Much more tenderness in the scrotum around the area of swelling. I attempt to try to reduce this back into the inguinal region which is also has some mild swelling, patient does not tolerate this well. Left testicle seems normal. Tip of the penis and catheter seem normal as well. Extremity: Common normals: normal to inspection Psych: Common normals: thought process normal Appearance: grossly normal Thought process: normal thought process Insight: fair Judgement: fair Skin: Common normals: no rashes or lesions noted General skin exam: no rashes or lesions noted Course Course ED Course: Scrotal swelling for 3 days, worsening. Seems to be secondary to an inguinal hernia, possibly incarcerated bowel verses hydrocele versus varicocele versus testicular torsion, amongst others. Urgent ultrasound ordered, they will have to be called in from home. This will help me determine the health of the testicle itself but also give any clues as to whether there is bowel or just fluid in the scrotum. May also require CT. Peripheral IV will be placed, pleurisy 0.25 of IV Dilaudid for pain. I do not think he will tolerate the ultrasound without this. He will likely require some light sedation if we do have to attempt hernia reduction. Typical intra-abdominal labs ordered, await findings. Reevaluation(s) Time of Reevaluation #1: 04:31 Reevaluation #1: Counseled patient on findings. Labs are overall reassuring. Will culture urine. Ultrasound notable for epididymal orchitis. Will start levofloxacin for 10 days. Counseled patient on Tylenol for pain control, will also give limited supply of oxycodone for severe pain. Handout given discussing scrotal support and elevation to help with pain. Alarm symptoms like high fever, persistent vomiting, severe weakness reviewed as indications to come to ED. Patient will keep his follow-up appointment in 4 days with Urology as planned. Ultrasound images were sent to [facility] in case they need to review these. Patient will have to have someone drive him home due to receiving IV pain medication. He verbalizes understanding and agreement. Vital Signs Vital signs: Initial Vital Signs Temperature 97.0 F L 10/25/24 01:53 Temperature Source Temporal Artery Scan 10/25/24 01:53 Pulse Rate 78 10/25/24 01:53 Pulse Rhythm Regular 10/25/24 01:53 Respiratory Rate 16 10/25/24 01:53 Blood Pressure 142/66 H 10/25/24 01:53 Blood Pressure Mean 91 10/25/24 01:53 Blood Pressure Position Sitting 10/25/24 01:53 Pulse Oximetry 99 10/25/24 01:53 Oxygen Delivery Method Room Air 10/25/24 01:53 Vital Signs Temperature 97.0 F L 10/25/24 01:53 Pulse Rate 78 10/25/24 01:53 Respiratory Rate 16 10/25/24 01:53 Blood Pressure 142/66 H 10/25/24 01:53 Pulse Oximetry 99 10/25/24 01:53 Oxygen Delivery Method Room Air 10/25/24 01:53 Temperature 97.0 F L 10/25/24 01:53 Pulse Rate 78 10/25/24 01:53 Respiratory Rate 16 10/25/24 01:53 Blood Pressure 142/66 H 10/25/24 01:53 Pulse Oximetry 99 10/25/24 01:53 Oxygen Delivery Method Room Air 10/25/24 01:53 Medications Administered Medications: Generic Name Dose Route Start Last Admin Trade Name Freq PRN Reason Stop Dose Admin Ciprofloxacin 500 mg 10/25/24 04:17 10/25/24 04:29 Ciprofloxacin 500 Mg Tablet PO 10/25/24 04:18 500 mg ONCE ONE Administration Hydromorphone HCl 0.25 mg 10/25/24 02:37 10/25/24 02:45 Hydromorphone 0.5 Mg/0.5 Ml Inj IVP 10/25/24 02:38 0.25 mg ONCE ONE Administration Medical Decision Making Lab Data Lab results reviewed: Yes I reviewed the patient's lab results Labs: Lab Results 10/25/24 Range/Units 02:45 WBC 8.90 (4.50-11.00) K/uL RBC 3.01 L (4.30-5.90) m/uL Hgb 8.7 L (13.5-17.5) gm/dL Hct 26.9 L (37.0-53.0) % MCV 89 (80-100) fL MCH 29 (26-34) pg MCHC 32 (32-36) gm/dL RDW Coeff of Rodriguez 12.8 (11.5-15.5) % Plt Count 302 (140-440) K/uL Neut % (Auto) 75.0 H (42.0-72.0) % Lymph % (Auto) 13.5 L (20-44) % Emmons % (Auto) 10.1 (0.0-11.0) % Eos % (Auto) 0.8 (0.0-7.0) % Baso % (Auto) 0.2 (0.0-3.0) % Neut # (Auto) 6.70 (1.7-7.0) K/uL Lymph # (Auto) 1.20 (0.90-2.90) K/uL Emmons # (Auto) 0.90 (0.00-0.90) K/UL Eos # (Auto) 0.07 (0.00-0.50) K/uL Baso # (Auto) 0.02 (0.00-0.30) K/uL Abs Immat Gran (auto) 0.04 (0.00-0.30) K/uL Imm/Tot Granulo (auto) 0.4 % Sodium 134 L (135-149) mmol/L Potassium 4.3 (3.6-5.1) mmol/L Chloride 100 (96-114) mmol/L Carbon Dioxide 29 (20-32) mmol/L Anion Gap 5 L (7-15) mEq/L BUN 10 (7-30) mg/dL Creatinine 0.7 (0.5-1.5) mg/dL Estimated Creat Clear 77.11 Estimated GFR 98 ml/min Glucose 102 (60-115) mg/dL Lactate 0.7 (0.5-1.9) mmol/L Calcium 8.7 (8.4-10.6) mg/dL Total Bilirubin 0.8 (0.1-1.5) mg/dL AST 35 (12-35) U/L ALT 31 (4-50) U/L Alkaline Phosphatase 80 (40-150) U/L C-Reactive Protein 8.4 H (0.5-1.0) mg/dL Total Protein 6.3 (6.0-8.3) g/dL Albumin 3.4 (3.3-5.0) g/dL Discharge Plan Discharge Clinical Impression: Acute epididymo-orchitis Patient Disposition: Home w/ Parent or Adult Condition: Improved Instructions: Epididymo-Orchitis (ED) Additional Instructions: As we discussed, there was thankfully no sign of a hernia today. The ultrasound clearly shows swelling and inflammation of the epididymis, a gland on the top part of the testicle with a little bit of inflammation of the testicle as well. This is a condition called epididymo-orchitis. This can happen from micro trauma or mild injury in athletes or sometimes it can be associated with recent surgical procedures. I certainly do think that that is the case for you. We do recommend strong antibiotics for those that have had recent bladder procedures and developed this condition. Your given a dose of antibiotics here in the emergency department but you will need to continue on antibiotics every evening as well. This has been sent to your pharmacy. You will take level floxacillin 500 mg once daily. Please keep your follow-up appointment on with the urologist. Please bring this paperwork so that they can see what treatment was done and I will also have our radiology department send the images up to [facility] so that they may review them if needed. If you have high fever, severe weakness or significant amounts of bleeding, you should return to emergency department right away. Most have improvement of pain a couple of days after starting antibiotics. In the interim, I recommend Tylenol 1000 mg every 6 hours as needed for pain. I will also give you a small supply of oxycodone to use if the pain is more severe. Try to reserve this for nighttime only but you may use it during the day if the pain is very severe. Because your given a dose of IV pain medication in the ED, no driving until after 7:00 a.m.. Activity Level: Activity as Tolerated Discharge Diet: Regular Prescriptions: New levofloxacin 500 mg tablet 500 mg PO DAILY Qty: 10 0RF No Action mupirocin 2 % ointment 1 applic topical TID PRN amlodipine 10 mg tablet 10 mg PO DAILY Qty: 90 3RF atorvastatin 40 mg tablet 40 mg PO HS Qty: 90 3RF glipizide 10 mg tablet extended release 24hr 10 mg PO DAILY Qty: 90 3RF lisinopril 10 mg tablet 10 mg PO DAILY Qty: 90 3RF metformin 500 mg tablet extended release 24 hr 1,000 mg PO QDAY Qty: 180 3RF epinephrine 0.3 mg/0.3 mL auto-injector 0.3 ml IM .As Needed as needed PRN (Reason: anaphylaxis) Qty: 2 0RF Eliquis 5 mg tablet 5 mg PO BID Qty: 60 11RF diltiazem HCl 60 mg capsule,extended release 12 hr 60 mg PO BID Qty: 60 2RF Follow Up/Referrals: Santi Juarez MD [Primary Care Provider] - Stand Alone Forms: [employer] Info Instructions
--- OUTSIDE RECORDS SUMMARY | 2024-10-25 02:41 | XMS_ITS | Clinical Summary ---
Author Organization [employer] [facility] Address [address] [place] [id number] Care Team Providers Care Hydraulic Press Servicer Name Role Phone Santi Juarez MD Primary Care Provider [phone] Allergies Active Allergy Reactions Criticality Noted Date [...] 2 days. 6 Capsule 10/11/19 11:25 AM MEN'S LEATHER DRESS BELT MAKER 025 2024 Active Problems Problem Noted Date [...] Department Care Team Description 10/08/2024 3:37 PM MEN[employer]S LEATH[employer]ESS BELT MAKER Anesthesia Event [address] [address] Cecilia Patel MD Wagner, Stephen Robert, MD 10/08/2024 3:25 PM MEN[employer]S LE[employer]ESS BELT MAKER - 10/08/2024 5:03 PM M[employer]S LEATHER DRESS BELT MAKER Surgery [address] [address] Marcia Epstein MD CYSTOSCOPY, CLOT EVACUATION, FULGURATION 10/06/2024 2:08 PM M[employer]S [employer]ATHER [employer]ESS BELT MAKER - 10/10/2024 12:06 PM M[employer]S LE[employer]ER [employer]ESS BELT MAKER Hospital Encounter [address] [address] s, U Hospitalist Abhi Álvarez MD Atrial fibrillation, unspecified type (HC) (Primary Dx); Benign prostatic hyperplasia with lower urinary tract symptoms, symptom details unspecified Discharge Disposition: Home Self Care 10/06/2024 Travel 09/24/2024 Transcribe Orders [facility] [address] [place] [address] Doug Dia MD 09/23/2024 Transcribe Orders [facility] [place] [phone] Shaun Baer MD 08/28/2024 3:00 PM M[employer]S LEATHER DRESS BELT MAKER Ancillary Procedure Gantt Heart Surprise at [facility] [address] [place] [address] 08/27/2024 Telephone [facility] [address] [place] [address] Harvey Gonzalez MD from Last 3 Months [...] on file Legal Sex Male 7:26 PM M[employer] LE[employer]ESS BELT MAKER Gender Identity Not on file Sexual Orientation Not on file Obstetrics History Last Filed Vital Signs Vital Sign Reading Time Taken Comments Blood Pressure 144/66 10/10/2024 7:21 AM MEN'S LEATHER DRESS BELT MAKER Pulse 58 10/10/2024 7:21 AM MEN'S LEATHER DRESS BELT MAKER Temperature 36.4 C (97.5 F) 10/10/2024 7:21 AM MEN'S LEATHER DRESS BELT MAKER Respiratory Rate 17 10/10/2024 7:21 AM MEN'S LEATHER DRESS BELT MAKER Oxygen Saturation 96% 10/10/2024 7:21 AM MEN'S LEATHER DRESS BELT MAKER Inhaled Oxygen Concentration - - Weight 73.9 kg (163 lb) 10/09/2024 5:08 AM MEN'S LEATHER DRESS BELT MAKER Height 188 cm (6' 2) 10/09/2024 5:08 AM M[employer]S LEATHER [employer]ESS BELT MAKER Body Mass Index 20.93 10/09/2024 5:08 AM MEN'S LEATHER DRESS BELT MAKER Plan of Treatment Health Maintenance Due Date [...] Completed 12/09/2020 Medical Devices Implanted Type Area Vamp Strap Ironer Device Identifier Shelf Expiration Date Model / Serial / Lot Tissue Pericardium 0.8x8cm Xenosure - [id number] Implanted:Qty: 1 on 01/03/2021 by Wraren Peña MD at [facility] Right: Carotid Artery [employer] 08/08/2026 0.8P8 / / [id number] Procedures Procedure Name Priority Date/Time Associated Diagnosis Comments HEMOGLOBIN Early AM 10/10/2024 7:27 AM M[employer]ESS BELT MAKER GLUCOSE METER Timed 10/10/2024 7:23 AM M[employer]S LE[employer]ESS [employer]T MAKER GLUCOSE METER Timed 10/09/2024 9:12 PM [employer] LE[employer] BELT MAKER GLUCOSE METER Timed 10/09/2024 4:48 PM M[employer] LE[employer]ER [employer] BELT MAKER GLUCOSE METER Timed 10/09/2024 11:35 AM M[employer]S LE[employer]ER DRESS BELT MAKER GLUCOSE METER Timed 10/09/2024 6:42 AM [employer] LE[employer]ER [employer]T MAKER HEMOGLOBIN Timed 10/09/2024 6:38 AM M[employer]S LEATHER DRESS BELT MAKER GLUCOSE METER Timed 10/08/2024 9:08 PM M[employer]S LEATHER DRESS BELT MAKER HEMOGLOBIN Timed 10/08/2024 6:56 PM MEN'S LEATHER DRESS BELT MAKER GLUCOSE METER Timed 10/08/2024 6:40 PM MEN[employer]S LEATHER DRESS BELT MAKER EKG 12 LEAD STAT 10/08/2024 6:34 PM MEN'S LEATHER DRESS BELT MAKER GLUCOSE METER Timed 10/08/2024 5:51 PM MEN'S LEATHER DRESS BELT MAKER GLUCOSE METER Timed 10/08/2024 4:43 PM MEN'S LEATHER DRESS BELT MAKER SUPRAGLOTTIC-LMA Routine 10/08/2024 4:09 PM MEN'S LEATHER DRESS BELT MAKER CYSTOSCOPY EVACUATION BLADDER CLOTS 10/08/2024 3:27 PM M[employer] LE[employer]ER [employer]ESS [employer]T MAKER Gross hematuria GLUCOSE METER Timed 10/08/2024 3:20 PM MEN'S LEATHER DRESS BELT MAKER GLUCOSE METER Timed 10/08/2024 11:50 AM MEN'S LEATHER DRESS BELT MAKER SCAN CORRESP-LABORATORY RESULTS 10/08/2024 10:55 AM MEN'S LEATHER DRESS BELT MAKER GLUCOSE METER Timed 10/08/2024 6:37 AM MEN[employer]S LEATHER DRESS BELT MAKER HEMOGLOBIN Early AM 10/08/2024 6:04 AM MEN'S LEATHER DRESS BELT MAKER GLUCOSE METER Timed 10/07/2024 11:53 PM MEN'S LEATHER DRESS BELT MAKER GLUCOSE METER Timed 10/07/2024 9:08 PM MEN'S LEATHER DRESS BELT MAKER GLUCOSE METER Timed 10/07/2024 5:14 PM MEN'S LEATHER DRESS BELT MAKER US RENAL AND BLADDER COMPLETE TYLER 10/07/2024 12:04 PM MEN'S LEATHER DRESS BELT MAKER GLUCOSE METER Timed 10/07/2024 11:34 AM MEN'S LEATHER DRESS BELT MAKER GLUCOSE METER Timed 10/07/2024 8:07 AM MEN'S LEATHER DRESS BELT MAKER HEMOGLOBIN Timed 10/07/2024 6:45 AM MEN'S LEATHER DRESS BELT MAKER HEMOGLOBIN Timed 10/06/2024 11:29 PM MEN'S LEATHER DRESS BELT MAKER GLUCOSE METER Timed 10/06/2024 9:13 PM MEN'S LEATHER DRESS BELT MAKER GLUCOSE METER Timed 10/06/2024 5:11 PM MEN'S LEATHER DRESS BELT MAKER TYPE & SCREEN Today 10/06/2024 4:12 PM MEN'S LEATHER DRESS BELT MAKER BASIC METABOLIC PANEL Today 10/06/2024 4:12 PM MEN'S LEATHER DRESS BELT MAKER PLATELET COUNT Today 10/06/2024 4:12 PM MEN'S LEATHER DRESS BELT MAKER HEMOGLOBIN Timed 10/06/2024 4:12 PM MEN'S LEATHER DRESS BELT MAKER HEMOGLOBIN A1C MONITORING (POCT) Today 10/06/2024 4:12 PM MEN'S LEATHER DRESS BELT MAKER SCAN-CARDIAC STRIP 10/06/2024 12 :00 AM MEN'S LEATHER DRESS BELT MAKER ECHO TTE COMPLETE WO CONTRAST Routine 08/28/2024 1:07 PM MEN[employer]S LE[employer]ER [employer]ESS [employer]T MAKER New onset a-fib (HC) COLONOSCOPY 04/03/2023 9:22 AM CDT US ABD AORTA SCREENING Routine 12/09/2020 9:28 AM CDT HTN (hypertension) from Last 3 Months or Most Recently Relevant to Health Maintenance Results * (ABNORMAL) HEMOGLOBIN (10/10/2024 7:27 AM MEN'S LEATHER DRESS BELT MAKER) Only the most recent of7 resultswithin the time period is included. HEMOGLOBIN 8.3(L) 13.5 - 17.5 g/dL 10/10/2024 7:41 AM MEN'S LEATHER DRESS BELT MAKER [facility] MCV 84 80 - 100 fL 10/10/2024 7:41 AM MEN'S LEATHER DRESS BELT MAKER [facility] Blood BLOOD SPECIMEN / Unknown Venipuncture / Unknown 10/10/2024 7:27 AM M[employer]'S LEATHER [employer]ESS BELT MAKER 10/10/2024 7:36 AM MEN'S LEATHER DRESS BELT MAKER Abhi Vogel MD HEMATOLOGY Final Re sult Performing Organization Address [facility]/ZIP Co de Phone Number [facility] SENDOUT INTERNAL ZIP [phone] [place] [phone] * (ABNORMAL) GLUCOSE METER (10/10/2024 7:23 AM MEN'S LEATHER DRESS BELT MAKER) Only the most recent of19 resultswithin the time period is included. [facility] GLUCOSE METER 166(H) 65 - 100 mg/dL 10/10/2024 7:27 AM [facility] Blood BLOOD SPECIMEN / Unknown 10/10/2024 7:23 AM MEN'S LEATHER DRESS BELT MAKER 10/10/2024 7:27 AM MEN'S LEATHER DRESS BELT MAKER Abhi Vogel MD CHEMISTRY Final Re sult [facility] SENDOUT INTERNAL ZIP [phone] [place] [address] * 12 Lead EKG - PRN (10/08/2024 6:34 PM MEN'S LEATHER DRESS BELT MAKER) Pathologist [facility] [place] Interpretation Normal sinus rhythm Anterior infarct , [...] NOW QTc 410 ms BEYOND NOW P [place] 100 degrees BEYOND NOW R [place] -4 degrees BEYOND NOW T [place] -7 degrees BEYOND NOW 10/08/2024 6:34 PM MEN'S LEATHER [employer]ESS BELT MAKER 10/09/2024 8:13 AM MEN'S LEATHER DRESS BELT MAKER us Abhi Vogel MD EKG ORD Final Re sult [facility] NOW [place], [place] * [facility]G MASK PR5 (10/08/2024 4:09 PM MEN'S LEATHER DRESS BELT MAKER) Narrative Luís Khalil CRNA - 10/08/2024 4:09 PM MEN[employer] LE[employer]ER [employer]ESS [employer]T MAKER Luís Khalil CRNA 10/08/2024 4:09 PM Procedure: [...] * SCAN CORRESP-LABORATORY RESULTS (10/08/2024 10:55 AM MEN'S LEATHER DRESS BELT MAKER) Narrative 10/08/2024 10:55 AM MEN'S LEATHER DRESS BELT MAKER Ordered by an unspecified provider. us Other Clinical Staff OTHER Final Resul t * US RENAL AND BLADDER COMPLETE (10/07/2024 12:04 PM MEN'S LEATHER DRESS BELT MAKER) Anatomical Region Laterality Modality Abdomen, AORTA, KIDNEYS Ultrasou nd 10/07/2024 12:0 4 PM MEN'S LEATHER DRESS BELT MAKER Impressions 10/07/2024 12:12 PM MEN'S LEATHER DRESS BELT MAKER 1. Normal kidney ultrasound. 2. Decompressed urinary bladder with Fragoso catheter in place. Narrative 10/07/2024 12:12 PM MEN'S LEATHER DRESS BELT MAKER For Patients: As a result of the [...] EXAM: US RENAL AND BLADDER COMPLETE LOCATION: [facility] DATE: 10/07/2024 INDICATION: Hematuria COMPARISON: [...] * TYPE & SCREEN (10/06/2024 4:12 PM MEN'S LEATHER DRESS BELT MAKER) ABORH AB Rh Positive 10/06/2024 5:21 PM MEN'S LEATHER DRESS BELT MAKER [facility] BLOOD BANK ANTIBODY SCREEN Negative Negative 10/06/2024 5:21 PM MEN'S LEATHER DRESS BELT MAKER [facility] BLOOD BANK SPECIMEN EXPIRATION DATE/TIME 10/09/24 23:59 10/06/2024 5:21 PM MEN'S LEATHER DRESS BELT MAKER [facility] BLOOD BANK Blood BLOOD SPECIMEN / Unknown Venipuncture / Unknown 10/06/2024 4:12 PM MEN'S LE[employer]ER [employer]ESS BELT MAKER 10/06/2024 4:27 PM MEN'S LEATHER DRESS BELT MAKER Abhi Vogel MD BLOOD BANK Final Re sult [facility] BLOOD BANK [address] [place] [phone] * PLATELET COUNT (10/06/2024 4:12 PM MEN'S LEATHER DRESS BELT MAKER) Pathologist [facility] [place] PLATELET COUNT 224 140 - 440 thou/cu mm 10/06/2024 4:29 PM MEN'S LEATHER DRESS BELT MAKER [facility] MPV 10.0 6.5 - 11.0 fL 10/06/2024 4:29 PM MEN'S LEATHER DRESS BELT MAKER [facility] Blood BLOOD SPECIMEN / Unknown Venipuncture / Unknown 10/06/2024 4:12 PM MEN'S LEATHER DRESS BELT MAKER 10/06/2024 4:27 PM MEN'S LEATHER DRESS BELT MAKER Abhi Vogel MD HEMATOLOGY Final Re sult [facility] SENDOUT INTERNAL ZIP [phone] [place] [address] * Hemoglobin A1C (10/06/2024 4:12 PM MEN'S LEATHER [employer]ESS BELT MAKER) Pathologist [facility] [place] HEMOGLOBIN A1C MONITORING (POCT) 6.3 <=6.4 % 10/06/2024 6:05 PM MEN'S LEATHER DRESS BELT MAKER [facility] Blood BLOOD SPECIMEN / Unknown Venipuncture / Unknown 10/06/2024 4:12 PM MEN'S LEATHER DRESS BELT MAKER 10/06/2024 4:27 PM MEN'S LEATHER DRESS BELT MAKER Narrative [facility] - 10/06/2024 6:05 PM MEN[employer]S LE[employer]ER [employer]ESS BELT MAKER (<=6.9%) Indicates good control (7.0% to 7.9%) Indicates fair control (>=8.0%) Indicates poor control NOTE: These thresholds are guidelines and individual targets may vary. Falsely low levels may be seen with: Recent Transfusion, Recent Significant Blood Loss, Hemolytic Diseases, or Falsely elevated levels may be seen with: Untreated Anemias, Splenectomy Abhi Vogel MD CHEMISTRY Final Re sult [facility] SENDOUT INTERNAL ZIP [phone] [place] [address] * (ABNORMAL) BASIC METABOLIC PANEL (10/06/2024 4:12 PM MEN'S LEATHER DRESS BELT MAKER) Pathologist [facility] [place] SODIUM 134(L) 136 - 145 mmol/L 10/06/2024 4:49 PM [facility] POTASSIUM 3.9 3.5 - 5.1 mmol/L 10/06/2024 4:49 PM [facility] CHLORIDE 100 98 - 107 mmol/L 10/06/2024 4:49 PM [facility] CO2,TOTAL 24 22 - 29 mmol/L 10/06/2024 4:49 PM [facility] ANION GAP 10 5 - 18 10/06/2024 4:49 PM [facility] GLUCOSE 125(H) 70 - 99 mg/dL 10/06/2024 4:49 PM [facility] CALCIUM 8.8 8.8 - 10.4 mg/dL 10/06/2024 4:49 PM [facility] Comment: Reference ranges for this test were updated on 06/16/2024 to reflect our healthy population more accurately. Reference range changes are not retroactively applied to results, but previous results using the same methodology can be interpreted in the context of the new reference range. BUN 17 8 - 23 mg/dL 10/06/2024 4:49 PM [facility] CREATININE 0.76 0.70 - 1.20 mg/dL 10/06/2024 4:49 PM [facility] BUN/CREAT RATIO 22(H) 10 - 20 4:49 PM [facility] eGFR >90 >90 mL/min/1. 73m2 10/06/2024 4:49 PM [facility] Comment:As of 2021, eG FR is calculated by the CKD-EPI creatinine equation without race adjustment. eGFR can be influenced by muscle mass, exercise, and diet. The reported eGFR is an estimation only and is only applicable if the renal function is stable. Blood BLOOD SPECIMEN / Unknown Venipuncture / Unknown 10/06/2024 4:12 PM MEN'S LEATHER DRESS BELT MAKER 10/06/2024 4:27 PM MEN'S LEATHER DRESS BELT MAKER us Abhi Vogel MD CHEMISTRY Final Re sult [facility] SENDOUT INTERNAL ZIP [phone] [place] [address] * SCAN-CARDIAC STRIP (10/06/2024 12:00 AM MEN'S LEATHER DRESS BELT MAKER) Narrative 10/06/2024 12:00 AM M[employer]S LEATHER DRESS BELT MAKER Ordered by an unspecified provider. us Other Clinical Staff OTHER Final Resul t * ECHO TTE COMPLETE WO CONTRAST (08/28/2024 1:07 PM MEN'S LEATHER DRESS BELT MAKER) AORTIC VALVE MEAN PG 5 mmHg EJECTION FRACTION 67 % PEAK TR VELOCITY 2.7 m/s LVEDD 3.8 cm EJECTION FRACTION 60 - 65% Anatomical Region Laterality Modality Ultrasound 08/28/2024 10:4 4 AM MEN'S LEATHER [employer]ESS [employer]T MAKER Narrative 08/28/2024 1:14 PM MEN'S LEATHER DRESS BELT MAKER ECHOCARDIOGRAM SURESH MOLINA : 1950 74 years Study Date: 08/28/2024 10:44:58 AM Gender: M BP: 179/93 mmHg Height: 188.00 cm BSA: 2.10 m Weight: 84.00 kg Tech: SEN Referring MD: LEOPOLDO MUÑIZ Site: [facility] Reading Location: Mobile- [...] . This study was interpreted by an [facility] accredited facility. CC: [facility] (med records) [facility], Med/Surg - IP [facility]. Final Procedure Note Jony Donato MD - 08/28/2024 ECHOCARDIOGRAM SURESH MOLINA : 1950 74 years Study Date: 08/28/2024 10:44:58 AM Gender: M BP: 179/93 mmHg Height: 188.00 cm BSA: 2.10 m Weight: 84.00 kg Tech: NWA Referring MD: LEOPOLDO MUÑIZ Site: [facility] Reading Location: [place]- Patient Location: Inpatient. Procedure: 2D, Color Doppler [...] [facility] accredited facility. CC: [facility] (med records) [facility], Med/Surg - IP [facility]. Final us Leopoldo OLIVEIRA ECHO ORD Final [...] candidate for conscious sedation. The endoscope [id number] was passed through the anus andadvanced to [...] 9:22 AM Procedure Code(s): --- Professional --- 32226, Colonoscopy, flexible; with removalof tumor(s), polyp(s), or other lesion(s) bysnare technique Diagnosis Code(s): --- Professional --- Z86.010, Personal history of colonicpolyps D12.2, Benign neoplasm of ascending colon K57.30, Diverticulosis of large intestine without perforation or abscess withoutbleeding CPT copyright 2021 [employer]. All rights reserved. The codes documented in this report are preliminary and upon top lift nailer reviewmay be revised to meet current compliance [...] Gender: M Referring MD: WARREN PEÑA Site: [facility] Study performed: Iliac, (bilateral) Indication [...] study was performed and interpreted by [facility], a service accredited by the [employer]tersocietal Accreditation Commission (IAC/Vascular), www.intersocietal.org/vascular Report generated by [employer]. Final Procedure Note Valdemar Sandoval MD - 12/10/2020 VASCULAR ULTRASOUND REPORT SURESH MOLINA : 1950 Study Date: 12/09/2020 9:05:56 AM Age: 70 years Tech: Elo Juarez Gender: M Referring MD: WARREN PEÑA Site: [facility] Study performed: Iliac, (bilateral) Indication [...] This study was performed and interpreted by [facility], a service accredited by the Intersocietal Accreditation Commission (IAC/Vascular),www.intersocietal.org/vascular Report generated by [employer]. Final us Warren Peña MD Fi nal Result from Last 3 Months or Most Recently Relevant to Health Maintenance Insurance [facility] MED[facility] PART B HB ONLY [facility] MEDICARE PB ONLY MEDICARE PART A HB ONLY Advance Directives * Full Code (Latest Code Status on File) Date Activated Date Inactivated Comments 10/06/2024 2:51 PM 10/10/2024 2:11 PM Question Answer Comments Code Status Discussion: Reviewed Preferences * Full Code Date Activated Date Inactivated Comments 01/03/2021 6:00 AM 01/04/2021 1:54 PM Question Answer Comments Code Status Discussion: Not Discussed Care Teams Hydraulic Press Servicer Relationship Specialty Start Date End Date Santi Juarez MD [address] [place] [phone] PCP - General Family Practice 12/07/20
--- OUTSIDE RECORDS SUMMARY | 2024-10-25 02:41 | XMS_ITS | Clinical Summary ---
Author Organization [facility] Address [address] [place] [address] Care Team Providers Care Licensed Loan Officer Name Role Phone Guero Hutchinson MD [...] on file Legal Sex Male 3:05 AM HOOP PUNCH AND COILER OPERATOR Gender Identity Not on file Sexual Orientation Not on file Last Filed Vital Signs Vital Sign Reading Time Taken Comments Blood Pressure 122/78 09/10/2017 9:11 AM HOOP P[employer]CH AND COILER OPERATOR Pulse 70 09/10/2017 9:11 AM HOOP P[employer]CH AND COILER OPERATOR Temperature 36.7 C (98 F) 03/26/2013 9:28 AM CDT Respiratory Rate 18 03/26/2013 9:28 AM CDT Oxygen Saturation 98% 03/26/2013 9:28 AM CDT Inhaled Oxygen Concentration - - Weight 106.6 kg (235 lb) 09/10/2017 9:11 AM HOOP PUNCH AND COILER OPERATOR Height 188 cm (6' 2) 09/10/2017 9:11 AM HOOP P[employer]CH AND COILER OPERATOR Body Mass Index 30.17 09/10/2017 9:11 AM HOOP P[employer]CH AND COILER OPERATOR Plan of Treatment Not on file Insurance MEDICARE Care Teams Licensed Loan Officer Relationship Specialty Start Date End Date Guero Hutchinson MD [phone] [place] [address] [place] [id number] PCP - General Urology 11/14/15
[2024-10-25] MEDS: HYDROmorphone 0.5 mg/0.5 ml inj 0.25 MG IVP (02:45)
[2024-10-25 02:50] LABS: Lactate* 0.7 mmol/L (0.5-1.9)
[2024-10-25 02:51] LABS: Basophils Absolute Auto 0.02 K/uL (0.00-0.30); Basophils Percent Auto 0.2 % (0.0-3.0); Eosinophils Absolute Auto 0.07 K/uL (0.00-0.50); Eosinophils Percent Auto 0.8 % (0.0-7.0); Hematocrit 26.9 % (37.0-53.0); Hemoglobin* 8.7 gm/dL (13.5-17.5); Immature Granulocytes Abs Auto 0.04 K/uL (0.00-0.30); Immature Granulocytes Pct Auto 0.4 %; Lymphocytes Percent Auto 13.5 % (20-44); Mean Corpuscular HGB Conc 32 gm/dL (32-36); Mean Corpuscular Hemoglobin 29 pg (26-34); Mean Corpuscular Volume 89 fL (80-100); Monocytes Percent Auto 10.1 % (0.0-11.0); Platelet Count* 302 K/uL (140-440); RDW Coefficient of Variation % 12.8 % (11.5-15.5); Red Blood Count 3.01 m/uL (4.30-5.90)
[2024-10-25 02:52] LABS: Slide Review Reflex No
[2024-10-25 03:10] LABS: Albumin* 3.4 g/dL (3.3-5.0); Chloride* 100 mmol/L (96-114)
[2024-10-25 03:11] LABS: Potassium* 4.3 mmol/L (3.6-5.1); Sodium* 134 mmol/L (135-149)
[2024-10-25 03:13] LABS: Alkaline Phosphatase* 80 U/L (40-150); Anion Gap 5 mEq/L (7-15); Aspartate Amino Transferase* 35 U/L (12-35); Bilirubin Total* 0.8 mg/dL (0.1-1.5); Blood Urea Nitrogen* 10 mg/dL (7-30); Carbon Dioxide* 29 mmol/L (20-32); Creatinine* 0.7 mg/dL (0.5-1.5); Est. Creatinine Clearance* 77.11; Estimated Glomerular Filt Rate 98 ml/min; Total Protein* 6.3 g/dL (6.0-8.3)
[2024-10-25 03:14] LABS: Alanine Aminotransferase* 31 U/L (4-50); Calcium* 8.7 mg/dL (8.4-10.6); Glucose* 102 mg/dL (60-115)
[2024-10-25 03:16] LABS: C Reactive Protein* 8.4 mg/dL (0.5-1.0)
[2024-10-25] MEDS: CIPROFLOXACIN 500 MG TABLET PO (04:29)
[2024-10-25] MEDS: ACETAMINOPHEN 500 MG TABLET 1000 MG PO (04:34)
[2024-10-25 05:30] LABS: Appearance Urine Clear (Clear); Bilirubin Urine Negative (Negative); Blood Urine 2+ (Negative); Color Urine Yellow (Yellow); Glucose Urine Negative (Negative); Ketones Urine Negative (Negative); Leukocyte Esterase Urine 3+ (Negative); Nitrite Urine Negative (Negative); Protein Urine 1+ (Negative)
[2024-10-25 05:41] LABS: Bacteria Urine Few; RBC Urine 0-2 (0-2); Squamous Epithelial Cell Urine Few (None-Few)
== END 2024-10-25 07:20 | disposition home or self-care (01) ==
PROVIDERS: Emergency Provider Family Medicine; PCP Family Medicine
DX: N45.3 Epididymo-orchitis (principal)
CPT/HCPCS: 36415; 76870; 80053; 81001; 81003; 83605; 85025; 86140; 87086; 93976; 96374; 99284; A9270; J1171

== ENCOUNTER 2024-10-29 16:43 | Emergency (ER) | payer MEDICARE, BC, SELFPAY ==
[2024-10-29 16:48] VITALS: BP 175/76; PULSE 73; RESP 18; TEMP 36.4; O2SAT 99; BMI 23.1
[2024-10-29 18:25] VITALS: BP 184/81; PULSE 54; RESP 16; TEMP 36.3
--- NOTE | 2024-10-29 18:42 | ED_ITS ---
HPI - Male Genitourinary General Chief complaint: Urogenital Problems, Male Stated complaint: Catheter issue--bleeding Time Seen by Provider: 10/29/24 18:19 History of Present Illness HPI Narrative: This 74-year-old male has an indwelling Fragoso catheter and had it changed by and nurse earlier today. The nurse had difficulty placing the catheter and switched to a smaller catheter size. He comes in now because he noticed a small amount of blood in the tube but has not had any output since the catheter was placed. He does not report any other symptoms. Related Data Home Medications ?Medication ?Instructions ?Recorded ?Confirmed mupirocin 2 % topical ointment 1 applic topical TID PRN 09/28/24 10/29/24 Previous Rx's ?Medication ?Instructions ?Recorded epinephrine 0.3 mg/0.3 mL 0.3 ml IM .As Needed as needed PRN 07/03/23 injection, auto-injector anaphylaxis #2 ea diltiazem HCl 60 mg 60 mg PO BID #60 caps 09/01/24 capsule,extended release 12 hr amlodipine 10 mg tablet 10 mg PO DAILY #90 tabs 09/28/24 atorvastatin 40 mg tablet 40 mg PO HS #90 tabs 09/28/24 glipizide 10 mg tablet, extended 10 mg PO DAILY #90 tabs 09/28/24 release 24 hr lisinopril 10 mg tablet 10 mg PO DAILY #90 tabs 09/28/24 metformin 500 mg tablet,extended 1,000 mg (2 x 500 mg) PO QDAY #180 09/28/24 release 24 hr tabs apixaban 5 mg tablet (Eliquis) 5 mg PO BID #60 tabs 10/19/24 levofloxacin 500 mg tablet 500 mg PO DAILY #10 tabs 10/25/24 Allergies Allergy/AdvReac Type Severity Reaction Status Date / Time bee venom protein (honey bee) Allergy Verified 10/29/24 16:52 Penicillins Allergy Verified 10/29/24 16:52 tamsulosin (From Flomax) AdvReac Intermediate orthostatic Verified 10/29/24 16:52 hypotension Review of Systems Status of ROS: Reports: 10 or more systems reviewed and unremarkable except as noted in History and below Narrative: Constitutional: No fevers, no weight gain or loss. Eyes: No discharge. No vision changes. HENT: No congestion, no sore throat, no ear pain. Cardiovascular: No chest pain, no palpitations. Respiratory: No shortness of breath, no wheezes, no cough. Gastrointestinal: No abdominal pain, no vomiting, no diarrhea. Genitourinary: No dysuria, no hematuria. Musculoskeletal: Normal range of motion. Skin: No rashes, no pruritis. Neurological: No dizziness, weakness, sensory change, speech change. Endo/Heme/Allergies: No bruising or bleeding. No polydipsia. Pysch: no suicidality, no anxiety, no insomnia. All other systems reviewed and are negative. [facility] Medical History Atrial fibrillation ?I48.91 - Unspecified atrial fibrillation (ICD-10) Hyponatremia ?E87.1 - Hypo-osmolality and hyponatremia (ICD-10) Chronic hyponatremia ?E87.1 - Hypo-osmolality and hyponatremia (ICD-10) Right lumbar radiculopathy ?M54.16 - Radiculopathy, lumbar region (ICD-10) Leukocytosis ?D72.829 - Elevated white blood cell count, unspecified (ICD-10) Lumbar radiculopathy ?M54.16 - Radiculopathy, lumbar region (ICD-10) Chronic low back pain ?M54.50 - Low back pain, unspecified (ICD-10) ?G89.29 - Other chronic pain (ICD-10) Cerebrovascular accident (CVA) (07/2020) ?I63.9 - Cerebral infarction, unspecified (ICD-10) Bladder cancer (2014) ?C67.9 - Malignant neoplasm of bladder, unspecified (ICD-10) Allergic to bees ?Z91.030 - Bee allergy status (ICD-10) Adenomatous polyp of colon ?D12.6 - Benign neoplasm of colon, unspecified (ICD-10) Gout ?M10.9 - Gout, unspecified (ICD-10) Hypertension ?I10 - Essential (primary) hypertension (ICD-10) Diabetes mellitus ?E11.9 - Type 2 diabetes mellitus without complications (ICD-10) Abnormal gait ?R26.9 - Unspecified abnormalities of gait and mobility (ICD-10) Surgical History History of amputation of toe ?Z89.429 - Acquired absence of other toe(s), unspecified side (ICD-10) History of colonoscopy ?Z98.890 - Other specified postprocedural states (ICD-10) History of tonsillectomy (1969) ?Z90.89 - Acquired absence of other organs (ICD-10) History of right-sided carotid endarterectomy ?Z98.890 - Other specified postprocedural states (ICD-10) Social History Narrative: SOCIAL HISTORY: He is single. Retired. One daughter living in [facility] that he does not see much. No longer working at [employer]. No longer working for the [employer]. 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 Code status is full. He does not want prolonged life support. His nephew, Adrien Araiza, of [place] is healthcare power of patent attorney HABITS: Sporadic walking for exercise. Sporadic smoking in the past. He denies smoking at this point. No alcohol or recreational drug use. FAMILY HISTORY: No changes. Parents both . He did not know them well. Father around 80 of unknown cause. Mother around 70 of unknown cancer. Three sisters all living with borderline diabetes otherwise healthy. What is your current living situation?: I presently have a place to live Problems where you live: no known problems Problems where you live details: N/A In the past 12 months, utilities in danger of being shut off: no In past 12 months, lack of transportation kept you from medical appts, meetings, work, or getting things needed for daily living: no In the past 12 mos, have been you worried that your food would run out before you had money to buy more?: never true In the past 12 mos, the food you bought just didn't last and you didn't have money to buy more?: never true Highest level of school completed/degree received: high school graduate Smoking Status: Former smoker What tobacco products do you use: cigarettes Smoking quit date/years: <= 15 years ago Do you use any of these nicotine containing products: None Second hand tobacco smoke exposure: No How often do you have a drink containing alcohol: never AUDIT-C Alcohol total score: 0 Non-prescribed substance use: marijuana (any form) How often does anyone, including family, friends and others, physically hurt you : never How often does anyone, including family, friends and others, insult or talk down to you: never How often does anyone, including family, friends and others, threaten you with harm: never How often does anyone, including family, friends and others, scream or curse at you: never service: Yes Exam Narrative: Exam Narrative: Constitutional: Well-developed, well-nourished, no acute distress. HEENT: Normocephalic, atraumatic. Neck: Normal range of motion. Nontender. Supple. Heart: Intact distal pulses. Lungs: No chest discomfort. No wheezes, rhonchi, or rales. Abdomen: Nontender. Back: Normal range of motion. Extremities: Normal range of motion. No injury. Skin: Intact. No rash. Warm. No erythema or pallor. Neurologic: No altered sensation. No weakness. Alert and oriented. Psychiatric: No suicidality. No anxiety or depression. No insomnia. Nursing notes and vitals signs are reviewed. Const: Vital Signs, click to edit/add: Vital Signs - 24 hr 10/29/24 16:48 10/29/24 18:25 Temperature 97.5 F L 97.4 F L Pulse Rate [Right Pulse Oximeter] 73 54 L Respiratory Rate 18 16 Blood Pressure [Ri ght Upper Arm] 175/76 H 184/81 H Pulse Oximetry 99 Oxygen Delivery Me thod Room Air Course Vital Signs Vital signs: Initial Vital Signs Temperature 97.5 F L 10/29/24 16:48 Temperature Source Temporal Artery Scan 10/29/24 16:48 Pulse Rate 73 10/29/24 16:48 Pulse Rhythm Regular 10/29/24 16:48 Pulse Strength 3+ Normal 10/29/24 16:48 Respiratory Rate 18 10/29/24 16:48 Blood Pressure 175/76 H 10/29/24 16:48 Blood Pressure Mean 109 H 10/29/24 16:48 Blood Pressure Position Sitting 10/29/24 16:48 Pulse Oximetry 99 10/29/24 16:48 Oxygen Delivery Method Room Air 10/29/24 16:48 Vital Signs Temperature 97.5 F L 10/29/24 16:48 Pulse Rate 73 03/20/25 16:48 Respiratory Rate 18 10/29/24 16:48 Blood Pressure 175/76 H 10/29/24 16:48 Pulse Oximetry 99 10/29/24 16:48 Oxygen Delivery Method Room Air 10/29/24 16:48 Temperature 97.4 F L 10/29/24 18:25 Pulse Rate 54 L 10/29/24 18:25 Respiratory Rate 16 10/29/24 18:25 Blood Pressure 184/81 H 10/29/24 18:25 Pulse Oximetry 99 10/29/24 16:48 Oxygen Delivery Method Room Air 10/29/24 16:48 MDM - Male Genitourinary MDM Narrative Medical decision making narrative: This patient has no sign of output of urine from his recently replaced catheter. There are small amounts of blood in the tube. The catheter was irrigated with 120 mL of fluid. This was all then allowed to drain and again repeat irrigation occurred. The catheter seems to be functioning properly. The patient was given some glasses of water to drink and he is now producing urine that is draining properly through the tube. He is okay to be discharged home. Discharge Plan Discharge Clinical Impression: Fragoso catheter problem Patient Disposition: Home, Self-Care Condition: Improved Additional Instructions: Continue current plans. Follow up with MD return if symptoms are recurrent or worsening. Prescriptions: No Action mupirocin 2 % ointment 1 applic topical TID PRN amlodipine 10 mg tablet 10 mg PO DAILY Qty: 90 3RF atorvastatin 40 mg tablet 40 mg PO HS Qty: 90 3RF glipizide 10 mg tablet extended release 24hr 10 mg PO DAILY Qty: 90 3RF lisinopril 10 mg tablet 10 mg PO DAILY Qty: 90 3RF metformin 500 mg tablet extended release 24 hr 1,000 mg PO QDAY Qty: 180 3RF epinephrine 0.3 mg/0.3 mL auto-injector 0.3 ml IM .As Needed as needed PRN (Reason: anaphylaxis) Qty: 2 0RF Eliquis 5 mg tablet 5 mg PO BID Qty: 60 11RF levofloxacin 500 mg tablet 500 mg PO DAILY Qty: 10 0RF diltiazem HCl 60 mg capsule,extended release 12 hr 60 mg PO BID Qty: 60 2RF Follow Up/Referrals: Santi Juarez MD [Primary Care Provider] - Stand Alone Forms: [employer] Info Instructions
--- OUTSIDE RECORDS SUMMARY | 2024-10-29 19:25 | XMS_ITS | Continuity of Care Document ---
Author Organization [facility] Address [address] [place] [id number] Care Team Providers Care Cardiac Nurse Practitioner Name Role Phone ALEKSANDRASHEA Marcial Primary Care Provider Assessment Encounter Date Assessment [...] Not available Not available Not available LAB CATH CHANGE 2024 02:00P M CLINICAL_ SCHEDULE Not available [...] By Organization Details Last Modified Time 10/15/2024 [id number] Benign prostatic hyperplasia with lower urinary tract [...] am No observ ation record ed. [email or web address] [facility] [address] [place], [address], 10/13/2024 08:55:07 Result Notes None recorded. Problems Name Problem SNOMED Code Status Onset Date Resolution Date Notes Provider Name and Address Organization Details Recorded Time Retention of urine 814122188 Active 2024 Kurt rajan [facility] 5 12:52:01 Type 2 diabetes mellitus 46884357 Active 2024 Kurtpapo Gaspar satinder [facility] 5 12:52:35 Hypertensiv e disorder 73897391 Active 2024 Kurt rajan [facility] 5 12:52:38 Lower urinary tract symptoms due to benign prostatic hypertrophy 6550355106177 1 Active 2024 Kurt Gaspar satinder [facility] 5 10:56:02 Problem Notes None recorded. 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/TENDER/PSA RESULTS cancelled Elo Bishop [facility] 10/05/2024 11:50:19 5 Urodynamic Studies completed Dwaine Kong MD [address] [place] [address],[address] [place] [address], [phone], [facility] 10/11/2024 11:34:02 5 Swenson Catheter Insertion completed Chelsey Most [facility] 09/29/2024 15:46:01 5 Cystoscopy- male completed Obey Pedraza MD [address] [place] [address],[facility] [address], [place], [phone], [facility] 09/09/2024 11:09:52 5 Past Data Reviewed completed Obey Pedraza MD [address] [place] [address],[facility] [address], [place], [phone], [facility] 09/09/2024 09:40:02 4 [facility] 10:56:16 Imaging Results None recorded. Procedure Notes None recorded. Medical Equipment None Reported. Allergies Allergen ID Allergen Name Allergen Category Reaction Reaction Severity Criticality Documentation Date Start Date Code Code System Note Provider Name and Address Organization Details Recorded Time 791119 honey bee venom medicatio n Not available Not available Not available 09/01/2024 62749 7 RxNorm Not Available Not Available Not Available 309274 Product containin g penicilli n (product) medicatio n Not available Not available Not available 09/01/2024 26534 8001 SNOMED Not Available Not Available Not [...] completed Not Available Not Available Not Available levofloxaci n 500 mg daily x 10 days 2024 active Not Available Not Available Not Avai lable glipizide ER 10 mg 24 hr tablet,exte nded release Take 1 tablet every day by oral route. active Not Available Not Available No t Available Eliquis 5 mg twice daily active Not Available Not Available No t Available Vitals Date Recorded Body height Provider Name an d Address Organization Details Last Updated DateTime 10/15/2024 187.96 cm Kurt Owens [facility] 13:52:17 Social History Question Answer Notes LastModified by Organizat ion Details LastModified Time Tobacco Smoking Status Former Smoker Kurt Owens [facility] 09/09/2024 10:55:43 What Is Your Level Of Alcohol Consumption? None Information not available 09/09/2024 What Is Your Level Of Caffeine Consumption? None Information not available 09/09/2024 When Did You Quit Smoking? 6-10yearssi [email or web address] Information not available 09/09/2024 What Was The Date Of Your Most Recent Tobacco Screening? 10/29/2024 [email or web address] Information not available 10/29/2024 How Much Tobacco Do You Smoke? No [...] trivalent, PF 4 completed Kurt Meath null, [facility] 09/09/2024 10:52:31 zoster recombinant 3 completed Kurt Meath null, [facility] 09/09/2024 10:52:31 zoster recombinant 3 completed Kurt Meath null, [facility] 09/09/2024 10:52:31 Influenza, high-dose, quadrivalent, PF 1 completed Kurt Meath null, [facility] 09/09/2024 10:52:31 Influenza, high-dose, quadrivalent, PF 0 completed Kurt Meath null, [facility] 09/09/2024 10:52:31 Influenza, adjuvanted, quadrivalent, PF 3 completed Kurt Meath null, [facility] 09/09/2024 10:52:31 Influenza, adjuvanted, quadrivalent, PF 2 completed Kurt Meath null, [facility] 09/09/2024 10:52:31 COVID-19, mRNA, LNP-S, PF, 30 mcg/0.3 mL dose 1 completed Kurt Meath null, [facility] 09/09/2024 10:52:31 COVID-19, mRNA, LNP-S, PF, 30 mcg/0.3 mL dose 1 completed Kurt Meath null, [facility] 09/09/2024 10:52:31 COVID-19, mRNA, LNP-S, PF, 30 mcg/0.3 mL dose 1 completed Kurt Meath null, [facility] 09/09/2024 10:52:31 COVID-19, mRNA, LNP-S, bivalent, PF, 30 mcg/0.3 mL dose 2 completed Kurt Meath null, [facility] 09/09/2024 10:52:31 RSV, recombinant, protein subunit RSVpreF, adjuvant reconstituted, 0.5 mL, PF 4 completed Kurt Meath null, [facility] 09/09/2024 10:52:31 COVID-19, mRNA, LNP-S, PF, 50 mcg/0.5 mL 4 completed Kurt Meath null, [facility] 09/09/2024 10:52:31 COVID-19, mRNA, LNP-S, PF, 50 mcg/0.5 mL 3 completed Kurt Meath null, [facility] 09/09/2024 10:52:31 pneumococcal polysaccharide PPV23 8 completed Kurt Meath null, [facility] 09/09/2024 10:52:31 Tdap 6 completed Kurt Meath null, [facility] 09/09/2024 10:52:31 Pneumococcal conjugate PCV 13 7 completed Kurt Meath null, [facility] 09/09/2024 10:52:31 zoster live 7 completed Kurt Meath null, [facility] 09/09/2024 10:52:31 Influenza, high-dose, trivalent, PF 8 completed Kurt Meath null, [facility] 09/09/2024 10:52:31 Influenza, high-dose, trivalent, PF 7 completed Kurt Meath null, [facility] 09/09/2024 10:52:31 Influenza, high-dose, trivalent, PF 9 completed Kurt Meath null, [facility] 09/09/2024 10:52:31 Td (adult), 2 Lf tetanus toxoid, preservative free, adsorbed 5 completed Kurt Meath null, [facility] 09/09/2024 10:52:31 Hep A, adult 3 completed Kurt Meath null, [facility] 09/09/2024 10:52:31 typhoid, ViCPs 3 completed Kurt Meath null, [facility] 09/09/2024 10:52:31 influenza, seasonal, intradermal, preservative free 2 completed Kurt Meath null, [facility] 09/09/2024 10:52:31 influenza, seasonal, intradermal, preservative free 1 completed Kurt Meath null, [facility] 09/09/2024 10:52:31 Influenza, split virus, quadrivalent, PF 6 completed Kurt Meath null, [facility] 09/09/2024 10:52:31 Influenza, split virus, quadrivalent, PF 4 completed Kurt Meath null, [facility] 09/09/2024 10:52:31 Past Encounters Encounter ID Performer Location Encounter Start Date Encounter Closed Date Diagnosis/Indication Diagnosis SNOMED-CT Code Diagnosis ICD10 Code Diagnosis Note [id number] MD Dinesh Manriquez_[employer] nora [address] [place] [phone] 09/29/2024 12:37:22 10/12/2024 09:16:29 Lower urinary tract symptoms due to benign prostatic hypertrophy 7879685303 9101 N40.1 Retention of urine 97263 4002 R33.9 [id number] Talibdereck Muñozro_[employer] [address] [place] [phone] 10/02/2024 11:30:07 10/07/2024 04:01:24 Urinary tract infectious disease 72710444 N39.0 Per UTI/bath house attendant protocol. UA/UC today. [id number] MD Dinesh Fish_W[employer]ionne dbayden [address] [place] [phone] 10/15/2024 13:50:10 10/19/2024 09:45:18 Retention of urine 377027249 R33.9 Lower urin winsome tract symptoms due to benign prostatic hypertrophy 8926577398 9101 N40.1 Renato hematuria 34010173 5 R31.0 Health Concerns Section Related Observation LastModified by Organization Detai ls LastModified Time None Recorded Concern Status LastModified by Organization Details LastModified Time None Recorded Payers Encounter Date Sequence Insurance Name Policy Number Policy Bustamante Covered Member ID Bustamante Member ID Guarantor Name 10/15/2024 1 [place] [employer] [facility] Suresh Martinez [id number] Suresh Uribecurry 10/15/2024 2 [facility] [id number] Suresh Martinez [id number] Suresh Martinez Notes Date Note Type Note [...] catheterized.He returned shortly thereafter with repeat retention.A Swenson was placed with 2.0 liters of output and he developed gross hematuria and was admitted at [facility] for continuous bladder irrigation.He has failed attempted [...] evidence of outlet obstruction.He was admitted at [facility] from 10/06/2024 - 10/10/2024 with gross hematuria and clot urinary retention.He required cystoscopy, clot evacuation, and fulguration of bleeding 10/08/2024.He is here today to discuss next steps in management. Obey Pedraza MD [address] [facility] [address], [place], [address], [facility] 10/15/2024 14:28:58
--- OUTSIDE RECORDS SUMMARY | 2024-10-29 19:25 | XMS_ITS | Clinical Summary ---
Author Organization [facility] Address [address] [place] [address] Care Team Providers Care Recreation Therapy Director Name Role Phone Guero Hutchinson MD Primary [...] on file Legal Sex Male 3:05 AM [employer] Gender Identity Not on file Sexual Orientation Not on file Last Filed Vital Signs Vital Sign Reading Time Taken Comments Blood Pressure 122/78 09/10/2017 9:11 AM [employer] Pulse 70 09/10/2017 9:11 AM [employer] Temperature 36.7 C (98 F) 03/26/2013 9:28 AM CDT Respiratory Rate 18 03/26/2013 9:28 AM CDT Oxygen Saturation 98% 03/26/2013 9:28 AM CDT Inhaled Oxygen Concentration - - Weight 106.6 kg (235 lb) 09/10/2017 9:11 AM [employer] Height 188 cm (6' 2) 09/10/2017 9:11 AM [employer] Body Mass Index 30.17 09/10/2017 9:11 AM [employer] Plan of Treatment Not on file Insurance MEDICARE Care Teams Recreation Therapy Director Relationship Specialty Start Date End Date Guero Hutchinson MD [address] [place] [address] [place] [id number] PCP - General Urology 11/14/15
--- OUTSIDE RECORDS SUMMARY | 2024-10-29 19:25 | XMS_ITS | Continuity of Care Document ---
Author Organization [facility] Address [address] [place] [address] Care Team Providers Care Teacher Counselor Name Role Phone CRISTIANOSHEA BARBOSA Primary Care Provider Assessment No assessment recorded. [...] dipstick - Per UTI protocol 2024 025 [facility], [address], [address], [place], [address], 10/02/2024 11:59:38 urinalysi s, microscop ic [address] [facility], [address], [address], [place], [address], 10/02/2024 11:46:20 culture, urine 2024 025 [facility], [address], [address], [place], [address], 10/04/2024 12:02:22 Referral None recorded. Procedures None recorded. Surgeries None recorded. Imaging None recorded. Medication Orders None recorded. Patient TargetsNo targets recorded. Patient InstructionsNo instructions recorded. Reason for Referral None Reported. Results Created Date Observation Date Name Description Value Unit Range Abnormal Flag Note LastModifiedBy Organization Detail LastModifiedTime 09/23/1909/23/2024 CT, urogr am No observ ation record ed. [email or web address] [facility] [address], [place], [address], 10/13/2024 08:55:07 Result Notes None recorded. Problems Name Problem SNOMED Code Status Onset Date Resolution Date Notes Provider Name and Address Organization Details Recorded Time Retention of urine 382271670 Active 2024 [facility] 5 12:52:01 Type 2 diabetes mellitus 63712013 Active 2024 [facility] 5 12:52:35 Hypertensiv e disorder 72888644 Active 2024 [facility] 5 12:52:38 Lower urinary tract symptoms due to benign prostatic hypertrophy 6805841356985 1 Active 2024 [facility] 5 10:56:02 Problem Notes None recorded. Procedures Surgical History Date Name Laterality Status Provider Name and Address Organization Details Recorded Time 5 SWENSON CHANGE completed Claudia Rossi [facility] 10/29/2024 16:42:14 5 COMPLEX VISIT completed Obey Pedraza MD [address] [place] [address],[address], [place], [address], [facility] 10/15/2024 14:26:19 5 Blood Draw/COUNSELING CENTER DIRECTOR/PSA RESULTS cancelled Elo Bishop [facility] 10/05/2024 11:50:19 5 Urodynamic Studies completed Dwaine Kong MD [address] [place] [address],[address], [address], [facility] 10/11/2024 11:34:02 5 Swenson Catheter Insertion completed Chelsey Most [facility] 09/29/2024 15:46:01 5 Cystoscopy- male completed Obey Pedraza MD [address] [facility],[address], [place], [address], [facility] 09/09/2024 11:09:52 5 Past Data Reviewed completed Obey Pedraza MD [address] [place] [address],[address], [place], [address], [facility] 09/09/2024 09:40:02 4 Colonoscopy completed Kurt [facility] 09/09/2024 10:56:16 Imaging Results None recorded. Procedure Notes None recorded. Medical Equipment None Reported. Allergies Allergen ID Allergen Name Allergen Category Reaction Reaction Severity Criticality Documentation Date Start Date Code Code System Note Provider Name and Address Organization Details Recorded Time 995237 honey bee venom medicatio n Not available Not available Not available 09/01/2024 16451 7 RxNorm Not Available Not Available Not Available 797009 Product containin g penicilli n (product) medicatio n Not available Not available Not available 09/01/2024 66609 8001 SNOMED Not Available Not Available Not [...] Updated DateTime 10/02/2024 187.96 cm 23.1 kg/m2 35417.63 g Eleni Thomas [facility] 10/02/2024 11:35:02 Social History Question Answer Notes LastModified by Organizat ion Details LastModified Time Tobacco Smoking Status Former Smoker [facility] 09/09/2024 10:55:43 What Is [...] trivalent, PF 4 completed Kurt Meath null, [facility] 09/09/2024 10:52:31 zoster recombinant 3 completed Kurt Meath null, [facility] 09/09/2024 10:52:31 zoster recombinant 3 completed Kurt Meath null, [facility] 09/09/2024 10:52:31 Influenza, high-dose, quadrivalent, PF 1 completed Kurt Meath null, [facility] 09/09/2024 10:52:31 Influenza, high-dose, quadrivalent, PF 0 completed Kurt Meath null, [facility] 09/09/2024 10:52:31 Influenza, adjuvanted, quadrivalent, PF 3 completed Kurt Meath null, [facility] 09/09/2024 10:52:31 Influenza, adjuvanted, quadrivalent, PF 2 completed Kurt Meath null, [facility] 09/09/2024 10:52:31 COVID-19, mRNA, LNP-S, PF, 30 mcg/0.3 mL dose 1 completed Kurt Meath null, [facility] 09/09/2024 10:52:31 COVID-19, mRNA, LNP-S, PF, 30 mcg/0.3 mL dose 1 completed Kurt Meath null, [facility] 09/09/2024 10:52:31 COVID-19, mRNA, LNP-S, PF, 30 mcg/0.3 mL dose 1 completed Kurt Meath null, [facility] 09/09/2024 10:52:31 COVID-19, mRNA, LNP-S, bivalent, PF, 30 mcg/0.3 mL dose 2 completed Kurt Meath null, [facility] 09/09/2024 10:52:31 RSV, recombinant, protein subunit RSVpreF, adjuvant reconstituted, 0.5 mL, PF 4 completed Kurt Meath null, [facility] 09/09/2024 10:52:31 COVID-19, mRNA, LNP-S, PF, 50 mcg/0.5 mL 4 completed Kurt Meath null, [facility] 09/09/2024 10:52:31 COVID-19, mRNA, LNP-S, PF, 50 mcg/0.5 mL 3 completed Kurt Meath null, [facility] 09/09/2024 10:52:31 pneumococcal polysaccharide PPV23 8 completed Kurt Meath null, [facility] 09/09/2024 10:52:31 Tdap 6 completed Kurt Meath null, [facility] 09/09/2024 10:52:31 Pneumococcal conjugate PCV 13 7 completed Kurt Meath null, [facility] 09/09/2024 10:52:31 zoster live 7 completed [facility] null, [facility] 09/09/[facility] 10:52:31 Influenza, high-dose, trivalent, PF 8 completed Kurt Meath null, [facility] 09/09/2024 10:52:31 Influenza, high-dose, trivalent, PF 7 completed Kurt Meath null, [facility] 09/09/2024 10:52:31 Influenza, high-dose, trivalent, PF 9 completed Kurt Meath null, [facility] 09/09/2024 10:52:31 Td (adult), 2 Lf tetanus toxoid, preservative free, adsorbed 5 completed Kurt Meath null, [facility] 09/09/2024 10:52:31 Hep A, adult 3 completed Kurt Meath null, [facility] 09/09/2024 10:52:31 typhoid, ViCPs 3 completed Kurt Meath null, [facility] 09/09/2024 10:52:31 influenza, seasonal, intradermal, preservative free 2 completed Kurt Meath null, [facility] 09/09/2024 10:52:31 influenza, seasonal, intradermal, preservative free 1 completed Kurt Owens null, [facility] 09/09/2024 10:52:31 Influenza, split virus, quadrivalent, PF 6 completed Kurt Meath null, [facility] 09/09/2024 10:52:31 Influenza, split virus, quadrivalent, PF 4 completed Kurtpapo Gasparh null, [facility] 09/09/2024 10:52:31 Past Encounters Encounter ID Performer Location Encounter Start Date Encounter Closed Date Diagnosis/Indication Diagnosis SNOMED-CT Code Diagnosis ICD10 Code Diagnosis Note [id number] Obey Pedraza MD [facility] [address] [place] [phone] 09/09/2024 10:45:26 09/09/2024 11:49:30 Lower urinary tract symptoms due to benign prostatic hypertrophy 2656513396 9101 N40.1 Retention of urine 75251 4002 R33.9 Renato hematuria 24420904 5 R31.0 [id number] Dwaine Kong [facility] [address] [place] [phone] 09/29/2024 12:37:22 10/12/2024 09:16:29 Lower urinary tract symptoms due to benign prostatic hypertrophy 5093846872 9101 N40.1 Retention of urine 97609 4002 R33.9 [id number] [facility] [address] [place] [phone] 10/02/2024 11:30:07 10/07/2024 04:01:24 Urinary tract infectious disease 55923461 N39.0 Per UTI/electronic device repairer protocol. UA/UC today. Health Concerns Section Related Observation LastModified by Organization Detai ls LastModified Time None Recorded Concern Status LastModified by Organization Details LastModified Time None Recorded Payers Encounter Date Sequence Insurance Name Policy Number Policy Bustamante Covered Member ID Bustamante Member ID Guarantor Name 10/02/2024 1 [place] [employer] Suresh Martinez [id number] Suresh Martinez 10/02/2024 2 [facility] [id number] Suresh Martinez [id number] Suresh Martinez
--- OUTSIDE RECORDS SUMMARY | 2024-10-29 19:26 | XMS_ITS | Continuity of Care Document ---
Author Organization [facility] Address [address] [place] [address] Care Team Providers Care Chemical Milling Processor Name Role Phone SHEA DURON Primary Care Provider [phone] Assessment No assessment recorded. Plan of Treatment [...] By Organization Details Last Modified Time 09/29/2024 [id number] Impression: 1) Smaller capacity, normal compliant bladder [...] ed. [email or web address] [facility] [address], [place], [address], 10/13/2024 08:55:07 Result Notes None recorded. Problems Name Problem SNOMED Code Status Onset Date Resolution Date Notes Provider Name and Address Organization Details Recorded Time Retention of urine 876504176 Active 2024 Kurt Meat null, [facility] 5 12:52:01 Type 2 diabetes mellitus 23146967 Active 2024 Kurt Meat null, [facility] 5 12:52:35 Hypertensiv e disorder 87382159 Active 2024 [facility] null, [facility] 5 12:52:38 Lower urinary tract symptoms due to benign prostatic hypertrophy 4566825579142 1 Active 2024 [facility], [facility] 5 10:56:02 Problem Notes None recorded. Procedures Surgical History Date Name Laterality Status Provider Name and Address Organization Details Recorded Time 5 SWENSON CHANGE completed Claudia Rossi [facility] 10/29/2024 16:42:14 5 COMPLEX VISIT completed Obey Pedraza MD [address] [place] [address],[address], [place], [address], [facility] 10/15/2024 14:26:19 5 Blood Draw/RELAY ASSOCIATE/PSA RESULTS cancelled Elo Bishop [facility] 10/05/2024 11:50:19 5 Urodynamic Studies completed Dwaine Kong MD [address] [place] [address],[address], [place], [address], [facility] 10/11/2024 11:34:02 5 Swenson Catheter Insertion completed Chelsey Munguia [facility] 09/29/2024 15:46:01 5 Cystoscopy- male completed Obey Pedraza MD [address] [place] [address],[address], [place], [address], [facility] 09/09/2024 11:09:52 5 Past Data Reviewed completed Obey Pedraza MD [address] [facility],[address], [place], [address], [facility] 09/09/2024 09:40:02 4 [facility] 10:56:16 Imaging Results None recorded. Procedure Notes None recorded. Medical Equipment None Reported. Allergies Allergen ID Allergen Name Allergen Category Reaction Reaction Severity Criticality Documentation Date Start Date Code Code System Note Provider Name and Address Organization Details Recorded Time 688976 honey bee venom medicatio n Not available Not available Not available 09/01/2024 83693 7 RxNorm Not Available Not Available Not Available 283438 Product containin g penicilli n (product) medicatio n Not available Not available Not available 09/01/2024 54286 8001 SNOMED Not Available Not Available Not [...] Last Updated DateTime 09/29/2024 187.96 cm Chelsey Munguia [facility] 15:18:31 Date Recorded Body height Body mass index (BMI) Body weight Provider Name and Address Organization Details Last Updated DateTime 10/02/2024 187.96 cm 23.1 kg/m2 45462.63 g Eleni Thomas [facility] 10/02/2024 11:35:02 Social History Question Answer Notes LastModified by Organizat ion Details LastModified Time Tobacco Smoking Status Former Smoker Kurt rajan [facility] 09/09/2024 10:55:43 What Is Your Level [...] adjuvanted, trivalent, PF 4 completed Kurt rajan [facility] 09/09/2024 10:52:31 zoster recombinant 3 completed Kurt Meath null, [facility] 09/09/2024 10:52:31 zoster recombinant 3 completed Kurt Meath null, [facility] 09/09/2024 10:52:31 Influenza, high-dose, quadrivalent, PF 1 completed Kurt Meath null, [facility] 09/09/2024 10:52:31 Influenza, high-dose, quadrivalent, PF 0 completed Kurt Meath null, [facility] 09/09/2024 10:52:31 Influenza, adjuvanted, quadrivalent, PF 3 completed Kurt Meath null, [facility] 09/09/2024 10:52:31 Influenza, adjuvanted, quadrivalent, PF 2 completed Kurt Meath null, [facility] 09/09/2024 10:52:31 COVID-19, mRNA, LNP-S, PF, 30 mcg/0.3 mL dose 1 completed Kurt Meath null, [facility] 09/09/2024 10:52:31 COVID-19, mRNA, LNP-S, PF, 30 mcg/0.3 mL dose 1 completed Kurt Meath null, [facility] 09/09/2024 10:52:31 COVID-19, mRNA, LNP-S, PF, 30 mcg/0.3 mL dose 1 completed Kurt Meath null, [facility] 09/09/2024 10:52:31 COVID-19, mRNA, LNP-S, bivalent, PF, 30 mcg/0.3 mL dose 2 completed Kurt Meath null, [facility] 09/09/2024 10:52:31 RSV, recombinant, protein subunit RSVpreF, adjuvant reconstituted, 0.5 mL, PF 4 completed Kurt Meath null, [facility] 09/09/2024 10:52:31 COVID-19, mRNA, LNP-S, PF, 50 mcg/0.5 mL 4 completed Kurt Meath null, [facility] 09/09/2024 10:52:31 COVID-19, mRNA, LNP-S, PF, 50 mcg/0.5 mL 3 completed Kurt Meath null, [facility] 09/09/2024 10:52:31 pneumococcal polysaccharide PPV23 8 completed Kurt Meath null, [facility] 09/09/2024 10:52:31 Tdap 6 completed Kurt Meath null, [facility] 09/09/2024 10:52:31 Pneumococcal conjugate PCV 13 7 completed Kurt Meath null, [facility] 09/09/2024 10:52:31 zoster live 7 completed Kurt Meath null, [facility] 09/09/2024 10:52:31 Influenza, high-dose, trivalent, PF 8 completed Kurt Meath null, [facility] 09/09/2024 10:52:31 Influenza, high-dose, trivalent, PF 7 completed Kurt Meath null, [facility] 09/09/2024 10:52:31 Influenza, high-dose, trivalent, PF 9 completed Kurt Meath null, [facility] 09/09/2024 10:52:31 Td (adult), 2 Lf tetanus toxoid, preservative free, adsorbed 5 completed Kurt Meath null, [facility] 09/09/2024 10:52:31 Hep A, adult 3 completed Kurt Meath null, [facility] 09/09/2024 10:52:31 typhoid, ViCPs 3 completed Kurt Meath null, [facility] 09/09/2024 10:52:31 influenza, seasonal, intradermal, preservative free 2 completed Kurt Meath null, [facility] 09/09/2024 10:52:31 influenza, seasonal, intradermal, preservative free 1 completed Kurt Meath null, [facility] 09/09/2024 10:52:31 Influenza, split virus, quadrivalent, PF 6 completed Kurtpapo Gasparh null, [facility] 09/09/2024 10:52:31 Influenza, split virus, quadrivalent, PF 4 completed Kurtpapo Gasparjeri null, [facility] 09/09/2024 10:52:31 Past Encounters Encounter ID Performer Location Encounter Start Date Encounter Closed Date Diagnosis/Indication Diagnosis SNOMED-CT Code Diagnosis ICD10 Code Diagnosis Note [id number] MD [facility] [address] [address] 09/09/2024 10:45:26 09/09/2024 11:49:30 Lower urinary tract symptoms due to benign prostatic hypertrophy 7375864636 9101 N40.1 Retention of urine 27064 4002 R33.9 Renato hematuria 64410925 5 R31.0 [id number] MD Dinesh [facility] [address] [place] [phone] 09/29/2024 12:37:22 10/12/2024 09:16:29 Lower urinary tract symptoms due to benign prostatic hypertrophy 8435894846 9101 N40.1 Retention of urine 22963 4002 R33.9 Health Concerns Section Related Observation LastModified by Organization Detai ls LastModified Time None Recorded Concern Status LastModified by Organization Details LastModified Time None Recorded Payers Encounter Date Sequence Insurance Name Policy Number Policy Bustamante Covered Member ID Bustamante Member ID Guarantor Name 09/29/2024 1 [place] [employer] Suresh Martinez [id number] Suresh Martinez 09/29/2024 2 [facility] [id number] Suresh Martinez [id number] Suresh Martinez
--- OUTSIDE RECORDS SUMMARY | 2024-10-29 19:26 | XMS_ITS | Clinical Summary ---
Author Organization [facility] Address [address] [place] [address] Care Team Providers Care Snuff Grinder Name Role Phone Santi Juarez MD Primary Care Provider [phone] Allergies Active Allergy Reactions Criticality Noted Date [...] 2 days. 6 Capsule 10/11/19 11:25 AM HEALTHCARE ARCHITECT 025 2024 Active Problems Problem Noted Date [...] Department Care Team Description 10/08/2024 3:37 PM HEALTHCARE ARCHITECT Anesthesia Event [address] [address] Cecilia Patel MD Wagner, Stephen Robert, MD 10/08/2024 3:25 PM HEALTHCARE ARCHITECT - 10/08/2024 5:03 PM HEALTHCARE ARCHITECT Surgery [address] [address] Marcia Epstein MD CYSTOSCOPY, CLOT EVACUATION, FULGURATION 10/06/2024 2:08 PM HEALTHCARE ARCHITECT - 10/10/2024 12:06 PM HEALTHCARE ARCHITECT Hospital Encounter [address] [address] s, U Hospitalist Abhi Álvarez MD Atrial fibrillation, unspecified type (HC) (Primary Dx); Benign prostatic hyperplasia with lower urinary tract symptoms, symptom details unspecified Discharge Disposition: Home Self Care 10/06/2024 Travel 09/24/2024 Transcribe Orders [facility] [address] [place] [address] Doug Dia MD 09/23/2024 Transcribe Orders [facility] [place] [phone] Shaun Baer MD 08/28/2024 3:00 PM HEALTHCARE ARCHITECT Ancillary Procedure [facility] [address] [place] [address] 08/27/2024 Telephone [facility] [address] [place] [address] Harvey Gonzalez MD from Last 3 Months [...] on file Legal Sex Male 7:26 PM HEALTHCARE ARCHITECT Gender Identity Not on file Sexual Orientation Not on file Obstetrics History Last Filed Vital Signs Vital Sign Reading Time Taken Comments Blood Pressure 144/66 10/10/2024 7:21 AM HEALTHCARE ARCHITECT Pulse 58 10/10/2024 7:21 AM HEALTHCARE ARCHITECT Temperature 36.4 C (97.5 F) 10/10/2024 7:21 AM HEALTHCARE ARCHITECT Respiratory Rate 17 10/10/2024 7:21 AM HEALTHCARE ARCHITECT Oxygen Saturation 96% 10/10/2024 7:21 AM HEALTHCARE ARCHITECT Inhaled Oxygen Concentration - - Weight 73.9 kg (163 lb) 10/09/2024 5:08 AM HEALTHCARE ARCHITECT Height 188 cm (6' 2) 10/09/2024 5:08 AM HEALTHCARE ARCHITECT Body Mass Index 20.93 10/09/2024 5:08 AM HEALTHCARE ARCHITECT Plan of Treatment Upcoming Encounters Date Type Department Care Team (Late st Contact Info) Description 11/05/2024 10:30 AM CDT Office Visit [facility] [address] [place] [address] Adrien Suarez MD [address] [facility] [address] [place], [place] [phone] Health Maintenance Due Date Last Done Comments [...] Completed 12/09/2020 Medical Devices Implanted Type Area Marker Machine Device Identifier Shelf Expiration Date Model / Serial / Lot Tissue Pericardium 0.8x8cm Xenosure - [id number] Implanted:Qty: 1 on 01/03/2021 by Warren Peña MD at [facility] Right: Carotid Artery [employer] 08/08/2026 0.8P8 / / [id number] Procedures Procedure Name Priority Date/Time Associated Diagnosis Comments HEMOGLOBIN Early AM 10/10/2024 7:27 AM HEALTHCARE ARCHITECT GLUCOSE METER Timed 10/10/2024 7:23 AM HEALTHCARE ARCHITECT GLUCOSE METER Timed 10/09/2024 9:12 PM HEALTHCARE ARCHITECT GLUCOSE METER Timed 10/09/2024 4:48 PM HEALTHCARE ARCHITECT GLUCOSE METER Timed 10/09/2024 11:35 AM HEALTHCARE ARCHITECT GLUCOSE METER Timed 10/09/2024 6:42 AM HEALTHCARE ARCHITECT HEMOGLOBIN Timed 10/09/2024 6:38 AM HEALTHCARE ARCHITECT GLUCOSE METER Timed 10/08/2024 9:08 PM HEALTHCARE ARCHITECT HEMOGLOBIN Timed 10/08/2024 6:56 PM HEALTHCARE ARCHITECT GLUCOSE METER Timed 10/08/2024 6:40 PM HEALTHCARE ARCHITECT EKG 12 LEAD STAT 10/08/2024 6:34 PM HEALTHCARE ARCHITECT GLUCOSE METER Timed 10/08/2024 5:51 PM HEALTHCARE ARCHITECT GLUCOSE METER Timed 10/08/2024 4:43 PM HEALTHCARE ARCHITECT SUPRAGLOTTIC-LMA Routine 10/08/2024 4:09 PM HEALTHCARE ARCHITECT CYSTOSCOPY EVACUATION BLADDER CLOTS 10/08/2024 3:27 PM HEALTHCARE ARCHITECT Gross hematuria GLUCOSE METER Timed 10/08/2024 3:20 PM HEALTHCARE ARCHITECT GLUCOSE METER Timed 10/08/2024 11:50 AM HEALTHCARE ARCHITECT SCAN CORRESP-LABORATORY RESULTS 10/08/2024 10:55 AM HEALTHCARE ARCHITECT GLUCOSE METER Timed 10/08/2024 6:37 AM HEALTHCARE ARCHITECT HEMOGLOBIN Early AM 10/08/2024 6:04 AM HEALTHCARE ARCHITECT GLUCOSE METER Timed 10/07/2024 11:53 PM HEALTHCARE ARCHITECT GLUCOSE METER Timed 10/07/2024 9:08 PM HEALTHCARE ARCHITECT GLUCOSE METER Timed 10/07/2024 5:14 PM HEALTHCARE ARCHITECT US RENAL AND BLADDER COMPLETE TYLER 10/07/2024 12:04 PM HEALTHCARE ARCHITECT GLUCOSE METER Timed 10/07/2024 11:34 AM HEALTHCARE ARCHITECT GLUCOSE METER Timed 10/07/2024 8:07 AM HEALTHCARE ARCHITECT HEMOGLOBIN Timed 10/07/2024 6:45 AM HEALTHCARE ARCHITECT HEMOGLOBIN Timed 10/06/2024 11:29 PM HEALTHCARE ARCHITECT GLUCOSE METER Timed 10/06/2024 9:13 PM HEALTHCARE ARCHITECT GLUCOSE METER Timed 10/06/2024 5:11 PM HEALTHCARE ARCHITECT TYPE & SCREEN Today 10/06/2024 4:12 PM HEALTHCARE ARCHITECT BASIC METABOLIC PANEL Today 10/06/2024 4:12 PM HEALTHCARE ARCHITECT PLATELET COUNT Today 10/06/2024 4:12 PM HEALTHCARE ARCHITECT HEMOGLOBIN Timed 10/06/2024 4:12 PM HEALTHCARE ARCHITECT HEMOGLOBIN A1C MONITORING (POCT) Today 10/06/2024 4:12 PM HEALTHCARE ARCHITECT SCAN-CARDIAC STRIP 10/06/2024 12 :00 AM HEALTHCARE ARCHITECT ECHO TTE COMPLETE WO CONTRAST Routine 08/28/2024 1:07 PM HEALTHCARE ARCHITECT New onset a-fib (HC) COLONOSCOPY 04/03/2023 9:22 AM CDT US ABD AORTA SCREENING Routine 12/09/2020 9:28 AM CDT HTN (hypertension) from Last 3 Months or Most Recently Relevant to Health Maintenance Results * (ABNORMAL) HEMOGLOBIN (10/10/2024 7:27 AM HEALTHCARE ARCHITECT) Only the most recent of7 resultswithin the time period is included. HEMOGLOBIN 8.3(L) 13.5 - 17.5 g/dL 10/10/2024 7:41 AM HEALTHCARE ARCHITECT [facility] MCV 84 80 - 100 fL 10/10/2024 7:41 AM HEALTHCARE ARCHITECT [facility] Blood BLOOD SPECIMEN / Unknown Venipuncture / Unknown 10/10/2024 7:27 AM HEALTHCARE ARCHITECT 10/10/2024 7:36 AM HEALTHCARE ARCHITECT Abhi Vogel MD HEMATOLOGY Final Re sult Performing Organization Address [facility]/ZIP Co de Phone Number [facility] SENDOUT INTERNAL ZIP [phone] [place] [address] * (ABNORMAL) GLUCOSE METER (10/10/2024 7:23 AM HEALTHCARE ARCHITECT) Only the most recent of19 resultswithin the time period is included. GLUCOSE METER 166(H) 65 - 100 mg/dL 10/10/2024 7:27 AM HEALTHCARE ARCHITECT [facility] Blood BLOOD SPECIMEN / Unknown 10/10/2024 7:23 AM HEALTHCARE ARCHITECT 10/10/2024 7:27 AM HEALTHCARE ARCHITECT Abhi Vogel MD CHEMISTRY Final Re sult Performing Organization Address City/[facility]/ZIP Co de Phone Number [facility] SENDOUT INTERNAL ZIP [phone] [place] [phone] * 12 Lead EKG - PRN (10/08/2024 6:34 PM HEALTHCARE ARCHITECT) Interpretation Normal sinus rhythm Anterior infarct , [...] NOW QTc 410 ms BEYOND NOW P [place] 100 degrees BEYOND NOW R [place] -4 degrees BEYOND NOW T [place] -7 degrees BEYOND NOW 10/08/2024 6:34 PM HEALTHCARE ARCHITECT 10/09/2024 8:13 AM HEALTHCARE ARCHITECT us Abhi Vogel MD EKG ORD Final Re sult BEYOND NOW [place], [place] * HCHG MASK PR5 (10/08/2024 4:09 PM HEALTHCARE ARCHITECT) Narrative Luís Khalil CRNA - 10/08/2024 4:09 PM HEALTHCARE ARCHITECT Luís Khalil CRNA 10/08/2024 4:09 PM Procedure: [...] * SCAN CORRESP-LABORATORY RESULTS (10/08/2024 10:55 AM HEALTHCARE ARCHITECT) Narrative 10/08/2024 10:55 AM HEALTHCARE ARCHITECT Ordered by an unspecified provider. us Other Clinical Staff OTHER Final Resul t * US RENAL AND BLADDER COMPLETE (10/07/2024 12:04 PM HEALTHCARE ARCHITECT) Anatomical Region Laterality Modality Abdomen, AORTA, KIDNEYS Ultrasou nd 10/07/2024 12:0 4 PM HEALTHCARE ARCHITECT Impressions 10/07/2024 12:12 PM HEALTHCARE ARCHITECT 1. Normal kidney ultrasound. 2. Decompressed urinary bladder with Fragoso catheter in place. Narrative 10/07/2024 12:12 PM HEALTHCARE ARCHITECT For Patients: As a result of the Cures Act, medical imaging exams and procedure reports are released immediately into your electronic medical record. You may view this report before your referring provider. If you have questions, please contact your health care provider. EXAM: US RENAL AND BLADDER COMPLETE LOCATION: [facility] DATE: 10/07/2024 INDICATION: Hematuria COMPARISON: [...] EXAM: US RENAL AND BLADDER COMPLETE LOCATION: [facility] DATE: 10/07/2024 INDICATION: Hematuria COMPARISON: None. TECHNIQUE: Routine Bilateral Renal and Bladder Ultrasound. FINDINGS: RIGHT KIDNEY: 11.2 x 4.5 x 5.3 cm. Normal without hydronephrosis ormasses. LEFT KIDNEY: 12.0 x 5.0 x 4.3 cm. Normal without hydronephrosis or masses. BLADDER: Decompressed with urinary catheter in place. IMPRESSION: 1. Normal kidney ultrasound. 2. Decompressed urinary bladder with Fragoso catheter in place. us Bel OLIVEIRA US Final Res ult * TYPE & SCREEN (10/06/2024 4:12 PM HEALTHCARE ARCHITECT) ABORH AB Rh Positive 10/06/2024 5:21 PM HEALTHCARE ARCHITECT [facility] BLOOD BANK ANTIBODY SCREEN Negative Negative 10/06/2024 5:21 PM HEALTHCARE ARCHITECT [facility] BLOOD BANK SPECIMEN EXPIRATION DATE/TIME 10/09/24 23:59 10/06/2024 5:21 PM HEALTHCARE ARCHITECT [facility] BLOOD BANK Blood BLOOD SPECIMEN / Unknown Venipuncture / Unknown 10/06/2024 4:12 PM HEALTHCARE ARCHITECT 10/06/2024 4:27 PM HEALTHCARE ARCHITECT Abhi Vogel MD BLOOD BANK Final Re sult [facility] BLOOD BANK [address] [place] [address] * PLATELET COUNT (10/06/2024 4:12 PM HEALTHCARE ARCHITECT) PLATELET COUNT 224 140 - 440 thou/cu mm 10/06/2024 4:29 PM HEALTHCARE ARCHITECT [facility] MPV 10.0 6.5 - 11.0 fL 10/06/2024 4:29 PM HEALTHCARE ARCHITECT [facility] Blood BLOOD SPECIMEN / Unknown Venipuncture / Unknown 10/06/2024 4:12 PM HEALTHCARE ARCHITECT 10/06/2024 4:27 PM HEALTHCARE ARCHITECT Abhi Vogel MD HEMATOLOGY Final Re sult [facility] SENDOUT INTERNAL ZIP [phone] [place] [address] * Hemoglobin A1C (10/06/2024 4:12 PM HEALTHCARE ARCHITECT) HEMOGLOBIN A1C MONITORING (POCT) 6.3 <=6.4 % 10/06/2024 6:05 PM HEALTHCARE ARCHITECT [facility] Blood BLOOD SPECIMEN / Unknown Venipuncture / Unknown 10/06/2024 4:12 PM HEALTHCARE ARCHITECT 10/06/2024 4:27 PM HEALTHCARE ARCHITECT Narrative [facility] - 10/06/2024 6:05 PM HEALTHCARE ARCHITECT (<=6.9%) Indicates good control (7.0% to 7.9%) Indicates fair control (>=8.0%) Indicates poor control NOTE: These thresholds are guidelines and individual targets may vary. Falsely low levels may be seen with: Recent Transfusion, Recent Significant Blood Loss, Hemolytic Diseases, or Falsely elevated levels may be seen with: Untreated Anemias, Splenectomy us Abhi Vogel MD CHEMISTRY Final Re sult [facility] SENDOUT INTERNAL ZIP [phone] [place] [address] * (ABNORMAL) BASIC METABOLIC PANEL (10/06/2024 4:12 PM HEALTHCARE ARCHITECT) SODIUM 134(L) 136 - 145 mmol/L 10/06/2024 4:49 PM [facility] POTASSIUM 3.9 3.5 - 5.1 mmol/L 10/06/2024 4:49 PM [facility] CHLORIDE 100 98 - 107 mmol/L 10/06/2024 4:49 PM [facility] CO2,TOTAL 24 22 - 29 mmol/L 10/06/2024 4:49 PM [facility] ANION GAP 10 5 - 18 10/06/2024 4:49 PM [facility] GLUCOSE 125(H) 70 - 99 mg/dL 10/06/2024 4:49 PM [facility] CALCIUM 8.8 8.8 - 10.4 mg/dL 10/06/2024 4:49 PM [facility] Comment: Reference ranges for this test were updated on 06/16/2024 to reflect our healthy population more accurately. Reference range changes are not retroactively applied to results, but previous results using the same methodology can be interpreted in the context of the new reference range. BUN 17 8 - 23 mg/dL 10/06/2024 4:49 PM [facility] CREATININE 0.76 0.70 - 1.20 mg/dL 10/06/2024 4:49 PM [facility] BUN/CREAT RATIO 22(H) 10 - 20 4:49 PM [facility] eGFR >90 >90 mL/min/1. 73m2 10/06/2024 4:49 PM [facility] Comment:As of 2021, eG FR is calculated by the CKD-EPI creatinine equation without race adjustment. eGFR can be influenced by muscle mass, exercise, and diet. The reported eGFR is an estimation only and is only applicable if the renal function is stable. Blood BLOOD SPECIMEN / Unknown Venipuncture / Unknown 10/06/2024 4:12 PM HEALTHCARE ARCHITECT 10/06/2024 4:27 PM HEALTHCARE ARCHITECT us Abhi Vogel MD CHEMISTRY Final Re sult [facility] SENDOUT INTERNAL ZIP [phone] [place] [address] * SCAN-CARDIAC STRIP (10/06/2024 12:00 AM HEALTHCARE ARCHITECT) Narrative 10/06/2024 12:00 AM HEALTHCARE ARCHITECT Ordered by an unspecified provider. us Other Clinical Staff OTHER Final Resul t * ECHO TTE COMPLETE WO CONTRAST (08/28/2024 1:07 PM HEALTHCARE ARCHITECT) AORTIC VALVE MEAN PG 5 mmHg EJECTION FRACTION 67 % PEAK TR VELOCITY 2.7 m/s LVEDD 3.8 cm EJECTION FRACTION 60 - 65% Anatomical Region Laterality Modality Ultrasound 08/28/2024 10:4 4 AM HEALTHCARE ARCHITECT Narrative 08/28/2024 1:14 PM HEALTHCARE ARCHITECT ECHOCARDIOGRAM SURESH MOLINA : 1950 74 years Study Date: 08/28/2024 10:44:58 AM Gender: M BP: 179/93 mmHg Height: 188.00 cm BSA: 2.10 m Weight: 84.00 kg Tech: SEN Referring MD: LEOPOLDO MUÑIZ Site: [facility] Reading Location: Mobile- Patient [...] . This study was interpreted by an [facility] accredited facility. CC: [facility] (med records) [facility] Med/Surg - IP [facility]. Final Procedure Note Jony Donato MD - 08/28/2024 ECHOCARDIOGRAM SURESH MOLINA : 1950 74 years Study Date: 08/28/2024 10:44:58 AM Gender: M BP: 179/93 mmHg Height: 188.00 cm BSA: 2.10 m Weight: 84.00 kg Tech: NWA Referring MD: LEOPOLDO MUÑIZ Site: [facility] Reading Location: Mobile- Patient [...] . This study was interpreted by an [facility] accredited facility. CC: [facility] (med records) [facility], Med/Surg - IP [facility]. Final us Leopoldo OLIVEIRA ECHO ORD Final [...] candidate for conscious sedation. The endoscope [id number] was passed through the anus andadvanced to [...] 9:22 AM Procedure Code(s): --- Professional --- 74807, Colonoscopy, flexible; with removalof tumor(s), polyp(s), or other lesion(s) bysnare technique Diagnosis Code(s): --- Professional --- Z86.010, Personal history of colonicpolyps D12.2, Benign neoplasm of ascending colon K57.30, Diverticulosis of large intestine without perforation or abscess withoutbleeding CPT copyright 2021 [employer]. All rights reserved. The codes documented in this report are preliminary and upon machine carton marker reviewmay be revised to meet current compliance [...] Gender: M Referring MD: WARREN PEÑA Site: [facility] Study performed: Iliac, (bilateral) [...] study was performed and interpreted by [facility], a service accredited by the [employer] Accreditation Commission (IAC/Vascular), www.intersocietal.org/vascular Report generated by [employer]. Final Procedure Note Valdemar Sandoval MD - 12/10/2020 VASCULAR ULTRASOUND REPORT SURESH H BROSKE : 1950 Study Date: 12/09/2020 9:05:56 AM Age: 70 years Tech: Elo Juarez Gender: M Referring MD: WARREN PEÑA Site: [facility] Study performed: Iliac, (bilateral) [...] This study was performed and interpreted by [facility], a service accredited by the Intersocietal Accreditation Commission (IAC/Vascular),www.intersocietal.org/vascular Report generated by [employer]. Final Warren Peña MD Fi nal Result from Last 3 Months or Most Recently Relevant to Health Maintenance Insurance PREFERRED [facility] MEDICARE PART B HB ONLY [facility] MEDICARE PB ONLY MEDICARE PART A HB ONLY Advance Directives * Full Code (Latest Code Status on File) Date Activated Date Inactivated Comments 10/06/2024 2:51 PM 10/10/2024 2:11 PM Question Answer Comments Code Status Discussion: Reviewed Preferences * Full Code Date Activated Date Inactivated Comments 01/03/2021 6:00 AM 01/04/2021 1:54 PM Question Answer Comments Code Status Discussion: Not Discussed Care Teams Snuff Grinder Relationship Specialty Start Date End Date Santi Juarez MD [address] [place] [phone] PCP - General Family Practice 12/07/20
--- OUTSIDE RECORDS SUMMARY | 2024-10-29 19:26 | XMS_ITS | Data Portability ---
Author Organization MD - [facility], [facility] Address [address] [facility] [address] [place] [address] Care Team Providers Care Chrome Cleaner Name Role Phone DOMI SHEA Primary Care Provider [phone] Assessment Encounter Date Assessment Date Assessment LastModified [...] dipstick - Per UTI protocol 2024 025 [facility], [address], [address], [place], [address], 10/02/2024 11:59:38 urinalysi s, microscop ic [address] [facility], [address], [address], [place], [address], 10/02/2024 11:46:20 culture, urine 2024 025 [facility], [address], [address], [place], [address], 10/04/2024 12:02:22 Referral None recorded. Procedures urodynami c testing, complex (PROC) 2024 025 [email or web address] Not available 09/20/2024 18:38:38 Surgeries laser enucleati on of prostate with morcellat ion (SURG) 2024 025 [email or web address] Not available 10/16/2024 10:36:[address], urogram 2024 025 [facility], [address] [place], [address], 09/23/2024 21:57:47 Medication Orders Macrobid 100 mg capsule [address] [facility], [address] [place] [address], [address], 10/02/2024 11:35:40 Patient TargetsNo targets recorded. Patient Instructions Encounter Date Encounter Id Patient Instructions Last Modified By Organization Details Last Modified Time 09/09/2024 [id number] urodynamic studi es: about these tests Not [...] prostate cancer. Not available 09/09/2024 11:12:41 09/29/2024 [id number] Impression: 1) Smaller capacity, normal compliant bladder with repeated detrusor instability and incontinence 2) No volitional voiding on pressure/flow. MInimal void on non-invasive testing, with elevated residual. 3) The most probable diagnosis is bladder outlet obstruction, as he does not have myogenic failure. [email or web address] Not available 10/11/2024 11:34:10 10/15/2024 [id number] Benign prostatic hyperplasia with lower urinary tract [...] [hpf] 0 - 2 abnormal Not Available [facility] [address] [facility] [address], [place], [address], 10/02/2024 11:59:38 10/02/19 25 10/02/2024 UA MICRO SCOPI C (ABNO RMAL COLOR ) U-RBC PACKED [hpf] 0 - 2 abnormal Not Available [facility] [address] [facility] [address], [place], [address], 10/02/2024 11:59:38 10/02/19 25 10/02/2024 UA MICRO SCOPI C (ABNO RMAL COLOR ) bacteria MANY [hpf] none;r are abnormal Not Available [facility] [address] [facility] [address], [place], [address], 10/02/2024 11:59:38 10/02/19 25 10/02/2024 UA MICRO [...] menda tions based on the resul t. Luis Carlos zacarias allow up to one week for provi katy revie w. Not Available [facility] [address] [facility] [address], [place], [address], 10/02/2024 11:59:38 10/02/19 25 10/02/2024 UA MICRO SCOPI C (ABNO RMAL COLOR ) sperm PRESEN T /hpf none-s een abnormal Not Available [facility] [address] [facility] [address], [place], [address], 10/02/2024 11:59:38 10/02/19 25 10/02/2024 URINE CULTU [...] ate 1) Sensi tivit y Ronel sis Eden te 1 ----- ----- ----- ----- ----- [...] s Desk Refer ence or from the [facility] actur er. S= Susce ptibl e;I= [...] for provi katy revie w. Not Available [facility] [address], [place], [address], 10/04/2024 12:02:22 09/23/19 25 09/23/2024 CT, urogr am No observ ation record ed. [email or web address] [facility] [address], [place], [address], 10/13/2024 08:55:07 Result Notes None recorded. Problems Name Problem SNOMED Code Status Onset Date Resolution Date Notes Provider Name and Address Organization Details Recorded Time Retention of urine 443598547 Active 2024 RIAZ Jc - [facility] 12:52:01 Type 2 diabetes mellitus 42062446 Active 2024 Kurt Gasparjeri null, [facility] 5 12:52:35 Hypertensiv e disorder 05220467 Active 2024 Kurt Owens null, [facility] 5 12:52:38 Lower urinary tract symptoms due to benign prostatic hypertrophy 5558159244653 1 Active 2024 Kurt Gaspar null, [facility] 5 10:56:02 Problem Notes None recorded. Procedures Surgical History Date Name Laterality Status Provider Name and Address Organization Details Recorded Time 5 SWENSON CHANGE completed Claudia Rossi [facility] 10/29/2024 16:42:14 5 COMPLEX VISIT completed Obey Pedraza MD [address] [place] [address],[address], [place], [address], [facility] 10/15/2024 14:26:19 5 Blood Draw/CATERPILLAR OPERATOR/PSA RESULTS cancelled Elo Bishop [facility] 10/05/2024 11:50:19 5 Urodynamic Studies completed Dwaine Kong MD [address] [place] [address],[address], [place], [address], [facility] 10/11/2024 11:34:02 5 Swenson Catheter Insertion completed Chelsey Munguia [facility] 09/29/2024 15:46:01 5 Cystoscopy- male completed Obey Pedraza MD [address] [place] [address],[address], [address], [facility] 09/09/2024 11:09:52 5 Past Data Reviewed completed Obey Pedraza MD [address] [place] [address],[address], [place], [address], [facility] 09/09/2024 09:40:02 4 Colonoscopy completed Kurt Owens [facility] 09/09/2024 10:56:16 Imaging Results Imaging Date Name Status LastModified by Organiz ation Details LastModified Time 09/23/2024 CT, urogram completed [email or web address] [place] [address] [address] [place], [address], 10/13/2024 08:55:07 Procedure Notes None recorded. Medical Equipment None Reported. Allergies Allergen ID Allergen Name Allergen Category Reaction Reaction Severity Criticality Documentation Date Start Date Code Code System Note Provider Name and Address Organization Details Recorded Time 555668 honey bee venom medicatio n Not available Not available Not available 09/01/2024 18423 7 RxNorm Not Available Not Available Not Available 307757 Product containin g penicilli n (product) medicatio n Not available Not available Not available 09/01/2024 50029 8001 SNOMED Not Available Not Available Not [...] Updated DateTime 09/09/2024 187.96 cm 23.1 kg/m2 09065.63 g Kurt Meath [place] [facility] 09/09/2024 10:55:12 Date Recorded Body height Provider Name an d Address Organization Details Last Updated DateTime 09/29/2024 187.96 cm Chelsey Munguia [facility] 15:18:31 Date Recorded Body height Body mass index (BMI) Body weight Provider Name and Address Organization Details Last Updated DateTime 10/02/2024 187.96 cm 23.1 kg/m2 39863.63 g Eleni Thomas [facility] 10/02/2024 11:35:02 Date Recorded Body height Provider Name an d Address Organization Details Last Updated DateTime 10/15/2024 187.96 cm Kurt Owens [facility] 13:52:17 Date Recorded Body height Provider Name an d Address Organization Details Last Updated DateTime 10/29/2024 187.96 cm Claudia Enid [facility] 10/29/2024 16:34:46 Social History Question Answer Notes LastModified by Organizat ion Details LastModified Time Tobacco Smoking Status Former [facility] 10:55:43 What Is Your Level Of [...] trivalent, PF 4 completed Kurt Meath null, [facility] 09/09/2024 10:52:31 zoster recombinant 3 completed Kurt Meath null, [facility] 09/09/2024 10:52:31 zoster recombinant 3 completed Kurt Meath null, [facility] 09/09/2024 10:52:31 Influenza, high-dose, quadrivalent, PF 1 completed Krut Meath null, [facility] 09/09/2024 10:52:31 Influenza, high-dose, quadrivalent, PF 0 completed Kurt Meath null, [facility] 09/09/2024 10:52:31 Influenza, adjuvanted, quadrivalent, PF 3 completed Kurt Meath null, [facility] 09/09/2024 10:52:31 Influenza, adjuvanted, quadrivalent, PF 2 completed Kurt Meath null, [facility] 09/09/2024 10:52:31 COVID-19, mRNA, LNP-S, PF, 30 mcg/0.3 mL dose 1 completed Kurt Meath null, [facility] 09/09/2024 10:52:31 COVID-19, mRNA, LNP-S, PF, 30 mcg/0.3 mL dose 1 completed Kurt Meath null, [facility] 09/09/2024 10:52:31 COVID-19, mRNA, LNP-S, PF, 30 mcg/0.3 mL dose 1 completed Kurt Meath null, [facility] 09/09/2024 10:52:31 COVID-19, mRNA, LNP-S, bivalent, PF, 30 mcg/0.3 mL dose 2 completed Kurt Meath null, [facility] 09/09/2024 10:52:31 RSV, recombinant, protein subunit RSVpreF, adjuvant reconstituted, 0.5 mL, PF 4 completed [facility]ath null, [facility] 09/09/2024 10:52:31 COVID-19, mRNA, LNP-S, PF, 50 mcg/0.5 mL 4 completed Kurt Meath null, [facility] 09/09/2024 10:52:31 COVID-19, mRNA, LNP-S, PF, 50 mcg/0.5 mL 3 completed Kurt Meath null, [facility] 09/09/2024 10:52:31 pneumococcal polysaccharide PPV23 8 completed Kurt Meath null, [facility] 09/09/2024 10:52:31 Tdap 6 completed Kurt Meath null, [facility] 09/09/2024 10:52:31 Pneumococcal conjugate PCV 13 7 completed Kurt Meath null, [facility] 09/09/2024 10:52:31 zoster live 7 completed Kurt Meath null, [facility] 09/09/2024 10:52:31 Influenza, high-dose, trivalent, PF 8 completed Kurt Meath null, [facility] 09/09/2024 10:52:31 Influenza, high-dose, trivalent, PF 7 completed Kurt Meath null, [facility] 09/09/2024 10:52:31 Influenza, high-dose, trivalent, PF 9 completed Kurt Meath null, [facility] 09/09/2024 10:52:31 Td (adult), 2 Lf tetanus toxoid, preservative free, adsorbed 5 completed Kurt Meath null, [facility] 09/09/2024 10:52:31 Hep A, adult 3 completed Kurt Meath null, [facility] 09/09/2024 10:52:31 typhoid, ViCPs 3 completed Kurt Meath null, [facility] 09/09/2024 10:52:31 influenza, seasonal, intradermal, preservative free 2 completed Kurt Meath null, [facility] 09/09/2024 10:52:31 influenza, seasonal, intradermal, preservative free 1 completed Kurt Meath null, [facility] 09/09/2024 10:52:31 Influenza, split virus, quadrivalent, PF 6 completed Kutr Meath null, [facility] 09/09/2024 10:52:31 Influenza, split virus, quadrivalent, PF 4 completed Kurt Meath null, [facility] 09/09/2024 10:52:31 Past Encounters Encounter ID Performer Location Encounter Start Date Encounter Closed Date Diagnosis/Indication Diagnosis SNOMED-CT Code Diagnosis ICD10 Code Diagnosis Note [id number] MD Dinesh FishWodionne german[address] [address] 09/09/2024 10:45:26 09/09/2024 11:49:30 Lower urinary tract symptoms due to benign prostatic hypertrophy 9804650779 9101 N40.1 Retention of urine 27370 4002 R33.9 Renato hematuria 57363121 5 R31.0 [id number] MD Geovanni Manriquez [address] [place] [address] 09/29/2024 12:37:22 10/12/2024 09:16:29 Lower urinary tract symptoms due to benign prostatic hypertrophy 2637684249 9101 N40.1 Retention of urine 09333 4002 R33.9 [id number] Eleni [facility] [address] [place] [address] 10/02/2024 11:30:07 10/07/2024 04:01:24 Urinary tract infectious disease 80345437 N39.0 Per UTI/montessori teacher protocol. UA/UC today. [id number] MD Geovanni Fish [address] [place] [address] 10/15/2024 13:50:10 10/19/2024 09:45:18 Retention of urine 234678057 R33.9 Lower urin winsome tract symptoms due to benign prostatic hypertrophy 9517240481 9101 N40.1 Renato hematuria 32207605 5 R31.0 [id number] Claudia [facility] [address] [facility] [address] [place] [address] 10/29/2024 14:34:46 10/29/2024 16:55:37 Retention of urine 100220142 R33.9 Health Concerns Section Related Observation LastModified by Organization Detai ls LastModified Time None Recorded Concern Status LastModified by Organization Details LastModified Time None Recorded Advance Directives Directive None Recorded Payers Encounter Date Sequence Insurance Name Policy Number Policy Bustamante Covered Member ID Bustamante Member ID Guarantor Name 09/09/2024 1 [place] [employer] Suresh H Broske [id number] Suresh H Broske 09/09/2024 2 [place] [id number] Suresh H Broske [id number] Suresh H Broske 09/29/2024 1 [place] [employer] Suresh H Broske [id number] Suresh H Broske 09/29/2024 2 [place] [id number] Suresh H Broske [id number] Suresh H Broske 10/02/2024 1 [place] [employer] Suresh H Broske [id number] Suresh H Broske 10/02/2024 2 [place] [id number] Suresh H Broske [id number] Suresh H Broske 10/15/2024 1 [place] [employer] Suresh H Broske [id number] Suresh H Broske 10/15/2024 2 [place] [id number] Suresh H Broske [id number] Suresh Martinez 10/29/2024 1 [place] [facility] [employer] [facility] Suresh Martinez [id number] Suresh Martinez 10/29/2024 2 [facility] [id number] Suresh Martinez [id number] Suresh Martinez Notes Date Note Type Note [...] developed gross hematuria and was admitted at [facility] for continuous bladder irrigation.He still has his Swenson indwelling. Obey Pedraza MD [address] [place] [address],[address], [place], [address], [facility] 09/09/2024 11:13:03 10/15/2024 text/html This is [...] developed gross hematuria and was admitted at [facility] for continuous bladder irrigation.He has failed attempted [...] evidence of outlet obstruction.He was admitted at [facility] from 10/06/2024 - 10/10/2024 with gross hematuria and clot urinary retention.He required cystoscopy, clot evacuation, and fulguration of bleeding 10/08/2024.He is here today to discuss next steps in management. Obey Pedraza MD [address] [place] [address],[address], [place], [address], [facility] 10/15/2024 14:28:58
--- OUTSIDE RECORDS SUMMARY | 2024-10-29 19:26 | XMS_ITS | Continuity of Care Document ---
[facility] Organization [facility] Address [address] [place] [address] Care Team Providers Care Order Entry Administrator Name Role Phone SHEA DURON Primary Care Provider [phone] Assessment No assessment recorded. Plan of Treatment [...] instructions recorded. Reason for Referral None Reported. Problems Name Problem SNOMED Code Status Onset Date Resolution Date Notes Provider Name and Address Organization Details Recorded Time Retention of urine 069816431 Active [address] [facility] 5 12:52:01 Type 2 diabetes mellitus 64587901 Active [address] [facility] 12:52:35 Hypertensiv e disorder 50890616 Active [address] [facility] 5 12:52:38 Lower urinary tract symptoms due to benign prostatic hypertrophy 1231199685665 1 Active 2024 Kurt rajan, [facility] 5 10:56:02 Problem Notes None recorded. Procedures Surgical History Date Name Laterality Status Provider Name and Address Organization Details Recorded Time 5 SWENSON CHANGE completed Claudialiliya Kellygenevieve [facility] 10/29/2024 16:42:14 5 COMPLEX VISIT completed Obey Pedraza MD [address] [place] [address],[address], [address], [facility] 10/15/2024 14:26:19 5 Blood Draw/AUTOMOTIVE ALIGNMENT SPECIALIST/PSA RESULTS cancelled Elo Bishop [facility] 10/05/2024 11:50:19 5 Urodynamic Studies completed Dwaine Kong MD [address] [place] [address],[address], [address], [facility] 10/11/2024 11:34:02 5 Swenson Catheter Insertion completed Chelsey Munguia [facility] 09/29/2024 15:46:01 5 Cystoscopy- male completed Obey Pedraza MD [address] [place] [address],[address], [address], [facility] 09/09/2024 11:09:52 5 Past Data Reviewed completed Obey Pedraza MD [address] [place] [address], [address], [facility] 09/09/2024 09:40:02 4 Colonoscopy completed Kurt Owens [facility] 09/09/2024 10:56:16 Imaging Results None recorded. Procedure Notes None recorded. Medical Equipment None Reported. Allergies Allergen ID Allergen Name Allergen Category Reaction Reaction Severity Criticality Documentation Date Start Date Code Code System Note Provider Name and Address Organization Details Recorded Time 698094 honey bee venom medicatio n Not available Not available Not available 09/01/2024 23722 7 RxNorm Not Available Not Available Not Available 573103 Product containin g penicilli n (product) medicatio n Not available Not available Not available 09/01/2024 27017 8001 SNOMED Not Available Not Available Not [...] Last Updated DateTime 10/29/[address] [facility] 10/29/2024 16:34:46 Social History Question Answer Notes LastModified by Organizat ion Details LastModified Time Tobacco Smoking Status Former Smoker Kurt Owens satinder, [facility] 09/09/2024 10:55:43 What Is Your [...] trivalent, PF 4 completed Kurt Meath null, [facility] 09/09/2024 10:52:31 zoster recombinant 3 completed Kurt Meath null, [facility] 09/09/2024 10:52:31 zoster recombinant 3 completed Kurt Meath null, [facility] 09/09/2024 10:52:31 Influenza, high-dose, quadrivalent, PF 1 completed Kurt Meath null, [facility] 09/09/2024 10:52:31 Influenza, high-dose, quadrivalent, PF 0 completed Kurt Meath null, [facility] 09/09/2024 10:52:31 Influenza, adjuvanted, quadrivalent, PF 3 completed [facility] null, [facility] 09/09/2024 10:52:31 Influenza, adjuvanted, quadrivalent, PF 2 completed Kurt Meath null, [facility] 09/09/2024 10:52:31 COVID-19, mRNA, LNP-S, PF, 30 mcg/0.3 mL dose 1 completed Kurt Meath null, [facility] 09/09/2024 10:52:31 COVID-19, mRNA, LNP-S, PF, 30 mcg/0.3 mL dose 1 completed Kurt Meath null, [facility] 09/09/2024 10:52:31 COVID-19, mRNA, LNP-S, PF, 30 mcg/0.3 mL dose 1 completed Kurt Meath null, [facility] 09/09/2024 10:52:31 COVID-19, mRNA, LNP-S, bivalent, PF, 30 mcg/0.3 mL dose 2 completed Kurt Meath null, [facility] 09/09/2024 10:52:31 RSV, recombinant, protein subunit RSVpreF, adjuvant reconstituted, 0.5 mL, PF 4 completed Kurt Meath null, [facility] 09/09/2024 10:52:31 COVID-19, mRNA, LNP-S, PF, 50 mcg/0.5 mL 4 completed Kurt Meath null, [facility] 09/09/2024 10:52:31 COVID-19, mRNA, LNP-S, PF, 50 mcg/0.5 mL 3 completed Kurt Meath null, [facility] 09/09/2024 10:52:31 pneumococcal polysaccharide PPV23 8 completed Kurt Meath null, [facility] 09/09/2024 10:52:31 Tdap 6 completed Kurt Meath null, [facility] 09/09/2024 10:52:31 Pneumococcal conjugate PCV 13 7 completed Kurt Meath null, [facility] 09/09/2024 10:52:31 zoster live 7 completed Kurt Meath null, [facility] 09/09/2024 10:52:31 Influenza, high-dose, trivalent, PF 8 completed Kurt Meath null, [facility] 09/09/2024 10:52:31 Influenza, high-dose, trivalent, PF 7 completed Kurt Meath null, [facility] 09/09/2024 10:52:31 Influenza, high-dose, trivalent, PF 9 completed Kurt Meath null, [facility] 09/09/2024 10:52:31 Td (adult), 2 Lf tetanus toxoid, preservative free, adsorbed 5 completed Kurt Meath null, [facility] 09/09/2024 10:52:31 Hep A, adult 3 completed Kurt Meath null, [facility] 09/09/2024 10:52:31 typhoid, ViCPs 3 completed Kurt Meath null, [facility] 09/09/2024 10:52:31 influenza, seasonal, intradermal, preservative free 2 completed Kurt Meath null, [facility] 09/09/2024 10:52:31 influenza, seasonal, intradermal, preservative free 1 completed Kurt Meath null, [facility] 09/09/2024 10:52:31 Influenza, split virus, quadrivalent, PF 6 completed Kurt Meath null, [facility] 09/09/2024 10:52:31 Influenza, split virus, quadrivalent, PF 4 completed Kurt Meath null, [facility] 09/09/2024 10:52:31 Past Encounters Encounter ID Performer Location Encounter Start Date Encounter Closed Date Diagnosis/Indication Diagnosis SNOMED-CT Code Diagnosis ICD10 Code Diagnosis Note [id number] Eleni Jenkins [facility] [address] [place] [address] 10/02/2024 11:30:07 10/07/2024 04:01:24 Urinary tract infectious disease 54693191 N39.0 Per UTI/washer meat protocol. UA/UC today. [id number] Obey Pedraza MD [facility] [address] [place] [address] 10/15/2024 13:50:10 10/19/2024 09:45:18 Retention of urine 911095664 R33.9 Lower urin winsome tract symptoms due to benign prostatic hypertrophy 5389386549 9101 N40.1 Renato hematuria 39419041 5 R31.0 [id number] Claudia Galarza dbury [address] [facility] [place] [address] 10/29/2024 14:34:46 10/29/2024 16:55:37 Retention of urine 179743019 R33.9 Health Concerns Section Related Observation LastModified by Organization Detai ls LastModified Time None Recorded Concern Status LastModified by Organization Details LastModified Time None Recorded Payers Encounter Date Sequence Insurance Name Policy Number Policy Bustamante Covered Member ID Bustamante Member ID Guarantor Name 10/29/2024 1 [place] [employer] Suresh Martinez [id number] Suresh Martinez 10/29/2024 2 [facility] [id number] Suresh Martinez [id number] Suresh Martinez
== END 2024-10-29 20:07 | disposition home or self-care (01) ==
PROVIDERS: Emergency Provider Emergency Medicine Emergency Medical Services; PCP Family Medicine
DX: T83.098A Other mechanical complication of other urinary catheter, initial encounter (principal)
CPT/HCPCS: 99283; 99284

== ENCOUNTER 2024-11-16 09:15 | Emergency (ER) | payer MEDICARE, BC, SELFPAY ==
--- OUTSIDE RECORDS SUMMARY | 2024-11-16 09:17 | XMS_ITS | Clinical Summary ---
Author Organization [facility] Address [address] [facility] [place] [address] Care Team Providers Care Siding Coreboard Inspector Name Role Phone Guero Hutchinson MD Primary [...] on file Legal Sex Male 3:05 AM HOISTER Gender Identity Not on file Sexual Orientation Not on file Last Filed Vital Signs Vital Sign Reading Time Taken Comments Blood Pressure 122/78 09/10/2017 9:11 AM HOISTER Pulse 70 09/10/2017 9:11 AM HOISTER Temperature 36.7 C (98 F) 03/26/2013 9:28 AM CDT Respiratory Rate 18 03/26/2013 9:28 AM CDT Oxygen Saturation 98% 03/26/2013 9:28 AM CDT Inhaled Oxygen Concentration - - Weight 106.6 kg (235 lb) 09/10/2017 9:11 AM HOISTER Height 188 cm (6' 2) 09/10/2017 9:11 AM HOISTER Body Mass Index 30.17 09/10/2017 9:11 AM HOISTER Plan of Treatment Not on file Insurance MEDICARE Care Teams Siding Coreboard Inspector Relationship Specialty Start Date End Date Guero Hutchinson MD [address] [place] [address] RIAZ LIRA [address] PCP - General Urology 11/14/15
--- OUTSIDE RECORDS SUMMARY | 2024-11-16 09:17 | XMS_ITS | Continuity of Care Document ---
Author Organization [facility] Address [address] [place] [address] Care Team Providers Care Body Make Up Artist Name Role Phone ALEKSANDRASHEA Marcial Primary Care [...] Last Modified Time Details Appointments LAB CATH CHANGE 2024 02:00P M CLINICAL_ [...] By Organization Details Last Modified Time 10/15/2024 [id number] Benign prostatic hyperplasia with lower urinary tract [...] observ ation record ed. [email or web address] [facility] [address], [place], [address], 10/13/2024 08:55:07 Result Notes None recorded. Problems Name Problem SNOMED Code Status Onset Date Resolution Date Notes Provider Name and Address Organization Details Recorded Time Retention of urine 352281068 Active 2024 Kurt Gaspar satinder, [facility] 5 12:52:01 Type 2 diabetes mellitus 75554206 Active 2024 Kurt Hubert satinder, [facility] 5 12:52:35 Hypertensiv e disorder 54380164 Active 2024 Kurtpapo Gaspar satinder, [facility] 5 12:52:38 Lower urinary tract symptoms due to benign prostatic hypertrophy 9007327728860 1 Active 2024 Kurtpapo Gaspar satinder, [facility] 5 10:56:02 Problem Notes None recorded. 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 RESULTS cancelled Elo Bishop [facility] 10/05/2024 11:50:19 5 Urodynamic Studies completed Dwaine Kong MD [address] [place] [address],[address], [place], [address], [facility] 10/11/2024 11:34:02 5 Swenson Catheter Insertion completed Chelsey Most [facility] 09/29/2024 15:46:01 5 Cystoscopy- male completed Obey Pedraza MD [address] [place] [address],[facility] [address], [place], [address], [facility] 09/09/2024 11:09:52 5 Past Data Reviewed completed Obey Pedraza MD [address] [place] [address],[facility] [address], [place], [address], [facility] 09/09/2024 09:40:02 4 Colonoscopy completed Kurt Owens [facility] 09/09/2024 10:56:16 Imaging Results None recorded. Procedure Notes None recorded. Medical Equipment None Reported. Allergies Allergen ID Allergen Name Allergen Category Reaction Reaction Severity Criticality Documentation Date Start Date Code Code System Note Provider Name and Address Organization Details Recorded Time 146451 honey bee venom medicatio n Not available Not available Not available 09/01/2024 96129 7 RxNorm Not Available Not Available Not Available 765404 Product containin g penicilli n (product) medicatio n Not available Not available Not available 09/01/2024 86004 8001 SNOMED Not Available Not Available Not [...] Updated DateTime 10/15/2024 187.96 cm Kurt Owens [facility] 13:52:17 Social History Question Answer Notes LastModified by Organizat ion Details LastModified Time Tobacco Smoking Status Former Smoker Kurt Owens null, [facility] 09/09/2024 10:55:43 What Is [...] trivalent, PF 4 completed Kurt Meath null, [facility] 09/09/2024 10:52:31 zoster recombinant 3 completed Kurt Meath null, [facility] 09/09/2024 10:52:31 zoster recombinant 3 completed Kurt Meath null, [facility] 09/09/2024 10:52:31 Influenza, high-dose, quadrivalent, PF 1 completed Kurt Meath null, [facility] 09/09/2024 10:52:31 Influenza, high-dose, quadrivalent, PF 0 completed Kurt Meath null, [facility] 09/09/2024 10:52:31 Influenza, adjuvanted, quadrivalent, PF 3 completed Kurt Meath null, [facility] 09/09/2024 10:52:31 Influenza, adjuvanted, quadrivalent, PF 2 completed Kurt Meath null, [facility] 09/09/2024 10:52:31 COVID-19, mRNA, LNP-S, PF, 30 mcg/0.3 mL dose 1 completed Kurt Meath null, [facility] 09/09/2024 10:52:31 COVID-19, mRNA, LNP-S, PF, 30 mcg/0.3 mL dose 1 completed Kurt Meath null, [facility] 09/09/2024 10:52:31 COVID-19, mRNA, LNP-S, PF, 30 mcg/0.3 mL dose 1 completed Kurt Meath null, [facility] 09/09/2024 10:52:31 COVID-19, mRNA, LNP-S, bivalent, PF, 30 mcg/0.3 mL dose 2 completed Kurt Meath null, [facility] 09/09/2024 10:52:31 RSV, recombinant, protein subunit RSVpreF, adjuvant reconstituted, 0.5 mL, PF 4 completed Kurt Meath null, [facility] 09/09/2024 10:52:31 COVID-19, mRNA, LNP-S, PF, 50 mcg/0.5 mL 4 completed Kurt Meath null, [facility] 09/09/2024 10:52:31 COVID-19, mRNA, LNP-S, PF, 50 mcg/0.5 mL 3 completed Kurt Meath null, [facility] 09/09/2024 10:52:31 pneumococcal polysaccharide PPV23 8 completed Kurt Meath null, [facility] 09/09/2024 10:52:31 Tdap 6 completed Kurt Meath null, [facility] 09/09/2024 10:52:31 Pneumococcal conjugate PCV 13 7 completed Kurt Meath null, [facility] 09/09/2024 10:52:31 zoster live 7 completed Kurt Meath null, [facility] 09/09/2024 10:52:31 Influenza, high-dose, trivalent, PF 8 completed Kurt Meath null, [facility] 09/09/2024 10:52:31 Influenza, high-dose, trivalent, PF 7 completed Kurt Meath null, [facility] 09/09/2024 10:52:31 Influenza, high-dose, trivalent, PF 9 completed Kurt Meath null, [facility] 09/09/2024 10:52:31 Td (adult), 2 Lf tetanus toxoid, preservative free, adsorbed 5 completed Kurt Meath null, [facility] 09/09/2024 10:52:31 Hep A, adult 3 completed Kurt Meath null, [facility] 09/09/2024 10:52:31 typhoid, ViCPs 3 completed Kurt Meath null, [facility] 09/09/2024 10:52:31 influenza, seasonal, intradermal, preservative free 2 completed Kurt Meath null, [facility] 09/09/2024 10:52:31 influenza, seasonal, intradermal, preservative free 1 completed Kurt Meath null, [facility] 09/09/2024 10:52:31 Influenza, split virus, quadrivalent, PF 6 completed Kurt Meath null, [facility] 09/09/2024 10:52:31 Influenza, split virus, quadrivalent, PF 4 completed Kurt Meath null, [facility] 09/09/2024 10:52:31 Past Encounters Encounter ID Performer Location Encounter Start Date Encounter Closed Date Diagnosis/Indication Diagnosis SNOMED-CT Code Diagnosis ICD10 Code Diagnosis Note [id number] MD Dinesh Man[facility] [address] [place] [phone] 09/29/2024 12:37:22 10/12/2024 09:16:29 Lower urinary tract symptoms due to benign prostatic hypertrophy 4908359013 9101 N40.1 Retention of urine 93468 4002 R33.9 [id number] [facility] [address] [place] [phone] 10/02/2024 11:30:07 10/07/2024 04:01:24 Urinary tract infectious disease 23648149 N39.0 Per UTI/host protocol. UA/UC today. [id number] MD Dinesh Fish[facility] [address] [place] [phone] 10/15/2024 13:50:10 10/19/2024 09:45:18 Retention of urine 817406417 R33.9 Lower urin winsome tract symptoms due to benign prostatic hypertrophy 1892245072 9101 N40.1 Renato hematuria 18399058 5 R31.0 Health Concerns Section Related Observation LastModified by Organization Detai ls LastModified Time None Recorded Concern Status LastModified by Organization Details LastModified Time None Recorded Payers Encounter Date Sequence Insurance Name Policy Number Policy Bustamante Covered Member ID Bustamante Member ID Guarantor Name 10/15/2024 1 [place] [employer] Suresh Martinez [id number] Suresh Martinez 10/15/2024 2 [facility] [id number] Suresh Martinez [id number] Suresh Martinez Notes Date Note Type Note [...] evidence of outlet obstruction.He was admitted at [facility] from 10/06/2024 - 10/10/2024 with gross hematuria and clot urinary retention.He required cystoscopy, clot evacuation, and fulguration of bleeding 10/08/2024.He is here today to discuss next steps in management. Obey Pedraza MD [address] [place] [address],[address], [place], [address], [facility] 10/15/2024 14:28:58
--- OUTSIDE RECORDS SUMMARY | 2024-11-16 09:18 | XMS_ITS | Continuity of Care Document ---
Author Organization [facility] Address [address] [place] [address] Care Team Providers Care Corporate Tax Preparer Name Role Phone SHEA DURON Primary Care [...] Organization Details Recorded Time Retention of urine 746090073 Active 2024 Kurt rajan [facility] 5 12:52:01 Type 2 diabetes mellitus 06512369 Active 2024 Kurt rajan [facility] 5 12:52:35 Hypertensiv e disorder 50235463 Active 2024 Kurt rajan [facility] 5 12:52:38 Lower urinary tract symptoms due to benign prostatic hypertrophy 1993893330335 1 Active 2024 Kurt rajan [facility] 5 10:56:02 Problem Notes None recorded. 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/PSA RESULTS cancelled Elo Bishop [facility] 10/05/2024 11:50:19 5 Urodynamic Studies completed Dwaine Kong MD [address] [place] [address],[address], [address], [facility] 10/11/2024 11:34:02 5 Swenson Catheter Insertion completed Chelsey Munguia [facility] 09/29/2024 15:46:01 5 Cystoscopy- male completed Obey Pedraza MD [address] [place] [address],[address], [place], [address], [facility] 09/09/2024 11:09:52 5 Past Data Reviewed completed Obey Pedraza MD [address] [place] [address],[address], [place], [address], [facility] 09/09/2024 09:40:02 4 Colonoscopy completed Kurt Owens [facility] 09/09/2024 10:56:16 Imaging Results None recorded. Procedure Notes None recorded. Medical Equipment None Reported. Allergies Allergen ID Allergen Name Allergen Category Reaction Reaction Severity Criticality Documentation Date Start Date Code Code System Note Provider Name and Address Organization Details Recorded Time 146394 honey bee venom medicatio n Not available Not available Not available 09/01/2024 97435 7 RxNorm Not Available Not Available Not Available 100973 Product containin g penicilli n (product) medicatio n Not available Not available Not available 09/01/2024 99164 8001 SNOMED Not Available Not Available Not [...] Updated DateTime 10/29/2024 187.96 cm Claudia Rossi [facility] 10/29/2024 16:34:46 Social History Question Answer Notes LastModified by Organizat ion Details LastModified Time Tobacco Smoking Status Former Smoker Kurt rajan, [facility] 09/09/2024 10:55:43 What Is Your Level [...] quadrivalent, PF 1 completed Kurt Meath null, [facility] 09/09/2024 10:52:31 Influenza, high-dose, quadrivalent, PF 0 completed Kurt Meath null, [facility] 09/09/2024 10:52:31 Influenza, adjuvanted, quadrivalent, PF 3 completed Kurt Meath null, [facility] 09/09/2024 10:52:31 Influenza, adjuvanted, quadrivalent, PF 2 completed Kurt Meath null, [facility] 09/09/2024 10:52:31 COVID-19, mRNA, LNP-S, PF, 30 mcg/0.3 mL dose 1 completed Kurt Meath null, [facility] 09/09/2024 10:52:31 COVID-19, mRNA, LNP-S, PF, 30 mcg/0.3 mL dose 1 completed Kurt Meath null, [facility] 09/09/2024 10:52:31 COVID-19, mRNA, LNP-S, PF, 30 mcg/0.3 mL dose 1 completed Kurt Meath null, [facility] 09/09/2024 10:52:31 COVID-19, mRNA, LNP-S, bivalent, PF, 30 mcg/0.3 mL dose 2 completed Kurt Meath null, [facility] 09/09/2024 10:52:31 RSV, recombinant, protein subunit RSVpreF, adjuvant reconstituted, 0.5 mL, PF 4 completed Kurt Meath null, [facility] 09/09/2024 10:52:31 COVID-19, mRNA, LNP-S, PF, 50 mcg/0.5 mL 4 completed Kurt Meath null, [facility] 09/09/2024 10:52:31 COVID-19, mRNA, LNP-S, PF, 50 mcg/0.5 mL 3 completed Kurt Meath null, [facility] 09/09/2024 10:52:31 pneumococcal polysaccharide PPV23 8 completed Kurt Meath null, [facility] 09/09/2024 10:52:31 Tdap 6 completed Kurt Meath null, [facility] 09/09/2024 10:52:31 Pneumococcal conjugate PCV 13 7 completed Kurt Meath null, [facility] 09/09/2024 10:52:31 zoster live 7 completed Kurt Meath null, [facility] 09/09/2024 10:52:31 Influenza, high-dose, trivalent, PF 8 completed Kurt Meath null, [facility] 09/09/2024 10:52:31 Influenza, high-dose, trivalent, PF 7 completed Kurt Meath null, [facility] 09/09/2024 10:52:31 Influenza, high-dose, trivalent, PF 9 completed Kurt Meath null, [facility] 09/09/2024 10:52:31 Td (adult), 2 Lf tetanus toxoid, preservative free, adsorbed 5 completed Kurt Meath null, [facility] 09/09/2024 10:52:31 Hep A, adult 3 completed Kurt Meath null, [facility] 09/09/2024 10:52:31 typhoid, ViCPs 3 completed Kurt Meath null, [facility] 09/09/2024 10:52:31 influenza, seasonal, intradermal, preservative free 2 completed Kurt Meath null, [facility] 09/09/2024 10:52:31 influenza, seasonal, intradermal, preservative free 1 completed Kurt Meath null, [facility] 09/09/2024 10:52:31 Influenza, split virus, quadrivalent, PF 6 completed Kurt Meath null, [facility] 09/09/2024 10:52:31 Influenza, split virus, quadrivalent, PF 4 completed Kurt Meath null, [facility] 09/09/2024 10:52:31 Past Encounters Encounter ID Performer Location Encounter Start Date Encounter Closed Date Diagnosis/Indication Diagnosis SNOMED-CT Code Diagnosis ICD10 Code Diagnosis Note [id number] Eleni Jenkins [facility] [employer] [facility] [address] [place] [phone] 10/02/2024 11:30:07 10/07/2024 04:01:24 Urinary tract infectious disease 08432290 N39.0 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 UA/UC today. [id number] Obey Pedraza MD [facility] [address] [place] [phone] 10/15/2024 13:50:10 10/19/2024 09:45:18 Retention of urine 741529371 R33.9 Lower urin winsome tract symptoms due to benign prostatic hypertrophy 8041521771 9101 N40.1 Renato hematuria 30851846 5 R31.0 [id number] Claudia Muñozro[facility] [address] [facility] [place] [address] 10/29/2024 14:34:46 10/29/2024 16:55:37 Retention of urine 917100251 R33.9 Health Concerns Section Related Observation LastModified by Organization Detai ls LastModified Time None Recorded Concern Status LastModified by Organization Details LastModified Time None Recorded Payers Encounter Date Sequence Insurance Name Policy Number Policy Bustamante Covered Member ID Bustamante Member ID Guarantor Name 10/29/2024 1 [place] [employer] Suresh Martinez [id number] Suresh Martinez 10/29/2024 2 [facility] [id number] Suresh Martinez [id number] Suresh Martinez
--- OUTSIDE RECORDS SUMMARY | 2024-11-16 09:18 | XMS_ITS | Clinical Summary ---
Author Organization [facility] Address [address] [place] [id number] Care Team Providers Care Last Repairer Helper Name Role Phone Santi Juarez MD Primary Care Provider [phone] Allergies Active Allergy Reactions Criticality Noted Date Comments Bee Pollen *Unknown 12/18/2004 Venom-Honey Bee Anaphylaxis High 04/18/2015 Penicillins *Unknown - Follow up needed 04/18/2015 ##No similarities in side chains, very low to no risk of cross-sensitivity to ANCEF. ANW Antimicrobial Stewardship Team 05/2019 Medications EPINEPHrine (EpiPen 2-Tae) 0.3 mg/0.3 mL injectionIndication s:anaphylaxis Inject 0.3 mg intramuscular each time if needed. Active atorvastatin (LIPITOR) 40 mg tabletIndications:h ypercholesterolemia Take by mouth once daily in the evening. 12/06/19 21 Active glipiZIDE extended-release (GLUCOTROL XL) 5 mg Extended-Release tabletIndications:t ype 2 diabetes mellitus Take by mouth once daily before a meal. 11/30/19 21 Active metFORMIN (GLUCOPHAGE XR) 500 mg Extended-Release tabletIndications:t ype 2 diabetes mellitus Take 1,000 mg by mouth once daily. Active lisinopriL (PRINIVIL; ZESTRIL) 10 mg tabletIndications:h ypertension Take 10 mg by mouth once daily. 02/14/20 21 Active tamsulosin (Flomax) 0.4 mg capsuleIndications: benign prostatic hyperplasia with lower urinary tract sx Take 0.4 mg by mouth once daily after a meal. Active dilTIAZem SR (CARDIZEM SR) 60 mg extended release 12 hr capsuleIndications: ventricular rate control in atrial fibrillation Take 60 mg by mouth two times daily. Active amLODIPine (Norvasc) 10 mg tabletIndications:h ypertension Take 10 mg by mouth once daily. Active apixaban (ELIQUIS) 5 mg tabletIndications:p revent thromboembolism in chronic atrial fibrillation Take 1 Tablet (5 mg) by mouth two times daily. 10/11/19 25 Active Active Problems Problem Noted Date Diagnosed Date PAF (paroxysmal atrial fibrillation) 10/06/2024 Acute blood loss anemia 10/06/2024 Benign [...] Encounters Date Type Department Care Team Description 11/05/2024 10:30 AM CDT Office Visit [facility] [address] [place] [address] Adrien Suarez MD Arrived 10/08/2024 3:37 PM KISS MIXER Anesthesia Event [address] [address] Cecilia Patel MD Wagner, Stephen Robert, MD 10/08/2024 3:25 PM KISS MIXER - 10/08/2024 5:03 PM K[facility] M[facility]ER Surgery [address] [address] Marcia Epstein MD CYSTOSCOPY, CLOT EVACUATION, FULGURATION 10/06/2024 2:08 PM KISS MIXER - 10/10/2024 12:06 PM KISS M[facility]ER Hospital Encounter [address] [address] s, U Hospitalist Abhi Young MD Atrial fibrillation, unspecified type (HC) (Primary Dx); Benign prostatic hyperplasia with lower urinary tract symptoms, symptom details unspecified Discharge Disposition: Home Self Care 10/06/2024 Travel 09/24/2024 Transcribe Orders [facility] [address] [place] [address] Doug Dia MD 09/23/2024 Transcribe Orders Customer Experience [facility] [phone] Shaun Baer MD 08/28/2024 3:00 PM KISS MIXER Ancillary Procedure [facility] [address] [facility] [place] [address] 08/27/2024 Telephone [facility] [address] [place] [address] Harvey Gonzalez MD from Last 3 Months [...] on file Legal Sex Male 7:26 PM KISS MIXER Gender Identity Not on file Sexual Orientation Not on file Obstetrics History Last Filed Vital Signs Vital Sign Reading Time Taken Comments Blood Pressure 144/66 10/10/2024 7:21 AM KISS MIXER Pulse 58 10/10/2024 7:21 AM KISS MIXER Temperature 36.4 C (97.5 F) 10/10/2024 7:21 AM KISS MIXER Respiratory Rate 17 10/10/2024 7:21 AM KISS MIXER Oxygen Saturation 96% 10/10/2024 7:21 AM KISS MIXER Inhaled Oxygen Concentration - - Weight 73.9 kg (163 lb) 10/09/2024 5:08 AM KISS MIXER Height 188 cm (6' 2) 10/09/2024 5:08 AM KISS MIXER Body Mass Index 20.93 10/09/2024 5:08 AM KISS MIXER Plan of Treatment Health Maintenance Due Date [...] 12/07/2020 COVID-19 vaccine series ( season) 2024 04/16/2024, 05/08/2022, 06/01/2021, Additional history exists Influenza Vaccine (Season Ended) 2025 05/19/2014, 05/11/2012, 05/14/2011 Colonoscopy through age 77 04/03/202804/03, 04/03/2023, 04/01/2018, Additional history exists Tdap Completed 11/17/2004 AAA screening age 65-74 Completed 12/09/2020 Medical Devices Implanted Type Area Printing Film Stripper Device Identifier Shelf Expiration Date Model / Serial / Lot Tissue Pericardium 0.8x8cm Xenosure - [id number] Implanted:Qty: 1 on 01/03/2021 by Warren Peña MD at [facility] Right: Carotid Artery [employer] 08/08/2026 0.8P8 / / [id number] Procedures Procedure Name Priority Date/Time Associated Diagnosis Comments HEMOGLOBIN Early AM 10/10/2024 7:27 AM KISS MIXER GLUCOSE METER Timed 10/10/2024 7:23 AM KISS MIXER GLUCOSE METER Timed 10/09/2024 9:12 PM KISS M[employer]ER GLUCOSE METER Timed 10/09/2024 4:48 PM KISS MIXER GLUCOSE METER Timed 10/09/2024 11:35 AM KISS MIXER GLUCOSE METER Timed 10/09/2024 6:42 AM KISS MIXER HEMOGLOBIN Timed 10/09/2024 6:38 AM KISS MIXER GLUCOSE METER Timed 10/08/2024 9:08 PM KISS MIXER HEMOGLOBIN Timed 10/08/2024 6:56 PM KISS MIXER GLUCOSE METER Timed 10/08/2024 6:40 PM KISS MIXER EKG 12 LEAD STAT 10/08/2024 6:34 PM KISS MIXER GLUCOSE METER Timed 10/08/2024 5:51 PM KISS MIXER GLUCOSE METER Timed 10/08/2024 4:43 PM KISS MIXER SUPRAGLOTTIC-LMA Routine 10/08/2024 4:09 PM KISS MIXER CYSTOSCOPY EVACUATION BLADDER CLOTS 10/08/2024 3:27 PM KISS MIXER Gross hematuria GLUCOSE METER Timed 10/08/2024 3:20 PM KISS MIXER GLUCOSE METER Timed 10/08/2024 11:50 AM KISS MIXER SCAN CORRESP-LABORATORY RESULTS 10/08/2024 10:55 AM KISS MIXER GLUCOSE METER Timed 10/08/2024 6:37 AM KISS MIXER HEMOGLOBIN Early AM 10/08/2024 6:04 AM KISS MIXER GLUCOSE METER Timed 10/07/2024 11:53 PM KISS MIXER GLUCOSE METER Timed 10/07/2024 9:08 PM KISS MIXER GLUCOSE METER Timed 10/07/2024 5:14 PM KISS MIXER US RENAL AND BLADDER COMPLETE TYLER 10/07/2024 12:04 PM KISS MIXER GLUCOSE METER Timed 10/07/2024 11:34 AM KISS MIXER GLUCOSE METER Timed 10/07/2024 8:07 AM KISS MIXER HEMOGLOBIN Timed 10/07/2024 6:45 AM KISS MIXER HEMOGLOBIN Timed 10/06/2024 11:29 PM KISS MIXER GLUCOSE METER Timed 10/06/2024 9:13 PM KISS MIXER GLUCOSE METER Timed 10/06/2024 5:11 PM KISS MIXER TYPE & SCREEN Today 10/06/2024 4:12 PM KISS MIXER BASIC METABOLIC PANEL Today 10/06/2024 4:12 PM KISS MIXER PLATELET COUNT Today 10/06/2024 4:12 PM KISS MIXER HEMOGLOBIN Timed 10/06/2024 4:12 PM KISS MIXER HEMOGLOBIN A1C MONITORING (POCT) Today 10/06/2024 4:12 PM KISS MIXER SCAN-CARDIAC STRIP 10/06/2024 12 :00 AM KISS MIXER ECHO TTE COMPLETE WO CONTRAST Routine 08/28/2024 1:07 PM KISS MIXER New onset a-fib (HC) COLONOSCOPY 04/03/2023 9:22 AM CDT US ABD AORTA SCREENING Routine 12/09/2020 9:28 AM CDT HTN (hypertension) from Last 3 Months or Most Recently Relevant to Health Maintenance Results * (ABNORMAL) HEMOGLOBIN (10/10/2024 7:27 AM KISS MIXER) Only the most recent of7 resultswithin the time period is included. HEMOGLOBIN 8.3(L) 13.5 - 17.5 g/dL 10/10/2024 7:41 AM KISS MIXER [facility] MCV 84 80 - 100 fL 10/10/2024 7:41 AM KISS MIXER [facility] Blood BLOOD SPECIMEN / Unknown Venipuncture / Unknown 10/10/2024 7:27 AM KISS MIXER 10/10/2024 7:36 AM KISS MIXER Abhi Vogel MD HEMATOLOGY Final Re sult [facility] SENDOUT INTERNAL ZIP [phone] [place] [address] * (ABNORMAL) GLUCOSE METER (10/10/2024 7:23 AM KISS MIXER) Only the most recent of19 resultswithin the time period is included. GLUCOSE METER 166(H) 65 - 100 mg/dL 10/10/2024 7:27 AM KISS MIXER [facility] Blood BLOOD SPECIMEN / Unknown 10/10/2024 7:23 AM KISS MIXER 10/10/2024 7:27 AM KISS MIXER Abhi Vogel MD CHEMISTRY Final Re sult [facility] SENDOUT INTERNAL ZIP [id number] [place] [address] * 12 Lead EKG - PRN (10/08/2024 6:34 PM KISS MIXER) Interpretation Normal sinus rhythm Anterior infarct , [...] NOW QTc 410 ms BEYOND NOW P Harrington 100 degrees BEYOND NOW R Harrington -4 degrees BEYOND NOW T Harrington -7 degrees BEYOND NOW 10/08/2024 6:34 PM KISS MIXER 10/09/2024 8:13 AM KISS MIXER Abhi Vogel MD EKG ORD Final Re sult Performing Organization Address City/[facility]/ZIP Co de Phone Number [place] NOW [place], [place] * HCHG MASK PR5 (10/08/2024 4:09 PM KISS MIXER) Narrative Luís Khalil CRNA - 10/08/2024 4:09 PM KISS MIXER Luís Khalil CRNA 10/08/2024 4:09 PM Procedure: Supraglottic Patient location during procedure: OR Supraglottic Airway Properties Mask Ventilation: not attempted Type: unique Tube Size: 5 Insertion Attempts: 1 Placement Verification: auscultation and CO2 detection Assessment Assessment: atraumatic and dentition unchanged Airway Intervention: cuff Pressure within defined and secured Cecilia Patel MD ANESTHESIA PX NOTE ORDERABLES Edited Result - Final * SCAN CORRESP-LABORATORY RESULTS (10/08/2024 10:55 AM KISS MIXER) Narrative 10/08/2024 10:55 AM KISS MIXER Ordered by an unspecified provider. us Other Clinical Staff OTHER Final Resul t * US RENAL AND BLADDER COMPLETE (10/07/2024 12:04 PM KISS MIXER) Anatomical Region Laterality Modality Abdomen, AORTA, KIDNEYS Ultrasou nd 10/07/2024 12:0 4 PM KISS MIXER Impressions 10/07/2024 12:12 PM KISS MIXER 1. Normal kidney ultrasound. 2. Decompressed urinary bladder with Fragoso catheter in place. Narrative 10/07/2024 12:12 PM KISS MIXER For Patients: As a result of the [...] EXAM: US RENAL AND BLADDER COMPLETE LOCATION: [facility] DATE: 10/07/2024 INDICATION: Hematuria COMPARISON: [...] * TYPE & SCREEN (10/06/2024 4:12 PM KISS MIXER) ABORH AB Rh Positive 10/06/2024 5:21 PM KISS MIXER [facility] ANTIBODY SCREEN Negative Negative 10/06/2024 5:21 PM KISS MIXER [facility] SPECIMEN EXPIRATION DATE/TIME 10/09/24 23:59 10/06/2024 5:21 PM KISS MIXER [facility] Blood BLOOD SPECIMEN / Unknown Venipuncture / Unknown 10/06/2024 4:12 PM KISS MIXER 10/06/2024 4:27 PM KISS MIXER Abhi Vogel MD BLOOD BANK Final Re sult [facility] [address] [place] [address] * PLATELET COUNT (10/06/2024 4:12 PM KISS MIXER) PLATELET COUNT 224 140 - 440 thou/cu mm 10/06/2024 4:29 PM KISS MIXER [facility] MPV 10.0 6.5 - 11.0 fL 10/06/2024 4:29 PM KISS MIXER [facility] Blood BLOOD SPECIMEN / Unknown Venipuncture / Unknown 10/06/2024 4:12 PM KISS MIXER 10/06/2024 4:27 PM KISS MIXER Abhi Vogel MD HEMATOLOGY Final Re sult [facility] SENDOUT INTERNAL ZIP [id number] [place] [address] * Hemoglobin A1C (10/06/2024 4:12 PM KISS MIXER) HEMOGLOBIN A1C MONITORING (POCT) 6.3 <=6.4 % 10/06/2024 6:05 PM KISS MIXER [facility] Blood BLOOD SPECIMEN / Unknown Venipuncture / Unknown 10/06/2024 4:12 PM KISS MIXER 10/06/2024 4:27 PM KISS MIXER Narrative [facility] - 10/06/2024 6:05 PM KISS MIXER (<=6.9%) Indicates good control (7.0% to 7.9%) Indicates fair control (>=8.0%) Indicates poor control NOTE: These thresholds are guidelines and individual targets may vary. Falsely low levels may be seen with: Recent Transfusion, Recent Significant Blood Loss, Hemolytic Diseases, or Falsely elevated levels may be seen with: Untreated Anemias, Splenectomy Abhi Vogel MD CHEMISTRY Final Re sult [facility] SENDOUT INTERNAL ZIP [phone] [place] [address] * (ABNORMAL) BASIC METABOLIC PANEL (10/06/2024 4:12 PM KISS MIXER) SODIUM 134(L) 136 - 145 mmol/L 10/06/2024 4:49 PM [facility] POTASSIUM 3.9 3.5 - 5.1 mmol/L 10/06/2024 4:49 PM [facility] CHLORIDE 100 98 - 107 mmol/L 10/06/2024 4:49 PM [facility] CO2,TOTAL 24 22 - 29 mmol/L 10/06/2024 4:49 PM [facility] ANION GAP 10 5 - 18 10/06/2024 4:49 PM [facility] GLUCOSE 125(H) 70 - 99 mg/dL 10/06/2024 4:49 PM [facility] CALCIUM 8.8 8.8 - 10.4 mg/dL 10/06/2024 4:49 PM [facility] Comment: Reference ranges for this test were updated on 06/16/2024 to reflect our healthy population more accurately. Reference range changes are not retroactively applied to results, but previous results using the same methodology can be interpreted in the context of the new reference range. BUN 17 8 - 23 mg/dL 10/06/2024 4:49 PM [facility] CREATININE 0.76 0.70 - 1.20 mg/dL 10/06/2024 4:49 PM [facility] BUN/CREAT RATIO 22(H) 10 - 20 4:49 PM [facility] eGFR >90 >90 mL/min/1. 73m2 10/06/2024 4:49 PM [facility] Comment:As of 2021, eG FR is calculated by the CKD-EPI creatinine equation without race adjustment. eGFR can be influenced by muscle mass, exercise, and diet. The reported eGFR is an estimation only and is only applicable if the renal function is stable. Blood BLOOD SPECIMEN / Unknown Venipuncture / Unknown 10/06/2024 4:12 PM KISS MIXER 10/06/2024 4:27 PM KISS MIXER us Abhi Vogel MD CHEMISTRY Final Re sult [facility] SENDOUT INTERNAL ZIP [phone] [place] [address] * SCAN-CARDIAC STRIP (10/06/2024 12:00 AM KISS MIXER) Narrative 10/06/2024 12:00 AM KISS MIXER Ordered by an unspecified provider. us Other Clinical Staff OTHER Final Resul t * ECHO TTE COMPLETE WO CONTRAST (08/28/2024 1:07 PM KISS MIXER) AORTIC VALVE MEAN PG 5 mmHg EJECTION FRACTION 67 % PEAK TR VELOCITY 2.7 m/s LVEDD 3.8 cm EJECTION FRACTION 60 - 65% Anatomical Region Laterality Modality Ultrasound 08/28/2024 10:4 4 AM KISS MIXER Narrative 08/28/2024 1:14 PM KISS MIXER ECHOCARDIOGRAM SURESH MOLINA : 1950 74 years Study Date: 08/28/2024 10:44:58 AM Gender: M BP: 179/93 mmHg Height: 188.00 cm BSA: 2.10 m Weight: 84.00 kg Tech: SEN Referring MD: LEOPOLDO MUÑIZ Site: [facility] Reading Location: Mobile-IP Patient [...] . This study was interpreted by an [facility] accredited facility. CC: HIM (med records) [facility], Med/Surg - IP [facility]. Final Procedure Note Jony Donato MD - 08/28/2024 ECHOCARDIOGRAM SURESH MOLINA : 1950 74 years Study Date: 08/28/2024 10:44:58 AM Gender: M BP: 179/93 mmHg Height: 188.00 cm BSA: 2.10 m Weight: 84.00 kg Tech: SEN Referring MD: LEOPOLDO MUÑIZ Site: [facility] Reading Location: Mobile-IP Patient [...] [facility] accredited facility. CC: HIM (med records) [facility], Med/Surg - IP [facility]. Final us Leopoldo Muñiz PA ECHO ORD Final Result * COLONOSCOPY (04/03/2023 9:22 AM CDT) 04/03/2023 9:22 AM CDT Narrative Transcriptions Moi Lui MD - 04/03/2023 11:12 AM CDT Patient Name: Suresh Molina Procedure Date: 04/03/2023 Gender: Male Date of : 1950 Admit Type: Outpatient Procedure: Colonoscopy Proceduralist: Moi Lui MD , Concepción Teixeira, SAYRA (Nurse), Gris Sanderson (Nurse) Indications/Pre-Op Diagnosis: High [...] candidate for conscious sedation. The endoscope [id number] was passed through the anus andadvanced to [...] 9:22 AM Procedure Code(s): --- Professional --- 31516, Colonoscopy, flexible; with removalof tumor(s), polyp(s), or other lesion(s) bysnare technique Diagnosis Code(s): --- Professional --- Z86.010, Personal history of colonicpolyps D12.2, Benign neoplasm of ascending colon K57.30, Diverticulosis of large intestine without perforation or abscess withoutbleeding CPT copyright 2021 [employer]. All rights reserved. The codes documented in this report are preliminary and upon production quality manager reviewmay be revised to meet current [...] Gender: M Referring MD: WARREN PEÑA Site: [facility] Study performed: Iliac, (bilateral) [...] study was performed and interpreted by [facility], a service accredited by the [employer] Accreditation Commission (IAC/Vascular), www.intersocietal.org/vascular Report generated by [employer]. Final Procedure Note Valdemar Sandoval MD - 12/10/2020 VASCULAR ULTRASOUND REPORT SURESH MOLINA : 1950 Study Date: 12/09/2020 9:05:56 AM Age: 70 years Tech: Elo Juarez Gender: M Referring MD: WARREN PEÑA Site: [facility] Study performed: Iliac, (bilateral) [...] This study was performed and interpreted by [email or web address], a service accredited by the Intersocietal Accreditation Commission (IAC/Vascular),www.intersocietal.org/vascular Report generated by [employer]. Final us Warren Peña MD Fi nal Result from Last 3 Months or Most Recently Relevant to Health Maintenance Insurance PREFERRED [facility] MEDICARE PART B HB ONLY [facility] MEDICARE [place] ONLY MEDICARE PART A HB ONLY Advance Directives * Full Code (Latest Code Status on File) Date Activated Date Inactivated Comments 10/06/2024 2:51 PM 10/10/2024 2:11 PM Question Answer Comments Code Status Discussion: Reviewed Preferences * Full Code Date Activated Date Inactivated Comments 01/03/2021 6:00 AM 01/04/2021 1:54 PM Question Answer Comments Code Status Discussion: Not Discussed Care Teams Last Repairer Helper Relationship Specialty Start Date End Date Santi Juarez MD [address] [place] [address] PCP - General Family Practice 12/07/20
--- OUTSIDE RECORDS SUMMARY | 2024-11-16 09:18 | XMS_ITS | Data Portability ---
Author Organization [facility], [facility] Address [address] [facility] [address] [place] [address] Care Team Providers Care Coal Conveyor Operator Name Role Phone DOMI SHEA Primary Care [...] dipstick - Per UTI protocol 2024 025 [facility], [address], [address], [place], [address], 10/02/2024 11:59:38 urinalysi s, microscop ic 02/21/ 2025 02/21/[address] [facility] [place] [facility], [address], [address], [place], [address], 10/02/2024 11:46:20 culture, urine 2024 025 [facility], [address], [address], [place], [address], 10/04/2024 12:02:22 Referral None recorded. Procedures urodynami c testing, complex (PROC) 2024 025 [email or web address] Not available 09/20/2024 18:38:38 Surgeries laser enucleati on of prostate with morcellat ion (SURG) 2024 025 [email or web address] Not available 10/16/2024 10:36:[address], urogram 2024 025 [facility], [address] [place], [address], 09/23/2024 21:57:47 Medication Orders Macrobid 100 mg capsule [address] [facility], [address] [place] [address], [address], 10/02/2024 11:35:40 Patient TargetsNo targets recorded. Patient Instructions Encounter Date Encounter Id Patient Instructions Last Modified By Organization Details Last Modified Time 09/09/2024 [id number] urodynamic studi es: about these tests Not [...] prostate cancer. Not available 09/09/2024 11:12:41 09/29/2024 [id number] Impression: 1) Smaller capacity, normal compliant bladder with repeated detrusor instability and incontinence 2) No volitional voiding on pressure/flow. MInimal void on non-invasive testing, with elevated residual. 3) The most probable diagnosis is bladder outlet obstruction, as he does not have myogenic failure. [email or web address] Not available 10/11/2024 11:34:10 10/15/2024 [id number] Benign prostatic hyperplasia with lower urinary tract [...] [hpf] 0 - 2 abnormal Not Available [facility] [address] [facility] [address], [place], [address], 10/02/2024 11:59:38 10/02/19 25 10/02/2024 UA MICRO SCOPI C (ABNO RMAL COLOR ) U-RBC PACKED [hpf] 0 - 2 abnormal Not Available [facility] [address] [facility] [address], [place], [address], 10/02/2024 11:59:38 10/02/19 25 10/02/2024 UA MICRO SCOPI C (ABNO RMAL COLOR ) bacteria MANY [hpf] none;r are abnormal Not Available [facility] [address] [facility] [address], [place], [address], 10/02/2024 11:59:38 10/02/19 25 10/02/2024 UA MICRO [...] for provi katy revie w. Not Available [facility] [address] [facility] [address], [place], [address], 10/02/2024 11:59:38 10/02/19 25 10/02/2024 UA MICRO SCOPI C (ABNO RMAL COLOR ) sperm PRESEN T /hpf none-s een abnormal Not Available [facility] [address] [facility] [address], [place], [address], 10/02/2024 11:59:38 10/02/19 25 10/02/2024 URINE CULTU [...] ate 1) Sensi tivit y Ronel sis [place] te 1 ----- ----- ----- ----- ----- [...] s Desk Refer ence or from the [facility] actur er. S= Susce ptibl e;I= [...] for provi katy revie w. Not Available [facility] [address], [place], [address], 10/04/2024 12:02:22 09/23/19 25 09/23/2024 CT, urogr am No observ ation record ed. [email or web address] [facility] [address], [place], [address], 10/13/2024 08:55:07 Result Notes None recorded. Problems Name Problem SNOMED Code Status Onset Date Resolution Date Notes Provider Name and Address Organization Details Recorded Time Retention of urine 509774602 Active [address] [facility] 5 12:52:01 Type 2 diabetes mellitus 56353876 Active 2024 RIAZ Jc [facility] 5 12:52:35 Hypertensiv e disorder 58344847 Active 2024 Kurt Gasparjeri satinder, [facility] 5 12:52:38 Lower urinary tract symptoms due to benign prostatic hypertrophy 6804354520647 1 Active 2024 Kurt Owens null, [facility] 5 10:56:02 Problem Notes None recorded. Procedures Surgical History Date Name Laterality Status Provider Name and Address Organization Details Recorded Time 5 SWENSON CHANGE completed Claudia Rossi [facility] 10/29/2024 16:42:14 5 COMPLEX VISIT completed Obey Pedraza MD [address] [place] [address],[address], [address], [facility] 10/15/2024 14:26:19 5 Blood Draw/CAPTAIN CANNERY TENDER/PSA RESULTS cancelled Elo Bishop [facility] 10/05/2024 11:50:19 5 Urodynamic Studies completed Dwaine Kong MD [address] [place] [address],[address], [place], [address], [facility] 10/11/2024 11:34:02 5 Swenson Catheter Insertion completed Chelsey Munguia [facility] 09/29/2024 15:46:01 5 Cystoscopy- male completed Obey Pedraza MD [address] [place] [address],[address], [place], [address], [facility] 09/09/2024 11:09:52 5 Past Data Reviewed completed Obey Pedraza MD [address] [place] [address],[address], [place], [address], [facility] 09/09/2024 09:40:02 4 Colonoscopy completed Kurt Owens [facility] 09/09/2024 10:56:16 Imaging Results Imaging Date Name Status LastModified by Organiz ation Details LastModified Time 09/23/2024 CT, urogram completed [email or web address] [place] [address] [address], [place], [address], 10/13/2024 08:55:07 Procedure Notes None recorded. Medical Equipment None Reported. Allergies Allergen ID Allergen Name Allergen Category Reaction Reaction Severity Criticality Documentation Date Start Date Code Code System Note Provider Name and Address Organization Details Recorded Time 340171 honey bee venom medicatio n Not available Not available Not available 09/01/2024 39913 7 RxNorm Not Available Not Available Not Available 392018 Product containin g penicilli n (product) medicatio n Not available Not available Not available 09/01/2024 33821 8001 SNOMED Not Available Not Available Not [...] Updated DateTime 09/09/2024 187.96 cm 23.1 kg/m2 91210.63 g Kurt Meath [place] [facility] 09/09/2024 10:55:12 Date Recorded Body height Provider Name an d Address Organization Details Last Updated DateTime 09/29/2024 187.96 cm Chelsey Munguia [facility] 15:18:31 Date Recorded Body height Body mass index (BMI) Body weight Provider Name and Address Organization Details Last Updated DateTime 10/02/2024 187.96 cm 23.1 kg/m2 54916.63 g Eleni Thomas [facility] 10/02/2024 11:35:02 Date Recorded Body height Provider Name an d Address Organization Details Last Updated DateTime 10/15/2024 187.96 cm Kurt Owens [facility] 13:52:17 Date Recorded Body height Provider Name an d Address Organization Details Last Updated DateTime 10/29/2024 187.96 cm Claudia Enid [facility] 10/29/2024 16:34:46 Social History Question Answer Notes LastModified by Organizat ion Details LastModified Time Tobacco Smoking Status Former Smoker Kurt Owens satinder [facility] 09/09/2024 10:55:43 What Is Your Level [...] trivalent, PF 4 completed Kurt Meath null, [facility] 09/09/2024 10:52:31 zoster recombinant 3 completed Kurt Meath null, [facility] 09/09/2024 10:52:31 zoster recombinant 3 completed Kurt Meath null, [facility] 09/09/2024 10:52:31 Influenza, high-dose, quadrivalent, PF 1 completed Kurt Meath null, [facility] 09/09/2024 10:52:31 Influenza, high-dose, quadrivalent, PF 0 completed Kurt Meath null, [facility] 09/09/2024 10:52:31 Influenza, adjuvanted, quadrivalent, PF 3 completed Kurt Meath null, [facility] 09/09/2024 10:52:31 Influenza, adjuvanted, quadrivalent, PF 2 completed Kurt Meath null, [facility] 09/09/2024 10:52:31 COVID-19, mRNA, LNP-S, PF, 30 mcg/0.3 mL dose 1 completed Kurt Meath null, [facility] 09/09/2024 10:52:31 COVID-19, mRNA, LNP-S, PF, 30 mcg/0.3 mL dose 1 completed Kurt Meath null, [facility] 09/09/2024 10:52:31 COVID-19, mRNA, LNP-S, PF, 30 mcg/0.3 mL dose 1 completed Kurt Meath null, [facility] 09/09/2024 10:52:31 COVID-19, mRNA, LNP-S, bivalent, PF, 30 mcg/0.3 mL dose 2 completed Kurt Meath null, [facility] 09/09/2024 10:52:31 RSV, recombinant, protein subunit RSVpreF, adjuvant reconstituted, 0.5 mL, PF 4 completed Kurt Meath null, [facility] 09/09/2024 10:52:31 COVID-19, mRNA, LNP-S, PF, 50 mcg/0.5 mL 4 completed Kurt Meath null, [facility] 09/09/2024 10:52:31 COVID-19, mRNA, LNP-S, PF, 50 mcg/0.5 mL 3 completed Kurt Meath null, [facility] 09/09/2024 10:52:31 pneumococcal polysaccharide PPV23 8 completed Kurt Meath null, [facility] 09/09/2024 10:52:31 Tdap 6 completed Kurt Meath null, [facility] 09/09/2024 10:52:31 Pneumococcal conjugate PCV 13 7 completed Kurt Meath null, [facility] 09/09/2024 10:52:31 zoster live 7 completed Kurt Meath null, [facility] 09/09/2024 10:52:31 Influenza, high-dose, trivalent, PF 8 completed Kurt Meath null, [facility] 09/09/2024 10:52:31 Influenza, high-dose, trivalent, PF 7 completed Kurt Meath null, [facility] 09/09/2024 10:52:31 Influenza, high-dose, trivalent, PF 9 completed Kurt Meath null, [facility] 09/09/2024 10:52:31 Td (adult), 2 Lf tetanus toxoid, preservative free, adsorbed 5 completed Kurt Meath null, [facility] 09/09/2024 10:52:31 Hep A, adult 3 completed Kurt Meath null, [facility] 09/09/2024 10:52:31 typhoid, ViCPs 3 completed Kurt Meath null, [facility] 09/09/2024 10:52:31 influenza, seasonal, intradermal, preservative free 2 completed Kurt Meath null, [facility] 09/09/2024 10:52:31 influenza, seasonal, intradermal, preservative free 1 completed Kurt Meath null, [facility] 09/09/2024 10:52:31 Influenza, split virus, quadrivalent, PF 6 completed Kurt Meath null, [facility] 09/09/2024 10:52:31 Influenza, split virus, quadrivalent, PF 4 completed Kurt Meath null, [facility] 09/09/2024 10:52:31 Past Encounters Encounter ID Performer Location Encounter Start Date Encounter Closed Date Diagnosis/Indication Diagnosis SNOMED-CT Code Diagnosis ICD10 Code Diagnosis Note [id number] MD Dinesh Fish[address] [address] 09/09/2024 10:45:26 09/09/2024 11:49:30 Lower urinary tract symptoms due to benign prostatic hypertrophy 1339411968 9101 N40.1 Retention of urine 96576 4002 R33.9 Renato hematuria 42340803 5 R31.0 [id number] MD Geovanni Manriquez ayden [address] [place] [address] 09/29/2024 12:37:22 10/12/2024 09:16:29 Lower urinary tract symptoms due to benign prostatic hypertrophy 6615801169 9101 N40.1 Retention of urine 35057 4002 R33.9 [id number] [facility] [address] [address] 10/02/2024 11:30:07 10/07/2024 04:01:24 Urinary tract infectious disease 40341940 N39.0 Per UTI/incident commander protocol. UA/ today. [id number] MD Geovanni Fish [address] [place] [address] 10/15/2024 13:50:10 10/19/2024 09:45:18 Retention of urine 653579057 R33.9 Lower urin winsome tract symptoms due to benign prostatic hypertrophy 3665998591 9101 N40.1 Renato hematuria 06419747 5 R31.0 [id number] Claudia Galarza dbury [address] [facility] e [address] [place] [address] 10/29/2024 14:34:46 10/29/2024 16:55:37 Retention of urine 143742113 R33.9 Health Concerns Section Related Observation LastModified by Organization Detai ls LastModified Time None Recorded Concern Status LastModified by Organization Details LastModified Time None Recorded Advance Directives Directive None Recorded Payers Encounter Date Sequence Insurance Name Policy Number Policy Bustamante Covered Member ID Bustamante Member ID Guarantor Name 09/09/2024 1 [place] [employer] Suresh H Broske [id number] Suresh H Broske 09/09/2024 2 [place] [id number] Suresh H Broske [id number] Suresh H Broske 09/29/2024 1 [place] [employer] Suresh H Broske [id number] Suresh H Broske 09/29/2024 2 [place] [id number] Suresh H Broske [id number] Suresh H Broske 10/02/2024 1 [place] [employer] Suresh H Broske [id number] Suresh H Broske 10/02/2024 2 [place] [id number] Suresh H Broske [id number] Suresh H Broske 10/15/2024 1 [place] [employer] Suresh H Broske [id number] Suresh H Broske 10/15/2024 2 [place] [id number] Suresh H Broske [id number] Suresh H Broske 10/29/2024 1 [place] [employer] Suresh H Broske [id number] Suresh Martinez 10/29/2024 2 [facility] [id number] Suresh Martinez [id number] Suresh Martinez Notes Date Note Type Note [...] gross hematuria and was admitted at [facility] for continuous bladder irrigation.He still has his Swenson indwelling. Obey Pedraza MD [address] [place] [address],[address], [address], [facility] 09/09/2024 11:13:03 10/15/2024 text/html This is a [...] gross hematuria and was admitted at [facility] for continuous bladder irrigation.He has failed [...] evidence of outlet obstruction.He was admitted at [facility] from 10/06/2024 - 10/10/2024 with gross hematuria and clot urinary retention.He required cystoscopy, clot evacuation, and fulguration of bleeding 10/08/2024.He is here today to discuss next steps in management. Obey Pedraza MD [address] [place] [address],[address], [place], [address], [facility] 10/15/2024 14:28:58
--- OUTSIDE RECORDS SUMMARY | 2024-11-16 09:18 | XMS_ITS | Continuity of Care Document ---
Author Organization [facility], [facility] Address [address] [place] [address] [address] [place] [address] Care Team Providers Care Associate Buyer Name Role Phone CRISTIANOBRENDANSHEA Marcial Primary Care Provider [phone] Assessment No assessment recorded. Plan of Treatment [...] dipstick - Per UTI protocol 2024 025 [facility], [address], [address], [place], [address], 10/02/2024 11:59:38 urinalysi s, microscop ic [address] [facility], [address], [address], [place], [address], 10/02/2024 11:46:20 culture, urine 2024 025 [facility], [address], [address], [place], [address], 10/04/2024 12:02:22 Referral None recorded. Procedures None recorded. Surgeries None recorded. Imaging None recorded. Medication Orders None recorded. Patient TargetsNo targets recorded. Patient InstructionsNo instructions recorded. Reason for Referral None Reported. Results Created Date Observation Date Name Description Value Unit Range Abnormal Flag Note LastModifiedBy Organization Detail LastModifiedTime 09/23/1909/23/2024 CT, urogr am No observ ation record ed. [email or web address] [facility] [address], [place], [address], 10/13/2024 08:55:07 Result Notes None recorded. Problems Name Problem SNOMED Code Status Onset Date Resolution Date Notes Provider Name and Address Organization Details Recorded Time Retention of urine 131141553 Active 2024 [facility] 5 12:52:01 Type 2 diabetes mellitus 98574524 Active 2024 [facility] 5 12:52:35 Hypertensiv e disorder 19725823 Active 2024 [facility] 5 12:52:38 Lower urinary tract symptoms due to benign prostatic hypertrophy 0063533692023 1 Active 2024 [facility] 5 10:56:02 Problem Notes None recorded. Procedures Surgical History Date Name Laterality Status Provider Name and Address Organization Details Recorded Time 5 SWENSON CHANGE completed Claudia Rossi [facility] 10/29/2024 16:42:14 5 COMPLEX VISIT completed Obey Pedraza MD [address] [place] [address],[address], [address], [facility] 10/15/2024 14:26:19 5 Blood Draw/BORING MILL SET UP OPERATOR VERTICAL/PSA RESULTS cancelled Elo Bishop [facility] 10/05/2024 11:50:19 5 Urodynamic Studies completed Dwaine Kong MD [address] [place] [address],[address], [address], [facility] 10/11/2024 11:34:02 5 Swenson Catheter Insertion completed Chelsey Most [facility] 09/29/2024 15:46:01 5 Cystoscopy- male completed Obey Pedraza MD [address] [place] [address],[address], [address], [facility] 09/09/2024 11:09:52 5 Past Data Reviewed completed Obey Pedraza MD [address] [place] [address],[facility] [[email or web address] [address], [place], [address], [facility] 09/09/2024 09:40:02 4 Colonoscopy completed Kurt [facility] 09/09/2024 10:56:16 Imaging Results None recorded. Procedure Notes None recorded. Medical Equipment None Reported. Allergies Allergen ID Allergen Name Allergen Category Reaction Reaction Severity Criticality Documentation Date Start Date Code Code System Note Provider Name and Address Organization Details Recorded Time 426086 honey bee venom medicatio n Not available Not available Not available 09/01/2024 42613 7 RxNorm Not Available Not Available Not Available 372700 Product containin g penicilli n (product) medicatio n Not available Not available Not available 09/01/2024 94058 8001 SNOMED Not Available Not Available Not [...] Updated DateTime 10/02/2024 187.96 cm 23.1 kg/m2 06544.63 g Eleni Thomas [facility] 10/02/2024 11:35:02 Social History Question Answer Notes LastModified by Organizat ion Details LastModified Time Tobacco Smoking Status Former Smoker Kurt rajan [facility] 09/09/2024 10:55:43 What Is Your Level [...] Details Recorded Time Influenza, adjuvanted, trivalent, PF 09/05/202 4 completed Kurt Meath null, [facility] 09/09/2024 10:52:31 zoster recombinant 3 completed Kurt Meath null, [facility] 09/09/2024 10:52:31 zoster recombinant 3 completed Kurt Meath null, [facility] 09/09/2024 10:52:31 Influenza, high-dose, quadrivalent, PF 1 completed Kurt Meath null, [facility] 09/09/2024 10:52:31 Influenza, high-dose, quadrivalent, PF 0 completed Kurt Meath null, [facility] 09/09/2024 10:52:31 Influenza, adjuvanted, quadrivalent, PF 3 completed Kurt Meath null, [facility] 09/09/2024 10:52:31 Influenza, adjuvanted, quadrivalent, PF 2 completed Kurt Meath null, [facility] 09/09/2024 10:52:31 COVID-19, mRNA, LNP-S, PF, 30 mcg/0.3 mL dose 1 completed Kurt Meath null, [facility] 09/09/2024 10:52:31 COVID-19, mRNA, LNP-S, PF, 30 mcg/0.3 mL dose 1 completed Kurt Meath null, [facility] 09/09/2024 10:52:31 COVID-19, mRNA, LNP-S, PF, 30 mcg/0.3 mL dose 1 completed Kurt Meath null, [facility] 09/09/2024 10:52:31 COVID-19, mRNA, LNP-S, bivalent, PF, 30 mcg/0.3 mL dose 2 completed Kurt Meath null, [facility] 09/09/2024 10:52:31 RSV, recombinant, protein subunit RSVpreF, adjuvant reconstituted, 0.5 mL, PF 4 completed Kurt Meath null, [facility] 09/09/2024 10:52:31 COVID-19, mRNA, LNP-S, PF, 50 mcg/0.5 mL 4 completed Kurt Meath null, [facility] 09/09/2024 10:52:31 COVID-19, mRNA, LNP-S, PF, 50 mcg/0.5 mL 3 completed Kurt Meath null, [facility] 09/09/2024 10:52:31 pneumococcal polysaccharide PPV23 8 completed Kurt Meath null, [facility] 09/09/2024 10:52:31 Tdap 6 completed Kurt Meath null, [facility] 09/09/2024 10:52:31 Pneumococcal conjugate PCV 13 7 completed Kurt Meath null, [facility] 09/09/2024 10:52:31 zoster live 7 completed Kurt Meath null, [facility] 09/09/2024 10:52:31 Influenza, high-dose, trivalent, PF 8 completed Kurt Meath null, [facility] 09/09/2024 10:52:31 Influenza, high-dose, trivalent, PF 7 completed Kurt Meath null, [facility] 09/09/2024 10:52:31 Influenza, high-dose, trivalent, PF 9 completed Kurt Meath null, [facility] 09/09/2024 10:52:31 Td (adult), 2 Lf tetanus toxoid, preservative free, adsorbed 5 completed Kurt Meath null, [facility] 09/09/2024 10:52:31 Hep A, adult 3 completed Kurt Meath null, [facility] 09/09/2024 10:52:31 typhoid, ViCPs 3 completed Kurt Meath null, [facility] 09/09/2024 10:52:31 influenza, seasonal, intradermal, preservative free 2 completed Kurt Meath null, [facility] 09/09/2024 10:52:31 influenza, seasonal, intradermal, preservative free 1 completed Kurt rajan, [facility] 09/09/2024 10:52:31 Influenza, split virus, quadrivalent, PF 6 completed Kurt Owens null, [facility] 09/09/2024 10:52:31 Influenza, split virus, quadrivalent, PF 4 completed Kurt rajan, [facility] 09/09/2024 10:52:31 Past Encounters Encounter ID Performer Location Encounter Start Date Encounter Closed Date Diagnosis/Indication Diagnosis SNOMED-CT Code Diagnosis ICD10 Code Diagnosis Note [id number] [facility] [address] [address] 09/09/2024 10:45:26 09/09/2024 11:49:30 Lower urinary tract symptoms due to benign prostatic hypertrophy 0380821675 9101 N40.1 Retention of urine 01018 4002 R33.9 Renato hematuria 35540872 5 R31.0 [id number] Dwaine Kong [facility] [address] [address] 09/29/2024 12:37:22 10/12/2024 09:16:29 Lower urinary tract symptoms due to benign prostatic hypertrophy 4590466100 9101 N40.1 Retention of urine 06513 4002 R33.9 [id number] [facility] [address] [place] [address] 10/02/2024 11:30:07 10/07/2024 04:01:24 Urinary tract infectious disease 28122282 N39.0 Per UTI/hot dog vender protocol. UA/UC today. Health Concerns Section Related Observation LastModified by Organization Detai ls LastModified Time None Recorded Concern Status LastModified by Organization Details LastModified Time None Recorded Payers Encounter Date Sequence Insurance Name Policy Number Policy Bustamante Covered Member ID Bustamante Member ID Guarantor Name 10/02/2024 1 [place]: [facility] Suresh Martinez [id number] Suresh Martinez 10/02/2024 2 [facility] [id number] Suresh Martinez [id number] Suresh Martinez
[2024-11-16 09:23] VITALS: BP 145/75; PULSE 73; RESP 18; TEMP 36.3; O2SAT 98; BMI 22.5
--- NOTE | 2024-11-16 10:07 | ED.GENADULT ---
HPI - General Adult General Time Seen by Provider: 10:07 Date Seen: 11/16/24 Chief complaint: Constipation Stated complaint: trouble with bowels Time Seen by Provider: 11/16/24 10:04 Source: patient and RN notes reviewed Mode of arrival: ambulatory Limitations: no limitations History of Present Illness HPI narrative: This 74-year-old male is coming in with complaint of constipation. He has not had a bowel movement for maybe for 5 days now, symptoms have been problematic for about 2 weeks. He has been taking a stool softener, MiraLax and Dulcolax. He has a history of hemorrhoids and has noticed some blood in his stool. States when he does go, it will be like a hard golf ball and then he will fill the toilet. He has had no nausea or vomiting, has some lower abdominal discomfort at time. No fevers or chills. He is on Eliquis for underlying atrial fibrillation, does have a history of hemorrhoids and has not been wanting to strain. Was on the toilet this morning, attempting to go but stopped because he did not want to strain. Does feel little bloated. He has a urinary catheter in, is under treatment with Urology for urinary obstruction. He hopefully will have definitive management in January. Related Data Previous Rx's ?Medication ?Instructions ?Recorded epinephrine 0.3 mg/0.3 mL 0.3 ml IM .As Needed as needed PRN 07/03/23 injection, auto-injector anaphylaxis #2 ea diltiazem HCl 60 mg 60 mg PO BID #60 caps 09/01/24 capsule,extended release 12 hr atorvastatin 40 mg tablet 40 mg PO HS #90 tabs 09/28/24 glipizide 10 mg tablet, extended 10 mg PO DAILY #90 tabs 09/28/24 release 24 hr lisinopril 10 mg tablet 10 mg PO DAILY #90 tabs 09/28/24 metformin 500 mg tablet,extended 1,000 mg (2 x 500 mg) PO QDAY #180 09/28/24 release 24 hr tabs apixaban 5 mg tablet (Eliquis) 5 mg PO BID #60 tabs 11/12/24 peg 3350-electrolytes 236 240 ml PO Q10M #4,000 mL 11/16/24 gram-22.74 gram-6.74 gram-5.86 gram solution (Golytely) Allergies Allergy/AdvReac Type Severity Reaction Status Date / Time bee venom protein (honey bee) Allergy Verified 11/16/24 09:29 Penicillins Allergy Verified 11/16/24 09:29 tamsulosin (From Flomax) AdvReac Intermediate orthostatic Verified 11/16/24 09:29 hypotension Review of Systems Narrative: As per HPI. [facility] Medical History Stenosis of right carotid artery (01/03/21) ?I65.21 - Occlusion and stenosis of right carotid artery (ICD-10) Hypercholesterolemia (04/18/15) ?E78.00 - Pure hypercholesterolemia, unspecified (ICD-10) Hematuria (04/18/15) ?R31.9 - Hematuria, unspecified (ICD-10) Benign neoplasm of colon (05/28/07) ?D12.6 - Benign neoplasm of colon, unspecified (ICD-10) Anaphylactic reaction to bee sting (04/18/15) ?T63.441A - Toxic effect of venom of bees, accidental (unintentional), initial encounter (ICD-10) ?T78.2XXA - Anaphylactic shock, unspecified, initial encounter (ICD-10) Allergic rhinitis (12/11/05) ?J30.9 - Allergic rhinitis, unspecified (ICD-10) Atrial fibrillation ?I48.91 - Unspecified atrial fibrillation (ICD-10) Hyponatremia ?E87.1 - Hypo-osmolality and hyponatremia (ICD-10) Chronic hyponatremia ?E87.1 - Hypo-osmolality and hyponatremia (ICD-10) Right lumbar radiculopathy ?M54.16 - Radiculopathy, lumbar region (ICD-10) Leukocytosis ?D72.829 - Elevated white blood cell count, unspecified (ICD-10) Lumbar radiculopathy ?M54.16 - Radiculopathy, lumbar region (ICD-10) Chronic low back pain ?M54.50 - Low back pain, unspecified (ICD-10) ?G89.29 - Other chronic pain (ICD-10) Cerebrovascular accident (CVA) (07/2020) ?I63.9 - Cerebral infarction, unspecified (ICD-10) Bladder cancer (2013) ?C67.9 - Malignant neoplasm of bladder, unspecified (ICD-10) Allergic to bees ?Z91.030 - Bee allergy status (ICD-10) Adenomatous polyp of colon ?D12.6 - Benign neoplasm of colon, unspecified (ICD-10) Gout ?M10.9 - Gout, unspecified (ICD-10) Hypertension ?I10 - Essential (primary) hypertension (ICD-10) Diabetes mellitus ?E11.9 - Type 2 diabetes mellitus without complications (ICD-10) Abnormal gait ?R26.9 - Unspecified abnormalities of gait and mobility (ICD-10) Surgical History History of amputation of toe ?Z89.429 - Acquired absence of other toe(s), unspecified side (ICD-10) History of colonoscopy ?Z98.890 - Other specified postprocedural states (ICD-10) History of tonsillectomy (1969) ?Z90.89 - Acquired absence of other organs (ICD-10) History of right-sided carotid endarterectomy ?Z98.890 - Other specified postprocedural states (ICD-10) Social History Narrative: SOCIAL HISTORY: He is single. Retired. One daughter living in [facility] that he does not see much. No longer working at [employer]. No longer working for the [employer]. 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 Code status is full. He does not want prolonged life support. His nephew, Adrien Araiza, of [place] is [facility] power of associate attorney HABITS: Sporadic walking for exercise. Sporadic smoking in the past. He denies smoking at this point. No alcohol or recreational drug use. FAMILY HISTORY: No changes. Parents both . He did not know them well. Father around 80 of unknown cause. Mother around 70 of unknown cancer. Three sisters all living with borderline diabetes otherwise healthy. What is your current living situation?: I presently have a place to live Problems where you live: no known problems Problems where you live details: N/A In the past 12 months, utilities in danger of being shut off: no In past 12 months, lack of transportation kept you from medical appts, meetings, work, or getting things needed for daily living: no In the past 12 mos, have been you worried that your food would run out before you had money to buy more?: never true In the past 12 mos, the food you bought just didn't last and you didn't have money to buy more?: never true Highest level of school completed/degree received: high school graduate Smoking Status: Former smoker What tobacco products do you use: cigarettes Smoking quit date/years: <= 15 years ago Do you use any of these nicotine containing products: None Second hand tobacco smoke exposure: No How often do you have a drink containing alcohol: never AUDIT-C Alcohol total score: 0 Non-prescribed substance use: marijuana (any form) How often does anyone, including family, friends and others, physically hurt you: never How often does anyone, including family, friends and others, insult or talk down to you: never How often does anyone, including family, friends and others, threaten you with harm: never How often does anyone, including family, friends and others, scream or curse at you: never service: Yes Exam Const: Vital Signs, click to edit/add: Vital Signs - 24 hr 11/16/24 09:23 Temperature 97.3 F L Pulse Rate [Left P ulse Oximeter] 73 Respiratory Rate 18 Blood Pressure [Ri ght Upper Arm] 145/75 H Pulse Oximetry 98 Oxygen Delivery Me thod Room Air This 74-year-old male is alert, interactive, no apparent distress. He has urinary catheter in draining to a bag. Sclera clear, speaking in complete sentences. Breathing easily on room air, lungs clear. CV is still enough that it sounds regular, during the time I was auscultating his heart, sounded mostly regular, no murmur. Abdomen is flat, no significant distension that I appreciate, bowel sounds are active. He has no organomegaly noted, nontender. Inspection of his anus reveals no hemorrhoids, normal appearing tissue. Documenting provider has reviewed patient's vital signs: yes Course Course ED Course: We will look at a flat and upright on this patient. It sounds like this is typical constipation. Will see what the imaging shows. Clinically on examination he seems to not have any concerning physical stigmata of acute surgical abdomen. May need to consider something like and Enemeez or bowel cleanout for him. Will consider doing labs and advanced CT imaging if anything indicated based on his abdominal series with plain x-ray. Reevaluation(s) Time of Reevaluation #1: 10:51 Reevaluation #1: Reviewed with Wong that I do see significant constipation but no evidence definitive obstruction a my preliminary review. I have ordered an Enemeez. We discussed that he will likely need to do a bowel cleanout with some GoLYTELY at home. He does a colonoscopy every 5 years and is well-versed in this. I do want to make sure that we do some work from below as well here. With the stool buildup, do think he is going to have to do a bowel clean out. Still need to wait radiology over read of his imaging too. Time of Reevaluation #2: 11:36 Reevaluation #2: Patient has had good results with Enemeez, is feeling better. Will have him complete bowel clear out with GoLYTELY as planned. He will discharge to home at this time. Vital Signs Vital signs: Initial Vital Signs Temperature 97.3 F L 11/16/24 09:23 Temperature Source Temporal Artery Scan 11/16/24 09:23 Pulse Rate 73 11/16/24 09:23 Respiratory Rate 18 11/16/24 09:23 Blood Pressure 145/75 H 11/16/24 09:23 Blood Pressure Mean 98 11/16/24 09:23 Blood Pressure Position Sitting 11/16/24 09:23 Pulse Oximetry 98 11/16/24 09:23 Oxygen Delivery Method Room Air 11/16/24 09:23 Vital Signs Temperature 97.3 F L 11/16/24 09:23 Pulse Rate 73 11/16/24 09:23 Respiratory Rate 18 11/16/24 09:23 Blood Pressure 145/75 H 11/16/24 09:23 Pulse Oximetry 98 11/16/24 09:23 Oxygen Delivery Method Room Air 11/16/24 09:23 Temperature 97.3 F L 11/16/24 09:23 Pulse Rate 73 11/16/24 09:23 Respiratory Rate 18 11/16/24 09:23 Blood Pressure 145/75 H 11/16/24 09:23 Pulse Oximetry 98 11/16/24 09:23 Oxygen Delivery Method Room Air 11/16/24 09:23 Medications Administered Medications: Discontinued Medications Generic Name Dose Route Start Last Admin Trade Name Saman PRN Reason Stop Dose Admin Docusate Sodium/Benzocaine 5 ml 11/16/24 10:51 11/16/24 11:19 Docusate Sodium/Benzocaine 5 Ml Enema HI 11/16/24 10:52 5 ml ONCE ONE Administration Medical Decision Making Imaging Data Abdominal x-ray: Attestation: I have reviewed the pertinent imaging results. My impression: Definite stool buildup throughout the colon but no evidence obstruction, no air-fluid levels on my preliminary review. Radiologist's impression: Patient: WONG MOLINA Facility:[facility] Patient ID:?[id number] Site Patient ID:?[id number]. Site :?[id number] Study:?XRay-Abdomen 2V-11/16/2024 10:48:23 AM Ordering Physician:?Mari Stanley Final Report: Indication: constipation, discomfort Technique: Abdomen 2 view. Comparison: 09/23/2024 Findings: Vascular calcifications. Moderate stool in the colon. Psoas margins maintained. No pleural effusion. No dilated small bowel loops. Impression: Moderate colonic stool. No mechanical bowel obstruction. Dictated by Jony Ramirez MD @ 11/16/2024 10:56:18 AM (Electronic Signature) Discharge Plan Discharge Clinical Impression: Acute constipation Patient Disposition: Home, Self-Care Condition: Stable Instructions: Constipation (ED), High Fiber Diet (ED) Additional Instructions: Start the GoLYTELY today if possible; if not able to start today, start tomorrow morning. Take the GoLYTELY in tell you have cleaned her bowels out, our passing liquid that is clear appearing. Can stop using the GoLYTELY once you have clean the stool out. Would recommend clear liquid diet through this process. Can stay on MiraLax 17 g daily, use daily stool softener. Would recommend that you schedule a follow-up with your primary care provider to go over constipation and have a follow-up visit after this ED visit. Have provided a handout for appropriate fiber diet with constipation. It is also important to stay adequately hydrated and drink enough fluids to help with constipation. If you develop significant abdominal pain, vomiting with constipation, fever associated with abdominal pain or vomiting, do recommend returning to the ER in the interim. Activity Level: Activity as Tolerated Prescriptions: New peg 3350-electrolytes [Golytely] 236-22.74-6.74 -5.86 gram recon soln 240 ml PO Q10M Qty: 4000 0RF Rx Instructions: until fecal effluent is clear No Action atorvastatin 40 mg tablet 40 mg PO HS Qty: 90 3RF glipizide 10 mg tablet extended release 24hr 10 mg PO DAILY Qty: 90 3RF lisinopril 10 mg tablet 10 mg PO DAILY Qty: 90 3RF metformin 500 mg tablet extended release 24 hr 1,000 mg PO QDAY Qty: 180 3RF epinephrine 0.3 mg/0.3 mL auto-injector 0.3 ml IM .As Needed as needed PRN (Reason: anaphylaxis) Qty: 2 0RF diltiazem HCl 60 mg capsule,extended release 12 hr 60 mg PO BID Qty: 60 2RF Eliquis 5 mg tablet 5 mg PO BID Qty: 60 10RF Follow Up/Referrals: Santi Juarez MD [Primary Care Provider] - Stand Alone Forms: MyHealth Info Instructions
--- NOTE | 2024-11-16 10:17 | CRLHL7_ITS ---
For Patients: As a result of the Century Cures Act, medical imaging exams and procedure reports are released immediately into your electronic medical record. You may view this report before your referring provider. If you have questions, please contact your health care provider. Indication: constipation, discomfort Technique: Abdomen 2 view. Comparison: 09/23/2024 Findings: Vascular calcifications. Moderate stool in the colon. Psoas margins maintained. No pleural effusion. No dilated small bowel loops. Impression: Moderate colonic stool. No mechanical bowel obstruction. Dictated by Jony Ramirez MD @ 11/16/2024 10:56:18 AM (Electronically Signed)
--- OUTSIDE RECORDS SUMMARY | 2024-11-16 10:45 | XMS_ITS | Clinical Summary ---
Author Organization [facility] Address [address] [place] [address] Care Team Providers Care Construction Grip Name Role Phone Guero Hutchinson MD Primary [...] on file Legal Sex Male 3:05 AM OFFENSIVE COORDINATOR Gender Identity Not on file Sexual Orientation Not on file Last Filed Vital Signs Vital Sign Reading Time Taken Comments Blood Pressure 122/78 09/10/2017 9:11 AM OFFENSIVE COORDINATOR Pulse 70 09/10/2017 9:11 AM OFFENSIVE COORDINATOR Temperature 36.7 C (98 F) 03/26/2013 9:28 AM CDT Respiratory Rate 18 03/26/2013 9:28 AM CDT Oxygen Saturation 98% 03/26/2013 9:28 AM CDT Inhaled Oxygen Concentration - - Weight 106.6 kg (235 lb) 09/10/2017 9:11 AM OFFENSIVE COORDINATOR Height 188 cm (6' 2) 09/10/2017 9:11 AM OFFENSIVE COORDINATOR Body Mass Index 30.17 09/10/2017 9:11 AM OFFENSIVE COORDINATOR Plan of Treatment Not on file Insurance MEDICARE Care Teams Construction Grip Relationship Specialty Start Date End Date Guero Hutchinson MD [id number] [place] [id number] [place] [id number] PCP - General Urology 11/14/15
--- OUTSIDE RECORDS SUMMARY | 2024-11-16 10:45 | XMS_ITS | Clinical Summary ---
Author Organization [facility] Address [address] [place] [id number] Care Team Providers Care Security Officers And Guards Name Role Phone Santi Juarez MD Primary Care Provider [phone] Allergies Active Allergy Reactions Criticality Noted Date [...] Description 11/05/2024 10:30 AM CDT Office Visit [facility] [address] [place] [address] Adrien Suarez MD Arrived 10/08/2024 3:37 PM OVERLOCK OPERATOR Anesthesia Event [address] [address] Cecilia Patel MD Wagner, Stephen Robert, MD 10/08/2024 3:25 PM OVERLOCK OPERATOR - 10/08/2024 5:03 PM OVERLOCK OPERATOR Surgery [address] [address] Marcia Epstein MD CYSTOSCOPY, CLOT EVACUATION, FULGURATION 10/06/2024 2:08 PM OVERLOCK OPERATOR - 10/10/2024 12:06 PM OVERLOCK OPERATOR Hospital Encounter [address] [address] s, U Hospitalist Abhi Young MD Atrial fibrillation, unspecified type (HC) (Primary Dx); Benign prostatic hyperplasia with lower urinary tract symptoms, symptom details unspecified Discharge Disposition: Home Self Care 10/06/2024 Travel 09/24/2024 Transcribe Orders [facility] [address] [place] [address] Doug Dia MD 09/23/2024 Transcribe Orders Customer Experience [facility] [phone] Shaun Baer MD 08/28/2024 3:00 PM OVERLOCK OPERATOR Ancillary Procedure [facility] [address] [facility] [place] [address] 08/27/2024 Telephone [facility] [address] [place] [address] Harvey Gonzalez MD from Last 3 Months [...] on file Legal Sex Male 7:26 PM OVERLOCK OPERATOR Gender Identity Not on file Sexual Orientation Not on file Obstetrics History Last Filed Vital Signs Vital Sign Reading Time Taken Comments Blood Pressure 144/66 10/10/2024 7:21 AM OVERLOCK OPERATOR Pulse 58 10/10/2024 7:21 AM OVERLOCK OPERATOR Temperature 36.4 C (97.5 F) 10/10/2024 7:21 AM OVERLOCK OPERATOR Respiratory Rate 17 10/10/2024 7:21 AM OVERLOCK OPERATOR Oxygen Saturation 96% 10/10/2024 7:21 AM OVERLOCK OPERATOR Inhaled Oxygen Concentration - - Weight 73.9 kg (163 lb) 10/09/2024 5:08 AM OVERLOCK OPERATOR Height 188 cm (6' 2) 10/09/2024 5:08 AM OVERLOCK OPERATOR Body Mass Index 20.93 10/09/2024 5:08 AM OVERLOCK OPERATOR Plan of Treatment Health Maintenance Due Date [...] Completed 12/09/2020 Medical Devices Implanted Type Area [employer] Developer Device Identifier Shelf Expiration Date Model / Serial / Lot Tissue Pericardium 0.8x8cm Xenosure - [id number] Implanted:Qty: 1 on 01/03/2021 by Warren Peña MD at [facility] Right: Carotid Artery [employer] 08/08/2026 0.8P8 / / [id number] Procedures Procedure Name Priority Date/Time Associated Diagnosis Comments HEMOGLOBIN Early AM 10/10/2024 7:27 AM OVERLOCK OPERATOR GLUCOSE METER Timed 10/10/2024 7:23 AM OVERLOCK OPERATOR GLUCOSE METER Timed 10/09/2024 9:12 PM OVERLOCK OPERATOR GLUCOSE METER Timed 10/09/2024 4:48 PM OVERLOCK OPERATOR GLUCOSE METER Timed 10/09/2024 11:35 AM OVERLOCK OPERATOR GLUCOSE METER Timed 10/09/2024 6:42 AM OVERLOCK OPERATOR HEMOGLOBIN Timed 10/09/2024 6:38 AM OVERLOCK OPERATOR GLUCOSE METER Timed 10/08/2024 9:08 PM OVERLOCK OPERATOR HEMOGLOBIN Timed 10/08/2024 6:56 PM OVERLOCK OPERATOR GLUCOSE METER Timed 10/08/2024 6:40 PM OVERLOCK OPERATOR EKG 12 LEAD STAT 10/08/2024 6:34 PM OVERLOCK OPERATOR GLUCOSE METER Timed 10/08/2024 5:51 PM OVERLOCK OPERATOR GLUCOSE METER Timed 10/08/2024 4:43 PM OVERLOCK OPERATOR SUPRAGLOTTIC-LMA Routine 10/08/2024 4:09 PM OVERLOCK OPERATOR CYSTOSCOPY EVACUATION BLADDER CLOTS 10/08/2024 3:27 PM OVERLOCK OPERATOR Gross hematuria GLUCOSE METER Timed 10/08/2024 3:20 PM OVERLOCK OPERATOR GLUCOSE METER Timed 10/08/2024 11:50 AM OVERLOCK OPERATOR SCAN CORRESP-LABORATORY RESULTS 10/08/2024 10:55 AM OVERLOCK OPERATOR GLUCOSE METER Timed 10/08/2024 6:37 AM OVERLOCK OPERATOR HEMOGLOBIN Early AM 10/08/2024 6:04 AM OVERLOCK OPERATOR GLUCOSE METER Timed 10/07/2024 11:53 PM OVERLOCK OPERATOR GLUCOSE METER Timed 10/07/2024 9:08 PM OVERLOCK OPERATOR GLUCOSE METER Timed 10/07/2024 5:14 PM OVERLOCK OPERATOR US RENAL AND BLADDER COMPLETE TYLER 10/07/2024 12:04 PM OVERLOCK OPERATOR GLUCOSE METER Timed 10/07/2024 11:34 AM OVERLOCK OPERATOR GLUCOSE METER Timed 10/07/2024 8:07 AM OVERLOCK OPERATOR HEMOGLOBIN Timed 10/07/2024 6:45 AM OVERLOCK OPERATOR HEMOGLOBIN Timed 10/06/2024 11:29 PM OVERLOCK OPERATOR GLUCOSE METER Timed 10/06/2024 9:13 PM OVERLOCK OPERATOR GLUCOSE METER Timed 10/06/2024 5:11 PM OVERLOCK OPERATOR TYPE & SCREEN Today 10/06/2024 4:12 PM OVERLOCK OPERATOR BASIC METABOLIC PANEL Today 10/06/2024 4:12 PM OVERLOCK OPERATOR PLATELET COUNT Today 10/06/2024 4:12 PM OVERLOCK OPERATOR HEMOGLOBIN Timed 10/06/2024 4:12 PM OVERLOCK OPERATOR HEMOGLOBIN A1C MONITORING (POCT) Today 10/06/2024 4:12 PM OVERLOCK OPERATOR SCAN-CARDIAC STRIP 10/06/2024 12 :00 AM OVERLOCK OPERATOR ECHO TTE COMPLETE WO CONTRAST Routine 08/28/2024 1:07 PM OVERLOCK OPERATOR New onset a-fib (HC) COLONOSCOPY 04/03/2023 9:22 AM CDT US ABD AORTA SCREENING Routine 12/09/2020 9:28 AM CDT HTN (hypertension) from Last 3 Months or Most Recently Relevant to Health Maintenance Results * (ABNORMAL) HEMOGLOBIN (10/10/2024 7:27 AM OVERLOCK OPERATOR) Only the most recent of7 resultswithin the time period is included. HEMOGLOBIN 8.3(L) 13.5 - 17.5 g/dL 10/10/2024 7:41 AM OVERLOCK OPERATOR [facility] MCV 84 80 - 100 fL 10/10/2024 7:41 AM OVERLOCK OPERATOR [facility] Blood BLOOD SPECIMEN / Unknown Venipuncture / Unknown 10/10/2024 7:27 AM OVERLOCK OPERATOR 10/10/2024 7:36 AM OVERLOCK OPERATOR Abhi Vogel MD HEMATOLOGY Final Re sult [facility] SENDOUT INTERNAL ZIP [id number] [place] [address] * (ABNORMAL) GLUCOSE METER (10/10/2024 7:23 AM OVERLOCK OPERATOR) Only the most recent of19 resultswithin the time period is included. GLUCOSE METER 166(H) 65 - 100 mg/dL 10/10/2024 7:27 AM OVERLOCK OPERATOR [facility] Blood BLOOD SPECIMEN / Unknown 10/10/2024 7:23 AM OVERLOCK OPERATOR 10/10/2024 7:27 AM OVERLOCK OPERATOR Abhi Vogel MD CHEMISTRY Final Re sult [facility] SENDOUT INTERNAL ZIP [id number] [address] [place] [address] * 12 Lead EKG - PRN (10/08/2024 6:34 PM OVERLOCK OPERATOR) Interpretation Normal sinus rhythm Anterior infarct , [...] NOW QTc 410 ms BEYOND NOW P [place] 100 degrees BEYOND NOW R [place] -4 degrees BEYOND NOW T [place] -7 degrees BEYOND NOW 10/08/2024 6:34 PM OVERLOCK OPERATOR 10/09/2024 8:13 AM OVERLOCK OPERATOR Abhi Vogel MD EKG ORD Final Re sult Performing Organization Address City/[facility]/ZIP Co de Phone Number [place] NOW [place], [place] * HCHG MASK PR5 (10/08/2024 4:09 PM OVERLOCK OPERATOR) Narrative Luís Khalil CRNA - 10/08/2024 4:09 PM OVERLOCK OPERATOR Luís Khalil CRNA 10/08/2024 4:09 PM Procedure: [...] * SCAN CORRESP-LABORATORY RESULTS (10/08/2024 10:55 AM OVERLOCK OPERATOR) Narrative 10/08/2024 10:55 AM OVERLOCK OPERATOR Ordered by an unspecified provider. us Other Clinical Staff OTHER Final Resul t * US RENAL AND BLADDER COMPLETE (10/07/2024 12:04 PM OVERLOCK OPERATOR) Anatomical Region Laterality Modality Abdomen, AORTA, KIDNEYS Ultrasou nd 10/07/2024 12:0 4 PM OVERLOCK OPERATOR Impressions 10/07/2024 12:12 PM OVERLOCK OPERATOR 1. Normal kidney ultrasound. 2. Decompressed urinary bladder with Fragoso catheter in place. Narrative 10/07/2024 12:12 PM OVERLOCK OPERATOR For Patients: As a result of the [...] EXAM: US RENAL AND BLADDER COMPLETE LOCATION: [facility] DATE: 10/07/2024 INDICATION: Hematuria COMPARISON: [...] * TYPE & SCREEN (10/06/2024 4:12 PM OVERLOCK OPERATOR) ABORH AB Rh Positive 10/06/2024 5:21 PM OVERLOCK OPERATOR [facility] ANTIBODY SCREEN Negative Negative 10/06/2024 5:21 PM OVERLOCK OPERATOR [facility] SPECIMEN EXPIRATION DATE/TIME 10/09/24 23:59 10/06/2024 5:21 PM OVERLOCK OPERATOR [facility] Blood BLOOD SPECIMEN / Unknown Venipuncture / Unknown 10/06/2024 4:12 PM OVERLOCK OPERATOR 10/06/2024 4:27 PM OVERLOCK OPERATOR Abhi Vogel MD BLOOD BANK Final Re sult [facility] [address] [place] [address] * PLATELET COUNT (10/06/2024 4:12 PM OVERLOCK OPERATOR) PLATELET COUNT 224 140 - 440 thou/cu mm 10/06/2024 4:29 PM OVERLOCK OPERATOR [facility] MPV 10.0 6.5 - 11.0 fL 10/06/2024 4:29 PM OVERLOCK OPERATOR [facility] Blood BLOOD SPECIMEN / Unknown Venipuncture / Unknown 10/06/2024 4:12 PM OVERLOCK OPERATOR 10/06/2024 4:27 PM OVERLOCK OPERATOR Abhi Vogel MD HEMATOLOGY Final Re sult [facility] SENDOUT INTERNAL ZIP [id number] [place] [address] * Hemoglobin A1C (10/06/2024 4:12 PM OVERLOCK OPERATOR) HEMOGLOBIN A1C MONITORING (POCT) 6.3 <=6.4 % 10/06/2024 6:05 PM OVERLOCK OPERATOR [facility] Blood BLOOD SPECIMEN / Unknown Venipuncture / Unknown 10/06/2024 4:12 PM OVERLOCK OPERATOR 10/06/2024 4:27 PM OVERLOCK OPERATOR Narrative [facility] - 10/06/2024 6:05 PM OVERLOCK OPERATOR (<=6.9%) Indicates good control (7.0% to 7.9%) Indicates fair control (>=8.0%) Indicates poor control NOTE: These thresholds are guidelines and individual targets may vary. Falsely low levels may be seen with: Recent Transfusion, Recent Significant Blood Loss, Hemolytic Diseases, or Falsely elevated levels may be seen with: Untreated Anemias, Splenectomy Abhi Vogel MD CHEMISTRY Final Re sult [facility] SENDOUT INTERNAL ZIP [id number] [place] [address] * (ABNORMAL) BASIC METABOLIC PANEL (10/06/2024 4:12 PM OVERLOCK OPERATOR) SODIUM 134(L) 136 - 145 mmol/L 10/06/2024 4:[address] [facility] POTASSIUM 3.9 3.5 - 5.1 mmol/L 10/06/2024 4:[address] [facility] CHLORIDE 100 98 - 107 mmol/L 10/06/2024 4:[address] [facility] CO2,TOTAL 24 22 - 29 mmol/L 10/06/2024 4:[address] [facility] ANION GAP 10 5 - 18 10/06/2024 4:[address] [facility] GLUCOSE 125(H) 70 - 99 mg/dL 10/06/2024 4:[address] [facility] CALCIUM 8.8 8.8 - 10.4 mg/dL 10/06/2024 4:[address] [facility] Comment: Reference ranges for this test were updated on 06/16/2024 to reflect our healthy population more accurately. Reference range changes are not retroactively applied to results, but previous results using the same methodology can be interpreted in the context of the new reference range. BUN 17 8 - 23 mg/dL 10/06/2024 4:[address] [facility] CREATININE 0.76 0.70 - 1.20 mg/dL 10/06/2024 4:[address] [facility] BUN/CREAT RATIO 22(H) 10 - 20 4:[address] [facility] eGFR >90 >90 mL/min/1. 73m2 10/06/2024 4:[address] [facility] Comment:As of 2021, eG FR is calculated by the CKD-EPI creatinine equation without race adjustment. eGFR can be influenced by muscle mass, exercise, and diet. The reported eGFR is an estimation only and is only applicable if the renal function is stable. Blood BLOOD SPECIMEN / Unknown Venipuncture / Unknown 10/06/2024 4:12 PM OVERLOCK OPERATOR 10/06/2024 4:27 PM OVERLOCK OPERATOR us Abhi Vogel MD CHEMISTRY Final Re sult [facility] SENDOUT INTERNAL ZIP [id number] [address] [place] [address] * SCAN-CARDIAC STRIP (10/06/2024 12:00 AM OVERLOCK OPERATOR) Narrative 10/06/2024 12:00 AM OVERLOCK OPERATOR Ordered by an unspecified provider. us Other Clinical Staff OTHER Final Resul t * ECHO TTE COMPLETE WO CONTRAST (08/28/2024 1:07 PM OVERLOCK OPERATOR) AORTIC VALVE MEAN PG 5 mmHg EJECTION FRACTION 67 % PEAK TR VELOCITY 2.7 m/s LVEDD 3.8 cm EJECTION FRACTION 60 - 65% Anatomical Region Laterality Modality Ultrasound 08/28/2024 10:4 4 AM OVERLOCK OPERATOR Narrative 08/28/2024 1:14 PM OVERLOCK OPERATOR ECHOCARDIOGRAM SURESH MOLINA : 1950 74 years Study Date: 08/28/2024 10:44:58 AM Gender: M BP: 179/93 mmHg Height: 188.00 cm BSA: 2.10 m Weight: 84.00 kg Tech: SEN Referring MD: LEOPOLDO MUÑIZ Site: [facility] Reading Location: Mobile-IP Patient [...] . This study was interpreted by an [facility] accredited facility. CC: HIM (med records) [facility], Med/Surg - IP [facility]. Final Procedure Note Jony Donato MD - 08/28/2024 ECHOCARDIOGRAM SURESH MOLINA : 1950 74 years Study Date: 08/28/2024 10:44:58 AM Gender: M BP: 179/93 mmHg Height: 188.00 cm BSA: 2.10 m Weight: 84.00 kg Tech: SEN Referring MD: LEOPOLDO MUÑIZ Site: [facility] Reading Location: Mobile-IP Patient [...] [facility]AC accredited facility. CC: HIM (med records) [facility], Med/Surg - IP [facility]. Final us Leopoldo Muñiz PA ECHO ORD [...] candidate for conscious sedation. The endoscope [id number] was passed through the anus andadvanced to [...] 9:22 AM Procedure Code(s): --- Professional --- 83386, Colonoscopy, flexible; with removalof tumor(s), polyp(s), or other lesion(s) bysnare technique Diagnosis Code(s): --- Professional --- Z86.010, Personal history of colonicpolyps D12.2, Benign neoplasm of ascending colon K57.30, Diverticulosis of large intestine without perforation or abscess withoutbleeding CPT copyright 2021 [employer]. All rights reserved. The codes documented in this report are preliminary and upon flight engineer manager reviewmay be revised to meet current [...] Elo Juarez Gender: M Referring MD: WARREN EPÑA Site: [facility] Study performed: Iliac, (bilateral) [...] study was performed and interpreted by [facility], a service accredited by the [employer]ocietal Accreditation Commission (IAC/Vascular), www.intersocietal.org/vascular Report generated by [email or web address]. Final Procedure Note Valdemar Sandoval MD - 12/10/2020 VASCULAR ULTRASOUND REPORT SURESH MOLINA : 1950 Study Date: 12/09/2020 9:05:56 AM Age: 70 years Tech: Elo Juarez Gender: M Referring MD: WARREN PEÑA Site: [facility] Study performed: Iliac, (bilateral) [...] This study was performed and interpreted by [facility], a service accredited by the Intersocietal Accreditation Commission (IAC/Vascular),www.intersocietal.org/vascular Report generated by [email or web address]. Final us Warren Peña MD Fi nal Result from Last 3 Months or Most Recently Relevant to Health Maintenance Insurance PREFERRED [facility] MEDICARE PART B HB ONLY [facility] MEDICARE [place] ONLY MEDICARE PART A HB ONLY Advance Directives * Full Code (Latest Code Status on File) Date Activated Date Inactivated Comments 10/06/2024 2:51 PM 10/10/2024 2:11 PM Question Answer Comments Code Status Discussion: Reviewed Preferences * Full Code Date Activated Date Inactivated Comments 01/03/2021 6:00 AM 01/04/2021 1:54 PM Question Answer Comments Code Status Discussion: Not Discussed Care Teams Security Officers And Guards Relationship Specialty Start Date End Date Santi Juarez MD [address] [place] [address] PCP - General Family Practice 12/07/20
[2024-11-16] MEDS: DOCUSATE SODIUM/BENZOCAINE 5 ML ENEMA PR (11:19)
== END 2024-11-16 11:50 | disposition home or self-care (01) ==
PROVIDERS: Emergency Provider Family Medicine; PCP Family Medicine
DX: R31.0 Gross hematuria (principal)
CPT/HCPCS: 74019; 99283; A9270

== ENCOUNTER 2024-11-16 15:56 | Emergency (ER) | payer MEDICARE, BC, SELFPAY ==
--- OUTSIDE RECORDS SUMMARY | 2024-11-16 15:59 | XMS_ITS | Clinical Summary ---
Author Organization [employer] [facility] Address [address] [place] [address] Care Team Providers Care Product Support Consultant Name Role Phone Santi Juarez MD Primary Care Provider [phone] Allergies Active Allergy Reactions Criticality Noted Date [...] Description 11/05/2024 10:30 AM CDT Office Visit [facility] [address] [place] [address] Adrien Suarez MD Arrived 10/08/2024 3:37 PM FINISH INSPECTOR Anesthesia Event [address] [address] Cecilia Patel MD Wagner, Stephen Robert, MD 10/08/2024 3:25 PM FINISH INSPECTOR - 10/08/2024 5:03 PM FINISH INSPECTOR Surgery [address] [address] Marcia Epstein MD CYSTOSCOPY, CLOT EVACUATION, FULGURATION 10/06/2024 2:08 PM FINISH INSPECTOR - 10/10/2024 12:06 PM FINISH INSPECTOR Hospital Encounter [address] [address] s, U Hospitalist Abhi Young MD Atrial fibrillation, unspecified type (HC) (Primary Dx); Benign prostatic hyperplasia with lower urinary tract symptoms, symptom details unspecified Discharge Disposition: Home Self Care 10/06/2024 Travel 09/24/2024 Transcribe Orders [facility] [address] [place] [address] Doug Dia MD 09/23/2024 Transcribe Orders Customer Experience [facility] [phone] Shaun Baer MD 08/28/2024 3:00 PM FINISH INSPECTOR Ancillary Procedure [facility] [address] [facility] [place] [address] 08/27/2024 Telephone [facility] [address] [place] [address] Harvey Gonzalez MD from Last 3 Months [...] on file Legal Sex Male 7:26 PM FINISH INSPECTOR Gender Identity Not on file Sexual Orientation Not on file Obstetrics History Last Filed Vital Signs Vital Sign Reading Time Taken Comments Blood Pressure 144/66 10/10/2024 7:21 AM FINISH INSPECTOR Pulse 58 10/10/2024 7:21 AM FINISH INSPECTOR Temperature 36.4 C (97.5 F) 10/10/2024 7:21 AM FINISH INSPECTOR Respiratory Rate 17 10/10/2024 7:21 AM FINISH INSPECTOR Oxygen Saturation 96% 10/10/2024 7:21 AM FINISH INSPECTOR Inhaled Oxygen Concentration - - Weight 73.9 kg (163 lb) 10/09/2024 5:08 AM FINISH INSPECTOR Height 188 cm (6' 2) 10/09/2024 5:08 AM FINISH INSPECTOR Body Mass Index 20.93 10/09/2024 5:08 AM FINISH INSPECTOR Plan of Treatment Health Maintenance Due Date [...] Completed 12/09/2020 Medical Devices Implanted Type Area Customer Care Manager Device Identifier Shelf Expiration Date Model / Serial / Lot Tissue Pericardium 0.8x8cm Xenosure - [id number] Implanted:Qty: 1 on 01/03/2021 by Warren Peña MD at [facility] Right: Carotid Artery [employer] 08/08/2026 0.8P8 / / [id number] Procedures Procedure Name Priority Date/Time Associated Diagnosis Comments HEMOGLOBIN Early AM 10/10/2024 7:27 AM FINISH INSPECTOR GLUCOSE METER Timed 10/10/2024 7:23 AM FINISH INSPECTOR GLUCOSE METER Timed 10/09/2024 9:12 PM FINISH INSPECTOR GLUCOSE METER Timed 10/09/2024 4:48 PM FINISH INSPECTOR GLUCOSE METER Timed 10/09/2024 11:35 AM FINISH INSPECTOR GLUCOSE METER Timed 10/09/2024 6:42 AM FINISH INSPECTOR HEMOGLOBIN Timed 10/09/2024 6:38 AM FINISH INSPECTOR GLUCOSE METER Timed 10/08/2024 9:08 PM FINISH INSPECTOR HEMOGLOBIN Timed 10/08/2024 6:56 PM FINISH INSPECTOR GLUCOSE METER Timed 10/08/2024 6:40 PM FINISH INSPECTOR EKG 12 LEAD STAT 10/08/2024 6:34 PM FINISH INSPECTOR GLUCOSE METER Timed 10/08/2024 5:51 PM FINISH INSPECTOR GLUCOSE METER Timed 10/08/2024 4:43 PM FINISH INSPECTOR SUPRAGLOTTIC-LMA Routine 10/08/2024 4:09 PM FINISH INSPECTOR CYSTOSCOPY EVACUATION BLADDER CLOTS 10/08/2024 3:27 PM FINISH INSPECTOR Gross hematuria GLUCOSE METER Timed 10/08/2024 3:20 PM FINISH INSPECTOR GLUCOSE METER Timed 10/08/2024 11:50 AM FINISH INSPECTOR SCAN CORRESP-LABORATORY RESULTS 10/08/2024 10:55 AM FINISH INSPECTOR GLUCOSE METER Timed 10/08/2024 6:37 AM FINISH INSPECTOR HEMOGLOBIN Early AM 10/08/2024 6:04 AM FINISH INSPECTOR GLUCOSE METER Timed 10/07/2024 11:53 PM FINISH INSPECTOR GLUCOSE METER Timed 10/07/2024 9:08 PM FINISH INSPECTOR GLUCOSE METER Timed 10/07/2024 5:14 PM FINISH INSPECTOR US RENAL AND BLADDER COMPLETE TYLER 10/07/2024 12:04 PM FINISH INSPECTOR GLUCOSE METER Timed 10/07/2024 11:34 AM FINISH INSPECTOR GLUCOSE METER Timed 10/07/2024 8:07 AM FINISH INSPECTOR HEMOGLOBIN Timed 10/07/2024 6:45 AM FINISH INSPECTOR HEMOGLOBIN Timed 10/06/2024 11:29 PM FINISH INSPECTOR GLUCOSE METER Timed 10/06/2024 9:13 PM FINISH INSPECTOR GLUCOSE METER Timed 10/06/2024 5:11 PM FINISH INSPECTOR TYPE & SCREEN Today 10/06/2024 4:12 PM FINISH INSPECTOR BASIC METABOLIC PANEL Today 10/06/2024 4:12 PM FINISH INSPECTOR PLATELET COUNT Today 10/06/2024 4:12 PM FINISH INSPECTOR HEMOGLOBIN Timed 10/06/2024 4:12 PM FINISH INSPECTOR HEMOGLOBIN A1C MONITORING (POCT) Today 10/06/2024 4:12 PM FINISH INSPECTOR SCAN-CARDIAC STRIP 10/06/2024 12 :00 AM FINISH INSPECTOR ECHO TTE COMPLETE WO CONTRAST Routine 08/28/2024 1:07 PM FINISH INSPECTOR New onset a-fib (HC) COLONOSCOPY 04/03/2023 9:22 AM CDT US ABD AORTA SCREENING Routine 12/09/2020 9:28 AM CDT HTN (hypertension) from Last 3 Months or Most Recently Relevant to Health Maintenance Results * (ABNORMAL) HEMOGLOBIN (10/10/2024 7:27 AM FINISH INSPECTOR) Only the most recent of7 resultswithin the time period is included. HEMOGLOBIN 8.3(L) 13.5 - 17.5 g/dL 10/10/2024 7:41 AM FINISH INSPECTOR [facility] MCV 84 80 - 100 fL 10/10/2024 7:41 AM FINISH INSPECTOR [facility] Blood BLOOD SPECIMEN / Unknown Venipuncture / Unknown 10/10/2024 7:27 AM FINISH INSPECTOR 10/10/2024 7:36 AM FINISH INSPECTOR Abhi Vogel MD HEMATOLOGY Final Re sult [facility] SENDOUT [place]NAL ZIP [phone] [place] [id number] * (ABNORMAL) GLUCOSE METER (10/10/2024 7:23 AM FINISH INSPECTOR) Only the most recent of19 resultswithin the time period is included. GLUCOSE METER 166(H) 65 - 100 mg/dL 10/10/2024 7:27 AM FINISH INSPECTOR [facility] Blood BLOOD SPECIMEN / Unknown 10/10/2024 7:23 AM FINISH INSPECTOR 10/10/2024 7:27 AM FINISH INSPECTOR Abhi Vogel MD CHEMISTRY Final Re sult [facility] SENDOUT [place] ZIP [phone] [place] [address] * 12 Lead EKG - PRN (10/08/2024 6:34 PM FINISH INSPECTOR) Interpretation Normal sinus rhythm Anterior infarct , [...] NOW QTc 410 ms BEYOND NOW P Hudson 100 degrees BEYOND NOW R Hudson -4 degrees BEYOND NOW T Hudson -7 degrees BEYOND NOW 10/08/2024 6:34 PM FINISH INSPECTOR 10/09/2024 8:13 AM FINISH INSPECTOR Abhi Vogel MD EKG ORD Final Re sult Performing Organization Address City/[facility]/ZIP Co de Phone Number [place] NOW [place], [place] * [facility] MASK PR5 (10/08/2024 4:09 PM FINISH INSPECTOR) Narrative Luís Khalil CRNA - 10/08/2024 4:09 PM FINISH INSPECTOR Luís Khalil CRNA 10/08/2024 4:09 PM Procedure: [...] * SCAN CORRESP-LABORATORY RESULTS (10/08/2024 10:55 AM FINISH INSPECTOR) Narrative 10/08/2024 10:55 AM FINISH INSPECTOR Ordered by an unspecified provider. us Other Clinical Staff OTHER Final Resul t * US RENAL AND BLADDER COMPLETE (10/07/2024 12:04 PM FINISH INSPECTOR) Anatomical Region Laterality Modality Abdomen, AORTA, KIDNEYS Ultrasou nd 10/07/2024 12:0 4 PM FINISH INSPECTOR Impressions 10/07/2024 12:12 PM FINISH INSPECTOR 1. Normal kidney ultrasound. 2. Decompressed urinary bladder with Fragoso catheter in place. Narrative 10/07/2024 12:12 PM FINISH INSPECTOR For Patients: As a result of the [...] EXAM: US RENAL AND BLADDER COMPLETE LOCATION: [facility] DATE: 10/07/2024 INDICATION: Hematuria COMPARISON: [...] * TYPE & SCREEN (10/06/2024 4:12 PM FINISH INSPECTOR) ABORH AB Rh Positive 10/06/2024 5:21 PM FINISH INSPECTOR [facility] BLOOD BANK ANTIBODY SCREEN Negative Negative 10/06/2024 5:21 PM FINISH INSPECTOR [facility] BLOOD BANK SPECIMEN EXPIRATION DATE/TIME 10/09/24 23:59 10/06/2024 5:21 PM FINISH INSPECTOR [facility] BLOOD BANK Blood BLOOD SPECIMEN / Unknown Venipuncture / Unknown 10/06/2024 4:12 PM FINISH INSPECTOR 10/06/2024 4:27 PM FINISH INSPECTOR Abhi Vogel MD BLOOD BANK Final Re sult [facility] BLOOD BANK [address] [place] [address] * PLATELET COUNT (10/06/2024 4:12 PM FINISH INSPECTOR) PLATELET COUNT 224 140 - 440 thou/cu mm 10/06/2024 4:29 PM FINISH INSPECTOR [facility] MPV 10.0 6.5 - 11.0 fL 10/06/2024 4:29 PM FINISH INSPECTOR [facility] Blood BLOOD SPECIMEN / Unknown Venipuncture / Unknown 10/06/2024 4:12 PM FINISH INSPECTOR 10/06/2024 4:27 PM FINISH INSPECTOR Abhi Vogel MD HEMATOLOGY Final Re sult [facility] SENDOUT INTERNAL ZIP [phone] [place] [id number] * Hemoglobin A1C (10/06/2024 4:12 PM FINISH INSPECTOR) HEMOGLOBIN A1C MONITORING (POCT) 6.3 <=6.4 % 10/06/2024 6:05 PM FINISH INSPECTOR [facility] Blood BLOOD SPECIMEN / Unknown Venipuncture / Unknown 10/06/2024 4:12 PM FINISH INSPECTOR 10/06/2024 4:27 PM FINISH INSPECTOR Narrative [facility] - 10/06/2024 6:05 PM FINISH INSPECTOR (<=6.9%) Indicates good control (7.0% to 7.9%) Indicates fair control (>=8.0%) Indicates poor control NOTE: These thresholds are guidelines and individual targets may vary. Falsely low levels may be seen with: Recent Transfusion, Recent Significant Blood Loss, Hemolytic Diseases, or Falsely elevated levels may be seen with: Untreated Anemias, Splenectomy Abhi Vogel MD CHEMISTRY Final Re sult [facility] SENDOUT INTERNAL ZIP [phone] [place] [address] * (ABNORMAL) BASIC METABOLIC PANEL (10/06/2024 4:12 PM FINISH INSPECTOR) SODIUM 134(L) 136 - 145 mmol/L 10/06/2024 4:49 PM [facility] POTASSIUM 3.9 3.5 - 5.1 mmol/L 10/06/2024 4:49 PM [facility] CHLORIDE 100 98 - 107 mmol/L 10/06/2024 4:49 PM [facility] CO2,TOTAL 24 22 - 29 mmol/L 10/06/2024 4:49 PM [facility] ANION GAP 10 5 - 18 10/06/2024 4:49 PM [facility] GLUCOSE 125(H) 70 - 99 mg/dL 10/06/2024 4:49 PM [facility] CALCIUM 8.8 8.8 - 10.4 mg/dL 10/06/2024 4:49 PM [facility] Comment: Reference ranges for this test were updated on 06/16/2024 to reflect our healthy population more accurately. Reference range changes are not retroactively applied to results, but previous results using the same methodology can be interpreted in the context of the new reference range. BUN 17 8 - 23 mg/dL 10/06/2024 4:49 PM [facility] CREATININE 0.76 0.70 - 1.20 mg/dL 10/06/2024 4:49 PM [facility] BUN/CREAT RATIO 22(H) 10 - 20 4:49 PM [facility] eGFR >90 >90 mL/min/1. 73m2 10/06/2024 4:49 PM [facility] Comment:As of 2021, eG FR is calculated by the CKD-EPI creatinine equation without race adjustment. eGFR can be influenced by muscle mass, exercise, and diet. The reported eGFR is an estimation only and is only applicable if the renal function is stable. Blood BLOOD SPECIMEN / Unknown Venipuncture / Unknown 10/06/2024 4:12 PM FINISH INSPECTOR 10/06/2024 4:27 PM FINISH INSPECTOR us Abhi Vogel MD CHEMISTRY Final Re sult [facility] SENDOUT [place]NAL [address]IP [id number] [place] [address] * SCAN-CARDIAC STRIP (10/06/2024 12:00 AM FINISH INSPECTOR) Narrative 10/06/2024 12:00 AM FINISH INSPECTOR Ordered by an unspecified provider. us Other Clinical Staff OTHER Final Resul t * ECHO TTE COMPLETE WO CONTRAST (08/28/2024 1:07 PM FINISH INSPECTOR) AORTIC VALVE MEAN PG 5 mmHg EJECTION FRACTION 67 % PEAK TR VELOCITY 2.7 m/s LVEDD 3.8 cm EJECTION FRACTION 60 - 65% Anatomical Region Laterality Modality Ultrasound 08/28/2024 10:4 4 AM FINISH INSPECTOR Narrative 08/28/2024 1:14 PM FINISH INSPECTOR ECHOCARDIOGRAM SURESH MOLINA : 1950 74 years Study Date: 08/28/2024 10:44:58 AM Gender: M BP: 179/93 mmHg Height: 188.00 cm BSA: 2.10 m Weight: 84.00 kg Tech: SEN Referring MD: LEOPOLDO MUÑIZ Site: [facility] Reading Location: Mobile-IP Patient [...] . This study was interpreted by an [facility] accredited facility. CC: HIM (med records) [facility], Med/Surg - IP [facility]. Final Procedure Note Jony Donato MD - 08/28/2024 ECHOCARDIOGRAM SURESH MOLINA : 1950 74 years Study Date: 08/28/2024 10:44:58 AM Gender: M BP: 179/93 mmHg Height: 188.00 cm BSA: 2.10 m Weight: 84.00 kg Tech: SEN Referring MD: LEOPOLDO MUÑIZ Site: [facility] Reading Location: Mobile-IP Patient [...] [facility]AC accredited facility. CC: HIM (med records) [facility], Med/Surg - IP [facility]. Final us Leopoldo Muñiz PA ECHO ORD [...] candidate for conscious sedation. The endoscope [id number] was passed through the anus andadvanced to [...] 9:22 AM Procedure Code(s): --- Professional --- 41938, Colonoscopy, flexible; with removalof tumor(s), polyp(s), or other lesion(s) bysnare technique Diagnosis Code(s): --- Professional --- Z86.010, Personal history of colonicpolyps D12.2, Benign neoplasm of ascending colon K57.30, Diverticulosis of large intestine without perforation or abscess withoutbleeding CPT copyright 2021 [employer]. All rights reserved. The codes documented in this report are preliminary and upon ekg monitor tech reviewmay be revised to meet current compliance [...] Gender: M Referring MD: WARREN PEÑA Site: [facility] Study performed: Iliac, (bilateral) [...] study was performed and interpreted by [facility], a service accredited by the [employer] Accreditation Commission (IAC/Vascular), www.intersocietal.org/vascular Report generated by [employer]. Final Procedure Note Valdemar Sandoval MD - 12/10/2020 VASCULAR ULTRASOUND REPORT SURESH MOLINA : 1950 Study Date: 12/09/2020 9:05:56 AM Age: 70 years Tech: Elo Juarez Gender: M Referring MD: WARREN PEÑA Site: [facility] Study performed: Iliac, (bilateral) [...] This study was performed and interpreted by [facility], a service accredited by the Intersocietal Accreditation Commission (IAC/Vascular),[email or web address].org/vascular Report generated by [employer]. Final us Warren Peña MD Fi nal Result from Last 3 Months or Most Recently Relevant to Health Maintenance Insurance PREFERRED [facility] MEDICARE PART B HB ONLY [facility] MEDICARE PB ONLY MEDICARE PART A HB ONLY Advance Directives * Full Code (Latest Code Status on File) Date Activated Date Inactivated Comments 10/06/2024 2:51 PM 10/10/2024 2:11 PM Question Answer Comments Code Status Discussion: Reviewed Preferences * Full Code Date Activated Date Inactivated Comments 01/03/2021 6:00 AM 01/04/2021 1:54 PM Question Answer Comments Code Status Discussion: Not Discussed Care Teams Product Support Consultant Relationship Specialty Start Date End Date Santi Juarez MD [address] [place] [address] PCP - General Family Practice 12/07/20
--- OUTSIDE RECORDS SUMMARY | 2024-11-16 15:59 | XMS_ITS | Clinical Summary ---
Author Organization [place] Address [address] [facility] [place] [address] Care Team Providers Care Hospice Nurse Practitioner Name Role Phone Guero Hutchinson MD Primary [...] on file Legal Sex Male 3:05 AM DATA ANALYSIS ASSISTANT Gender Identity Not on file Sexual Orientation Not on file Last Filed Vital Signs Vital Sign Reading Time Taken Comments Blood Pressure 122/78 09/10/2017 9:11 AM DATA ANALYSIS ASSISTANT Pulse 70 09/10/2017 9:11 AM DATA ANALYSIS ASSISTANT Temperature 36.7 C (98 F) 03/26/2013 9:28 AM CDT Respiratory Rate 18 03/26/2013 9:28 AM CDT Oxygen Saturation 98% 03/26/2013 9:28 AM CDT Inhaled Oxygen Concentration - - Weight 106.6 kg (235 lb) 09/10/2017 9:11 AM DATA ANALYSIS ASSISTANT Height 188 cm (6' 2) 09/10/2017 9:11 AM DATA ANALYSIS ASSISTANT Body Mass Index 30.17 09/10/2017 9:11 AM DATA ANALYSIS ASSISTANT Plan of Treatment Not on file Insurance MEDICARE Care Teams Hospice Nurse Practitioner Relationship Specialty Start Date End Date Guero Hutchinson MD [phone] [place] [address] [place] [id number] PCP - General Urology 11/14/15
[2024-11-16 16:19] VITALS: BP 165/75; PULSE 70; RESP 18; TEMP 37; O2SAT 99; BMI 22.6
--- NOTE | 2024-11-16 16:42 | ED.MALEGU ---
HPI - Male Genitourinary General Time Seen by Provider: 16:42 Date Seen: 11/16/24 Chief complaint: Urogenital Problems, Male Stated complaint: Bleeding from Catheter Time Seen by Provider: 11/16/24 16:39 Source: patient and RN notes reviewed Mode of arrival: ambulatory Limitations: no limitations History of Present Illness HPI Narrative: This 74-year-old male is returning to the ER today after being seen for constipation earlier with complaint of blood around his Fragoso catheter. He had an Enemeez here earlier today with good results. He was to go home and start GoLYTELY cleanout which he has not done. He states he went home, had further large bowel movement and a slight accident. He then took a shower, after the shower noted some bob bleeding around the urethral meatus and blood in the catheter going into the bag. He never had any blockage of urine flow from the Fragoso. His Fragoso is in place for urinary obstruction that happened recently, is under the care of urology with definitive plans for treatment. He has had no fevers chills, no concerns for urinary tract infection. He denies any definite trauma or pulling on the catheter. The bleeding has subsequently stopped in the urine going into the Fragoso catheter is now clear. He does note that he does drink a lot of water in a day. He was just concern. He is chronically anticoagulated with Eliquis for atrial fibrillation. He has not missed any doses of the Eliquis, has not taken any inadvertent doses of the Eliquis. Related Data Previous Rx's ?Medication ?Instructions ?Recorded epinephrine 0.3 mg/0.3 mL 0.3 ml IM .As Needed as needed PRN 07/03/23 injection, auto-injector anaphylaxis #2 ea diltiazem HCl 60 mg 60 mg PO BID #60 caps 09/01/24 capsule,extended release 12 hr atorvastatin 40 mg tablet 40 mg PO HS #90 tabs 09/28/24 glipizide 10 mg tablet, extended 10 mg PO DAILY #90 tabs 09/28/24 release 24 hr lisinopril 10 mg tablet 10 mg PO DAILY #90 tabs 09/28/24 metformin 500 mg tablet,extended 1,000 mg (2 x 500 mg) PO QDAY #180 09/28/24 release 24 hr tabs apixaban 5 mg tablet (Eliquis) 5 mg PO BID #60 tabs 11/12/24 peg 3350-electrolytes 236 240 ml PO Q10M #4,000 mL 11/16/24 gram-22.74 gram-6.74 gram-5.86 gram solution (Golytely) Allergies Allergy/AdvReac Type Severity Reaction Status Date / Time bee venom protein (honey bee) Allergy Verified 11/16/24 09:29 Penicillins Allergy Verified 11/16/24 09:29 tamsulosin (From Flomax) AdvReac Intermediate orthostatic Verified 11/16/24 09:29 hypotension Review of Systems Narrative: As per HPI. [facility] Medical History Stenosis of right carotid artery (01/03/21) ?I65.21 - Occlusion and stenosis of right carotid artery (ICD-10) Hypercholesterolemia (04/18/15) ?E78.00 - Pure hypercholesterolemia, unspecified (ICD-10) Hematuria (04/18/15) ?R31.9 - Hematuria, unspecified (ICD-10) Benign neoplasm of colon (05/28/07) ?D12.6 - Benign neoplasm of colon, unspecified (ICD-10) Anaphylactic reaction to bee sting (04/18/15) ?T63.441A - Toxic effect of venom of bees, accidental (unintentional), initial encounter (ICD-10) ?T78.2XXA - Anaphylactic shock, unspecified, initial encounter (ICD-10) Allergic rhinitis (12/11/05) ?J30.9 - Allergic rhinitis, unspecified (ICD-10) Atrial fibrillation ?I48.91 - Unspecified atrial fibrillation (ICD-10) Hyponatremia ?E87.1 - Hypo-osmolality and hyponatremia (ICD-10) Chronic hyponatremia ?E87.1 - Hypo-osmolality and hyponatremia (ICD-10) Right lumbar radiculopathy ?M54.16 - Radiculopathy, lumbar region (ICD-10) Leukocytosis ?D72.829 - Elevated white blood cell count, unspecified (ICD-10) Lumbar radiculopathy ?M54.16 - Radiculopathy, lumbar region (ICD-10) Chronic low back pain ?M54.50 - Low back pain, unspecified (ICD-10) ?G89.29 - Other chronic pain (ICD-10) Cerebrovascular accident (CVA) (07/2020) ?I63.9 - Cerebral infarction, unspecified (ICD-10) Bladder cancer (2013) ?C67.9 - Malignant neoplasm of bladder, unspecified (ICD-10) Allergic to bees ?Z91.030 - Bee allergy status (ICD-10) Adenomatous polyp of colon ?D12.6 - Benign neoplasm of colon, unspecified (ICD-10) Gout ?M10.9 - Gout, unspecified (ICD-10) Hypertension ?I10 - Essential (primary) hypertension (ICD-10) Diabetes mellitus ?E11.9 - Type 2 diabetes mellitus without complications (ICD-10) Abnormal gait ?R26.9 - Unspecified abnormalities of gait and mobility (ICD-10) Surgical History History of amputation of toe ?Z89.429 - Acquired absence of other toe(s), unspecified side (ICD-10) History of colonoscopy ?Z98.890 - Other specified postprocedural states (ICD-10) History of tonsillectomy (1968) ?Z90.89 - Acquired absence of other organs (ICD-10) History of right-sided carotid endarterectomy ?Z98.890 - Other specified postprocedural states (ICD-10) Social History Narrative: SOCIAL HISTORY: He is single. Retired. One daughter living in [facility] that he does not see much. No longer working at [employer]. No longer working for the [employer]. 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 Code status is full. He does not want prolonged life support. His nephew, Adrien Araiza, of [place] is healthcare power of assistant city attorney HABITS: Sporadic walking for exercise. Sporadic smoking in the past. He denies smoking at this point. No alcohol or recreational drug use. FAMILY HISTORY: No changes. Parents both . He did not know them well. Father around 80 of unknown cause. Mother around 70 of unknown cancer. Three sisters all living with borderline diabetes otherwise healthy. What is your current living situation?: I presently have a place to live Problems where you live: no known problems Problems where you live details: N/A In the past 12 months, utilities in danger of being shut off: no In past 12 months, lack of transportation kept you from medical appts, meetings, work, or getting things needed for daily living: no In the past 12 mos, have been you worried that your food would run out before you had money to buy more?: never true In the past 12 mos, the food you bought just didn't last and you didn't have money to buy more?: never true Highest level of school completed/degree received: high school graduate Smoking Status: Former smoker What tobacco products do you use: cigarettes Smoking quit date/years: <= 15 years ago Do you use any of these nicotine containing products: None Second hand tobacco smoke exposure: No How often do you have a drink containing alcohol: never AUDIT-C Alcohol total score: 0 Non-prescribed substance use: marijuana (any form) How often does anyone, including family, friends and others, physically hurt you: never How often does anyone, including family, friends and others, insult or talk down to you: never How often does anyone, including family, friends and others, threaten you with harm: never How often does anyone, including family, friends and others, scream or curse at you: never service: Yes Exam Const: Vital Signs, click to edit/add: Vital Signs - 24 hr 11/16/24 16:19 Temperature 98.6 F Pulse Rate [Pulse Oximeter] 70 Respiratory Rate 18 Blood Pressure [Ri ght Upper Arm] 165/75 H Pulse Oximetry 99 Oxygen Delivery Me thod Room Air Patient is alert, interactive, no apparent distress. Ambulatory into the ED of his own accord. Abdomen is soft, nontender, nondistended, no rebound or guarding, no organomegaly. The urine draining out of his Fragoso catheter is indeed clear, note no blood or clots. The urine in the bag still does contain some red urine, see no clots. Documenting provider has reviewed patient's vital signs: yes Course Course ED Course: We discussed my suspicion that the constipation just likely aggravated the urinary system. He is on Eliquis which makes him more prone for bleeding. At this time the urine draining in the catheter is completely clear. He is really had no symptoms of urinary tract infection and thus do not feel urinalysis should be done, would most likely represent a false positive as he is not symptomatic. He will continue to watch for recurrent hematuria, obstruction from blood clotting. He understands he needs to return with these. At this time, he does request that we change the Fragoso bag as his has been leaking. We will do so. I do feel he is safe to discharge home. Vital Signs Vital signs: Initial Vital Signs Temperature 98.6 F 11/16/24 16:19 Temperature Source Temporal Artery Scan 11/16/24 16:19 Pulse Rate 70 11/16/24 16:19 Respiratory Rate 18 11/16/24 16:19 Blood Pressure 165/75 H 11/16/24 16:19 Blood Pressure Mean 105 11/16/24 16:19 Pulse Oximetry 99 11/16/24 16:19 Oxygen Delivery Method Room Air 11/16/24 16:19 Vital Signs Temperature 98.6 F 11/16/24 16:19 Pulse Rate 70 11/16/24 16:19 Respiratory Rate 18 11/16/24 16:19 Blood Pressure 165/75 H 11/16/24 16:19 Pulse Oximetry 99 11/16/24 16:19 Oxygen Delivery Method Room Air 11/16/24 16:19 Temperature 98.6 F 11/16/24 16:19 Pulse Rate 70 11/16/24 16:19 Respiratory Rate 18 11/16/24 16:19 Blood Pressure 165/75 H 11/16/24 16:19 Pulse Oximetry 99 11/16/24 16:19 Oxygen Delivery Method Room Air 11/16/24 16:19 Discharge Plan Discharge Clinical Impression: Gross hematuria Patient Disposition: Home, Self-Care Condition: Stable Instructions: Hematuria (ED) Additional Instructions: If you have recurrent blood in your urine that isn't stopping within a couple hours, if you develop clots that her obstructive of urinary flow, do recommend re-evaluation. Otherwise, continue to follow up with Urology as planned. Activity Level: Activity as Tolerated Prescriptions: No Action atorvastatin 40 mg tablet 40 mg PO HS Qty: 90 3RF glipizide 10 mg tablet extended release 24hr 10 mg PO DAILY Qty: 90 3RF lisinopril 10 mg tablet 10 mg PO DAILY Qty: 90 3RF metformin 500 mg tablet extended release 24 hr 1,000 mg PO QDAY Qty: 180 3RF epinephrine 0.3 mg/0.3 mL auto-injector 0.3 ml IM .As Needed as needed PRN (Reason: anaphylaxis) Qty: 2 0RF peg 3350-electrolytes [Golytely] 236-22.74-6.74 -5.86 gram recon soln 240 ml PO Q10M Qty: 4000 0RF Rx Instructions: until fecal effluent is clear diltiazem HCl 60 mg capsule,extended release 12 hr 60 mg PO BID Qty: 60 2RF Eliquis 5 mg tablet 5 mg PO BID Qty: 60 10RF Follow Up/Referrals: Santi Juarez MD [Primary Care Provider] - Stand Alone Forms: MyHealth Info Instructions
--- OUTSIDE RECORDS SUMMARY | 2024-11-16 17:07 | XMS_ITS | Clinical Summary ---
Author Organization [facility] Address [address] [address] Care Team Providers Care Nurse Staff [facility] Name Role Phone Guero Hutcihnson MD Primary Care Provider Allergies Active Allergy [...] on file Legal Sex Male 3:05 AM LPN Gender Identity Not on file Sexual Orientation Not on file Last Filed Vital Signs Vital Sign Reading Time Taken Comments Blood Pressure 122/78 09/10/2017 9:11 AM LPN Pulse 70 09/10/2017 9:11 AM LPN Temperature 36.7 C (98 F) 03/26/2013 9:28 AM CDT Respiratory Rate 18 03/26/2013 9:28 AM CDT Oxygen Saturation 98% 03/26/2013 9:28 AM CDT Inhaled Oxygen Concentration - - Weight 106.6 kg (235 lb) 09/10/2017 9:11 AM LPN Height 188 cm (6' 2) 09/10/2017 9:11 AM LPN Body Mass Index 30.17 09/10/2017 9:11 AM LPN Plan of Treatment Not on file Insurance MEDICARE Care Teams Nurse Staff [facility] Relationship Specialty Start Date End Date Guero Hutchinson MD [id number] [place] [phone] [place] [id number] PCP - General Urology 11/14/15
--- OUTSIDE RECORDS SUMMARY | 2024-11-16 17:08 | XMS_ITS | Clinical Summary ---
Author Organization [employer] [facility] Address [address] [place] [address] Care Team Providers Care Interstate Bus Driver Name Role Phone Santi Juarez MD Primary Care Provider [phone] Allergies Active Allergy Reactions Criticality Noted Date [...] 11/05/2024 10:30 AM CDT Office Visit [facility] [address] [place] [address] Adrien Suarez MD Arrived 10/08/2024 3:37 PM MULTIPLE DRILL OPERATOR Anesthesia Event [address] [address] Cecilia Patel MD Wagner, Stephen Robert, MD 10/08/2024 3:25 PM MULTIPLE DRILL OPERATOR - 10/08/2024 5:03 PM MULTIPLE DRILL OPERATOR Surgery [address] [address] Marcia Epstein MD CYSTOSCOPY, CLOT EVACUATION, FULGURATION 10/06/2024 2:08 PM MULTIPLE DRILL OPERATOR - 10/10/2024 12:06 PM MULTIPLE DRILL OPERATOR Hospital Encounter [address] [address] s, U Hospitalist Abhi Young MD Atrial fibrillation, unspecified type (HC) (Primary Dx); Benign prostatic hyperplasia with lower urinary tract symptoms, symptom details unspecified Discharge Disposition: Home Self Care 10/06/2024 Travel 09/24/2024 Transcribe Orders [facility] [address] [place] [address] Doug Dia MD 09/23/2024 Transcribe Orders Customer Experience [facility] [phone] Shaun Baer MD 08/28/2024 3:00 PM MULTIPLE DRILL OPERATOR Ancillary Procedure [facility] [address] [facility] [place] [address] 08/27/2024 Telephone [facility] [address] [place] [address] Harvey Gonzalez MD from Last 3 Months [...] on file Legal Sex Male 7:26 PM MULTIPLE DRILL OPERATOR Gender Identity Not on file Sexual Orientation Not on file Obstetrics History Last Filed Vital Signs Vital Sign Reading Time Taken Comments Blood Pressure 144/66 10/10/2024 7:21 AM MULTIPLE DRILL OPERATOR Pulse 58 10/10/2024 7:21 AM MULTIPLE DRILL OPERATOR Temperature 36.4 C (97.5 F) 10/10/2024 7:21 AM MULTIPLE DRILL OPERATOR Respiratory Rate 17 10/10/2024 7:21 AM MULTIPLE DRILL OPERATOR Oxygen Saturation 96% 10/10/2024 7:21 AM MULTIPLE DRILL OPERATOR Inhaled Oxygen Concentration - - Weight 73.9 kg (163 lb) 10/09/2024 5:08 AM MULTIPLE DRILL OPERATOR Height 188 cm (6' 2) 10/09/2024 5:08 AM MULTIPLE DRILL OPERATOR Body Mass Index 20.93 10/09/2024 5:08 AM MULTIPLE DRILL OPERATOR Plan of Treatment Health Maintenance Due [...] Completed 12/09/2020 Medical Devices Implanted Type Area Minister Helper Device Identifier Shelf Expiration Date Model / Serial / Lot Tissue Pericardium 0.8x8cm Xenosure - [id number] Implanted:Qty: 1 on 01/03/2021 by Warren Peña MD at [facility] Right: Carotid Artery [employer] 08/08/2026 0.8P8 / / [id number] Procedures Procedure Name Priority Date/Time Associated Diagnosis Comments HEMOGLOBIN Early AM 10/10/2024 7:27 AM MULTIPLE DRILL OPERATOR GLUCOSE METER Timed 10/10/2024 7:23 AM MULTIPLE DRILL OPERATOR GLUCOSE METER Timed 10/09/2024 9:12 PM MULTIPLE DRILL OPERATOR GLUCOSE METER Timed 10/09/2024 4:48 PM MULTIPLE DRILL OPERATOR GLUCOSE METER Timed 10/09/2024 11:35 AM MULTIPLE DRILL OPERATOR GLUCOSE METER Timed 10/09/2024 6:42 AM MULTIPLE DRILL OPERATOR HEMOGLOBIN Timed 10/09/2024 6:38 AM MULTIPLE DRILL OPERATOR GLUCOSE METER Timed 10/08/2024 9:08 PM MULTIPLE DRILL OPERATOR HEMOGLOBIN Timed 10/08/2024 6:56 PM MULTIPLE DRILL OPERATOR GLUCOSE METER Timed 10/08/2024 6:40 PM MULTIPLE DRILL OPERATOR EKG 12 LEAD STAT 10/08/2024 6:34 PM MULTIPLE DRILL OPERATOR GLUCOSE METER Timed 10/08/2024 5:51 PM MULTIPLE DRILL OPERATOR GLUCOSE METER Timed 10/08/2024 4:43 PM MULTIPLE DRILL OPERATOR SUPRAGLOTTIC-LMA Routine 10/08/2024 4:09 PM MULTIPLE DRILL OPERATOR CYSTOSCOPY EVACUATION BLADDER CLOTS 10/08/2024 3:27 PM MULTIPLE DRILL OPERATOR Gross hematuria GLUCOSE METER Timed 10/08/2024 3:20 PM MULTIPLE DRILL OPERATOR GLUCOSE METER Timed 10/08/2024 11:50 AM MULTIPLE DRILL OPERATOR SCAN CORRESP-LABORATORY RESULTS 10/08/2024 10:55 AM MULTIPLE DRILL OPERATOR GLUCOSE METER Timed 10/08/2024 6:37 AM MULTIPLE DRILL OPERATOR HEMOGLOBIN Early AM 10/08/2024 6:04 AM MULTIPLE DRILL OPERATOR GLUCOSE METER Timed 10/07/2024 11:53 PM MULTIPLE DRILL OPERATOR GLUCOSE METER Timed 10/07/2024 9:08 PM MULTIPLE DRILL OPERATOR GLUCOSE METER Timed 10/07/2024 5:14 PM MULTIPLE DRILL OPERATOR US RENAL AND BLADDER COMPLETE TYLER 10/07/2024 12:04 PM MULTIPLE DRILL OPERATOR GLUCOSE METER Timed 10/07/2024 11:34 AM MULTIPLE DRILL OPERATOR GLUCOSE METER Timed 10/07/2024 8:07 AM MULTIPLE DRILL OPERATOR HEMOGLOBIN Timed 10/07/2024 6:45 AM MULTIPLE DRILL OPERATOR HEMOGLOBIN Timed 10/06/2024 11:29 PM MULTIPLE DRILL OPERATOR GLUCOSE METER Timed 10/06/2024 9:13 PM MULTIPLE DRILL OPERATOR GLUCOSE METER Timed 10/06/2024 5:11 PM MULTIPLE DRILL OPERATOR TYPE & SCREEN Today 10/06/2024 4:12 PM MULTIPLE DRILL OPERATOR BASIC METABOLIC PANEL Today 10/06/2024 4:12 PM MULTIPLE DRILL OPERATOR PLATELET COUNT Today 10/06/2024 4:12 PM MULTIPLE DRILL OPERATOR HEMOGLOBIN Timed 10/06/2024 4:12 PM MULTIPLE DRILL OPERATOR HEMOGLOBIN A1C MONITORING (POCT) Today 10/06/2024 4:12 PM MULTIPLE DRILL OPERATOR SCAN-CARDIAC STRIP 10/06/2024 12 :00 AM MULTIPLE DRILL OPERATOR ECHO TTE COMPLETE WO CONTRAST Routine 08/28/2024 1:07 PM MULTIPLE DRILL OPERATOR New onset a-fib (HC) COLONOSCOPY 04/03/2023 9:22 AM CDT US ABD AORTA SCREENING Routine 12/09/2020 9:28 AM CDT HTN (hypertension) from Last 3 Months or Most Recently Relevant to Health Maintenance Results * (ABNORMAL) HEMOGLOBIN (10/10/2024 7:27 AM MULTIPLE DRILL OPERATOR) Only the most recent of7 resultswithin the time period is included. HEMOGLOBIN 8.3(L) 13.5 - 17.5 g/dL 10/10/2024 7:41 AM MULTIPLE DRILL OPERATOR [facility] MCV 84 80 - 100 fL 10/10/2024 7:41 AM MULTIPLE DRILL OPERATOR [facility] Blood BLOOD SPECIMEN / Unknown Venipuncture / Unknown 10/10/2024 7:27 AM MULTIPLE DRILL OPERATOR 10/10/2024 7:36 AM MULTIPLE DRILL OPERATOR Abhi Vogel MD HEMATOLOGY Final Re sult [facility] SENDOUT INTERNAL ZIP [id number] [place] [address] * (ABNORMAL) GLUCOSE METER (10/10/2024 7:23 AM MULTIPLE DRILL OPERATOR) Only the most recent of19 resultswithin the time period is included. GLUCOSE METER 166(H) 65 - 100 mg/dL 10/10/2024 7:27 AM MULTIPLE DRILL OPERATOR [facility] Blood BLOOD SPECIMEN / Unknown 10/10/2024 7:23 AM MULTIPLE DRILL OPERATOR 10/10/2024 7:27 AM MULTIPLE DRILL OPERATOR Abhi Vogel MD CHEMISTRY Final Re sult [facility] SENDOUT INTERNAL ZIP [id number] [address] [place] [address] * 12 Lead EKG - PRN (10/08/2024 6:34 PM MULTIPLE DRILL OPERATOR) Interpretation Normal sinus rhythm Anterior infarct [...] NOW QTc 410 ms BEYOND NOW P Anna 100 degrees BEYOND NOW R Anna -4 degrees BEYOND NOW T Anna -7 degrees BEYOND NOW 10/08/2024 6:34 PM MULTIPLE DRILL OPERATOR 10/09/2024 8:13 AM MULTIPLE DRILL OPERATOR Abhi Vogel MD EKG ORD Final Re sult Performing Organization Address City/[facility]/ZIP Co de Phone Number BEYOND NOW [place], [place] * HCHG MASK PR5 (10/08/2024 4:09 PM MULTIPLE DRILL OPERATOR) Narrative Luís Khalil CRNA - 10/08/2024 4:09 PM MULTIPLE DRILL OPERATOR Luís Khalil CRNA 10/08/2024 4:09 PM [...] * SCAN CORRESP-LABORATORY RESULTS (10/08/2024 10:55 AM MULTIPLE DRILL OPERATOR) Narrative 10/08/2024 10:55 AM MULTIPLE DRILL OPERATOR Ordered by an unspecified provider. us Other Clinical Staff OTHER Final Resul t * US RENAL AND BLADDER COMPLETE (10/07/2024 12:04 PM MULTIPLE DRILL OPERATOR) Anatomical Region Laterality Modality Abdomen, AORTA, KIDNEYS Ultrasou nd 10/07/2024 12:0 4 PM MULTIPLE DRILL OPERATOR Impressions 10/07/2024 12:12 PM MULTIPLE DRILL OPERATOR 1. Normal kidney ultrasound. 2. Decompressed urinary bladder with Fragoso catheter in place. Narrative 10/07/2024 12:12 PM MULTIPLE DRILL OPERATOR For Patients: As a result of [...] EXAM: US RENAL AND BLADDER COMPLETE LOCATION: [facility] DATE: 10/07/2024 INDICATION: Hematuria COMPARISON: [...] * TYPE & SCREEN (10/06/2024 4:12 PM MULTIPLE DRILL OPERATOR) ABORH AB Rh Positive 10/06/2024 5:[address]IPLE DRILL [address] [facility] BLOOD BANK ANTIBODY SCREEN Negative Negative 10/06/2024 5:21 [address]IPLE DRILL OPER[address] [facility] BLOOD BANK SPECIMEN EXPIRATION DATE/TIME 10/09/24 23:59 10/06/2024 5:21 [address]IPLE DRILL O[address] [facility] BLOOD B[facility] Blood BLOOD SPECIMEN / Unknown Venipuncture / Unknown 10/06/2024 4:12 PM MULTIPLE DRILL OPERATOR 10/06/2024 4:27 PM MULTIPLE DRILL OPERATOR Abhi Vogel MD BLOOD BANK Final Re sult [facility] BLOOD BANK [address] [place] [address] * PLATELET COUNT (10/06/2024 4:12 PM MULTIPLE DRILL OPERATOR) PLATELET COUNT 224 140 - 440 thou/cu mm 10/06/2024 4:29 PM MULTIPLE DRILL OPERATOR [facility] MPV 10.0 6.5 - 11.0 fL 10/06/2024 4:29 PM MULTIPLE DRILL OPERATOR [facility] Blood BLOOD SPECIMEN / Unknown Venipuncture / Unknown 10/06/2024 4:12 PM MULTIPLE DRILL OPERATOR 10/06/2024 4:27 PM MULTIPLE DRILL OPERATOR Abhi Vogel MD HEMATOLOGY Final Re sult [facility] SENDOUT INTERNAL ZIP [id number] [place] [address] * Hemoglobin A1C (10/06/2024 4:12 PM MULTIPLE DRILL OPERATOR) HEMOGLOBIN A1C MONITORING (POCT) 6.3 <=6.4 % 10/06/2024 6:05 PM MULTIPLE DRILL OPERATOR [facility] Blood BLOOD SPECIMEN / Unknown Venipuncture / Unknown 10/06/2024 4:12 PM MULTIPLE DRILL OPERATOR 10/06/2024 4:27 PM MULTIPLE DRILL OPERATOR Narrative [facility] - 10/06/2024 6:05 PM MULTIPLE DRILL OPERATOR (<=6.9%) Indicates good control (7.0% to 7.9%) Indicates fair control (>=8.0%) Indicates poor control NOTE: These thresholds are guidelines and individual targets may vary. Falsely low levels may be seen with: Recent Transfusion, Recent Significant Blood Loss, Hemolytic Diseases, or Falsely elevated levels may be seen with: Untreated Anemias, Splenectomy Abhi Vogel MD CHEMISTRY Final Re sult [facility] SENDOUT INTERNAL ZIP [id number] [place] [address] * (ABNORMAL) BASIC METABOLIC PANEL (10/06/2024 4:12 PM MULTIPLE DRILL OPERATOR) SODIUM 134(L) 136 - 145 mmol/L 10/06/2024 4:49 PM [facility] POTASSIUM 3.9 3.5 - 5.1 mmol/L 10/06/2024 4:49 PM [facility] CHLORIDE 100 98 - 107 mmol/L 10/06/2024 4:49 PM [facility] CO2,TOTAL 24 22 - 29 mmol/L 10/06/2024 4:49 PM [facility] ANION GAP 10 5 - 18 10/06/2024 4:49 PM [facility] GLUCOSE 125(H) 70 - 99 mg/dL 10/06/2024 4:49 PM [facility] CALCIUM 8.8 8.8 - 10.4 mg/dL 10/06/2024 4:49 PM [facility] Comment: Reference ranges for this test were updated on 06/16/2024 to reflect our healthy population more accurately. Reference range changes are not retroactively applied to results, but previous results using the same methodology can be interpreted in the context of the new reference range. BUN 17 8 - 23 mg/dL 10/06/2024 4:49 PM [facility] CREATININE 0.76 0.70 - 1.20 mg/dL 10/06/2024 4:49 PM [facility] BUN/CREAT RATIO 22(H) 10 - 20 4:49 PM [facility] eGFR >90 >90 mL/min/1. 73m2 10/06/2024 4:49 PM [facility] Comment:As of 2021, eG FR is calculated by the CKD-EPI creatinine equation without race adjustment. eGFR can be influenced by muscle mass, exercise, and diet. The reported eGFR is an estimation only and is only applicable if the renal function is stable. Blood BLOOD SPECIMEN / Unknown Venipuncture / Unknown 10/06/2024 4:12 PM MULTIPLE DRILL OPERATOR 10/06/2024 4:27 PM MULTIPLE DRILL OPERATOR us Abhi Vogel MD CHEMISTRY Final Re sult [facility] SENDOUT INTERNAL ZIP [id number] [address] [place] [address] * SCAN-CARDIAC STRIP (10/06/2024 12:00 AM MULTIPLE DRILL OPERATOR) Narrative 10/06/2024 12:00 AM MULTIPLE DRILL OPERATOR Ordered by an unspecified provider. us Other Clinical Staff OTHER Final Resul t * ECHO TTE COMPLETE WO CONTRAST (08/28/2024 1:07 PM MULTIPLE DRILL OPERATOR) AORTIC VALVE MEAN PG 5 mmHg EJECTION FRACTION 67 % PEAK TR VELOCITY 2.7 m/s LVEDD 3.8 cm EJECTION FRACTION 60 - 65% Anatomical Region Laterality Modality Ultrasound 08/28/2024 10:4 4 AM MULTIPLE DRILL OPERATOR Narrative 08/28/2024 1:14 PM MULTIPLE DRILL OPERATOR ECHOCARDIOGRAM SURESH MOLINA : 1950 74 years Study Date: 08/28/2024 10:44:58 AM Gender: M BP: 179/93 mmHg Height: 188.00 cm BSA: 2.10 m Weight: 84.00 kg Tech: SEN Referring MD: LEOPOLDO MUÑIZ Site: [facility] Reading Location: Mobile-IP Patient [...] study was interpreted by an [facility] accredited facility. CC: HIM (med records) [facility], Med/Surg - IP [facility]. Final Procedure Note Jony Donato MD - 08/28/2024 ECHOCARDIOGRAM SURESH MOLINA : 1950 74 years Study Date: 08/28/2024 10:44:58 AM Gender: M BP: 179/93 mmHg Height: 188.00 cm BSA: 2.10 m Weight: 84.00 kg Tech: SEN Referring MD: LEOPOLDO MUÑIZ Site: [facility] Reading Location: Mobile-IP Patient [...] [facility] accredited facility. CC: HIM (med records) [facility], Med/Surg - IP [facility]. Final us Leopoldo Muñiz PA [...] candidate for conscious sedation. The endoscope PCF-[id number] [id number] was passed through the anus andadvanced to [...] 9:22 AM Procedure Code(s): --- Professional --- 85211, Colonoscopy, flexible; with removalof tumor(s), polyp(s), or other lesion(s) bysnare technique Diagnosis Code(s): --- Professional --- Z86.010, Personal history of colonicpolyps D12.2, Benign neoplasm of ascending colon K57.30, Diverticulosis of large intestine without perforation or abscess withoutbleeding CPT copyright 2021 [employer]. All rights reserved. The codes documented in this report are preliminary and upon wire communications engineer reviewmay be revised to meet current compliance [...] Gender: M Referring MD: WARREN PEÑA Site: [facility] Study performed: Iliac, (bilateral) Indication [...] study was performed and interpreted by [facility], a service accredited by the Intersocietal Accreditation Commission (IAC/Vascular), www.intersocietal.org/vascular Report generated by [employer]im. Final Procedure Note Valdemar Sandoval MD - 12/10/2020 VASCULAR ULTRASOUND REPORT SURESH MOLINA : 1950 Study Date: 12/09/2020 9:05:56 AM Age: 70 years Tech: Elo Juarez Gender: M Referring MD: WARREN PEÑA Site: [facility] V[facility] Study performed: Iliac, (bilateral) Indication [...] This study was performed and interpreted by [facility], a service accredited by the Intersocietal Accreditation Commission (IAC/Vascular),www.intersocietal.org/vascular Report generated by [employer]pim. Final us Warren Peña MD Fi nal Result from Last 3 Months or Most Recently Relevant to Health Maintenance Insurance PREFERRED [facility] MEDICARE PART B HB ONLY [facility] MEDICARE PB ONLY MEDICARE PART A HB ONLY Advance Directives * Full Code (Latest Code Status on File) Date Activated Date Inactivated Comments 10/06/2024 2:51 PM 10/10/2024 2:11 PM Question Answer Comments Code Status Discussion: Reviewed Preferences * Full Code Date Activated Date Inactivated Comments 01/03/2021 6:00 AM 01/04/2021 1:54 PM Question Answer Comments Code Status Discussion: Not Discussed Care Teams Interstate Bus Driver Relationship Specialty Start Date End Date Santi Juarez MD [address] [place] [address] PCP - General Family Practice 12/07/20
== END 2024-11-16 17:31 | disposition home or self-care (01) ==
LOC: ED 17:04
PROVIDERS: Emergency Provider Family Medicine; PCP Family Medicine
DX: K59.00 Constipation, unspecified (principal)
CPT/HCPCS: 99282; 99283

== ENCOUNTER 2025-01-11 13:14 | Outpatient (CLI) | payer MEDICARE, BC, SELFPAY | END 2025-01-11 13:15 | disposition home or self-care (01) | LOC: NFLDREF 13:16 | PROVIDERS: PCP Family Medicine; Visit Provider Family Medicine | DX: Z01.818 Encounter for other preprocedural examination (principal); I10 Essential (primary) hypertension; E11.42 Type 2 diabetes mellitus with diabetic polyneuropathy; I48.91 Unspecified atrial fibrillation; E78.5 Hyperlipidemia, unspecified; Z79.84 Long term (current) use of oral hypoglycemic drugs; R55 Syncope and collapse | CPT/HCPCS: 80048 ==

== ENCOUNTER 2025-01-11 13:48 | Emergency (ER) | payer MEDICARE, BC, SELFPAY ==
[2025-01-11] VITALS (17 sets, daily range): BP systolic 106–188; BP diastolic 58–88; PULSE 53–71; RESP 9–33; TEMP 36.3; O2SAT 85–100; BMI 23.1
--- OUTSIDE RECORDS SUMMARY | 2025-01-11 13:50 | XMS_ITS | Clinical Summary ---
Author Organization [employer] [facility] Address [address] [place] [address] Care Team Providers Care Imaging Technician Name Role Phone Santi Juarez MD Primary Care Provider [phone] Allergies Active Allergy Reactions Criticality Noted Date [...] Description 11/05/2024 10:30 AM CDT Office Visit [facility] [place] [address] Adrien Suarez MD from Last 3 Months Immunizations Immunization [...] on file Legal Sex Male 7:26 PM WHITING MACHINE OPERATOR Gender Identity Not on file Sexual Orientation Not on file Obstetrics History Last Filed Vital Signs Vital Sign Reading Time Taken Comments Blood Pressure 144/66 10/10/2024 7:21 AM WHITING MACHINE OPERATOR Pulse 58 10/10/2024 7:21 AM WHITING MACHINE OPERATOR Temperature 36.4 C (97.5 F) 10/10/2024 7:21 AM WHITING MACHINE OPERATOR Respiratory Rate 17 10/10/2024 7:21 AM WHITING MACHINE OPERATOR Oxygen Saturation 96% 10/10/2024 7:21 AM WHITING MACHINE OPERATOR Inhaled Oxygen Concentration - - Weight 73.9 kg (163 lb) 10/09/2024 5:08 AM WHITING MACHINE OPERATOR Height 188 cm (6' 2) 10/09/2024 5:08 AM WHITING MACHINE OPERATOR Body Mass Index 20.93 10/09/2024 5:08 AM WHITING MACHINE OPERATOR Plan of Treatment Upcoming Encounters Date Type Department Care Team (Latest Contact Info) Description 01/26/2025 11:50 AM CDT Hospital Encounter [place] [address] [place] [address] Obey Pedraza MD [address] [place] [address] 01/26/2025 11:50 AM CDT - 01/26/2025 3:30 PM CDT Surgery [place] [address] [place] [address] Obey Pedraza MD [address] [place] [address] CYSTOSCOPY, BIPOLAR ENUCLEATION OF PROSTATE Scheduled Procedures Name Priority Associated Diagnoses Date/Ti me HOLEP LASER ENUCLEATION OF PROSTATE WITH MORCELLATION Tier 3 LOWER URINARY TRACT SYMPTOMS DUE TO BENIGN PROSTATIC HYPERTROPHY 01/26/2025 11:50 AM CDT Health Maintenance Due Date Last Done Comments Depression screening for age 12+ 1964 Hepatitis C screening for age 18-79 01/11/1970 Pneumococcal series for age 50+ [...] 12/07/2020 COVID-19 vaccine series ( season) 2024 11/17/2024, 04/16/2024, 05/08/2022, Additional history exists Influenza Vaccine (Season Ended) 2025 05/19/2014, 05/11/2012, 05/14/2011 Colonoscopy through age 75 04/03/202804/03, 04/03/2023, 04/01/2018, Additional history exists Tdap Completed 11/17/2004 AAA screening age 65-74 Completed 12/09/2020 Hepatitis B series for 19+ Aged Out N o longer eligible based on patient's age to complete this topic Medical Devices Implanted Type Area Metal Weather Stripper Device Identifier Shelf Expiration Date Model / Serial / Lot Tissue Pericardium 0.8x8cm Xenosure - [id number] Implanted:Qty: 1 on 01/03/2021 by Warren Jacobs MD at [facility] Right: Carotid Artery [employer] 08/08/2026 0.8P8 / / [id number] Procedures Procedure Name Priority Date/Time Associated Diagnosis Comments COLONOSCOPY 04/03/2023 9:22 AM CDT US ABD AORTA SCREENING Routine 12/09/2020 9:28 AM CDT HTN (hypertension) from Last 3 Months or Most Recently Relevant to Health Maintenance Results * COLONOSCOPY (04/03/2023 9:22 AM CDT) 04/03/2023 9:22 AM CDT Narrative Transcriptions Moi Lui MD - 04/03/2023 11:12 AM CDT Patient Name: Wong Molina Procedure Date: 04/03/2023 Gender: Male Date [...] candidate for conscious sedation. The endoscope [id number]-[id number] [id number] was passed through the anus andadvanced to [...] 9:22 AM Procedure Code(s): --- Professional --- 29154, Colonoscopy, flexible; with removalof tumor(s), polyp(s), or other lesion(s) bysnare technique Diagnosis Code(s): --- Professional --- Z86.010, Personal history of colonicpolyps D12.2, Benign neoplasm of ascending colon K57.30, Diverticulosis of large intestine without perforation or abscess withoutbleeding CPT copyright 2021 [employer]. All rights reserved. The codes documented in this report are preliminary and upon wool grader reviewmay be revised to meet current compliance requirements. Scope In: 10:44:45 AM Scope Withdrawal Time 0 hours 10 minutes 40 seconds Scope Out: 10:59:10 AM us Moi Lui MD PROCEDURE ORD Final Res ult * US ABD AORTA SCREENING (12/09/2020 9:28 AM CDT) Anatomical Region Laterality Modality Abdomen, AORTA Ultrasound 12/09/2020 9:05 AM CDT Narrative 12/10/2020 12:40 PM CDT VASCULAR ULTRASOUND REPORT WONG MOLINA : 1950 Study Date: 12/09/2020 9:05:56 AM Age: 70 years Tech: Elo Juarez Gender: M Referring MD: WARREN JACOBS Site: [facility] Vascular Center Study performed: Iliac, (bilateral) Indication [...] This study was performed and interpreted by [facility], a service accredited by the Intersocietal Accreditation Commission (IAC/Vascular), www.intersocietal.org/vascular Report generated by [employer]™ Interactive. Final Procedure Note Valdemar Sandoval MD - 12/10/2020 VASCULAR ULTRASOUND REPORT WONG MOLINA : 1950 Study Date: 12/09/2020 9:05:56 AM Age: 70 years Tech: Elo Juarez Gender: M Referring MD: WARREN JACOBS Site: [facility] Vascular Center Study performed: Iliac, (bilateral) Indication [...] This study was performed and interpreted by [facility], a service accredited by the Intersocietal Accreditation Commission (IAC/Vascular),[email or web address].org/vascular Report generated by [employer]™ Interactive. Final us Warren Jacobs MD Fi nal Result from Last 3 Months or Most Recently Relevant to Health Maintenance Insurance PREFERRED [facility] MEDICARE PART B HB ONLY [facility] MEDICARE PB ONLY MEDICARE PART A HB ONLY Advance Directives * Full Code (Latest Code Status on File) Date Activated Date Inactivated Comments 10/06/2024 2:51 PM 10/10/2024 2:11 PM Question Answer Comments Code Status Discussion: Reviewed Preferences * Full Code Date Activated Date Inactivated Comments 01/03/2021 6:00 AM 01/04/2021 1:54 PM Question Answer Comments Code Status Discussion: Not Discussed Care Teams Imaging Technician Relationship Specialty Start Date End Date Santi Juarez MD [address] [place] [address] PCP - General Family Practice 12/07/20
--- OUTSIDE RECORDS SUMMARY | 2025-01-11 13:50 | XMS_ITS | Continuity of Care Document ---
Author Organization [facility], [facility] Address [address] [place] [address] Care Team Providers Care Gift Officer Name Role Phone SHEA DURON Primary Care Provider Assessment No assessment recorded. Plan of Treatment Reminders Order Date Submit Date Provider Last Modified By Organization Details Last Modified Time Details Appointments [facility] 180 2024 11:00A M Obey Pedraza [...] Organization Details Recorded Time Retention of urine 841154227 Active 2024 Kurt rajan [facility] 5 12:52:01 Type 2 diabetes mellitus 79868899 Active 2024 Kurt rajan [facility] 5 12:52:35 Hypertensiv e disorder 15184127 Active 2024 Kurt rajan [facility] 5 12:52:38 Lower urinary tract symptoms due to benign prostatic hypertrophy 7177815905752 1 Active 2024 Kurt rajan [facility] 5 10:56:02 Problem Notes None recorded. Procedures Surgical History Date Name Laterality Status Provider Name and Address Organization Details Recorded Time 12/01/19 25 Urethral Catheter Change completed Karina Polo [facility] 11/30/2024 15:17:51 10/30/19 25 SWENSON CHANGE completed Claudia Rossi [facility] 10/29/2024 16:42:14 10/16/19 25 COMPLEX VISIT completed Obey Pedraza MD [address] [place] [address],[address], [place], [address], [facility] 10/15/2024 14:26:19 10/07/19 25 Blood Draw/MARKETING RESEARCH INTERN/PSA RESULTS cancelled Elo Bishop [facility] 10/05/2024 11:50:19 09/29/19 25 Urodynamic Studies completed Dwaine Kong MD [address] [place] [address],[address], [place], [address], [facility] 10/11/2024 11:34:02 09/29/19 25 Swenson Catheter Insertion completed Chelsey Munguia [facility] 09/29/2024 15:46:01 09/09/19 25 Cystoscopy- male completed Obey Pedraza MD [address] [place] [address],[address], [place], [address], [facility] 09/09/2024 11:09:52 09/09/19 25 Past Data Reviewed completed Obey Pedraza MD [address] [place] [address],[address], [place], [address], [facility] 09/09/2024 09:40:02 01/11/20 24 [facility] 10:56:16 Imaging Results None recorded. Procedure Notes None recorded. Medical Equipment None Reported. Allergies Allergen ID Allergen Name Allergen Category Reaction Reaction Severity Criticality Documentation Date Start Date Code Code System Note Provider Name and Address Organization Details Recorded Time 818534 honey bee venom medicatio n Not available Not available Not available 09/01/2024 80296 7 RxNorm Kurt rajan [facility] 12:51:15 875790 Product containin g penicilli n (product) medicatio n Not available Not available Not available 09/01/2024 23945 8001 SNOMED Kurt Owens [facility] 12:51:21 Medications Name Sig Start Date Stop Date [...] d Address Organization Details Last Updated DateTime 11/30/2024 187.96 cm Karina Polo [facility] 11/30/2024 14:53:23 Social History Question Answer Notes LastModified by Organizat ion Details LastModified Time Tobacco Smoking Status Former Smoker Kurt Owens [facility] 09/09/2024 10:55:43 What Is Your Level Of Caffeine Consumption? None Information not available 09/09/2024 When Did You Quit Smoking? 6-10yearssin celastcigare tte Information not available 09/09/2024 What Was The Date Of Your Most Recent Tobacco Screening? 11/30/2024 nvievering Information not available 11/30/2024 How Much Tobacco Do You Smoke? No Information not available 09/09/2024 Has Tobacco Cessation Counseling Been Provided? No Information not available 09/09/2024 Sex: Unknown Functional Status Question Answer Note LastModified by Organizat ion Details LastModified Time Do you use any illicit or recreational drugs? No Information not available 09/09/2024 Do you or have you ever used any other forms of tobacco or nicotine? No Information not available 09/09/2024 What is your level of alcohol consumption? None Information not available 09/09/2024 Mental Status None recorded. Family History Relationship [...] trivalent, PF 4 completed Kurt Meath null, [facility] 09/09/2024 10:52:31 zoster recombinant 3 completed Kurt Meath null, [facility] 09/09/2024 10:52:31 zoster recombinant 3 completed Kurt Meath null, [facility] 09/09/2024 10:52:31 Influenza, high-dose, quadrivalent, PF 1 completed Kurt Meath null, [facility] 09/09/2024 10:52:31 Influenza, high-dose, quadrivalent, PF 0 completed Kurt Meath null, [facility] 09/09/2024 10:52:31 Influenza, adjuvanted, quadrivalent, PF 3 completed Kurt Meath null, [facility] 09/09/2024 10:52:31 Influenza, adjuvanted, quadrivalent, PF 2 completed Kurt Meath null, [facility] 09/09/2024 10:52:31 COVID-19, mRNA, LNP-S, PF, 30 mcg/0.3 mL dose 1 completed Kurt Meath null, [facility] 09/09/2024 10:52:31 COVID-19, mRNA, LNP-S, PF, 30 mcg/0.3 mL dose 1 completed [facility]ath null, [facility] 09/09/2024 10:52:31 COVID-19, mRNA, LNP-S, PF, 30 mcg/0.3 mL dose 1 completed Kurt Meath null, [facility] 09/09/2024 10:52:31 COVID-19, mRNA, LNP-S, bivalent, PF, 30 mcg/0.3 mL dose 2 completed Kurt Meath null, [facility] 09/09/2024 10:52:31 RSV, recombinant, protein subunit RSVpreF, adjuvant reconstituted, 0.5 mL, PF 4 completed Kurt Meath null, [facility] 09/09/2024 10:52:31 COVID-19, mRNA, LNP-S, PF, 50 mcg/0.5 mL 4 completed Kurt Meat null, [facility] 09/09/2024 10:52:31 COVID-19, mRNA, LNP-S, PF, 50 mcg/0.5 mL 3 [facility], [facility] 09/09/2024 10:52:31 pneumococcal polysaccharide PPV23 8 completed Kurt Meath null, [facility] 09/09/2024 10:52:31 Tdap 6 completed Kurt Meat null, [facility] 09/09/2024 10:52:31 Pneumococcal conjugate PCV 13 7 completed Kurt Meath null, [facility] 09/09/2024 10:52:31 zoster live 7 completed Kurt Meath null, [facility] 09/09/2024 10:52:31 Influenza, high-dose, trivalent, PF 8 completed Kurt Meath null, [facility] 09/09/2024 10:52:31 Influenza, high-dose, trivalent, PF 7 completed Kurt Meath null, [facility] 09/09/2024 10:52:31 Influenza, high-dose, trivalent, PF 9 completed Kurt Meath null, [facility] 09/09/2024 10:52:31 Td (adult), 2 Lf tetanus toxoid, preservative free, adsorbed 5 completed Kurt Meath null, [facility] 09/09/2024 10:52:31 Hep A, adult 3 completed Kurt Meath null, [facility] 09/09/2024 10:52:31 typhoid, ViCPs 3 completed Kurt Meath null, [facility] 09/09/2024 10:52:31 influenza, seasonal, intradermal, preservative free 2 completed Kurt Meath null, [facility] 09/09/2024 10:52:31 influenza, seasonal, intradermal, preservative free 1 completed Kurt Meath null, [facility] 09/09/2024 10:52:31 Influenza, split virus, quadrivalent, PF 6 completed Kurt Meath null, [facility] 09/09/2024 10:52:31 Influenza, split virus, quadrivalent, PF 4 completed Kurt Meath null, [facility] 09/09/2024 10:52:31 COVID-19, mRNA, LNP-S, PF, 25 mcg/0.25 mL 5 completed Not Available [facility] 11/30/2024 14:42:49 Past Encounters Encounter ID Performer Location Encounter Start Date Encounter Closed Date Diagnosis/Indication Diagnosis SNOMED-CT Code Diagnosis ICD10 Code Diagnosis Note [id number] Obey Pedraza MD [facility] [address] [facility] e [address] [place] [address] 11/30/2024 14:41:58 12/02/2024 15:58:16 Retention of urine 444839406 R33.9 Health Concerns Section Related Observation LastModified by Organization Detai ls LastModified Time None Recorded Concern Status LastModified by Organization Details LastModified Time None Recorded Payers Encounter Date Sequence Insurance Name Policy Number Policy Bustamante Covered Member ID Bustamante Member ID Guarantor Name 11/30/2024 1 [place]: [facility] [employer] Suresh Martinez [id number] Suresh Martinze 11/30/2024 2 [facility] [id number] Suresh Martinez [id number] Suresh Martinez
--- OUTSIDE RECORDS SUMMARY | 2025-01-11 13:50 | XMS_ITS | Clinical Summary ---
Author Organization [facility] Address [address] [facility] [place] [address] Care Team Providers Care Grazing Aide Name Role Phone Guero Hutchinson MD Primary [...] review and confirm Imo Update utility Immunizations Immunization Administration Dates Next Due Influenza (IIV3) PF [...] on file Legal Sex Male 3:05 AM EDUCATIONAL TECHNOLOGY SPECIALIST Gender Identity Not on file Sexual Orientation Not on file Last Filed Vital Signs Vital Sign Reading Time Taken Comments Blood Pressure 122/78 09/10/2017 9:11 AM EDUCATIONAL TECHNOLOGY SPECIALIST Pulse 70 09/10/2017 9:11 AM EDUCATIONAL TECHNOLOGY SPECIALIST Temperature 36.7 C (98 F) 03/26/2013 9:28 AM CDT Respiratory Rate 18 03/26/2013 9:28 AM CDT Oxygen Saturation 98% 03/26/2013 9:28 AM CDT Inhaled Oxygen Concentration - - Weight 106.6 kg (235 lb) 09/10/2017 9:11 AM EDUCATIONAL TECHNOLOGY SPECIALIST Height 188 cm (6' 2) 09/10/2017 9:11 AM EDUCATIONAL TECHNOLOGY SPECIALIST Body Mass Index 30.17 09/10/2017 9:11 AM EDUCATIONAL TECHNOLOGY SPECIALIST Plan of Treatment Not on file Insurance MEDICARE Care Teams Grazing Aide Relationship Specialty Start Date End Date Guero Hutchinson MD [phone] [place] [id number] [place] [id number] PCP - General Urology 11/14/15
--- OUTSIDE RECORDS SUMMARY | 2025-01-11 13:51 | XMS_ITS | Data Portability ---
Author Organization [facility], [facility] Address [address] [place] [address] Care Team Providers Care Whip Sawyer Name Role Phone SHEA DURON Primary Care Provider [phone] Assessment Encounter Date Assessment Date Assessment LastModified [...] [facility], [address], [address], [place], [address], 10/02/2024 11:59:38 urinalysi s, microscop ic [address] [facility], [address], [address], [place], [address], 10/02/2024 11:46:20 culture, urine 2024 025 [place] [facility], [address], [address], [place], [address], 10/04/2024 12:02:22 Referral None recorded. Procedures None recorded. Surgeries laser enucleati on of prostate with morcellat ion (SURG) 2024 025 [email or web address] Not available 10/16/2024 10:36:12 Imaging None recorded. Medication Orders None recorded. Patient TargetsNo targets recorded. Patient Instructions Encounter Date Encounter Id Patient Instructions Last Modified By Organization Details Last Modified Time 09/29/2024 [id number] Impression: 1) Smaller capacity, normal compliant bladder with repeated detrusor instability and incontinence 2) No volitional voiding on pressure/flow. MInimal void on non-invasive testing, with elevated residual. 3) The most probable diagnosis is bladder outlet obstruction, as he does not have myogenic failure. [email or web address] Not available 10/11/2024 11:34:10 10/15/2024 [id number] Benign prostatic hyperplasia with lower urinary tract [...] [hpf] 0 - 2 abnormal Not Available [facility] [address], [place], [address], 10/02/2024 11:59:38 10/02/19 25 10/02/2024 UA MICRO SCOPI C (ABNO RMAL COLOR ) U-RBC PACKED [hpf] 0 - 2 abnormal Not Available [facility] [address] [facility] [address], [place], [address], 10/02/2024 11:59:38 10/02/19 25 10/02/2024 UA MICRO SCOPI C (ABNO RMAL COLOR ) bacteria MANY [hpf] none;r are abnormal Not Available [facility] [address] [facility] [address], [place], [address], 10/02/2024 11:59:38 10/02/19 25 10/02/2024 UA MICRO [...] for provi katy revie w. Not Available [facility] [address] [facility] [address], [place], [address], 10/02/2024 11:59:38 10/02/19 25 10/02/2024 UA MICRO SCOPI C (ABNO RMAL COLOR ) sperm PRESEN T /hpf none-s een abnormal Not Available [facility] [address] [facility] [address], [place], [address], 10/02/2024 11:59:38 10/02/19 25 10/02/2024 URINE CULTU [...] ate 1) Sensi tivit y Ronel sis Langley te 1 ----- ----- ----- ----- ----- [...] s Desk [facility]. S= Susce ptibl e;I= Inter [...] for provi katy revie w. Not Available [facility] [address], [place], [address], 10/04/2024 12:02:22 09/23/19 25 09/23/2024 CT, urogr am No observ ation record ed. [email or web address] [facility] [address], [place], [address], 10/13/2024 08:55:07 Result Notes None recorded. Problems Name Problem SNOMED Code Status Onset Date Resolution Date Notes Provider Name and Address Organization Details Recorded Time Retention of urine 530409567 Active 2024 [facility] 5 12:52:01 Type 2 diabetes mellitus 02891888 Active 2024 [facility] null, [facility] 5 12:52:35 Hypertensiv e disorder 25572216 Active 2024 [facility] null, [facility] 5 12:52:38 Lower urinary tract symptoms due to benign prostatic hypertrophy 8995289284364 1 Active 2024 [facility], [facility] 10:56:02 Problem Notes None recorded. Procedures Surgical History Date Name Laterality Status Provider Name and Address Organization Details Recorded Time 12/01/19 25 Urethral Catheter Change completed Karina Polo [facility] 11/30/2024 15:17:51 10/30/19 25 SWENSON CHANGE completed Claudia Rossi [facility] 10/29/2024 16:42:14 10/16/19 25 COMPLEX VISIT completed Obey Pedraza MD [address] [place] [address],[address], [address], [facility] 10/15/2024 14:26:19 10/07/19 25 Blood Draw/ORGANIZATIONAL PSYCHOLOGIST/PSA RESULTS cancelled Elo Bishop [facility] 10/05/2024 11:50:19 09/29/19 25 Urodynamic Studies completed Dwaine Kong MD [address] [place] [address],[address], [place], [address], [facility] 10/11/2024 11:34:02 09/29/19 25 Swenson Catheter Insertion completed Chelsey Munguia [facility] 09/29/2024 15:46:01 09/09/19 25 Cystoscopy- male completed Obey Pedraza MD [address] [place] [address],[address], [place], [address], [facility] 09/09/2024 11:09:52 09/09/19 25 Past Data Reviewed completed Obey Pedraza MD [address] [facility],[address], [place], [address], [facility] 09/09/2024 09:40:02 01/11/20 24 Colonoscopy completed Kurt [facility] 09/09/2024 10:56:16 Imaging Results None recorded. Procedure Notes None recorded. Medical Equipment None Reported. Allergies Allergen ID Allergen Name Allergen Category Reaction Reaction Severity Criticality Documentation Date Start Date Code Code System Note Provider Name and Address Organization Details Recorded Time 079010 honey bee venom medicatio n Not available Not available Not available 09/01/2024 94358 7 RxNorm [facility] 5 12:51:15 126952 Product containin g penicilli n (product) medicatio n Not available Not available Not available 09/01/2024 47436 8001 SNOMED [facility] 5 12:51:21 Medications Name Sig Start Date Stop [...] Updated DateTime 09/29/2024 187.96 cm Chelsey Munguia [facility] 15:18:31 Date Recorded Body height Body mass index (BMI) Body weight Provider Name and Address Organization Details Last Updated DateTime 10/02/2024 187.96 cm 23.1 kg/m2 52007.63 g Eleni Thomas [facility] 10/02/2024 11:35:02 Date Recorded Body height Provider Name an d Address Organization Details Last Updated DateTime 10/15/2024 187.96 cm Kurt Owens [facility] 13:52:17 Date Recorded Body height Provider Name an d Address Organization Details Last Updated DateTime 10/29/2024 187.96 cm Claudia Rossi [facility] 10/29/2024 16:34:46 Date Recorded Body height Provider Name an d Address Organization Details Last Updated DateTime 11/30/2024 187.96 cm Karina Polo [facility] 11/30/2024 14:53:23 Social History Question Answer Notes LastModified by [employer] Details LastModified Time Tobacco Smoking Status Former Smoker Kurt Owens null, [facility] 09/09/2024 10:55:43 What Is Your [...] Functional Status Question Answer Note LastModified by [employer] Details LastModified Time Do you use any [...] completed Kurt Meath null, [facility] 09/09/2024 10:52:31 zoster recombinant 3 completed Kurt Meath null, [facility] 09/09/2024 10:52:31 zoster recombinant 3 completed Kurt Meath null, [facility] 09/09/2024 10:52:31 Influenza, high-dose, quadrivalent, PF 1 completed Kurt Meath null, [facility] 09/09/2024 10:52:31 Influenza, high-dose, quadrivalent, PF 0 completed Kurt Meath null, [facility] 09/09/2024 10:52:31 Influenza, adjuvanted, quadrivalent, PF 3 completed [facility]ath null, [facility] 09/09/2024 10:52:31 Influenza, adjuvanted, quadrivalent, PF 2 completed Kurt Meath null, [facility] 09/09/2024 10:52:31 COVID-19, mRNA, LNP-S, PF, 30 mcg/0.3 mL dose 1 completed Kurt Meath null, [facility] 09/09/2024 10:52:31 COVID-19, mRNA, LNP-S, PF, 30 mcg/0.3 mL dose 1 completed Kurt Meath null, [facility] 09/09/2024 10:52:31 COVID-19, mRNA, LNP-S, PF, 30 mcg/0.3 mL dose 1 completed Kurt Meath null, [facility] 09/09/2024 10:52:31 COVID-19, mRNA, LNP-S, bivalent, PF, 30 mcg/0.3 mL dose 2 completed Kurt Meath null, [facility] 09/09/2024 10:52:31 RSV, recombinant, protein subunit RSVpreF, adjuvant reconstituted, 0.5 mL, PF 4 completed Kurt Meath null, [facility] 09/09/2024 10:52:31 COVID-19, mRNA, LNP-S, PF, 50 mcg/0.5 mL 4 completed Kurt Meath null, [facility] 09/09/2024 10:52:31 COVID-19, mRNA, LNP-S, PF, 50 mcg/0.5 mL 3 completed Kurt Meath null, [facility] 09/09/2024 10:52:31 pneumococcal polysaccharide PPV23 8 completed Kurt Meath null, [facility] 09/09/2024 10:52:31 Tdap 6 completed Kurt Meath null, [facility] 09/09/2024 10:52:31 Pneumococcal conjugate PCV 13 7 completed Kurt Meath null, [facility] 09/09/2024 10:52:31 zoster live 7 completed Kurt Meath null, [facility] 09/09/2024 10:52:31 Influenza, high-dose, trivalent, PF 8 completed Kurt Meath null, [facility] 09/09/2024 10:52:31 Influenza, high-dose, trivalent, PF 7 completed Kurt Meath null, [facility] 09/09/2024 10:52:31 Influenza, high-dose, trivalent, PF 9 completed Kurt Meath null, [facility] 09/09/2024 10:52:31 Td (adult), 2 Lf tetanus toxoid, preservative free, adsorbed 5 completed Kurt Meath null, [facility] 09/09/2024 10:52:31 Hep A, adult 3 completed Kurt Meath null, [facility] 09/09/2024 10:52:31 typhoid, ViCPs 3 completed Kurt Meath null, [facility] 09/09/2024 10:52:31 influenza, seasonal, intradermal, preservative free 2 completed Kurt Meath null, [facility] 09/09/2024 10:52:31 influenza, seasonal, intradermal, preservative free 1 completed Kurt Meath null, [facility] 09/09/2024 10:52:31 Influenza, split virus, quadrivalent, PF 6 completed Kurt Meath null, [facility] 09/09/2024 10:52:31 Influenza, split virus, quadrivalent, PF 4 completed Kurt Meath null, [facility] 09/09/2024 10:52:31 COVID-19, mRNA, LNP-S, PF, 25 mcg/0.25 mL 5 completed Not Available [facility] 11/30/2024 14:42:49 Past Encounters Encounter ID Performer Location Encounter Start Date Encounter Closed Date Diagnosis/Indication Diagnosis SNOMED-CT Code Diagnosis ICD10 Code Diagnosis Note [id number] MD Dinesh [facility] [address] [place] [address] 09/09/2024 10:45:26 09/09/2024 11:49:30 Lower urinary tract symptoms due to benign prostatic hypertrophy 3127156876 9101 N40.1 Retention of urine 72514 4002 R33.9 Renato hematuria 24906385 5 R31.0 [id number] MD Dinesh [facility] [address] [place] [address] 09/29/2024 12:37:22 10/12/2024 09:16:29 Lower urinary tract symptoms due to benign prostatic hypertrophy 9946949753 9101 N40.1 Retention of urine 90751 4002 R33.9 [id number] MD Dinesh Fish[address] [address] 10/02/2024 11:30:07 10/07/2024 04:01:24 Urinary tract infectious disease 42108176 N39.0 Per UTI/manager strategy protocol. UA/UC today. [id number] MD Dinesh FishChristopher [address] [address] 10/15/2024 13:50:10 10/19/2024 09:45:18 Retention of urine 289214226 R33.9 Lower urin winsome tract symptoms due to benign prostatic hypertrophy 4850209432 9101 N40.1 Renato hematuria 07617361 5 R31.0 [id number] MD Dinesh FishChristopher [address] [address] 10/29/2024 14:34:46 10/29/2024 16:55:37 Retention of urine 378806322 R33.9 [id number] Obey Pedraza MD [address] [address] 11/30/2024 14:41:58 12/02/2024 15:58:16 Retention of urine 137219641 R33.9 Health Concerns Section Related Observation LastModified by Organization Detai ls LastModified Time None Recorded Concern Status LastModified by Organization Details LastModified Time None Recorded Advance Directives Directive None Recorded Payers Insurance Date Sequence Insurance Name Policy Number Policy Bustamante Covered Member ID Bustamante Member ID Guarantor Name 11/27/2024 1 [place] [employer] Suresh Martinez [id number] Suresh Martinez 11/27/2024 2 [place] [id number] Suresh Martinez [id number] Surehs Martinez Notes Date Note Type Note Provider [...] developed gross hematuria and was admitted at [facility] for continuous bladder irrigation.He has [...] evidence of outlet obstruction.He was admitted at [facility] from 10/06/2024 - 10/10/2024 with gross hematuria and clot urinary retention.He required cystoscopy, clot evacuation, and fulguration of bleeding 10/08/2024.He is here today to discuss next steps in management. Obey Pedraza MD [address] [place] [address],[address], [place], [address], [facility] 10/15/2024 14:28:58
--- NOTE | 2025-01-11 14:09 | ED_ITS ---
HPI - Syncope General Time Seen by Provider: 14:09 Date Seen: 01/11/25 Chief Complaint: Syncope/Fainted Stated Complaint: Weakness Time Seen by Provider: 01/11/25 13:58 Source: patient and RN notes reviewed Mode of arrival: wheelchair Limitations: no limitations History of Present Illness HPI narrative: This 75-year-old male was brought of room Clinic where he had syncope with blood draw. They tried multiple times to have him rest and then get back up and he was continuing to feel significantly symptomatic with dizziness. He is having a bladder procedure done in the future and was in for preoperative evaluation. He afterwards had his blood draw. He notes that he will get lightheaded if he watches the needle. He notes he started to feel lightheaded with the blood drawn he did have syncope. There was no injury, no fall. At no point has felt any heart symptoms, no shortness of breath, no stroke symptoms. He admits that just lying in the bed he is already starting to feel better. He had breakfast this morning then did not drink anything after that. His catheter will sometimes leak based on positioning in he did not want to be leaking urine comi ng in for the appointment today. He has not eaten lunch either. The CBC done at his preoperative shows a normal white blood count 8910, hemoglobin improved at 12.3, normal platelet count at [id number]. Related Data Previous Rx's ?Medication ?Instructions ?Recorded epinephrine 0.3 mg/0.3 mL 0.3 ml IM .As Needed as need ed PRN 07/03/23 injection, auto-injector anaphylaxis #2 ea apixaban 5 mg tablet (Eliquis) 5 mg PO BID #60 tabs atorvastatin 40 mg tablet 40 mg PO HS #90 tabs 5 diltiazem HCl 60 mg 60 mg PO BID #60 caps capsule,extended release 12 hr glipizide 10 mg tablet, extended 10 mg PO DAILY #90 ta bs 01/11/25 release 24 hr lisinopril 10 mg tablet 10 mg PO DAILY #90 tabs 10/06 metformin 500 mg tablet,extended 1,000 mg (2 x 500 mg) PO QDAY #180 01/11/25 release 24 hr tabs Allergies Allergy/AdvReac Type Severity Reaction Status Date / Time bee venom protein (honey bee) Allergy Verified 01/11/25 12:39 Penicillins Allergy Verified 01/11/25 12:39 tamsulosin (From Flomax) AdvReac Intermediate orthostatic Verified 01/11/25 12:39 hypotension Review of Systems Status of ROS: Reports: 6 or more systems reviewed and unremarkable except as noted in History and below [facility] Medical History Stenosis of right carotid artery (01/03/21) ?I65.21 - Occlusion and stenosis of right carotid artery (ICD-10) Hypercholesterolemia (04/18/15) ?E78.00 - Pure hypercholesterolemia, unspecified (ICD-10) Hematuria (04/18/15) ?R31.9 - Hematuria, unspecified (ICD-10) Benign neoplasm of colon (05/28/07) ?D12.6 - Benign neoplasm of colon, unspecified (ICD-10) Anaphylactic reaction to bee sting (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/15) ?T63.441A - Toxic effect of venom of bees, accidental (unintentional), initial encounter (ICD-10) ?T78.2XXA - Anaphylactic shock, unspecified, initial encounter (ICD-10) Allergic rhinitis (12/11/05) ?J30.9 - Allergic rhinitis, unspecified (ICD-10) Atrial fibrillation ?I48.91 - Unspecified atrial fibrillation (ICD-10) Hyponatremia ?E87.1 - Hypo-osmolality and hyponatremia (ICD-10) Chronic hyponatremia ?E87.1 - Hypo-osmolality and hyponatremia (ICD-10) Right lumbar radiculopathy ?M54.16 - Radiculopathy, lumbar region (ICD-10) Leukocytosis ?D72.829 - Elevated white blood cell count, unspecified (ICD-10) Lumbar radiculopathy ?M54.16 - Radiculopathy, lumbar region (ICD-10) Chronic low back pain ?M54.50 - Low back pain, unspecified (ICD-10) ?G89.29 - Other chronic pain (ICD-10) Cerebrovascular accident (CVA) (07/2020) ?I63.9 - Cerebral infarction, unspecified (ICD-10) Bladder cancer (2013) ?C67.9 - Malignant neoplasm of bladder, unspecified (ICD-10) Allergic to bees ?Z91.030 - Bee allergy status (ICD-10) Adenomatous polyp of colon ?D12.6 - Benign neoplasm of colon, unspecified (ICD-10) Gout ?M10.9 - Gout, unspecified (ICD-10) Hypertension ?I10 - Essential (primary) hypertension (ICD-10) Diabetes mellitus ?E11.9 - Type 2 diabetes mellitus without complications (ICD-10) Abnormal gait ?R26.9 - Unspecified abnormalities of gait and mobility (ICD-10) Surgical History History of amputation of toe ?Z89.429 - Acquired absence of other toe(s), unspecified side (ICD-10) History of colonoscopy ?Z98.890 - Other specified postprocedural states (ICD-10) History of tonsillectomy (1968) ?Z90.89 - Acquired absence of other organs (ICD-10) History of right-sided carotid endarterectomy ?Z98.890 - Other specified postprocedural states (ICD-10) Social History Narrative: SOCIAL HISTORY: He is single. Retired. One daughter living in [facility] that he does not see much. No longer working at [employer]. No longer working for the [employer]. 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 Code status is full. He does not want prolonged life support. His nephew, Adrien Araiza, of [place] is [facility] [employer] of shop tailor apprentice HABITS: Sporadic walking for exercise. Sporadic smoking in the past. He denies smoking at this point. No alcohol or recreational drug use. FAMILY HISTORY: No changes. Parents both . He did not know them well. Father around 80 of unknown cause. Mother around 70 of unknown cancer. Three sisters all living with borderline diabetes otherwise healthy. What is your current living situation?: I presently have a place to live Problems where you live: no known problems Problems where you live details: N/A In the past 12 months, utilities in danger of being shut off: no In past 12 months, lack of transportation kept you from medical appts, meetings, work, or getting things needed for daily living: no In the past 12 mos, have been you worried that your food would run out before you had money to buy more?: never true In the past 12 mos, the food you bought just didn't last and you didn't have money to buy more?: never true Highest level of school completed/degree received: high school graduate Smoking Status: Former smoker What tobacco products do you use: cigarettes Smoking quit date/years: <= 15 years ago Do you use any of these nicotine containing products: None Second hand tobacco smoke exposure: No How often do you have a drink containing alcohol: never AUDIT-C Alcohol total score: 0 Non-prescribed substance use: marijuana (any form) How often does anyone, including family, friends and others, physically hurt you : never How often does anyone, including family, friends and others, insult or talk down to you: never How often does anyone, including family, friends and others, threaten you with harm: never How often does anyone, including family, friends and others, scream or curse at you: never service: Yes Exam Const: Vital Signs, click to edit/add: Vital Signs - 24 hr 01/11/25 13:50 01/11/25 14:15 Temperature 97.4 F L Pulse Rate [Pulse Oximeter] 53 L Respiratory Rate 16 Blood Pressure [Ri ght Upper Arm] 106/58 L Pulse Oximetry 99 98 Oxygen Delivery Me thod Room Air Patient was pale appearing on arrival, did see him go back in the wheelchair. When I went to see him in bed, he had good coloration in his face and cheeks, had significantly noticeable change. He had conjugate gaze, clear sclera, symmetrical facial function. Speech was normal. Lungs were clear, good air entry, wheeze or crackles. CV regular rate and rhythm, no murmur, normal S1-S2. Abdomen soft, nontender, nondistended. Strength and sensation normal and symmetrical throughout upper and lower extremities, no tremors, no dysmetria. No gross neurologic deficits noted. Documenting provider has reviewed patient's vital signs: yes Course Course ED Course: Patient is going to receive some IV fluids and will observe here. His CBC is back and looks reassuring. Will review his basic metabolic panel that is pending. Would not do further testing at this point. He had classic vasovagal syncope with blood draw. He just had some prolonged symptomatology. He absolutely is already starting to feel better, his color is improving just as he sat here. He had no chest pain, no shortness of breath. Just felt lightheaded like he was going to pass out and actually did. He has no neurologic deficits. He admittedly did not drink much as he did not want have any catheter leakage. Reevaluation(s) Time of Reevaluation #1: 15:50 Reevaluation #1: Around this time nursing staff alerted me that patient was up ambulatory in asymptomatic, feeling fine and back to baseline. Will discharge to home. Nursing staff did do orthostatic blood pressures prior to discharge, lying blood pressure was 170/82 with heart rate of 57 and no symptoms, sitting 177/82 with pulse 58, no symptoms, standing blood pressure 181/86 with a pulse 77 and no symptoms. His basic metabolic panel from clinic today was normal, glucose was 108. He did have a hemoglobin A1c which was mildly up at 7.1%. Vital Signs Vital signs: Initial Vital Signs Temperature 97.4 F L 01/11/25 13:50 Temperature Source Temporal Artery Scan 01/11/25 13:50 Pulse Rate 53 L 01/11/25 13:50 Pulse Rhythm Regular 01/11/25 13:50 Respiratory Rate 16 01/11/25 13:50 Blood Pressure 106/58 L 01/11/25 13:50 Blood Pressure Mean 74 01/11/25 13:50 Blood Pressure Position Sitting 01/11/25 13:50 Pulse Oximetry 99 01/11/25 13:50 Oxygen Delivery Method Room Air 01/11/25 13:50 Vital Signs Temperature 97.4 F L 01/11/25 13:50 Pulse Rate 53 L 01/11/25 13:50 Respiratory Rate 16 01/11/25 13:50 Blood Pressure 106/58 L 01/11/25 13:50 Pulse Oximetry 99 01/11/25 13:50 Oxygen Delivery Method Room Air 01/11/25 13:50 Temperature 97.4 F L 01/11/25 13:50 Pulse Rate 53 L 01/11/25 13:50 Respiratory Rate 16 01/11/25 13:50 Blood Pressure 106/58 L 01/11/25 13:50 Pulse Oximetry 98 01/11/25 14:15 Oxygen Delivery Method Room Air 01/11/25 13:50 Medications Administered Medications: Discontinued Medications Generic Name Dose Route Start Last Admin Trade Name Saman PRN Reason Stop Dose Admin Sodium Chloride 1,000 mls @ 1,000 mls/hr 01/11/25 14:16 01/11/25 14:24 0.9 % Sodium Chloride 1000 Ml IV 01/11/25 15:15 1,000 mls/hr .Q1H CAMERON Administration MDM - Syncope ECG Data Attestation: I personally reviewed and interpreted this ECG as follows: (Sinus bradycardia, 57 beats per minute. Q-waves anteriorly in V2 and V3 with out any active ST segment changes, isolated flipped T-wave in lead V3. Similar to prior EKGs.) ECG interpretation date: 01/11/25 ECG interpretation time: 14:10 Prior ECG tracings: available for review Discharge Plan Discharge Clinical Impression: Syncope, vasovagal Patient Disposition: Home, Self-Care Condition: Stable Instructions: Syncope (ED) Additional Instructions: Recommend increasing hydration status and making sure you have eaten appropriately with future blood draws or medical procedures that cause you anxiety. Stay hydrated today. If you have any further episodes not associated with medical procedures, you would need further evaluation. Prescriptions: No Action epinephrine 0.3 mg/0.3 mL auto-injector 0.3 ml IM .As Needed as needed PRN (Reason: anaphylaxis) Qty: 2 0RF atorvastatin 40 mg tablet 40 mg PO HS Qty: 90 3RF diltiazem HCl 60 mg capsule,extended release 12 hr 60 mg PO BID Qty: 60 5RF glipizide 10 mg tablet extended release 24hr 10 mg PO DAILY Qty: 90 3RF lisinopril 10 mg tablet 10 mg PO DAILY Qty: 90 3RF metformin 500 mg tablet extended release 24 hr 1,000 mg PO QDAY Qty: 180 3RF Eliquis 5 mg tablet 5 mg PO BID Qty: 60 10RF Follow Up/Referrals: Santi Juarez MD [Primary Care Provider, Family Practice] Stand Alone Forms: MyHealth Info Instructions
[2025-01-11] MEDS: 0.9 % SODIUM CHLORIDE 1000 ml 1,000 ML IV (14:24)
== END 2025-01-11 16:11 | disposition home or self-care (01) ==
PROVIDERS: Emergency Provider Family Medicine; PCP Family Medicine
DX: R55 Syncope and collapse (principal)
CPT/HCPCS: 94761; 99283; J7030

== ENCOUNTER 2025-02-09 18:09 | Emergency (ER) | payer MEDICARE, BC, SELFPAY ==
--- OUTSIDE RECORDS SUMMARY | 2025-02-09 18:11 | XMS_ITS | Clinical Summary ---
Author Organization [facility] Address [address] [facility] 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 Temperature 36.7 C (98 F) 03/26/2013 9:28 AM CDT Respiratory Rate 18 03/26/2013 9:28 AM CDT Oxygen Saturation 98% 03/26/2013 9:28 AM CDT Inhaled Oxygen Concentration - - Weight 106.6 kg (235 lb) 09/10/2017 9: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
--- OUTSIDE RECORDS SUMMARY | 2025-02-09 18:12 | XMS_ITS | Data Portability ---
Author Organization [facility], [facility] Address [address] [place] [address] Care Team Providers Care Sea Kayaking Guide Name Role Phone SHEA DURON Primary Care [...] Organization Details Last Modified Time Details Appointments POST OP 10 2024 11:40A M Obey Pedraza MD Not available Not available Not available Lab urinalysi s, dipstick - Per UTI protocol 2024 025 [facility] [place] [facility], [address], [place], [address], 10/02/2024 11:59:38 urinalysi s, microscop ic [address] [facility], [address], [address], [place], [address], 10/02/2024 11:46:20 culture, urine 2024 025 [facility], [address], [address], [place], [address], 10/04/2024 12:02:22 Referral None recorded. Procedures None recorded. Surgeries laser enucleati on of prostate with morcellat ion (SURG) 2024 025 MELIZA Not available 02/04/2025 10:03:36 Imaging None recorded. Medication Orders None recorded. Patient TargetsNo targets recorded. Patient Instructions Encounter Date Encounter Id Patient Instructions Last Modified By Organization Details Last Modified Time 10/15/2024 [id number] Benign prostatic hyperplasia with lower urinary tract [...] [hpf] 0 - 2 abnormal Not Available [facility] [address], [place], [address], 10/02/2024 11:59:38 10/02/19 25 10/02/2024 UA MICRO SCOPI C (ABNO RMAL COLOR ) U-RBC PACKED [hpf] 0 - 2 abnormal Not Available [facility] [address], [place], [address], 10/02/2024 11:59:38 10/02/19 25 10/02/2024 UA MICRO SCOPI C (ABNO RMAL COLOR ) bacteria MANY [hpf] none;r are abnormal Not Available [facility] [address], [place], [address], 10/02/2024 11:59:38 10/02/19 25 10/02/2024 UA MICRO [...] for provi katy revie w. Not Available [facility] [address], [place], [address], 10/02/2024 11:59:38 10/02/19 25 10/02/2024 UA MICRO SCOPI C (ABNO RMAL COLOR ) sperm PRESEN T /hpf none-s een abnormal Not Available [facility] [address], [place], [address], 10/02/2024 11:59:38 10/02/19 25 10/02/2024 URINE CULTU [...] ate 1) Sensi tivit y Ronel sis [place] te 1 ----- ----- ----- ----- ----- [...] s Desk Refer ence or from the [facility]. S= Susce ptibl e;I= Inter [...] for provi katy revie w. Not Available [facility] [address], [place], [address], 10/04/2024 12:02:22 09/23/19 25 09/23/2024 CT, urogr am No observ ation record ed. [email or web address] [facility] [address], [place], [address], 10/13/2024 08:55:07 Result Notes None recorded. Problems Name Problem SNOMED Code Status Onset Date Resolution Date Notes Provider Name and Address Organization Details Recorded Time Retention of urine 500779998 Active [address] [facility] 5 12:52:01 Type 2 diabetes mellitus 78384831 Active 2024 Kurt rajan [place] 5 12:52:35 Hypertensiv e disorder 54481647 Active 2024 Kurt rajan, [facility] 12:52:38 Lower urinary tract symptoms due to benign prostatic hypertrophy 3770107584798 1 Active 2024 Kurt rajan, [facility] 10:56:02 Problem Notes None recorded. Procedures Surgical History Date Name Laterality Status Provider Name and Address Organization Details Recorded Time 01/29/20 25 Fill and Pull/Voiding Trial/TOV completed Britt Kennedy [facility] 01/28/2025 13:02:59 01/27/20 25 LASER ENUCLEATION OF PROSTATE WITH MORCELLATION (SURG) completed Dagmar Pride [facility] 02/04/2025 10:03:41 12/01/19 25 Urethral Catheter Change completed Karina Polo [facility] 11/30/2024 15:17:51 10/30/19 25 SWENSON CHANGE completed Claudia Rossi [facility] 10/29/2024 16:42:14 10/16/19 25 COMPLEX VISIT completed Obey Pedraza MD [address] [place] [address],[address], [address], [facility] 10/15/2024 14:26:19 10/07/19 25 Blood Draw/COMMUNITY RESOURCE OFFICER/PSA RESULTS cancelled Elo Bishop [facility] 10/05/2024 11:50:19 09/29/19 25 Urodynamic Studies completed Dwaine Kong MD [address] [place] [address],[address], [address], [facility] 10/11/2024 11:34:02 09/29/19 25 Swenson Catheter Insertion completed Chelsey Munguia [facility] 09/29/2024 15:46:01 09/09/19 25 Cystoscopy- male completed Obey Pedraza MD [address] [place] [address],[address], [address], [facility] 09/09/2024 11:09:52 09/09/19 25 Past Data Reviewed completed Obey Pedraza MD [address] [place] [address],[address], [address], [facility] 09/09/2024 09:40:02 01/11/20 24 Colonoscopy completed [facility] 09/09/2024 10:56:16 Imaging Results None recorded. Procedure Notes None recorded. Medical Equipment None Reported. Allergies Allergen ID Allergen Name Allergen Category Reaction Reaction Severity Criticality Documentation Date Start Date Code Code System Note Provider Name and Address Organization Details Recorded Time 983668 honey bee venom medicatio n Not available Not available Not available 09/01/2024 46703 7 RxNorm [facility] 12:51:15 454886 Product containin g penicilli n (product) medicatio n Not available Not available Not available 09/01/2024 63071 8001 SNOMED [facility] 12:51:21 Medications Name Sig Start Date Stop [...] Updated DateTime 10/02/2024 187.96 cm 23.1 kg/m2 07560.[address] [facility] 10/02/2024 11:35:02 Date Recorded Body height Provider Name an d Address Organization Details Last Updated DateTime 10/15/[address] [facility] 13:52:17 Date Recorded Body height Provider Name an d Address Organization Details Last Updated DateTime 10/29/2024 [address] [facility] 10/29/2024 16:34:46 Date Recorded Body height Provider Name an d Address Organization Details Last Updated DateTime 11/30/2024 [address] [facility] 11/30/2024 14:53:23 Date Recorded Body height Provider Name an d Address Organization Details Last Updated DateTime 01/28/2025 [address] [facility] 01/28/2025 13:17:03 Social History Question Answer Notes LastModified by Organizat ion Details LastModified Time Tobacco Smoking Status Former Smoker Kurt Owens [facility] 09/09/2024 10:55:43 What Is Your Level Of Caffeine Consumption? None Information not available 09/09/2024 When Did You Quit Smoking? 6-10yearssin celastcigare tte Information not available 09/09/2024 What Was The Date Of Your Most Recent Tobacco Screening? 01/28/2025 [email or web address] Information not available 01/28/2025 How Much Tobacco Do You Smoke? No [...] trivalent, PF 4 completed Kurt Meath null, [facility] 09/09/2024 10:52:31 zoster recombinant 3 completed Kurt Meath null, [facility] 09/09/2024 10:52:31 zoster recombinant 3 completed Kurt Meath null, [facility] 09/09/2024 10:52:31 Influenza, high-dose, quadrivalent, PF 1 completed Kurt Meath null, [facility] 09/09/2024 10:52:31 Influenza, high-dose, quadrivalent, PF 0 completed Kurt Meath null, [facility] 09/09/2024 10:52:31 Influenza, adjuvanted, quadrivalent, PF 3 completed Kurt Meath null, [facility] 09/09/2024 10:52:31 Influenza, adjuvanted, quadrivalent, PF 2 completed Kurt Meath null, [facility] 09/09/2024 10:52:31 COVID-19, mRNA, LNP-S, PF, 30 mcg/0.3 mL dose 1 completed Kurt Meath null, [facility] 09/09/2024 10:52:31 COVID-19, mRNA, LNP-S, PF, 30 mcg/0.3 mL dose 1 completed [facility] null, [facility] 09/09/2024 10:52:31 COVID-19, mRNA, LNP-S, PF, 30 mcg/0.3 mL dose 1 completed Kurt Meath null, [facility] 09/09/2024 10:52:31 COVID-19, mRNA, LNP-S, bivalent, PF, 30 mcg/0.3 mL dose 2 completed Kurt Meath null, [facility] 09/09/2024 10:52:31 RSV, recombinant, protein subunit RSVpreF, adjuvant reconstituted, 0.5 mL, PF 4 completed Kurt Meath null, [facility] 09/09/2024 10:52:31 COVID-19, mRNA, LNP-S, PF, 50 mcg/0.5 mL 4 completed Kurt Meath null, [facility] 09/09/2024 10:52:31 COVID-19, mRNA, LNP-S, PF, 50 mcg/0.5 mL 3 completed Kurt Meath null, [facility] 09/09/2024 10:52:31 pneumococcal polysaccharide PPV23 8 completed Kurt Meath null, [facility] 09/09/2024 10:52:31 Tdap 6 completed Kurt Meath null, [facility] 09/09/2024 10:52:31 Pneumococcal conjugate PCV 13 7 completed Kurt Meath null, [facility] 09/09/2024 10:52:31 zoster live 7 completed Kurt Meath null, [facility] 09/09/2024 10:52:31 Influenza, high-dose, trivalent, PF 8 completed Kurt Meath null, [facility] 09/09/2024 10:52:31 Influenza, high-dose, trivalent, PF 7 completed Kurt Meath null, [facility] 09/09/2024 10:52:31 Influenza, high-dose, trivalent, PF 9 completed Kurt Meath null, [facility] 09/09/2024 10:52:31 Td (adult), 2 Lf tetanus toxoid, preservative free, adsorbed 5 completed Kurt Meath null, [facility] 09/09/2024 10:52:31 Hep A, adult 3 completed Kurt Meath null, [facility] 09/09/2024 10:52:31 typhoid, ViCPs 3 completed Kurt Meath null, [facility] 09/09/2024 10:52:31 influenza, seasonal, intradermal, preservative free 2 completed Kurt Meath null, [facility] 09/09/2024 10:52:31 influenza, seasonal, intradermal, preservative free 1 completed Kurt Meath null, [facility] 09/09/2024 10:52:31 Influenza, split virus, quadrivalent, PF 6 completed Kurt Meath null, [facility] 09/09/2024 10:52:31 Influenza, split virus, quadrivalent, PF 4 completed [facility]ath null, [facility] 09/09/[facility]24 10:52:31 COVID-19, mRNA, LNP-S, PF, 25 mcg/0.25 mL 5 completed Not Available [facility] 01/28/2025 10:12:20 Past Encounters Encounter ID Performer Location Encounter Start Date Encounter Closed Date Diagnosis/Indication Diagnosis SNOMED-CT Code Diagnosis ICD10 Code Diagnosis Note [id number] MD Dinesh Fish_Christopher melendez [address] [place] [address] 09/09/2024 10:45:26 09/09/2024 11:49:30 Lower urinary tract symptoms due to benign prostatic hypertrophy 2937802534 9101 N40.1 Retention of urine 59105 4002 R33.9 Renato hematuria 84925733 5 R31.0 [id number] MD Geovanni Fish [address] [place] [address] 09/29/2024 12:37:22 10/12/2024 09:16:29 Lower urinary tract symptoms due to benign prostatic hypertrophy 3663675553 9101 N40.1 Retention of urine 27040 4002 R33.9 [id number] MD Geovanni Fish [address] [place] [address] 10/02/2024 11:30:07 10/07/2024 04:01:24 Urinary tract infectious disease 94171693 N39.0 Per UTI/repair electric motor assembler protocol. UA/UC today. [id number] MD Dinesh Fish[address] [address] 10/15/2024 13:50:10 10/19/2024 09:45:18 Retention of urine 435159548 R33.9 Lower urin winsome tract symptoms due to benign prostatic hypertrophy 2518967165 9101 N40.1 Renato hematuria 05170456 5 R31.0 [id number] MD Geovanni Fish [address] [address] 10/29/2024 14:34:46 10/29/2024 16:55:37 Retention of urine 564960697 R33.9 [id number] MD Dinesh FishNii[address] [address] 11/30/2024 14:41:58 12/02/2024 15:58:16 Retention of urine 045500833 R33.9 [id number] MD Dinesh FishChristopher [address] [address] 01/28/2025 10:11:32 02/01/2025 15:43:45 Retention of urine 214973149 R33.9 Health Concerns Section Related Observation LastModified by Organization Detai ls LastModified Time None Recorded Concern Status LastModified by Organization Details LastModified Time None Recorded Advance Directives Directive None Recorded Payers Insurance Date Sequence Insurance Name Policy Number Policy Bustamante Covered Member ID Bustamante Member ID Guarantor Name 01/23/2025 1 [place] [employer] Suresh Martinez [id number] Suresh Martinez 02/01/2025 2 [facility] [id number] Suresh Martinez [id number] Suresh Martinez Notes Date Note Type Note [...] developed gross hematuria and was admitted at [facility] for continuous bladder irrigation.He has [...] evidence of outlet obstruction.He was admitted at [facility] from 10/06/2024 - 10/10/2024 with gross hematuria and clot urinary retention.He required cystoscopy, clot evacuation, and fulguration of bleeding 10/08/2024.He is here today to discuss next steps in management. Obye Pedraza MD [address] [place] [address],[address], [place], [address], [facility] 10/15/2024 14:28:58
--- OUTSIDE RECORDS SUMMARY | 2025-02-09 18:12 | XMS_ITS | Continuity of Care Document ---
Author Organization [facility] Address [address] [place] [address] Care Team Providers Care Manager Cardiac Cath Name Role Phone SHEA DURON Primary Care Provider [phone] Assessment No assessment recorded. Plan of Treatment Reminders Order Date Submit Date Provider Last Modified By Organization Details Last Modified Time Details Appointments POST OP 10 025 11:40AM Obey Pedraza MD Not available Not available Not available Lab None record ed. Referral None record ed. Procedures None record ed. Surgeries None record ed. Imaging None record ed. Medication Orders None record ed. Patient TargetsNo targets recorded. Patient InstructionsNo instructions recorded. Reason for Referral None Reported. Problems Name Problem SNOMED Code Status Onset Date Resolution Date Notes Provider Name and Address Organization Details Recorded Time Retention of urine 865136860 Active 2024 Kurt rajan [facility] 5 12:52:01 Type 2 diabetes mellitus 84718939 Active 2024 Kurt rajan [facility] 5 12:52:35 Hypertensiv e disorder 33282178 Active 2024 Kurt rajan [facility] 5 12:52:38 Lower urinary tract symptoms due to benign prostatic hypertrophy 4280019249393 1 Active 2024 Kurt rajan [facility] 5 10:56:02 Problem Notes None recorded. Procedures Surgical History Date Name Laterality Status Provider Name and Address Organization Details Recorded Time 01/29/20 25 Fill and Pull/Voiding Trial/TOV completed Britt Kennedy [facility] 01/28/2025 13:02:59 01/27/20 25 LASER ENUCLEATION OF PROSTATE WITH MORCELLATION (SURG) completed Dagmar Pride [facility] 02/04/2025 10:03:41 12/01/19 25 Urethral Catheter Change completed Karina Polo [facility] 11/30/2024 15:17:51 10/30/19 25 SWENSON CHANGE completed Claudia Rossi [facility] 10/29/2024 16:42:14 10/16/19 25 COMPLEX VISIT completed Obey Pedraza MD [address] [place] [address],[address], [place], [address], [facility] 10/15/2024 14:26:19 10/07/19 25 Blood Draw/JOB SERVICE CONSULTANT/PSA RESULTS cancelled Elo Bishop [facility] 10/05/2024 11:50:19 09/29/19 25 Urodynamic Studies completed Dwaine Kong MD [address] [place] [address],[address] [place] [address], [address], [facility] 10/11/2024 11:34:02 09/29/19 25 Swenson Catheter Insertion completed Chelsey [facility] 09/29/2024 15:46:01 09/09/19 25 Cystoscopy- male completed Obey Pedraza MD [address] [place] [address],[address], [place], [address], [facility] 09/09/2024 11:09:52 09/09/19 25 Past Data Reviewed completed Obey Pedraza MD [address] [place] [address],[facility] [address], [place], [address], [facility] 09/09/2024 09:40:02 01/11/20 24 Colonoscopy completed Kurt Owens [facility] 09/09/2024 10:56:16 Imaging Results None recorded. Procedure Notes None recorded. Medical Equipment None Reported. Allergies Allergen ID Allergen Name Allergen Category Reaction Reaction Severity Criticality Documentation Date Start Date Code Code System Note Provider Name and Address Organization Details Recorded Time 583154 honey bee venom medicatio n Not available Not available Not available 09/01/2024 75803 7 RxNorm Kurt rajan, [facility] 12:51:15 328819 Product containin g penicilli n (product) medicatio n Not available Not available Not available 09/01/2024 98732 8001 SNOMED Kurt rajan [facility] 12:51:21 Medications Name Sig Start Date [...] Last Updated DateTime 01/28/2025 187.96 cm Britt Kennedy [facility] y 01/28/2025 13:17:03 Social History Question Answer Notes LastModified by Organizat ion Details LastModified Time Tobacco Smoking Status Former Smoker Kurt rajan [facility] 09/09/2024 10:55:43 What Is Your Level Of Caffeine Consumption? None Information not available 09/09/2024 When Did You Quit Smoking? 6-10yearssin celastcigare tte Information not available 09/09/2024 What Was The Date Of Your Most Recent Tobacco Screening? 01/28/2025 [email or web address] Information not available 01/28/2025 How Much Tobacco [...] trivalent, PF 4 completed Kurt Meath null, [facility] 09/09/2024 10:52:31 zoster recombinant 3 completed Kurt Meath null, [facility] 09/09/2024 10:52:31 zoster recombinant 3 completed Kurt Meath null, [facility] 09/09/2024 10:52:31 Influenza, high-dose, quadrivalent, PF 1 completed Kurt Meath null, [facility] 09/09/2024 10:52:31 Influenza, high-dose, quadrivalent, PF 0 completed Kurt Meath null, [facility] 09/09/2024 10:52:31 Influenza, adjuvanted, quadrivalent, PF 3 completed Kurt Meath null, [facility] 09/09/2024 10:52:31 Influenza, adjuvanted, quadrivalent, PF 2 completed Kurt Meath null, [facility] 09/09/2024 10:52:31 COVID-19, mRNA, LNP-S, PF, 30 mcg/0.3 mL dose 1 completed Kurt Meath null, [facility] 09/09/2024 10:52:31 COVID-19, mRNA, LNP-S, PF, 30 mcg/0.3 mL dose 1 completed Kurt Meath null, [facility] 09/09/2024 10:52:31 COVID-19, mRNA, LNP-S, PF, 30 mcg/0.3 mL dose 1 completed Kurt Meath null, [facility] 09/09/2024 10:52:31 COVID-19, mRNA, LNP-S, bivalent, PF, 30 mcg/0.3 mL dose 2 completed Kurt Meat null, [facility] 09/09/2024 10:52:31 RSV, recombinant, protein subunit RSVpreF, adjuvant reconstituted, 0.5 mL, PF 4 completed Kurt Meath null, [facility] 09/09/2024 10:52:31 COVID-19, mRNA, LNP-S, PF, 50 mcg/0.5 mL 4 completed Kurt Meath null, [facility] 09/09/2024 10:52:31 COVID-19, mRNA, LNP-S, PF, 50 mcg/0.5 mL 3 completed Kurt Meath null, [facility] 09/09/2024 10:52:31 pneumococcal polysaccharide PPV23 8 completed Kurt Meath null, [facility] 09/09/2024 10:52:31 Tdap 6 completed Kurt Meath null, [facility] 09/09/2024 10:52:31 Pneumococcal conjugate PCV 13 7 completed Kurt Meath null, [facility] 09/09/2024 10:52:31 zoster live 7 completed Kurt Meath null, [facility] 09/09/2024 10:52:31 Influenza, high-dose, trivalent, PF 8 completed Kurt Meath null, [facility] 09/09/2024 10:52:31 Influenza, high-dose, trivalent, PF 7 completed Kurt Meath null, [facility] 09/09/2024 10:52:31 Influenza, high-dose, trivalent, PF 9 completed Kurt Meath null, [facility] 09/09/2024 10:52:31 Td (adult), 2 Lf tetanus toxoid, preservative free, adsorbed 5 completed Kurt Meath null, [facility] 09/09/2024 10:52:31 Hep A, adult 3 completed Kurt Meath null, [facility] 09/09/2024 10:52:31 typhoid, ViCPs 3 completed Kurt Meath null, [facility] 09/09/2024 10:52:31 influenza, seasonal, intradermal, preservative free 2 completed Kurt Meath null, [facility] 09/09/2024 10:52:31 influenza, seasonal, intradermal, preservative free 1 completed Kurt Meath null, [facility] 09/09/2024 10:52:31 Influenza, split virus, quadrivalent, PF 6 completed Kurt Meath null, [facility] 09/09/2024 10:52:31 Influenza, split virus, quadrivalent, PF 4 completed Kurt Meath null, [facility] 09/09/2024 10:52:31 COVID-19, mRNA, LNP-S, PF, 25 mcg/0.25 mL 5 completed Not Available [facility] 01/28/2025 10:12:20 Past Encounters Encounter ID Performer Location Encounter Start Date Encounter Closed Date Diagnosis/Indication Diagnosis SNOMED-CT Code Diagnosis ICD10 Code Diagnosis Note [id number] Obey Pedraza MD [facility] [address] [address] 01/28/2025 10:11:32 02/01/2025 15:43:45 Retention of urine 202364640 R33.9 Health Concerns Section Related Observation LastModified by Organization Detai ls LastModified Time None Recorded Concern Status LastModified by Organization Details LastModified Time None Recorded Payers Encounter Date Sequence Insurance Name Policy Number Policy Bustamante Covered Member ID Bustamante Member ID Guarantor Name 01/28/2025 1 [place] [facility] [employer] [facility] Suresh Martinez [id number] Suresh Martinez 01/28/[address] [facility] [id number] Suresh Martinez [id number] Suresh Martinez
--- OUTSIDE RECORDS SUMMARY | 2025-02-09 18:12 | XMS_ITS | Clinical Summary ---
Author Organization [facility] Address [address] [place] [address] Care Team Providers Care Airport Security Screener Name Role Phone Santi Juarez MD Primary Care Provider [phone] Allergies Active Allergy Reactions Criticality Noted Date Comments Bee Pollen *Unknown 12/18/2004 Venom-Honey Bee Anaphylaxis High 04/18/2015 Penicillins *Unknown - Follow up needed 04/18/2015 ##No similarities in side chains, very low to no risk of cross-sensitivity to ANCEF. ANW Antimicrobial Stewardship Team 05/2019 Tamsulosin Other - Describe In Comment Field High 09/08/2024 Orthostatic hypotention Medications EPINEPHrine (EpiPen 2-Tae) 0.3 mg/0.3 mL injectionIndicati ons:anaphylaxis Inject 0.3 mg intramuscular each time if needed. Active atorvastatin (LIPITOR) 40 mg tabletIndications :hypercholesterol emia Take by mouth once daily in the evening. Active glipiZIDE extended-release (GLUCOTROL XL) 5 mg Extended-Release tabletIndications :type 2 diabetes mellitus Take by mouth once daily before a meal. Active metFORMIN (GLUCOPHAGE XR) 500 mg Extended-Release tabletIndications :type 2 diabetes mellitus Take 1,000 mg by mouth once daily. Active lisinopriL (PRINIVIL; ZESTRIL) 10 mg tabletIndications :hypertension Take 10 mg by mouth once daily. Active dilTIAZem SR (CARDIZEM SR) 60 mg extended release 12 hr capsuleIndication s:ventricular rate control in atrial fibrillation Take 60 mg by mouth two times daily. Active apixaban 5 mg tabletIndications :prevent thromboembolism in chronic atrial fibrillation Take 1 Tablet (5 mg) by mouth two times daily. 025 Active docusate (Colace) 100 mg capsuleIndication s:Benign prostatic hyperplasia with urinary retention Take 1 Capsule (100 mg) by mouth 2 times daily if needed for Constipation for up to 5 days. 10 Capsule 01/28/20 25 12:38 PM CDT 025 2024 Active tamsulosin (Flomax) 0.4 mg capsuleIndication s:benign prostatic hyperplasia with lower urinary tract sx Take 0.4 mg by mouth once daily after a meal. 2024 Discontinued(* Patient states no longer taking) amLODIPine (Norvasc) 10 mg tabletIndications :hypertension Take 10 mg by mouth once daily. 2024 Discontinued(* Patient states no longer taking) apixaban (ELIQUIS) 5 mg tabletIndications :prevent thromboembolism in chronic atrial fibrillation Take 1 Tablet (5 mg) by mouth two times daily. 025 2024 Discontinued Active Problems Problem Noted Date Diagnosed Date Bladder cancer 01/26/2025 Overview (01/26/2025): -Diagnosed 2013 with nml PSA as of 08/2017 -history of urinary retention Cerebrovascular accident (CVA) 01/26/2025 Chronic hyponatremia 01/26/2025 Overview (01/26/2025): - stable Lumbar radiculopathy 01/26/2025 Type 2 diabetes mellitus with peripheral neuropa thy 01/26/2025 Overview (01/26/2025): -most recent A1c 6.8 -continue glipizide, restart metformin -glucose checks within goal PAF (paroxysmal atrial fibrillation) 10/06/2024 Acute blood [...] Encounters Date Type Department Care Team Description 01/26/2025 11:54 AM CDT - 01/26/2025 3:34 PM CDT Surgery [address] [address] Obey Pedraza MD CYSTOSCOPY, BIPOLAR ENUCLEATION OF PROSTATE 01/26/2025 11:22 AM CDT Anesthesia Event [address] [address] Eulalio Butcher, KAMALA Patel, Cecilia Johnson MD 01/26/2025 9:14 AM CDT - 01/27/2025 1:29 PM CDT Hospital Encounter [address] [address] Obey Pedraza MD Benign prostatic hyperplasia with urinary retention (Primary Dx); Atrial fibrillation, unspecified type (HC) Discharge Disposition: Home Self Care 01/25/2025 Travel from Last 3 Months Immunizations Immunization Administration [...] or isolated from those around you? 0 01/26/2025 Financial Resource Strain Answer Date R ecorded Difficulty of Paying Living Expenses 3 10/06/2024 Difficulty of Paying Living Expenses Not on file 10/06/2024 Food Insecurity Answer Date Recorded Do you worry your food will run out before you are able to buy more? 1 01/26/2025 Transportation Needs Answer Date Record ed Does lack of transportation keep you from medica l appointments? 1 01/26/2025 Does lack of transportation keep you from work, meetings or getting things that you need? 1 01/26/2025 Housing Stability Answer Date Recorded What is your housing situation today? 1 01/26/2025 Interpersonal Safety Answer Date Record ed Are you being hit, kicked, p ushed or yelled at (see row info)? No 01/26/2025 Interpersonal Safety Abuse 12 - 18 Not on file 01/26/2025 Interpersonal Safety Ambulatory Vulnerability No t on file 01/26/2025 Utilities Answer Date Recorded Do you have trouble paying f or utilities (for example, heat, electricity, water, phone)? 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 Gender Identity Not on file Sexual Orientation Not on file Obstetrics History Last Filed Vital Signs Vital Sign Reading Time Taken Comments Blood Pressure 198/84 01/27/2025 7:35 AM CDT Pulse 93 01/27/2025 7:35 AM CDT Temperature 36.7 C (98.1 F) 01/27/2025 8:00 AM CDT Respiratory Rate 16 01/27/2025 7:35 AM CDT Oxygen Saturation 95% 01/27/2025 7:35 AM CDT Inhaled Oxygen Concentration - - Weight 82.6 kg (182 lb 3.2 oz) 01/26/2025 10:15 AM CDT Height 188 cm (6' 2) 01/25/2025 12:34 PM CDT Body Mass Index 23.39 01/25/2025 12:34 PM CDT Plan of Treatment Health Maintenance Due Date Last Done Comments Depression screening for age 12+ 1964 Hepatitis C screening for age 18-79 01/11/1970 Pneumococcal series for age 50+ (1 of 2 - PCV) 01/11/1971 Zoster (shingles) series for age 50+ (1 of 2) 01/11/1971 Lipids for age 45-75 01/11/1997 RSV vaccine for adults or (1 - Risk 60-74 years 1-dose series) 2012 Tetanus booster 11/17/2014 11/17/2004 Medicare Wellness for age 65+ 01/11/2017 BMI (ht and wt on same day) for age 18+ 12/09/2021 12/09/2020, 12/07/2020 Influenza Vaccine (Season Ended) 2025 05/19/2014, 05/11/2012, 05/14/2011 COVID-19 vaccine series (6 - Pfizer risk season) 2025 11/17/2024, 04/16/2024, 05/08/2022, Additional history exists Colonoscopy through age 75 04/03/202804/03, 04/03/2023, 04/01/2018, Additional history exists (IA) Tdap Completed 11/17/2004 AAA screening age 65-74 Completed 12/09/2020 Hepatitis B series for 19+ Aged Out N o longer eligible based on patient's age to complete this topic Medical Devices Implanted Type Area Reception Device Identifier Shelf Expiration Date Model / Serial / Lot Tissue Pericardium 0.8x8cm Xenosure - [id number] Implanted:Qty: 1 on 01/03/2021 by Warren Peña MD at [facility] Right: Carotid [employer] 08/08/2026 0.8P8 / / [id number] Procedures Procedure Name Priority Date/Time Associated Diagnosis Comments GLUCOSE METER Timed 01/27/2025 11:57 AM CDT POTASSIUM TYLER 01/27/2025 8:28 AM CDT GLUCOSE METER Timed 01/27/2025 7:43 AM CDT BASIC METABOLIC PANEL Early AM 01/27/2025 7:26 AM CDT HEMOGLOBIN Early AM 01/27/2025 7:26 AM CDT GLUCOSE METER Timed 01/26/2025 9:29 PM CDT GLUCOSE METER Timed 01/26/2025 2:15 PM CDT PATH TISSUE EXAM Today 01/26/2025 1:38 PM CDT SUPRAGLOTTIC-LMA Routine 01/26/2025 11:35 AM CDT HOLEP LASER ENUCLEATION OF PROSTATE WITH MORCELLATION Tier 3 01/26/2025 11:07 AM CDT LOWER URINARY TRACT SYMPTOMS DUE TO BENIGN PROSTATIC HYPERTROPHY Case Notes T/F - 3HRSDORSAL LITHOTOMY POSITION Special Needs 6' 2 83.1 kg BMI 23.53DM2 Fragoso catheter in placeHx afibEliquis on hold due to bleeding GLUCOSE METER Timed 01/26/2025 10:08 AM CDT SCAN-CARDIAC STRIP 01/26/2025 12:00 AM CDT COLONOSCOPY 04/03/2023 9:22 AM CDT US ABD AORTA SCREENING Routine 12/09/2020 9:28 AM CDT HTN (hypertension) from Last 3 Months or Most Recently Relevant to Health Maintenance Results * (ABNORMAL) GLUCOSE METER (01/27/2025 11:57 AM CDT) Only the most recent of5 resultswithin the time period is included. GLUCOSE METER 197(H) 65 - 100 mg/dL 01/27/2025 12:02 PM CDT [facility] Blood BLOOD SPECIMEN / Unknown 01/27/2025 11:57 AM CDT 01/27/2025 12:01 PM CDT us Obey Pedraza MD CHEMISTRY Final Res ult [facility] SENDOUT [place] [address]IP [id number] [address] [place] [address] * POTASSIUM (01/27/2025 8:28 AM CDT) POTASSIUM 4.3 3.5 - 5.1 mmol/L 01/27/2025 9:15 AM CDT [facility] Blood BLOOD SPECIMEN / Unknown Venipuncture / Unknown 01/27/2025 8:28 AM CDT 01/27/2025 8:50 AM CDT us Doctor Unknown CHEMISTRY Final Result [facility] SENDOUT [place] ZIP [address] [place] [address] * (ABNORMAL) Hemoglobin (01/27/2025 7:26 AM CDT) HEMOGLOBIN 13.0(L) 13.5 - 17.5 g/dL 01/27/2025 7:35 AM CDT [facility] MCV 81 80 - 100 fL 01/27/2025 7:35 AM T [facility] Blood BLOOD SPECIMEN / Unknown Venipuncture / Unknown 01/27/2025 7:26 AM CDT 01/27/2025 7:31 AM CDT Obey Pedraza MD HEMATOLOGY Final Res ult [facility] SENDOUT INTERNAL ZIP [id number] [place] [address] * (ABNORMAL) Basic Metabolic Panel (01/27/2025 7:26 AM CDT) SODIUM 138 136 - 145 mmol/L 01/27/2025 8:02 AM T [facility] POTASSIUM 01/27/2025 8:02 AM [facility] Comment:Canceled- Specimen H emolyzed, Disposition Per Policy CHLORIDE 102 98 - 107 mmol/L 01/27/2025 8:02 AM [facility] CO2,TOTAL 24 22 - 29 mmol/L 01/27/2025 8:02 AM [facility] ANION GAP 12 5 - 18 01/27/2025 8:02 AM [facility] GLUCOSE 191(H) 70 - 99 mg/dL 01/27/2025 8:02 AM [facility] CALCIUM 9.5 8.8 - 10.4 mg/dL 01/27/2025 8:02 AM [facility] Comment: Reference ranges for this test were updated on 06/16/2024 to reflect our healthy population more accurately. Reference range changes are not retroactively applied to results, but previous results using the same methodology can be interpreted in the context of the new reference range. BUN 14 8 - 23 mg/dL 01/27/2025 8:02 AM CDT [facility] CREATININE 0.92 0.70 - 1.20 mg/dL 01/27/2025 8:02 AM CDT [facility] BUN/CREAT RATIO 15 10 - 20 5 8:02 AM CDT [facility] eGFR 88(L) >90 mL/min/1. 73m2 01/27/2025 8:02 AM CDT [facility] Comment:As of 2021, eG FR is calculated by the CKD-EPI creatinine equation without race adjustment. eGFR can be influenced by muscle mass, exercise, and diet. The reported eGFR is an estimation only and is only applicable if the renal function is stable. Blood BLOOD SPECIMEN / Unknown Venipuncture / Unknown 01/27/2025 7:26 AM CDT 01/27/2025 7:31 AM CDT us Obey Pedraza MD CHEMISTRY Final Res ult [facility] SENDOUT INTERNAL ZIP [id number] [place] [address] * PATH TISSUE EXAM (01/26/2025 1:38 PM CDT) Case Report Pathology Report Case: [id number] Authorizing Provider: Obey Pedraza MD Collected: 01/26/2025 1338 Ordering Location: [facility] Received: 01/26/2025 1359 Pathologist: Pavel Gill MD Specimen: Prostate, Prostate adenoma 01/28/2025 11:12 AM CDT [facility] Final Diagnosis A) PROSTATE, TRANSURETHRAL RESECTION: 1. Nodular epithelial and stromal hyperplasia, consistent with benign prostatic hypertrophy 2. No atypical foci, high grade intraepithelial neoplasia, or malignancy 01/28/2025 11:12 AM CDT [facility] at 1112 CDT Clinical Information BPH 01/28/2025 11:12 AM CDT [facility] Gross Description A) Received fresh, labeled with the patient's name and prostate adenoma, is a 57 gram, 6.8 x 6.7 x 2.7 cm aggregate of multiple pollard rubbery cauterized tissue fragments. Aircraft Load Controller tissue submitted in 11 cassettes. Note: Approximately 20% of the specimen is submitted. SAURAV 01/26/2025 01/28/2025 11:12 AM CDT [facility] Microscopic Description The final diagnosis is based on microscopic examination of appropriate sections of all specimens. 01/28/2025 11:12 AM CDT [facility] Additional Information Interpreted at [facility], Central Laboratory - [address], [place] [address] 01/28/2025 11:12 AM CDT [facility] Tissue SPECIMEN FROM PROSTATE / Unknown 01/26/2025 1:38 PM CDT 01/26/2025 1:59 PM CDT Obey Pedraza MD PATHOLOGY/CYTOLOGY Final Result [facility] [address] [place] [address], [facility] SENDOUT INTERNAL ZIP [id number] [place] [address] * Supraglottic (01/26/2025 11:35 AM CDT) Narrative Lion Torres CRNA Student - 01/26/2025 11:35 AM CDT Lion Torres CRNA Student 01/26/2025 11:35 AM Procedure: Supraglottic Patient location during procedure: OR Supraglottic Airway Properties Mask Ventilation: easy Type: i-gel Tube Size: 5 Insertion Attempts: 1 Placement Verification: auscultation and CO2 detection Assessment Assessment: atraumatic and dentition unchanged us Eimly Edwards MD ANESTHESIA PX NOTE ORDERABLE S Final Result * SCAN-CARDIAC STRIP (01/26/2025 12:00 AM CDT) Narrative 01/26/2025 12:00 AM CDT Ordered by an unspecified provider. us Other Clinical Staff OTHER Final Resul t * COLONOSCOPY (04/03/2023 9:22 AM CDT) 04/03/2023 [...] candidate for conscious sedation. The endoscope [id number] was passed through the anus andadvanced to [...] 9:22 AM Procedure Code(s): --- Professional --- 60981, Colonoscopy, flexible; with removalof tumor(s), polyp(s), or other lesion(s) bysnare technique Diagnosis Code(s): --- Professional --- Z86.010, Personal history of colonicpolyps D12.2, Benign neoplasm of ascending colon K57.30, Diverticulosis of large intestine without perforation or abscess withoutbleeding CPT copyright 2021 [employer]. All rights reserved. The codes documented in this report are preliminary and upon produce manager reviewmay be revised to meet current [...] Gender: M Referring MD: WARREN PEÑA Site: [facility] Study performed: Iliac, (bilateral) Indication [...] study was performed and interpreted by [facility], a service accredited by the Intersocietal Accreditation Commission (IAC/Vascular), www.intersocietal.org/vascular Report generated by [employer]. Final Procedure Note Valdemar Sandoval MD - 12/10/2020 VASCULAR ULTRASOUND REPORT SURESH MOLINA : 1950 Study Date: 12/09/2020 9:05:56 AM Age: 70 years Tech: Elo Juarez Gender: M Referring MD: WARREN PEÑA Site: [facility] Vascular Center Study performed: Iliac, (bilateral) Indication [...] This study was performed and interpreted by [facility], a service accredited by the Intersocietal Accreditation Commission (IAC/Vascular),www.intersocietal.org/vascular Report generated by [employer]. Final Warren Peña MD Fi nal Result from Last 3 Months or Most Recently Relevant to Health Maintenance Insurance [facility]REFERRED [facility] MEDICARE PART B HB ONLY [facility] [place] ONLY MEDICARE PART A HB ONLY Advance Directives * Full Code (Latest Code Status on File) Date Activated Date Inactivated Comments 01/26/2025 9:57 AM 01/27/2025 3:29 PM Should be di scussed pre operatively with anesthesia or surgeon Question Answer Comments Code Status Discussion: Not Discussed * Full Code Date Activated Date Inactivated Comments 10/06/2024 2:51 PM 10/10/2024 2:11 PM Question Answer Comments Code Status Discussion: Reviewed Preferences * Full Code Date Activated Date Inactivated Comments 01/03/2021 6:00 AM 01/04/2021 1:54 PM Question Answer Comments Code Status Discussion: Not Discussed Care Teams Airport Security Screener Relationship Specialty Start Date End Date Santi Juarez MD [address] [place] [address] PCP - General Family Practice 12/07/20
[2025-02-09 18:15] VITALS: BP 227/103; PULSE 82; RESP 18; TEMP 37.1; O2SAT 97
--- NOTE | 2025-02-09 18:53 | CT_ITS ---
Patient: WONG MOLINA Facility:?[facility] Patient ID:?[id number] Site Patient ID:?[id number]. Site :?1950 Study:?CT-Abdomen/Pelvis W ISOVUE 370-02/09/2025 7:40:51 PM Ordering Physician:Tariq Fernando Final Report: INDICATION: Hematuria. Recent prostate surgery.. TECHNIQUE: CT abdomen and pelvis acquired with 94 cc Omnipaque 350 IV contrast. COMPARISON: Hello. FINDINGS: Minimal left basilar atelectasis. The liver is unremarkable. The gallbladder is partially distended. No biliary ductal dilatation. Spleen is unremarkable. The pancreas is unremarkable. The adrenal glands are normal. The kidneys are unremarkable. Subcentimeter hypoattenuating lesion within left kidney is too small to characterize. The urinary bladder is distended. Hyperattenuating soft tissue seen within the dependent urinary bladder which likely represents blood products spanning approximately 5.4 centimeters. More superiorly within the dependent urinary bladder is a linear area of hyperdensity which is in close proximity to the right ureterovesical junction. It is uncertain whether this represents acute bleeding or a small amount of excreted contrast from the examination (127). There is gas within the anti dependent urinary bladder lumen. More inferiorly there is hypoattenuating soft tissue along the posterior urinary bladder with internal flex gas as well as hyperattenuation. This likely represents posttreatment changes within the prostate with areas of hemorrhage. There is mild thickening of the anterior urinary bladder with a small chase of gas noted along the anterior urinary bladder lumen (115). This likely represents a small diverticulum. There is mild stranding of the urinary bladder. No definite free air. No significant perivesicular fluid. Colonic diverticulosis is seen without CT evidence of acute diverticulitis. The appendix is prominent obscured by motion. No CT evidence of appendicitis. The small bowel is unremarkable. No gross free air. No organized drainable fluid collection. No lymphadenopathy. The aorta is not aneurysmal. Bone windows demonstrate no suspicious lytic or sclerotic lesions. IMPRESSION: 1. Distended urinary bladder with a large amount of hyperattenuation in keeping with blood products. A linear area of high density is noted more superiorly within the dependent right urinary bladder which could represent a focus of acute bleeding. Alternatively this could represent a small amount of early excreted contrast. Abnormal appearance of the prostate in this patient with reported recent TURP with areas of gas and hyperdensity likely representing hemorrhage. A small focal outpouching of gas is noted along the anterior wall of the urinary bladder which likely represents a diverticulum with no definitive evidence of bladder rupture. Emergent urologic consultation is recommended. Case discussed with Dr. Urban at approximately 8 p.m. on 02/09/[address] all [address] scans at this facility use dose modulation, iterative reconstruction, and/or weight-based dosing when appropriate to reduce radiation dose to as low as reasonably achievable. Dictated by Sebastian Giron MD @ 02/09/2025 8:03:34 PM Signed by:?Sebastian Giron MD @02/09/2025 8:03:34 PM (Electronic Signature)
[2025-02-09 19:26] LABS: Hematocrit 38.7 % (37.0-53.0); Hemoglobin* 12.6 gm/dL (13.5-17.5); Immature Granulocytes Pct Auto 0.1 %; Mean Corpuscular HGB Conc 33 gm/dL (32-36); Mean Corpuscular Hemoglobin 27 pg (26-34); Mean Corpuscular Volume 82 fL (80-100); RDW Coefficient of Variation % 14.1 % (11.5-15.5); Red Blood Count 4.74 m/uL (4.30-5.90); White Blood Count* 12.06 K/uL (4.50-11.00)
[2025-02-09 19:29] LABS: Immature Granulocytes Abs Auto 0.00 K/uL (0.00-0.30); Lymphocytes Absolute Auto 2.50 K/uL (0.90-2.90); Slide Review Reflex No
[2025-02-09 19:39] LABS: Chloride* 97 mmol/L (96-114); Potassium* 4.2 mmol/L (3.6-5.1); Sodium* 133 mmol/L (135-149)
[2025-02-09 19:42] LABS: Blood Urea Nitrogen* 14 mg/dL (7-30); Creatinine* 0.9 mg/dL (0.5-1.5); Estimated Glomerular Filt Rate 90 ml/min
[2025-02-09 19:43] LABS: Anion Gap 8 mEq/L (7-15); Calcium* 9.4 mg/dL (8.4-10.6); Carbon Dioxide* 28 mmol/L (20-32); Glucose* 197 mg/dL (60-115)
[2025-02-09 19:45] VITALS: PULSE 72; O2SAT 98
[2025-02-09 19:48] VITALS: BP 198/76; PULSE 66; RESP 18; O2SAT 98
--- NOTE | 2025-02-09 20:09 | ED_ITS ---
HPI - Male Genitourinary General Date Seen: 02/09/25 Chief complaint: Urogenital Problems, Male Stated complaint: Urinating blood Time Seen by Provider: 02/09/25 18:24 Source: patient Mode of arrival: ambulatory Limitations: no limitations History of Present Illness HPI Narrative: Patient is a 75-year-old male presenting to the emergency department for hematuria. States he had a partial prostate removal in 01/26 and had the Fragoso removed he has been having for 6 months on 01/28. States he has been urinating well other than couple days ago he had an episode of hematuria we passed multi ple clots. Since then hematuria went away up until this morning. States that he has been having pain with urination and has passed some more clots. States his urine is now bright red blood. Has never had hematuria this bad before. Is not currently having any abdominal pain or suprapubic pain but does states he keeps feeling like he has to go to urinate but then is unable to. States he only passed more clots. Has not had any lightheadedness or dizziness. Denies any fevers or chills. No other concerns noted at this time. Had his procedure done at [facility]. Related Data Previous Rx's ?Medication ?Instructions ?Recorded epinephrine 0.3 mg/0.3 mL 0.3 ml IM .As Needed as need ed PRN 07/03/23 injection, auto-injector anaphylaxis #2 ea apixaban 5 mg tablet (Eliquis) 5 mg PO BID #60 tabs atorvastatin 40 mg tablet 40 mg PO HS #90 tabs 5 diltiazem HCl 60 mg 60 mg PO BID #60 caps capsule,extended release 12 hr glipizide 10 mg tablet, extended 10 mg PO DAILY #90 ta bs 01/11/25 release 24 hr lisinopril 10 mg tablet 10 mg PO DAILY #90 tabs 10/06 metformin 500 mg tablet,extended 1,000 mg (2 x 500 mg) PO QDAY #180 01/11/25 release 24 hr tabs Allergies Allergy/AdvReac Type Severity Reaction Status Date / Time bee venom protein (honey bee) Allergy Verified 02/09/25 18:15 Penicillins Allergy Verified 02/09/25 18:15 tamsulosin (From Flomax) AdvReac Intermediate orthostatic Verified 02/09/25 18:15 hypotension Review of Systems Status of ROS: Reports: 10 or more systems reviewed and unremarkable except as noted in History and below [facility] Medical History Stenosis of right carotid artery (01/03/21) ?I65.21 - Occlusion and stenosis of right carotid artery (ICD-10) Hypercholesterolemia (04/18/15) ?E78.00 - Pure hypercholesterolemia, unspecified (ICD-10) Hematuria (04/18/15) ?R31.9 - Hematuria, unspecified (ICD-10) Benign neoplasm of colon (05/28/07) ?D12.6 - Benign neoplasm of colon, unspecified (ICD-10) Anaphylactic reaction to bee sting (04/18/15) ?T63.441A - Toxic effect of venom of bees, accidental (unintentional), initial encounter (ICD-10) ?T78.2XXA - Anaphylactic shock, unspecified, initial encounter (ICD-10) Allergic rhinitis (12/11/05) ?J30.9 - Allergic rhinitis, unspecified (ICD-10) Atrial fibrillation ?I48.91 - Unspecified atrial fibrillation (ICD-10) Hyponatremia ?E87.1 - Hypo-osmolality and hyponatremia (ICD-10) Chronic hyponatremia ?E87.1 - Hypo-osmolality and hyponatremia (ICD-10) Right lumbar radiculopathy ?M54.16 - Radiculopathy, lumbar region (ICD-10) Leukocytosis ?D72.829 - Elevated white blood cell count, unspecified (ICD-10) Lumbar radiculopathy ?M54.16 - Radiculopathy, lumbar region (ICD-10) Chronic low back pain ?M54.50 - Low back pain, unspecified (ICD-10) ?G89.29 - Other chronic pain (ICD-10) Cerebrovascular accident (CVA) (07/2020) ?I63.9 - Cerebral infarction, unspecified (ICD-10) Bladder cancer (2013) ?C67.9 - Malignant neoplasm of bladder, unspecified (ICD-10) Allergic to bees ?Z91.030 - Bee allergy status (ICD-10) Adenomatous polyp of colon ?D12.6 - Benign neoplasm of colon, unspecified (ICD-10) Gout ?M10.9 - Gout, unspecified (ICD-10) Hypertension ?I10 - Essential (primary) hypertension (ICD-10) Diabetes mellitus ?E11.9 - Type 2 diabetes mellitus without complications (ICD-10) Abnormal gait ?R26.9 - Unspecified abnormalities of gait and mobility (ICD-10) Surgical History History of amputation of toe ?Z89.429 - Acquired absence of other toe(s), unspecified side (ICD-10) History of colonoscopy ?Z98.890 - Other specified postprocedural states (ICD-10) History of tonsillectomy (1968) ?Z90.89 - Acquired absence of other organs (ICD-10) History of right-sided carotid endarterectomy ?Z98.890 - Other specified postprocedural states (ICD-10) Social History Narrative: SOCIAL HISTORY: He is single. Retired. One daughter living in [facility] that he does not see much. No longer working at [employer]. No longer working for the [employer]. 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 Code status is full. He does not want prolonged life support. His nephew, Adrien Araiza, of [place] is healthcare power of real estate attorney HABITS: Sporadic walking for exercise. Sporadic smoking in the past. He denies smoking at this point. No alcohol or recreational drug use. FAMILY HISTORY: No changes. Parents both . He did not know them well. Father around 80 of unknown cause. Mother around 70 of unknown cancer. Three sisters all living with borderline diabetes otherwise healthy. What is your current living situation?: I presently have a place to live Problems where you live: no known problems Problems where you live details: N/A In the past 12 months, utilities in danger of being shut off: no In past 12 months, lack of transportation kept you from medical appts, meetings, work, or getting things needed for daily living: no In the past 12 mos, have been you worried that your food would run out before you had money to buy more?: never true In the past 12 mos, the food you bought just didn't last and you didn't have money to buy more?: never true Highest level of school completed/degree received: high school graduate Smoking Status: Former smoker What tobacco products do you use: cigarettes Smoking quit date/years: <= 15 years ago Do you use any of these nicotine containing products: None Second hand tobacco smoke exposure: No How often do you have a drink containing alcohol: never AUDIT-C Alcohol total score: 0 Non-prescribed substance use: marijuana (any form) How often does anyone, including family, friends and others, physically hurt you : never How often does anyone, including family, friends and others, insult or talk down to you: never How often does anyone, including family, friends and others, threaten you with harm: never How often does anyone, including family, friends and others, scream or curse at you: never service: Yes Exam Narrative: Exam Narrative: Const: Well-nourished, Well-developed, in mild distress Eyes: PERRL, no conjunctival injection, and symmetrical lids HENT: Atraumatic external nose and ears. Moist mucous membranes. Neck: Symmetric, trachea midline, No thyromegaly. CVS: RRR, No murmurs or gallops. Peripheral pulses 2+ and equal in all extremities RESP: Unlabored respiratory effort. Clear to auscultation bilaterally. GI: Nontender/Nondistended, No rebound or guarding. : Mild active bleeding noted from urethral with a depends that is full of blood and clots. MSK:Extremities w/o deformity, Normal Active ROM Skin: Warm, Dry. No rashes or lesions. Neuro: Normal Muscle tone, No focal neurological deficits. Psych: Awake, Alert, & Oriented x3. Appropriate mood and affect. Const: Vital Signs, click to edit/add: Vital Signs - 24 hr 02/09/25 18:15 02/09/25 19:45 02/09/25 19:48 Temperature 98.7 F Pulse Rate 72 66 Pulse Rate [Pulse Oximeter] 82 Respiratory Rate 18 18 Blood Pressure 198/76 H Blood Pressure [Ri ght Upper Arm] 227/103 H Pulse Oximetry 97 98 98 Oxygen Delivery Me thod Room Air Room Air Course Vital Signs Vital signs: Initial Vital Signs Temperature 98.7 F 02/09/25 18:15 Temperature Source Temporal Artery Scan 02/09/25 18:15 Pulse Rate 82 02/09/25 18:15 Respiratory Rate 18 02/09/25 18:15 Blood Pressure 227/103 H 02/09/25 18:15 Blood Pressure Mean 144 H 02/09/25 18:15 Blood Pressure Position Semi-Fowlers 02/09/25 18:15 Pulse Oximetry 97 02/09/25 18:15 Oxygen Delivery Method Room Air 02/09/25 18:15 Vital Signs Temperature 98.7 F 02/09/25 18:15 Pulse Rate 82 02/09/25 18:15 Respiratory Rate 18 02/09/25 18:15 Blood Pressure 227/103 H 02/09/25 18:15 Pulse Oximetry 97 02/09/25 18:15 Oxygen Delivery Method Room Air 02/09/25 18:15 Temperature 98.7 F 02/09/25 18:15 Pulse Rate 66 02/09/25 19:48 Respiratory Rate 18 02/09/25 19:48 Blood Pressure 198/76 H 02/09/25 19:48 Pulse Oximetry 98 02/09/25 19:48 Oxygen Delivery Method Room Air 02/09/25 19:48 Medications Administered Medications: Generic Name Dose Route Start Last Admin Trade Name Freq PRN Reason Stop Dose Admin Tranexamic Acid 1,000 mg 02/09/25 21:10 02/09/25 21:18 Tranexamic Acid 100 Mg/Ml Inj IV 02/09/25 21:11 1,000 mg ONCE ONE Administration MDM - Male Genitourinary MDM Narrative Medical decision making narrative: Patient is a 75-year-old male presenting for hematuria. He is having gross hematuria at this time. There is a large clot is depend but due to the size this is likely coagulated blood after it has drained from his urethra. Will do a CT scan for better evaluation. Will also check a CBC, BMP, type and screen. Will try to do postvoid bladder scan if possible. Patient went to try and urinate but was unable to instead continue to drain blood from his urethra. Nursing staff said there seemed to be a decently steady stream of blood coming out. He has tried to urinate several times since then but every time he just passes more blood and has not urinated yet. We did send a sample of as very unsure if there is any urine in it or not but I coagulated and we are unable to get a urinalysis at this time. CBC shows a hemoglobin at about baseline. BMP shows no concerning abnormalities. CT scan of the abdomen pelvis shows distended urinary bladder for large amount of hyperattenuation that is likely blood products. There are linear areas of high density noted superiorly within the dependent right urinary bladder which could represent a focus of acute bleeding this could also be excreted contrast. There is an abnormal appearance the prostate with areas of gas and hyperdensity likely representing hemorrhage there is a small outpouching gas noted along the anterior wall of the urinary bladder which likely represents a diverticulum. No definitive evidence of bladder rupture. The radiologist did speak to me in recommended emergent urological consultation. I spoke to Dr. Sheikh and she does recommend transfer at this time. She does agree them plan to try to place a 3 way Fragoso to try and do continuous bladder irrigation. If we do not do this I do believe the catheter will likely clog with blood. TXA ordered Lab Data Labs: Lab Results 02/09/25 02/09/25 Range/Units 19:18 21:38 WBC 12.06 H (4.50-11.00) K/uL RBC 4.74 (4.30-5.90) m/uL Hgb 12.6 L 10.8 L (13.5-17.5) gm/dL Hct 38.7 (37.0-53.0) % MCV 82 (80-100) fL MCH 27 (26-34) pg MCHC 33 (32-36) gm/dL RDW Coeff of Rodriguez 14.1 (11.5-15.5) % Plt Count 376 (140-440) K/uL Neut % (Auto) 67.8 (42.0-72.0) % Lymph % (Auto) 20.9 (20-44) % Zavala % (Auto) 6.6 (0.0-11.0) % Eos % (Auto) 4.1 (0.0-7.0) % Baso % (Auto) 0.5 (0.0-3.0) % Neut # (Auto) 8.20 H (1.7-7.0) K/uL Lymph # (Auto) 2.50 (0.90-2.90) K/uL Zavala # (Auto) 0.80 (0.00-0.90) K/UL Eos # (Auto) 0.50 (0.00-0.50) K/uL Baso # (Auto) 0.10 (0.00-0.30) K/uL Abs Immat Gran (auto) 0.00 (0.00-0.30) K/uL Imm/Tot Granulo (auto) 0.1 % Sodium 133 L (135-149) mmol/L Potassium 4.2 (3.6-5.1) mmol/L Chloride 97 (96-114) mmol/L Carbon Dioxide 28 (20-32) mmol/L Anion Gap 8 (7-15) mEq/L BUN 14 (7-30) mg/dL Creatinine 0.9 (0.5-1.5) mg/dL Estimated GFR 90 ml/min Glucose 197 H (60-115) mg/dL Calcium 9.4 (8.4-10.6) mg/dL Blood Type AB Positive Antibody Screen NEGATIVE Critical Care Time Critical Care Time Critical Care Time: Yes Attestation: The patient required my highest level preparedness to intervene emergently and I personally spent this critical care time directly and personally managing the patient. This critical care time included: Obtaining a history; Examining the patient; Pulse oximetry; Ordering and reviewing of studies; Arranging urgent treatment with development of a management plan; Evaluation of patients res ponse to treatment; Frequent reassessment discussions with other providers. This critical care time was performed to assess and manage the high probability of imminent life-threatening deterioration that could result in multiorgan failure. It was exclusive of separate billable procedures and treating other patients and teaching time. Total Critical Care Time in Minutes: 45 Discharge Plan Discharge Prescriptions: No Action epinephrine 0.3 mg/0.3 mL auto-injector 0.3 ml IM .As Needed as needed PRN (Reason: anaphylaxis) Qty: 2 0RF atorvastatin 40 mg tablet 40 mg PO HS Qty: 90 3RF diltiazem HCl 60 mg capsule,extended release 12 hr 60 mg PO BID Qty: 60 5RF glipizide 10 mg tablet extended release 24hr 10 mg PO DAILY Qty: 90 3RF lisinopril 10 mg tablet 10 mg PO DAILY Qty: 90 3RF metformin 500 mg tablet extended release 24 hr 1,000 mg PO QDAY Qty: 180 3RF Eliquis 5 mg tablet 5 mg PO BID Qty: 60 10RF Follow Up/Referrals: Santi Juarez MD [Primary Care Provider, Family Practice]
[2025-02-09] MEDS: TRANEXAMIC ACID 100 MG/ML INJ 1000 MG IV (21:18)
[2025-02-09 21:44] LABS: Hemoglobin* 10.8 gm/dL (13.5-17.5)
--- NOTE | 2025-02-10 15:24 | ED.NURSE ---
Pt's nephew Adrien called inquiring about pt status and condition. There was an BETTE on file for Adrien so I informed him that the pt was txfrd to another facility after his visit here. Advised Adrien to contact that facility for further information on pt condition.
== END 2025-02-09 22:32 | disposition short-term general hospital (02) ==
LOC: ED 18:59
PROVIDERS: Emergency Provider Student in an Organized Health Care Education/Training Program; PCP Family Medicine
DX: R31.9 Hematuria, unspecified (principal)
CPT/HCPCS: 36415; 74177; 80048; 81001; 85018; 85025; 86850; 86900; 86901; 99285; 99291; Q9967

== ENCOUNTER 2025-02-09 22:11 | Outpatient (CLI) | payer MEDICARE, BC, SELFPAY | END 2025-02-09 22:12 | disposition home or self-care (01) | PROVIDERS: PCP Family Medicine; Visit Provider Family Medicine | DX: R31.0 Gross hematuria (principal) | CPT/HCPCS: A0425; A0427 ==

== ENCOUNTER 2025-02-18 15:15 | Inpatient (IN) | payer MEDICARE, BC, SELFPAY ==
--- OUTSIDE RECORDS SUMMARY | 2009-11-22 02:30 | XMS_ITS | Continuity of Care Document ---
Author Organization [facility] Address [address] [address] [place] [address] Phone Care Team Providers Care In Flight Refueling Operator Name Role Phone Jose Guadalupe SHERMAN, Isaías Unavailable Unavailable Allergies, Adverse Reactions, Alerts Substance Reaction Status Criticality penicillin G Unknown Active No Information WARNIN allergy(ies) could not be collected because the type is not supported. Please contact the source practice for further details. Medications Medication Instructions Dosage Effective Dates (start - stop) Status Comments atenolol 25 mg Tab Take 1/2 tab by mouth once a day - Active Aspirin Low Dose 81 mg Tab, Delayed Release 1 T daily - Active MiralaxBisacodylMagCit Colon Prep 2 tabs bisacodyl each containing 5 mg of bisacodyl 1-8.3 oz bottle Miralax (238 gm) 64 oz Gatorade liquid (NOT red; NOT powdered)Regular Gatorade , Gatorade G2 , Powerade or PoweradeZero are acceptable. 1-10 oz bottle Mag Citrate (NOT red) - No Longer Active Procedures Procedure Date Colonoscopy Flex; W/remov Les- 10 Colonoscopy Flex; W/bx 1/mx Level Iv-surg Path Gross/micro 10 Advance Directives Directive Yes / No Effective Date File Name No Information Encounters Encounter Description Practice Location Reason(s) For Visit Diagnoses Date Provider Providers Copied on Encounter [facility], [address] [address], [place], [id number], [place] tel:[phone] Koko [facility] Personal History Colon PolypsColon Cancer ScreeningDiverti culosis Of ColonPersonal History Colon PolypsRectal Polyp/Benign Apr- 3-201 0 Jose Guadalupe Metz. [address] [facility], [place], [place], [id number], [place]. tel:[phone] Referring Provider: Boris Balderrama MD R, [address] [place], [address]. tel:[phone] [facility], [address] [address], [place], [place], [id number], [place] tel:[phone] [facility] No Information Oct- 5201 0 No Information Referring Provider: Boris Balderrama [place] R, [address] [place], [address]. tel:[phone] [facility], [address] [address], [place], [place], [id number], [place] tel:[phone] [facility] No Information 5 No Information Referring Provider: Boris Balderrama MD [address], [address] [place], [address]. tel:[phone] Family History Family Member Type Diagnosis Age At Onset No Information Payers Payer name Insurance type Covered democrat ID Authoriza tion(s) No Information Social History Type Description Quantity Date Captured Comments Sex Male Smoking Status No Information Chief Complaint And Reason For Visit No Information Reason For Referral Reason For Referral No Information History Of Present Illness Encounter Date Complaint History Of Prese nt Illness No Information Functional Status Date Functional Assessmen t No Information Instructions Date Instruction Additional Infor mation No Information Assessments Type Assessment Date No Information Patient Care Teams Name Effective Dates (start - stop) Status Members No Information
--- OUTSIDE RECORDS SUMMARY | 2009-11-22 02:30 | XMS_ITS | Continuity of Care Document ---
Author Organization [facility] Address [address] [address] [place] [address] Phone Care Team Providers Care Historian Dramatic Arts Name Role Phone Jose Guadalupe SHERMAN, Isaías [...] Diagnoses Date Provider Providers Copied on Encounter [facility], [address] [address], [place], [id number], [place] tel:[phone] Koko [facility] Personal History Colon PolypsColon Cancer ScreeningDiverti culosis Of ColonPersonal History Colon PolypsRectal Polyp/Benign Apr- 3-201 0 Jose Guadalupe Metz. [address] [facility], [address], [place], [place], [id number], [place]. tel:[phone] Referring Provider: [place] [address], [address] [place], [address]. tel:[phone] [facility], [address] [address], [place], [place], [id number], [place] tel:[phone] [facility] No Information Oct- 5201 0 No Information Referring Provider: [place] R, [address] [place], [address]. tel:[phone] [facility], [address] [address], [place], [place], [address], [place] tel:[phone] [facility] No Information 5 No Information Referring Provider: [place] R, [address] [place], [address]. tel:[phone] Family History Family Member Type Diagnosis Age At Onset No Information Payers Payer name Insurance type Covered alliance party ID Authoriza tion(s) No Information Social History [...]
[2025-02-18] VITALS (29 sets, daily range): BP systolic 106–206; BP diastolic 50–121; PULSE 83–97; RESP 11–28; TEMP 36.9–38.2; O2SAT 89–98; BMI 22.7
--- OUTSIDE RECORDS SUMMARY | 2025-02-18 15:17 | XMS_ITS | Clinical Summary ---
Author Organization [employer] [facility] Address [address] [place] [address] Care Team Providers Care Hydro Excavation Operator Name Role Phone Santi Juarez MD Primary Care Provider [phone] Allergies Active Allergy Reactions Criticality Noted Date [...] Encounters Date Type Department Care Team Description 02/13/2025 7:29 AM CDT Anesthesia Event [address] [address] Tejinder Blackburn MD Nye, Nguyễn Elizondo MD 02/13/2025 7:20 AM CDT - 02/13/2025 8:37 AM CDT Surgery [address] [address] Dwaine Holbrook MD CYSTOSCOPY WITH CLOT EVACUATION AND FULGURATION 02/12/2025 Travel 02/10/2025 Travel 02/09/2025 11:13 PM CDT - 02/14/2025 10:30 AM CDT Hospital Encounter [address] [address] [facility], Hospitalist [facility] Konstantin, DO Molina Colby, MD Flower Stevenson Puskar, MBBS Mikhail, Walid Adel, MD HTN (hypertension) (Primary Dx) Discharge Disposition: Home Self Care 01/26/2025 11:54 AM CDT - 01/26/2025 3:34 PM CDT Surgery [address] [address] Obey Pedraza MD CYSTOSCOPY, BIPOLAR ENUCLEATION OF PROSTATE 01/26/2025 11:22 AM CDT Anesthesia Event [address] [address] Eulalio Butcher CRNA Dahl, Ashley Rose Dragavon, MD 01/26/2025 9:14 AM CDT - 01/27/2025 1:29 PM CDT Hospital Encounter [address] [address] Obey Pedraza MD Benign prostatic hyperplasia with [...] or isolated from those around you? 0 02/10/2025 Financial Resource Strain Answer Date R ecorded Difficulty of Paying Living Expenses 3 10/06/2024 Difficulty of Paying Living Expenses Not on file 10/06/2024 Food Insecurity Answer Date Recorded Do you worry your food will run out before you are able to buy more? 1 02/10/2025 Transportation Needs Answer Date Record ed Does lack of transportation keep you from medica l appointments? 1 02/10/2025 Does lack of transportation keep you from work, meetings or getting things that you need? 1 02/10/2025 Housing Stability Answer Date Recorded What is your housing situation today? 1 02/10/2025 Interpersonal Safety Answer Date Record ed Are you being hit, kicked, p ushed or yelled at (see row info)? No 02/10/2025 Interpersonal Safety Abuse 12 - 18 Not on file 02/10/2025 Interpersonal Safety Ambulatory Vulnerability No t on file 02/10/2025 Utilities Answer Date Recorded Do you have trouble paying f or utilities (for example, heat, electricity, water, phone)? 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 Gender Identity Not on file Sexual Orientation Not on file Obstetrics History Last Filed Vital Signs Vital Sign Reading Time Taken Comments Blood Pressure 164/71 02/14/2025 7:24 AM CDT Pulse 70 02/14/2025 7:24 AM CDT Temperature 36.6 C (97.9 F) 02/14/2025 7:24 AM CDT Respiratory Rate 16 02/14/2025 7:24 AM CDT Oxygen Saturation 97% 02/14/2025 7:24 AM CDT Inhaled Oxygen Concentration - - [...] 18+ 12/09/2021 12/09/2020, 12/07/2020 Influenza Vaccine (#1) 2025 4, 05/11/2012, 05/14/2011 COVID-19 vaccine series (6 - Pfizer risk season) 2025 11/17/2024, 04/16/2024, 05/08/2022, Additional history exists Colonoscopy through age 77 04/03/202804/03, 04/03/2023, 04/01/2018, Additional history exists AAA screening age 65-74 Completed 12/09/2020 Hepatitis B series for 19+ Aged Out N o longer eligible based on patient's age to complete this topic Medical Devices Implanted Type Area Carpet Sewer Device Identifier Shelf Expiration Date Model / Serial / Lot Tissue Pericardium 0.8x8cm Xenosure - [id number] Implanted:Qty: 1 on 01/03/2021 by Warren Peña MD at [facility] Right: Carotid Artery [employer] 08/08/2026 0.8P8 / / [id number] Procedures Procedure Name Priority Date/Time Associated Diagnosis Comments GLUCOSE METER Timed 02/14/2025 7:23 AM CDT GLUCOSE METER Timed 02/13/2025 9:23 PM CDT GLUCOSE METER Timed 02/13/2025 5:15 PM CDT GLUCOSE METER Timed 02/13/2025 12:43 PM CDT GLUCOSE METER Timed 02/13/2025 9:02 AM CDT SUPRAGLOTTIC-LMA Routine 02/13/2025 7:45 AM CDT CYSTOSCOPY EVACUATION BLADDER CLOTS 02/13/2025 7:18 AM CDT CLOT URINARY RETENTION GLUCOSE METER Timed 02/13/2025 7:05 AM CDT GLUCOSE METER Timed 02/12/2025 9:07 PM CDT GLUCOSE METER Timed 02/12/2025 4:46 PM CDT GLUCOSE METER Timed 02/12/2025 12:01 PM CDT CBC WITH AUTO DIFFERENTIAL Early AM 02/12/2025 9:18 AM CDT BASIC METABOLIC PANEL Early AM 02/12/2025 9:18 AM CDT CBC WITH AUTO DIFFERENTIAL Early AM 02/12/2025 9:18 AM CDT GLUCOSE METER Timed 02/12/2025 7:58 AM CDT US RENAL AND BLADDER COMPLETE STAT 02/12/2025 3:08 AM CDT GLUCOSE METER Timed 02/11/2025 9:20 PM CDT GLUCOSE METER Timed 02/11/2025 5:18 PM CDT CBC WITH AUTO DIFFERENTIAL STAT 02/11/2025 2:49 PM CDT CBC WITH AUTO DIFFERENTIAL STAT 02/11/2025 2:49 PM CDT GLUCOSE METER Timed 02/11/2025 11:50 AM CDT GLUCOSE METER Timed 02/11/2025 5:50 AM CDT GLUCOSE METER Timed 02/11/2025 2:03 AM CDT GLUCOSE METER Timed 02/10/2025 9:37 PM CDT GLUCOSE METER Timed 02/10/2025 6:50 PM CDT GLUCOSE METER Timed 02/10/2025 5:09 PM CDT GLUCOSE METER Timed 02/10/2025 1:11 PM CDT URINALYSIS MICROSCOPIC Timed 02/10/2025 1:06 PM CDT UA W/ SEDIMENT EXAM REFLEXED PER CRITERIA Today 02/10/2025 1:06 PM CDT GLUCOSE METER Timed 02/10/2025 9:11 AM CDT GLUCOSE METER Timed 02/10/2025 4:19 AM CDT HEMOGLOBIN A1C TYLER 02/10/2025 1:25 AM CDT BASIC METABOLIC PANEL Today 02/10/2025 1:25 AM CDT CBC W PLT NO DIFF Today 02/10/2025 1:2 5 AM CDT GLUCOSE METER Timed 02/10/2025 1:21 AM CDT SCAN-CARDIAC STRIP 02/09/2025 12:00 AM CDT GLUCOSE METER Timed 01/27/2025 11:57 AM CDT [...] Health Maintenance Results * (ABNORMAL) GLUCOSE METER (02/14/2025 7:23 AM CDT) Only the most recent of27 resultswithin the time period is included. GLUCOSE METER 155(H) 65 - 100 mg/dL 02/14/2025 7:23 AM T [facility] Blood BLOOD SPECIMEN / Unknown 02/14/2025 7:23 AM CDT 02/14/2025 7:23 AM CDT us Vimal Gleason MD CHEMISTRY Final Resu lt [facility] SENDOUT [place]NAL ZIP [phone] [place] [address] * HCHG MASK PR5 (02/13/2025 7:45 AM CDT) Narrative Cindy Hernandez RED HAT LINUX ENGINEER - 02/13/2025 7:45 AM CDT Cindy Hernandez CRNA 02/13/2025 7:45 AM Procedure: Supraglottic Patient location during procedure: OR Supraglottic Airway Properties Mask Ventilation: not attempted Type: unique Tube Size: 5 Insertion Attempts: 1 Placement Verification: auscultation and CO2 detection Assessment Assessment: atraumatic and dentition unchanged us Tejinder Blackburn MD ANESTHESIA PX NOTE ORDERABLES Final Result * (ABNORMAL) CBC WITH AUTO DIFFERENTIAL (02/12/2025 9:18 AM CDT) Only the most recent of2 resultswithin the time period is included. WHITE BLOOD COUNT 10.0 4.5 - 11.0 thou/cu mm 02/12/2025 9:26 AM [facility] RED BLOOD COUNT 3.45(L) 4.30 - 5.90 mil/cu mm 02/12/2025 9:26 AM [facility] HEMOGLOBIN 9.1(L) 13.5 - 17.5 g/dL 02/12/2025 9:26 AM [facility] HEMATOCRIT 28.2(L) 37.0 - 53.0 % 02/12/2025 9:26 AM [facility] MCV 82 80 - 100 fL 02/12/2025 9:26 AM [facility] MCH 26.4 26.0 - 34.0 pg 02/12/2025 9:26 AM [facility] MCHC 32.3 32.0 - 36.0 g/dL 02/12/2025 9:26 AM [facility] RDW 14.5 11.5 - 15.5 % 02/12/2025 9:26 AM [facility] PLATELET COUNT 303 140 - 440 thou/cu mm 02/12/2025 9:26 AM [facility] MPV 9.4 6.5 - 11.0 fL 02/12/2025 9:26 AM [facility] NRBC 0.0 % 02/12/2025 9:26 AM [facility] ABS NRBC 0.0 thou /cu mm 02/12/2025 9:26 AM [facility] % NEUT 73.4 % 02/12/2025 9:26 AM [facility] % LYMPH 16.4 % 02/12/2025 9:26 AM [facility] % MONO 7.5 % 02/12/2025 9:26 AM [facility] % EOS 1.9 % 02/12/2025 9:26 AM [facility] % BASO 0.5 % 02/12/2025 9:26 AM [facility] % IMMATURE GRAN (METAS,MYELOS,OR OS) 0.3 % 02/12/2025 9:26 AM [facility] ABSOLUTE NEUTROPHILS 7.3(H) 1.7 - 7.0 thou/cu mm 02/12/2025 9:26 AM [facility] ABSOLUTE LYMPHOCYTES 1.6 0.9 - 2.9 thou/cu mm 02/12/2025 9:26 AM [facility] ABSOLUTE MONOCYTES 0.8 <0.9 thou/cu mm 02/12/2025 9:26 AM [facility] ABSOLUTE EOSINOPHILS 0.2 <0.5 thou/cu mm 02/12/2025 9:26 AM [facility] ABSOLUTE BASOPHILS 0.1 <0.3 thou/cu mm 02/12/2025 9:26 AM [facility] ABSOLUTE IMMATURE GRANULOCYTES(MET ,MYELOS,PROS) 0.0 <0.3 thou/cu mm 02/12/2025 9:26 AM [facility] Blood BLOOD SPECIMEN / Unknown Venipuncture / Unknown 02/12/2025 9:18 AM CDT 02/12/2025 9:22 AM CDT us Vimal Gleason MD HEMATOLOGY Final Resu lt [facility] SENDOUT [place]NAL ZIP [address] [address] [place] [address] * (ABNORMAL) BASIC METABOLIC PANEL (02/12/2025 9:18 AM CDT) Only the most recent of3 resultswithin the time period is included. SODIUM 139 136 - 145 mmol/L 02/12/2025 9:44 AM [facility] POTASSIUM 4.4 3.5 - 5.1 mmol/L 02/12/2025 9:44 AM [facility] CHLORIDE 106 98 - 107 mmol/L 02/12/2025 9:44 AM [facility] CO2,TOTAL 24 22 - 29 mmol/L 02/12/2025 9:44 AM [facility] ANION GAP 9 5 - 18 02/12/2025 9:44 AM [facility] GLUCOSE 161(H) 70 - 99 mg/dL 02/12/2025 9:44 AM [facility] CALCIUM 8.9 8.8 - 10.4 mg/dL 02/12/2025 9:44 AM [facility] Comment: Reference ranges for this test were updated on 06/16/2024 to reflect our healthy population more accurately. Reference range changes are not retroactively applied to results, but previous results using the same methodology can be interpreted in the context of the new reference range. BUN 11 8 - 23 mg/dL 02/12/2025 9:44 AM [facility] CREATININE 0.86 0.70 - 1.20 mg/dL 02/12/2025 9:44 AM [facility] BUN/CREAT RATIO 13 10 - 20 9:44 AM [facility] eGFR >90 >90 mL/min/1. 73m2 02/12/2025 9:44 AM [facility] Comment:As of 2021, eG FR is calculated by the CKD-EPI creatinine equation without race adjustment. eGFR can be influenced by muscle mass, exercise, and diet. The reported eGFR is an estimation only and is only applicable if the renal function is stable. Blood BLOOD SPECIMEN / Unknown Venipuncture / Unknown 02/12/2025 9:18 AM CDT 02/12/2025 9:22 AM CDT us Vimal Gleason MD CHEMISTRY Final Resu lt [facility] SENDOUT [place]NAL ZIP [phone] [place] [address] * US RENAL AND BLADDER COMPLETE (02/12/2025 3:08 AM CDT) Anatomical Region Laterality Modality Abdomen, AORTA, KIDNEYS Ultrasou nd 02/12/2025 3:08 AM CDT Impressions 02/12/2025 3:15 AM CDT 1. No hydronephrosis. 2. Clot in the urinary bladder. Etiology of bladder clot is not identified. Narrative 02/12/2025 3:15 AM CDT For Patients: As a result of the Cures Act, medical imaging exams and procedure reports are released immediately into your electronic medical record. You may view this report before your referring provider. If you have questions, please contact your health care provider. EXAM: US RENAL AND BLADDER COMPLETE LOCATION: [facility] MEDICAL IMAGING DATE: 02/12/2025 INDICATION: Hematuria COMPARISON: Sonogram October 07, 2024. TECHNIQUE: Routine Bilateral Renal and Bladder Ultrasound. FINDINGS: RIGHT KIDNEY: 11.3 x 5.0 x 4.8 cm. Normal without hydronephrosis or masses. LEFT KIDNEY: 10.6 x 4.7 x 4.5 cm. Normal without hydronephrosis or masses. 4 mm echogenic focus at the midpole calyceal region may be a small calculus. BLADDER: Fragoso catheter within the urinary bladder which is partially filled with echogenic material consistent with clot. The volume of clot and the total volume of fluid in the bladder is significantly decreased on images later in the exam. Procedure Note Agustin Montiel MD - 02/12/2025 For Patients: As a result of the Cures Act, medical imagingexams and procedure reports are released immediately into your electronicmedical record. You may view this report before your referring provider.If you have questions, please contact your health care provider. EXAM: US RENAL AND BLADDER COMPLETE LOCATION: [facility] MEDICAL IMAGING DATE: 02/12/2025 INDICATION: Hematuria COMPARISON: Sonogram October 07, 2024. TECHNIQUE: Routine Bilateral Renal and Bladder Ultrasound. FINDINGS: RIGHT KIDNEY: 11.3 x 5.0 x 4.8 cm. Normal without hydronephrosis ormasses. LEFT KIDNEY: 10.6 x 4.7 x 4.5 cm. Normal without hydronephrosis or masses.4 mm echogenic focus at the midpole calyceal region may be a smallcalculus. BLADDER: Fragoso catheter within the urinary bladder which is partiallyfilled with echogenic material consistent with clot. The volume of clotand the total volume of fluid in the bladder is significantly decreased onimages later in the exam. IMPRESSION: 1. No hydronephrosis. 2. Clot in the urinary bladder. Etiology of bladder clot is notidentified. Jony Barrett MD US Final Resu lt * (ABNORMAL) URINALYSIS MICROSCOPIC (02/10/2025 1:06 PM CDT) RBC 6-10(A) 0-2, None Seen /HPF 02/10/2025 1:56 PM CDT [facility] WBC 51-100(A) 0-2, 3-5, None Seen /HPF 02/10/2025 1:56 PM CDT [facility] BACTERIA None Seen None Seen, Rare, Few Bacteria/ HPF 02/10/2025 1:56 PM CDT [facility] EPITHELIAL CELLS None Seen None Seen, Few Epi/HPF 02/10/2025 1:56 PM CDT [facility] HYALINE CASTS 0-2 0-2, 3-5 /LPF 02/10/2025 1:56 PM CDT [facility] Urine URINE SPECIMEN / Unknown Non-Blood / Unknown 02/10/2025 1:06 PM CDT 02/10/2025 1:10 PM CDT Bel Epstein PA URINE Final Res ult [facility] SENDOUT [place]NAL ZIP [phone] [place] [address] * (ABNORMAL) UA W/ SEDIMENT EXAM REFLEXED PER CRITERIA (02/10/2025 1:06 PM CDT) COLOR Brown(A) Yellow Color 02/10/2025 1:56 PM CDT [facility] CLARITY Slightly Cloudy(A) Clear Clarity 02/10/2025 1:56 PM CDT [facility] SPECIFIC GRAVITY,URINE <=1.005(A) 1.010, 1.015, 1.020, 1.025 02/10/2025 1:56 PM CDT [facility] PH,URINE 6.0 6.0, 7.0, 8.0, 5.5, 6.5, 7.5, 8.5 02/10/2025 1:56 PM CDT [facility] UROBILINOGEN, QUALITATIVE Normal Normal EU/dl 02/10/2025 1:56 PM CDT [facility] PROTEIN, URINE 30(A) Negative mg/dL 02/10/2025 1:56 PM CDT [facility] GLUCOSE, URINE Negative Negative mg/dL 02/10/2025 1:56 PM CDT [facility] KETONES,URINE Negative Negative mg/dL 02/10/2025 1:56 PM CDT [facility] BILIRUBIN,URI NE Negative Negative 02/10/2025 1:56 PM CDT [facility] OCCULT BLOOD,URINE Large(A) Negative 02/10/2025 1:56 PM CDT [facility] NITRITE Negative Negative 02/10/2025 1:56 PM CDT [facility] LEUKOCYTE ESTERASE Moderate(A) Negative 02/10/2025 1:56 PM CDT [facility] Urine URINE SPECIMEN / Unknown Non-Blood / Unknown 02/10/2025 1:06 PM CDT 02/10/2025 1:10 PM CDT us Bel OLIVEIRA URINE Final Res ult Performing Organization Address City/[facility]/ZIP Co de Phone Number [facility] SENDOUT INTERNAL ZIP [phone] [place] [address] * (ABNORMAL) HEMOGLOBIN A1C (02/10/2025 1:25 AM CDT) HEMOGLOBIN A1C SCREENING 7.0(H) <=6.4 % 02/10/2025 9:50 AM T [facility] Blood BLOOD SPECIMEN / Unknown Venipuncture / Unknown 02/10/2025 1:25 AM CDT 02/10/2025 1:28 AM CDT [facility] - 02/10/2025 9:50 AM CDT (<5.7%) Normal (5.7% to 6.4%) Indicates prediabetes (>=6.5%) Confirms diabetes Falsely low levels may be seen with: Recent Transfusion, Recent Significant Blood Loss, Hemolytic Diseases, or Falsely elevated levels may be seen with: Untreated Anemias, Splenectomy Mauro ASHTON CHEMISTRY Final Result [facility] SENDOUT INTERNAL [facility] [[email or web address]] [id number] [place] [address] * (ABNORMAL) CBC W PLT NO DIFF (02/10/2025 1:25 AM CDT) WHITE BLOOD COUNT 23.8(H) 4.5 - 11.0 thou/cu mm 02/10/2025 1:30 AM [facility] RED BLOOD COUNT 4.12(L) 4.30 - 5.90 mil/cu mm 02/10/2025 1:30 AM [facility] HEMOGLOBIN 10.9(L) 13.5 - 17.5 g/dL 02/10/2025 1:30 AM T [facility] HEMATOCRIT 33.5(L) 37.0 - 53.0 % 02/10/2025 1:30 AM [facility] MCV 81 80 - 100 fL 02/10/2025 1:30 AM [facility] MCH 26.5 26.0 - 34.0 pg 02/10/2025 1:30 AM [facility] MCHC 32.5 32.0 - 36.0 g/dL 02/10/2025 1:30 AM [facility] RDW 14.3 11.5 - 15.5 % 02/10/2025 1:30 AM CDT [facility] PLATELET COUNT 356 140 - 440 thou/cu mm 02/10/2025 1:30 AM CDT [facility] MPV 9.2 6.5 - 11.0 fL 02/10/2025 1:30 AM CDT [facility] NRBC 0.0 % 02/10/2025 1:30 AM CDT [facility] ABS NRBC 0.0 thou /cu mm 02/10/2025 1:30 AM CDT [facility] Blood BLOOD SPECIMEN / Unknown Venipuncture / Unknown 02/10/2025 1:25 AM CDT 02/10/2025 1:28 AM CDT us Charlie Auguste MD HEMATOLOGY Final Res ult Performing Organization Address City/[facility]/ZIP Co de Phone Number [facility] SENDOUT INTERNAL ZIP [phone] [place] [address] * SCAN-CARDIAC STRIP (02/09/2025 12:00 AM CDT) Narrative 02/09/2025 12:00 AM CDT Ordered by an unspecified provider. us Other Clinical Staff OTHER Final Resul t * POTASSIUM (01/27/2025 8:28 AM CDT) POTASSIUM 4.3 3.5 - 5.1 mmol/L 01/27/2025 9:15 AM CDT [facility] Blood BLOOD SPECIMEN / Unknown Venipuncture / Unknown 01/27/2025 8:28 AM CDT 01/27/2025 8:50 AM CDT us Doctor Unknown CHEMISTRY Final Result Performing Organization Address City/[facility]/ZIP Co de Phone Number [facility] SENDOUT INTERNAL ZIP [phone] [place] [address] * (ABNORMAL) Hemoglobin (01/27/2025 7:26 AM CDT) HEMOGLOBIN 13.0(L) 13.5 - 17.5 g/dL 01/27/2025 7:35 AM CDT [facility] MCV 81 80 - 100 fL 01/27/2025 7:35 AM CDT [facility] Blood BLOOD SPECIMEN / Unknown Venipuncture / Unknown 01/27/2025 7:26 AM CDT 01/27/2025 7:31 AM CDT us Obey Pedraza MD HEMATOLOGY Final Res ult [facility] SENDOUT INTERNAL ZIP [address] [address] [place] [address] * PATH TISSUE EXAM (01/26/2025 1:38 PM CDT) Case Report Pathology Report Case: [id number] Authorizing Provider: Obey Pedraza MD Collected: 01/26/2025 1338 Ordering Location: [facility] Received: 01/26/2025 1359 Pathologist: Pavel Gill MD Specimen: Prostate, Prostate adenoma 01/28/2025 11:12 AM CDT [facility] Final Diagnosis A) PROSTATE, TRANSURETHRAL RESECTION: 1. Nodular epithelial and stromal hyperplasia, consistent with benign prostatic hypertrophy 2. No atypical foci, high grade intraepithelial neoplasia, or malignancy 01/28/2025 11:12 AM CDT [facility] at 1112 CDT Clinical Information BPH 01/28/2025 11:12 AM T [facility] Gross Description A) Received fresh, labeled with the patient's name and prostate adenoma, is a 57 gram, 6.8 x 6.7 x 2.7 cm aggregate of multiple pollard rubbery cauterized tissue fragments. Rail Switch Operator tissue submitted in 11 cassettes. Note: Approximately 20% of the specimen is submitted. SAURAV 01/26/2025 01/28/2025 11:12 AM CDT [facility] Microscopic Description The final diagnosis is based on microscopic examination of appropriate sections of all specimens. 01/28/2025 11:12 AM T [facility] Additional Information Interpreted at [facility] [employer] [facility], Central Laboratory - [address], [place] [address] 01/28/2025 11:12 AM CDT [facility] Tissue SPECIMEN FROM PROSTATE / Unknown 01/26/2025 1:38 PM CDT 01/26/2025 1:59 PM CDT us Obey Pedraza MD PATHOLOGY/CYTOLOGY Final Result [facility] [address] [place] [address], [facility] SENDOUT INTERNAL ZIP [address] [place] [address] * Supraglottic (01/26/2025 11:35 AM CDT) Narrative Lion Torres CRNA Student - 01/26/2025 11:35 AM CDT Lion Torres CRNA Student 01/26/2025 11:35 AM Procedure: Supraglottic Patient location during procedure: OR Supraglottic Airway Properties Mask Ventilation: easy Type: i-gel Tube Size: 5 Insertion Attempts: 1 Placement Verification: auscultation and CO2 detection Assessment Assessment: atraumatic and dentition unchanged us Emily Edwards MD ANESTHESIA PX NOTE ORDERABLE S [...] candidate for conscious sedation. The endoscope [id number] was passed through the anus andadvanced to [...] 9:22 AM Procedure Code(s): --- Professional --- 76520, Colonoscopy, flexible; with removalof tumor(s), polyp(s), or other lesion(s) bysnare technique Diagnosis Code(s): --- Professional --- Z86.010, Personal history of colonicpolyps D12.2, Benign neoplasm of ascending colon K57.30, Diverticulosis of large intestine without perforation or abscess withoutbleeding CPT copyright 2021 [employer]. All rights reserved. The codes documented in this report are preliminary and upon principal technical specialist reviewmay be revised to meet current compliance [...] Gender: M Referring MD: WARREN PEÑA Site: [facility] [place] Study performed: Iliac, (bilateral) Indication for study: [...] Accreditation Commission (IAC/Vascular), www.intersocietal.org/vascular Report generated by Jogg. Final Procedure Note Valdemar Sandoval MD - 12/10/2020 VASCULAR ULTRASOUND REPORT SURESH MOLINA : 1950 Study Date: 12/09/2020 9:05:56 AM Age: 70 years Tech: Elo Juarez Gender: M Referring MD: WARREN PEÑA Site: [facility] Vascular Center Study performed: Iliac, (bilateral) Indication [...] This study was performed and interpreted by [facility] [facility], a service accredited by the Intersocietal Accreditation Commission (IAC/Vascular),www.intersocietal.org/vascular Report generated by Jogg. Final us Warren Peña MD Fi nal Result from Last 3 Months or Most Recently Relevant to Health Maintenance Insurance [facility] MEDICARE PART B HB ONLY [facility] MEDIC[facility] [place] ONLY MEDICARE PART A [place] ONLY Advance Directives * Full Code (Latest Code Status on File) Date Activated Date Inactivated Comments 02/10/2025 12:26 AM 02/14/2025 1:00 PM Question Answer Comments Code Status Discussion: Reviewed Preferences * Full Code Date Activated Date Inactivated Comments 01/26/2025 9:57 [...] Code Status Discussion: Not Discussed Care Teams [employer] Ex[employer] Operator Relationship Specialty Start Date End Date Santi Juarez MD [address] [place] [address] PCP - General Family Practice 12/07/20
--- OUTSIDE RECORDS SUMMARY | 2025-02-18 15:17 | XMS_ITS | Clinical Summary ---
Author Organization [facility] Address [address] 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 Gender Identity Not on file Sexual Orientation Not on file Last Filed Vital Signs Vital Sign Reading Time Taken Comments Blood Pressure 122/78 09/10/2017 9:11 AM BULK MAIL CLERK Pulse 70 09/10/2017 9:11 AM BULK MAIL CLERK Temperature 36.7 C (98 F) 03/26/2013 9:28 AM CDT Respiratory Rate 18 03/26/2013 9:28 AM CDT Oxygen Saturation 98% 03/26/2013 9:28 AM CDT Inhaled Oxygen Concentration - - Weight 106.6 kg (235 lb) 09/10/2017 9:11 AM BULK MAIL CLERK Height 188 cm (6' 2) 09/10/2017 9:11 AM BULK MAIL CLERK Body Mass Index 30.17 09/10/2017 9:11 AM BULK MAIL CLERK Plan of Treatment Not on file Insurance MEDICARE Care Teams Tobacco Prizer Relationship Specialty Start Date End Date Guero Hutchinson MD [id number] [place] [id number] [place] [id number] PCP - General Urology 11/14/15
--- NOTE | 2025-02-18 15:26 | ED.GENADULT ---
HPI - General Adult General Date Seen: 02/18/25 Chief complaint: Dizziness/Vertigo Stated complaint: pain in abdomen after surgery, dizzy Time Seen by Provider: 02/18/25 15:25 History of Present Illness HPI narrative: 75-year-old male with a past medical history of atrial fibrillation (Eliquis), hyperlipidemia, hypertension, anemia, carotid stenosis, prior CVA, type 2 diabetes, and bladder cancer, BPH. He apparently had urinary retention with a Fragoso catheter in for 6 months up until January. He had prostate surgery done January 26. He was seen here in the ER on 02/09 for gross hematuria Per records from [facility] he was admitted at [facility] on 01/26 after prostate surgery (transurethral bipolar enucleation of prostate, done by Dr. Pedraza on 01/26). He has a live discharged home on 01/27. Resume Eliquis on 02/01. He return to the ER here in [place] on 02/09 with hematuria and was transferred to [facility] for bladder irrigation. Hemoglobin was 10.9. Labs showed a white count of 23, hemoglobin of 10.9, platelet count 356. It looks like hemoglobin went down to 8.3 on 02/11 and then was back up to 9.1 on 02/12. It looks like he had another trip to the OR on 02/[address] Holbrook for cystoscopy with clot evacuation and fulguration of the bladder. Per operative notes there was mucosal inflammation with no tumors visualized in the bladder. Prostate fossa was cauterized for several foci of bleeding. He was able to urinate the day after his surgery and was able to discharge home. He has been home since Saturday. He felt pretty well on Saturday, Saturday, and yesterday on Saturday. He went to his PCP, Dr. Ghosh, yesterday and was feeling pretty good. Beginning yesterday evening he began to feel sick. He was a little bit weak, she every and shaky last night. This morning he has also developed some suprapubic pain, notable with urination, dizziness and lightheadedness, and also shivering chills and shakes. He does not have a cough. No trouble breathing. No chest pain. No sore throat. No rash. His urine has been clear this morning. He was able to urinate a small amounts prior to coming in but still feels like his bladder is irritated and full. He has not yet restarted his Eliquis. He is due to restarted in 9 more days on February 27. Related Data Home Medications ?Medication ?Instructions ?Recorded ?Confirmed docusate sodium 100 mg capsule 100 mg PO BID PRN 02/17/25 02/18/25 Previous Rx's ?Medication ?Instructions ?Recorded epinephrine 0.3 mg/0.3 mL 0.3 ml IM .As Needed as needed PRN 07/03/23 injection, auto-injector anaphylaxis #2 ea apixaban 5 mg tablet (Eliquis) 5 mg PO BID #60 tabs 12/02/24 Held on 02/17/25. Instructions: Per [facility] atorvastatin 40 mg tablet 40 mg PO HS #90 tabs 01/11/25 diltiazem HCl 60 mg 60 mg PO BID #60 caps 01/11/25 capsule,extended release 12 hr glipizide 10 mg tablet, extended 10 mg PO DAILY #90 tabs 01/11/25 release 24 hr lisinopril 10 mg tablet 10 mg PO DAILY #90 tabs 01/11/25 metformin 500 mg tablet,extended 1,000 mg (2 x 500 mg) PO QDAY #180 01/11/25 release 24 hr tabs Allergies Allergy/AdvReac Type Severity Reaction Status Date / Time bee venom protein (honey bee) Allergy Verified 02/18/25 16:07 Penicillins Allergy Verified 02/18/25 16:07 tamsulosin (From Flomax) AdvReac Intermediate orthostatic Verified 02/18/25 16:07 [facility]ension [facility] Medical History (Updated 02/17/25 @ 16:39 by Santi Juarez MD) Hypertension ?I10 - Essential (primary) hypertension (ICD-10) Stenosis of right carotid artery (01/03/21) ?I65.21 - Occlusion and stenosis of right carotid artery (ICD-10) Hypercholesterolemia (04/18/15) ?E78.00 - Pure hypercholesterolemia, unspecified (ICD-10) Hematuria (04/18/15) ?R31.9 - Hematuria, unspecified (ICD-10) Benign neoplasm of colon (05/28/07) ?D12.6 - Benign neoplasm of colon, unspecified (ICD-10) Anaphylactic reaction to bee sting (04/18/15) ?T63.441A - Toxic effect of venom of bees, accidental (unintentional), initial encounter (ICD-10) ?T78.2XXA - Anaphylactic shock, unspecified, initial encounter (ICD-10) Allergic rhinitis (12/11/05) ?J30.9 - Allergic rhinitis, unspecified (ICD-10) Atrial fibrillation ?I48.91 - Unspecified atrial fibrillation (ICD-10) Hyponatremia ?E87.1 - Hypo-osmolality and hyponatremia (ICD-10) Chronic hyponatremia ?E87.1 - Hypo-osmolality and hyponatremia (ICD-10) Right lumbar radiculopathy ?M54.16 - Radiculopathy, lumbar region (ICD-10) Leukocytosis ?D72.829 - Elevated white blood cell count, unspecified (ICD-10) Lumbar radiculopathy ?M54.16 - Radiculopathy, lumbar region (ICD-10) Chronic low back pain ?M54.50 - Low back pain, unspecified (ICD-10) ?G89.29 - Other chronic pain (ICD-10) Cerebrovascular accident (CVA) (07/2020) ?I63.9 - Cerebral infarction, unspecified (ICD-10) Bladder cancer (2014) ?C67.9 - Malignant neoplasm of bladder, unspecified (ICD-10) Allergic to bees ?Z91.030 - Bee allergy status (ICD-10) Adenomatous polyp of colon ?D12.6 - Benign neoplasm of colon, unspecified (ICD-10) Gout ?M10.9 - Gout, unspecified (ICD-10) Diabetes mellitus ?E11.9 - Type 2 diabetes mellitus without complications (ICD-10) Abnormal gait ?R26.9 - Unspecified abnormalities of gait and mobility (ICD-10) Surgical History History of amputation of toe ?Z89.429 - Acquired absence of other toe(s), unspecified side (ICD-10) History of colonoscopy ?Z98.890 - Other specified postprocedural states (ICD-10) History of tonsillectomy (1968) ?Z90.89 - Acquired absence of other organs (ICD-10) History of right-sided carotid endarterectomy ?Z98.890 - Other specified postprocedural states (ICD-10) Social History Narrative: SOCIAL HISTORY: He is single. Retired. One daughter living in [facility] that he does not see much. No longer working at [employer]. No longer working for the [employer]. 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 Code status is full. He does not want prolonged life support. His nephew, Adrien Araiza, of [place] is healthcare power of assistant city attorney HABITS: Sporadic walking for exercise. Sporadic smoking in the past. He denies smoking at this point. No alcohol or recreational drug use. FAMILY HISTORY: No changes. Parents both . He did not know them well. Father around 80 of unknown cause. Mother around 70 of unknown cancer. Three sisters all living with borderline diabetes otherwise healthy. What is your current living situation?: I presently have a place to live Problems where you live: no known problems Problems where you live details: N/A In the past 12 months, utilities in danger of being shut off: no In past 12 months, lack of transportation kept you from medical appts, meetings, work, or getting things needed for daily living: no In the past 12 mos, have been you worried that your food would run out before you had money to buy more?: never true In the past 12 mos, the food you bought just didn't last and you didn't have money to buy more?: never true Highest level of school completed/degree received: high school graduate Smoking Status: Former smoker What tobacco products do you use: cigarettes Smoking quit date/years: <= 15 years ago Do you use any of these nicotine containing products: None Second hand tobacco smoke exposure: No How often do you have a drink containing alcohol: never AUDIT-C Alcohol total score: 0 Non-prescribed substance use: marijuana (any form) How often does anyone, including family, friends and others, physically hurt you: never How often does anyone, including family, friends and others, insult or talk down to you: never How often does anyone, including family, friends and others, threaten you with harm: never How often does anyone, including family, friends and others, scream or curse at you: never service: Yes Exam Narrative: Exam Narrative: Constitutional: Appears well-developed and well-nourished. Alert. Conversant. He is alert and conversant but is shivering and has rigors as I enter the room. HENT: Head: Atraumatic. Nose: Nose normal. Mouth/Throat: Oral mucosa is clear and moist. Not desiccated or cracked. no trismus. Pharynx normal. Tonsils symmetric. No tonsillar enlargement, erythema, or exudate. Eyes: Conjunctivae normal. EOM normal. Pupils equal, round, and reactive to light. No scleral icterus. Neck: Normal range of motion. Neck supple. No tracheal deviation present. Cardiovascular: Normal rate, regular rhythm. No gallop. No friction rub. No murmur heard. Symmetric radial artery pulses Pulmonary/Chest: Effort normal. No stridor. No respiratory distress. No wheezes. No rales. No rhonchi . No tenderness. Abdominal: Soft. Bowel sounds normal. No distension. No mass. Marked suprapubic and left lower quadrant tenderness. No rebound. No guarding. No upper abdominal tenderness. No CVA tenderness. Musculoskeletal: RUE: Normal range of motion. No tenderness. No deformity LUE: Normal range of motion. No tenderness. No deformity RLE: Normal range of motion. No edema. No tenderness. No deformity LLE: Normal range of motion. No edema. No tenderness. No deformity Neurological: Alert and oriented to person, place, and time. Normal strength. CN II-VII intact. No sensory deficit. GCS eye subscore is 4. GCS verbal subscore is 5. GCS motor subscore is 6. Normal coordination Skin: Skin is warm and dry. No rash noted. No pallor. Normal capillary refill. Psychiatric: Normal mood. Normal affect. Const: Vital Signs, click to edit/add: Vital Signs - 24 hr 02/18/25 15:18 Temperature 98.9 F Pulse Rate [Pulse Oximeter] 90 Respiratory Rate 18 Blood Pressure [Ri ght Upper Arm] 161/78 H Pulse Oximetry 96 Oxygen Delivery Me thod Room Air Course Vital Signs Vital signs: Initial Vital Signs Temperature 98.9 F 02/18/25 15:18 Temperature Source Oral 02/18/25 15:18 Pulse Rate 90 02/18/25 15:18 Respiratory Rate 18 02/18/25 15:18 Blood Pressure 161/78 H 02/18/25 15:18 Blood Pressure Mean 105 02/18/25 15:18 Blood Pressure Position Sitting 02/18/25 15:18 Pulse Oximetry 96 02/18/25 15:18 Oxygen Delivery Method Room Air 02/18/25 15:18 Vital Signs Temperature 98.9 F 02/18/25 15:18 Pulse Rate 90 02/18/25 15:18 Respiratory Rate 18 02/18/25 15:18 Blood Pressure 161/78 H 02/18/25 15:18 Pulse Oximetry 96 02/18/25 15:18 Oxygen Delivery Method Room Air 02/18/25 15:18 Temperature 98.9 F 02/18/25 15:18 Pulse Rate 90 02/18/25 15:18 Respiratory Rate 18 02/18/25 15:18 Blood Pressure 161/78 H 02/18/25 15:18 Pulse Oximetry 96 02/18/25 15:18 Oxygen Delivery Method Room Air 02/18/25 15:18 Medical Decision Making MDM Narrative Medical decision making narrative: 75-year-old male with a history of BPH and prostate surgery done by Dr. parikh through [facility] and procedure done at [facility] in January. He was complicated by postprocedure gross hematuria requiring rehospitalization at [facility] for continuous bladder irrigation and a repeat bladder procedure (fulguration of the bleeding bladder mucosa around his prostate). He was discharged home 4 days ago. He started developing chills and symptoms of illness last night and presents to the ER today with shivering rigors, chills, dizziness and lightheadedness. The presentation is not febrile but he does have shivering rigors concerning for infection. In addition to that he is developing progressively worsening suprapubic pain. Upon arrival his nurse did do a bladder scan which showed a postvoid residual of 20 mL. At this point I do not think his suprapubic pain is due to urinary retention so will hold off on Fragoso catheter. Concern is for possible urinary tract infection or, with the chills and rigors, possible developing urosepsis. I have ordered laboratory workup including CBC, BMP, blood cultures, lactic. I do note that according to his records from [facility] his white count was 23 on 02/10 but came down to 10.0 x /. Hemoglobin was 10.9 on 02/10, had a jamison of 8.3 on 02/11 and came up to 9.1 on 02/12. I did order broad-spectrum antibiotics with meropenem and vancomycin for possible sepsis after discussion with our ED pharmacist (penicillin allergy). At this point strong suspicion is for probable urosepsis. Because he had marked tenderness on his abdominal exam I have also ordered a CT scan to look for other causes of lower abdominal pain. Would seem unlikely but consider possible bladder rupture from his surgery or other associated abscess. I saw this patient at the end of my shift. At this point none of his laboratory workup, urinalysis, or imaging findings are back. Discussed with my partner, Dr. Varghese at 4:10 p.m.. She will follow up on all the outstanding test results. She will determine ultimate disposition but I anticipate he will probably require hospitalization. If there is no immediate surgical need for he may be able to stay in the hospital here at [place]. Although unlikely, if all symptoms are resolved and all of his labs are reassuring, potentially could discharge home. ECG Data Attestation: I personally reviewed and interpreted this ECG as follows: Interpretation: Normal sinus rhythm Rate 80 FL interval 176 QRS axis normal. No pathologic Q-waves. No ST segment elevation or depression. QTC 399 Discharge Plan Discharge Prescriptions: No Action epinephrine 0.3 mg/0.3 mL auto-injector 0.3 ml IM .As Needed as needed PRN (Reason: anaphylaxis) Qty: 2 0RF atorvastatin 40 mg tablet 40 mg PO HS Qty: 90 3RF diltiazem HCl 60 mg capsule,extended release 12 hr 60 mg PO BID Qty: 60 5RF glipizide 10 mg tablet extended release 24hr 10 mg PO DAILY Qty: 90 3RF lisinopril 10 mg tablet 10 mg PO DAILY Qty: 90 3RF metformin 500 mg tablet extended release 24 hr 1,000 mg PO QDAY Qty: 180 3RF docusate sodium 100 mg capsule 100 mg PO BID PRN Eliquis 5 mg tablet 5 mg PO BID Qty: 60 10RF Patient Comments: February 27--hold and then restart Follow Up/Referrals: Santi Juarez MD [Primary Care Provider, Family Practice]
--- NOTE | 2025-02-18 15:56 | CRLHL7_ITS ---
For Patients: As a result of the Century Cures Act, medical imaging exams and procedure reports are released immediately into your electronic medical record. You may view this report before your referring provider. If you have questions, please contact your health care provider. INDICATION: Abdominal pain. TECHNIQUE: Multiplanar CT examination of the abdomen and pelvis was performed after the administration of 86 mL Isovue 370 intravenous contrast. COMPARISON: CT abdomen pelvis 02/09/2025, 09/23/2024. FINDINGS: Lower chest: No focal consolidation. Normal heart size. No pleural effusions or pneumothorax. Small hiatal hernia. Liver: Unremarkable. Gallbladder: Unremarkable. Biliary: Unremarkable. Pancreas: Within normal limits. Spleen: Unremarkable. Adrenal glands: Unremarkable. Renal/ureters/bladder: Normal in size and symmetrically enhancing. No obstructive uropathy. No hydronephrosis or obstructive urinary calculi. No suspicious renal masses. The ureters appear unremarkable. Postprocedural air within the bladder. The bladder appears mildly thick walled diffusely. Previously visualized hemorrhagic blood product within the bladder lumen has resolved. Pelvis: Decreased irregularity of the prostate in this patient with a recent TURP defect. Gastrointestinal: No bowel wall thickening or bowel obstruction. Normal appendix. Colonic diverticulosis without pericolonic fat stranding. Moderate colonic stool burden. Irregular, lobulated mass arising from the anterior gastric antrum measuring 4.1 x 3.9 cm, increased in size since prior examinations from 02/09/2025 and 09/23/2024. Vasculature: No aortic aneurysm. The portal vein remains patent. Severe aortoiliac atherosclerotic calcifications. Lymph nodes: No pathologic lymphadenopathy by size criteria. Peritoneum: No free fluid or pneumoperitoneum. No drainable fluid collections. Abdominal wall/soft tissues: Unremarkable. Bones: No acute osseous abnormalities. Degenerative changes of the visualized thoracolumbar spine. IMPRESSION: 1. Irregularly lobulated gastric mass arising from the anterior gastric antrum measuring 4.1 x 3.9 cm, suspicious for underlying malignancy. No pathologic lymphadenopathy. Recommend GI consultation and further evaluation with endoscopy. 2. Resolution of the hemorrhagic blood products within the bladder in this patient that is status post recent TURP. 3. Mild circumferential bladder wall thickening, raising the possibility of underlying cystitis. Correlation with urinalysis advised. 4. Colonic diverticulosis without CT evidence of acute diverticulitis. 5. No other acute abdominal pelvic findings. No intra-abdominal abscess. The etiology of the patient`s pain and symptomatology is not elucidated on this examination. Findings of the gastric mass and its recommended follow up were communicated with Dr. Varghese at 4:48 PM on 02/18/[address] Morris. Please note that all CT scans at this facility use dose modulation, iterative reconstruction, and/or weight-based dosing when appropriate to reduce radiation dose to as low as reasonably achievable. Dictated by Cameron Morris MD @ 02/18/2025 4:49:05 PM (Electronically Signed)
[2025-02-18 16:13] LABS: Lactate* 2.2 mmol/L (0.5-1.9)
[2025-02-18 16:21] LABS: Hematocrit 31.7 % (37.0-53.0); Hemoglobin* 10.3 gm/dL (13.5-17.5); Immature Granulocytes Abs Auto 0.20 K/uL (0.00-0.30); Immature Granulocytes Pct Auto 1.1 %; Mean Corpuscular HGB Conc 33 gm/dL (32-36); Mean Corpuscular Hemoglobin 27 pg (26-34); Mean Corpuscular Volume 82 fL (80-100); RDW Coefficient of Variation % 14.2 % (11.5-15.5); Red Blood Count 3.87 m/uL (4.30-5.90); White Blood Count* 18.01 K/uL (4.50-11.00)
[2025-02-18 16:24] LABS: Lymphocytes Absolute Auto 1.90 K/uL (0.90-2.90); Slide Review Reflex No
[2025-02-18 16:38] LABS: Chloride* 103 mmol/L (96-114); Potassium* 4.4 mmol/L (3.6-5.1); Sodium* 136 mmol/L (135-149)
[2025-02-18 16:41] LABS: Blood Urea Nitrogen* 13 mg/dL (7-30); Creatinine* 0.8 mg/dL (0.5-1.5); Est. Creatinine Clearance* 74.71; Estimated Glomerular Filt Rate 93 ml/min
[2025-02-18 16:42] LABS: Anion Gap 8 mEq/L (7-15); Calcium* 9.1 mg/dL (8.4-10.6); Carbon Dioxide* 25 mmol/L (20-32); Glucose* 105 mg/dL (60-115)
[2025-02-18] MEDS: ACETAMINOPHEN 500 MG TABLET 1000 MG PO (16:42)
[2025-02-18] MEDS: MEROPENEM 1 GM in 0.9 % SODIUM CHLORIDE Mini-bag 100 ML IVPB (16:52)
[2025-02-18 17:02] LABS: Appearance Urine Clear (Clear)
--- OUTSIDE RECORDS SUMMARY | 2025-02-18 17:19 | XMS_ITS | Data Portability ---
Author Organization [facility], [facility] Address [address] [place] [address] Care Team Providers Care Sane Rn Name Role Phone SHEA DURON Primary Care Provider [phone] Assessment Encounter Date Assessment Date Assessment LastModified [...] dipstick - Per UTI protocol 2024 025 [facility], [address], [address], [place], [address], 10/02/2024 11:59:38 urinalysi s, microscop ic [address] [facility], [address], [address], [place], [address], 10/02/2024 11:46:20 culture, urine 2024 025 [facility], [address], [address], [place], [address], 10/04/2024 12:02:22 Referral None recorded. Procedures None recorded. Surgeries laser enucleati on of prostate with morcellat ion (SURG) 2024 025 MELIZA Not available 02/04/2025 10:03:36 Imaging None recorded. Medication Orders None recorded. Patient TargetsNo targets recorded. Patient Instructions Encounter Date Encounter Id Patient Instructions Last Modified By Organization Details Last Modified Time 10/15/2024 [id number] Benign prostatic hyperplasia with lower urinary tract [...] [hpf] 0 - 2 abnormal Not Available [facility] [address], [place], [address], 10/02/2024 11:59:38 10/02/19 25 10/02/2024 UA MICRO SCOPI C (ABNO RMAL COLOR ) U-RBC PACKED [hpf] 0 - 2 abnormal Not Available [facility] [address], [place], [address], 10/02/2024 11:59:38 10/02/19 25 10/02/2024 UA MICRO SCOPI C (ABNO RMAL COLOR ) bacteria MANY [hpf] none;r are abnormal Not Available [facility] [address], [place], [address], 10/02/2024 11:59:38 10/02/19 25 10/02/2024 UA MICRO [...] for provi katy revie w. Not Available [facility] [address], [place], [address], 10/02/2024 11:59:38 10/02/19 25 10/02/2024 UA MICRO SCOPI C (ABNO RMAL COLOR ) sperm PRESEN T /hpf none-s een abnormal Not Available [facility] [address], [place], [address], 10/02/2024 11:59:38 10/02/19 25 10/02/2024 URINE CULTU [...] ate 1) Sensi tivit y Ronel sis [place] te 1 ----- ----- ----- ----- ----- [...] s Desk Refer ence or from the [facility] actur er. S= Susce ptibl e;I= [...] for provi katy revie w. Not Available [facility] [address], [place], [address], 10/04/2024 12:02:22 09/23/19 25 09/23/2024 CT, urogr am No observ ation record ed. [email or web address] [facility] [address], [place], [address], 10/13/2024 08:55:07 Result Notes None recorded. Problems Name Problem SNOMED Code Status Onset Date Resolution Date Notes Provider Name and Address Organization Details Recorded Time Retention of urine 188531423 Active 2024 Kurt rajan [facility] 5 12:52:01 Type 2 diabetes mellitus 72775996 Active 2024 Kurt rajan [place] [facility] 12:52:35 Hypertensiv e disorder 80816784 Active 2024 Kurt rajan, [facility] 12:52:38 Lower urinary tract symptoms due to benign prostatic hypertrophy 6040776931681 1 Active 2024 Kurt rajan, [facility] 10:56:02 Problem Notes None recorded. Procedures Surgical History Date Name Laterality Status Provider Name and Address Organization Details Recorded Time 01/29/20 25 Fill and Pull/Voiding Trial/TOV completed Britt Kennedy [facility] 01/28/2025 13:02:59 01/27/20 25 LASER ENUCLEATION OF PROSTATE WITH MORCELLATION (SURG) completed Dagmar Pride [facility] 02/04/2025 10:03:41 12/01/19 25 Urethral Catheter Change completed Karina Polo [facility] 11/30/2024 15:17:51 10/30/19 25 SWENSON CHANGE completed Claudia Rossi [facility] 10/29/2024 16:42:14 10/16/19 25 COMPLEX VISIT completed Obey Pedraza MD [address] [place] [address],[address], [address], [facility] 10/15/2024 14:26:19 10/07/19 25 Blood Draw/SPECIAL SERVICES AGENT/PSA RESULTS cancelled Elo Bishop [facility] 10/05/2024 11:50:19 09/29/19 25 Urodynamic Studies completed Dwaine Kong MD [address] [place] [address],[address], [address], [facility] 10/11/2024 11:34:02 09/29/19 25 Swenson Catheter Insertion completed Chelsey Munguia [facility] 09/29/2024 15:46:01 09/09/19 25 Cystoscopy- male completed Obey Pedraza MD [address] [place] [address],[address], [address], [facility] 09/09/2024 11:09:52 09/09/19 25 Past Data Reviewed completed Obey Pedraza MD [address] [place] [address],[address], [address], [facility] 09/09/2024 09:40:02 01/11/20 24 Colonoscopy completed [facility] 09/09/2024 10:56:16 Imaging Results None recorded. Procedure Notes None recorded. Medical Equipment None Reported. Allergies Allergen ID Allergen Name Allergen Category Reaction Reaction Severity Criticality Documentation Date Start Date Code Code System Note Provider Name and Address Organization Details Recorded Time 699725 honey bee venom medicatio n Not available Not available Not available 09/01/2024 92476 7 RxNorm [facility] 12:51:15 650758 Product containin g penicilli n (product) medicatio n Not available Not available Not available 09/01/2024 15984 8001 SNOMED [facility] 12:51:21 Medications Name Sig Start Date [...] Updated DateTime 10/02/2024 187.96 cm 23.1 kg/m2 89244.63 g Eleni Thomas [facility] 10/02/2024 11:35:02 Date Recorded Body height Provider Name an d Address Organization Details Last Updated DateTime 10/15/2024 187.96 cm Kurt Owens [facility] 13:52:17 Date Recorded Body height Provider Name an d Address Organization Details Last Updated DateTime 10/29/2024 187.96 cm Claudia Rossi [facility] 10/29/2024 16:34:46 Date Recorded Body height Provider Name an d Address Organization Details Last Updated DateTime 11/30/2024 187.96 cm Karina Sycori [facility] 11/30/2024 14:53:23 Date Recorded Body height Provider Name an d Address Organization Details Last Updated DateTime 01/28/2025 187.96 cm Britt Brent [facility] 01/28/2025 13:17:03 Social History Question Answer Notes LastModified by Organizat ion Details LastModified Time Tobacco Smoking Status Former Smoker Kurt Owens [facility] 09/09/2024 10:55:43 What Is Your Level Of Caffeine Consumption? None Information not available 09/09/2024 When Did You Quit Smoking? 6-10yearssin [email or web address] tte Information not available 09/09/2024 What Was The Date Of Your Most Recent Tobacco Screening? 01/28/2025 [email or web address] Information not available 01/28/2025 How Much Tobacco [...] trivalent, PF 4 completed Kurt Meath null, [facility] 09/09/2024 10:52:31 zoster recombinant 3 completed Kurt Meath null, [facility] 09/09/2024 10:52:31 zoster recombinant 3 completed Kurt Meath null, [facility] 09/09/2024 10:52:31 Influenza, high-dose, quadrivalent, PF 1 completed Kurt Meath null, [facility] 09/09/2024 10:52:31 Influenza, high-dose, quadrivalent, PF 0 completed Kurt Meath null, [facility] 09/09/2024 10:52:31 Influenza, adjuvanted, quadrivalent, PF 3 completed Kurt Meath null, [facility] 09/09/2024 10:52:31 Influenza, adjuvanted, quadrivalent, PF 2 completed Kurt Meath null, [facility] 09/09/2024 10:52:31 COVID-19, mRNA, LNP-S, PF, 30 mcg/0.3 mL dose 1 completed Kurt Meath null, [facility] 09/09/2024 10:52:31 COVID-19, mRNA, LNP-S, PF, 30 mcg/0.3 mL dose 1 [facility] 09/09/[facility] 10:52:31 COVID-19, mRNA, LNP-S, PF, 30 mcg/0.3 mL dose 1 completed Kurt Meath null, [facility] 09/09/2024 10:52:31 COVID-19, mRNA, LNP-S, bivalent, PF, 30 mcg/0.3 mL dose 2 completed Kurt Meath null, [facility] 09/09/2024 10:52:31 RSV, recombinant, protein subunit RSVpreF, adjuvant reconstituted, 0.5 mL, PF 4 completed Kurt Meath null, [facility] 09/09/2024 10:52:31 COVID-19, mRNA, LNP-S, PF, 50 mcg/0.5 mL 4 completed Kurt Meath null, [facility] 09/09/2024 10:52:31 COVID-19, mRNA, LNP-S, PF, 50 mcg/0.5 mL 3 completed Kurt Meath null, [facility] 09/09/2024 10:52:31 pneumococcal polysaccharide PPV23 8 completed Kurt Meath null, [facility] 09/09/2024 10:52:31 Tdap 6 completed Kurt Meath null, [facility] 09/09/2024 10:52:31 Pneumococcal conjugate PCV 13 7 completed Kurt Meath null, [facility] 09/09/2024 10:52:31 zoster live 7 completed Kurt Meath null, [facility] 09/09/2024 10:52:31 Influenza, high-dose, trivalent, PF 8 completed Kurt Meath null, [facility] 09/09/2024 10:52:31 Influenza, high-dose, trivalent, PF 7 completed Kurt Meath null, [facility] 09/09/2024 10:52:31 Influenza, high-dose, trivalent, PF 9 completed Kurt Meath null, [facility] 09/09/2024 10:52:31 Td (adult), 2 [...] quadrivalent, PF 6 completed Kurt Meath null, [facility] 09/09/2024 10:52:31 Influenza, split virus, quadrivalent, PF 4 completed [facility], [facility] 09/09/2024 10:52:31 COVID-19, mRNA, LNP-S, PF, 25 mcg/0.25 mL 5 completed Not Available [facility] 01/28/2025 10:12:20 Past Encounters Encounter ID Performer Location Encounter Start Date Encounter Closed Date Diagnosis/Indication Diagnosis SNOMED-CT Code Diagnosis ICD10 Code Diagnosis Note [id number] MD Dinesh Fish_Christopher melendez [address] [place] [address] 09/09/2024 10:45:26 09/09/2024 11:49:30 Lower urinary tract symptoms due to benign prostatic hypertrophy 2612171681 9101 N40.1 Retention of urine 68238 4002 R33.9 Renato hematuria 42762203 5 R31.0 [id number] MD Geovanni Fish [address] [place] [address] 09/29/2024 12:37:22 10/12/2024 09:16:29 Lower urinary tract symptoms due to benign prostatic hypertrophy 3142616525 9101 N40.1 Retention of urine 77621 4002 R33.9 [id number] MD Geovanni Fish [address] [place] [address] 10/02/2024 11:30:07 10/07/2024 04:01:24 Urinary tract infectious disease 85206810 N39.0 Per UTI/mechanic insulator protocol. UA/UC today. [id number] MD Dinesh Fish[address] [address] 10/15/2024 13:50:10 10/19/2024 09:45:18 Retention of urine 171573290 R33.9 Lower urin winsome tract symptoms due to benign prostatic hypertrophy 7938739933 9101 N40.1 Renato hematuria 46994498 5 R31.0 [id number] MD Geovanni Fish [address] [address] 10/29/2024 14:34:46 10/29/2024 16:55:37 Retention of urine 204957435 R33.9 [id number] MD Dinesh FishNii[address] [address] 11/30/2024 14:41:58 12/02/2024 15:58:16 Retention of urine 459354289 R33.9 [id number] MD Dinesh FishChristopher [address] [address] 01/28/2025 10:11:32 02/01/2025 15:43:45 Retention of urine 303674793 R33.9 Health Concerns Section Related Observation LastModified by Organization Detai ls LastModified Time None Recorded Concern Status LastModified by Organization Details LastModified Time None Recorded Advance Directives Directive None Recorded Payers Insurance Date Sequence Insurance Name Policy Number Policy Bustamante Covered Member ID Bustamante Member ID Guarantor Name 01/23/2025 1 [place] [employer] Suresh Martinez [id number] Suresh Martinez 02/01/2025 2 [facility] [id number] Suresh Martinez [id number] Suresh Martinez Notes Date Note Type Note [...] developed gross hematuria and was admitted at [facility] for continuous bladder irrigation.He has failed [...] evidence of outlet obstruction.He was admitted at [facility] from 10/06/2024 - 10/10/2024 with gross hematuria and clot urinary retention.He required cystoscopy, clot evacuation, and fulguration of bleeding 10/08/2024.He is here today to discuss next steps in management. Obey Pedraza MD [address] [place] [address],[address], [place], [address], [facility] 10/15/2024 14:28:58
[2025-02-18] MEDS: VANCOMYCIN 2 GM/400 ML 2 GM/400 ML PIGGYBACK IVPB (17:26)
--- NOTE | 2025-02-18 18:21 | PM.IMHP1 ---
Assessment and Plan Assessment and plan (1) Sepsis: Problem comment: Fever 100.8?, vitally stable. WBC 18.01 with left shift, neutrophils 78, lactate 2.2 in ED improved to 1.6 on admission Suspect UTI as source Recent, recurrent hospitalizations, surgical interventions in January and February as noted UC pending, BC x2 pending, urine MRSA ordered Continue meropenem and vancomycin, awaiting results, deescalating as able Status: Acute Assessment and Plan: Date exam performed: 02/18/2025 Time exam performed: 18:30 Focused exam: I have reassessed tissue perfusion after bolus given Current stage of sepsis: Sepsis/urosepsis, currently vitally stable (2) UTI (urinary tract infection): Problem comment: UA clear, 2+ blood, 2+ LE, negative nitrite, 10-25 WBC, moderate bacteria UC pending Management as above Status: Acute (3) BPH (benign prostatic hyperplasia): Problem comment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 No pathologic lymphadenopathy. Recommend GI consultation and further evaluation with endoscopy - outpatient Status: Acute Total Time Spent Total Time Spent: Today I spent 75 minutes seeing the patient, reviewing Expanse and EPIC notes/diagnostics, discussing the care plan with our care time that includes social work, PT/OT, pharmacy, RT, shelter and documenting my impressions and plan in the medical record. Hospitalist- H&P: HPI History of Present Illness Date Seen: 02/18/25 Chief complaint: pain in abdomen after surgery, dizzy Narrative: Suresh Martinez is a 75 year old male past medical history significant for T2D, hypertension, hyperlipidemia, atrial fibrillation - chronic anticoagulation on hold, ICA stenosis, CVA, gout, hyponatremia, previous bladder cancer, BPH is admitted to the medical floor from the ED with sepsis, suspected source UTI. Recent medical history/interventions: TURP [facility] 01/26-01/27/2025 Readmitted [facility] 02/09-02/14/2025 underwent cystoscopy with clot evacuation and fulguration Outpatient follow-up with Dr. Juarez on 02/17/2025 Patient is seen lying in bed, reports awaking this morning with chills. Shortly thereafter developing abdominal pain, rating 8/10. No temperature taken at home. Denies headache. Has had some dizziness. Decreased appetite without nausea or vomiting. No diarrhea. Has been urinating on his own. Denies gross hematuria. No recent cough or cold symptoms. Denies chest pain or shortness of breath. Abdominal pain has improved to 2/10 following IV medications in the ED. Was afebrile in the ED, upon arrival to the floor is not 100.8?. Quit smoking and drinking alcohol 10-12 years ago. PCP is Dr. Juarez. Full code. Review of Systems Narrative: REVIEW OF SYSTEMS: Complete review of systems performed and negative unless otherwise stated in HPI or below. Medical Decision Making Medical Decision Making Code Status: Full Has patient completed a Health Care Directive: Yes During This Stay, Who Would You Like To Make Decisions For You In The Event You Are Unable To Make Them For Yourself?: lito Mcdonald [facility] Medical History (Updated 02/18/25 @ 19:16 by Stefanie Orozco PA-C) BPH (benign prostatic hyperplasia) ?N40.0 - Benign prostatic hyperplasia without lower urinary tract symptoms (ICD-10) Diabetes mellitus ?E11.9 - Type 2 diabetes mellitus without complications (ICD-10) Hypertension ?I10 - Essential (primary) hypertension (ICD-10) Stenosis of right carotid artery (01/03/21) ?I65.21 - Occlusion and stenosis of right carotid artery (ICD-10) Hypercholesterolemia (04/18/15) ?E78.00 - Pure hypercholesterolemia, unspecified (ICD-10) Hematuria (04/18/15) ?R31.9 - Hematuria, unspecified (ICD-10) Benign neoplasm of colon (05/28/07) ?D12.6 - Benign neoplasm of colon, unspecified (ICD-10) Anaphylactic reaction to bee sting (04/18/15) ?T63.441A - Toxic effect of venom of bees, accidental (unintentional), initial encounter (ICD-10) ?T78.2XXA - Anaphylactic shock, unspecified, initial encounter (ICD-10) Allergic rhinitis (12/11/05) ?J30.9 - Allergic rhinitis, unspecified (ICD-10) Atrial fibrillation ?I48.91 - Unspecified atrial fibrillation (ICD-10) Hyponatremia ?E87.1 - Hypo-osmolality and hyponatremia (ICD-10) Chronic hyponatremia ?E87.1 - Hypo-osmolality and hyponatremia (ICD-10) Right lumbar radiculopathy ?M54.16 - Radiculopathy, lumbar region (ICD-10) Leukocytosis ?D72.829 - Elevated white blood cell count, unspecified (ICD-10) Lumbar radiculopathy ?M54.16 - Radiculopathy, lumbar region (ICD-10) Chronic low back pain ?M54.50 - Low back pain, unspecified (ICD-10) ?G89.29 - Other chronic pain (ICD-10) Cerebrovascular accident (CVA) (07/2020) ?I63.9 - Cerebral infarction, unspecified (ICD-10) Bladder cancer (2014) ?C67.9 - Malignant neoplasm of bladder, unspecified (ICD-10) Allergic to bees ?Z91.030 - Bee allergy status (ICD-10) Adenomatous polyp of colon ?D12.6 - Benign neoplasm of colon, unspecified (ICD-10) Gout ?M10.9 - Gout, unspecified (ICD-10) Abnormal gait ?R26.9 - Unspecified abnormalities of gait and mobility (ICD-10) Surgical History History of amputation of toe ?Z89.429 - Acquired absence of other toe(s), unspecified side (ICD-10) History of colonoscopy ?Z98.890 - Other specified postprocedural states (ICD-10) History of tonsillectomy (1968) ?Z90.89 - Acquired absence of other organs (ICD-10) History of right-sided carotid endarterectomy ?Z98.890 - Other specified postprocedural states (ICD-10) Social History Narrative: SOCIAL HISTORY: He is single. Retired. One daughter living in [facility] that he does not see much. No longer working at [employer]. No longer working for the [employer] [place]. 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 Code status is full. He does not want prolonged life support. His nephew, Adrien Araiza, of [place] is healthcare power of family law attorney HABITS: Sporadic walking for exercise. Sporadic smoking in the past. He denies smoking at this point. No alcohol or recreational drug use. FAMILY HISTORY: No changes. Parents both . He did not know them well. Father around 80 of unknown cause. Mother around 70 of unknown cancer. Three sisters all living with borderline diabetes otherwise healthy. What is your current living situation?: I presently have a place to live Problems where you live: no known problems Problems where you live details: N/A In the past 12 months, utilities in danger of being shut off: no In past 12 months, lack of transportation kept you from medical appts, meetings, work, or getting things needed for daily living: no In the past 12 mos, have been you worried that your food would run out before you had money to buy more?: never true In the past 12 mos, the food you bought just didn't last and you didn't have money to buy more?: never true Highest level of school completed/degree received: high school graduate Smoking Status: Former smoker What tobacco products do you use: cigarettes Smoking quit date/years: <= 15 years ago Do you use any of these nicotine containing products: None Second hand tobacco smoke exposure: No How often do you have a drink containing alcohol: never AUDIT-C Alcohol total score: 0 Non-prescribed substance use: marijuana (any form) How often does anyone, including family, friends and others, physically hurt you: never How often does anyone, including family, friends and others, insult or talk down to you: never How often does anyone, including family, friends and others, threaten you with harm: never How often does anyone, including family, friends and others, scream or curse at you: never service: Yes Meds Home Medications and Allergies Home Medications ?Medication ?Instructions ?Recorded ?Confirmed ?Type epinephrine 0.3 mg/0.3 mL 0.3 ml IM .As Needed as needed PRN 07/03/23 02/18/25 Rx injection, auto-injector anaphylaxis #2 ea apixaban 5 mg tablet (Eliquis) 5 mg PO BID #60 tabs 12/02/24 02/18/25 Rx Held on 02/17/25. Instructions: Per [place] atorvastatin 40 mg tablet 40 mg PO HS #90 tabs 01/11/25 02/18/25 Rx diltiazem HCl 60 mg 60 mg PO BID #60 caps 01/11/25 02/18/25 Rx capsule,extended release 12 hr docusate sodium 100 mg capsule 100 mg PO BID 02/17/25 02/18/25 History glipizide 10 mg tablet, extended 10 mg PO QPM 02/18/25 02/18/25 History release 24 hr lisinopril 10 mg tablet 10 mg PO QAM 02/18/25 02/18/25 History metformin 500 mg tablet,extended 1,000 mg PO QAM 02/18/25 02/18/25 History release 24 hr Allergies Allergy/AdvReac Type Severity Reaction Status Date / Time bee venom protein (honey bee) Allergy Verified 02/18/25 16:07 Penicillins Allergy Verified 02/18/25 16:07 tamsulosin (From Flomax) AdvReac Intermediate orthostatic Verified 02/18/25 16:07 hypotension Exam Narrative: Exam Narrative: PHYSICAL EXAM General: Pleasant, conversant, NAD HEENT: Normocephalic, atraumatic, sclera white, EOMI, oral mucosa moist Cardiovascular: RRR, S1S2. No pitting edema Pulmonary: CTA bilaterally without rhonchi, rales, expiratory wheezes. No dyspnea on room air Abdominal: Soft, nondistended, very mild lower abdominal tenderness, no guarding Neurological: Alert, answering questions appropriately, cranial nerves intact, no focal findings Extremities: No gross joint deformity or swelling. AROMI. Neurovascularly intact Skin: Warm, dry. Const: Vital Signs, click to edit/add: Vital Signs - 24 hr 02/18/25 15:18 02/18/25 15:37 02/18/25 15:45 Temperature 98.9 F Pulse Rate Pulse Rate [Pulse Oximeter] 90 Respiratory Rate 18 23 23 Blood Pressure Blood Pressure [Ri ght Upper Arm] 161/78 H Pulse Oximetry [facility] 02/18/25 16:00 02/18/25 16:17 02/18/25 16:30 Temperature Pulse Rate 83 Pulse Rate [Pulse Oximeter] Respiratory Rate 16 23 20 Blood Pressure Blood Pressure [Ri ght Upper Arm] Pulse Oximetry 89 [facility] 02/18/25 16:45 02/18/25 16:47 02/18/25 16:53 Temperature Pulse Rate 83 87 Pulse Rate [Pulse Oximeter] Respiratory Rate 22 14 20 Blood Pressure 196/121 H 195/84 H Blood Pressure [Ri ght Upper Arm] Pulse Oximetry 95 93 [facility] 02/18/25 17:00 02/18/25 17:02 02/18/25 17:15 Temperature Pulse Rate 84 84 93 Pulse Rate [Pulse Oximeter] Respiratory Rate 28 H 23 11 L Blood Pressure 206/78 H Blood Pressure [Ri ght Upper Arm] Pulse Oximetry 97 98 93 [facility] 02/18/25 17:17 02/18/25 17:25 02/18/25 17:30 Temperature Pulse Rate 90 97 91 Pulse Rate [Pulse Oximeter] Respiratory Rate 19 17 18 Blood Pressure 191/80 H 188/80 H Blood Pressure [Ri ght Upper Arm] Pulse Oximetry 97 93 94 [facility] 02/18/25 17:32 Temperature Pulse Rate 92 Pulse Rate [Pulse Oximeter] Respiratory Rate 20 Blood Pressure 193/77 H Blood Pressure [Ri ght Upper Arm] Pulse Oximetry 93 Oxygen Delivery Me od Hospitalist - H&P: Result Labs Labs: Short CBC 02/18/25 Range/Units 16:00 WBC 18.01 H (4.50-11.00) K/uL Hgb 10.3 L (13.5-17.5) gm/dL Hct 31.7 L (37.0-53.0) % Plt Count 492 H (140-440) K/uL BMP 02/18/25 16:00 Sodium 136 Potassium 4.4 Chloride 103 Carbon Dioxide 25 BUN 13 Creatinine 0.8 Glucose 105 Calcium 9.1 Urine 02/18/25 Range/Units 15:57 Urine Color Yellow (Yellow) Urine Appearance Clear (Clear) Urine pH 7.0 (5.0-8.5) Ur Specific [place] 1.015 (1.000-1.030) Urine Protein Trace A (Negative) Urine Glucose (UA) Negative (Negative) Imaging CT scan - abdomen: Attestation: I have reviewed the pertinent imaging results. Radiologist's impression: Lower chest: No focal consolidation. Normal heart size. No pleural effusions or pneumothorax. Small hiatal hernia. Liver: Unremarkable. Gallbladder: Unremarkable. Biliary: Unremarkable. Pancreas: Within normal limits. Spleen: Unremarkable. Adrenal glands: Unremarkable. Renal/ureters/bladder: Normal in size and symmetrically enhancing. No obstructive uropathy. No hydronephrosis or obstructive urinary calculi. No suspicious renal masses. The ureters appear unremarkable. Postprocedural air within the bladder. The bladder appears mildly thick walled diffusely. Previously visualized hemorrhagic blood product within the bladder lumen has resolved. Pelvis: Decreased irregularity of the prostate in this patient with a recent TURP defect. Gastrointestinal: No bowel wall thickening or bowel obstruction. Normal appendix. Colonic diverticulosis without pericolonic fat stranding. Moderate colonic stool burden. Irregular, lobulated mass arising from the anterior gastric antrum measuring 4.1 x 3.9 cm, increased in size since prior examinations from 02/09/2025 and 09/23/2024. Vasculature: No aortic aneurysm. The portal vein remains patent. Severe aortoiliac atherosclerotic calcifications. Lymph nodes: No pathologic lymphadenopathy by size criteria. Peritoneum: No free fluid or pneumoperitoneum. No drainable fluid collections. Abdominal wall/soft tissues: Unremarkable. Bones: No acute osseous abnormalities. Degenerative changes of the visualized thoracolumbar spine. IMPRESSION: 1. Irregularly lobulated gastric mass arising from the anterior gastric antrum measuring 4.1 x 3.9 cm, suspicious for underlying malignancy. No pathologic lymphadenopathy. Recommend GI consultation and further evaluation with endoscopy. 2. Resolution of the hemorrhagic blood products within the bladder in this patient that is status post recent TURP. 3. Mild circumferential bladder wall thickening, raising the possibility of underlying cystitis. Correlation with urinalysis advised. 4. Colonic diverticulosis without CT evidence of acute diverticulitis. 5. No other acute abdominal pelvic findings. No intra-abdominal abscess. The etiology of the patient`s pain and symptomatology is not elucidated on this examination. Findings of the gastric mass and its recommended follow up were communicated with Dr. Varghese at 4:48 PM on 02/18/[address] Morris.
[2025-02-18 18:28] LABS: Lab Add On Test New Spec Needed
[2025-02-18 18:46] LABS: Lactate* 1.6 mmol/L (0.5-1.9)
--- NOTE | 2025-02-18 19:48 | PC.NURSE ---
End of shift report [id number]:; Alert and oriented x 4. Pain to lower abdomen reported at 2/10, tolerable. Denies any chest pain or SOB. Increased weakness and fever upon admission, MD updated and new orders received. Transfers with SBA d/t weakness. Lung sounds clear to auscultation. Bowel sounds active x 4 quadrants, denies any nausea or vomiting.
[2025-02-18] MEDS: LACTATED RINGERS 1000 ML 1,000 ML IV (20:10)
[2025-02-18] MEDS: ATORVASTATIN CALCIUM 40 MG TABLET PO (21:01)
[2025-02-18] MEDS: DOCUSATE SODIUM 100 MG CAPSULE PO (21:01)
[2025-02-18] MEDS: SODIUM CHLORIDE 0.9 % (FLUSH) 10 ML SYRINGE 5 ML IVF (21:02)
[2025-02-18] MEDS: LACTATED RINGERS 500 ML 500 ML IV (21:11)
[2025-02-18] MEDS: LACTATED RINGERS 1000 ML 1,000 ML 75 ML IV (22:45)
[2025-02-19] VITALS (7 sets, daily range): BP systolic 120–149; BP diastolic 51–77; PULSE 62–84; RESP 14–20; TEMP 37.1–37.8; O2SAT 93–96; BMI 23.3
[2025-02-19] MEDS: MEROPENEM 1 GM in 0.9 % SODIUM CHLORIDE Mini-bag 100 ML IVPB ×3 (02:50→17:31)
[2025-02-19] MEDS: LACTATED RINGERS 1000 ML 1,000 ML 75 ML IV (06:43)
[2025-02-19 06:55] LABS: Hematocrit 26.2 % (37.0-53.0); Hemoglobin* 8.5 gm/dL (13.5-17.5); Mean Corpuscular HGB Conc 32 gm/dL (32-36); Mean Corpuscular Hemoglobin 27 pg (26-34); Mean Corpuscular Volume 83 fL (80-100); Red Blood Count 3.16 m/uL (4.30-5.90)
[2025-02-19 07:05] LABS: Chloride* 103 mmol/L (96-114); Sodium* 133 mmol/L (135-149)
[2025-02-19 07:06] LABS: Potassium* 3.6 mmol/L (3.6-5.1)
[2025-02-19 07:09] LABS: Anion Gap 6 mEq/L (7-15); Blood Urea Nitrogen* 13 mg/dL (7-30); Calcium* 8.4 mg/dL (8.4-10.6); Carbon Dioxide* 24 mmol/L (20-32); Creatinine* 1.0 mg/dL (0.5-1.5); Est. Creatinine Clearance* 76.49; Estimated Glomerular Filt Rate 79 ml/min; Glucose* 125 mg/dL (60-115)
--- NOTE | 2025-02-19 07:26 | PC.NURSE ---
Arrived to find this patient alert and oriented. Hypertensive with a high pulse. He has a fever but he does not report feeling any feverish symptoms. Telemetry shows a normal sinus rhythm. No other major findings on assessment. The patient largely slept through the night and appears otherwise well. It was discussed with the patient that he should take the opportunity to walk more while he is in the hospital. He was out of bed to transfer to his chair once in the morning. Patient continued to appear to be in a stable state of health at time of transfer of care.?
[2025-02-19 07:50] LABS: Slide Review Reflex Yes; White Blood Count* 32.48 K/uL (4.50-11.00)
[2025-02-19 08:14] LABS: Slide Review Acceptable Review (Acceptable)
[2025-02-19] MEDS: DOCUSATE SODIUM 100 MG CAPSULE PO ×2 (08:52→21:21)
[2025-02-19] MEDS: SODIUM CHLORIDE 0.9 % (FLUSH) 10 ML SYRINGE 5 ML IVF ×2 (09:00→21:23)
--- NOTE | 2025-02-19 09:41 | P.IMPN_ITS ---
Assessment and Plan Assessment and plan (1) Sepsis: Problem comment: - suspect UTI as source; blood and urine cultures pending - TMax 100.8? on arrival 02/18/25, other VS stable - WBC 18.01 with left shift, neutrophils 78, lactate 2.2 in ED improved to 1.6 on admission - Recent, recurrent hospitalizations, surgical interventions in January and February as noted below - Meropenem and Vancomycin (02/19) - WBC increased to 32 and Hgb dropped from 10.3 --> 8.5 on 02/19/25; will continue to follow closely and continue abx (patient feels much better 02/19) Status: Acute (2) UTI (urinary tract infection): Problem comment: UA clear, 2+ blood, 2+ LE, negative nitrite, 10-25 WBC, moderate bacteria UC pending Management as above Status: Acute (3) BPH (benign prostatic hyperplasia): Problem comment: - 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, 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 Status: Acute (6) Hypertension: Problem comment: - Continue lisinopril Status: Acute (7) Hyperlipidemia: Problem comment: - continue statin Status: Chronic (8) Diabetes mellitus: Problem comment: - Most recent A1c 7.1 - Continue glipizide, hold metformin on admission - accuchecks and SSI Status: Acute Plan - per above (continue IV abx, await culture results, follow WBC and Hgb) - home when clinically improved with improved labs/culture results (likely 1-2 more days) Subjective Date Seen: 02/19/25 Interval history: Suresh was admitted to the hospital last night for sepsis in the setting of UTI, recent TURP (01/26/25) and cystoscopy with clot evacuation (02/13/25). He was noted to have a fever, WBC of 18 with left shift, lactate of 2.2. Empiric IV vancomycin and meropenem initiated. CT on admission revealed bladder wall thickening consistent with cystitis; also noted a suspicious mass in the anterior gastric antrum which patient is aware of. This morning, Suresh is feeling significantly better. Unfortunately, his white count is increased at 32 and hemoglobin has dropped from 10.3--> 8.5. Blood and urine cultures still pending. He is currently afebrile. Ambulated well with therapies today, no concerns noted. Exam Narrative: Exam Narrative: GEN: Alert and oriented, nontoxic HEENT: EOMIs bilaterally, no scleral icterus CV: RRR, No concerning murmurs R: LCTA bilaterally without concerning wheezing, air movement is adequate Ab: Soft in no tender, tolerates palpation of suprapubic region well Neuro: No focal deficits on limited exam Psych: Appropriate Const: Vital Signs, click to edit/add: Vital Signs - 24 hr 02/18/25 15:18 02/18/25 15:37 02/18/25 15:45 Temperature 98.9 F Pulse Rate Pulse Rate [Pulse Oximeter] 90 Pulse Rate [orthos tatic lying] Pulse Rate [orthos tatic sitting] Pulse Rate [orthos tatic standing] Respiratory Rate 18 23 23 Blood Pressure Blood Pressure [Le ft Arm] Blood Pressure [Ri ght Arm] Blood Pressure [Ri ght Upper Arm] 161/78 H Blood Pressure [or thostatic lying Ri ght Arm] Blood Pressure [or thostatic sitting] Blood Pressure [or thostatic standing ] Pulse Oximetry 96 Oxygen Delivery Me thod Room Air 02/18/25 16:00 02/18/25 16:17 02/18/25 16:30 Temperature Pulse Rate 83 Pulse Rate [Pulse Oximeter] Pulse Rate [orthos tatic lying] Pulse Rate [orthos tatic sitting] Pulse Rate [orthos tatic standing] Respiratory Rate 16 23 20 Blood Pressure Blood Pressure [Le ft Arm] Blood Pressure [Ri ght Arm] Blood Pressure [Ri ght Upper Arm] Blood Pressure [or thostatic lying Ri ght Arm] Blood Pressure [or thostatic sitting] Blood Pressure [or thostatic standing ] Pulse Oximetry 89 Oxygen Delivery Ms thod 02/18/25 16:45 02/18/25 16:47 02/18/25 16:53 Temperature Pulse Rate 83 87 Pulse Rate [Pulse Oximeter] Pulse Rate [orthos tatic lying] Pulse Rate [orthos tatic sitting] Pulse Rate [orthos tatic standing] Respiratory Rate 22 14 20 Blood Pressure 196/121 H 195/84 H Blood Pressure [Le ft Arm] Blood Pressure [Ri ght Arm] Blood Pressure [Ri ght Upper Arm] Blood Pressure [or thostatic lying Ri ght Arm] Blood Pressure [or thostatic sitting] Blood Pressure [or thostatic standing ] Pulse Oximetry 95 [facility] 17:00 02/18/25 17:02 02/18/25 17:15 Temperature Pulse Rate 84 84 93 Pulse Rate [Pulse Oximeter] Pulse Rate [orthos tatic lying] Pulse Rate [orthos tatic sitting] Pulse Rate [orthos tatic standing] Respiratory Rate 28 H 23 11 L Blood Pressure 206/78 H Blood Pressure [Le ft Arm] Blood Pressure [Ri ght Arm] Blood Pressure [Ri ght Upper Arm] Blood Pressure [or thostatic lying Ri ght Arm] Blood Pressure [or thostatic sitting] Blood Pressure [or thostatic standing ] Pulse Oximetry 97 98 93 [facility] 02/[facility]/25 17:17 02/18/25 17:25 02/18/25 17:30 Temperature Pulse Rate 90 97 91 Pulse Rate [Pulse Oximeter] Pulse Rate [orthos tatic lying] Pulse Rate [orthos tatic sitting] Pulse Rate [orthos tatic standing] Respiratory Rate 19 17 18 Blood Pressure 191/80 H 188/80 H Blood Pressure [Le ft Arm] Blood Pressure [Ri ght Arm] Blood Pressure [Ri ght Upper Arm] Blood Pressure [or thostatic lying Ri ght Arm] Blood Pressure [or thostatic sitting] Blood Pressure [or thostatic standing ] Pulse Oximetry 97 93 94 Oxygen Delivery Ms thod 02/18/25 17:32 02/18/25 17:50 02/18/25 17:50 Temperature 100.8 F H Pulse Rate 92 Pulse Rate [Pulse Oximeter] 91 Pulse Rate [orthos tatic lying] Pulse Rate [orthos tatic sitting] Pulse Rate [orthos tatic standing] Respiratory Rate 20 20 20 Blood Pressure 193/77 H Blood Pressure [Le ft Arm] 178/70 H Blood Pressure [Ri ght Arm] Blood Pressure [Ri ght Upper Arm] Blood Pressure [or thostatic lying Ri ght Arm] Blood Pressure [or thostatic sitting] Blood Pressure [or thostatic standing ] Pulse Oximetry 93 96 96 Oxygen Delivery Me thod Room Air Room Air 02/18/25 18:21 02/18/25 19:55 02/18/25 21:36 Temperature 99.5 F Pulse Rate Pulse Rate [Pulse Oximeter] 96 Pulse Rate [orthos tatic lying] Pulse Rate [orthos tatic sitting] Pulse Rate [orthos tatic standing] Respiratory Rate 16 Blood Pressure 149/50 H Blood Pressure [Le ft Arm] Blood Pressure [Ri ght Arm] 149/50 H 141/52 H Blood Pressure [Ri ght Upper Arm] Blood Pressure [or thostatic lying Ri ght Arm] Blood Pressure [or thostatic sitting] Blood Pressure [or thostatic standing ] Pulse Oximetry 96 Oxygen Delivery Me thod Room Air 02/18/25 21:42 02/18/25 22:02 02/18/25 22:11 Temperature Pulse Rate Pulse Rate [Pulse Oximeter] Pulse Rate [orthos tatic lying] 90 Pulse Rate [orthos tatic sitting] 91 Pulse Rate [orthos tatic standing] 91 Respiratory Rate Blood Pressure 151/56 H 155/57 H Blood Pressure [Le ft Arm] Blood Pressure [Ri ght Arm] Blood Pressure [Ri ght Upper Arm] Blood Pressure [or thostatic lying Ri ght Arm] 170/75 H Blood Pressure [or thostatic sitting] 152/61 H Blood Pressure [or thostatic standing ] 106/50 L Pulse Oximetry Oxygen Delivery Me thod 02/18/25 22:14 02/18/25 22:17 02/18/25 22:20 Temperature 98.4 F Pulse Rate Pulse Rate [Pulse Oximeter] 86 Pulse Rate [orthos tatic lying] Pulse Rate [orthos tatic sitting] Pulse Rate [orthos tatic standing] Respiratory Rate 16 Blood Pressure 170/75 H 152/61 H Blood Pressure [Le ft Arm] Blood Pressure [Ri ght Arm] Blood Pressure [Ri ght Upper Arm] Blood Pressure [or thostatic lying Ri ght Arm] Blood Pressure [or thostatic sitting] Blood Pressure [or thostatic standing ] Pulse Oximetry 96 Oxygen Delivery Me thod Room Air 02/18/25 22:20 02/18/25 22:42 02/18/25 23:00 Temperature Pulse Rate 89 Pulse Rate [Pulse Oximeter] Pulse Rate [orthos tatic lying] Pulse Rate [orthos tatic sitting] Pulse Rate [orthos tatic standing] Respiratory Rate Blood Pressure 106/50 L 156/63 H Blood Pressure [Le ft Arm] Blood Pressure [Ri ght Arm] Blood Pressure [Ri ght Upper Arm] Blood Pressure [or thostatic lying Ri ght Arm] Blood Pressure [or thostatic sitting] Blood Pressure [or thostatic standing ] Pulse Oximetry Oxygen Delivery Me thod 02/18/25 23:00 02/18/25 23:16 02/19/25 02:52 Temperature 99.0 F 100.1 F H Pulse Rate Pulse Rate [Pulse Oximeter] 96 84 Pulse Rate [orthos tatic lying] Pulse Rate [orthos tatic sitting] Pulse Rate [orthos tatic standing] Respiratory Rate 20 14 Blood Pressure 152/69 H Blood Pressure [Le ft Arm] 152/69 H Blood Pressure [Ri ght Arm] 148/51 H Blood Pressure [Ri ght Upper Arm] Blood Pressure [or thostatic lying Ri ght Arm] Blood Pressure [or thostatic sitting] Blood Pressure [or thostatic standing ] Pulse Oximetry 95 93 Oxygen Delivery Me thod Room Air Room Air 02/19/25 08:00 02/19/25 08:33 Temperature 99.1 F Pulse Rate 79 Pulse Rate [Pulse Oximeter] 83 Pulse Rate [orthos tatic lying] Pulse Rate [orthos tatic sitting] Pulse Rate [orthos tatic standing] Respiratory Rate 20 Blood Pressure Blood Pressure [Le ft Arm] Blood Pressure [Ri ght Arm] 133/65 Blood Pressure [Ri ght Upper Arm] Blood Pressure [or thostatic lying Ri ght Arm] Blood Pressure [or thostatic sitting] Blood Pressure [or thostatic standing ] Pulse Oximetry 95 Oxygen Delivery Me thod Room Air Labs Labs: Laboratory Results - last 24 hr 02/18/25 02/18/25 02/18/25 15:57 16:00 18:21 WBC 18.01 H RBC 3.87 L Hgb 10.3 L Hct 31.7 L MCV 82 MCH 27 MCHC 33 RDW Coeff of Rodriguez 14.2 Plt Count 492 H Neut % (Auto) 78.0 H Lymph % (Auto) 10.8 L [place] % (Auto) 8.8 Eos % (Auto) 1.1 Baso % (Auto) 0.2 Neut # (Auto) 14.00 H Lymph # (Auto) 1.90 [place] # (Auto) 1.60 H Eos # (Auto) 0.20 Baso # (Auto) 0.00 Abs Immat Gran (auto) 0.20 Imm/Tot Granulo (auto) 1.1 Diff Slide Review Sodium 136 Potassium 4.4 Chloride 103 Carbon Dioxide 25 Anion Gap 8 BUN 13 Creatinine 0.8 Estimated Creat Clear 74.71 Estimated GFR 93 Glucose 105 Lactate 2.2 H Calcium 9.1 C-Reactive Protein Urine Color Yellow Urine Appearance Clear Urine pH 7.0 Ur Specific Sharon 1.015 Urine Protein Trace A Urine Glucose (UA) Negative Urine Ketones Negative Urine Blood 2+ A Urine Nitrite Negative Urine Bilirubin Negative Urine Urobilinogen 0.2 Ur Leukocyte Esterase 2+ A Urine RBC 5-10 A Urine WBC 10-25 A Ur Squamous Epith Cells Few Urine Bacteria Moderate A Lab Acknowledgement New Spec Needed A 02/18/25 02/19/25 18:33 06:41 WBC 32.48 H* RBC 3.16 L Hgb 8.5 L Hct 26.2 L MCV 83 MCH 27 MCHC 32 RDW Coeff of Rodriguez Plt Count 437 Neut % (Auto) Lymph % (Auto) Rank[place] % (Auto) Eos % (Auto) Baso % (Auto) Neut # (Auto) Lymph # (Auto) Rank[place] # (Auto) Eos # (Auto) Baso # (Auto) Abs Immat Gran (auto) Imm/Tot Granulo (auto) Diff Slide Review Acceptable Review Sodium 133 L Potassium 3.6 Chloride 103 Carbon Dioxide 24 Anion Gap 6 L BUN 13 Creatinine 1.0 Estimated Creat Clear 76.49 Estimated GFR 79 Glucose 125 H Lactate 1.6 Calcium 8.4 C-Reactive Protein 11.7 H Urine Color Urine Appearance Urine pH Ur Specific Sharon Urine Protein Urine Glucose (UA) Urine Ketones Urine Blood Urine Nitrite Urine Bilirubin Urine Urobilinogen Ur Leukocyte Esterase Urine RBC Urine WBC Ur Squamous Epith Cells Urine Bacteria Lab Acknowledgement
--- NOTE | 2025-02-19 10:22 | PC.PHA ---
Vancomycin consult note: Indication for vancomycin: [sepsis] Age: [75] Height: [188 cm] Weight: [83 kg] Most recent SCr: [1] Estimated CrCL: [75] Recommended dose and frequency: [2 gm iv q24 hr] to obtain an estimated AUC/KLAUS of 400-600 mcg*hr/m (454) Additional comment: [also on meropenem]
--- NOTE | 2025-02-19 13:11 | PC.NURSE ---
Shift Summary: Patient pleasant and cooperative. Up with SBA, walking in halls, needs assist with IV pole. Vitals stable and WNL. Lower abdominal pain, denies need for medication. Encouraged to ambulate to bathroom to void. Patient stated no one is able to bring home medication, MD and pharmacy updated and diltiazem order changed see OCT.
[2025-02-19 14:34] LABS: Hematocrit 23.6 % (37.0-53.0); Immature Granulocytes Pct Auto 0.8 %; Lymphocytes Absolute Auto 2.40 K/uL (0.90-2.90); Mean Corpuscular HGB Conc 33 gm/dL (32-36); Mean Corpuscular Hemoglobin 27 pg (26-34); Mean Corpuscular Volume 83 fL (80-100); RDW Coefficient of Variation % 14.4 % (11.5-15.5); Red Blood Count 2.86 m/uL (4.30-5.90)
[2025-02-19 16:04] LABS: Immature Granulocytes Abs Auto 0.20 K/uL (0.00-0.30); White Blood Count* 29.07 K/uL (4.50-11.00)
[2025-02-19 16:05] LABS: Hemoglobin* 7.7 gm/dL (13.5-17.5); Slide Review Reflex Yes
[2025-02-19] MEDS: VANCOMYCIN 2 GM/400 ML 2 GM/400 ML PIGGYBACK IVPB (17:31)
[2025-02-19] MEDS: ATORVASTATIN CALCIUM 40 MG TABLET PO (21:21)
[2025-02-19 21:54] LABS: Slide Review Acceptable Review (Acceptable)
[2025-02-19 22:41] LABS: Hemoglobin* 8.4 gm/dL (13.5-17.5)
--- NOTE | 2025-02-19 23:07 | PC.NURSE ---
The pt has been alert and oriented ; denied chest pain and short of breath; Spo2 has been in the 90s in RA. No fever noted; tolerated IV antibiotics without any issues.? ?The pt was c/o of minimal abdominal pain; and tenderness up on palpating his stomach; the pt refused nutritional supplement stating I don't have an appetite ?
[2025-02-20] VITALS (9 sets, daily range): BP systolic 148–178; BP diastolic 66–91; PULSE 60–75; RESP 16–20; TEMP 36.5–36.8; O2SAT 96–99
[2025-02-20] MEDS: MEROPENEM 1 GM in 0.9 % SODIUM CHLORIDE Mini-bag 100 ML IVPB ×2 (00:30→09:07)
[2025-02-20] MEDS: SODIUM CHLORIDE 0.9 % (FLUSH) 10 ML SYRINGE 5 ML IVF ×4 (00:31→22:42)
--- NOTE | 2025-02-20 06:59 | PC.NURSE ---
pleasant and cooperative. Indep in room. VSS. Afebrile. Parole Or Probation Officer held 0400 dose of Dilt d/t HR 61, pt agreeable to hold dose & understands his home Dilt is Extended Release.
--- NOTE | 2025-02-20 07:05 | P.IMPN_ITS ---
Assessment and Plan Assessment and plan (1) Sepsis: Problem comment: - suspect UTI as source - TMax 100.8? on arrival 02/18/25 - WBC 18.01 with left shift, neutrophils 78, lactate 2.2 in ED improved to 1.6 on admission - Recent, recurrent hospitalizations, surgical interventions in January and February as noted below - Meropenem and Vancomycin (02/19) - 02/19: WBC increased to 32, improved to 20 on 02/20 Status: Acute (2) Epididymitis, right: Problem comment: - noted on ultrasound 02/20 - Ceftriaxone 02/20, will start oral Doxycycline 02/21 Status: Acute (3) UTI (urinary tract infection): Problem comment: - culture + for Enterobacter, antibiotics narrowed to Ceftriaxone on 02/20/25 Status: Acute (4) BPH (benign prostatic hyperplasia): Problem comment: - Cystoscopy and TURP 01/26/2025, [facility], Dr. Pedraza - Cystoscopy with clot evacuation and fulguration 02/13/2025, [facility], Dr. Holbrook Status: Acute (5) ABLA (acute blood loss anemia): Problem comment: - admission Hgb 10.3 --> jamison of 7.7 on 02/19, currently 8.1 (did not require transfusion) - presumably persistent blood loss from recent cystoscopy, we have been holding Apixaban since admission' - no evidence of current/persistent bleeding, VSS Status: Acute (6) Gastric mass: Problem comment: - CT on 02/18/25: Irregularly lobulated gastric mass arising from the anterior gastric antrum measuring 4.1 x 3.9cm, suspicious for underlying malignancy - patient is aware; recommend GI consultation and further evaluation with endoscopy as an outpatient Status: Acute (7) Atrial fibrillation: Problem comment: - paroxysmal, currently in sinus rhythm - Continue diltiazem (using IR 30mg Q6H as family unable to bring in his Dilt ER on 02/19/25) - Apixaban is on hold until 02/21/2025 (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 He was noted to have a fever, WBC of 18 with left shift, lactate of 2.2. Empiric IV vancomycin and meropenem initiated. CT on admission revealed bladder wall thickening consistent with cystitis; also noted a suspicious mass in the anterior gastric antrum which patient is aware of. Recent weight loss, seeing Dietitian here. Since stay, Hgb has dropped from 10.3--> jamison of 7.7 on 02/19. Has not required blood products, this morning his Hgb is 8.1 WBC peaked at 32 on 02/19, this morning it is 20 Urine culture has grown Enterobacter, antibiotic narrowed from Vanco/Meropenem to Ceftriaxone on 02/20. NGTD on Blood Cultures. This morning, Suresh has testicular pain (R>L), no other concerns. Ultrasound obtained and + for epididymitis Exam Narrative: Exam Narrative: GEN: Alert HEENT: Normal external ears, EOMIs bilaterally, no scleral icterus CV: RRR, No concerning murmurs R: Breathing comfortably, no wheezing : Scrotum edematous, R>L. + ttp Ext: wwp, no concerning edema Skin: No concerning skin lesions or rashes on exposed skin Neuro: Nonfocal Psych: Appropriate Const: Vital Signs, click to edit/add: Vital Signs - 24 hr 02/19/25 08:00 02/19/25 08:33 02/19/25 11:18 Temperature 99.1 F 98.8 F Pulse Rate 79 Pulse Rate [Pulse Oximeter] 83 68 Respiratory Rate 20 16 Blood Pressure [Ri ght Arm] 133/65 137/64 Pulse Oximetry 95 96 Oxygen Delivery Me thod Room Air Room Air 02/19/25 16:00 02/19/25 16:00 02/19/25 16:00 Temperature 98.8 F Pulse Rate 79 Pulse Rate [Pulse Oximeter] 79 79 Respiratory Rate 16 16 Blood Pressure [Ri ght Arm] 149/64 H Pulse Oximetry 96 Oxygen Delivery Me thod Room Air 02/19/25 19:00 02/19/25 23:00 02/19/25 23:00 Temperature 99.2 F 98.7 F Pulse Rate 62 Pulse Rate [Pulse Oximeter] 73 75 Respiratory Rate 16 16 Blood Pressure [Ri ght Arm] 140/60 H 120/77 Pulse Oximetry 95 95 Oxygen Delivery Me thod Room Air Room Air 02/20/25 04:09 Temperature 97.8 F Pulse Rate Pulse Rate [Pulse Oximeter] 61 Respiratory Rate 16 Blood Pressure [Ri ght Arm] 149/66 H Pulse Oximetry 96 Oxygen Delivery Me thod Room Air Labs Labs: Laboratory Results - last 24 hr 02/19/25 02/19/25 02/19/25 06:41 14:21 22:08 WBC 32.48 H* 29.07 H* RBC 3.16 L 2.86 L Hgb 8.5 L 7.7 L* 8.4 L Hct 26.2 L 23.6 L MCV 83 83 MCH 27 27 MCHC 32 33 RDW Coeff of Rodriguez 14.4 Plt Count 437 366 Neut % (Auto) 83.7 H Lymph % (Auto) 8.3 L [place] % (Auto) 6.9 Eos % (Auto) 0.2 Baso % (Auto) 0.1 Neut # (Auto) 24.30 H Lymph # (Auto) 2.40 [place] # (Auto) 2.00 H Eos # (Auto) 0.10 Baso # (Auto) 0.00 Abs Immat Gran (auto) 0.20 Imm/Tot Granulo (auto) 0.8 Diff Slide Review Acceptable Review Acceptable Review Sodium 133 L Potassium 3.6 Chloride 103 Carbon Dioxide 24 Anion Gap 6 L BUN 13 Creatinine 1.0 Estimated Creat Clear 76.49 Estimated GFR 79 Glucose 125 H Calcium 8.4 C-Reactive Protein 11.7 H
--- NOTE | 2025-02-20 07:35 | CRLHL7_ITS ---
For Patients: As a result of the Century Cures Act, medical imaging exams and procedure reports are released immediately into your electronic medical record. You may view this report before your referring provider. If you have questions, please contact your health care provider. Indication: Right-sided pain and swelling. Technique: Sonography of the scrotum and its contents was performed. Imaging was acquired as grayscale, color Doppler and spectral Doppler. Comparison: October 25, 2024 Findings: Right testis measures 5.6 x 3.4 x 3.6 centimeters. No focal mass. Doppler flow is present. There is a thickened right scrotal wall. Small complex right hydrocele. Incidental small appendix testis measuring 6 x 5 x 5 millimeters. Prominent and edematous right spermatic cord and epididymis with hypervascularity. Hypervascular right testis. Left testis measures 5.1 x 3.2 x 2.9 centimeters. No focal mass. Doppler flow is present and appears normal. Scrotal wall thickness is normal. Epididymis is remarkable for a 7 millimeter left epididymal head cyst. No hydrocele. No varicocele. Impression: 1. There are findings of right-sided epididymitis and right orchitis. No evidence of torsion. Right scrotal skin thickening. Small complex right hydrocele. 2. No acute or significant appearing findings on the left. 3. Nonacute appearing findings as above 4. The patient had a similar presentation October 25, 2024 Dictated by Brandt Calvillo MD @ 02/20/2025 9:32:25 AM (Electronically Signed)
[2025-02-20 07:39] LABS: Chloride* 106 mmol/L (96-114); Potassium* 3.6 mmol/L (3.6-5.1); Sodium* 136 mmol/L (135-149)
[2025-02-20 07:42] LABS: Anion Gap 4 mEq/L (7-15); Blood Urea Nitrogen* 13 mg/dL (7-30); Calcium* 8.5 mg/dL (8.4-10.6); Carbon Dioxide* 26 mmol/L (20-32); Creatinine* 0.8 mg/dL (0.5-1.5); Est. Creatinine Clearance* 76.40; Estimated Glomerular Filt Rate 93 ml/min; Glucose* 58 mg/dL (60-115)
[2025-02-20 08:35] LABS: Hematocrit 25.8 % (37.0-53.0); Hemoglobin* 8.1 gm/dL (13.5-17.5); Immature Granulocytes Pct Auto 0.3 %; Mean Corpuscular HGB Conc 31 gm/dL (32-36); Mean Corpuscular Hemoglobin 26 pg (26-34); Mean Corpuscular Volume 84 fL (80-100); RDW Coefficient of Variation % 14.4 % (11.5-15.5); Red Blood Count 3.08 m/uL (4.30-5.90); White Blood Count* 20.29 K/uL (4.50-11.00)
[2025-02-20 08:46] LABS: Immature Granulocytes Abs Auto 0.10 K/uL (0.00-0.30); Lymphocytes Absolute Auto 1.70 K/uL (0.90-2.90); Slide Review Reflex No
[2025-02-20] MEDS: DOCUSATE SODIUM 100 MG CAPSULE PO ×2 (09:07→22:40)
[2025-02-20] MEDS: cefTRIAXone 1 GM in 0.9 % SODIUM CHLORIDE Mini-bag 100 ML IVPB (14:19)
[2025-02-20] MEDS: ACETAMINOPHEN 325 MG TABLET 1000 MG PO (14:31)
[2025-02-20] MEDS: NICOTINE 2 MG GUM BUCCAL ×2 (19:49→22:44)
--- NOTE | 2025-02-20 19:51 | PC.NURSE ---
End of shift [id number] - Pt alert, oriented, cooperative and independent. Observed to ambulate outside of room and tolerating RA and regular diet/fluids. Reported pain in testicles at start of shift, MD alerted and orders given. Medication given per MAR to increase pt comfort, pt verbalized tolerating pain. Denies SOB, n/v, dizziness. Afebrile and VSS during shift. Appears to be resting at end of shift with call light within reach.
[2025-02-20] MEDS: ATORVASTATIN CALCIUM 40 MG TABLET PO (22:40)
[2025-02-20] MEDS: INSULIN ASPART 100 UNIT/ML SUBCUT (22:42)
[2025-02-21] MEDS: ACETAMINOPHEN 325 MG TABLET 1000 MG PO (00:36)
[2025-02-21 03:00] VITALS: BP 147/77; PULSE 55; RESP 16; TEMP 36.4; O2SAT 96
--- NOTE | 2025-02-21 06:54 | PC.NURSE ---
Pt pleasant, alert and oriented.?VSS, though hypertensive. At 0400 pt HR was in the high 40s, diltiazem held.?Tele reads NSR with 1st degree AV. Pt stated right testicular pain rated 5/10, prn Tylenol given. Pt independent in the room. Pt in bed, appears to be resting, call light within reach.?
[2025-02-21 07:00] VITALS: BP 172/77; PULSE 69; PULSE 75; RESP 18; TEMP 36.5; O2SAT 97
[2025-02-21 07:02] LABS: Chloride* 106 mmol/L (96-114); Sodium* 138 mmol/L (135-149)
[2025-02-21 07:03] LABS: Potassium* 3.5 mmol/L (3.6-5.1)
[2025-02-21 07:06] LABS: Anion Gap 5 mEq/L (7-15); Blood Urea Nitrogen* 11 mg/dL (7-30); Calcium* 8.6 mg/dL (8.4-10.6); Carbon Dioxide* 27 mmol/L (20-32); Creatinine* 0.7 mg/dL (0.5-1.5); Est. Creatinine Clearance* 76.49; Estimated Glomerular Filt Rate 97 ml/min; Glucose* 103 mg/dL (60-115)
[2025-02-21 07:32] LABS: Hematocrit 26.0 % (37.0-53.0); Hemoglobin* 8.3 gm/dL (13.5-17.5); Immature Granulocytes Abs Auto 0.12 K/uL (0.00-0.30); Immature Granulocytes Pct Auto 1.2 %; Mean Corpuscular HGB Conc 32 gm/dL (32-36); Mean Corpuscular Hemoglobin 26 pg (26-34); Mean Corpuscular Volume 83 fL (80-100); RDW Coefficient of Variation % 14.4 % (11.5-15.5); Red Blood Count 3.14 m/uL (4.30-5.90); White Blood Count* 10.35 K/uL (4.50-11.00)
[2025-02-21 07:36] LABS: Lymphocytes Absolute Auto 1.90 K/uL (0.90-2.90); Slide Review Reflex No
[2025-02-21] MEDS: NICOTINE 2 MG GUM BUCCAL ×2 (09:47→13:45)
[2025-02-21] MEDS: SODIUM CHLORIDE 0.9 % (FLUSH) 10 ML SYRINGE 5 ML IVF (10:48)
[2025-02-21] MEDS: INSULIN ASPART 100 UNIT/ML SUBCUT (11:29)
[2025-02-21] MEDS: cefTRIAXone 1 GM in 0.9 % SODIUM CHLORIDE Mini-bag 100 ML IVPB (12:53)
--- NOTE | 2025-02-21 13:48 | P.DS_ITS ---
DS: Providers Provider Date Seen: 02/21/25 Date of admission: 02/18/25 18:21 Primary care physician: Santi Juarez MD Admitting Clinician: Gris Simon MD Consults: 02/18/25 18:21 Consult to Occupational Therapy [CONS] Routine Comment: Reason(s) for OT Consult:: Evaluate and Treat Any Restrictions?:: No Restrictions Consult to Physical Therapy [CONS] Routine Comment: Reason(s) for PT Consult:: Evaluate and Treat Any Restrictions?:: No Restrictions Consult to Rubber Goods Inspector [CONS] Routine Comment: Reason for Consult:: Social Service Consult 02/19/25 12:21 Consult to Nutrition [CONS] Routine Comment: Reason for consult:: Weight Loss Attending Physician on discharge: Asha Epstein MD Date of Discharge: 02/21/25 DS: Diagnosis Discharge Diagnosis (1) Sepsis: Status: Acute Problem details: - 2/2 UTI; TMax 100.8? on arrival 02/18/25 - WBC 18.01 with left shift, neutrophils 78, lactate 2.2 in ED, improved to 1.6 on admission - Recent, recurrent hospitalizations, surgical interventions in January and February as noted below - WBC increased to 32 during stay, decreased to 10 upon discharge - Meropenem and Vancomycin (02/19), narrowed to Ceftriaxone on 02/20, discharging on Levaquin (2) Epididymitis, right: Status: Acute Problem details: - noted on ultrasound 02/20 - Ceftriaxone 02/20, discharging on Levaquin (3) UTI (urinary tract infection): Status: Acute Problem details: - culture + for Enterobacter, antibiotics narrowed to Ceftriaxone on 02/20/25 (4) BPH (benign prostatic hyperplasia): Status: Acute Problem details: - [facility] (5) ABLA (acute blood loss anemia): Status: Acute Problem details: - admission Hgb 10.3 --> jamison of 7.7 on 02/19, up to 8.3 on discharge (did not require transfusion) - presumably persistent blood loss from recent cystoscopy, held Apixaban during stay - no evidence of current/persistent bleeding, VSS (6) Gastric mass: Status: Acute Problem details: - CT on 02/18/25: Irregularly lobulated gastric mass arising from the anterior gastric antrum measuring 4.1 x 3.9cm, suspicious for underlying malignancy - patient is aware; recommend GI consultation and further evaluation with endoscopy as an outpatient (7) Atrial fibrillation: Status: Acute Problem details: - paroxysmal, currently in sinus rhythm - Continue diltiazem (using IR 30mg Q6H as family unable to bring in his [facility] on 02/19/25) - Apixaban is on hold until 02/27/2025 (per Urology given recent cystoscopy at [facility]), will address with PCP f/u to see if this should be held longer - clinical research monitor stable with SR during stay (8) Hypertension: Status: Acute Problem details: - Continue lisinopril (9) Hyperlipidemia: Status: Chronic Problem details: - continue statin (10) Diabetes mellitus: Status: Acute Problem details: - Most recent A1c 7.1 - Continue glipizide, hold metformin on admission - accuchecks and SSI DS: Summary Hospital Course Hospital Course: Suresh was admitted to the hospital on 02/18 for sepsis in the setting of UTI, recent TURP (01/26/25) and cystoscopy with clot evacuation (02/13/25). He was noted to have a fever, WBC of 18 with left shift, lactate of 2.2. Empiric IV vancomycin and meropenem initiated, de-escalated to Ceftriaxone on 02/19 after urine culture resulted for Enterobacter. CT on admission revealed bladder wall thickening consistent with cystitis; also noted a suspicious mass in the anterior gastric antrum which patient is aware of. During stay, noted R testicular pain and edema; ultrasound c/w epididymitis (treated with Ceftriaxone). No growth on blood cultures during stay. Eliquis was held given recent procedures (had been on hold with planned resumption date of 02/27/2025) and decreasing hemoglobin, presumably acute blood loss anemia from recent procedures. Hemoglobin jamison of 7.7, came up without intervention and did not require blood products. Patient remained hemodynamically stable and appropriate for discharge home on 02/21/2025 with close PCP follow-up to discuss: - follow-up hemoglobin - date to resume Eliquis - outpatient EGD to evaluate gastric mass Status at Discharge Functional status at discharge: independent ambulation Time Spent with Patient Time attestation: Total time spent providing and/or coordinating discharge services: Time spent: Greater than 30 minutes Specific discharge activities: Medication reconciliation, patient education Exam Narrative: Exam Narrative: GEN: Alert and oriented, nontoxic HEENT: EOMIs bilaterally, no scleral icterus CV: RRR, No concerning murmurs R: LCTA bilaterally without wheezing Ext: wwp, no concerning edema Skin: No concerning skin lesions or rashes on exposed skin Neuro: Nonfocal Psych: Appropriate Const: Vital Signs, click to edit/add: Vital Signs - 24 hr 02/20/25 15:00 02/20/25 15:49 02/20/25 19:54 Temperature 98.2 F 97.7 F Pulse Rate 67 Pulse Rate [Pulse Oximeter] 66 71 Respiratory Rate 18 16 Blood Pressure [Ri ght Arm] 175/79 H 167/84 H Pulse Oximetry 96 97 Oxygen Delivery Me thod Room Air Room Air 02/20/25 23:00 02/20/25 23:00 02/21/25 03:00 Temperature 97.6 F Pulse Rate 60 Pulse Rate [Pulse Oximeter] 71 55 L Respiratory Rate 16 16 Blood Pressure [Ri ght Arm] 147/77 H Pulse Oximetry 96 Oxygen Delivery Me thod Room Air 02/21/25 07:00 02/21/25 07:00 Temperature 97.7 F Pulse Rate 69 Pulse Rate [Pulse Oximeter] 75 Respiratory Rate 18 Blood Pressure [Ri ght Arm] 172/77 H Pulse Oximetry 97 Oxygen Delivery Me thod Room Air DS: Data Data Completed and Pending Completed studies during hospitalization: Procedures Change Drainage Device in Bladder, External Approach (10/04/24) Irrigation of Indwelling Device using Irrigating Substance, External Approach (10/04/24) Labs on day of discharge: Labs from last 24 hours 02/21/25 02/21/25 07:25 05:45 WBC 10.35 RBC 3.14 L Hgb 8.3 L Hct 26.0 L MCV 83 MCH 26 MCHC 32 RDW Coeff of Rodriguez 14.4 Plt Count 383 Neut % (Auto) 69.6 Lymph % (Auto) 18.6 L [place] % (Auto) 6.9 Eos % (Auto) 3.3 Baso % (Auto) 0.4 Neut # (Auto) 7.22 H Lymph # (Auto) 1.90 [place] # (Auto) 0.70 Eos # (Auto) 0.34 Baso # (Auto) 0.04 Abs Immat Gran (auto) 0.12 Imm/Tot Granulo (auto) 1.2 Sodium 138 Potassium 3.5 L Chloride 106 Carbon Dioxide 27 Anion Gap 5 L BUN 11 Creatinine 0.7 Estimated Creat Clear 76.49 Estimated GFR 97 Glucose 103 Calcium 8.6 Lab Acknowledgement Test Added Preliminary micro results at discharge 02/18/25 16:37 Blood Culture - Preliminary Blood NO GROWTH AFTER 48 HOURS 02/18/25 16:24 Blood Culture - Preliminary Blood NO GROWTH AFTER 48 HOURS Discharge Plan Discharge Disposition: Home, Self-Care Date of Admission: 02/18/25 18:21 Attending Provider on Discharge: Asha Epstein Primary Care Provider: Santi Juarez Condition: Improved Anticipated Discharge Date/Time: 02/21/25 13:09 Discharge Medications: New levofloxacin 250 mg tablet 250 mg PO DAILY 7 Days Qty: 7 0RF Continued epinephrine 0.3 mg/0.3 mL auto-injector 0.3 ml IM .As Needed as needed PRN (Reason: anaphylaxis) Qty: 2 0RF atorvastatin 40 mg tablet 40 mg PO HS Qty: 90 3RF diltiazem HCl 60 mg capsule,extended release 12 hr 60 mg PO BID Qty: 60 5RF docusate sodium 100 mg capsule 100 mg PO BID glipizide 10 mg tablet extended release 24hr 10 mg PO QPM Rx Instructions: TAKES BEFORE SUPPER lisinopril 10 mg tablet 10 mg PO QAM metformin 500 mg tablet extended release 24 hr 1,000 mg PO QAM Held Eliquis 5 mg tablet 5 mg PO BID Qty: 60 10RF Hold Instructions: continue to hold until f/u with Dr. Jaurez Patient Comments: February 27--hold and then restart Discharge Orders: Discharge Order (Routine); Ordered 02/21/25 Ordered By: Asha Epstein Patient Education: Levofloxacin (By mouth), Urinary Tract Infection in Men (DC) Additional Instructions: Continue to HOLD your Eliquis until you see Dr. Juarez to discuss further. Take the rest of your medications as previous. You have a mass in your stomach and will need to set up an EGD (Endoscopy) to further evaluate, Dr. Juarez can help with this. 7 more days of antibiotics for your UTI/testicular infection - these are at [facility] and you can pick them up and start them tomorrow (Saturday). Activity Level: Activity as Tolerated Discharge Diet: Regular Follow Up Appointments: Santi Juarez MD [Primary Care Provider, [facility]] Astrid Glez MD [Staff Physician, [facility]] - 02/26/25 3:30 pm Referral Note: [facility] for hospital follow-up. Primary care wasn't available. Forms: [employer] Mobile [employer] Info Instructions
[2025-02-21 13:50] VITALS: BP 180/85; PULSE 67; RESP 18; TEMP 36.5; O2SAT 96
--- NOTE | 2025-02-21 16:45 | PC.NURSE ---
Discharge - Pt alert, oriented,cooperative. Up independently. Denied pain, SOB, n/v. Pt experienced episode of tachycardia while ambulating in halls up to 160 bpm. Pt asymptomatic and MD alerted. increased HR not recreated with additional ambulation. D/c verbalized understanding of education, IV x 2 removed with catheter intact. Pt transported self to home via personal vehicle at approximately 1440.
== END 2025-02-21 16:40 | disposition home or self-care (01) | DRG 862 ==
LOC: ED 17:50 → MEDSURG 17:52
PROVIDERS: Family Medicine; Admitting Provider Physician Assistant; Emergency Provider Emergency Medicine; PCP Family Medicine; Visit Provider Family Medicine
DX: T81.44XA Sepsis following a procedure, initial encounter (principal); A41.9 Sepsis, unspecified organism; N30.00 Acute cystitis without hematuria; D62 Acute posthemorrhagic anemia; I48.0 Paroxysmal atrial fibrillation; Z79.01 Long term (current) use of anticoagulants; D37.1 Neoplasm of uncertain behavior of stomach; N45.1 Epididymitis; B96.89 Other specified bacterial agents as the cause of diseases classified elsewhere; N40.1 Benign prostatic hyperplasia with lower urinary tract symptoms; R33.8 Other retention of urine; I10 Essential (primary) hypertension; E11.9 Type 2 diabetes mellitus without complications; Z79.84 Long term (current) use of oral hypoglycemic drugs; R63.4 Abnormal weight loss; Z68.23 Body mass index [BMI] 23.0-23.9, adult; Z85.51 Personal history of malignant neoplasm of bladder; Z86.73 Personal history of transient ischemic attack (TIA), and cerebral infarction without residual deficits; E78.5 Hyperlipidemia, unspecified
CPT/HCPCS: 36415; 74177; 76870; 80048; 81001; 82962; 83605; 85018; 85025; 85027; 86140; 87040; 87086; 93976; 97161; 97165; 99283; 99285; A9270; J0696; J2185; J3375; J7030; J7050; J7120; Q9967

== ENCOUNTER 2025-02-26 15:38 | Outpatient (CLI) | payer MEDICARE, BC, SELFPAY | END 2025-02-26 15:39 | disposition home or self-care (01) | LOC: NFLDREF 15:39 | PROVIDERS: PCP Family Medicine; Visit Provider Family Medicine | DX: I10 Essential (primary) hypertension (principal); D64.9 Anemia, unspecified | CPT/HCPCS: 80048 ==

== ENCOUNTER 2025-05-03 10:56 | Emergency (ER) | payer MEDICARE, BC, SELFPAY ==
--- OUTSIDE RECORDS SUMMARY | 2025-05-03 10:58 | XMS_ITS | Clinical Summary ---
Author Organization [employer] [facility] Address [address] [place] [id number] Care Team Providers Care Foam Molder Name Role Phone Santi Juarez MD Primary Care Provider [phone] Allergies Active Allergy Reactions Criticality Noted Date [...] by mouth once daily. 02/14/20 21 Active dilTIAZem SR (CARDIZEM SR) 60 mg extended release 12 hr capsuleIndications: ventricular rate control in atrial fibrillation Take 60 mg by mouth two times daily. Active apixaban 5 mg tabletIndications:p revent thromboembolism in chronic atrial fibrillation Take 1 Tablet (5 mg) by mouth two times daily. 02/02/20 Active Active Problems Problem Noted Date Diagnosed [...] Description 02/13/2025 7:29 AM CDT Anesthesia Event [facility] [address] [place] [address] Tejinder Blackburn MD Nye, Hoyt William, MD 02/13/2025 7:20 AM CDT - 02/13/2025 8:37 AM CDT Surgery [facility] [address] [place] [place] [address] Dwaine Holbrook MD CYSTOSCOPY WITH CLOT EVACUATION AND FULGURATION 02/12/2025 Travel 02/10/2025 Travel 02/09/2025 11:13 PM CDT - 02/14/2025 10:30 AM CDT Hospital Encounter [facility] [address] [facility] [place] [address] s, U Hospitalist SvClement Barillas DO Mills, Elliot George, MD Kafle, Puskar, MBBS Mikhail, Walid Adel, MD HTN (hypertension) (Primary Dx) Discharge Disposition: Home Self Care from Last 3 Months Immunizations Immunization Administration [...] on file 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 Gender Identity Not on file Sexual [...] COVID-19 vaccine series (6 - Pfizer risk 2023- season) 2025 11/17/2024, 04/16/2024, 05/08/2022, Additional history exists Colonoscopy through age 77 04/03/202804/03, 04/03/2023, 04/01/2018, Additional history exists AAA screening age 65-74 Completed 12/09/2020 Hepatitis B series for 19+ Aged Out N o longer eligible based on patient's age to complete this topic Medical Devices Implanted Type Area Vice President Of Software Engineering Device Identifier Shelf Expiration Date Model / Serial / Lot Tissue Pericardium 0.8x8cm Xenosure - [id number] Implanted:Qty: 1 on 01/03/2021 by Warren Peña MD at [facility] Right: [facility]id [facility]tery [facility] [employer] 08/08/2026 0.8P8 / / [id number] Procedures Procedure Name Priority Date/Time Associated Diagnosis [...] 02/10/2025 1:21 AM CDT SCAN-CARDIAC STRIP 02/09/2025 12 :00 AM CDT COLONOSCOPY 04/03/2023 9:22 AM CDT US ABD AORTA SCREENING Routine 12/09/2020 9:28 AM CDT HTN (hypertension) from Last 3 Months or Most Recently Relevant to Health Maintenance Results * (ABNORMAL) GLUCOSE METER (02/14/2025 7:23 AM CDT) Only the most recent of22 resultswithin the time period is included. GLUCOSE METER 155(H) 65 - 100 mg/dL 02/14/2025 7:23 AM CDT [facility] Blood BLOOD SPECIMEN / Unknown 02/14/2025 7:23 AM CDT 02/14/2025 7:23 AM CDT us Vimal Gleason MD CHEMISTRY Final Resu lt [facility] SENDOUT INTERNAL ZIP [id number] [place] [address] * HCHG MASK PR5 (02/13/2025 7:45 AM CDT) Narrative Cindy Hernandez CRNA - 02/13/2025 7:45 AM CDT Cindy Hernandez [...] - 11.0 thou/cu mm 02/12/2025 9:26 AM [facility] RED BLOOD COUNT 3.45(L) 4.30 - 5.90 mil/cu mm 02/12/2025 9:26 AM [facility] HEMOGLOBIN 9.1(L) 13.5 - 17.5 g/dL 02/12/2025 9:26 AM [facility] HEMATOCRIT 28.2(L) 37.0 - 53.0 % 02/12/2025 9:26 AM [facility] MCV 82 80 - 100 fL 02/12/2025 9:26 AM [facility] MCH 26.4 26.0 - 34.0 pg 02/12/2025 9:26 AM [facility] MCHC 32.3 32.0 - 36.0 g/dL 02/12/2025 9:26 AM [facility] RDW 14.5 11.5 - 15.5 % 02/12/2025 9:26 AM [facility] PLATELET COUNT 303 140 - 440 thou/cu mm 02/12/2025 9:26 AM [facility] MPV 9.4 6.5 - 11.0 fL 02/12/2025 9:26 AM [facility] NRBC 0.0 % 02/12/2025 9:26 AM [facility] ABS NRBC 0.0 thou /cu mm 02/12/2025 9:26 AM [facility] % NEUT 73.4 % 02/12/2025 9:26 AM [facility] % LYMPH 16.4 % 02/12/2025 9:26 AM [facility] % MONO 7.5 % 02/12/2025 9:26 AM [facility] % EOS 1.9 % 02/12/2025 9:26 AM [facility] % BASO 0.5 % 02/12/2025 9:26 AM [facility] % IMMATURE GRAN (METAS,MYELOS,DE OS) 0.3 % 02/12/2025 9:26 AM [facility] ABSOLUTE NEUTROPHILS 7.3(H) 1.7 - 7.0 thou/cu mm 02/12/2025 9:26 AM CDT [facility] ABSOLUTE LYMPHOCYTES 1.6 0.9 - 2.9 thou/cu mm 02/12/2025 9:26 AM T [facility] ABSOLUTE MONOCYTES 0.8 <0.9 thou/cu mm 02/12/2025 9:26 AM CDT [facility] ABSOLUTE EOSINOPHILS 0.2 <0.5 thou/cu mm 02/12/2025 9:26 AM CDT [facility] ABSOLUTE BASOPHILS 0.1 <0.3 thou/cu mm 02/12/2025 9:26 AM T [facility] ABSOLUTE IMMATURE GRANULOCYTES(MET ,MYELOS,PROS) 0.0 <0.3 thou/cu mm 02/12/2025 9:26 AM T [facility] Blood BLOOD SPECIMEN / Unknown Venipuncture / Unknown 02/12/2025 9:18 AM CDT 02/12/2025 9:22 AM CDT us Vimal Gleason MD HEMATOLOGY Final Resu lt [facility] SENDOUT INTERNAL ZIP [id number] [place] [phone] * (ABNORMAL) BASIC METABOLIC PANEL (02/12/2025 9:18 AM CDT) Only the most recent of2 resultswithin the time period is included. SODIUM 139 136 - 145 mmol/L 02/12/2025 9:44 AM T [facility] POTASSIUM 4.4 3.5 - 5.1 mmol/L 02/12/2025 9:44 AM T [facility] CHLORIDE 106 98 - 107 mmol/L 02/12/2025 9:44 AM T [facility] CO2,TOTAL 24 22 - 29 mmol/L 02/12/2025 9:44 AM T [facility] ANION GAP 9 5 - 18 02/12/2025 9:44 AM T [facility] GLUCOSE 161(H) 70 - 99 mg/dL 02/12/2025 9:44 AM T [facility] CALCIUM 8.9 8.8 - 10.4 mg/dL 02/12/2025 9:44 AM T [facility] Comment: Reference ranges for this test were updated on 06/16/2024 to reflect our healthy population more accurately. Reference range changes are not retroactively applied to results, but previous results using the same methodology can be interpreted in the context of the new reference range. BUN 11 8 - 23 mg/dL 02/12/2025 9:44 AM T [facility] CREATININE 0.86 0.70 - 1.20 mg/dL 02/12/2025 9:44 AM [facility] BUN/CREAT RATIO 13 10 - 20 9:44 AM [facility] eGFR >90 >90 mL/min/1. 73m2 02/12/2025 9:44 AM [facility] Comment:As of 2021, eG [...] Vimal Gleason MD CHEMISTRY Final Resu lt [facility] SENDOUT INTERNAL ZIP [phone] [place] [id number] * US RENAL AND BLADDER COMPLETE (02/12/2025 [...] EXAM: US RENAL AND BLADDER COMPLETE LOCATION: [facility] MEDICAL IMAGING DATE: 02/12/2025 [...] EXAM: US RENAL AND BLADDER COMPLETE LOCATION: [facility] MEDICAL IMAGING DATE: 02/12/2025 [...] bladder. Etiology of bladder clot is notidentified. us Jony Barrett MD Final Resu lt * (ABNORMAL) URINALYSIS MICROSCOPIC (02/10/2025 1:06 PM CDT) RBC 6-10(A) 0-2, None Seen /HPF 02/10/2025 1:56 PM CDT [facility] WBC 51-100(A) 0-2, 3-5, None Seen /HPF 02/10/2025 1:56 PM CDT [facility] BACTERIA None Seen None Seen, Rare, Few Bacteria/ HPF 02/10/2025 1:56 PM CDT [facility] EPITHELIAL CELLS None Seen None Seen, Few Epi/HPF 02/10/2025 1:56 PM CDT [facility] HYALINE CASTS 0-2 0-2, 3-5 /LPF 02/10/2025 1:56 PM CDT [facility] Urine URINE SPECIMEN / Unknown Non-Blood / Unknown 02/10/2025 1:06 PM CDT 02/10/2025 1:10 PM CDT Bel OLIVEIRA URINE Final Res ult [facility] SENDOUT INTERNAL [facility] [address] [place] [phone] * (ABNORMAL) UA W/ SEDIMENT EXAM REFLEXED PER CRITERIA (02/10/2025 1:06 PM CDT) COLOR Brown(A) Yellow Color 02/10/2025 1:56 PM T [facility] CLARITY Slightly Cloudy(A) Clear Clarity 02/10/2025 1:56 PM T [facility] SPECIFIC GRAVITY,URINE <=1.005(A) 1.010, 1.015, 1.020, 1.025 02/10/2025 1:56 PM T [facility] PH,URINE 6.0 6.0, 7.0, 8.0, 5.5, 6.5, 7.5, 8.5 02/10/2025 1:56 PM T [facility] UROBILINOGEN, QUALITATIVE Normal Normal EU/dl 02/10/2025 1:56 PM T [facility] PROTEIN, URINE 30(A) Negative mg/dL 02/10/2025 1:56 PM T [facility] GLUCOSE, URINE Negative Negative mg/dL 02/10/2025 1:56 PM T [facility] KETONES,URINE Negative Negative mg/dL 02/10/2025 1:56 PM CDT [facility] BILIRUBIN,URI NE Negative Negative 02/10/2025 1:56 PM CDT [facility] OCCULT BLOOD,URINE Large(A) Negative 02/10/2025 1:56 PM CDT [facility] NITRITE Negative Negative 02/10/2025 1:56 PM CDT [facility] LEUKOCYTE ESTERASE Moderate(A) Negative 02/10/2025 1:56 PM CDT [facility] Urine URINE SPECIMEN / Unknown Non-Blood / Unknown 02/10/2025 1:06 PM CDT 02/10/2025 1:10 PM CDT Bel Epstein PA URINE Final Res ult Performing Organization Address [facility]/ZIP Co de Phone Number [facility] SENDOUT INTERNAL ZIP [phone] [place] [phone] * (ABNORMAL) HEMOGLOBIN A1C (02/10/2025 1:25 AM CDT) HEMOGLOBIN A1C SCREENING 7.0(H) <=6.4 % 02/10/2025 9:50 AM CDT [facility] Blood BLOOD SPECIMEN / Unknown Venipuncture / Unknown 02/10/2025 1:25 AM CDT 02/10/2025 1:28 AM CDT Narrative [facility] - 02/10/2025 9:50 AM CDT (<5.7%) Normal (5.7% to 6.4%) Indicates prediabetes (>=6.5%) Confirms diabetes Falsely low levels may be seen with: Recent Transfusion, Recent Significant Blood Loss, Hemolytic Diseases, or Falsely elevated levels may be seen with: Untreated Anemias, Splenectomy Mauro ASHTON CHEMISTRY Final Result Performing Organization Address [facility]/ZIP Co de Phone Number [facility] SENDOUT INTERNAL ZIP [phone] [place] [phone] * (ABNORMAL) CBC W PLT NO DIFF (02/10/2025 1:25 AM CDT) WHITE BLOOD COUNT 23.8(H) 4.5 - 11.0 thou/cu mm 02/10/2025 1:30 AM T [facility] RED BLOOD COUNT 4.12(L) 4.30 - 5.90 mil/cu mm 02/10/2025 1:30 AM T [facility] HEMOGLOBIN 10.9(L) 13.5 - 17.5 g/dL 02/10/2025 1:30 AM T [facility] HEMATOCRIT 33.5(L) 37.0 - 53.0 % 02/10/2025 1:30 AM [facility] MCV 81 80 - 100 fL 02/10/2025 1:30 AM [facility] MCH 26.5 26.0 - 34.0 pg 02/10/2025 1:30 AM [facility] MCHC 32.5 32.0 - 36.0 g/dL 02/10/2025 1:30 AM [facility] RDW 14.3 11.5 - 15.5 % 02/10/2025 1:30 AM [facility] PLATELET COUNT 356 140 - 440 thou/cu mm 02/10/2025 1:30 AM [facility] MPV 9.2 6.5 - 11.0 fL 02/10/2025 1:30 AM [facility] NRBC 0.0 % 02/10/2025 1:30 AM [facility] ABS NRBC 0.0 thou /cu mm 02/10/2025 1:30 AM [facility] Blood BLOOD SPECIMEN / Unknown Venipuncture / Unknown 02/10/2025 1:25 AM CDT 02/10/2025 1:28 AM CDT us Charlie Auguste MD HEMATOLOGY Final Res ult [facility] SENDOUT INTERNAL ZIP [phone] [place] [address] * SCAN-CARDIAC STRIP (02/09/2025 12:00 AM CDT) [...] candidate for conscious sedation. The endoscope [id number] was passed through the anus andadvanced to [...] 9:22 AM Procedure Code(s): --- Professional --- 51930, Colonoscopy, flexible; with removalof tumor(s), polyp(s), or other lesion(s) bysnare technique Diagnosis Code(s): --- Professional --- Z86.010, Personal history of colonicpolyps D12.2, Benign neoplasm of ascending colon K57.30, Diverticulosis of large intestine without perforation or abscess withoutbleeding CPT copyright 2021 [employer]. All rights reserved. The codes documented in this report are preliminary and upon manager inspection reviewmay be revised to meet current compliance [...] study was performed and interpreted by [facility], a service accredited by the Intersocietal Accreditation Commission (IAC/Vascular), www.intersocietal.org/vascular Report generated by [facility]. Final Procedure Note Valdemar Sandoval MD - [...] This study was performed and interpreted by [facility], a service accredited by the Intersocietal Accreditation Commission (IAC/Vascular),[email or web address].org/vascular Report generated by [employer]. Final us Warren Peña MD Fi nal Result from Last 3 Months or Most Recently Relevant to Health Maintenance Insurance PREFERRED [facility] MEDICARE PART B HB ONLY [employer] [...] Code Status Discussion: Not Discussed Care Teams Foam Molder Relationship Specialty Start Date End Date Santi Juarez MD [address] [place] [phone] PCP - General Family Practice 12/07/20
--- OUTSIDE RECORDS SUMMARY | 2025-05-03 10:58 | XMS_ITS | Clinical Summary ---
Author Organization [place] Address [address] [facility] [place] [address] Care Team Providers Care Forensic Science Technician Name Role Phone Guero Hutchinson MD Primary [...] on file Legal Sex Male 3:05 AM [employer] Gender Identity Not on file Sexual Orientation Not on file Last Filed Vital Signs Vital Sign Reading Time Taken Comments Blood Pressure 122/78 09/10/2017 9:11 AM [employer] Pulse 70 09/10/2017 9:11 AM [employer] Temperature 36.7 C (98 F) 03/26/2013 9:28 AM CDT Respiratory Rate 18 03/26/2013 9:28 AM CDT Oxygen Saturation 98% 03/26/2013 9:28 AM CDT Inhaled Oxygen Concentration - - Weight 106.6 kg (235 lb) 09/10/2017 9:11 AM [employer] Height 188 cm (6' 2) 09/10/2017 9:11 AM [employer] Body Mass Index 30.17 09/10/2017 9:11 AM [employer] Plan of Treatment Upcoming Encounters Date Type Department Care Team (Latest Contact Info) Description 05/07/2025 10:30 AM CDT Hospital Encounter [facility] [address] [phone] Uziel [place] DO [place] [facility] [address] [place] [address] 05/07/2025 10:30 AM CDT - 05/07/2025 11:15 AM CDT Surgery [facility] [address] [phone] Uziel [place] DO [place] [facility] [address] [place] [address] ESOPHAGOGASTRODUODENOSCOPY Scheduled Procedures Name Priority Associated Diagnoses Date/Ti al ESOPHAGOGASTRODUODENOSCOPY Abnormal finding on imaging 05/07/2025 10:30 AM CDT Insurance MEDICARE [employer] [place] [employer] Care Teams Forensic Science Technician Relationship Specialty Start Date End Date Guero Hutchinson MD [address] [id number] PCP - General Urology 11/14/15
[2025-05-03 11:01] VITALS: BP 165/74; PULSE 69; RESP 16; TEMP 36.2; O2SAT 97; BMI 23.8
--- NOTE | 2025-05-03 14:44 | W.ED.CHARTNO ---
ED Chart Note Chart Note Details Date: 05/03/25 Details: Patient checked in for a dizzy spell which had resolved while in triage. Due to high patient volumes, he was waiting in triage for a little over an hour, he had an appointment scheduled for today for preop appointment. He has a gastric mass, had previously scheduled endoscopy which had to be delayed due to high blood pressure, it is currently rescheduled for later this week and so he has a preop appointment today in order to accomplish that. I asked him whether he would like to be seen in the ER and risk missing his appointment or whether he would like to go over to his appointment then come back to the ER if he was still feeling poorly. At this time, he feels back to normal, would rather not miss his preop appointment as that will delay his upcoming procedure. Therefore, patient left the emergency department without being seen, will go see Dr. Juarez in clinic at 12:45 p.m., and return to the ER if either of them have concerns about needing to be seen in the ER today.
== END 2025-05-03 14:43 | disposition left against medical advice (07) ==
LOC: ED 14:42
PROVIDERS: PCP Family Medicine
DX: Z53.21 Procedure and treatment not carried out due to patient leaving prior to being seen by health care provider (principal)

== ENCOUNTER 2025-05-03 13:27 | Outpatient (CLI) | payer MEDICARE, BC, SELFPAY | END 2025-05-03 13:28 | disposition home or self-care (01) | LOC: NFLDREF 13:28 | PROVIDERS: PCP Family Medicine; Visit Provider Family Medicine | DX: Z01.818 Encounter for other preprocedural examination (principal) | CPT/HCPCS: 80053 ==

== ENCOUNTER 2025-06-29 15:31 | Emergency (ER) | payer MEDICARE, BC, SELFPAY ==
[2025-06-29 15:43] VITALS: BP 177/81; PULSE 88; RESP 18; TEMP 37.3; O2SAT 97; BMI 23.1
--- NOTE | 2025-06-29 17:06 | ED.DIZZY ---
HPI - Dizziness General Chief Complaint: Dizziness/Vertigo Stated Complaint: Dizzy, weak Time Seen by Provider: 06/29/25 16:41 History of Present Illness HPI Narrative: This 75-year-old male comes in reporting daily episodes of lightheadedness and fatigue after taking new plan of dosing for antihypertensive medicines. Couple weeks ago he had an appointment with his regular doctor and hydrochlorothiazide was discontinued and the patient now is been taking chlorthalidone and lisinopril. He does not report any chest pain. He states that he takes his medicine at about 830 in the morning and a few hours later he feels lightheaded and fatigued then later in the day these symptoms resolve. This has been happening day after day since change in his medicines. He states that he does check his blood pressure at home but has not recorded blood pressures when he is feeling these symptoms. Related Data Home Medications ?Medication ?Instructions ?Recorded ?Confirmed docusate sodium 100 mg capsule 100 mg PO BID 02/17/25 06/29/25 metformin 500 mg tablet,extended 1,000 mg PO QAM 02/18/25 06/29/25 release 24 hr Saccharomyces boulardii PO .QD 03/08/25 06/17/25 lisinopril 20 mg tablet 10 mg PO QDAY 06/17/25 Previous Rx's ?Medication ?Instructions ?Recorded atorvastatin 40 mg tablet 40 mg PO HS #90 tabs 04/05/25 epinephrine 0.3 mg/0.3 mL 0.3 ml IM .As Needed as needed PRN 04/06/25 injection, auto-injector anaphylaxis #2 ea glipizide 10 mg tablet, extended 10 mg PO QPM #90 tabs 04/06/25 release 24 hr hydroxyzine HCl 25 mg tablet 25 - 50 mg (1 - 2 x 25 mg) PO TID 04/22/25 PRN anxiety #30 tabs apixaban 5 mg tablet (Eliquis) 5 mg PO BID #180 tabs 06/09/25 diltiazem HCl 60 mg 60 mg PO BID #180 caps 06/09/25 capsule,extended release 12 hr chlorthalidone 25 mg tablet 25 mg PO QDAY #90 tabs 06/17/25 lisinopril 10 mg tablet 10 mg PO QDAY #90 tabs 06/17/25 Allergies Allergy/AdvReac Type Severity Reaction Status Date / Time bee venom protein (honey bee) Allergy Verified 06/17/25 13:00 Penicillins Allergy Verified 06/17/25 13:00 tamsulosin (From Flomax) AdvReac Intermediate orthostatic Verified 06/17/25 13:00 hypotension Review of Systems Status of ROS: Reports: 10 or more systems reviewed and unremarkable except as noted in History and below Narrative: Constitutional: No fevers, no weight gain or loss. Eyes: No discharge. No vision changes. HENT: No congestion, no sore throat, no ear pain. Cardiovascular: No chest pain, no palpitations. Respiratory: No shortness of breath, no wheezes, no cough. Gastrointestinal: No abdominal pain, no vomiting, no diarrhea. Genitourinary: No dysuria, no hematuria. Musculoskeletal: Normal range of motion. Skin: No rashes, no pruritis. Neurological: No weakness, sensory change, speech change. Endo/Heme/Allergies: No bruising or bleeding. No polydipsia. Pysch: no suicidality, no anxiety, no insomnia. All other systems reviewed and are negative. [facility] Medical History (Updated 06/29/25 @ 17:17 by Dejuan Esquivel MD) Atrial fibrillation ?I48.91 - Unspecified atrial fibrillation (ICD-10) Hypertension ?I10 - Essential (primary) hypertension (ICD-10) Hyperlipidemia ?E78.5 - Hyperlipidemia, unspecified (ICD-10) BPH (benign prostatic hyperplasia) ?N40.0 - Benign prostatic hyperplasia without lower urinary tract symptoms (ICD-10) Diabetes mellitus ?E11.9 - Type 2 diabetes mellitus without complications (ICD-10) Stenosis of right carotid artery (01/03/21) ?I65.21 - Occlusion and stenosis of right carotid artery (ICD-10) Hypercholesterolemia (04/18/15) ?E78.00 - Pure hypercholesterolemia, unspecified (ICD-10) Hematuria (04/18/15) ?R31.9 - Hematuria, unspecified (ICD-10) Benign neoplasm of colon (05/28/07) ?D12.6 - Benign neoplasm of colon, unspecified (ICD-10) Anaphylactic reaction to bee sting (04/18/15) ?T63.441A - Toxic effect of venom of bees, accidental (unintentional), initial encounter (ICD-10) ?T78.2XXA - Anaphylactic shock, unspecified, initial encounter (ICD-10) Allergic rhinitis (12/11/05) ?J30.9 - Allergic rhinitis, unspecified (ICD-10) Hyponatremia ?E87.1 - Hypo-osmolality and hyponatremia (ICD-10) Chronic hyponatremia ?E87.1 - Hypo-osmolality and hyponatremia (ICD-10) Right lumbar radiculopathy ?M54.16 - Radiculopathy, lumbar region (ICD-10) Leukocytosis ?D72.829 - Elevated white blood cell count, unspecified (ICD-10) Lumbar radiculopathy ?M54.16 - Radiculopathy, lumbar region (ICD-10) Chronic low back pain ?M54.50 - Low back pain, unspecified (ICD-10) ?G89.29 - Other chronic pain (ICD-10) Cerebrovascular accident (CVA) (07/2020) ?I63.9 - Cerebral infarction, unspecified (ICD-10) Bladder cancer (2013) ?C67.9 - Malignant neoplasm of bladder, unspecified (ICD-10) Allergic to bees ?Z91.030 - Bee allergy status (ICD-10) Adenomatous polyp of colon ?D12.6 - Benign neoplasm of colon, unspecified (ICD-10) Gout ?M10.9 - Gout, unspecified (ICD-10) Abnormal gait ?R26.9 - Unspecified abnormalities of gait and mobility (ICD-10) Surgical History History of amputation of toe ?Z89.429 - Acquired absence of other toe(s), unspecified side (ICD-10) History of colonoscopy ?Z98.890 - Other specified postprocedural states (ICD-10) History of tonsillectomy (1968) ?Z90.89 - Acquired absence of other organs (ICD-10) History of right-sided carotid endarterectomy ?Z98.890 - Other specified postprocedural states (ICD-10) Social History Narrative: SOCIAL HISTORY: He is single. Retired. One daughter living in [facility] that he does not see much. No longer working at [employer]. No longer working for the [employer]. 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 Code status is full. He does not want prolonged life support. His nephew, Adrien Araiza, of [place] is healthcare power of motor equipment commanding officer HABITS: Sporadic walking for exercise. Sporadic smoking in the past. He denies smoking at this point. No alcohol or recreational drug use. FAMILY HISTORY: No changes. Parents both . He did not know them well. Father around 80 of unknown cause. Mother around 70 of unknown cancer. Three sisters all living with borderline diabetes otherwise healthy. What is your current living situation?: I presently have a place to live Problems where you live: no known problems Problems where you live details: NA In the past 12 months, utilities in danger of being shut off: no In past 12 months, lack of transportation kept you from medical appts, meetings, work, or getting things needed for daily living: no In the past 12 mos, have been you worried that your food would run out before you had money to buy more?: never true In the past 12 mos, the food you bought just didn't last and you didn't have money to buy more?: never true Highest level of school completed/degree received: high school graduate Smoking Status: Former smoker What tobacco products do you use: cigarettes Smoking quit date/years: >15 years ago Do you use any of these nicotine containing products: None Second hand tobacco smoke exposure: No How often do you have a drink containing alcohol: never AUDIT-C Alcohol total score: 0 Non-prescribed substance use: denies use Caffeine: No How often does anyone, including family, friends and others, physically hurt you: never How often does anyone, including family, friends and others, insult or talk down to you: never How often does anyone, including family, friends and others, threaten you with harm: never How often does anyone, including family, friends and others, scream or curse at you: never service: Yes Exam Narrative: Exam Narrative: Constitutional: Well-developed, well-nourished, no acute distress. HEENT: Normocephalic, atraumatic. Neck: Normal range of motion. Nontender. Supple. Heart: Intact distal pulses. Lungs: No chest discomfort. No wheezes, rhonchi, or rales. Abdomen: Nontender. Back: Normal range of motion. Extremities: Normal range of motion. No injury. Skin: Intact. No rash. Warm. No erythema or pallor. Neurologic: No altered sensation. No weakness. Alert and oriented. Psychiatric: No suicidality. No anxiety or depression. No insomnia. Nursing notes and vitals signs are reviewed. Const: Vital Signs, click to edit/add: Vital Signs - 24 hr 06/29/25 15:43 Temperature 99.1 F Pulse Rate [Right Pulse Oximeter] 88 Respiratory Rate 18 Blood Pressure [Ri ght Upper Arm] 177/81 H Pulse Oximetry 97 Oxygen Delivery Me thod Room Air Course Vital Signs Vital signs: Initial Vital Signs Temperature 99.1 F 06/29/25 15:43 Temperature Source Temporal Artery Scan 06/29/25 15:43 Pulse Rate 88 06/29/25 15:43 Respiratory Rate 18 06/29/25 15:43 Blood Pressure 177/81 H 06/29/25 15:43 Blood Pressure Mean 113 H 06/29/25 15:43 Blood Pressure Position Sitting 06/29/25 15:43 Pulse Oximetry 97 06/29/25 15:43 Oxygen Delivery Method Room Air 06/29/25 15:43 Vital Signs Temperature 99.1 F 06/29/25 15:43 Pulse Rate 88 06/29/25 15:43 Respiratory Rate 18 06/29/25 15:43 Blood Pressure 177/81 H 06/29/25 15:43 Pulse Oximetry 97 06/29/25 15:43 Oxygen Delivery Method Room Air 06/29/25 15:43 Temperature 99.1 F 06/29/25 15:43 Pulse Rate 88 06/29/25 15:43 Respiratory Rate 18 06/29/25 15:43 Blood Pressure 177/81 H 06/29/25 15:43 Pulse Oximetry 97 06/29/25 15:43 Oxygen Delivery Method Room Air 06/29/25 15:43 MDM - Dizziness MDM Narrative Medical decision making narrative: This patient comes in reporting symptoms of lightheadedness and fatigue that are occurring every day an hour to after taking his morning meds. He had his medications changed few weeks ago and these symptoms have occurred since then. I did review his recent visit report and it current medications. I see that he is taking chlorthalidone 25 mg daily, lisinopril 10 mg daily, and diltiazem 60 mg extended release twice daily. The patient is taking both chlorthalidone and lisinopril in the morning. This is likely too much medicine for him and when the peak effect dissipates he is feeling better. I recommended taking 1 of these medicines in the morning and the other 1 in the evening. I recommended that he take lisinopril in the morning and chlorthalidone in the evening. If he is still encountering similar symptoms he could give a trial of discontinuing lisinopril in the morning and continuing with chlorthalidone in the evening. All along he should record blood pressures along with a time of day that he is checking the blood pressure and if he is having any symptoms at the time. He should follow up with his primary physician for recheck. ECG Data Attestation: I personally reviewed and interpreted this ECG as follows: Interpretation: Normal sinus rhythm. Rate is 63 beats per minute. There are no ST or T-wave abnormalities. Discharge Plan Discharge Clinical Impression: Adverse reaction to drug Patient Disposition: Home, Self-Care Condition: Stable Additional Instructions: Take lisinopril in the morning and chlorthalidone in the evening. Continue with other medications as prescribed. Check blood pressure at various times she the day and especially if having symptoms of lightheadedness or fatigue. Write down the time at which blood pressures are recorded at home also. If still feeling fatigue and lightheadedness give a trial of holding lisinopril also in the morning and continuing with chlorthalidone in the evening. Follow-up with primary physician to review these plans. Prescriptions: No Action Saccharomyces boulardii [Daily Probiotic (S. boulardii)] PO .QD atorvastatin 40 mg tablet 40 mg PO HS Qty: 90 3RF glipizide 10 mg tablet extended release 24hr 10 mg PO QPM Qty: 90 3RF Rx Instructions: TAKES BEFORE SUPPER docusate sodium 100 mg capsule 100 mg PO BID hydroxyzine HCl 25 mg tablet 25 - 50 mg PO TID PRN (Reason: anxiety) Qty: 30 1RF diltiazem HCl 60 mg capsule,extended release 12 hr 60 mg PO BID Qty: 180 1RF Eliquis 5 mg tablet 5 mg PO BID Qty: 180 1RF lisinopril 20 mg tablet 10 mg PO QDAY lisinopril 10 mg tablet 10 mg PO QDAY Qty: 90 1RF chlorthalidone 25 mg tablet 25 mg PO QDAY Qty: 90 1RF metformin 500 mg tablet extended release 24 hr 1,000 mg PO QAM epinephrine 0.3 mg/0.3 mL auto-injector 0.3 ml IM .As Needed as needed PRN (Reason: anaphylaxis) Qty: 2 0RF Follow Up/Referrals: Santi Juarez MD [Primary Care Provider, Family Practice] Stand Alone Forms: [employer] Info Instructions
--- OUTSIDE RECORDS SUMMARY | 2025-06-29 17:51 | XMS_ITS | Data Portability ---
Author Organization [place] [facility] Address [address] [place] [address] Care Team Providers Care Steam Table Associate Name Role Phone DOMI SHEA Primary Care Provider [phone] Assessment Encounter Date Assessment Date Assessment LastModified by Organization Details LastModified Time 10/15/2024 10/15/2024 74 year old male with a history of benign prostatic hyperplasia with lower urinary tract symptoms, urinary retention, and gross hematuria. Not available 10/15/2024 14:28:45 04/28/2025 04/28/2025 This is a 75 year old male with a history of gross hematuria, benign prostatic hyperplasia with lower urinary tract symptoms, and urinary retention. Not available 04/27/2025 09:51:24 Plan of Treatment Reminders Order Date Submit Date Provider Last Modified By Organization Details Last Modified Time Details Appointments LAB BLOOD DRAW 2025 08:10A M [facility]EN[facility] Not available Not available Not available ESTABLISH ED 10 2025 03:00P M Obey Pedraza MD Not available Not available Not available Lab PSA, total, serum or plasma 2024 025 [facility], [address], [address], [place], [address], 04/28/2025 15:13:58 Referral None recorded. Procedures None recorded. Surgeries laser enucleati on of prostate with morcellat ion (SURG) 2024 025 AUDREY Not available 02/04/2025 10:03:36 Imaging None recorded. Medication Orders None recorded. Patient TargetsNo targets recorded. Patient Instructions Encounter Date Encounter Id Patient Instructions Last Modified By Organization Details Last Modified Time 10/15/2024 [id number] Benign prostatic hyperplasia with lower urinary tract [...] with chronic changes given his outlet obstruction. the medical centert68 Not available 10/15/2024 14:28:35 04/28/2025 [id number] Benign prostatic hyperplasia with lower urinary tract symptoms: He is doing quite well now. He is emptying well and sleeping through the night. He is not having any incontinence and otherwise doing quite well. We will check a new baseline prostate specific antigen prior. Not available 04/28/2025 13:07:38 Reason for Referral None Reported. Results Created Date Observation Date Name Description Value Unit Range Abnormal Flag Note LastModifiedBy Organization Detail LastModifiedTime 10/02/19 25 10/02/2024 UA MICRO SCOPI C (ABNO RMAL COLOR ) U-WBC 10 - 25 [hpf] 0 - 2 abnormal Not Available [facility] [address] [facility], [place], [address], 10/02/2024 11:59:38 10/02/19 25 10/02/2024 UA MICRO SCOPI C (ABNO RMAL COLOR ) U-RBC PACKED [hpf] 0 - 2 abnormal Not Available [facility] [address], [place], [address], 10/02/2024 11:59:38 10/02/19 25 10/02/2024 UA MICRO SCOPI C (ABNO RMAL COLOR ) bacteria MANY [hpf] none;r are abnormal Not Available [facility] [address], [place], [address], 10/02/2024 11:59:38 10/02/19 25 10/02/2024 UA MICRO [...] based on the resul t. Luis Carlos e allow up to one week for provi katy revie w. Not Available [facility] [address], [place], [address], 10/02/2024 11:59:38 10/02/19 25 10/02/2024 UA MICRO SCOPI C (ABNO RMAL COLOR ) sperm PRESEN T /hpf none-s een abnormal Not Available [facility] [address], [place], [address], 10/02/2024 11:59:38 10/02/19 25 10/02/2024 URINE CULTU [...] ate 1) Sensi tivit y Ronel sis [place] te 1 ----- ----- ----- ----- ----- [...] s Desk Refer ence or from the [facility] actur er. S= Susce ptibl e;I= Inter [...] for provi katy revie w. Not Available [facility] [address], [place], [address], 10/04/2024 12:02:22 04/28/20 25 04/28/2025 PSA, TOTAL -ROCH E PSA, total 0.31 NG/mL 0.00-4 .00 This resul t is repor emmie using a new metho dolog y for Total PSA. Previ ous resul ts using the old metho d are not direc tly marlon rable . The expec emmie varia tion is small ( appro ximat tavo 1% diffe rence https ://pu bmed. ncbi. nlm.n ih.go v/346 42538 /), but pleas e consi katy a new basel ine for the patie nt. This lab resul t is being provi ded to you and your provi katy at the same time in compl iance with the Centu ry Cures Act. Your provi katy may not have had time to revie w and make recom menda tions based on the resul tGerman zacarias allow up to one week for provi katy revie w. Not Available [facility] [address], [place], [address], 04/28/2025 15:13:58 09/23/19 25 09/23/2024 CT, urogr am No observ ation record ed. [email or web address] [facility] [address], [place], [address], 10/13/2024 08:55:07 Result Notes None recorded. Problems Name Problem SNOMED Code Status Onset Date Resolution Date Notes Provider Name and Address Organization Details Recorded Time Retention of urine 596923418 Active 2024 Kurt Meat null, [facility] 5 12:52:01 Type 2 diabetes mellitus 08484887 Active 2024 Kurt Meat null, [facility] 5 12:52:35 Hypertensiv e disorder 89313799 Active 2024 [facility], [facility] 5 12:52:38 Lower urinary tract symptoms due to benign prostatic hypertrophy 4266088066924 1 Active 2024 Kurt Meat null, [facility] 5 10:56:02 Problem Notes None recorded. Procedures Surgical History Date Name Laterality Status Provider Name and Address Organization Details Recorded Time 04/28/20 25 COMPLEX VISIT completed Obey Pedraza MD [address] [facility] [address], [place], [address], [facility] 04/27/2025 09:51:02 04/28/20 25 Bladder Scan completed Maryse Kirkpatrick [facility] 04/28/2025 12:41:21 04/28/20 25 Blood Draw/DRESS MARKER/PSA RESULTS completed Fay Weinstein [facility] 04/28/2025 13:24:41 01/29/20 25 Fill and Pull/Voiding Trial/TOV completed Britt Kennedy [facility] 01/28/2025 13:02:59 01/27/20 25 LASER ENUCLEATION OF PROSTATE WITH MORCELLATION (SURG) completed Obey Pedraza MD [address] [place] [address],[address], [place], [address], [facility] 04/28/2025 13:05:45 12/01/19 25 Urethral Catheter Change completed Karina Polo [facility] 11/30/2024 15:17:51 10/30/19 25 SWENSON CHANGE completed Claudia Rossi [facility] 10/29/2024 16:42:14 10/16/19 25 COMPLEX VISIT completed Obey Pedraza MD [address] [place] [address],[address], [place], [address], [facility] 10/15/2024 14:26:19 10/07/19 25 Blood Draw/DRESS MARKER/PSA RESULTS cancelled Elo Bishop [facility] 10/05/2024 11:50:19 09/29/19 25 Urodynamic Studies completed Dwaine Kong MD [address] [place] [address],[address], [place], [address], [facility] 10/11/2024 11:34:02 09/29/19 25 Swenson Catheter Insertion completed Chelsey Munguia [facility] 09/29/2024 15:46:01 09/09/19 25 Cystoscopy- male completed Obey Pedraza MD [address] [place] [address],[address], [place], [address], [facility] 09/09/2024 11:09:52 09/09/19 25 Past Data Reviewed completed Obey Pedraza MD [address] [place] [address],[address], [place], [address], [facility] 09/09/2024 09:40:02 01/11/20 24 Colonoscopy completed Kurt [facility] 09/09/2024 10:56:16 Imaging Results None recorded. Procedure Notes None recorded. Medical Equipment None Reported. Allergies Allergen ID Allergen Name Allergen Category Reaction Reaction Severity Criticality Documentation Date Start Date Code Code System Note Provider Name and Address Organization Details Recorded Time 567771 honey bee venom medicatio n Not available Not available Not available 09/01/2024 94068 7 RxNorm Kurt Meath satinder, [facility] 5 12:51:15 313304 Product containin g penicilli n (product) medicatio n Not available Not available Not available 09/01/2024 55335 8001 SNOMED Kurt Meath satinder, [facility] 5 12:51:21 409513 honey bee venom environme nt Not available Not available Not available 06/09/20252024 00430 7 RxNorm Not Available audrey - External Data [employer] - prod 16:02:47 567032 tamsulosi n medicatio n Not available Not available [facility] 06/09/20252024 56052 RxNorm Not Available audrey - External Data Service - prod 16:02:47 948741 bee pollen environme nt,medica tion Not available Not available Not available 06/09/20252004 61229 7 RxNorm unrec ogniz ed react ion (text : *Unkn own, code: 16753 005) ([facility]) Not Available audrey - External Data Service - prod 16:07:58 Medications Name Sig Start Date Stop Date Status Note LastModified by Organization Details LastModified Time atorvastati n 40 mg tablet Take 1 tablet every day by oral route. active Not Available Not Available No t Available metformin 500 mg tablet Take 1 tablet twice a day by oral route. active Not Available Not Available No t Available levofloxaci n 250 mg tablet TAKE ONE TABLET BY MOUTH DAILY FOR 7 DAYS active Not Available Not Available No t [...] Updated DateTime 10/15/2024 187.96 cm Kurt Owens [facility] 13:52:17 Date Recorded Body height Provider Name an d Address Organization Details Last Updated DateTime 10/29/2024 187.96 cm Claudia Leticiagenevieve [facility] 10/29/2024 16:34:46 Date Recorded Body height Provider Name an d Address Organization Details Last Updated DateTime 11/30/2024 187.96 cm Karina Vievering [facility] 11/30/2024 14:53:23 Date Recorded Body height Provider Name an d Address Organization Details Last Updated DateTime 01/28/2025 187.96 cm Britt Kenneydwin [facility] 01/28/2025 13:17:03 Date Recorded Body height Provider Name an d Address Organization Details Last Updated DateTime 04/28/2025 187.96 cm Lynkathryne Lightfeather [facility] 04/28/2025 12:41:24 Social History Question Answer Notes LastModified by Organizat ion Details LastModified Time Tobacco Smoking Status Former Smoker Kurt Owens null, [facility] 09/09/2024 10:55:43 Do You Have An Advance Directive? No Information not available 06/09/2025 What Is Your Level Of Caffeine Consumption? None Information not available 09/09/2024 When Did You Quit Smoking? 6-10yearssi ncelastciga rette Information not available 09/09/2024 Do You Have A Medical Power Of Sugar Reprocess Operator Head? No Information not available 06/09/2025 What Was The Date Of Your Most Recent Tobacco Screening? 04/28/2025 [email or web address] Information not available 04/28/2025 How Much Tobacco Do You Smoke? No [...] trivalent, PF 4 completed Kurt Meath null, [facility] 09/09/2024 10:52:31 zoster recombinant 3 [facility] 10:52:31 zoster recombinant 3 completed Kurt Meath null, [facility] 09/09/2024 10:52:31 Influenza, high-dose, quadrivalent, PF 1 completed Kurt Meath null, [facility] 09/09/2024 10:52:31 Influenza, high-dose, quadrivalent, PF 0 completed Kurt Meath null, [facility] 09/09/2024 10:52:31 Influenza, adjuvanted, quadrivalent, PF 3 completed Kurt Meath null, [facility] 09/09/2024 10:52:31 Influenza, adjuvanted, quadrivalent, PF 2 completed Kurt Meath null, [facility] 09/09/2024 10:52:31 COVID-19, mRNA, LNP-S, PF, 30 mcg/0.3 mL dose 1 completed Kurt Meath null, [facility] 09/09/2024 10:52:31 COVID-19, mRNA, LNP-S, PF, 30 mcg/0.3 mL dose 1 completed Kurt Meath null, [facility] 09/09/2024 10:52:31 COVID-19, mRNA, LNP-S, PF, 30 mcg/0.3 mL dose 1 completed Kurt Meath null, [facility] 09/09/2024 10:52:31 COVID-19, mRNA, LNP-S, bivalent, PF, 30 mcg/0.3 mL dose 2 completed Kurt Meat null, [facility] 09/09/2024 10:52:31 RSV, recombinant, protein subunit RSVpreF, adjuvant reconstituted, 0.5 mL, PF 4 completed Kurt Meat null, [facility] 09/09/2024 10:52:31 COVID-19, mRNA, LNP-S, PF, 50 mcg/0.5 mL 4 completed Kurt Meat null, [facility] 09/09/2024 10:52:31 COVID-19, mRNA, LNP-S, PF, 50 mcg/0.5 mL 3 completed Kurt Meat null, [facility] 09/09/2024 10:52:31 pneumococcal polysaccharide PPV23 8 completed Kurt Meath null, [facility] 09/09/2024 10:52:31 Tdap 6 completed Kurt Meat null, [facility] 09/09/2024 10:52:31 Pneumococcal conjugate PCV 13 7 completed Kurt Meat null, [facility] 09/09/2024 10:52:31 zoster live 7 completed Kurt Meath null, [facility] 09/09/2024 10:52:31 Influenza, high-dose, trivalent, PF 8 completed Kurt Meath null, [facility] 09/09/2024 10:52:31 Influenza, high-dose, trivalent, PF 7 completed Kurt Meath null, [facility] 09/09/2024 10:52:31 Influenza, high-dose, trivalent, PF 9 completed Kurt Meath null, [facility] 09/09/2024 10:52:31 Td (adult), 2 Lf tetanus toxoid, preservative free, adsorbed 5 completed Kurt Meath null, [facility] 09/09/2024 10:52:31 Hep A, adult 3 completed Kurt Meath null, [facility] 09/09/2024 10:52:31 typhoid, ViCPs 3 completed Kurt Meath null, [facility] 09/09/2024 10:52:31 influenza, seasonal, intradermal, preservative free 2 completed Kurt Meath null, [facility] 09/09/2024 10:52:31 influenza, seasonal, intradermal, preservative free 1 completed Kurt Meath null, [facility] 09/09/2024 10:52:31 Influenza, split virus, quadrivalent, PF 6 completed Kurt Meath null, [facility] 09/09/2024 10:52:31 Influenza, split virus, quadrivalent, PF 4 completed Kurt Meath null, [facility] 09/09/2024 10:52:31 COVID-19, mRNA, LNP-S, PF, 25 mcg/0.25 mL 5 completed Not Available [facility] 04/28/2025 12:15:26 Past Encounters Encounter ID Performer Location Encounter Start Date Encounter Closed Date Diagnosis/Indication Diagnosis SNOMED-CT Code Diagnosis ICD10 Code Diagnosis IMO Codes Diagnosis Note [id number] Obey Pedraza MD [facility] [address] [place] [phone] 09/09/2024 10:45:26 09/09/2024 11:49:30 Lower urinary tract symptoms due to benign prostatic hypertrophy 0684911222 9101 N40.1 Retention of urine 22072 4002 R33.9 Renato hematuria 87056891 5 R31.0 [id number] MD Geovanni Fish [address] [place] [phone] 09/29/2024 12:37:22 10/12/2024 09:16:29 Lower urinary tract symptoms due to benign prostatic hypertrophy 7117544633 9101 N40.1 Retention of urine 22049 4002 R33.9 [id number] MD Dinesh FishChristopher german[address] [address] 10/02/2024 11:30:07 10/07/2024 04:01:24 Urinary tract infectious disease 51775933 N39.0 Per 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 UA/UC today. [id number] MD Dinesh FishChristopher melendez [address] [place] [phone] 0 10/15/2024 13:50:10 10/19/2024 09:45:18 Retention of urine 438958312 R33.9 Lower urin winsome tract symptoms due to benign prostatic hypertrophy 0578182193 9101 N40.1 Renato hematuria 37648490 5 R31.0 [id number] MD Dinesh FishChristopher melendez [address] [place] [address] 10/29/2024 14:34:46 10/29/2024 16:55:37 Retention of urine 744992680 R33.9 [id number] MD Dinesh FishChristopher melendez [address] [place] [phone] 0 11/30/2024 14:41:58 12/02/2024 15:58:16 Retention of urine 603710886 R33.9 21942 [id number] MD Dinesh FishChristopher melendez [address] [place] [phone] 01/28/2025 10:11:32 02/01/2025 15:43:45 Retention of urine 863699794 R33.9 [id number] Obey Pedraza MD [facility] [address] [address] 04/28/2025 12:13:36 05/10/2025 18:28:44 Benign prostatic hyperplasia 181686927 N40.0 [id number] Retention of urine 65052 4002 R33.9 13055 Renato hematuria 65237636 5 R31.0 [id number] Health Concerns Section Related Observation LastModified by Organization Detai ls LastModified Time None Recorded Concern Status LastModified by Organization Details LastModified Time None Recorded Advance Directives Directive N: Payers Insurance Date Sequence Insurance Name Policy Number Policy Bustamante Covered Member ID Bustamante Member ID Guarantor Name 04/25/2025 1 [place] [employer] Suresh Martinez [id number] Suresh Martinez 05/10/2025 2 [facility] [id number] Suresh Martinez [id number] Suresh Martinez Notes Date Note Type Note Provider Name and Address Organization Details Recorded Time 10/15/2024 text/html This is a 74 year old male who is referred for the evaluation and management of urinary retention and gross hematuria. He presented for the evaluation of worsening voiding symptoms.He was found to be in urinary retention and he was catheterized.He returned shortly thereafter with repeat retention.A Swenson was placed with 2.0 liters of output and he developed gross hematuria and was admitted at [facility] for continuous bladder irrigation.He has [...] evidence of outlet obstruction.He was admitted at [facility] from 10/06/2024 - 10/10/2024 with gross hematuria and clot urinary retention.He required cystoscopy, clot evacuation, and fulguration of bleeding 10/08/2024.He is here today to discuss next steps in management. Obey Pedraza MD [address] [facility] [address], [place], [address], [facility] 10/15/2024 14:28:58 04/28/2025 text/html This is a 75 year old male who is here for the ongoing management of benign prostatic hyperplasia with lower urinary tract symptoms and urinary retention. He is status post cystoscopy and bi-polar enucleation of the prostate 01/26/2025.Patholog y: Benign2 weeks following surgery he developed clot urinary retention.He is status post cystoscopy, clot evacuation, and fulguration (02/13/2025).He is now catheter free.International Prostate Symptom Score: 6He denies dysuria or gross hematuria. Fay rajan [facility] 04/28/2025 13:25:12
== END 2025-06-29 17:23 | disposition home or self-care (01) ==
PROVIDERS: Emergency Provider Emergency Medicine Emergency Medical Services; PCP Family Medicine
DX: R42 Dizziness and giddiness (principal); R53.83 Other fatigue; T46.4X5A Adverse effect of angiotensin-converting-enzyme inhibitors, initial encounter
CPT/HCPCS: 99284

== ENCOUNTER 2025-07-19 08:25 | Outpatient (CLI) | payer MEDICARE, BC, SELFPAY | END 2025-07-19 08:26 | disposition home or self-care (01) | LOC: NFLDREF 07-23 10:04 | PROVIDERS: PCP Family Medicine; Referring Provider Family Medicine; Visit Provider Family Medicine | DX: I10 Essential (primary) hypertension (principal) | CPT/HCPCS: 80048 ==